=== PATIENT | male | born 1950 | race Asian ===

== ENCOUNTER 2023-08-20 10:38 | Outpatient (AMB) | payer MEDICARE, MEDICAID, SELFPAY ==
--- NOTE | 2023-08-20 10:40 | HO.NEPHOV_ITS ---
Intake Vital Signs 08/20/23 10:44 Height 5 ft 5 in Weight 187 lb BMI 31.1 BP 140/90 H Blood Pressure Location Rt brachial Position Sitting Pulse 92 Intake Visit Reasons: CKD (chronic kidney disease) Equipment Operator/Laborer Required: No Accompanied by: Spouse Allergies labetalol Allergy (Verified 08/19/23 16:36) Unknown tetanus toxoid, adsorbed Allergy (Verified 08/19/23 16:36) Unknown HPI HPI Comments History of Present Illness Details Juan Carlos was seen in follow up for his CKD. He has had H/O bleed around his acquired solitary kidney needing HD. He recovered his renal function and had come off HD. He has been having edema needing diuretic dose adjustment lately. His psych medications had been adjusted recently. He denies chest pain, nausea, vomiting, diarrhea but has SOB, PND & orthopnea. His urine output is good. He has no blood in the urine. He has not had any hospitalizations recently. He tries to hydrate himself and avoids NSAID's. Assessment & Plan Assessment & Plan (1) Chronic Kidney Disease: Code(s): N18.9 - Chronic kidney disease, unspecified Plan Renal function is at baseline Clinically hypervolemic C/W Bumex 2 mg daily C/W Metolazone 5 mg until Friday inclusive After Friday, Metalozone 5 mg twice a week Fluid restriction. 2 Gm Na restriction Will be candidate for Imdur soon All questions answered; F/U 2 weeks Coding Level of Care Code Est Pt Level 4 (56162) Diagnoses Chronic Kidney Disease N18.9 [facility] Medical History (Updated 08/20/23 @ 10:58 by Hellen Walker MA) Depression Anxiety CHF (congestive heart failure) COPD (chronic obstructive pulmonary disease) Hypertension Presence of Watchman left atrial appendage closure device Surgical History (Updated 08/20/23 @ 10:58 by Hellen Walker MA) H/O ankle fusion History of heart artery stent History of back surgery Family History (Updated 08/20/23 @ 11:00 by Hellen Walker MA) Father Leukemia Mother Heart disease Hypertension Social History Alcohol intake: never Patient Tobacco Use Status: Former Tobacco user Results Reviewed Results Reviewed: Creatinine 1.3
--- OUTSIDE RECORDS SUMMARY | 2023-08-20 10:40 | XMS_ITS | Continuity of Care Document ---
Author Name Unknown Organization [facility] Address [address] [place] [address]- Care Team Providers Care Brake Press Operator Name Role Phone Marbella RINCON, Brennan Primary Care Physician [facility]counter [facility] Date(s): 12/13/20 - 01/12/21 [facility] [address] [place] [address]- Allergies, Adverse Reactions, Alerts Substance Reaction Severity Status labetalol Active tetanus toxoid Active HORSE SERUM PROTEINS AB.IGE.RAST CLASS Active Immunizations Given and Recorded Vaccine Date Status Refusal Reason zoster vaccine, inactivated 01/03/21 Recorded zoster vaccine, inactivated 01/03/21 Recorded zoster vaccine, inactivated 10/03/20 Recorded SARS-CoV-2 (COVID-19) mRNA-1273 vaccine 12/09/20 R ecorded SARS-CoV-2 (COVID-19) mRNA-1273 vaccine 11/17/20 R ecorded SARS-CoV-2 (COVID-19) mRNA-1273 vaccine 11/17/20 R ecorded Influenza Virus Vaccine (oldterm) 08/16/20 Recorde d influenza virus vaccine, inactivated 07/09/19 Give n influenza virus vaccine, inactivated 1 08/12/18 Gi tiera influenza virus vaccine, inactivated 07/24/17 Give n pneumococcal 23-valent vaccine 2 08/12/18 Given pneumococcal 23-valent vaccine 07/22/11 Given pneumococcal 13-valent vaccine 05/07/16 Given Zoster Vaccine Live 07/27/15 Given tetanus/diphtheria/pertussis, acel(Tdap) 10/20/13 Given 1Result Comment: [08/12/2018] [facility] [id number] 2Result Comment: [08/12/2018] [facility] [id number] Medications Advair Diskus 500 mcg-50 mcg inhalation powder 1 puffs, Inhalation, 2 times a day, # 180 each, 0 Refills, Maintenance, Powder Start Date: 10/23/12 Status: Ordered amLODIPine 10 mg oral tablet 10 mg, 1, tablet, By Mouth, Daily, # 90 tablet, Refills 3, Tot. Refills 3, Maintenance, 06/02/20 13:26:00 EDT, Route to Pharmacy Electronically, [facility]/pharmacy #[id number], 167.6, cm, 03/27/20 8:14:00 EDT, Height, 90.7, kg, 09/08/19 8:17:00 EST, Dry Weight Start Date: 06/02/20 Stop Date: 05/28/21 Status: Ordered aspirin 81 mg oral delayed release tablet 81 mg, 1, tablet, By Mouth, Daily, # 30 tablet, Refills 0, Maintenance, 12/27/18 10:46:04 EDT Start Date: 12/27/18 Status: Ordered atorvastatin 40 mg oral tablet 1 tablet = 40 mg, By Mouth, Daily, # 30 tablet, 11 Refills, Maintenance, 10/25/20 7:17:00 EST, Tablet, Partial fill upon patient request if the prescription is for a schedule II opioid drug. Start Date: 10/25/20 Status: Ordered carvedilol 25 mg oral tablet 25 mg, 1, tablet, By Mouth, 2 times a day, # 60 tablet, Refills 11, Tot. Refills 11, Maintenance, 06/17/19 6:49:21 EDT, Route to Pharmacy Electronically, [id number], [facility]/pharmacy #[id number] Start Date: 06/17/19 Status: Ordered Centrum Silver Men's 1 tablet, By Mouth, Daily, 0 Refills, Maintenance, 09/19/17 9:44:06 Start Date: 09/19/17 Status: Ordered cetirizine 10 mg oral tablet 1 tablet = 10 mg, By Mouth, Daily, # 30 tablet, 0 Refills, Maintenance, Tablet Start Date: 01/17/13 Status: Ordered CPAP Machine See Instructions, # 1 each, Refills 0, Tot. Refills 0, Maintenance, BiPAP 20/15 cm with a heated humidifier. Recommend ordering a machine with compliance data tracking capabilities and following residual AHI. DX RICKIE G47.33, 04/05/19 13:25:34 EDT, Com... Start Date: 04/05/19 Status: Ordered CPAP Equipment See Instructions, # 1 each, Refills 11, Tot. Refills 11, Maintenance, Cpap supplies- mask, tubing, filters, headgear, water chamber, chin strap dx RICKIE G47.33, 04/05/19 13:25:39 EDT, Compound Start Date: 04/05/19 Status: Ordered Eliquis 5 mg oral tablet 1 tablet, By Mouth, 2 times a day, # 180 tablet, 5 Refills, Maintenance, 12/25/20 9:10:00 EST, [facility] STORE [id number], 167.6, cm, 11/28/20 10:41:00 EST, Height, 90.7, kg, 09/08/19 8:17:00 EST, Dry Weight Start Date: 12/25/20 Status: Ordered fenofibrate 160 mg oral tablet 0.5 tablet, By Mouth, Daily, # 45 tablet, 1 Refills, Maintenance, 11/27/20 14:33:00 EST, [facility]/pharmacy #[id number], 167.6, cm, 10/25/20 13:12:00 EST, Height, 90.7, kg, 09/08/19 8:17:00 EST, Dry Weight Start Date: 11/27/20 Status: Ordered hydrochlorothiazide 12.5 mg oral tablet See Instructions, 2 tabs po qAm and 1 tab qPM, # 90 each, 5 Refills, Maintenance, 08/14/20 16:03:00EDT, [facility]/pharmacy #[id number], dose increase, 167.6, cm, 03/27/20 8:14:00 EDT, Height, 90.7, kg, :17:00 EST, Dry Weight Start Date: 08/14/20 Status: Ordered Incruse Ellipta 62.5 mcg/inh inhalation powder 1 each, Inhalation, Every 24 hours, doses should be taken at least 24 hours apart, # 30 each, 0 Refills, Maintenance, 12/26/18 10:40:28 EST, Powder Start Date: 12/26/18 Status: Ordered lisinopril 20 mg oral tablet 20 mg, 1, tablet, By Mouth, Daily, # 30 tablet, Refills 11, Tot. Refills 11, Maintenance, 06/02/20 13:26:00 EDT, [id number] 167.6, cm, 03/27/20 8:14:00 EDT,Height, 90.7, kg, 09/08/19 8:17:00 EST, Dry Weight Start Date: 06/02/20 Status: Ordered LORazepam 0.5 mg oral tablet 1 tablet = 0.5 mg, By Mouth, Daily, PRN as needed for anxiety, for 30 days, # 30 tablet, 2 Refills,Acute 02/26/21 11:08:00 EDT, 11/28/20 11:08:00 EST, Tablet, [facility]/pharmacy #[id number], 167.6, cm, 11/28/2109:41:00 EST, Height, 90.7, kg, 09/08/19 8:17:00 ES... Start Date: 11/28/20 Stop Date: 02/26/21 Status: Ordered nitroglycerin 0.4 mg sublingual tablet 1 tablet = 0.4 mg, Sublingual, Every 5 minutes, PRN for chest pain, # 100 tablet, 3 Refills, Maintenance, 11/07/17 7:56:13, Tablet Start Date: 11/07/17 Status: Ordered omeprazole 40 mg oral enteric coated capsule See Instructions, TAKE 1 CAPSULE BY MOUTH 2 TIMES A DAY, # 180 capsule, 0 Refills, Soft Stop, 11/07/20 4:07:00 EST, [facility]/pharmacy #[id number], 167.6, cm, 10/25/20 13:12:00 EST, Height, 90.7, kg, 09/08/19 8:17:00 EST, Dry Weight Start Date: 11/07/20 Status: Ordered One Touch Delica Lancets See Instructions, # 1 box, Refills 1, Tot. Refills 1, Maintenance, 1 box = 100 lancets Check blood sugar bid icd 10 E11.9, 11/04/18 11:32:01 EST, Compound Start Date: 11/04/18 Status: Ordered One Touch Verio glucometer One Touch Verio glucometer, See Instructions, # 1 each, Refills 0, Tot. Refills 0, Maintenance, Test glucose levels bid Use with One Touch test strips and lancets ICD 10 E11.9, 11/04/18 11:34:09 EST,Compound Start Date: 11/04/18 Status: Ordered One Touch Verio test strips One Touch Verio test strips, See Instructions, # 60 each, Refills 11, Tot. Refills 11, Maintenance,Use with One Touch Verio glucometer to check glucose bid ICD 10 E 11.9, 11/04/18 11:35:47 EST, Compound Start Date: 11/04/18 Status: Ordered potassium chloride 10 mEq oral tablet, extended release 1 tablet = 10 mEq, By Mouth, Daily, # 30 tablet, 11 Refills, Maintenance, 08/31/20 11:42:00 EST, [facility]/pharmacy #[id number], 167.6, cm, 03/27/20 8:14:00 EDT, Height, 90.7, kg, 09/08/19 8:17:00 EST, Dry Weight Start Date: 08/31/20 Status: Ordered ProAir HFA 90 mcg/inh inhalation aerosol with adapter 2 puffs, Inhalation, Every 4 hours, PRN for wheezing, # 8.5 Gm, 0 Refills, Maintenance, Aerosol Start Date: 10/23/12 Status: Ordered rOPINIRole 1 mg oral tablet 2 tablet = 2 mg, By Mouth, Daily at bedtime, # 180 tablet, 1 Refills, Maintenance, 12/22/20 12:40:00 EST, Tablet, [facility]/pharmacy #[id number], 167.6, cm, 11/28/20 10:41:00 EST, Height, 90.7, kg, 09/08/19 8:17:00 EST, Dry Weight Start Date: 12/22/20 Stop Date: 06/20/21 Status: Ordered sertraline 100 mg oral tablet 1.5 tablet = 150 mg, By Mouth, Daily, # 45 tablet, 11 Refills, Maintenance, 11/28/20 11:02:00 EST, Tablet, [facility]/pharmacy #[id number], dose increase, 167.6, cm, 11/28/20 10:41:00 EST, Height, 90.7, kg, 09/08/19 8:17:00 EST, Dry Weight Start Date: 11/28/20 Stop Date: 11/23/21 Status: Ordered sertraline 100 mg oral tablet 2 tablet = 200 mg, By Mouth, Daily, DOSE INCREASE, # 60 tablet, 11 Refills, Maintenance, 01/08/21 14:15:00 EDT, Tablet, [facility]/pharmacy #1157, dose increase, 167.6, cm, 01/08/21 13:53:00 EDT, Height, 90.7, kg, 09/08/19 8:17:00 EST, Dry Weight Start Date: 01/08/21 Stop Date: 01/03/22 Status: Ordered tamsulosin 0.4 mg oral capsule 0.4 mg, 1, capsule, By Mouth, Daily, 30 minutes after the same meal, # 90 capsule, Refills 3, Tot. Refills 3, Maintenance, 10/25/20 7:20:00 EST, Route to Pharmacy Electronically, [facility]/pharmacy #[id number], 167.6, cm, 03/27/20 8:14:00 EDT, Height, 90.7, kg, 1... Start Date: 10/25/20 Status: Ordered Problem List Condition Effective Dates Status Health Status Inform ant Anxiety(Confirmed) Active Dilated aortic root/ Oct 2017(Confirmed) Active Atrial fibrillation(Confirmed) Active Atypical angina(Confirmed) Active CVA (cerebral vascular accident)(Confirmed) Active Chronic kidney disease stage 3(Confirmed) Active COPD without exacerbation(Confirmed) Active Arteriosclerotic heart disea se (ASHD)(Confirmed) Active Essential hypertension(Confirmed) Active Esophageal reflux(Confirmed) Active History of COPD(Confirmed) Active Hyperlipidemia(Confirmed) Active Nephrolithiasis(Confirmed) Active 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
--- OUTSIDE RECORDS SUMMARY | 2023-08-20 10:40 | XMS_ITS | Continuity of Care Document ---
Author Name Unknown Organization [facility] Address [address] [place] [address]- Care Team Providers Care Roll Plugger Machine Operator Name Role Phone Brennan Tyson MD Primary Care Physician [phone] [facility]counter [facility] Date[facility]s): 11/08/22 - 12/08/22 [facility] [address] [place] [address]- Allergies, Adverse Reactions, Alerts Substance Reaction Severity Status labetalol Active tetanus toxoid Active HORSE SERUM PROTEINS AB.IGE.RAST CLASS Active Immunizations Given and Recorded Vaccine Date Status Refusal Reason influenza virus vaccine, inactivated 08/12/22 Alexx rded influenza virus vaccine, inactivated 06/21/21 Alexx rded influenza virus vaccine, inactivated 06/27/20 Alexx rded influenza virus vaccine, inactivated 07/09/19 Give n influenza virus vaccine, inactivated 1 08/12/18 Gi tiera influenza virus vaccine, inactivated 07/24/17 Give n SARS-CoV-2 (COVID-19) mRNA-1273 vaccine 01/29/22 R ecorded SARS-CoV-2 (COVID-19) mRNA-1273 vaccine 06/21/21 R ecorded SARS-CoV-2 (COVID-19) mRNA-1273 vaccine 12/15/20 R ecorded SARS-CoV-2 (COVID-19) mRNA-1273 vaccine 12/09/20 R ecorded SARS-CoV-2 (COVID-19) mRNA-1273 vaccine 11/17/20 R ecorded SARS-CoV-2 (COVID-19) mRNA-1273 vaccine 11/17/20 R ecorded zoster vaccine, inactivated 01/03/21 Recorded zoster vaccine, inactivated 01/03/21 Recorded zoster vaccine, inactivated 10/03/20 Recorded Influenza Virus Vaccine (oldterm) 08/16/20 Recorde d pneumococcal 23-valent vaccine 2 08/12/18 Given pneumococcal 23-valent vaccine 07/22/11 Given pneumococcal 13-valent vaccine 05/07/16 Given Zoster Vaccine Live 07/27/15 Given tetanus/diphtheria/pertussis, acel(Tdap) 10/20/13 Given 1Result Comment: [08/12/2018] [facility] [id number] 2Result Comment: [08/12/2018] [facility] [id number] Medications Advair Diskus 500 mcg-50 mcg inhalation powder 1 puffs, Inhalation, 2 times a day, 0 Refills, Maintenance, 10/23/12 12:03:02 EST, Powder Start Date: 10/23/12 Status: Ordered aspirin 81 mg oral delayed release tablet 81 mg, 1, tablet, By Mouth, Daily, Refills 0, Maintenance, 12/27/18 10:46:04 EDT Start Date: 12/27/18 Status: Ordered atorvastatin 40 mg oral tablet 1 tablet, By Mouth, Daily, # 90 tablet, 1 Refills, Maintenance, 07/08/22 0:13:00 EDT, [facility] STORE [id number], 167.6, cm, 06/18/22 14:40:00 EDT, Height Start Date: 07/08/22 Status: Ordered buPROPion 150 mg/24 hours (XL) oral tablet, extended release 1 tablet = 150 mg, By Mouth, Every 24 hours, # 14 tablet, 0 Refills, Maintenance, 10/18/22 17:03:00EST, [facility]/pharmacy #[id number], Partial fill upon patient request if the prescription is for a schedule IIopioid drug., 1 tablet By Mouth Every 24 hours,x14... Start Date: 10/18/22 Stop Date: 11/01/22 Status: Ordered buPROPion 300 mg/24 hours (XL) oral tablet, extended release 1 tablet = 300 mg, By Mouth, Daily, Only to be started after the first 2 weeks of 150 mg daily, # 30 tablet, 11 Refills, Maintenance, 10/20/22 11:47:00 EST, ER Tablet, [facility]/pharmacy #[id number], Partial fill upon patient request if the prescription is for a... Start Date: 10/20/22 Status: Ordered carvedilol 25 mg oral tablet 1, tablet, By Mouth, 2 times a day, # 180 tablet, Refills 3, Route to Pharmacy Electronically, [facility], 167.6, cm, 11/21/21 9:53:00 EST, Height Start Date: 02/05/22 Status: Ordered Centrum Silver Men's 1 tablet, By Mouth, Daily, 0 Refills, Maintenance, 09/19/17 9:44:06 Start Date: 09/19/17 Status: Ordered cholecalciferol 2000 intl units oral tablet By Mouth, Daily, 0 Refills, Maintenance, 09/28/22 10:54:00 EST, Tablet, Partial fill upon patient request if the prescription is for a schedule II opioid drug. Start Date: 09/28/22 Status: Ordered CPAP Machine See Instructions, # [...] EDT, Compound Start Date: 04/05/19 Status: Ordered fenofibrate 160 mg oral tablet 0.5 tablet, By Mouth, Daily, # 45 tablet, 4 Refills, [facility] STORE [facility], 167.6, cm, 04/01/22 8:47:00 EDT, Height Start Date: 06/07/22 Status: Ordered fluticasone 50 mcg/inh nasal spray 2 sprays, Nares, Both, Daily, Maintenance, 08/18/22 17:16:00 EDT, [place], Partial fill upon patient request if the prescription is for a schedule II opioid drug. Start Date: 08/18/22 Status: Ordered folic acid 1 mg oral tablet 1 mg, 1, tablet, By Mouth, Daily, Refills 0, Maintenance, 09/28/22 10:54:00 EST, Partial fill upon patient request if the prescription is for a schedule II opioid drug. Start Date: 09/28/22 Status: Ordered heparin 5000 u/ml injectable solution = 5,000 units, Subcutaneous Injection, 3 times a day, # 90 mL, 5 Refills, Maintenance, 10/17/22 11:51:00 EST, [facility], Partial fill upon patient request if the prescription is fora schedule II opioid drug., 165, cm, 09/25/22 13:10... Start Date: 10/17/22 Status: Ordered Incruse Ellipta 62.5 mcg/inh inhalation powder 1 each, Inhalation, Every 24 hours, doses should be taken at least 24 hours apart, 0 Refills, Maintenance, 12/26/18 10:40:28 EST, Powder Start Date: 12/26/18 Status: Ordered Insulin Syringe, BD Ultra-Fine 1 cc 31 G x 8 mm (5/16in) See Instructions, # 100 each, Refills 5, Tot. Refills 5, Maintenance, To use as directed for heparin injections three times daily, 10/17/22 10:26:00 EST, Supply, 165, cm, 09/25/22 13:10:00 EST, Height, 103, kg, 09/19/22 22:30:00 EST, Dry Weight Start Date: 10/17/22 Status: Ordered isosorbide mononitrate 30 mg oral tablet, extended release 1 tablet = 30 mg, By Mouth, Daily in AM, Maintenance, 08/18/22 17:21:00 EDT, ER Tablet, Partial fill upon patient request if the prescription is for a schedule II opioid drug. Start Date: 08/18/22 Status: Ordered melatonin 3 mg oral tablet = 3 mg, By Mouth, Daily at bedtime, PRN Insomnia, 0 Refills, Maintenance, 09/28/22 10:54:00 EST, Tablet, Partial fill upon patient request if the prescription is for a schedule II opioid drug. Start Date: 09/28/22 Status: Ordered minoxidil 2.5 mg oral tablet 1 tablet = 2.5 mg, By Mouth, Daily, 0 Refills, Maintenance, 08/29/22 8:51:00 EST, Partial fill uponpatient request if the prescription is for a schedule II opioid drug. Start Date: 08/29/22 Status: Ordered montelukast 10 mg oral tablet 10 mg, 1, tablet, By Mouth, Daily at bedtime, Refills 0, Maintenance, 01/29/21 10:17:00 EDT, Partial fill upon patient request if the prescription is for a schedule II opioid drug. Start Date: 01/29/21 Status: Ordered omeprazole 40 mg oral enteric coated capsule 1 capsule, By Mouth, 2 times a day, for 90 days, # 180 capsule, 3 Refills, Physician Stop 04/04/23 15:00:00 EDT, 04/09/22 15:00:00 EDT, [facility]/pharmacy #1157, 167.6, cm, 04/01/22 8:47:00 EDT, Height Start Date: 04/09/22 Stop Date: 04/04/23 Status: Ordered One Touch Delica Lancets See Instructions, # 100 each, Refills 3, Tot. Refills 3, Maintenance, 1 box = 100 lancets Check blood sugar QD icd 10 E11.9, 10/18/22 17:08:00 EST, Compound, 165, cm, 10/18/22 16:17:00 EST, Height, 103, kg, 09/19/22 22:30:00 EST, Dry Weight Start Date: 10/18/22 Status: Ordered One Touch Verio glucometer One Touch Verio glucometer, See Instructions, # 1 each, Refills 0, Tot. Refills 0, Maintenance, Test glucose levels QD Use with One Touch test strips and lancets ICD 10 E11.9, 10/18/22 17:08:00 EST, Compound, 165, cm, 10/18/22 16:17:00 EST, Height,... Start Date: 10/18/22 Status: Ordered One Touch Verio test strips One Touch Verio test strips, See Instructions, # 100 each, Refills 3, Tot. Refills 3, Maintenance, Use with One Touch Verio glucometer to check glucose QD ICD 10 E 11.9, 10/18/22 17:08:00 EST, Compound, 165, cm, 10/18/22 16:17:00 EST, Height, 103, kg... Start Date: 10/18/22 Status: Ordered Pen [place], 31 G x 5 mm BD Ultra Fine III See Instructions, # 100 each, Refills 5, Tot. Refills 5, Maintenance, use as directed three times daily for heparin injections, 10/17/22 10:23:00 EST, Supply, 165, cm, 09/25/22 13:10:00 EST, Height, 103, kg, 09/19/22 22:30:00 EST, Dry Weight Start Date: 10/17/22 Stop Date: 04/15/23 Status: Ordered Rollator Walker Rollator Walker, See Instructions, # 1 each, Refills 0, Tot. Refills 0, Maintenance, use daily for all ADL's, 09/06/22 11:47:00 EST, Supply Start Date: 09/06/22 Status: Ordered rOPINIRole 1 mg oral tablet 2 tablet = 2 mg, By Mouth, Daily at bedtime, # 180 tablet, 1 Refills, Maintenance, 10/28/22 8:47:00EST, Tablet, [facility]/pharmacy #1157, 165, cm, 10/18/22 16:17:00 EST, Height, 103, kg, 09/19/22 22:30:00EST, Dry Weight Start Date: 10/28/22 Stop Date: 04/26/23 Status: Ordered tamsulosin 0.4 mg oral capsule See Instructions, TAKE 1 CAPSULE BY MOUTH DAILY 30 MINUTES AFTER THE SAME MEAL, # 90 capsule, Refills 1, Maintenance, 11/08/22 11:58:00 EST, Instructions Replace Required Details, Route to Pharmacy Electronically, [id number], 165, cm, 10/18/22 16... Start Date: 11/08/22 Status: Ordered traZODone 50 mg oral tablet 25 mg, 0.5, tablet, By Mouth, Every 8 hours, PRN, Refills 0, Maintenance, Anxiety, 09/28/22 10:55:00 EST, Partial fill upon patient request if the prescription is for a schedule II opioid drug. Start Date: 09/28/22 Status: Ordered Problem List Condition Confirmation Course Effective Dates Status H ealth Status Informant Anxiety Confirmed Active Dilated aortic root/ Oct 2017 Confirmed Active Aortic insufficiency (mild to modrate on echo 08/10) Confirmed Active Atrial fibrillation Confirmed Active Atypical angina Confirmed Active CVA (cerebral vascular accident) Confirmed Active Chronic kidney disease, stage 3a 1 Confirmed Active COPD without exacerbation Confirmed Active Arteriosclerotic heart disease (ASHD) Confirmed Active Diastolic dysfunction Confirmed Active Essential hypertension Confirmed Active Esophageal reflux Confirmed Active History of COPD Confirmed Active Hyperlipidemia Confirmed Active Nephrolithiasis Confirmed Active Major depression in partial remission Confirmed Active Obesity Confirmed Active RICKIE (obstructive sleep apnea) Confirmed Active CAD S/P percutaneous coronary angioplasty Confirmed Active Type 2 diabetes mellitus with renal manifestations Confirmed Active 1Per chart review meeting GFR criteria Social History Social History Type Response Smoking Status Former smoker; Type: Cigarettes; Other: quit 2006; entered on: 09/19/17 Sex Patient Care team information Care Team Personnel Name: Nayeli Fernandez RN Position: S RN Member Role: Primary Care Nurse Name: Erin Pendleton RN Position: S RN Member Role: Primary Care Nurse Name: Luciano Hernandez MD Position: [facility] Renal MD Member Role: Lifetime Consulting Physician Address: Address: [address] [facility] [place] [address]- [place] Name: Brennan Tyson MD Position: [facility] Primary Care Physician Member Role: PCP Address: Address: [address] [place] [id number]- Name: Roxy Akers RN Position: S RN Member Role: Primary Care Nurse Name: Flores Freeman RN Position: S RN Member Role: Primary Care Nurse Name: Fabiana Hairston RN Position: S RN Member Role: Primary Care Nurse Care Team Related Persons Name: PRABHAKAR JACINTO Address: home [address] [place] [id number] Name: KANG JACINTO Name: JOSE SHAW Address: [place] [address] Name: ANUM DUBOSE Address: home [address] [place] [id number]
--- OUTSIDE RECORDS SUMMARY | 2023-08-20 10:40 | XMS_ITS | Continuity of Care Document ---
Author Name Unknown Organization [facility] Address [address] [place] [address]- Care Team Providers Care Production Support Consultant Name Role Phone Brennan Tyson MD Primary Care Physician Encounter [facility] Date(s): 02/07/21 - 03/09/21 [facility] [address] [place] [address]- Attending Physician: Joy Dove Admitting Physician: Joy Dove Referring Physician: AdmtrJoy Allergies, Adverse Reactions, Alerts Substance Reaction Severity [...] tetanus/diphtheria/pertussis, acel(Tdap) 10/20/13 Given 1Result Comment: [08/12/2018] [facility] [id number] 2Result Comment: [08/12/2018] [facility] [id number] Medications Advair Diskus 500 mcg-50 mcg inhalation powder 1 puffs, Inhalation, 2 times a day, # 180 each, 0 Refills, Maintenance, Powder Start Date: 10/23/12 Status: Ordered amLODIPine 10 mg oral tablet 10 mg, 1, tablet, By Mouth, Daily, # 90 tablet, Refills 3, Tot. Refills 3, Maintenance, 06/02/20 13:26:00 EDT, Route to Pharmacy Electronically, [facility]/pharmacy #1157, 167.6, cm, 03/27/20 8:14:00 EDT, [...] Daily, # 30 tablet, 11 Refills, Maintenance, 02/28/21 15:05:00 EDT, Tablet, [facility]/pharmacy #1157, Partial fill upon patient request if the prescription is for a schedule II opioid drug., 167.6, cm, 02/07/21 9:57:00 EDT, Ajigh... Start Date: 02/28/21 Status: Ordered carvedilol 25 mg oral tablet 25 mg, 1, tablet, By Mouth, 2 times a day, # 60 tablet, Refills 11, Tot. Refills 11, Maintenance, 02/28/21 16:34:00 EDT, Route to Pharmacy Electronically, [facility]/pharmacy #1157, 167.6, cm, 02/07/21 9:57:00 EDT, Height, 90.7, kg, 09/08/19 8:17:00 EST, Dry... Start Date: 02/28/21 Status: Ordered Centrum Silver Men's 1 tablet, [...] tablet, 5 Refills, Maintenance, 12/25/20 9:10:00 EST, [facility] STORE 58447, 167.6, cm, 11/28/20 10:41:00 EST, Height, 90.7, kg, 09/08/19 8:17:00 EST, Dry Weight Start Date: 12/25/20 Status: Ordered fenofibrate 160 mg oral tablet 0.5 tablet, By Mouth, Daily, # 45 tablet, 1 Refills, Maintenance, 11/27/20 14:33:00 EST, [facility], 167.6, cm, 10/25/20 13:12:00 EST, Height, 90.7, kg, 09/08/19 8:17:00 EST, Dry Weight Start Date: 11/27/20 Status: Ordered hydrochlorothiazide 12.5 mg oral tablet See Instructions, 2 tabs po qAm and 1 tab qPM, # 90 each, 2 Refills, Maintenance, 02/12/21 7:40:00 EDT, [facility], dose increase, 167.6, cm, 02/07/21 9:57:00 EDT, Height, 90.7, kg, 09/08/19 8:17:00 EST, Dry Weight Start Date: 02/12/21 Status: Ordered Incruse Ellipta 62.5 mcg/inh inhalation [...] 06/02/20 13:26:00 EDT, Route to Pharmacy Electronically, [facility]/pharmacy #1157, 167.6, cm, 03/27/20 8:14:00 EDT,Height, 90.7, kg, 09/08/19 8:17:00 EST, Dry Weight Start Date: 06/02/20 Status: Ordered montelukast 10 mg oral tablet 10 mg, 1, tablet, By Mouth, Daily, Refills 0, Maintenance, 01/29/21 10:17:00 EDT, Partial fill uponpatient request if the prescription is for a schedule II opioid drug. Start Date: 01/29/21 Status: Ordered nitroglycerin 0.4 mg sublingual tablet 1 tablet = 0.4 mg, Sublingual, Every 5 minutes, PRN for chest pain, # 100 tablet, 3 Refills, Maintenance, 11/07/17 7:56:13, Tablet Start Date: 11/07/17 Status: Ordered omeprazole 40 mg oral enteric coated capsule 1 capsule, By Mouth, 2 times a day, # 180 capsule, 0 Refills, Maintenance, 02/01/21 7:55:00 EDT, [facility] STORE 25674, 167.6, cm, 01/29/21 10:15:00 EDT, Height, 90.7, kg, 09/08/19 8:17:00 EST, Dry Weight Start Date: 02/01/21 Status: Ordered One Touch Delica Lancets See [...] tablet, 11 Refills, Maintenance, 08/31/20 11:42:00 EST, [facility]/pharmacy #1157, 167.6, cm, 03/27/20 8:14:00 EDT, [...] 1 Refills, Maintenance, 12/22/20 12:40:00 EST, Tablet, [facility]/pharmacy #1157, 167.6, cm, 11/28/20 10:41:00 EST, Height, 90.7, kg, 09/08/19 8:17:00 EST, Dry Weight Start Date: 12/22/20 Stop Date: 06/20/21 Status: Ordered sertraline 100 mg oral tablet 2 tablet = 200 mg, By Mouth, Daily, DOSE INCREASE, # 60 tablet, 11 Refills, Maintenance, 01/08/21 14:15:00 EDT, Tablet, [facility]/pharmacy #1157, dose increase, 167.6, cm, 01/08/21 13:53:00 EDT, Height, 90.7, kg, 09/08/19 8:17:00 EST, Dry Weight Start Date: 01/08/21 Stop Date: 01/03/22 Status: Ordered tamsulosin 0.4 mg oral capsule 0.4 mg, 1, capsule, By Mouth, Daily, 30 minutes after the same meal, # 90 capsule, Refills 3, Tot. Refills 3, Maintenance, 10/25/20 7:20:00 EST, Route to Pharmacy Electronically, [facility]/pharmacy #1157, 167.6, cm, 03/27/20 8:14:00 EDT, [...]
--- OUTSIDE RECORDS SUMMARY | 2023-08-20 10:40 | XMS_ITS | Continuity of Care Document ---
Author Name Unknown Organization [facility] Address [address] [place] [address]- Care Team Providers Care Orchid Transplanter Name Role Phone Brennan Tyson MD Primary Care Physician Encounter [facility] Date(s): 01/29/21 - 02/05/21 [facility] [address] [place] [address]- Encounter Diagnosis Major depression in partial remission(Discharge Diagnosis) - 01/29/21 Attending Physician: Brennan Tyson MD Allergies, Adverse Reactions, Alerts Substance Reaction Severity [...] tetanus/diphtheria/pertussis, acel(Tdap) 10/20/13 Given 1Result Comment: [08/12/2018] [facility] [id number] 2Result Comment: [08/12/2018] [facility] [id number] Medications Advair Diskus 500 mcg-50 mcg inhalation powder 1 puffs, Inhalation, 2 times a day, # 180 each, 0 Refills, Maintenance, Powder Start Date: 10/23/12 Status: Ordered amLODIPine 10 mg oral tablet 10 mg, 1, tablet, By Mouth, Daily, # 90 tablet, Refills 3, Tot. Refills 3, Maintenance, 06/02/20 13:26:00 EDT, Route to Pharmacy Electronically, [facility]/pharmacy #1157, 167.6, cm, 03/27/20 8:14:00 EDT, Height, [...] 06/17/19 6:49:21 EDT, Route to Pharmacy Electronically, [id number], [facility]/pharmacy #1157 Start Date: 06/17/19 Status: Ordered Centrum [...] tablet, 5 Refills, Maintenance, 12/25/20 9:10:00 EST, [facility], 167.6, cm, 11/28/20 10:41:00 EST, Height, 90.7, [...] 90 each, 5 Refills, Maintenance, 08/14/20 16:03:00EDT, [facility], dose increase, 167.6, cm, 03/27/20 8:14:00 EDT, Height, 90.7, kg, 198:17:00 EST, Dry Weight Start Date: 08/14/20 Status: [...] Route to Pharmacy Electronically, [facility]/pharmacy #1157, 167.6, cm, 03/27/20 8:14:00 EDT,Height, 90.7, kg, 09/08/19 8:17:00 EST, Dry Weight Start Date: 06/02/20 Status: Ordered LORazepam 0.5 mg oral tablet 1 tablet = 0.5 mg, By Mouth, Daily, PRN as needed for anxiety, for 30 days, # 30 tablet, 2 Refills,Acute 02/26/21 11:08:00 EDT, 11/28/20 11:08:00 EST, [facility] 167.6, cm, 11/28/2109:41:00 EST, Height, 90.7, kg, 09/08/19 8:17:00 ES... Start Date: 11/28/20 Stop Date: 02/26/21 Status: Ordered montelukast 10 mg oral tablet [...] capsule, 0 Refills, Maintenance, 02/01/21 7:55:00 EDT, [facility] STORE 34821, 167.6, cm, 01/29/21 10:15:00 EDT, Height, 90.7, [...] 1 Refills, Maintenance, 12/22/20 12:40:00 EST, Tablet, [facility], 167.6, cm, 11/28/20 10:41:00 EST, Height, 90.7, kg, 09/08/19 8:17:00 EST, Dry Weight Start Date: 12/22/20 Stop Date: 06/20/21 Status: Ordered sertraline 100 mg oral tablet 2 tablet = 200 mg, By Mouth, Daily, DOSE INCREASE, # 60 tablet, 11 Refills, Maintenance, 01/08/21 14:15:00 EDT, Tablet, [facility]/pharmacy #1157, dose increase, 167.6, cm, 01/08/21 13:53:00 EDT, Height, 90.7, kg, 09/08/19 8:17:00 EST, Dry Weight Start Date: 01/08/21 Stop Date: 01/03/22 Status: Ordered tamsulosin 0.4 mg oral capsule 0.4 mg, 1, capsule, By Mouth, Daily, 30 minutes after the same meal, # 90 capsule, Refills 3, Tot. Refills 3, Maintenance, 10/25/20 7:20:00 EST, Route to Pharmacy Electronically, [facility]/pharmacy #1157, 167.6, cm, 03/27/20 8:14:00 EDT, Height, [...] diabetes mellitus wit h renal manifestations(Confirmed) Active Diagnosis Diagnosis Type Effective Dates Health Status Clinical Service Informant Major depression in partial remission Discharge Diagnosis 01/29/21 Vital Signs Most recent to oldest [Reference Range]: 1 Height 167.6 cm (01/29/21 10:15 AM) Oxygen Saturation [94-100 %] 96 % (01/29/21 10:15 AM) Pulse Rate [55-90 bpm] 77 bpm (01/29/21 10:15 AM) Blood Pressure [90-138/55-84 mm Hg] 132/ 76mm Hg (01/29/21 10:15 AM) Blood pressure sites Arm, right (01/29/21 10:15 AM) Social History Social History Type Response Smoking Status Former smoker; Type: Cigarettes; Other: quit 2006; entered on: 09/19/17 Sex
--- OUTSIDE RECORDS SUMMARY | 2023-08-20 10:40 | XMS_ITS | Continuity of Care Document ---
Author Name Unknown Organization [facility] Address [address] [place] [address]- Care Team Providers Care Condenser Tube Tender Name Role Phone Brennan Tyson MD Primary Care Physician [phone] Encounter [facility] Date(s): 07/08/22 - 08/07/22 [facility] [address] [place] [address]- Attending Physician: AdmJoy hernandez Admitting Physician: Admtr, Ar8 Referring Physician: Admtr, Ar8 Allergies, Adverse Reactions, Alerts Substance Reaction Severity Status labetalol Active tetanus toxoid Active HORSE SERUM PROTEINS AB.IGE.RAST CLASS Active Immunizations Given and Recorded Vaccine Date Status Refusal Reason SARS-CoV-2 (COVID-19) mRNA-1273 vaccine 01/29/22 R ecorded SARS-CoV-2 (COVID-19) mRNA-1273 vaccine 06/21/21 R ecorded SARS-CoV-2 (COVID-19) mRNA-1273 vaccine 12/15/20 R ecorded SARS-CoV-2 (COVID-19) mRNA-1273 vaccine 12/09/20 R ecorded SARS-CoV-2 (COVID-19) mRNA-1273 vaccine 11/17/20 R ecorded SARS-CoV-2 (COVID-19) mRNA-1273 vaccine 11/17/20 R ecorded influenza virus vaccine, inactivated 06/21/21 Alexx rded influenza virus vaccine, inactivated 06/27/20 Alexx rded influenza virus vaccine, inactivated 07/09/19 Give n influenza virus vaccine, inactivated 1 08/12/18 Gi tiera influenza virus vaccine, inactivated 07/24/17 Give n zoster vaccine, inactivated 01/03/21 Recorded zoster vaccine, inactivated 01/03/21 Recorded zoster vaccine, inactivated 10/03/20 Recorded Influenza Virus Vaccine (oldterm) 08/16/20 Recorde d pneumococcal 23-valent vaccine 2 08/12/18 Given pneumococcal 23-valent vaccine 07/22/11 Given pneumococcal 13-valent vaccine 05/07/16 Given Zoster Vaccine Live 07/27/15 Given tetanus/diphtheria/pertussis, acel(Tdap) 10/20/13 Given 1Result Comment: [08/12/2018] [facility] [id number] 2Result Comment: [08/12/2018] [facility] [id number] Medications Advair Diskus 500 mcg-50 mcg inhalation powder 1 puffs, Inhalation, 2 times a day, # 180 each, 0 Refills, Maintenance, Powder Start Date: 10/23/12 Status: Ordered amLODIPine 10 mg oral tablet 1 tablet, By Mouth, Daily, # 90 tablet, 1 Refills, Maintenance, 08/02/22 15:32:00 EDT, [facility]39, 167.6, cm, 07/08/22 10:30:00 EDT, Height Start Date: 08/02/22 Status: Ordered aspirin 81 mg oral delayed release tablet 81 mg, 1, tablet, By Mouth, Daily, # 30 tablet, Refills 0, Maintenance, 12/27/18 10:46:04 EDT Start Date: 12/27/18 Status: Ordered atorvastatin 40 mg oral tablet 1 tablet, By Mouth, Daily, # 90 tablet, 1 Refills, Maintenance, 07/08/22 0:13:00 EDT, [facility] 83343, 167.6, cm, 06/18/22 14:40:00 EDT, Height Start Date: 07/08/22 Status: Ordered carvedilol 25 mg oral tablet 1, tablet, By Mouth, 2 times a day, # 180 tablet, Refills 3, Route to Pharmacy Electronically, [facility] 26678, 167.6, cm, 11/21/21 9:53:00 EST, Height Start [...] EDT, Compound Start Date: 04/05/19 Status: Ordered duloxetine 30 mg oral enteric coated capsule 1 capsule = 30 mg, By Mouth, Daily, to be combined with 60mg capsule at time of next refill for total daily dose of 90mg, # 30 capsule, 11 Refills, Maintenance, 07/08/22 10:56:00 EDT, [facility]/pharmacy #1157, Partial fill upon patient request if the prescr... Start Date: 07/08/22 Status: Ordered duloxetine 60 mg oral enteric coated capsule 1 capsule = 60 mg, By Mouth, Daily, dose increase, # 30 capsule, 11 Refills, Maintenance, 06/18/22 15:02:00 EDT, [facility]/pharmacy #1157, Partial fill upon patient request if the prescription is for a schedule II opioid drug., 167.6, cm, 06/18/22 14:40:00... Start Date: 06/18/22 Status: Ordered Eliquis 5 mg oral tablet 1 tablet, By Mouth, 2 times a day, # 180 tablet, 5 Refills, [facility], 167.6, cm, 11/21/21 9:53:00 EST, Height Start Date: 02/05/22 Status: Ordered fenofibrate 160 mg oral tablet 0.5 tablet, By Mouth, Daily, # 45 tablet, 4 Refills, [facility], 167.6, cm, 04/01/22 8:47:00 EDT, Height Start Date: 06/07/22 Status: Ordered furosemide 20 mg oral tablet 20 mg, 1, tablet, By Mouth, Daily, Refills 0, Maintenance, 08/29/21 11:26:00 EST, Partial fill uponpatient request if the prescription is for a schedule II opioid drug. Start Date: 08/29/21 Status: Ordered Incruse Ellipta 62.5 mcg/inh inhalation powder 1 each, Inhalation, Every 24 hours, doses should be taken at least 24 hours apart, # 30 each, 0 Refills, Maintenance, 12/26/18 10:40:28 EST, Powder Start Date: 12/26/18 Status: Ordered lisinopril 20 mg oral tablet 1, tablet, By Mouth, Daily, # 90 tablet, Refills 1, Route to Pharmacy Electronically, [facility] STORE 27882, 167.6, cm, 11/21/21 9:53:00 EST, Height Start Date: 02/05/22 Status: Ordered LORazepam 0.5 mg oral tablet 1 tablet = 0.5 mg, By Mouth, Daily, PRN as needed for anxiety, for 30 days, # 30 tablet, 0 Refills,Acute 08/15/22 13:49:00 EDT, 07/16/22 13:49:00 EDT, Tablet, [facility]/pharmacy #1157, 167.6, cm, 07/08/2210:30:00 EDT, Height Start Date: 07/16/22 Stop Date: 08/15/22 Status: Ordered montelukast 10 mg oral tablet [...] Stop 04/04/23 15:00:00 EDT, 04/09/22 15:00:00 EDT, [facility]/pharmacy #1157, 167.6, cm, 04/01/22 8:47:00 EDT, Height [...] EST, Compound Start Date: 11/04/18 Status: Ordered Potassium Chloride (Moh-Pccz-Awp 10) 10 mEq oral tablet, extended release 1 tablet, By Mouth, Daily, # 90 tablet, 3 Refills, [facility] STORE 26508, 167.6, cm, 06/06/21 9:25:00 EDT, Height, 90.7, kg, 09/08/19 8:17:00 EST, Dry Weight Start Date: 08/20/21 Status: Ordered ProAir HFA 90 mcg/inh inhalation aerosol with adapter 2 puffs, Inhalation, Every 4 hours, PRN for wheezing, # 8.5 Gm, 0 Refills, Maintenance, Aerosol Start Date: 10/23/12 Status: Ordered rOPINIRole 1 mg oral tablet See Instructions, TAKE 2 TABLETS BY MOUTH DAILY AT BEDTIME, # 180 tablet, 1 Refills, Maintenance, 08/29/21 11:45:00 EST, [facility]/pharmacy #1157, 167.6, cm, 06/06/21 9:25:00 EDT, Height, 90.7, kg, 09/08/19 8:17:00 EST, Dry Weight Start Date: 08/29/21 Status: Ordered rOPINIRole 1 mg oral tablet 2 tablet = 2 mg, By Mouth, Daily at bedtime, # 180 tablet, 1 Refills, Maintenance, 12/22/20 12:40:00 EST, Tablet, [facility]/pharmacy #1157, 167.6, cm, 11/28/20 10:41:00 EST, Height, 90.7, kg, 09/08/19 8:17:00 EST, Dry Weight Start Date: 12/22/20 Stop Date: 06/20/21 Status: Ordered sertraline 100 mg oral tablet 1.5 tablet = 150 mg, By Mouth, Daily, dose increase, # 135 tablet, 3 Refills, Maintenance, 228:32:00 EDT, Tablet, [facility]/pharmacy #1157, dose increase, 167.6, cm, 02/22/22 7:57:00 EDT, Height Start Date: 02/22/22 Stop Date: 02/17/23 Status: Ordered tamsulosin 0.4 mg oral capsule See Instructions, TAKE 1 CAPSULE BY MOUTH DAILY 30 MINUTES AFTER THE SAME MEAL, # 90 capsule, Refills 1, Instructions Replace Required Details, Route to Pharmacy Electronically, [facility] STORE 97607, 167.6, cm, 02/22/22 7:57:00 EDT, Height Start Date: 03/10/22 Status: Ordered Problem List Condition Confirmation Course [...] Major depression in partial remission Confirmed Active Obese class I Confirmed Active Obesity Confirmed Active RICKIE (obstructive sleep apnea) Confirmed Active CAD S/P percutaneous coronary angioplasty Confirmed Active 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
--- OUTSIDE RECORDS SUMMARY | 2023-08-20 10:40 | XMS_ITS | Continuity of Care Document ---
Author Name Unknown Organization [facility] Address [address] [place] [id number]- Care Team Providers Care Pen Tender Name Role Phone Brennan Tyson MD Primary Care Physician Encounter [facility] Date(s): 06/02/20 - 07/02/20 [facility] [address] [place] [address]- [facility] Allergies, Adverse Reactions, Alerts Substance Reaction Severity Status labetalol Active tetanus toxoid Active HORSE SERUM PROTEINS AB.IGE.RAST CLASS Active Immunizations Given and Recorded Vaccine Date Status Refusal Reason influenza virus vaccine, inactivated 07/09/19 Give n influenza virus vaccine, inactivated 1 08/12/18 Gi tiera influenza virus vaccine, inactivated 07/24/17 Give n pneumococcal 23-valent vaccine 2 08/12/18 Given pneumococcal 23-valent vaccine 07/22/11 Given pneumococcal 13-valent vaccine 05/07/16 Given Zoster Vaccine Live 07/27/15 Given tetanus/diphtheria/pertussis, acel(Tdap) 10/20/13 Given 1Result Comment: [08/12/2018] [facility] [id number] 2Result Comment: [08/12/2018] [facility] [id number] Medications Advair Diskus 500 mcg-50 mcg inhalation powder 1 puffs, Inhalation, 2 times a day, # 180 each, 0 Refills, Maintenance, Powder Start Date: 10/23/12 Status: Ordered amLODIPine 10 mg oral tablet 10 mg, 1, tablet, By Mouth, Daily, # 90 tablet, Refills 3, Tot. Refills 3, Maintenance, 06/02/20 13:26:00 EDT, Route to Pharmacy Electronically, [facility]/pharmacy #1157, 167.6, cm, 06/08/20 8:14:00 EDT, Height, 90.7, kg, 09/08/19 8:17:00 EST, Dry Weight Start Date: 06/02/20 Stop Date: 05/28/21 Status: Ordered aspirin 81 mg oral delayed release tablet 81 mg, 1, tablet, By Mouth, Daily, # 30 tablet, Refills 0, Maintenance, 12/27/18 10:46:04 EDT Start Date: 12/27/18 Status: Ordered atorvastatin 40 mg oral tablet 0.5 tablet = 20 mg, By Mouth, Daily, 0 Refills, Maintenance, 09/26/14 8:08:43 Start Date: 09/26/14 Status: Ordered carvedilol 25 mg oral tablet 25 mg, 1, tablet, By Mouth, 2 times a day, # 60 tablet, Refills 11, Tot. Refills 11, Maintenance, 06/17/19 6:49:21 EDT, Route to Pharmacy Electronically, [id number], [facility]/pharmacy #1157 Start Date: 06/17/19 Status: Ordered [...] Ordered Eliquis 5 mg oral tablet 1 tablet = 5 mg, By Mouth, 2 times a day, # 180 tablet, 5 Refills, Maintenance, 10/01/19 8:57:00 EST, Tablet, 167.6, cm, 09/08/19 8:17:52 EST, Height, 90.7, kg, 09/08/19 8:17:52 EST, Dry Weight Start Date: 10/01/19 Status: Ordered fenofibrate 160 mg oral tablet 0.5 tablet, By Mouth, Daily, # 45 tablet, 3 Refills, Maintenance, 12/01/19 13:16:00 EST, [facility] STORE 95420, 167.6, cm, 11/24/19 9:18:00 EST, Height, 90.7, kg, 09/08/19 8:17:00 EST, Dry Weight Start Date: 12/01/19 Status: Ordered hydrochlorothiazide 12.5 mg oral tablet See Instructions, 2 tabs po qAm and 1 tab qPM, # 90 each, 11 Refills, Maintenance, 07/09/19 11:46:52 EDT, dose increase Start Date: 07/09/19 Status: Ordered Incruse Ellipta 62.5 mcg/inh inhalation [...] 06/02/20 13:26:00 EDT, Route to Pharmacy Electronically, [facility]/pharmacy #1157, 167.6, cm, 03/27/20 8:14:00 EDT,Height, 90.7, kg, 09/08/19 8:17:00 EST, Dry Weight Start Date: 06/02/20 Status: Ordered nitroglycerin 0.4 mg sublingual tablet 1 tablet = 0.4 mg, Sublingual, Every 5 minutes, PRN for chest pain, # 100 tablet, 3 Refills, Maintenance, 11/07/17 7:56:13, Tablet Start Date: 11/07/17 Status: Ordered omeprazole 40 mg oral enteric coated capsule See Instructions, TAKE 1 CAPSULE BY MOUTH 2 TIMES A DAY, # 180 capsule, 1 Refills, Soft Stop, 08/30/19 6:58:10 EST Start Date: 08/30/19 Status: Ordered One Touch Delica Lancets See [...] EST, Compound Start Date: 11/04/18 Status: Ordered physical therapy physical therapy, See Instructions, # 12 units, Refills 0, Tot. Refills 0, Maintenance, PT eval andtreat left costal pain from blunt trauma and lumbosaccfral strain/sprain, 05/05/19 8:48:17 EDT, Compound Start Date: 05/05/19 Status: Ordered potassium chloride 10 mEq oral tablet, extended release 1 tablet = 10 mEq, By Mouth, Daily, # 30 tablet, 11 Refills, Maintenance, 07/09/19 11:46:25 EDT Start Date: 07/09/19 Status: Ordered ProAir HFA 90 mcg/inh inhalation aerosol with adapter 2 puffs, Inhalation, Every 4 hours, PRN for wheezing, # 8.5 Gm, 0 Refills, Maintenance, Aerosol Start Date: 10/23/12 Status: Ordered rOPINIRole 1 mg oral tablet 2 tablet = 2 mg, By Mouth, Daily at bedtime, # 180 tablet, 1 Refills, Maintenance, 06/25/20 12:28:00 EDT, Tablet, [facility]/pharmacy #1157, 167.6, cm, 03/27/20 8:14:00 EDT, Height, 90.7, kg, 09/08/19 8:17:00 EST, Dry Weight Start Date: 06/25/20 Stop Date: 12/22/20 Status: Ordered sertraline 100 mg oral tablet 1 tablet = 100 mg, By Mouth, Daily, # 30 tablet, 11 Refills, Maintenance, 02/05/19 8:08:58 EDT, Tablet Start Date: 02/05/19 Stop Date: 01/31/20 Status: Ordered tamsulosin 0.4 mg oral capsule 0.4 mg, 1, capsule, By Mouth, Daily, 30 minutes after the same meal, # 30 capsule, Refills 5, Tot. Refills 5, Maintenance, 04/08/19 14:06:58 EDT, Route to Pharmacy Electronically, [id number], [facility] Start Date: 04/08/19 Status: Ordered Problem List Condition Effective Dates Status Health Status Inform ant Anxiety(Confirmed) Active Dilated aortic root/ Oct 2017(Confirmed) Active Atrial fibrillation(Confirmed) Active Atypical angina(Confirmed) Active CVA (cerebral vascular accident)(Confirmed) Active Chronic kidney disease stage 3(Confirmed) Active Arteriosclerotic heart disea se (ASHD)(Confirmed) Active Essential hypertension(Confirmed) Active Esophageal reflux(Confirmed) Active History of COPD(Confirmed) Active Hyperlipidemia(Confirmed) Active Nephrolithiasis(Confirmed) Active Obesity(Confirmed) Active RICKIE (obstructive sleep apnea)(Confirmed) Active CAD S/P percutaneous coronar y angioplasty(Confirmed) Active 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
--- OUTSIDE RECORDS SUMMARY | 2023-08-20 10:40 | XMS_ITS | Continuity of Care Document ---
Author Name Unknown Organization [facility] Address [address] [place] [address]- Care Team Providers Care Fitter Placer Name Role Phone Brennan Tyson MD Primary Care Physician [phone] 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) - 03/27/20 Atrial fibrillation(Discharge Diagnosis) - 03/27/20 Essential hypertension(Discharge Diagnosis) - 03/27/20 Attending Physician: Brennan Tyson MD Allergies, Adverse [...] tetanus/diphtheria/pertussis, acel(Tdap) 10/20/13 Given 1Result Comment: [08/12/2018] [facility] [id number] 2Result Comment: [08/12/2018] [facility] [id number] Medications Advair Diskus 500 mcg-50 mcg inhalation powder 1 puffs, Inhalation, 2 times a day, # 180 each, 0 Refills, Maintenance, Powder Start Date: 10/23/12 Status: Ordered amLODIPine 10 mg oral tablet 10 mg, 1, tablet, By Mouth, Daily, # 90 tablet, Refills 3, Tot. Refills 3, Maintenance, 12/30/18 13:42:36 EDT, Route to Pharmacy Electronically, [id number], [facility]/pharmacy #1157 Start Date: 12/30/18 Stop Date: 12/25/19 Status: Ordered aspirin 81 mg oral delayed [...] 06/17/19 6:49:21 EDT, Route to Pharmacy Electronically, [id number], [facility]/pharmacy #1157 Start Date: 06/17/19 Status: Ordered Centrum [...] tablet, 3 Refills, Maintenance, 12/01/19 13:16:00 EST, [facility], 167.6, cm, 11/24/19 9:18:00 EST, Height, 90.7, [...] tablet, Refills 11, Tot. Refills 11, Maintenance, 10/07/18 8:59:29 EST, Route to Pharmacy Electronically, [id number], [facility]/pharmacy #1157 Start Date: 10/07/18 Status: Ordered LORazepam 0.5 mg oral tablet 1 tablet = 0.5 mg, By Mouth, Daily, PRN as needed for anxiety, for 30 days, # 30 tablet, 3 Refills,Acute 05/10/20 10:19:00 EDT, 01/11/20 10:19:00 EDT, Tablet, [facility]/pharmacy #1157, 167.6, cm, 209:18:00 EST, Height, 90.7, kg, 09/08/19 8:17:00 EST... Start Date: 01/11/20 Stop Date: 05/10/20 Status: Ordered nitroglycerin 0.4 mg sublingual tablet [...] bedtime, # 180 tablet, 1 Refills, Maintenance, 12/28/19 12:28:00 EDT, Tablet, [facility]/pharmacy #1157, 167.6, cm, 11/24/19 9:18:00 EST, Height, 90.7, kg, 09/08/19 8:17:00 EST, Dry Weight Start Date: 12/28/19 Stop Date: 06/25/20 Status: Ordered sertraline 100 mg oral tablet [...] 04/08/19 14:06:58 EDT, Route to Pharmacy Electronically, [id number], [facility] Start Date: 04/08/19 Status: Ordered [...] Effective Dates Health Status Clinical Service Informant Type 2 diabetes mellitus with renal manifestations Discharge Diagnosis 03/27/20 Atrial fibrillation Discharge Diagnosis 03/27/20 Essential hypertension Discharge Diagnosis 03/27/20 Vital Signs Most recent to oldest [Reference Range]: 1 2 Height 167.6 cm (03/27/20 8:14 AM) 167.6 cm (03/27/20 7:57 AM) Weight 95.7 kg (03/27/20 7:57 AM) Oxygen Saturation [94-100 %] 97 % (03/27/20 7:57 AM) Pulse Rate [55-90 bpm] 51 bpm *L* (03/27/20 7:57 AM) Body Mass Index [18.5-24.99] 34.07 *>HHI* (03/27/20 7:57 AM) Blood Pressure [90-138/55-84 mm Hg] 136/ 76mm Hg (03/27/20 8:14 AM) 142/82mm Hg *H* (03/27/20 7:57 AM) Mode of Delivery (Oxygen) Room air (03/27/20 7:57 AM) Blood pressure sites Arm, left (03/27/20 8:14 AM) Arm, right (03/27/20 7:57 AM) Social History Social History Type Response Smoking Status Former smoker; Type: Cigarettes; Other: quit 2006; entered on: 09/19/17 Sex
--- OUTSIDE RECORDS SUMMARY | 2023-08-20 10:40 | XMS_ITS | Continuity of Care Document ---
Author Name Unknown Organization [facility] Address Unknown Care Team Providers Care Bar Captain Name Role Phone Brennan Tyson MD Primary Care Physician [place] [facility] Date(s): 04/11/22 - 05/11/22 [facility] Allergies, Adverse Reactions, Alerts Substance Reaction Severity [...] 13-valent vaccine 05/07/16 Given Zoster Vaccine Live 10/8/15 Given tetanus/diphtheria/pertussis, acel(Tdap) 10/20/13 Given 1Result Comment: [08/12/2018] [facility] [id number] 2Result Comment: [08/12/2018] [facility] [id number] Medications Advair Diskus 500 mcg-50 mcg inhalation powder 1 puffs, Inhalation, 2 times a day, # 180 each, 0 Refills, Maintenance, Powder Start Date: 10/23/12 Status: Ordered amLODIPine 10 mg oral tablet 10 mg, 1, tablet, By Mouth, Daily, # 90 tablet, Refills 3, Tot. Refills 3, Maintenance, 08/26/21 13:26:00 EST, Route to Pharmacy Electronically, [facility]/pharmacy #1157, 167.6, cm, 05/07/21 16:16:00 EDT, Height, 90.7, kg, 09/08/19 8:17:00 EST, Dry Weight Start Date: 08/26/21 Status: Ordered aspirin 81 mg oral delayed release tablet 81 mg, 1, tablet, By Mouth, Daily, # 30 tablet, Refills 0, Maintenance, 12/27/18 10:46:04 EDT Start Date: 12/27/18 Status: Ordered atorvastatin 40 mg oral tablet 1 tablet, By Mouth, Daily, # 90 tablet, 1 Refills, [facility] 345[facility], 167.6, cm, 11/21/21 9:53:00 EST, Height Start Date: 02/05/22 Status: Ordered carvedilol 25 mg oral tablet 1, tablet, By Mouth, 2 times a day, # 180 tablet, Refills 3, Route to Pharmacy Electronically, [facility] 486[facility], 167.6, cm, 11/21/21 9:53:00 EST, Height Start [...] capsule = 30 mg, By Mouth, Daily, this replaces sertraline, # 30 capsule, 11 Refills, Maintenance, 04/01/22 9:18:00 EDT, [facility]/pharmacy #1157, Partial fill upon patient request if the prescription isfor a schedule II opioid drug., 167.6, cm, 04/01/22... Start Date: 04/01/22 Status: Ordered Eliquis 5 mg oral tablet 1 tablet, By Mouth, 2 times a day, # 180 tablet, 5 Refills, [facility]46, 167.6, cm, 11/21/21 9:53:00 EST, Height Start Date: 02/05/22 Status: Ordered fenofibrate 160 mg oral tablet 0.5 tablet, By Mouth, Daily, # 45 tablet, 3 Refills, Maintenance, 05/28/21 7:19:00 EDT, [facility]/pharmacy #1157, 167.6, cm, 05/07/21 16:16:00 EDT, Height, 90.7, kg, 09/08/19 8:17:00 EST, Dry Weight Start Date: 05/28/21 Status: Ordered furosemide 20 mg oral tablet [...] tablet, Refills 1, Route to Pharmacy Electronically, [facility] 0[facility]43, 167.6, cm, 11/21/21 9:53:00 EST, Height Start Date: 02/05/22 Status: Ordered montelukast 10 mg oral tablet [...] Stop 04/04/23 15:00:00 EDT, 04/09/22 15:00:00 EDT, [facility]/pharmacy #1157, 167.6, cm, 04/01/22 8:47:00 EDT, Height [...] Start Date: 11/04/18 Status: Ordered Potassium Chloride (Lny-Xryo-Zau 10) 10 mEq oral tablet, extended release 1 tablet, By Mouth, Daily, # 90 tablet, 3 Refills, [facility] 37805, 167.6, cm, 06/06/21 9:25:00 EDT, Height, 90.7, [...] tablet, 1 Refills, Maintenance, 08/29/21 11:45:00 EST, [facility]/pharmacy #1157, 167.6, cm, 06/06/21 9:25:00 EDT, Height, 90.7, kg, 09/08/19 8:17:00 EST, Dry Weight Start Date: 08/29/21 Status: Ordered rOPINIRole 1 mg oral tablet 2 tablet = 2 mg, By Mouth, Daily at bedtime, # 180 tablet, 1 Refills, Maintenance, 12/22/20 12:40:00 EST, Tablet, [facility]/pharmacy #1157, 167.6, cm, 11/28/20 10:41:00 EST, Height, 90.7, kg, 09/08/19 8:17:00 EST, Dry Weight Start Date: 12/22/20 Stop Date: 06/20/21 Status: Ordered sertraline 100 mg oral tablet 1.5 tablet = 150 mg, By Mouth, Daily, dose increase, # 135 tablet, 3 Refills, Maintenance, 228:32:00 EDT, Tablet, [facility]/pharmacy #1157, dose increase, 167.6, cm, 02/22/22 7:57:00 EDT, Height Start Date: 02/22/22 Stop Date: 02/17/23 Status: Ordered tamsulosin 0.4 mg oral capsule See Instructions, TAKE 1 CAPSULE BY MOUTH DAILY 30 MINUTES AFTER THE SAME MEAL, # 90 capsule, Refills 1, Instructions Replace Required Details, Route to Pharmacy Electronically, [facility], 167.6, cm, 02/22/22 7:57:00 EDT, Height Start Date: 03/10/22 Status: Ordered Problem List Condition Effective Dates [...] Active Major depression in partial remission(Confirmed) Active Obese class I(Confirmed) Active Obesity(Confirmed) Active RICKIE (obstructive sleep apnea)(Confirmed) Active CAD S/P percutaneous coronar y angioplasty(Confirmed) Active 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
--- OUTSIDE RECORDS SUMMARY | 2023-08-20 10:40 | XMS_ITS | Continuity of Care Document ---
Author Name Unknown Organization [facility] Address [address] [place] [address]- Care Team Providers Care Delivery Recruiter Name Role Phone Brennan Tyson MD Primary Care Physician [facility]counter [facility] Date(s): 01/21/23 - 02/20/23 [facility] [address] [place] [address]- Allergies, Adverse Reactions, Alerts Substance Reaction Severity [...] inactivated 10/03/20 Recorded Influenza Virus Vaccine (oldterm) 10/28/20 Recorde d pneumococcal 23-valent vaccine 2 08/12/18 Given pneumococcal 23-valent vaccine 07/22/11 Given pneumococcal 13-valent vaccine 05/07/16 Given Zoster Vaccine Live 07/27/15 Given tetanus/diphtheria/pertussis, acel(Tdap) 10/20/13 Given 1Result Comment: [08/12/2018] [facility] [id number] 2Result Comment: [08/12/2018] [facility] [id number] Medications Advair Diskus 500 mcg-50 mcg inhalation powder 1 puffs, Inhalation, 2 times a day, 0 Refills, Maintenance, 10/23/12 12:03:02 EST, Powder Start Date: 10/23/12 Status: Ordered Albuterol (Eqv-ProAir HFA) 2 puffs, Inhalation, 3 times a day, # 8.5 Gm, 6 Refills, Maintenance, 02/10/23 15:29:00 EDT, Partial fill upon patient request if the prescription is for a schedule II opioid drug. Start Date: 02/10/23 Status: Ordered atorvastatin 40 mg oral tablet 1 tablet, By Mouth, Daily, # 90 tablet, 1 Refills, Maintenance, 07/08/22 0:13:00 EDT, [facility], 167.6, cm, 06/18/22 14:40:00 EDT, Height Start Date: 07/08/22 Status: Ordered bumetanide 2 mg oral tablet 1 tablet = 2 mg, By Mouth, Daily, # 14 tablet, 0 Refills, Maintenance, 02/14/23 9:45:00 EDT, [facility]/pharmacy #1157, Partial fill upon patient request if the prescription is for a schedule II opioid drug., 165, cm, 02/10/23 15:06:00 EDT, Height, 85, kg, 0... Start Date: 02/14/23 Stop Date: 02/28/23 Status: Ordered carvedilol 25 mg oral tablet 1, tablet, By Mouth, 2 times a day, # 180 tablet, Refills 3, Route to Pharmacy Electronically, [facility] 61931, 167.6, cm, 11/21/21 9:53:00 EST, Height Start Date: 02/05/22 Status: Ordered cholecalciferol 2000 intl units oral tablet By Mouth, Daily, 0 Refills, Maintenance, 09/28/22 10:54:00 EST, Tablet, Partial fill upon patient request if the prescription is for a schedule II opioid drug. Start Date: 09/28/22 Status: Ordered duloxetine 60 mg oral enteric coated capsule 1 capsule = 60 mg, By Mouth, Daily, # 30 capsule, 0 Refills, Maintenance, 12/27/22 10:50:00 EST, [facility], Partial fill upon patient request if the prescription is for a schedule II opioid drug. Start Date: 12/27/22 Status: Ordered fenofibrate 160 mg oral tablet 0.5 tablet, By Mouth, Daily, # 45 tablet, 4 Refills, [facility] 69284, 167.6, cm, 04/01/22 8:47:00 EDT, Height Start Date: 06/07/22 Status: Ordered fluticasone 50 mcg/inh nasal spray 2 sprays, Nares, Both, Daily, Maintenance, 08/18/22 17:16:00 EDT, [facility], Partial fill upon patient request if the prescription is for a schedule II opioid drug. Start Date: 08/18/22 Status: Ordered heparin 5000 u/ml injectable solution = 5,000 units, Subcutaneous Injection, 3 times a day, # 90 mL, 5 Refills, Maintenance, 10/17/22 11:51:00 EST, [facility], Partial fill upon patient request [...] Stop 04/04/23 15:00:00 EDT, 04/09/22 15:00:00 EDT, [facility]/pharmacy #1157, 167.6, cm, 04/01/22 8:47:00 EDT, [...] kg... Start Date: 10/18/22 Status: Ordered Pen Cornucopia, 31 G x 5 mm BD Ultra [...] tablet, 1 Refills, Maintenance, 10/28/22 8:47:00EST, Tablet, [facility]/pharmacy #1157, 165, cm, 10/18/22 16:17:00 EST, Height, 103, kg, 09/19/22 22:30:00EST, Dry Weight Start Date: 10/28/22 Stop Date: 04/26/23 Status: Ordered tamsulosin 0.4 mg oral capsule See Instructions, TAKE 1 CAPSULE BY MOUTH DAILY 30 MINUTES AFTER THE SAME MEAL, # 90 capsule, Refills 1, Maintenance, 11/08/22 11:58:00 EST, Instructions Replace Required Details, Route to Pharmacy Electronically, [facility] 87[facility], 165, cm, 10/18/22 16... Start Date: 11/08/22 [...] Team Personnel Name: Nayeli Fernandez RN Position: [facility] RN Member Role: Primary Care Nurse Name: Erin Pendleton RN Position: [facility] RN Member Role: Primary Care Nurse Name: Luciano Hernandez MD Position: [facility] Renal MD Member Role: Lifetime Consulting Physician Address: Address: [address] [place] [address] [address] [facility] [place] [address]- [place] Name: Brennan Tyson MD Position: [facility] Primary Care Physician Member Role: PCP Address: Address: [address] [place] [address]- Name: Roxy Akers RN Position: S RN Member Role: Primary Care Nurse Name: Flores Freeman RN Position: S RN Member Role: Primary Care Nurse Name: Fabiana Hairston RN Position: S RN Member Role: Primary Care Nurse Care Team Related Persons Name: PRABHAKAR JACINTO Address: home [address] [place] [address] Name: KANG JACINTO Name: JOSE SHAW Address: [place] [address] Name: ANUM DUBOSE Address: home [address] [place] [address]
--- OUTSIDE RECORDS SUMMARY | 2023-08-20 10:41 | XMS_ITS | Continuity of Care Document ---
Author Name Unknown Organization [facility] ter Address [address] [place] [address]- Care Team Providers Care Enrichment Specialist Name Role Phone Brennan Tyson MD Primary Care Physician [facility] Date[facility]s): 04/03/20 - 06/14/[address] [address]- [facility] Attending Physician: Brennan Tyson MD Admitting Physician: Brennan Tyson MD Referring Physician: Brennan Tyson MD Allergies, Adverse Reactions, [...] tetanus/diphtheria/pertussis, acel(Tdap) 10/20/13 Given 1Result Comment: [08/12/2018] [facility] [id number] 2Result Comment: [08/12/2018] [facility] 3617-1159-42 Medications Advair Diskus 500 mcg-50 mcg inhalation powder 1 puffs, Inhalation, 2 times a day, # 180 each, 0 Refills, Maintenance, Powder Start Date: 10/23/12 Status: Ordered amLODIPine 10 mg oral tablet 10 mg, 1, tablet, By Mouth, Daily, # 90 tablet, Refills 3, Tot. Refills 3, Maintenance, 06/02/20 13:26:00 EDT, Route to Pharmacy Electronically, [facility]/pharmacy #1157, 167.6, cm, 03/27/20 8:14:00 EDT, Height, [...] 06/17/19 6:49:21 EDT, Route to Pharmacy Electronically, [id number], [facility]/pharmacy #1157 Start Date: 06/17/19 Status: Ordered Centrum [...] Refills, Maintenance, 12/01/19 13:16:00 EST, [facility], 167.6, cm, 11/24/19 9:18:00 EST, Height, 90.7, [...] 06/02/20 13:26:00 EDT, Route to Pharmacy Electronically, [facility]/pharmacy #1157, 167.6, cm, 03/27/20 8:14:00 EDT,Height, 90.7, [...] 1 Refills, Maintenance, 12/28/19 12:28:00 EDT, Tablet, [facility], 167.6, cm, 11/24/19 9:18:00 EST, Height, [...] 04/08/19 14:06:58 EDT, Route to Pharmacy Electronically, [id number], [facility]/pharmacy #1157 Start Date: 04/08/19 Status: Ordered Problem [...]
--- OUTSIDE RECORDS SUMMARY | 2023-08-20 10:41 | XMS_ITS | Continuity of Care Document ---
Author Name Unknown Organization [facility] Address [address] [place] [address]- Care Team Providers Care Licensed Loan Officer Name Role Phone Brennan Tyson MD Primary Care Physician [facility] Date[facility]s): 06/02/20 - 07/02/20 [facility] [address] [place] [address]- [facility] Allergies, Adverse Reactions, Alerts Substance Reaction [...] tetanus/diphtheria/pertussis, acel(Tdap) 10/20/13 Given 1Result Comment: [08/12/2018] [facility] [id number] 2Result Comment: [08/12/2018] [facility] 4651-9459-20 Medications Advair Diskus 500 mcg-50 mcg inhalation powder 1 puffs, Inhalation, 2 times a day, # 180 each, 0 Refills, Maintenance, Powder Start Date: 10/23/12 Status: Ordered amLODIPine 10 mg oral tablet 10 mg, 1, tablet, By Mouth, Daily, # 90 tablet, Refills 3, Tot. Refills 3, Maintenance, 06/02/20 13:26:00 EDT, Route to Pharmacy Electronically, [facility]/pharmacy #1157, 167.6, cm, 06/08/20 8:14:00 EDT, Height, [...] 06/17/19 6:49:21 EDT, Route to Pharmacy Electronically, [id number], [facility]/pharmacy #1157 Start Date: 06/17/19 Status: Ordered Centrum [...] tablet, 3 Refills, Maintenance, 12/01/19 13:16:00 EST, [facility] ST[facility] 26455, 167.6, cm, 11/24/19 9:18:00 EST, Height, 90.7, [...] 06/02/20 13:26:00 EDT, Route to Pharmacy Electronically, [facility]/pharmacy #1157, 167.6, cm, 03/27/20 8:14:00 EDT,Height, 90.7, [...] 1 Refills, Maintenance, 06/25/20 12:28:00 EDT, Tablet, [facility]/pharmacy #1157, 167.6, cm, 03/27/20 8:14:00 EDT, Height, [...] 04/08/19 14:06:58 EDT, Route to Pharmacy Electronically, [id number], [facility] Start Date: 04/08/19 Status: Ordered [...]
--- OUTSIDE RECORDS SUMMARY | 2023-08-20 10:41 | XMS_ITS | Continuity of Care Document ---
Author Name Unknown Organization [facility] Address [address] [place] [address]- Care Team Providers Care Cabinetmaker Maintenance Name Role Phone Brennan Tyson MD Primary Care Physician [facility] Date[facility]s): 11/25/22 - 12/25/22 [facility] [address] [place] [address]- Allergies, Adverse Reactions, Alerts Substance Reaction Severity [...] 10/20/13 Given 1Result Comment: [08/12/2018] [facility] [id number] 2Result Comment: [08/12/2018] [facility] 8718-0739-05 Medications Advair Diskus 500 mcg-50 mcg inhalation [...] tablet, 1 Refills, Maintenance, 07/08/22 0:13:00 EDT, [facility] ST[facility] 55173, 167.6, cm, 06/18/22 14:40:00 EDT, Height Start Date: 07/08/22 Status: Ordered buPROPion 150 mg/24 hours (XL) oral tablet, extended release 1 tablet = 150 mg, By Mouth, Every 24 hours, # 14 tablet, 0 Refills, Maintenance, 10/18/22 17:03:00EST, [facility]/pharmacy #1157, Partial fill upon patient request [...] Refills, Maintenance, 10/20/22 11:47:00 EST, ER Tablet, [facility]/pharmacy #1157, Partial fill upon patient request if the prescription is for a... Start Date: 10/20/22 Status: Ordered carvedilol 25 mg oral tablet 1, tablet, By Mouth, 2 times a day, # 180 tablet, Refills 3, Route to Pharmacy Electronically, [facility], 167.6, cm, 11/21/21 9:53:00 EST, Height Start [...] Mouth, Daily, # 45 tablet, 4 Refills, [facility] 80845, 167.6, cm, 04/01/22 8:47:00 EDT, Height Start Date: 06/07/22 Status: Ordered fluticasone 50 mcg/inh nasal spray 2 sprays, Nares, Both, Daily, Maintenance, 08/18/22 17:16:00 EDT, [facility], Partial fill upon patient request if the [...] mL, 5 Refills, Maintenance, 10/17/22 11:51:00 EST, [facility], Partial fill upon patient request [...] Stop 04/04/23 15:00:00 EDT, 04/09/22 15:00:00 EDT, [facility]/pharmacy #1157, 167.6, cm, 04/01/22 8:47:00 EDT, Height [...] kg... Start Date: 10/18/22 Status: Ordered Pen [place], 31 G x 5 mm BD Ultra [...] tablet, 1 Refills, Maintenance, 10/28/22 8:47:00EST, Tablet, [facility]/pharmacy #1157, 165, cm, 10/18/22 16:17:00 EST, Height, 103, kg, 09/19/22 22:30:00EST, Dry Weight Start Date: 10/28/22 Stop Date: 04/26/23 Status: Ordered tamsulosin 0.4 mg oral capsule See Instructions, TAKE 1 CAPSULE BY MOUTH DAILY 30 MINUTES AFTER THE SAME MEAL, # 90 capsule, Refills 1, Maintenance, 11/08/22 11:58:00 EST, Instructions Replace Required Details, Route to Pharmacy Electronically, [facility], 165, cm, 10/18/22 16... Start Date: 11/08/22 [...] Care Nurse Name: Luciano Hernandez MD Position: [facility] Renal MD Member Role: Lifetime Consulting Physician Address: Address: [address] [facility] [place] [address]- [place] Name: Brennan Tyson MD Position: [facility] Primary Care Physician Member Role: PCP Address: Address: [address] [place] [address]- Name: Roxy Akers RN Position: S RN Member Role: Primary Care Nurse Name: Flores Freeman RN Position: S RN Member Role: Primary Care Nurse Name: Fabiana Hairston RN Position: S RN Member Role: Primary Care Nurse Care Team Related Persons Name: PRABHAKAR JACINTO Address: home [address] [place] [address] Name: KANG JACINTO Name: JOSE SHAW Address: [place] [address] Name: ANUM DUBOSE Address: home [address] [place] [address]
--- OUTSIDE RECORDS SUMMARY | 2023-08-20 10:41 | XMS_ITS | Continuity of Care Document ---
Author Name Unknown Organization [facility] Adult Address [address] [place] [address]- Care Team Providers Care Marine Fuel Dock Attendant Name Role Phone Brennan Tyson MD Primary Care Physician [facility]counter [facility] Date(s): 11/28/22 - 12/28/22 [facility] [address] [place] [address]- Allergies, Adverse Reactions, Alerts Substance Reaction Severity [...] tetanus/diphtheria/pertussis, acel(Tdap) 10/20/13 Given 1Result Comment: [08/12/2018] [facility] [id number] 2Result Comment: [08/12/2018] [facility] [id number] Medications Advair Diskus 500 mcg-50 mcg inhalation powder 1 puffs, Inhalation, 2 times a day, 0 Refills, Maintenance, 10/23/12 12:03:02 EST, Powder Start Date: 10/23/12 Status: Ordered atorvastatin 40 mg oral tablet 1 tablet, By Mouth, Daily, # 90 tablet, 1 Refills, Maintenance, 07/08/22 0:13:00 EDT, [facility], 167.6, cm, 06/18/22 14:40:00 EDT, Height Start Date: 07/08/22 Status: Ordered carvedilol 25 mg oral tablet 1, tablet, By Mouth, 2 times a day, # 180 tablet, Refills 3, Route to Pharmacy Electronically, [facility], 167.6, cm, 11/21/21 9:53:00 EST, Height Start [...] # 45 tablet, 4 Refills, [facility], 167.6, cm, 04/01/22 8:47:00 EDT, Height Start Date: 06/07/22 Status: Ordered fluticasone 50 mcg/inh nasal spray 2 sprays, Nares, Both, Daily, Maintenance, 08/18/22 17:16:00 EDT, [place], Partial fill upon patient request if the [...] mL, 5 Refills, Maintenance, 10/17/22 11:51:00 EST, [facility], Partial fill upon patient [...] Stop 04/04/23 15:00:00 EDT, 04/09/22 15:00:00 EDT, [facility]/pharmacy #1157, 167.6, cm, 04/01/22 8:47:00 EDT, [...] kg... Start Date: 10/18/22 Status: Ordered Pen [place], 31 G x 5 mm BD Ultra [...] tablet, 1 Refills, Maintenance, 10/28/22 8:47:00EST, Tablet, [facility]/pharmacy #1157, 165, cm, 10/18/22 16:17:00 EST, Height, 103, kg, 09/19/22 22:30:00EST, Dry Weight Start Date: 10/28/22 Stop Date: 04/26/23 Status: Ordered tamsulosin 0.4 mg oral capsule See Instructions, TAKE 1 CAPSULE BY MOUTH DAILY 30 MINUTES AFTER THE SAME MEAL, # 90 capsule, Refills 1, Maintenance, 11/08/22 11:58:00 EST, Instructions Replace Required Details, Route to Pharmacy Electronically, [facility] 6[facility], 165, cm, 10/18/22 16... Start Date: 11/08/22 [...] Team Personnel Name: Nayeli Fernandez RN Position: [facility] RN Member Role: Primary Care Nurse Name: Erin Pendleton RN Position: [facility] RN Member Role: Primary Care Nurse Name: Luciano Hernandez MD Position: [facility] Renal MD Member Role: Lifetime Consulting Physician Address: Address: [address] [place] [address] [address] [facility] [place] [address]- Name: Brennan Tyson MD Position: [facility] Primary Care Physician Member Role: PCP Address: Address: [address] [place] [address]- Name: Roxy Akers RN Position: S RN Member Role: Primary Care Nurse Name: Flores Freeman RN Position: S RN Member Role: Primary Care Nurse Name: Fabiana Hairston RN Position: [facility] RN Member Role: Primary Care Nurse Care Team Related Persons Name: ORVILLE, PRABHAKAR Address: home [address] [place] [address] Name: KANG JACINTO Name: JOSE SHAW Address: [place] [address] Name: ANUM DUBOSE Address: home [address] [place] [address]
--- OUTSIDE RECORDS SUMMARY | 2023-08-20 10:41 | XMS_ITS | Continuity of Care Document ---
Author Name Unknown Organization [facility] Adult Address [address] [place] [address]- Care Team Providers Care Software Administrator Name Role Phone Brennan Tyson MD Primary Care Physician [facility]counter [facility] Date[facility]s): 09/10/22 - 10/10/22 [facility] [address] [place] [address]- Allergies, Adverse Reactions, Alerts Substance Reaction Severity [...] Given 1Result Comment: [08/12/2018] [facility] [id number] 2Result Comment: [08/12/2018] [facility] [id number] Medications Advair Diskus 500 mcg-50 mcg inhalation [...] tablet, 1 Refills, Maintenance, 07/08/22 0:13:00 EDT, [facility], 167.6, cm, 06/18/22 14:40:00 EDT, Height Start Date: 07/08/22 Status: Ordered carvedilol 25 mg oral tablet 1, tablet, By Mouth, 2 times a day, # 180 tablet, Refills 3, Route to Pharmacy Electronically, [facility], 167.6, cm, 11/21/21 9:53:00 EST, Height Start [...] Mouth, Daily, # 45 tablet, 4 Refills, [facility], 167.6, cm, 04/01/22 8:47:00 EDT, Height Start Date: 06/07/22 Status: Ordered fluticasone 50 mcg/inh nasal spray 2 sprays, Nares, Both, Daily, Maintenance, 08/18/22 17:16:00 EDT, [place], Partial fill upon patient request if the prescription is for a schedule II opioid drug. Start Date: 08/18/22 Status: Ordered folic acid 1 mg oral tablet 1 mg, 1, tablet, By Mouth, Daily, Refills 0, Maintenance, 09/28/22 10:54:00 EST, Partial fill upon patient request if the prescription is for a schedule II opioid drug. Start Date: 09/28/22 Status: Ordered Heparin Inj 1 mL = 5,000 units, Subcutaneous Injection, 3 times a day, 0 Refills, Maintenance, 09/28/22 10:54:00 EST, In[place], Partial fill upon patient request if the prescription is for a schedule II opioid drug. Start Date: 09/28/22 Status: Ordered Incruse Ellipta 62.5 mcg/inh inhalation powder 1 each, Inhalation, Every 24 hours, doses should be taken at least 24 hours apart, 0 Refills, Maintenance, 12/26/18 10:40:28 EST, Powder Start Date: 12/26/18 Status: Ordered isosorbide mononitrate 30 mg oral tablet, extended release 1 tablet = 30 mg, By Mouth, Daily in AM, Maintenance, 08/18/22 17:21:00 EDT, ER Tablet, Partial fill upon patient request if the prescription is for a schedule II opioid drug. Start Date: 08/18/22 Status: Ordered LORazepam 0.5 mg oral tablet 1 tablet = 0.5 mg, By Mouth, Daily, PRN as needed for anxiety, for 30 days, # 30 tablet, 0 Refills,Acute 11/09/22 16:02:00 EST, 10/10/22 16:02:00 EST, Tablet, [facility]/pharmacy #1157, 165, cm, 09/25/22 13:10:00 EST, Height, 103, kg, 09/19/22 22:30:00 EST,... Start Date: 10/10/22 Stop Date: 11/09/22 Status: Ordered melatonin 3 mg oral tablet [...] Stop 04/04/23 15:00:00 EDT, 04/09/22 15:00:00 EDT, [facility]/pharmacy #1157, 167.6, cm, 04/01/22 8:47:00 EDT, Height [...] EST, Compound Start Date: 11/04/18 Status: Ordered Rollator Walker Rollator Walker, See Instructions, # 1 each, Refills 0, Tot. Refills 0, Maintenance, use daily for all ADL's, 09/06/22 11:47:00 EST, Supply Start Date: 09/06/22 Status: Ordered rOPINIRole 1 mg oral tablet 2 tablet = 2 mg, By Mouth, Daily at bedtime, # 180 tablet, 1 Refills, Maintenance, 12/22/20 12:40:00 EST, Tablet, [facility]/pharmacy #1157, 167.6, cm, 11/28/20 10:41:00 EST, Height, 90.7, kg, 09/08/19 8:17:00 EST, Dry Weight Start Date: 12/22/20 Stop Date: 06/20/21 Status: Ordered tamsulosin 0.4 mg oral capsule See Instructions, TAKE 1 CAPSULE BY MOUTH DAILY 30 MINUTES AFTER THE SAME MEAL, # 90 capsule, Refills 1, Instructions Replace Required Details, Route to Pharmacy Electronically, [facility], 167.6, cm, 02/22/22 7:57:00 EDT, Height Start Date: 03/10/22 Status: Ordered traZODone 50 mg oral tablet [...] in partial remission Confirmed Active Obese class II Confirmed Active Obesity Confirmed Active RICKIE (obstructive [...] RN Member Role: Primary Care Nurse Name: Ruby Hernández RN Position: S RN Member Role: Primary Care Nurse Name: Luciano Hernandez MD Position: [facility] Renal MD Member Role: Lifetime Consulting Physician Address: Address: [address] [place] [address] [address] [facility], [place] [address]- [place] Name: Brennan Tyson MD Position: [facility] Primary Care Physician Member Role: PCP Address: Address: [address] [place] [address]- Name: Roxy Akers RN Position: S RN Member Role: Primary Care Nurse Name: Flores Freeman RN Position: S RN Member Role: Primary Care Nurse Name: Fabiana Hairston RN Position: S RN Member Role: Primary Care Nurse Care Team Related Persons Name: PRABHAKAR JACINTO Address: home [address] [place] [address] Name: RUBY JACINTO Name: JOSE SHAW Address: [place] [address] Name: ANUM DUBOSE Address: home [address] [place] [id number]
--- OUTSIDE RECORDS SUMMARY | 2023-08-20 10:41 | XMS_ITS | Continuity of Care Document ---
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) - 02/07/21 Essential hypertension(Discharge Diagnosis) - 02/07/21 Attending Physician: Brennan Tyson MD Allergies, Adverse [...] tetanus/diphtheria/pertussis, acel(Tdap) 10/20/13 Given 1Result Comment: [08/12/2018] [facility] [id number] 2Result Comment: [08/12/2018] [facility] [id number] Medications Advair Diskus 500 mcg-50 mcg inhalation powder 1 puffs, Inhalation, 2 times a day, # 180 each, 0 Refills, Maintenance, Powder Start Date: 10/23/12 Status: Ordered amLODIPine 10 mg oral tablet 10 mg, 1, tablet, By Mouth, Daily, # 90 tablet, Refills 3, Tot. Refills 3, Maintenance, 06/02/20 13:26:00 EDT, Route to Pharmacy Electronically, [facility]/pharmacy #1157, 167.6, cm, 03/27/20 8:14:00 EDT, [...] 06/17/19 6:49:21 EDT, Route to Pharmacy Electronically, [id number], [facility]/pharmacy #1157 Start Date: 06/17/19 Status: Ordered [...] Refills, Maintenance, 12/25/20 9:10:00 EST, [facility], 167.6, cm, 11/28/20 10:41:00 EST, Height, 90.7, [...] 06/02/20 13:26:00 EDT, Route to Pharmacy Electronically, [facility]/pharmacy #1157, 167.6, cm, 03/27/20 8:14:00 EDT,Height, 90.7, kg, 09/08/19 8:17:00 EST, Dry Weight Start Date: 06/02/20 Status: Ordered LORazepam 0.5 mg oral tablet 1 tablet = 0.5 mg, By Mouth, Daily, PRN as needed for anxiety, for 30 days, # 30 tablet, 2 Refills,Acute 02/26/21 11:08:00 EDT, 11/28/20 11:08:00 EST, Tablet, [facility]/pharmacy #1157, 167.6, cm, 11/28/2109:41:00 EST, Height, 90.7, [...] capsule, 0 Refills, Maintenance, 02/01/21 7:55:00 EDT, [facility], 167.6, cm, 01/29/21 10:15:00 EDT, Height, 90.7, [...] 1 Refills, Maintenance, 12/22/20 12:40:00 EST, Tablet, [facility]/pharmacy #1157, 167.6, cm, 11/28/20 10:41:00 EST, Height, 90.7, kg, 09/08/19 8:17:00 EST, Dry Weight Start Date: 12/22/20 Stop Date: 06/20/21 Status: Ordered sertraline 100 mg oral tablet 2 tablet = 200 mg, By Mouth, Daily, DOSE INCREASE, # 60 tablet, 11 Refills, Maintenance, 01/08/21 14:15:00 EDT, Tablet, [facility]/pharmacy #1157, dose increase, 167.6, cm, 01/08/21 13:53:00 EDT, Height, 90.7, kg, 09/08/19 8:17:00 EST, Dry Weight Start Date: 01/08/21 Stop Date: 01/03/22 Status: Ordered tamsulosin 0.4 mg oral capsule 0.4 mg, 1, capsule, By Mouth, Daily, 30 minutes after the same meal, # 90 capsule, Refills 3, Tot. Refills 3, Maintenance, 10/25/20 7:20:00 EST, Route to Pharmacy Electronically, [facility]/pharmacy #1157, 167.6, cm, 03/27/20 8:14:00 EDT, [...] Major depression in partial remission Discharge Diagnosis 02/07/21 Essential hypertension Discharge Diagnosis 02/07/21 Vital Signs Most recent to oldest [Reference Range]: 1 Height 167.6 cm (02/07/21 9:57 AM) Blood Pressure [90-138/55-84 mm Hg] 149/ 86mm Hg *H* (02/07/21 9:57 AM) Blood pressure sites Arm, right (02/07/21 9:57 AM) Social History Social History Type Response Smoking Status Former smoker; Type: Cigarettes; Other: quit 2006; entered on: 09/19/17 Sex
--- OUTSIDE RECORDS SUMMARY | 2023-08-20 10:41 | XMS_ITS | Continuity of Care Document ---
Author Name Unknown Organization [facility] Adult Address Unknown Care Team Providers Care Airport Screener Name Role Phone Brennan Tyson MD Primary Care Physician Encounter [facility] Date(s): 11/21/21 - 12/21/21 [facility] Attending Physician: Joy Dove Admitting Physician: Joy Dove Referring Physician: Joy Dove Allergies, Adverse Reactions, Alerts Substance Reaction Severity Status labetalol Active tetanus toxoid Active HORSE SERUM PROTEINS AB.IGE.RAST CLASS Active Immunizations Given and Recorded Vaccine Date Status Refusal Reason influenza virus vaccine, inactivated 06/21/21 Alexx rded influenza virus vaccine, inactivated 06/27/20 Alexx rded influenza virus vaccine, inactivated 07/09/19 Give n influenza virus vaccine, inactivated 1 08/12/18 Gi tiera influenza virus vaccine, inactivated 07/24/17 Give n SARS-CoV-2 (COVID-19) mRNA-1273 vaccine 06/21/21 R ecorded [...] tetanus/diphtheria/pertussis, acel(Tdap) 10/20/13 Given 1Result Comment: [08/12/2018] [facility] [id number] 2Result Comment: [08/12/2018] [facility] [id number] Medications Advair Diskus 500 mcg-50 mcg inhalation powder 1 puffs, Inhalation, 2 times a day, # 180 each, 0 Refills, Maintenance, Powder Start Date: 10/23/12 Status: Ordered amLODIPine 10 mg oral tablet 10 mg, 1, tablet, By Mouth, Daily, # 90 tablet, Refills 3, Tot. Refills 3, Maintenance, 08/26/21 13:26:00 EST, Route to Pharmacy Electronically, [facility]/pharmacy #1157, 167.6, cm, 05/07/21 16:16:00 EDT, Height, [...] 11 Refills, Maintenance, 02/28/21 15:05:00 EDT, Tablet, [facility]/pharmacy #1157, Partial fill upon patient request if the prescription is for a schedule II opioid drug., 167.6, cm, 02/07/21 9:57:00 EDT, Heigh... Start Date: 02/28/21 Status: Ordered carvedilol 25 mg oral tablet 25 mg, 1, tablet, By Mouth, 2 times a day, # 60 tablet, Refills 11, Tot. Refills 11, Maintenance, 02/28/21 16:34:00 EDT, Route to Pharmacy Electronically, [facility]/pharmacy #1157, 167.6, cm, 02/07/21 9:57:00 EDT, Height, [...] Refills, Maintenance, 12/25/20 9:10:00 EST, [facility], 167.6, cm, 11/28/20 10:41:00 EST, Height, 90.7, kg, 09/08/19 8:17:00 EST, Dry Weight Start Date: 12/25/20 Status: Ordered fenofibrate 160 mg oral tablet 0.5 tablet, By Mouth, Daily, # 45 tablet, 3 Refills, Maintenance, 05/28/21 7:19:00 EDT, [facility]/pharmacy #1157, 167.6, cm, 05/07/21 16:16:00 EDT, Height, [...] Mouth, Daily, # 90 tablet, Refills 1, Tot. Refills 1, Maintenance, 08/29/21 11:45:00 EST, Route to Pharmacy Electronically, [facility]/pharmacy #1157, 167.6, cm, 06/06/21 9:25:00 EDT, Height, 90.7, kg, 09/08/19 8:17:00 EST, Dry Weight Start Date: 08/29/21 Stop Date: 02/25/22 Status: Ordered montelukast 10 mg oral tablet [...] day, for 90 days, # 180 capsule, 1 Refills, Physician Stop 02/25/22 11:45:00 EDT, 08/29/21 11:45:00 EST, [facility]/pharmacy #1157, 167.6, cm, 06/06/21 9:25:00 EDT, Height, 90.7, kg, 09/08/19 8:17:00 EST, Dry Weight Start Date: 08/29/21 Stop Date: 02/25/22 Status: Ordered One Touch Delica Lancets See [...] Start Date: 11/04/18 Status: Ordered Potassium Chloride (Foj-Zcmx-Alk 10) 10 mEq oral tablet, extended release 1 tablet, By Mouth, Daily, # 90 tablet, 3 Refills, [facility], 167.6, cm, 06/06/21 9:25:00 EDT, Height, 90.7, [...] tablet, 1 Refills, Maintenance, 08/29/21 11:45:00 EST, [facility], 167.6, cm, 06/06/21 9:25:00 EDT, Height, [...] = 100 mg, By Mouth, Daily, # 90 tablet, 3 Refills, Maintenance, 05/29/21 14:34:00 EDT, Tablet, [facility]/pharmacy #1157, dose increase, 167.6, cm, 05/07/21 16:16:00 EDT, Height, 90.7, kg, 198:17:00 EST, Dry Weight Start Date: 05/29/21 Stop Date: 05/24/22 Status: Ordered tamsulosin 0.4 mg oral capsule See Instructions, TAKE 1 CAPSULE BY MOUTH DAILY 30 MINUTES AFTER THE SAME MEAL, # 90 capsule, Refills 1, Instructions Replace Required Details, Route to Pharmacy Electronically, [facility] 8[facility]63, 167.6, cm, 06/06/21 9:25:00 EDT, Height Start Date: 11/06/21 Status: Ordered Problem List Condition Effective Dates [...]
--- OUTSIDE RECORDS SUMMARY | 2023-08-20 10:41 | XMS_ITS | Continuity of Care Document ---
Author Name Unknown Organization [facility] Adult Address [address] [place] [address]- Care Team Providers Care Traffic Sign Erection Supervisor Name Role Phone Brennan Tyson MD Primary Care Physician [facility]): 07/16/23 - 08/15/23 [facility] [address] [place] [address]- Allergies, Adverse Reactions, Alerts Substance Reaction Severity Status labetalol Active tetanus toxoid Active HORSE SERUM PROTEINS AB.IGE.RAST CLASS Active Immunizations Given and Recorded Vaccine Date Status Refusal Reason [id number] bivalent booster vax 07/21/23 Recorded influenza virus vaccine, inactivated 06/28/23 Alexx rded influenza virus vaccine, inactivated 08/12/22 Alexx rded [...] tetanus/diphtheria/pertussis, acel(Tdap) 10/20/13 Given 1Result Comment: [08/12/2018] [facility] [id number] 2Result Comment: [08/12/2018] [facility] [id number] Medications Advair Diskus 500 mcg-50 mcg inhalation [...] opioid drug. Start Date: 02/10/23 Status: Ordered aspirin 81 mg oral delayed release tablet 81 mg, 1, tablet, By Mouth, Daily, # 90 tablet, Refills 0, Tot. Refills 0, Maintenance, 03/27/23 10:47:00 EDT, Route to Pharmacy Electronically, [facility], Partial fill upon patient request if the prescription is for a schedule II opioi... Start Date: 03/27/23 Status: Ordered atorvastatin 40 mg oral tablet 1 tablet, By Mouth, Daily, # 90 tablet, 1 Refills, Maintenance, 07/10/23 18:32:00 EDT, [facility], 167.6, cm, 07/02/23 13:44:00 EDT, Height, 85, kg, 01/15/23 14:55:00 EDT, Dry Weight Start Date: 07/10/23 Status: Ordered bumetanide 1 mg oral tablet 2 mg, 2, tablet, By Mouth, Daily, # 180 tablet, Refills 1, Maintenance, 07/02/23 15:49:00 EDT, Route to Pharmacy Electronically, [facility] 90354, 167.6, cm, 07/02/23 13:44:00 EDT, Height, 85, kg, 01/15/23 14:55:00 EDT, Dry Weight Start Date: 07/02/23 Status: Ordered carvedilol 25 mg oral tablet 1, tablet, By Mouth, 2 times a day, # 180 tablet, Refills 3, Maintenance, 02/26/23 16:11:00 EDT, Route to Pharmacy Electronically, [facility], 165, cm, 02/21/23 9:40:00 EDT, Height, 85, kg, 01/15/23 14:55:00 EDT, Dry Weight Start Date: 02/26/23 Status: Ordered duloxetine 30 mg oral enteric coated capsule See Instructions, 1 capsule daily for 2 weeks and then 1 capsule every other day for 2 weeks and then stop., # 21 capsule, 0 Refills, Maintenance, 07/09/23 15:44:00 EDT, [facility]/pharmacy #[id number], Partial fill upon patient request if the prescription is for... Start Date: 07/09/23 Status: Ordered duloxetine 60 mg oral enteric coated capsule 1 capsule, By Mouth, Daily, # 90 capsule, 3 Refills, Maintenance, 07/02/23 15:49:00 EDT, [facility]64, 167.6, cm, 07/02/23 13:44:00 EDT, Height, 85, kg, 01/15/23 14:55:00 EDT, Dry Weight Start Date: 07/02/23 Status: Ordered fenofibrate 160 mg oral tablet 0.5 tablet, By Mouth, Daily, # 45 tablet, 0 Refills, Maintenance, 06/10/23 0:49:00 EDT, [facility], 167.6, cm, 04/11/23 8:40:00 EDT, Height, 85, kg, 01/15/23 14:55:00 EDT, Dry Weight Start Date: 06/10/23 Status: Ordered fluticasone 50 mcg/inh nasal spray 2 sprays, Nares, Both, Daily, Maintenance, 08/18/22 17:16:00 EDT, [place], Partial fill upon patient request if the prescription is for a schedule II opioid drug. Start Date: 08/18/22 Status: Ordered Incruse Ellipta 62.5 mcg/inh inhalation [...] Dry Weight Start Date: 10/17/22 Status: Ordered LORazepam 0.5 mg oral tablet 1 tablet = 0.5 mg, By Mouth, Daily, PRN as needed for anxiety, # 30 tablet, 1 Refills, Maintenance,02/21/23 10:02:00 EDT, [facility]/pharmacy #1157, Partial fill upon patient request if the prescription isfor a schedule II opioid drug., 165, cm, 02/21/23 9... Start Date: 02/21/23 Status: Ordered melatonin 3 mg oral tablet [...] 2 times a day, # 180 capsule, 3 Refills, Maintenance, 06/19/23 16:44:00 EDT, [facility], 167.6, cm, 04/11/23 8:40:00 EDT, Height, 85, kg, 01/15/23 14:55:00 EDT, Dry Weight Start Date: 06/19/23 Status: Ordered One Touch Delica Lancets See [...] kg... Start Date: 10/18/22 Status: Ordered Pen [place]stone, 31 G x 5 mm BD Ultra Fine III See Instructions, # 100 each, Refills 5, Tot. Refills 5, Maintenance, use as directed three times daily for heparin injections, 10/17/22 10:23:00 EST, Supply, 165, cm, 09/25/22 13:10:00 EST, Height, 103, kg, 09/19/22 22:30:00 EST, Dry Weight Start Date: 10/17/22 Stop Date: 04/15/23 Status: Ordered Plavix 75 mg oral tablet 75 mg, 1, tablet, By Mouth, Daily, # 90 tablet, Refills 0, Tot. Refills 0, Maintenance, 03/27/23 10:46:00 EDT, Route to Pharmacy Electronically, [facility], Partial fill upon patient request if the prescription is for a schedule II opioi... Start Date: 03/27/23 Status: Ordered Potassium Chloride (Tca-Rpjo-Vrm 10) 10 mEq oral tablet, extended release 1 tablet, By Mouth, Daily, # 90 tablet, 3 Refills, Maintenance, 07/02/23 15:49:00 EDT, [facility], 167.6, cm, 07/02/23 13:44:00 EDT, Height, 85, kg, 01/15/23 14:55:00 EDT, Dry Weight Start Date: 07/02/23 Status: Ordered Rollator Walker Rollator Walker, See Instructions, # 1 each, Refills 0, Tot. Refills 0, Maintenance, use daily for all ADL's, 09/06/22 11:47:00 EST, Supply Start Date: 09/06/22 Status: Ordered rOPINIRole 1 mg oral tablet 2 tablet, By Mouth, Daily at bedtime, # 180 tablet, 1 Refills, Maintenance, 07/02/23 15:49:00 EDT, [facility], 167.6, cm, 07/02/23 13:44:00 EDT, Height, 85, kg, 01/15/23 14:55:00 EDT, Dry Weight Start Date: 07/02/23 Status: Ordered tamsulosin 0.4 mg oral capsule See Instructions, TAKE 1 CAPSULE BY MOUTH DAILY 30 MINUTES AFTER THE SAME MEAL, # 90 capsule, Refills 1, Tot. Refills 1, Maintenance, 05/22/23 9:00:00 EDT, Instructions Replace Required Details, Route to Pharmacy Electronically, [facility]/pharmacy #[id number], 16... Start Date: 05/22/23 Status: Ordered traZODone 50 mg oral tablet 25 mg, 0.5, tablet, By Mouth, Every 8 hours, PRN, Refills 0, Maintenance, Anxiety, 09/28/22 10:55:00 EST, Partial fill upon patient request if the prescription is for a schedule II opioid drug. Start Date: 09/28/22 Status: Ordered Zaditor 0.025% ophthalmic solution 1 drops, Eye, Left, Every 8 hours, # 7.5 mL, 1 Refills, Maintenance, 07/02/23 14:05:00 EDT, [facility]/pharmacy #[id number], Partial fill upon patient request if the prescription is for a schedule II opioid drug., 1 drops Eye, Left Every 8 hours, 167.6, cm, ... Start Date: 07/02/23 Status: Ordered Problem List Condition Confirmation Course [...] Team Personnel Name: Nayeli Fernandez RN Position: [facility] RN Member Role: Primary Care Nurse Name: Sonny Silverman RN Position: [facility] RN Member Role: Primary Care Nurse Name: Luciano Hernandez MD Position: [facility] Renal MD Member Role: Lifetime Consulting Physician Address: Address: [address] [place] [address] [address] [facility] [place] [address]- Name: Brennan Tyson MD Position: [facility] Physician - Primary Care Member Role: PCP Address: Address: [address] [place] [address]- Name: Teresa Boyd [place] Position: [facility] DAPHNE Chemical Engineering Technologist Member Role: Director Prospect Name: Roxy Akers RN Position: [facility] MANISHA Nurse Member Role: Primary Care Nurse Care Team Related Persons Name: PRABHAKAR JACINTO Address: [address] [address] Name: KANG JACINTO Name: JOSE SHAW Address: [place] [address] Name: ANUM DUBOSE Address: home [address] [place] [id number]
--- OUTSIDE RECORDS SUMMARY | 2023-08-20 10:41 | XMS_ITS | Continuity of Care Document ---
Author Name Unknown Organization [facility] Adult Address [address] [place] [address]- Care Team Providers Care Political Advisor Name Role Phone Marbella RINCON, Brennan Primary Care Physician [facility] 04[facility]27/21 - 05/27/21 [facility] [address] [place] [address]- Allergies, Adverse Reactions, Alerts Substance Reaction Severity Status labetalol Active tetanus toxoid Active HORSE SERUM PROTEINS AB.IGE.RAST CLASS Active Immunizations Given and Recorded Vaccine Date Status Refusal Reason zoster vaccine, inactivated 01/03/21 Recorded zoster vaccine, inactivated 01/03/21 Recorded zoster vaccine, inactivated 10/03/20 Recorded SARS-CoV-2 (COVID-19) mRNA-1273 vaccine 12/15/20 R ecorded SARS-CoV-2 (COVID-19) mRNA-1273 vaccine 12/09/20 R ecorded SARS-CoV-2 (COVID-19) mRNA-1273 vaccine 11/17/20 R ecorded SARS-CoV-2 (COVID-19) mRNA-1273 vaccine 11/17/20 R ecorded Influenza Virus Vaccine (oldterm) 08/16/20 Recorde d influenza virus vaccine, inactivated 06/27/20 Alexx rded influenza virus vaccine, inactivated 07/09/19 Give n influenza virus vaccine, inactivated 1 08/12/18 Gi tiera influenza virus vaccine, inactivated 07/24/17 Give n pneumococcal 23-valent vaccine 2 08/12/18 Given pneumococcal 23-valent vaccine 07/22/11 Given pneumococcal 13-valent vaccine 05/07/16 Given Zoster Vaccine Live 07/27/15 Given tetanus/diphtheria/pertussis, acel(Tdap) 10/20/13 Given 1Result Comment: [08/12/2018] [facility] [id number] 2Result Comment: [08/12/2018] [facility] [id number] Medications Advair Diskus 500 mcg-50 mcg inhalation powder 1 puffs, Inhalation, 2 times a day, # 180 each, 0 Refills, Maintenance, Powder Start Date: 10/23/12 Status: Ordered amLODIPine 10 mg oral tablet 10 mg, 1, tablet, By Mouth, Daily, # 90 tablet, Refills 0, Tot. Refills 0, Maintenance, 05/28/21 13:26:00 EDT, Route to Pharmacy Electronically, [facility]/pharmacy #[id number], 167.6, cm, 05/07/21 16:16:00 EDT, Height, 90.7, kg, 09/08/19 8:17:00 EST, Dry Weight Start Date: 05/28/21 Stop Date: 08/26/21 Status: Ordered amLODIPine 10 mg oral tablet 10 mg, 1, tablet, By Mouth, Daily, for 90 days, # 90 tablet, Refills 3, Tot. Refills 3, Hard Stop 05/28/21 13:26:00 EDT, 06/02/20 13:26:00 EDT, Route to Pharmacy Electronically, [facility]/pharmacy #[id number], 167.6, cm, 03/27/20 8:14:00 EDT, Height, 90.7, kg, 11... Start Date: 06/02/20 Stop Date: 05/28/21 Status: Ordered aspirin 81 mg oral delayed release tablet 81 mg, 1, tablet, By Mouth, Daily, # 30 tablet, Refills 0, Maintenance, 12/27/18 10:46:04 EDT Start Date: 12/27/18 Status: Ordered atorvastatin 40 mg oral tablet 1 tablet = 40 mg, By Mouth, Daily, # 30 tablet, 11 Refills, Maintenance, 02/28/21 15:05:00 EDT, Tablet, [facility]/pharmacy #[id number], Partial fill upon patient request if the prescription is for a schedule II opioid drug., 167.6, cm, 02/07/21 9:57:00 EDT, [facility]... Start Date: 02/28/21 Status: Ordered carvedilol 25 mg oral tablet 25 mg, 1, tablet, By Mouth, 2 times a day, # 60 tablet, Refills 11, Tot. Refills 11, Maintenance, 02/28/21 16:34:00 EDT, Route to Pharmacy Electronically, [facility]/pharmacy #[id number], 167.6, cm, 02/07/21 9:57:00 EDT, Height, [...] tablet, 5 Refills, Maintenance, 12/25/20 9:10:00 EST, [facility] STORE 99508, 167.6, cm, 11/28/20 10:41:00 EST, Height, 90.7, kg, 09/08/19 8:17:00 EST, Dry Weight Start Date: 12/25/20 Status: Ordered fenofibrate 160 mg oral tablet 0.5 tablet, By Mouth, Daily, # 45 tablet, 1 Refills, Maintenance, 05/25/21 15:51:00 EDT, [facility]/pharmacy #1157, 167.6, cm, 05/07/21 16:16:00 EDT, Height, 90.7, kg, 09/08/19 8:17:00 EST, Dry Weight Start Date: 05/25/21 Status: Ordered hydrochlorothiazide 12.5 mg oral tablet See Instructions, 2 tabs po qAm and 1 tab qPM, # 90 each, 2 Refills, Maintenance, 02/12/21 7:40:00 EDT, [facility]/pharmacy #1157, dose increase, 167.6, cm, 02/07/21 9:57:00 [...] 30 days, # 30 tablet, 2 Refills,Acute 06/26/21 15:17:00 EDT, 03/28/21 15:17:00 EDT, Tablet, [facility]/pharmacy #1157, 167.6, cm, :57:00 EDT, Height, 90.7, kg, 09/08/19 8:17:00 EST... Start Date: 03/28/21 Stop Date: 06/26/21 Status: Ordered montelukast 10 mg oral tablet [...] day, # 180 capsule, 0 Refills, Maintenance, 04/27/21 8:50:00 EDT, [facility]/pharmacy #1157, 167.6, cm, 04/10/21 12:50:00 EDT, Height, 90.7, kg, 09/08/19 8:17:00 EST, Dry Weight Start Date: 04/27/21 Status: Ordered One Touch Delica Lancets See [...] tablet, 11 Refills, Maintenance, 08/31/20 11:42:00 EST, [facility]/pharmacy #1157, 167.6, cm, [...] BEDTIME, # 180 tablet, 1 Refills, Maintenance, [facility]ORE 37909, 167.6, cm, 04/10/21 12:50:00 EDT, Height, 90.7, kg, 09/08/19 8:17:00 EST, Dry Weight Start Date: 05/07/21 Status: Ordered rOPINIRole 1 mg oral tablet 2 tablet = 2 mg, By Mouth, Daily at bedtime, # 180 tablet, 1 Refills, Maintenance, 12/22/20 12:40:00 EST, Tablet, [facility]/pharmacy #1157, 167.6, cm, 11/28/20 10:41:00 EST, Height, 90.7, kg, 09/08/19 8:17:00 EST, Dry Weight Start Date: 12/22/20 Stop Date: 06/20/21 Status: Ordered sertraline 100 mg oral tablet 2 tablet = 200 mg, By Mouth, Daily, DOSE INCREASE, # 60 tablet, 11 Refills, Maintenance, 01/08/21 14:15:00 EDT, Tablet, [facility]/pharmacy #1157, dose increase, 167.6, cm, 01/08/21 13:53:00 EDT, Height, 90.7, kg, 09/08/19 8:17:00 EST, Dry Weight Start Date: 01/08/21 Stop Date: 01/03/22 Status: Ordered tamsulosin 0.4 mg oral capsule 0.4 mg, 1, capsule, By Mouth, Daily, 30 minutes after the same meal, # 90 capsule, Refills 3, Tot. Refills 3, Maintenance, 10/25/20 7:20:00 EST, [facility] to Pharmacy Electronically, [facility] [...]
--- OUTSIDE RECORDS SUMMARY | 2023-08-20 10:41 | XMS_ITS | Continuity of Care Document ---
Author Name Unknown Organization [facility] Adult Address [address] [place] [address]- Care Team Providers Care Polysilicon Preparation Worker Name Role Phone Brennan Tyson MD Primary Care Physician [facility]): 07[facility]23 - 08/01/23 [facility] [address] [place] [address]- Attending Physician: AdmJoy hernandez Admitting Physician: Admtr, Ar8 Referring Physician: Admtr, Ar8 Allergies, Adverse Reactions, Alerts Substance Reaction Severity Status labetalol Active tetanus toxoid Active HORSE SERUM PROTEINS AB.IGE.RAST CLASS Active Immunizations Given and Recorded Vaccine Date Status Refusal Reason [id number] bivalent booster vax 07/21/23 Recorded influenza virus [...] tetanus/diphtheria/pertussis, acel(Tdap) 10/20/13 Given 1Result Comment: [08/12/2018] [facility] 11822-304-05 2Result Comment: [08/12/2018] [facility] [id number] Medications Advair Diskus 500 mcg-50 mcg inhalation [...] 03/27/23 10:47:00 EDT, Route to Pharmacy Electronically, [facility], Partial fill upon patient request if the prescription is for a schedule II opioi... Start Date: 03/27/23 Status: Ordered atorvastatin 40 mg oral tablet 1 tablet, By Mouth, Daily, # 90 tablet, 1 Refills, Maintenance, 07/10/23 18:32:00 EDT, [facility] ST[facility]8977, 167.6, cm, 07/02/23 13:44:00 EDT, Height, 85, kg, 01/15/23 14:55:00 EDT, Dry Weight Start Date: 07/10/23 Status: Ordered bumetanide 1 mg oral tablet 2 mg, 2, tablet, By Mouth, Daily, # 180 tablet, Refills 1, Maintenance, 07/02/23 15:49:00 EDT, Route to Pharmacy Electronically, [facility] 26961, 167.6, cm, 07/02/23 13:44:00 EDT, Height, 85, kg, 01/15/23 14:55:00 EDT, Dry Weight Start Date: 07/02/23 Status: Ordered carvedilol 25 mg oral tablet 1, tablet, By Mouth, 2 times a day, # 180 tablet, Refills 3, Maintenance, 02/26/23 16:11:00 EDT, Route to Pharmacy Electronically, [facility] 12707, 165, cm, 02/21/23 9:40:00 EDT, Height, 85, kg, 01/15/23 14:55:00 EDT, Dry Weight Start Date: 02/26/23 Status: Ordered duloxetine 30 mg oral enteric coated capsule See Instructions, 1 capsule daily for 2 weeks and then 1 capsule every other day for 2 weeks and then stop., # 21 capsule, 0 Refills, Maintenance, 07/09/23 15:44:00 EDT, [facility]/pharmacy #1157, Partial fill upon patient request if the prescription is for... Start Date: 07/09/23 Status: Ordered duloxetine 60 mg oral enteric coated capsule 1 capsule, By Mouth, Daily, # 90 capsule, 3 Refills, Maintenance, 07/02/23 15:49:00 EDT, [facility] 40931, 167.6, cm, 07/02/23 13:44:00 EDT, Height, 85, kg, 01/15/23 14:55:00 EDT, Dry Weight Start Date: 07/02/23 Status: Ordered fenofibrate 160 mg oral tablet 0.5 tablet, By Mouth, Daily, # 45 tablet, 0 Refills, Maintenance, 06/10/23 0:49:00 EDT, [facility], 167.6, cm, 04/11/23 8:40:00 EDT, Height, 85, kg, 01/15/23 14:55:00 EDT, Dry Weight Start Date: 06/10/23 Status: Ordered fluticasone 50 mcg/inh nasal spray 2 sprays, Nares, Both, Daily, Maintenance, 08/18/22 17:16:00 EDT, [place], Partial fill upon patient request if the [...] 30 tablet, 1 Refills, Maintenance,02/21/23 10:02:00 EDT, [facility]/pharmacy #1157, Partial fill upon patient [...] Refills, Maintenance, 06/19/23 16:44:00 EDT, [facility], 167.6, cm, 04/11/23 8:40:00 EDT, Height, 85, [...] kg... Start Date: 10/18/22 Status: Ordered Pen Challis, 31 G x 5 mm BD Ultra [...] 03/27/23 10:46:00 EDT, Route to Pharmacy Electronically, [facility], Partial fill upon patient request if the prescription is for a schedule II opioi... Start Date: 03/27/23 Status: Ordered Potassium Chloride (Hme-Vopr-Woc 10) 10 mEq oral tablet, extended release 1 tablet, By Mouth, Daily, # 90 tablet, 3 Refills, Maintenance, 07/02/23 15:49:00 EDT, [facility], 167.6, cm, 07/02/23 13:44:00 EDT, Height, 85, [...] Refills, Maintenance, 07/02/23 15:49:00 EDT, [facility], 167.6, cm, 07/02/23 13:44:00 EDT, Height, 85, kg, 01/15/23 14:55:00 EDT, Dry Weight Start Date: 07/02/23 Status: Ordered sertraline 50 mg oral tablet See Instructions, Take 0.5 tablet daily at bedtime for 2 weeks and then increase to a full tablet daily at bedtime for 2 weeks., # 21 tablet, 0 Refills, Maintenance, 07/09/23 15:44:00 EDT, [facility], Partial fill upon patient request if the p... Start Date: 07/09/23 Status: Ordered tamsulosin 0.4 mg oral capsule See Instructions, TAKE 1 CAPSULE BY MOUTH DAILY 30 MINUTES AFTER THE SAME MEAL, # 90 capsule, Refills 1, Tot. Refills 1, Maintenance, 05/22/23 9:00:00 EDT, Instructions Replace Required Details, Route to Pharmacy Electronically, [facility]/pharmacy #1157, 16... Start Date: 05/22/23 Status: Ordered [...] mL, 1 Refills, Maintenance, 07/02/23 14:05:00 EDT, [facility]/pharmacy #1157, Partial fill upon patient [...] Other: quit 2006; entered on: 09/19/17 Sex Cardiology * Event Display: Holter Monitor Non BH Authored Date: * Event Display: Cardiovascular Result Scanned Authored Date: * Event Display: Cardiology Office Note, Non-BH Authored Date: * Event Display: Cardiovascular Result Scanned Authored Date: Cardiology Consult note * Event Display: Consult Note Cardiology Authored Date: * Event Display: Consult Note Cardiology Authored Date: Radiology * Event Display: [place] Nuclear Medicine Authored Date: * Event Display: [place] Nuclear Medicine, Non-BH Authored Date: Patient Care team information Care Team Personnel Name: Nayeli Fernandez RN Position: S RN Member Role: Primary Care Nurse Name: Sonny Silverman RN Position: [facility] RN Member Role: Primary Care Nurse Name: Luciano Hernandez MD Position: [facility] Renal MD Member Role: Lifetime Consulting Physician Address: Address: [address] [facility] [place] [address]- [place] Name: Brennan Tyson MD Position: [facility] Physician - Primary Care Member Role: PCP Address: Address: [address] [place] [id number]- [place] Name: Teresa Boyd [place] Position: [facility] DAPHNE Benefits Manager Member Role: Network Infrastructure Architect Name: Roxy Akers RN Position: [facility] AMB Nurse Member Role: Primary Care Nurse Name: Flores Freeman RN Position: [facility] RN Member Role: Primary Care Nurse Care Team Related Persons Name: PRABHAKAR JACINTO Address: home [address] [place] [address] Name: KANG JACINTO Name: JOSE SHAW Address: [place] [address] Name: ANUM DUBOSE Address: home [address] [place] [address]
--- OUTSIDE RECORDS SUMMARY | 2023-08-20 10:41 | XMS_ITS | Continuity of Care Document ---
Author Name Unknown Organization [facility] Adult Address [address] [place] [address]- Care Team Providers Care Associate Professor Of Physics Name Role Phone Brennan Tyson MD Primary Care Physician [phone] [facility]counter [facility] Date[facility]): 02/26/23 - 03/28/23 [facility] [address] [place] [address]- Allergies, Adverse Reactions, Alerts Substance Reaction Severity [...] acel(Tdap) 10/20/13 Given 1Result Comment: [08/12/2018] [facility] [id number] 2Result Comment: [08/12/2018] [facility] [id number] Medications Advair Diskus 500 mcg-50 mcg inhalation [...] 03/27/23 10:47:00 EDT, Route to Pharmacy Electronically, [facility], Partial fill upon patient request if the prescription is for a schedule II opioi... Start Date: 03/27/23 Status: Ordered atorvastatin 40 mg oral tablet 1 tablet, By Mouth, Daily, # 90 tablet, 1 Refills, Maintenance, 02/22/23 10:19:00 EDT, [facility] STORE 97372, 165, cm, 02/21/23 9:40:00 EDT, Height, 85, kg, 01/15/23 14:55:00 EDT, Dry Weight Start Date: 02/22/23 Status: Ordered bumetanide 1 mg oral tablet 1 mg, 1, tablet, By Mouth, Daily, dose reduction, # 30 tablet, Refills 5, Tot. Refills 5, Maintenance, 03/13/23 11:25:00 EDT, Route to Pharmacy Electronically, [facility]/pharmacy #1157, Partial fill upon patient request if the prescription is for a schedule... Start Date: 03/13/23 Status: Ordered carvedilol 25 mg oral tablet 1, tablet, By Mouth, 2 times a day, # 180 tablet, Refills 3, Maintenance, 02/26/23 16:11:00 EDT, Route to Pharmacy Electronically, [facility], 165, cm, 02/21/23 9:40:00 EDT, Height, 85, kg, 01/15/23 14:55:00 EDT, Dry Weight Start Date: 02/26/23 Status: Ordered duloxetine 60 mg oral enteric [...] # 45 tablet, 4 Refills, [facility], 167.6, cm, 04/01/22 8:47:00 EDT, Height Start Date: 06/07/22 Status: Ordered fluticasone 50 mcg/inh nasal spray 2 sprays, Nares, Both, Daily, Maintenance, 08/18/22 17:16:00 EDT, [place], Partial fill upon patient request if the [...] 30 tablet, 1 Refills, Maintenance,02/21/23 10:02:00 EDT, [facility]/pharmacy #1157, Partial fill upon patient [...] Stop 04/04/23 15:00:00 EDT, 04/09/22 15:00:00 EDT, [facility]/pharmacy #1157, 167.6, cm, 04/01/22 8:47:00 [...] kg... Start Date: 10/18/22 Status: Ordered Pen [place], 31 G x 5 mm BD Ultra [...] 03/27/23 10:46:00 EDT, Route to Pharmacy Electronically, [facility], Partial fill upon patient request if the prescription is for a schedule II opioi... Start Date: 03/27/23 Status: Ordered Rollator Walker Rollator Walker, See Instructions, # 1 each, Refills 0, Tot. Refills 0, Maintenance, use daily for all ADL's, 09/06/22 11:47:00 EST, Supply Start Date: 09/06/22 Status: Ordered rOPINIRole 1 mg oral tablet 2 tablet, By Mouth, Daily at bedtime, # 180 tablet, 1 Refills, Maintenance, 02/27/23 10:11:00 EDT, [facility] STORE 58789, 165, cm, 02/21/23 9:40:00 EDT, Height, 85, kg, 01/15/23 14:55:00 EDT, Dry Weight Start Date: 02/27/23 Status: Ordered tamsulosin 0.4 mg oral capsule See Instructions, TAKE 1 CAPSULE BY MOUTH DAILY 30 MINUTES AFTER THE SAME MEAL, # 90 capsule, Refills 1, Maintenance, 11/08/22 11:58:00 EST, Instructions Replace Required Details, Route to Pharmacy Electronically, [facility] STORE 76352, 165, cm, 10/18/22 16... Start Date: 11/08/22 [...] Care Nurse Name: Sonny Silverman RN Position: S RN Member Role: Primary Care Nurse Name: Luciano Hernandez MD Position: [facility] Renal Member Role: Lifetime Consulting Physician Address: Address: [address] [place] [address] [address] [facility] [place], [place] [address]- Name: Brennan Tyson MD Position: [facility] Physician - Primary Care Member Role: PCP Address: Address: [address] [place] [address]- Name: Roxy Akers RN Position: [facility] AMB Nurse Member Role: Primary Care Nurse Name: Flores Freeman RN Position: [facility] RN Member Role: Primary Care Nurse Care Team Related Persons Name: PRABHAKAR JACINTO Address: home [address] [place] [address] Name: KANG JACINTO Name: JOSE SHAW Address: [place] [address] Name: ANUM DUBOSE Address: home [address] [place] [address]
--- OUTSIDE RECORDS SUMMARY | 2023-08-20 10:41 | XMS_ITS | Continuity of Care Document ---
Author Name Unknown Organization [facility] Adult Address Unknown Care Team Providers Care Biofuels Operations Manager Name Role Phone Brennan Tyson MD Primary Care Physician [phone] [facility] [facility] [place]s): 11/21/21 - 11/28/21 [facility] Attending Physician: Brennan Tyson MD Allergies, Adverse [...] tetanus/diphtheria/pertussis, acel(Tdap) 10/20/13 Given 1Result Comment: [08/12/2018] [facility] [id number] 2Result Comment: [08/12/2018] [facility] [id number] Medications Advair Diskus 500 mcg-50 mcg inhalation powder 1 puffs, Inhalation, 2 times a day, # 180 each, 0 Refills, Maintenance, Powder Start Date: 10/23/12 Status: Ordered amLODIPine 10 mg oral tablet 10 mg, 1, tablet, By Mouth, Daily, # 90 tablet, Refills 3, Tot. Refills 3, Maintenance, 08/26/21 13:26:00 EST, Route to Pharmacy Electronically, [facility]/pharmacy #1157, 167.6, cm, 05/07/21 16:16:00 EDT, Height, [...] 11 Refills, Maintenance, 02/28/21 15:05:00 EDT, Tablet, [facility]/pharmacy #1157, Partial fill upon patient request if the prescription is for a schedule II opioid drug., 167.6, cm, 02/07/21 9:57:00 EDT, [place]... Start Date: 02/28/21 Status: Ordered carvedilol 25 mg oral tablet 25 mg, 1, tablet, By Mouth, 2 times a day, # 60 tablet, Refills 11, Tot. Refills 11, Maintenance, 02/28/21 16:34:00 EDT, Route to Pharmacy Electronically, [facility]/pharmacy #1157, 167.6, cm, 02/07/21 9:57:00 EDT, [...] Refills, Maintenance, 12/25/20 9:10:00 EST, [facility], 167.6, cm, 11/28/20 10:41:00 EST, Height, 90.7, kg, 09/08/19 8:17:00 EST, Dry Weight Start Date: 12/25/20 Status: Ordered fenofibrate 160 mg oral tablet 0.5 tablet, By Mouth, Daily, # 45 tablet, 3 Refills, Maintenance, 05/28/21 7:19:00 EDT, [facility]/pharmacy #1157, 167.6, cm, 05/07/21 16:16:00 EDT, Height, [...] 08/29/21 11:45:00 EST, Route to Pharmacy Electronically, [facility]/pharmacy #1157, 167.6, cm, 06/06/21 9:25:00 EDT, Height, [...] Stop 02/25/22 11:45:00 EDT, 08/29/21 11:45:00 EST, [facility]/pharmacy #1157, 167.6, cm, 06/06/21 9:25:00 EDT, Height, [...] Start Date: 11/04/18 Status: Ordered Potassium Chloride (Kan-Hili-Lhu 10) 10 mEq oral tablet, extended release 1 tablet, By Mouth, Daily, # 90 tablet, 3 Refills, [facility], 167.6, cm, 06/06/21 9:25:00 EDT, Height, 90.7, [...] tablet, 1 Refills, Maintenance, 08/29/21 11:45:00 EST, [facility]/pharmacy #1157, 167.6, cm, 06/06/21 9:25:00 EDT, Height, 90.7, kg, 09/08/19 8:17:00 EST, Dry Weight Start Date: 08/29/21 Status: Ordered rOPINIRole 1 mg oral tablet 2 tablet = 2 mg, By Mouth, Daily at bedtime, # 180 tablet, 1 Refills, Maintenance, 12/22/20 12:40:00 EST, Tablet, [facility]/pharmacy #1157, 167.6, cm, 11/28/20 10:41:00 EST, Height, 90.7, kg, 09/08/19 8:17:00 EST, Dry Weight Start Date: 12/22/20 Stop Date: 06/20/21 Status: Ordered sertraline 100 mg oral tablet 1 tablet = 100 mg, By Mouth, Daily, # 90 tablet, 3 Refills, Maintenance, 05/29/21 14:34:00 EDT, Tablet, [facility]/pharmacy #1157, dose increase, 167.6, cm, 05/07/21 16:16:00 EDT, Height, 90.7, kg, 198:17:00 EST, Dry Weight Start Date: 05/29/21 Stop Date: 05/24/22 Status: Ordered tamsulosin 0.4 mg oral capsule See Instructions, TAKE 1 CAPSULE BY MOUTH DAILY 30 MINUTES AFTER THE SAME MEAL, # 90 capsule, Refills 1, Instructions Replace Required Details, Route to Pharmacy Electronically, [facility] STORE 43006, 167.6, cm, 06/06/21 9:25:00 EDT, Height Start [...] diabetes mellitus wit h renal manifestations(Confirmed) Active Vital Signs Most recent to oldest [Reference Range]: 1 Height 167.6 cm (11/21/21 9:53 AM) Weight 95.1 kg (11/21/21 9:53 AM) Oxygen Saturation [94-100 %] 95 % (11/21/21 9:53 AM) Pulse Rate [55-90 bpm] 56 bpm (11/21/21 9:53 AM) Body Mass Index [18.5-24.99] 33.86 *>HHI* (11/21/21 9:53 AM) Blood Pressure [90-138/55-84 mm Hg] 132/ 82mm Hg (11/21/21 9:53 AM) Blood pressure sites Arm, left (11/21/21 9:53 AM) Social History Social History Type Response Smoking Status Former smoker; Type: Cigarettes; Other: quit 2006; entered on: 09/19/17 Sex
--- OUTSIDE RECORDS SUMMARY | 2023-08-20 10:41 | XMS_ITS | Continuity of Care Document ---
Author Name Unknown Organization [facility] Adult Address [address] [place] [address]- Care Team Providers Care Solution Make Up Operator Name Role Phone Brennan Tyson MD Primary Care Physician [facility]): 08/30/20 - 09/29/20 [facility] [address] [place] [address]- Allergies, Adverse Reactions, Alerts Substance Reaction Severity [...] tetanus/diphtheria/pertussis, acel(Tdap) 10/20/13 Given 1Result Comment: [08/12/2018] [facility] [id number] 2Result Comment: [08/12/2018] [facility] 3471-2834-15 Medications Advair Diskus 500 mcg-50 mcg inhalation powder 1 puffs, Inhalation, 2 times a day, # 180 each, 0 Refills, Maintenance, Powder Start Date: 10/23/12 Status: Ordered amLODIPine 10 mg oral tablet 10 mg, 1, tablet, By Mouth, Daily, # 90 tablet, Refills 3, Tot. Refills 3, Maintenance, 06/02/20 13:26:00 EDT, Route to Pharmacy Electronically, [facility]/pharmacy #1157, 167.6, cm, 03/27/20 8:14:00 EDT, Height, 90.7, kg, 11/20/19 8:17:00 EST, Dry Weight Start Date: 06/02/20 [...] 06/17/19 6:49:21 EDT, Route to Pharmacy Electronically, [id number], [facility]/pharmacy #1157 Start Date: 06/17/19 Status: Ordered [...] Refills, Maintenance, 12/01/19 13:16:00 EST, [facility], 167.6, cm, 11/24/19 9:18:00 EST, Height, 90.7, kg, 09/08/19 8:17:00 EST, Dry Weight Start Date: 12/01/19 Status: Ordered hydrochlorothiazide 12.5 mg oral tablet See Instructions, 2 tabs po qAm and 1 tab qPM, # 90 each, 5 Refills, Maintenance, 08/14/20 16:03:00EDT, [facility]/pharmacy #1157, dose increase, 167.6, cm, 03/27/20 8:14:00 [...] 06/02/20 13:26:00 EDT, Route to Pharmacy Electronically, [facility]/pharmacy #1157, 167.6, cm, 03/27/20 8:14:00 EDT,Height, 90.7, kg, 09/08/19 8:17:00 EST, Dry Weight Start Date: 06/02/20 Status: Ordered LORazepam 0.5 mg oral tablet 1 tablet = 0.5 mg, By Mouth, Daily, PRN as needed for anxiety, for 30 days, # 30 tablet, 2 Refills,Acute 11/13/20 9:56:00 EST, 08/15/20 9:56:00 EDT, Tablet, [facility]/pharmacy #1157, 167.6, cm, 03/27/20 8:14:00 EDT, Height, 90.7, kg, 09/08/19 8:17:00 EST,... Start Date: 08/15/20 Stop Date: 11/13/20 Status: Ordered nitroglycerin 0.4 mg sublingual tablet 1 tablet = 0.4 mg, Sublingual, Every 5 minutes, PRN for chest pain, # 100 tablet, 3 Refills, Maintenance, 11/07/17 7:56:13, Tablet Start Date: 11/07/17 Status: Ordered omeprazole 40 mg oral enteric coated capsule See Instructions, TAKE 1 CAPSULE BY MOUTH 2 TIMES A DAY, # 180 capsule, 0 Refills, Soft Stop, 08/14/20 16:03:00 EDT, [facility]/pharmacy #1157, 167.6, cm, 03/27/20 8:14:00 EDT, Height, 90.7, kg, 09/08/19 8:17:00 EST, Dry Weight Start Date: 08/14/20 Status: Ordered One Touch Delica Lancets See [...] tablet, 11 Refills, Maintenance, 08/31/20 11:42:00 EST, [facility]/pharmacy #1157, 167.6, cm, 03/27/20 8:14:00 EDT, [...] 1 Refills, Maintenance, 06/25/20 12:28:00 EDT, Tablet, [facility]/pharmacy #1157, 167.6, cm, 03/27/20 8:14:00 EDT, [...] 04/08/19 14:06:58 EDT, Route to Pharmacy Electronically, [id number], [facility] Start Date: 04/08/19 Status: Ordered [...]
--- OUTSIDE RECORDS SUMMARY | 2023-08-20 10:41 | XMS_ITS | Continuity of Care Document ---
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) - 11/15/22 Attending Physician: Brennan Tyson MD Allergies, Adverse Reactions, Alerts Substance Reaction Severity Status labetalol Active tetanus toxoid Active HORSE SERUM PROTEINS AB.IGE.RAST CLASS Active Immunizations Given and Recorded Vaccine Date Status Refusal Reason influenza virus vaccine, inactivated 08/12/22 Alexx rded influenza virus vaccine, inactivated 06/21/21 Alexx rded influenza virus vaccine, inactivated 06/27/20 Alxex rded influenza virus vaccine, inactivated 07/09/19 Give [...] Given 1Result Comment: [08/12/2018] [facility] [id number] 2Result Comment: [08/12/2018] [facility] [id number] Medications Advair Diskus 500 mcg-50 mcg inhalation [...] tablet, 1 Refills, Maintenance, 07/08/22 0:13:00 EDT, [facility] STORE 86443, 167.6, cm, 06/18/22 14:40:00 EDT, Height Start Date: 07/08/22 Status: Ordered buPROPion 150 mg/24 hours (XL) oral tablet, extended release 1 tablet = 150 mg, By Mouth, Every 24 hours, # 14 tablet, 0 Refills, Maintenance, 10/18/22 17:03:00EST, [facility]/pharmacy #1157, Partial fill upon [...] Refills, Maintenance, 10/20/22 11:47:00 EST, ER Tablet, [facility]/pharmacy #1157, Partial fill upon patient request if the prescription is for a... Start Date: 10/20/22 Status: Ordered carvedilol 25 mg oral tablet 1, tablet, By Mouth, 2 times a day, # 180 tablet, Refills 3, Route to Pharmacy Electronically, [facility], 167.6, cm, 11/21/21 9:53:00 EST, Height Start [...] # 45 tablet, 4 Refills, [facility], 167.6, cm, 04/01/22 8:47:00 EDT, Height Start Date: 06/07/22 Status: Ordered fluticasone 50 mcg/inh nasal spray 2 sprays, Nares, Both, Daily, Maintenance, 08/18/22 17:16:00 EDT, [place], Partial fill upon patient request if the [...] mL, 5 Refills, Maintenance, 10/17/22 11:51:00 EST, [facility], Partial fill upon patient [...] Stop 04/04/23 15:00:00 EDT, 04/09/22 15:00:00 EDT, [facility]/pharmacy #1157, 167.6, cm, 04/01/22 8:47:00 EDT, [...] kg... Start Date: 10/18/22 Status: Ordered Pen [place], 31 G x 5 mm BD Ultra [...] tablet, 1 Refills, Maintenance, 10/28/22 8:47:00EST, Tablet, [facility]/pharmacy #1157, 165, cm, 10/18/22 16:17:00 EST, Height, 103, kg, 09/19/22 22:30:00EST, Dry Weight Start Date: 10/28/22 Stop Date: 04/26/23 Status: Ordered tamsulosin 0.4 mg oral capsule See Instructions, TAKE 1 CAPSULE BY MOUTH DAILY 30 MINUTES AFTER THE SAME MEAL, # 90 capsule, Refills 1, Maintenance, 11/08/22 11:58:00 EST, Instructions Replace Required Details, Route to Pharmacy Electronically, [facility] STORE 59829, 165, cm, 10/18/22 16... Start Date: 11/08/22 [...] Active 1Per chart review meeting GFR criteria Diagnosis Diagnosis Type Effective Dates Health Status Clinical Service Informant Major depression in partial remission Discharge Diagnosis 11/15/22 Vital Signs Most recent to oldest [Reference Range]: 1 Height 165 cm (11/15/22 3:50 PM) Weight 87.99 kg (11/15/22 3:50 PM) Pulse Rate [55-90 bpm] 90 bpm (11/15/22 3:50 PM) Body Mass Index [18.5-24.99 kg/m2] 32.32 kg/m2 *>HHI* (11/15/22 3:50 PM) Blood Pressure [90-138/55-84 mm Hg] 166/ 90mm Hg *H* (11/15/22 3:50 PM) Temperature [96.8-100.4 DegF] 97.6 DegF (11/15/22 3:50 PM) Blood pressure sites Arm, left (11/15/22 3:50 PM) Social History Social History Type Response Smoking Status Former smoker; Type: Cigarettes; Other: quit 2006; entered on: 09/19/17 Sex Patient Care team information Care Team Personnel Name: Nayeli Fernandez RN Position: [facility] RN Member Role: Primary Care Nurse Name: Erin Pendleton RN Position: [facility] RN Member Role: Primary Care Nurse Name: Luciano Hernandez MD Position: [facility] Renal MD Member Role: Lifetime Consulting Physician Address: Address: [address] [place] [address] [address] [facility] [place], [place] [address]- Name: Brennan Tyson MD Position: [facility] Primary Care Physician Member Role: PCP Address: Address: [address] [place], [place] [address] Name: Roxy Akers RN Position: S RN Member Role: Primary Care Nurse Name: Flores Freeman RN Position: S RN Member Role: Primary Care Nurse Name: Fabiana Hairston RN Position: S RN Member Role: Primary Care Nurse Care Team Related Persons Name: ORVILEL PRABHAKAR Address: home [address] [place] [address] Name: KANG JACINTO Name: JOSE SHAW Address: [place] [address] Name: ANUM DUBOSE Address: home [address] [place] [address]
--- OUTSIDE RECORDS SUMMARY | 2023-08-20 10:42 | XMS_ITS | Continuity of Care Document ---
Author Name Unknown Organization [facility] Adult Address [address] [place] [address]- Care Team Providers Care Counseling Case Manager Name Role Phone Brennan Tyson MD Primary Care Physician [phone] [facility] 02[facility]10[facility]23 - 03/12/23 [facility] [address] [place] [address]- Allergies, Adverse Reactions, Alerts Substance Reaction Severity [...] 10/20/13 Given 1Result Comment: [08/12/2018] [facility] [id number] 2Result Comment: [08/12/2018] [facility] [id number] Medications Advair Diskus 500 mcg-50 mcg inhalation [...] tablet, 1 Refills, Maintenance, 02/22/23 10:19:00 EDT, [facility], 165, cm, 02/21/23 9:40:00 EDT, Height, 85, kg, 01/15/23 14:55:00 EDT, Dry Weight Start Date: 02/22/23 Status: Ordered bumetanide 2 mg oral tablet 1 tablet = 2 mg, By Mouth, Daily, # 14 tablet, 0 Refills, Maintenance, 02/28/23 9:45:00 EDT, [facility]/pharmacy #1157, Partial fill upon patient request if the prescription is for a schedule II opioid drug., 165, cm, 02/21/23 9:40:00 EDT, Height, 85, kg, 03... Start Date: 02/28/23 Stop Date: 03/14/23 Status: Ordered carvedilol 25 mg oral tablet 1, tablet, By Mouth, 2 times a day, # 180 tablet, Refills 3, Maintenance, 02/26/23 16:11:00 EDT, Route to Pharmacy Electronically, [facility], 165, cm, 02/21/23 9:40:00 EDT, Height, 85, kg, 01/15/23 14:55:00 EDT, Dry Weight Start Date: 02/26/23 Status: Ordered cholecalciferol 2000 intl units oral [...] Mouth, Daily, # 45 tablet, 4 Refills, [facility] 59418, 167.6, cm, 04/01/22 8:47:00 EDT, Height Start Date: 06/07/22 Status: Ordered fluticasone 50 mcg/inh nasal spray 2 sprays, Nares, Both, Daily, Maintenance, 08/18/22 17:16:00 EDT, [place], Partial fill upon patient request if the prescription is for a schedule II opioid drug. Start Date: 08/18/22 Status: Ordered heparin 5000 u/ml injectable solution = 5,000 units, Subcutaneous Injection, 3 times a day, # 90 mL, 5 Refills, Maintenance, 10/17/22 11:51:00 EST, [facility], Partial fill upon patient [...] 30 tablet, 1 Refills, Maintenance,02/21/23 10:02:00 EDT, [facility]/pharmacy #1157, Partial fill upon patient request if [...] Stop 04/04/23 15:00:00 EDT, 04/09/22 15:00:00 EDT, [facility]/pharmacy #1157, 167.6, cm, 04/01/22 8:47:00 EDT, Height [...] kg... Start Date: 10/18/22 Status: Ordered Pen [place], 31 G x 5 mm BD Ultra [...] tablet, 1 Refills, Maintenance, 02/27/23 10:11:00 EDT, [facility], 165, cm, 02/21/23 9:40:00 EDT, Height, 85, kg, 01/15/23 14:55:00 EDT, Dry Weight Start Date: 02/27/23 Status: Ordered tamsulosin 0.4 mg oral capsule See Instructions, TAKE 1 CAPSULE BY MOUTH DAILY 30 MINUTES AFTER THE SAME MEAL, # 90 capsule, Refills 1, Maintenance, 11/08/22 11:58:00 EST, Instructions Replace Required Details, Route to Pharmacy Electronically, [facility] 62413, 165, cm, 10/18/22 16... Start Date: 11/08/22 [...] Care Nurse Name: Luciano Hernandez MD Position: [facility] Renal MD Member Role: Lifetime Consulting Physician Address: Address: [address] [facility] [place] [address]- [place] Name: Brennan Tyson MD Position: [facility] Physician - Primary Care Member Role: PCP Address: Address: [address] [place] [address]- [place] Name: Roxy Akers RN Position: [facility] RN Member Role: Primary Care Nurse Name: Flores Freeman RN Position: [facility] RN Member Role: Primary Care Nurse Care Team Related Persons Name: PRABHAKAR JACINTO Address: [address] [place] [address] Name: KANG JACINTO Name: JOSE SHAW Address: [place] [address] Name: ANUM DUBOSE Address: home [address] [place] [address]
--- OUTSIDE RECORDS SUMMARY | 2023-08-20 10:42 | XMS_ITS | Continuity of Care Document ---
Author Name Unknown Organization [facility] Adult Address [address] [place] [address]- Care Team Providers Care Deburring And Tooling Machine Operator Name Role Phone Brennan Tyson MD Primary Care Physician [facility] Date[facility]s): 03/06/23 - 04/05/23 [facility] [address] [place] [address]- Allergies, Adverse Reactions, Alerts Substance Reaction Severity [...] tetanus/diphtheria/pertussis, acel(Tdap) 10/20/13 Given 1Result Comment: [08/12/2018] [facility] [id number] 2Result Comment: [08/12/2018] [facility] [id number] Medications Advair Diskus 500 mcg-50 mcg inhalation [...] 03/27/23 10:47:00 EDT, Route to Pharmacy Electronically, [facility], Partial fill upon patient request if the prescription is for a schedule II opioi... Start Date: 03/27/23 Status: Ordered atorvastatin 40 mg oral tablet 1 tablet, By Mouth, Daily, # 90 tablet, 1 Refills, Maintenance, 02/22/23 10:19:00 EDT, [facility] ST[facility] 39286, 165, cm, 02/21/23 9:40:00 EDT, Height, 85, kg, 01/15/23 14:55:00 EDT, Dry Weight Start Date: 02/22/23 Status: Ordered bumetanide 1 mg oral tablet 1 mg, 1, tablet, By Mouth, Daily, dose reduction, # 30 tablet, Refills 5, Tot. Refills 5, Maintenance, 03/13/23 11:25:00 EDT, Route to Pharmacy Electronically, [facility]/pharmacy #1157, Partial fill upon patient request if the prescription is for a schedule... Start Date: 03/13/23 Status: Ordered carvedilol 25 mg oral tablet 1, tablet, By Mouth, 2 times a day, # 180 tablet, Refills 3, Maintenance, 02/26/23 16:11:00 EDT, Route to Pharmacy Electronically, [facility], 165, cm, 02/21/23 9:40:00 EDT, Height, 85, [...] # 45 tablet, 4 Refills, [facility], 167.6, cm, 04/01/22 8:47:00 EDT, Height Start Date: 06/07/22 Status: Ordered fluticasone 50 mcg/inh nasal spray 2 sprays, Nares, Both, Daily, Maintenance, 08/18/22 17:16:00 EDT, [place], Partial fill upon patient request if the [...] 30 tablet, 1 Refills, Maintenance,02/21/23 10:02:00 EDT, [facility]/pharmacy #1157, Partial fill upon patient request [...] opioid drug. Start Date: 01/29/21 Status: Ordered One Touch Delica Lancets See [...] kg... Start Date: 10/18/22 Status: Ordered Pen [place], 31 G x 5 mm BD Ultra [...] 03/27/23 10:46:00 EDT, Route to Pharmacy Electronically, [facility], Partial fill upon patient request [...] tablet, 1 Refills, Maintenance, 02/27/23 10:11:00 EDT, [facility] 30599, 165, cm, 02/21/23 9:40:00 EDT, Height, 85, kg, 01/15/23 14:55:00 EDT, Dry Weight Start Date: 02/27/23 Status: Ordered tamsulosin 0.4 mg oral capsule See Instructions, TAKE 1 CAPSULE BY MOUTH DAILY 30 MINUTES AFTER THE SAME MEAL, # 90 capsule, Refills 1, Maintenance, 11/08/22 11:58:00 EST, Instructions Replace Required Details, Route to Pharmacy Electronically, [facility] 59983, 165, cm, 10/18/22 16... Start Date: 11/08/22 [...] Team Personnel Name: Nayeli Fernandez RN Position: [facility] RN Member Role: Primary Care Nurse Name: Erin Pendleton RN Position: [facility] RN Member Role: Primary Care Nurse Name: Sonny Silverman RN Position: [facility] RN Member Role: Primary Care Nurse Name: Luciano Hernandez MD Position: [facility] Renal MD Member Role: Lifetime Consulting Physician Address: Address: [address] [place] [address] [address] [facility] [place] [address]- Name: Brennan Tyson MD Position: [facility] Physician - Primary Care Member Role: PCP Address: Address: [address] [place] [address]- [place] Name: Roxy Akers RN Position: [facility] AMB Nurse Member Role: Primary Care Nurse Name: Flores Freeman RN Position: [facility] RN Member Role: Primary Care Nurse Care Team Related Persons Name: PRABHAKAR JACINTO Address: [address] [address] Name: KANG JACINTO Name: JOSE SHAW Address: [place] [address] Name: ANUM DUBOSE Address: home [address] [place] [address]
--- OUTSIDE RECORDS SUMMARY | 2023-08-20 10:42 | XMS_ITS | Continuity of Care Document ---
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) - 12/13/20 Attending Physician: Brennan Tyson MD Allergies, Adverse Reactions, Alerts Substance Reaction Severity Status labetalol Active tetanus toxoid Active HORSE SERUM PROTEINS AB.IGE.RAST CLASS Active Immunizations Given and Recorded Vaccine Date Status Refusal Reason SARS-CoV-2 (COVID-19) mRNA-1273 vaccine 11/17/20 R ecorded zoster vaccine, inactivated 10/03/20 Recorded Influenza Virus [...] 10/20/13 Given 1Result Comment: [08/12/2018] [facility] [id number] 2Result Comment: [08/12/2018] [facility] [id number] Medications Advair Diskus 500 mcg-50 mcg inhalation powder 1 puffs, Inhalation, 2 times a day, # 180 each, 0 Refills, Maintenance, Powder Start Date: 10/23/12 Status: Ordered amLODIPine 10 mg oral tablet 10 mg, 1, tablet, By Mouth, Daily, # 90 tablet, Refills 3, Tot. Refills 3, Maintenance, 06/02/20 13:26:00 EDT, Route to Pharmacy Electronically, [facility]/pharmacy #1157, 167.6, cm, 03/27/20 8:14:00 EDT, [...] 06/17/19 6:49:21 EDT, Route to Pharmacy Electronically, [id number], [facility]/pharmacy #1157 Start Date: 06/17/19 Status: Ordered [...] tablet, 1 Refills, Maintenance, 11/27/20 14:33:00 EST, [facility]/pharmacy #1157, 167.6, cm, 10/25/20 13:12:00 EST, Height, 90.7, kg, 09/08/19 8:17:00 EST, Dry Weight Start Date: 11/27/20 Status: Ordered hydrochlorothiazide 12.5 mg oral tablet See Instructions, 2 tabs po qAm and 1 tab qPM, # 90 each, 5 Refills, Maintenance, 08/14/20 16:03:00EDT, [facility]/pharmacy #1157, dose increase, 167.6, cm, 03/27/20 [...] 06/02/20 13:26:00 EDT, [facility] to [facility], [facility], 167.6, cm, 03/27/20 8:14:00 EDT,Height, 90.7, kg, 09/08/19 8:17:00 EST, Dry Weight Start Date: 06/02/20 Status: Ordered LORazepam 0.5 mg oral tablet 1 tablet = 0.5 mg, By Mouth, Daily, PRN as needed for anxiety, for 30 days, # 30 tablet, 2 Refills,Acute 02/26/21 11:08:00 EDT, 11/28/20 11:08:00 EST, Tablet, [facility]/pharmacy #1157, 167.6, cm, 11/28/2109:41:00 EST, Height, [...] 0 Refills, Soft Stop, 11/07/20 4:07:00 EST, [facility]/pharmacy #1157, 167.6, cm, 10/25/20 13:12:00 EST, [...] tablet, 11 Refills, Maintenance, 08/31/20 11:42:00 EST, [facility]/pharmacy #1157, 167.6, cm, 03/27/20 8:14:00 EDT, [...] 1 Refills, Maintenance, 06/25/20 12:28:00 EDT, Tablet, [facility]/pharmacy #1157, 167.6, cm, 03/27/20 8:14:00 EDT, Height, 90.7, kg, 09/08/19 8:17:00 EST, Dry Weight Start Date: 06/25/20 Stop Date: 12/22/20 Status: Ordered sertraline 100 mg oral tablet 1.5 tablet = 150 mg, By Mouth, Daily, # 45 tablet, 11 Refills, Maintenance, 11/28/20 11:02:00 EST, Tablet, [facility]/pharmacy #1157, dose increase, 167.6, cm, 11/28/20 10:41:00 EST, Height, 90.7, kg, 09/08/19 8:17:00 EST, Dry Weight Start Date: 11/28/20 Stop Date: 11/23/21 Status: Ordered tamsulosin 0.4 mg oral capsule 0.4 mg, 1, capsule, By Mouth, Daily, 30 minutes after the same meal, # 90 capsule, Refills 3, Tot. Refills 3, Maintenance, 10/25/20 7:20:00 EST, [facility], [facility], 167.6, cm, 03/27/20 8:14:00 EDT, [...] Major depression in partial remission Discharge Diagnosis 12/13/20 Social History Social History Type Response Smoking Status Former smoker; Type: Cigarettes; Other: quit 2006; entered on: 09/19/17 Sex
--- OUTSIDE RECORDS SUMMARY | 2023-08-20 10:42 | XMS_ITS | Continuity of Care Document ---
Author Name Unknown Organization [facility] Adult Address [address] [place] [address]- Care Team Providers Care Clerical Assigner Name Role Phone Brennan Tyson MD Primary Care Physician [phone] [facility]counter [facility] Date[facility]s): 09/06/22 - 11/06/22 [facility] [address] [place] [address]- Attending Physician: Brennan Tyson MD Allergies, Adverse [...] 1Result Comment: [08/12/2018] [facility] [id number] 2Result Comment: [08/12/2018] [facility] [id number] Medications Advair Diskus 500 mcg-50 mcg inhalation [...] tablet, 1 Refills, Maintenance, 07/08/22 0:13:00 EDT, [facility] STORE 24833, 167.6, cm, 06/18/22 14:40:00 EDT, Height Start Date: 07/08/22 Status: Ordered buPROPion 150 mg/24 hours (XL) oral tablet, extended release 1 tablet = 150 mg, By Mouth, Every 24 hours, # 14 tablet, 0 Refills, Maintenance, 10/18/22 17:03:00EST, [facility], Partial fill upon patient request [...] Refills, Maintenance, 10/20/22 11:47:00 EST, ER Tablet, [facility], Partial fill upon patient request if the prescription is for a... Start Date: 10/20/22 Status: Ordered carvedilol 25 mg oral tablet 1, tablet, By Mouth, 2 times a day, # 180 tablet, Refills 3, Route to Pharmacy Electronically, [facility], 167.6, cm, 11/21/21 9:53:00 EST, Height Start [...] Mouth, Daily, # 45 tablet, 4 Refills, [facility] 56795, 167.6, cm, 04/01/22 8:47:00 EDT, Height Start Date: 06/07/22 Status: Ordered fluticasone 50 mcg/inh nasal spray 2 sprays, Nares, Both, Daily, Maintenance, 08/18/22 17:16:00 EDT, [place], Partial fill upon patient request if the [...] mL, 5 Refills, Maintenance, 10/17/22 11:51:00 EST, [facility], Partial fill upon patient request [...] 16:02:00 EST, 10/10/22 16:02:00 EST, Tablet, [facility]/pharmacy #1157, 165, cm, 09/25/22 13:10:00 EST, Height, [...] 04/04/23 15:00:00 EDT, 04/09/22 15:00:00 EDT, [facility]/pharmacy #1157, 167.6, cm, 04/01/22 8:47:00 EDT, [...] kg... Start Date: 10/18/22 Status: Ordered Pen [place], 31 G x 5 mm BD Ultra [...] tablet, 1 Refills, Maintenance, 10/28/22 8:47:00EST, Tablet, [facility]/pharmacy #1157, 165, cm, 10/18/22 16:17:00 EST, Height, 103, kg, 09/19/22 22:30:00EST, Dry Weight Start Date: 10/28/22 Stop Date: 04/26/23 Status: Ordered tamsulosin 0.4 mg oral capsule See Instructions, TAKE 1 CAPSULE BY MOUTH DAILY 30 MINUTES AFTER THE SAME MEAL, # 90 capsule, Refills 1, Instructions Replace Required Details, Route to Pharmacy Electronically, [facility] ST[facility] 31351, 167.6, cm, 02/22/22 7:57:00 EDT, Height Start [...] Team Personnel Name: Nayeli Fernandez RN Position: [facility] RN Member Role: Primary Care Nurse Name: Erin Pendleton RN Position: [facility] RN Member Role: Primary Care Nurse Name: Ruby Hernández RN Position: S RN Member Role: Primary Care Nurse Name: Luciano Hernandez MD Position: [facility] Renal MD Member Role: Lifetime Consulting Physician Address: Address: [address] [place] [address] [address] [facility] [place] [address]- Name: Brennan Tyson MD Position: [facility] Primary Care Physician Member Role: PCP Address: Address: [address] [place] [address]- Name: Roxy Akers RN Position: S RN Member Role: Primary Care Nurse Name: Flores Freeman RN Position: S RN Member Role: Primary Care Nurse Name: Fabiana Hairston RN Position: [facility] RN Member Role: Primary Care Nurse Care Team Related Persons Name: PRABHAKAR JACINTO Address: home [address] [place] [address] Name: RUBY JACINTO Name: JOSE SHAW Address: [place] [address] Name: ANUM DUBOSE Address: home [address] [place] [address]
--- OUTSIDE RECORDS SUMMARY | 2023-08-20 10:42 | XMS_ITS | Continuity of Care Document ---
Author Name Unknown Organization [facility] Adult Address [address] [place] [address]- Care Team Providers Care Bevel Mill Operator Name Role Phone Brennan Tyson MD Primary Care Physician [facility] Date[facility]s): 11/13/22 - 12/13/22 [facility] [address] [place] [address]- Allergies, Adverse Reactions, Alerts Substance Reaction Severity [...] tetanus/diphtheria/pertussis, acel(Tdap) 10/20/13 Given 1Result Comment: [08/12/2018] [facility] [id number] 2Result Comment: [08/12/2018] [facility] [id number] Medications Advair Diskus 500 mcg-50 mcg inhalation [...] 1 Refills, Maintenance, 07/08/22 0:13:00 EDT, [facility] STORE 86386, 167.6, cm, 06/18/22 14:40:00 EDT, Height Start Date: 07/08/22 Status: Ordered buPROPion 150 mg/24 hours (XL) oral tablet, extended release 1 tablet = 150 mg, By Mouth, Every 24 hours, # 14 tablet, 0 Refills, Maintenance, 10/18/22 17:03:00EST, [facility]/pharmacy #1157, Partial fill upon patient request [...] Refills, Maintenance, 10/20/22 11:47:00 EST, ER Tablet, [facility]/pharmacy #1157, Partial fill upon patient request if the prescription is for a... Start Date: 10/20/22 Status: Ordered carvedilol 25 mg oral tablet 1, tablet, By Mouth, 2 times a day, # 180 tablet, Refills 3, Route to Pharmacy Electronically, [facility], 167.6, cm, 11/21/21 9:53:00 EST, Height Start [...] Mouth, Daily, # 45 tablet, 4 Refills, [facility] STORE 13832, 167.6, cm, 04/01/22 8:47:00 EDT, Height Start Date: 06/07/22 Status: Ordered fluticasone 50 mcg/inh nasal spray 2 sprays, Nares, Both, Daily, Maintenance, 08/18/22 17:16:00 EDT, [place], Partial fill upon patient request if the [...] mL, 5 Refills, Maintenance, 10/17/22 11:51:00 EST, [facility], Partial fill upon patient [...] 04/04/23 15:00:00 EDT, 04/09/22 15:00:00 EDT, [facility]/pharmacy #1157, 167.6, cm, 04/01/22 8:47:00 EDT, [...] kg... Start Date: 10/18/22 Status: Ordered Pen [place], 31 G x 5 mm BD Ultra [...] 1 Refills, Maintenance, 10/28/22 8:47:00EST, Tablet, [facility]/pharmacy #1157, 165, cm, 10/18/22 16:17:00 EST, Height, 103, kg, 09/19/22 22:30:00EST, Dry Weight Start Date: 10/28/22 Stop Date: 04/26/23 Status: Ordered tamsulosin 0.4 mg oral capsule See Instructions, TAKE 1 CAPSULE BY MOUTH DAILY 30 MINUTES AFTER THE SAME MEAL, # 90 capsule, Refills 1, Maintenance, 11/08/22 11:58:00 EST, Instructions Replace Required Details, Route to Pharmacy Electronically, [facility], 165, cm, 10/18/22 16... Start Date: 11/08/22 [...] Care Nurse Name: Luciano Hernandez MD Position: [facility] Renal MD Member Role: Lifetime Consulting Physician Address: Address: [address] [facility] [address] [facility] [place] [address]- [place] Name: Brennan Tyson MD Position: [facility] Primary Care Physician Member Role: PCP Address: Address: [address] [place] [address]- Name: Roxy Akers RN Position: S RN Member Role: Primary Care Nurse Name: Flores Freeman RN Position: S RN Member Role: Primary Care Nurse Name: Fabiana Hairston RN Position: S RN Member Role: Primary Care Nurse Care Team Related Persons Name: PRABHAKAR JACINTO Address: home [address] [place] [address] Name: KANG JACINTO Name: JOSE SHAW Address: [place] [address] Name: ANUM DUBOSE Address: home [address] [place] [address]
--- OUTSIDE RECORDS SUMMARY | 2023-08-20 10:42 | XMS_ITS | Continuity of Care Document ---
Author Name Unknown Organization [facility] Adult Address Unknown Care Team Providers Care Orthopaedic Nurse Name Role Phone Brennan Tyosn MD Primary Care Physician Encounter [facility] Date(s): 04/09/22 - 05/09/22 [facility] Allergies, Adverse Reactions, Alerts Substance Reaction [...] tetanus/diphtheria/pertussis, acel(Tdap) 10/20/13 Given 1Result Comment: [08/12/2018] [facility] [id number] 2Result Comment: [08/12/2018] [facility] [id number] Medications Advair Diskus 500 mcg-50 mcg inhalation powder 1 puffs, Inhalation, 2 times a day, # 180 each, 0 Refills, Maintenance, Powder Start Date: 10/23/12 Status: Ordered amLODIPine 10 mg oral tablet 10 mg, 1, tablet, By Mouth, Daily, # 90 tablet, Refills 3, Tot. Refills 3, Maintenance, 08/26/21 13:26:00 EST, Route to Pharmacy Electronically, [facility]/pharmacy #1157, 167.6, cm, 05/07/21 16:16:00 [...] Mouth, Daily, # 90 tablet, 1 Refills, [facility] STORE 58221, 167.6, cm, 11/21/21 9:53:00 EST, Height Start Date: 02/05/22 Status: Ordered carvedilol 25 mg oral tablet 1, tablet, By Mouth, 2 times a day, # 180 tablet, Refills 3, Route to Pharmacy Electronically, [facility] STORE 92076, 167.6, cm, 11/21/21 9:53:00 EST, Height Start [...] capsule, 11 Refills, Maintenance, 04/01/22 9:18:00 EDT, [facility]/pharmacy #1157, Partial fill upon patient request if the prescription isfor a schedule II opioid drug., 167.6, cm, 04/01/22... Start Date: 04/01/22 Status: Ordered Eliquis 5 mg oral tablet 1 tablet, By Mouth, 2 times a day, # 180 tablet, 5 Refills, [facility] ST[facility] 67519, 167.6, cm, 11/21/21 9:53:00 EST, Height Start Date: 02/05/22 Status: Ordered fenofibrate 160 mg oral tablet 0.5 tablet, By Mouth, Daily, # 45 tablet, 3 Refills, Maintenance, 05/28/21 7:19:00 EDT, [facility]/pharmacy #1157, 167.6, cm, 05/07/21 16:16:00 [...] tablet, Refills 1, Route to Pharmacy Electronically, [facility] STORE 83396, 167.6, cm, 11/21/21 9:53:00 EST, Height Start [...] Stop 04/04/23 15:00:00 EDT, 04/09/22 15:00:00 EDT, [facility]/pharmacy #1157, 167.6, cm, 04/01/22 8:47:00 EDT, [...] Start Date: 11/04/18 Status: Ordered Potassium Chloride (Ong-Xmzl-Jti 10) 10 mEq oral tablet, extended release 1 tablet, By Mouth, Daily, # 90 tablet, 3 Refills, [facility] STORE 72708, 167.6, cm, 06/06/21 9:25:00 EDT, Height, 90.7, [...] tablet, 1 Refills, Maintenance, 08/29/21 11:45:00 EST, [facility]/pharmacy #1157, 167.6, cm, 06/06/21 9:25:00 EDT, Height, 90.7, kg, 09/08/19 8:17:00 EST, Dry Weight Start Date: 08/29/21 Status: Ordered rOPINIRole 1 mg oral tablet 2 tablet = 2 mg, By Mouth, Daily at bedtime, # 180 tablet, 1 Refills, Maintenance, 12/22/20 12:40:00 EST, Tablet, [facility]/pharmacy #1157, 167.6, cm, 11/28/20 10:41:00 EST, Height, 90.7, kg, 09/08/19 8:17:00 EST, Dry Weight Start Date: 12/22/20 Stop Date: 06/20/21 Status: Ordered sertraline 100 mg oral tablet 1.5 tablet = 150 mg, By Mouth, Daily, dose increase, # 135 tablet, 3 Refills, Maintenance, 228:32:00 EDT, Tablet, [facility]/pharmacy #1157, dose increase, 167.6, cm, 02/22/22 7:57:00 EDT, Height Start Date: 02/22/22 Stop Date: 02/17/23 Status: Ordered tamsulosin 0.4 mg oral capsule See Instructions, TAKE 1 CAPSULE BY MOUTH DAILY 30 MINUTES AFTER THE SAME MEAL, # 90 capsule, Refills 1, Instructions Replace Required Details, Route to Pharmacy Electronically, [facility] STORE 02390, 167.6, cm, 02/22/22 7:57:00 EDT, Height Start [...]
--- OUTSIDE RECORDS SUMMARY | 2023-08-20 10:42 | XMS_ITS | Continuity of Care Document ---
Author Name Unknown Organization [facility] Address [address] [place] [address]- Care Team Providers Care Sap Business Analyst Name Role Phone Brennan Tyson MD Primary Care Physician [phone] [facility] Date[facility]s): 11/29/21 - 12/29/21 [facility] [address] [place] [address] Attending Physician: Joy Dove Admitting Physician: Admtr, [id number] Referring Physician: Admtr, [id number] Allergies, Adverse Reactions, [...] tetanus/diphtheria/pertussis, acel(Tdap) 10/20/13 Given 1Result Comment: [08/12/2018] [facility] [id number] 2Result Comment: [08/12/2018] [facility] [id number] Medications Advair Diskus 500 mcg-50 mcg inhalation powder 1 puffs, Inhalation, 2 times a day, # 180 each, 0 Refills, Maintenance, Powder Start Date: 10/23/12 Status: Ordered amLODIPine 10 mg oral tablet 10 mg, 1, tablet, By Mouth, Daily, # 90 tablet, Refills 3, Tot. Refills 3, Maintenance, 08/26/21 13:26:00 EST, Route to Pharmacy Electronically, [facility]/pharmacy #1157, 167.6, cm, 05/07/21 16:16:00 EDT, [...] 11 Refills, Maintenance, 02/28/21 15:05:00 EDT, Tablet, [facility]/pharmacy #1157, Partial fill upon patient request if the prescription is for a schedule II opioid drug., 167.6, cm, 02/07/21 9:57:00 EDT, Heigh... Start Date: 02/28/21 Status: Ordered carvedilol 25 mg oral tablet 25 mg, 1, tablet, By Mouth, 2 times a day, # 60 tablet, Refills 11, Tot. Refills 11, Maintenance, 02/28/21 16:34:00 EDT, Route to Pharmacy Electronically, [facility]/pharmacy #1157, 167.6, cm, 02/07/21 9:57:00 EDT, [...] Refills, Maintenance, 12/25/20 9:10:00 EST, [facility], 167.6, cm, 11/28/20 10:41:00 EST, Height, 90.7, kg, 09/08/19 8:17:00 EST, Dry Weight Start Date: 12/25/20 Status: Ordered fenofibrate 160 mg oral tablet 0.5 tablet, By Mouth, Daily, # 45 tablet, 3 Refills, Maintenance, 05/28/21 7:19:00 EDT, [facility]/pharmacy #1157, 167.6, cm, 05/07/21 16:16:00 EDT, [...] 08/29/21 11:45:00 EST, Route to Pharmacy Electronically, [facility]/pharmacy #1157, 167.6, cm, 06/06/21 9:25:00 EDT, Height, [...] Stop 02/25/22 11:45:00 EDT, 08/29/21 11:45:00 EST, [facility]/pharmacy #1157, 167.6, cm, 06/06/21 9:25:00 EDT, Height, [...] Start Date: 11/04/18 Status: Ordered Potassium Chloride (Ujn-Nggl-Kbk 10) 10 mEq oral tablet, extended release 1 tablet, By Mouth, Daily, # 90 tablet, 3 Refills, [facility], 167.6, cm, 06/06/21 9:25:00 EDT, Height, 90.7, [...] 3 Refills, Maintenance, 05/29/21 14:34:00 EDT, Tablet, [facility]/pharmacy #1157, dose increase, 167.6, cm, 05/07/21 16:16:00 EDT, Height, 90.7, kg, 198:17:00 EST, Dry Weight Start Date: 05/29/21 Stop Date: 05/24/22 Status: Ordered tamsulosin 0.4 mg oral capsule See Instructions, TAKE 1 CAPSULE BY MOUTH DAILY 30 MINUTES AFTER THE SAME MEAL, # 90 capsule, Refills 1, Instructions Replace Required Details, Route to Pharmacy Electronically, [facility] STORE 57679, 167.6, cm, 06/06/21 9:25:00 EDT, Height Start [...]
--- OUTSIDE RECORDS SUMMARY | 2023-08-20 10:42 | XMS_ITS | Continuity of Care Document ---
Author Name Unknown Organization [facility] Address [address] [place] [address]- Care Team Providers Care Chlorine Plant Operator Name Role Phone Brennan Tyson MD Primary Care Physician [facility]counter [facility] Date[facility]s): 02/21/23 - 02/28/23 [facility] [address] [place] [address]- Attending Physician: Brennan Tyson MD Allergies, Adverse [...] Given 1Result Comment: [08/12/2018] [facility] [facility] [id number] 2Result Comment: [08/12/2018] [facility] [id number] Medications Advair Diskus 500 mcg-50 mcg inhalation [...] tablet, 1 Refills, Maintenance, 02/22/23 10:19:00 EDT, [facility], 165, cm, 02/21/23 9:40:00 EDT, Height, 85, kg, 01/15/23 14:55:00 EDT, Dry Weight Start Date: 02/22/23 Status: Ordered bumetanide 2 mg oral tablet 1 tablet = 2 mg, By Mouth, Daily, # 14 tablet, 0 Refills, Maintenance, 02/28/23 9:45:00 EDT, [facility]/pharmacy #1157, Partial fill upon patient request if the prescription is for a schedule II opioid drug., 165, cm, 02/21/23 9:40:00 EDT, Height, 85, kg, 03... Start Date: 02/28/23 Stop Date: 03/14/23 Status: Ordered carvedilol 25 mg oral tablet 1, tablet, By Mouth, 2 times a day, # 180 tablet, Refills 3, Maintenance, 02/26/23 16:11:00 EDT, Route to Pharmacy Electronically, [facility], 165, cm, 02/21/23 9:40:00 EDT, Height, 85, [...] Mouth, Daily, # 45 tablet, 4 Refills, [facility], 167.6, cm, 04/01/22 8:47:00 EDT, Height Start Date: 06/07/22 Status: Ordered fluticasone 50 mcg/inh nasal spray 2 sprays, Nares, Both, Daily, Maintenance, 08/18/22 17:16:00 EDT, [place], Partial fill upon patient request if the prescription is for a schedule II opioid drug. Start Date: 08/18/22 Status: Ordered heparin 5000 u/ml injectable solution = 5,000 units, Subcutaneous Injection, 3 times a day, # 90 mL, 5 Refills, Maintenance, 10/17/22 11:51:00 EST, [facility], Partial fill upon patient [...] 30 tablet, 1 Refills, Maintenance,02/21/23 10:02:00 EDT, [facility]/pharmacy #1157, Partial fill upon patient request [...] Stop 04/04/23 15:00:00 EDT, 04/09/22 15:00:00 EDT, [facility], 167.6, cm, 04/01/22 8:47:00 EDT, Height [...] kg... Start Date: 10/18/22 Status: Ordered [place], 31 G x 5 mm BD Ultra [...] Refills, Maintenance, 02/27/23 10:11:00 EDT, [facility], 165, cm, 02/21/23 9:40:00 EDT, Height, 85, kg, 01/15/23 14:55:00 EDT, Dry Weight Start Date: 02/27/23 Status: Ordered tamsulosin 0.4 mg oral capsule See Instructions, TAKE 1 CAPSULE BY MOUTH DAILY 30 MINUTES AFTER THE SAME MEAL, # 90 capsule, Refills 1, Maintenance, 11/08/22 11:58:00 EST, Instructions Replace Required Details, Route to Pharmacy Electronically, [facility], 165, cm, 10/18/22 16... Start Date: 11/08/22 [...] Active 1Per chart review meeting GFR criteria Vital Signs Most recent to oldest [Reference Range]: 1 Height 165 cm (02/21/23 9:40 AM) Weight 88.4 kg (02/21/23 9:40 AM) Oxygen Saturation [94-100 %] 94 % (02/21/23 9:40 AM) Pulse Rate [55-90 bpm] 99 bpm *H* (02/21/23 9:40 AM) Body Mass Index [18.5-24.99 kg/m2] 32.47 kg/m2 *>HHI* (02/21/23 9:40 AM) Blood Pressure [90-138/55-84 mm Hg] 132/ 78mm Hg (02/21/23 9:40 AM) Blood pressure sites Arm, left (02/21/23 9:40 AM) Social History Social History Type Response Smoking Status Former smoker; Type: Cigarettes; Other: quit 2006; entered on: 09/19/17 Sex Patient Care team information Care Team Personnel Name: Nayeli Fernandez RN Position: S RN Member Role: Primary Care Nurse Name: Erin Pendleton RN Position: S RN Member Role: Primary Care Nurse Name: Luciano Hernandez MD Position: [facility] Renal MD Member Role: Lifetime Consulting Physician Address: Address: [address] [place] [address] [address] [facility] [place] [address]- Name: Brennan Tyson MD Position: [facility] Primary Care Physician Member Role: PCP Address: Address: [address] [place] [address]- Name: Roxy Akers RN Position: S RN Member Role: Primary Care Nurse Name: Flores Freeman RN Position: [facility] RN Member Role: Primary Care Nurse Care Team Related Persons Name: PRABHAKAR JACINTO Address: home [address] [place] [address] Name: KANG JACINTO Name: JOSE SHAW Address: [place] [address] Name: ANUM DUBOSE Address: home [address] [place] [id number]
--- OUTSIDE RECORDS SUMMARY | 2023-08-20 10:42 | XMS_ITS | Continuity of Care Document ---
Author Name Unknown Organization [facility] Address Unknown Care Team Providers Care Lineworker Name Role Phone Brennan Tyson MD Primary Care Physician [place] [facility] [place] 04/11/22 - 05/11/[address] [facility] Allergies, Adverse Reactions, Alerts Substance Reaction [...] [facility] [id number] 2Result Comment: [08/12/2018] [facility] [id number] Medications Advair Diskus 500 mcg-50 mcg inhalation powder 1 puffs, Inhalation, 2 times a day, # 180 each, 0 Refills, Maintenance, Powder Start Date: 10/23/12 Status: Ordered amLODIPine 10 mg oral tablet 10 mg, 1, tablet, By Mouth, Daily, # 90 tablet, Refills 3, Tot. Refills 3, Maintenance, 08/26/21 13:26:00 EST, Route to Pharmacy Electronically, [facility]/pharmacy #1157, 167.6, cm, 05/07/21 16:16:00 [...] Mouth, Daily, # 90 tablet, 1 Refills, [facility] STORE 68707, 167.6, cm, 11/21/21 9:53:00 EST, Height Start Date: 02/05/22 Status: Ordered carvedilol 25 mg oral tablet 1, tablet, By Mouth, 2 times a day, # 180 tablet, Refills 3, Route to Pharmacy Electronically, [facility] STORE 58676, 167.6, cm, 11/21/21 9:53:00 EST, Height Start [...] capsule, 11 Refills, Maintenance, 04/01/22 9:18:00 EDT, [facility]/pharmacy #1157, Partial fill upon patient request if the prescription isfor a schedule II opioid drug., 167.6, cm, 04/01/22... Start Date: 04/01/22 Status: Ordered Eliquis 5 mg oral tablet 1 tablet, By Mouth, 2 times a day, # 180 tablet, 5 Refills, [facility] STORE 80112, 167.6, cm, 11/21/21 9:53:00 EST, Height Start Date: 02/05/22 Status: Ordered fenofibrate 160 mg oral tablet 0.5 tablet, By Mouth, Daily, # 45 tablet, 3 Refills, Maintenance, 05/28/21 7:19:00 EDT, [facility]/pharmacy #1157, 167.6, cm, 05/07/21 16:16:00 [...] tablet, Refills 1, Route to Pharmacy Electronically, [facility] STORE 29114, 167.6, cm, 11/21/21 9:53:00 EST, Height Start [...] Stop 04/04/23 15:00:00 EDT, 04/09/22 15:00:00 EDT, [facility]/pharmacy #1157, 167.6, cm, 04/01/22 8:47:00 [...] Start Date: 11/04/18 Status: Ordered Potassium Chloride (Jcd-Frsi-Dte 10) 10 mEq oral tablet, extended release 1 tablet, By Mouth, Daily, # 90 tablet, 3 Refills, [facility] STORE 86261, 167.6, cm, 06/06/21 9:25:00 EDT, Height, 90.7, [...] tablet, 1 Refills, Maintenance, 08/29/21 11:45:00 EST, [facility]/pharmacy #1157, 167.6, cm, 06/06/21 9:25:00 EDT, Height, 90.7, kg, 09/08/19 8:17:00 EST, Dry Weight Start Date: 08/29/21 Status: Ordered rOPINIRole 1 mg oral tablet 2 tablet = 2 mg, By Mouth, Daily at bedtime, # 180 tablet, 1 Refills, Maintenance, 12/22/20 12:40:00 EST, Tablet, [facility]/pharmacy #1157, 167.6, cm, 11/28/20 10:41:00 EST, Height, 90.7, kg, 09/08/19 8:17:00 EST, Dry Weight Start Date: 12/22/20 Stop Date: 06/20/21 Status: Ordered sertraline 100 mg oral tablet 1.5 tablet = 150 mg, By Mouth, Daily, dose increase, # 135 tablet, 3 Refills, Maintenance, 228:32:00 EDT, Tablet, [facility]/pharmacy #1157, dose increase, 167.6, cm, 02/22/22 7:57:00 EDT, Height Start Date: 02/22/22 Stop Date: 02/17/23 Status: Ordered tamsulosin 0.4 mg oral capsule See Instructions, TAKE 1 CAPSULE BY MOUTH DAILY 30 MINUTES AFTER THE SAME MEAL, # 90 capsule, Refills 1, Instructions Replace Required Details, Route to Pharmacy Electronically, [facility] 64705, 167.6, cm, 02/22/22 7:57:00 EDT, Height Start [...]
--- OUTSIDE RECORDS SUMMARY | 2023-08-20 10:42 | XMS_ITS | Continuity of Care Document ---
Author Name Unknown Organization [facility] Address [address] [place] [address]- Care Team Providers Care Merchandise Planning Manager Name Role Phone Brennan Tyson MD Primary Care Physician [facility] Date[facility]s): 04/24/23 - 05/24/23 [facility] [address] [place] [address]- Allergies, Adverse Reactions, Alerts Substance Reaction Severity [...] 1Result Comment: [08/12/2018] [facility] [id number] 2Result Comment: [08/12/2018] [facility] [id number] Medications Advair Diskus 500 mcg-50 mcg inhalation [...] 03/27/23 10:47:00 EDT, Route to Pharmacy Electronically, [facility] [place] [facility], Partial fill upon patient request if the prescription is for a schedule II opioi... Start Date: 03/27/23 Status: Ordered atorvastatin 40 mg oral tablet 1 tablet, By Mouth, Daily, # 90 tablet, 1 Refills, Maintenance, 02/22/23 10:19:00 EDT, [facility] STORE 10304, 165, cm, 02/21/23 9:40:00 EDT, Height, 85, kg, 01/15/23 14:55:00 EDT, Dry Weight Start Date: 02/22/23 Status: Ordered bumetanide 1 mg oral tablet 1 mg, 1, tablet, By Mouth, Daily, dose reduction, # 30 tablet, Refills 5, Tot. Refills 5, Maintenance, 03/13/23 11:25:00 EDT, Route to Pharmacy Electronically, [facility]/pharmacy #1157, Partial fill upon patient request if the prescription is for a schedule... Start Date: 03/13/23 Status: Ordered carvedilol 25 mg oral tablet 1, tablet, By Mouth, 2 times a day, # 180 tablet, Refills 3, Maintenance, 02/26/23 16:11:00 EDT, Route to Pharmacy Electronically, [facility], 165, cm, 02/21/23 9:40:00 EDT, Height, 85, [...] # 45 tablet, 4 Refills, [facility], 167.6, cm, 04/01/22 8:47:00 EDT, Height Start Date: 06/07/22 Status: Ordered fluticasone 50 mcg/inh nasal spray 2 sprays, Nares, Both, Daily, Maintenance, 08/18/22 17:16:00 EDT, [place], Partial fill upon patient request if [...] 30 tablet, 1 Refills, Maintenance,02/21/23 10:02:00 EDT, [facility]/pharmacy #1157, Partial fill upon [...] kg... Start Date: 10/18/22 Status: Ordered Pen [place], 31 G x 5 mm BD Ultra [...] 03/27/23 10:46:00 EDT, Route to Pharmacy Electronically, [facility], Partial fill upon patient [...] tablet, 1 Refills, Maintenance, 02/27/23 10:11:00 EDT, [facility] STORE 93199, 165, cm, 02/21/23 9:40:00 EDT, Height, 85, kg, 01/15/23 14:55:00 EDT, Dry Weight Start Date: 02/27/23 Status: Ordered tamsulosin 0.4 mg oral capsule See Instructions, TAKE 1 CAPSULE BY MOUTH DAILY 30 MINUTES AFTER THE SAME MEAL, # 90 capsule, Refills 1, Tot. Refills 1, Maintenance, 05/22/23 9:00:00 EDT, Instructions Replace Required Details, Route to Pharmacy Electronically, [facility]/pharmacy #1157, 16... Start Date: [...] Care team information Care Team Personnel Name: Sonny Silverman RN Position: [facility] RN Member Role: Primary Care Nurse Name: Luciano Hernandez MD Position: [facility] Renal MD Member Role: Lifetime Consulting Physician Address: Address: [address] [place] [address] [address] [facility] [place] [address]- Name: Brennan Tyson MD Position: [facility] Physician - Primary Care Member Role: PCP Address: Address: [address] [place] [address]- [place] Name: Teresa Boyd [place] Position: [facility] DAPHNE Stove Installer Member Role: Broadcast Systems Engineer Name: Roxy Akers RN Position: [facility] [place] Nurse Member Role: Primary Care Nurse Name: Flores Freeman RN Position: [facility] RN Member Role: Primary Care Nurse Care Team Related Persons Name: PRABHAKAR JACINTO Address: [address] [address] Name: KANG JACINTO Name: JOSE SHAW Address: [place] [address] Name: ANUM DUBOSE Address: home [address] [place] [id number]
--- OUTSIDE RECORDS SUMMARY | 2023-08-20 10:42 | XMS_ITS | Continuity of Care Document ---
Author Name Unknown Organization [facility] Address [address] [place] [address]- Care Team Providers Care First Aid Instructor Name Role Phone Marbella RINCON, Brennan Primary Care Physician [facility]): 02[facility]28[facility]21 - 03/30/21 [facility] [address] [place] [address]- Allergies, Adverse Reactions, Alerts Substance Reaction Severity [...] tetanus/diphtheria/pertussis, acel(Tdap) 10/20/13 Given 1Result Comment: [08/12/2018] [facility] [id number] 2Result Comment: [08/12/2018] [facility] [id number] Medications Advair Diskus 500 mcg-50 mcg inhalation powder 1 puffs, Inhalation, 2 times a day, # 180 each, 0 Refills, Maintenance, Powder Start Date: 10/23/12 Status: Ordered amLODIPine 10 mg oral tablet 10 mg, 1, tablet, By Mouth, Daily, # 90 tablet, Refills 3, Tot. Refills 3, Maintenance, 06/02/20 13:26:00 EDT, Route to Pharmacy Electronically, [facility]/pharmacy #1157, 167.6, cm, 03/27/20 8:14:00 EDT, Height, [...] 11 Refills, Maintenance, 02/28/21 15:05:00 EDT, Tablet, [facility]/pharmacy #1157, Partial fill upon patient request if the prescription is for a schedule II opioid drug., 167.6, cm, 02/07/21 9:57:00 EDT, Heigh... Start Date: 02/28/21 Status: Ordered carvedilol 25 mg oral tablet 25 mg, 1, tablet, By Mouth, 2 times a day, # 60 tablet, Refills 11, Tot. Refills 11, Maintenance, 02/28/21 16:34:00 EDT, Route to Pharmacy Electronically, [facility]/pharmacy #1157, 167.6, cm, 02/07/21 9:57:00 EDT, Height, [...] tablet, 5 Refills, Maintenance, 12/25/20 9:10:00 EST, [facility] STORE 91004, 167.6, cm, 11/28/20 10:41:00 EST, Height, 90.7, [...] 06/02/20 13:26:00 EDT, Route to Pharmacy Electronically, [facility]/pharmacy #1157, 167.6, cm, 03/27/20 8:14:00 EDT,Height, 90.7, kg, 09/08/19 8:17:00 EST, Dry Weight Start Date: 06/02/20 Status: Ordered LORazepam 0.5 mg oral tablet 1 tablet = 0.5 mg, By Mouth, Daily, PRN as needed for anxiety, for 30 days, # 30 tablet, 2 Refills,Acute 06/26/21 15:17:00 EDT, 03/28/21 15:17:00 EDT, Tablet, [facility]/pharmacy #1157, 167.6, cm, :57:00 EDT, Height, 90.7, [...] capsule, 0 Refills, Maintenance, 02/01/21 7:55:00 EDT, [facility] STORE 94210, 167.6, cm, 01/29/21 10:15:00 EDT, Height, 90.7, [...] tablet, 11 Refills, Maintenance, 08/31/20 11:42:00 EST, [facility]/pharmacy #1157, 167.6, cm, 03/27/20 8:14:00 EDT, Height, [...] Maintenance, 12/22/20 12:40:00 EST, Tablet, [facility]/pharmacy #1157, 167.6, cm, 11/28/20 10:41:00 EST, Height, 90.7, kg, 09/08/19 8:17:00 EST, Dry Weight Start Date: 12/22/20 Stop Date: 06/20/21 Status: Ordered sertraline 100 mg oral tablet 2 tablet = 200 mg, By Mouth, Daily, DOSE INCREASE, # 60 tablet, 11 Refills, Maintenance, 01/08/21 14:15:00 EDT, Tablet, [facility]/pharmacy #1157, dose increase, 167.6, cm, 01/08/21 13:53:00 EDT, Height, 90.7, kg, 09/08/19 8:17:00 EST, Dry Weight Start Date: 01/08/21 Stop Date: 01/03/22 Status: Ordered tamsulosin 0.4 mg oral capsule 0.4 mg, 1, capsule, By Mouth, Daily, 30 minutes after the same meal, # 90 capsule, Refills 3, Tot. Refills 3, Maintenance, 10/25/20 7:20:00 EST, Route to Pharmacy Electronically, [facility]/pharmacy #1157, 167.6, cm, 03/27/20 8:14:00 EDT, Height, [...]
--- OUTSIDE RECORDS SUMMARY | 2023-08-20 10:43 | XMS_ITS | Continuity of Care Document ---
Author Name Unknown Organization [facility] Address [address] [place] [address]- Care Team Providers Care Satellite Specialist Name Role Phone Brennan Tyson MD Primary Care Physician [facility]): 02/11/23 - 03/13/23 [facility] [address] [place] [address]- Allergies, Adverse Reactions, Alerts Substance Reaction Severity [...] acel(Tdap) 10/20/13 Given 1Result Comment: [08/12/2018] [facility] [id number] 2Result Comment: [08/12/2018] [facility] [id number] Medications Advair Diskus 500 mcg-50 mcg inhalation [...] tablet, 1 Refills, Maintenance, 02/22/23 10:19:00 EDT, [facility] STORE 63136, 165, cm, 02/21/23 9:40:00 EDT, Height, 85, kg, 01/15/23 14:55:00 EDT, Dry Weight Start Date: 02/22/23 Status: Ordered bumetanide 1 mg oral tablet 1 mg, 1, tablet, By Mouth, Daily, dose reduction, # 30 tablet, Refills 5, Tot. Refills 5, Maintenance, 03/13/23 11:25:00 EDT, Route to Pharmacy Electronically, [facility]/pharmacy #1157, Partial fill upon patient request if the prescription is for a schedule... Start Date: 03/13/23 Status: Ordered carvedilol 25 mg oral tablet 1, tablet, By Mouth, 2 times a day, # 180 tablet, Refills 3, Maintenance, 02/26/23 16:11:00 EDT, Route to Pharmacy Electronically, [facility] STORE 04718, 165, cm, 02/21/23 9:40:00 EDT, Height, 85, [...] Mouth, Daily, # 45 tablet, 4 Refills, [facility] STORE 01803, 167.6, cm, 04/01/22 8:47:00 EDT, Height Start Date: 06/07/22 Status: Ordered fluticasone 50 mcg/inh nasal spray 2 sprays, Nares, Both, Daily, Maintenance, 08/18/22 17:16:00 EDT, [place], Partial fill upon patient request if the prescription is for a schedule II opioid drug. Start Date: 08/18/22 Status: Ordered heparin 5000 u/ml injectable solution = 5,000 units, Subcutaneous Injection, 3 times a day, # 90 mL, 5 Refills, Maintenance, 10/17/22 11:51:00 EST, [facility], Partial fill upon patient [...] 30 tablet, 1 Refills, Maintenance,02/21/23 10:02:00 EDT, [facility]/pharmacy #1157, Partial fill upon patient request [...] kg... Start Date: 10/18/22 Status: Ordered Pen [place], 31 G x 5 mm BD Ultra [...] Refills, Maintenance, 02/27/23 10:11:00 EDT, [facility], 165, cm, 02/21/23 9:40:00 EDT, Height, 85, kg, 01/15/23 14:55:00 EDT, Dry Weight Start Date: 02/27/23 Status: Ordered tamsulosin 0.4 mg oral capsule See Instructions, TAKE 1 CAPSULE BY MOUTH DAILY 30 MINUTES AFTER THE SAME MEAL, # 90 capsule, Refills 1, Maintenance, 11/08/22 11:58:00 EST, Instructions Replace Required Details, Route to Pharmacy Electronically, [facility], 165, cm, 10/18/22 16... Start Date: 11/08/22 [...] Care Nurse Name: Luciano Hernandez MD Position: [facility] MD Member Role: Lifetime Consulting Physician Address: Address: [address] [facility] [place] [address]- [place] Name: Brennan Tyson MD Position: [facility] Physician - Primary Care Member Role: PCP Address: Address: [address] [place] [address]- [place] Name: Roxy Akers RN Position: S RN Member Role: Primary Care Nurse Name: Flores Freeman RN Position: S RN Member Role: Primary Care Nurse Care Team Related Persons Name: PRABHAKAR JACINTO Address: home [address] [place] [address] Name: KANG JACINTO Name: JOSE SHAW Address: [place] [address] Name: ANUM DUBOSE Address: home [address] [place] [address]
--- OUTSIDE RECORDS SUMMARY | 2023-08-20 10:43 | XMS_ITS | Continuity of Care Document ---
Author Name Unknown Organization [facility] Address [address] [place] [address]- Care Team Providers Care Reactor Service Operator Name Role Phone Marbella RINCON, Brennan Primary Care Physician [phone] [facility] 04[facility]21 - 05/02/21 [facility] [address] [place] [address]- Allergies, Adverse Reactions, Alerts Substance Reaction Severity [...] Given 1Result Comment: [08/12/2018] [facility] [id number] 2Result Comment: [08/12/2018] [facility] [id number] Medications Advair Diskus 500 mcg-50 mcg inhalation powder 1 puffs, Inhalation, 2 times a day, # 180 each, 0 Refills, Maintenance, Powder Start Date: 10/23/12 Status: Ordered amLODIPine 10 mg oral tablet 10 mg, 1, tablet, By Mouth, Daily, # 90 tablet, Refills 3, Tot. Refills 3, Maintenance, 06/02/20 13:26:00 EDT, Route to Pharmacy Electronically, [facility]/pharmacy #1157, 167.6, cm, 03/27/20 8:14:00 EDT, [...] 11 Refills, Maintenance, 02/28/21 15:05:00 EDT, Tablet, [facility]/pharmacy #1157, Partial fill upon patient request if the prescription is for a schedule II opioid drug., 167.6, cm, 02/07/21 9:57:00 EDT, Heigh... Start Date: 02/28/21 Status: Ordered carvedilol 25 mg oral tablet 25 mg, 1, tablet, By Mouth, 2 times a day, # 60 tablet, Refills 11, Tot. Refills 11, Maintenance, 02/28/21 16:34:00 EDT, Route to Pharmacy Electronically, [facility]/pharmacy #1157, 167.6, cm, 02/07/21 9:57:00 EDT, [...] tablet, 5 Refills, Maintenance, 12/25/20 9:10:00 EST, [facility] STORE 39975, 167.6, cm, 11/28/20 10:41:00 EST, Height, 90.7, [...] 06/02/20 13:26:00 EDT, Route to Pharmacy Electronically, [facility]/pharmacy #1157, 167.6, cm, 03/27/20 8:14:00 EDT,Height, 90.7, kg, 09/08/19 8:17:00 EST, Dry Weight Start Date: 06/02/20 Status: Ordered LORazepam 0.5 mg oral tablet 1 tablet = 0.5 mg, By Mouth, Daily, PRN as needed for anxiety, for 30 days, # 30 tablet, 2 Refills,Acute 06/26/21 15:17:00 EDT, 03/28/21 15:17:00 EDT, Tablet, [facility]/pharmacy #1157, 167.6, cm, :57:00 EDT, Height, 90.7, [...] capsule, 0 Refills, Maintenance, 04/27/21 8:50:00 EDT, [facility], 167.6, cm, 04/10/21 12:50:00 EDT, Height, [...] tablet, 11 Refills, Maintenance, 08/31/20 11:42:00 EST, [facility]/pharmacy #1157, 167.6, cm, 03/27/20 8:14:00 EDT, [...] 1 Refills, Maintenance, 12/22/20 12:40:00 EST, Tablet, [facility]/pharmacy #1157, 167.6, cm, 11/28/20 10:41:00 EST, Height, 90.7, kg, 09/08/19 8:17:00 EST, Dry Weight Start Date: 12/22/20 Stop Date: 06/20/21 Status: Ordered sertraline 100 mg oral tablet 2 tablet = 200 mg, By Mouth, Daily, DOSE INCREASE, # 60 tablet, 11 Refills, Maintenance, 01/08/21 14:15:00 EDT, Tablet, [facility]/pharmacy #1157, dose increase, 167.6, cm, 01/08/21 13:53:00 EDT, Height, 90.7, kg, 09/08/19 8:17:00 EST, Dry Weight Start Date: 01/08/21 Stop Date: 01/03/22 Status: Ordered tamsulosin 0.4 mg oral capsule 0.4 mg, 1, capsule, By Mouth, Daily, 30 minutes after the same meal, # 90 capsule, Refills 3, Tot. Refills 3, Maintenance, 10/25/20 7:20:00 EST, Route to Pharmacy Electronically, [facility]/pharmacy #1157, 167.6, cm, 03/27/20 8:14:00 EDT, [...]
--- OUTSIDE RECORDS SUMMARY | 2023-08-20 10:43 | XMS_ITS | Continuity of Care Document ---
Author Name Unknown Organization [facility] Address [address] [place] [address]- Care Team Providers Care Double End Chucking Machine Operator Name Role Phone Brennan Tyson MD Primary Care Physician [phone] Encounter [facility] Date(s): 05/22/23 - 06/21/23 [facility] [address] [place] [address]- Allergies, Adverse Reactions, Alerts Substance Reaction Severity [...] acel(Tdap) 10/20/13 Given 1Result Comment: [08/12/2018] [facility] [id number] 2Result Comment: [08/12/2018] [facility] [id number] Medications Advair Diskus 500 mcg-50 mcg inhalation [...] 03/27/23 10:47:00 EDT, Route to Pharmacy Electronically, [facility], Partial fill upon patient request if the prescription is for a schedule II opioi... Start Date: 03/27/23 Status: Ordered atorvastatin 40 mg oral tablet 1 tablet, By Mouth, Daily, # 90 tablet, 1 Refills, Maintenance, 02/22/23 10:19:00 EDT, [facility] STORE 12360, 165, cm, 02/21/23 9:40:00 EDT, Height, 85, kg, 01/15/23 14:55:00 EDT, Dry Weight Start Date: 02/22/23 Status: Ordered bumetanide 1 mg oral tablet 1 mg, 1, tablet, By Mouth, Daily, dose reduction, # 30 tablet, Refills 5, Tot. Refills 5, Maintenance, 03/13/23 11:25:00 EDT, Route to Pharmacy Electronically, [facility]/pharmacy #1157, Partial fill upon patient request if the prescription is for a schedule... Start Date: 03/13/23 Status: Ordered carvedilol 25 mg oral tablet 1, tablet, By Mouth, 2 times a day, # 180 tablet, Refills 3, Maintenance, 02/26/23 16:11:00 EDT, Route to Pharmacy Electronically, [facility], 165, cm, 02/21/23 9:40:00 EDT, Height, 85, [...] Refills, Maintenance, 06/10/23 0:49:00 EDT, [facility], 167.6, cm, 04/11/23 8:40:00 EDT, Height, 85, kg, 01/15/23 14:55:00 EDT, Dry Weight Start Date: 06/10/23 Status: Ordered fluticasone 50 mcg/inh nasal spray 2 sprays, Nares, Both, Daily, Maintenance, 08/18/22 17:16:00 EDT, [place], Partial fill upon patient request if the [...] 30 tablet, 1 Refills, Maintenance,02/21/23 10:02:00 EDT, [facility]/pharmacy #1157, Partial fill upon patient [...] capsule, 3 Refills, Maintenance, 06/19/23 16:44:00 EDT, [facility] STORE 76447, 167.6, cm, 04/11/23 8:40:00 EDT, Height, 85, [...] kg... Start Date: 10/18/22 Status: Ordered Pen Bradford, 31 G x 5 mm BD Ultra [...] 03/27/23 10:46:00 EDT, Route to Pharmacy Electronically, [facility], Partial fill upon patient [...] tablet, 1 Refills, Maintenance, 02/27/23 10:11:00 EDT, [facility] STORE 05139, 165, cm, 02/21/23 9:40:00 EDT, Height, 85, kg, 01/15/23 14:55:00 EDT, Dry Weight Start Date: 02/27/23 Status: Ordered sertraline 100 mg oral tablet 1.5 tablet, By Mouth, Daily, # 135 tablet, 3 Refills, Maintenance, 06/19/23 16:44:00 EDT, [id number], 167.6, cm, 04/11/23 8:40:00 EDT, Height, 85, kg, 01/15/23 14:55:00 EDT, Dry Weight Start Date: 06/19/23 Status: Ordered tamsulosin 0.4 mg oral capsule See Instructions, TAKE 1 CAPSULE BY MOUTH DAILY 30 MINUTES AFTER THE SAME MEAL, # 90 capsule, Refills 1, Tot. Refills 1, Maintenance, 05/22/23 9:00:00 EDT, Instructions Replace Required Details, Route to Pharmacy Electronically, [facility]/pharmacy #2988, 16... Start Date: 05/22/23 Status: Ordered traZODone [...] Team Personnel Name: Sonny Silverman RN Position: [facility] RN Member Role: Primary Care Nurse Name: Luciano Hernandez MD Position: [facility] Renal MD Member Role: Lifetime Consulting Physician Address: Address: [address] [facility] [place] [address]- [place] Name: Bernnan Tyson MD Position: [facility] Physician - Primary Care Member Role: PCP Address: Address: [address] [place] [address]- [place] Name: Teresa Boyd [place] Position: [facility] MA Creative/Art Director Member Role: Hyperion Analyst Name: Roxy Akers RN Position: [facility] Nurse Member Role: Primary Care Nurse Name: Flores Freeman RN Position: [facility] RN Member Role: Primary Care Nurse Care Team Related Persons Name: PRABHAKAR JACINTO Address: home [address] [place] [address] Name: KANG JACINTO Name: JOSE SHAW Address: [place] [address] Name: ANUM DUBOSE Address: home [address] [place] [address]
--- OUTSIDE RECORDS SUMMARY | 2023-08-20 10:43 | XMS_ITS | Continuity of Care Document ---
Author Name Unknown Organization [facility] Address Unknown Care Team Providers Care Business Team Leader Name Role Phone Brennan Tyson MD Primary Care Physician [phone] Encounter [facility] Date(s): 04/01/22 - 05/31/22 [facility] Attending Physician: Brennan Tyson MD Allergies, [...] 23-valent vaccine 07/22/11 Given pneumococcal 13-valent vaccine 7/19/16 Given Zoster Vaccine Live 07/27/15 Given tetanus/diphtheria/pertussis, acel(Tdap) 10/20/13 Given 1Result Comment: [08/12/2018] [facility] [id number] 2Result Comment: [08/12/2018] [facility] [id number] Medications Advair Diskus 500 mcg-50 mcg inhalation powder 1 puffs, Inhalation, 2 times a day, # 180 each, 0 Refills, Maintenance, Powder Start Date: 10/23/12 Status: Ordered amLODIPine 10 mg oral tablet 10 mg, 1, tablet, By Mouth, Daily, # 90 tablet, Refills 3, Tot. Refills 3, Maintenance, 08/26/21 13:26:00 EST, Route to Pharmacy Electronically, [facility]/pharmacy #1157, 167.6, cm, 05/07/21 16:16:00 EDT, Height, 90.7, kg, 09/08/19 8:17:00 EST, Dry Weight Start Date: 08/26/21 Status: Ordered aspirin 81 mg oral delayed release tablet 81 mg, 1, tablet, By Mouth, Daily, # 30 tablet, Refills 0, Maintenance, 12/27/18 10:46:04 EDT Start Date: 12/27/18 Status: Ordered atorvastatin 40 mg oral tablet 1 tablet, By Mouth, Daily, # 90 tablet, 1 Refills, [facility] STORE 04366, 167.6, cm, 11/21/21 9:53:00 EST, Height Start Date: 02/05/22 Status: Ordered carvedilol 25 mg oral tablet 1, tablet, By Mouth, 2 times a day, # 180 tablet, Refills 3, Route to Pharmacy Electronically, [facility] STORE 07716, 167.6, cm, 11/21/21 9:53:00 EST, Height Start [...] capsule, 11 Refills, Maintenance, 04/01/22 9:18:00 EDT, [facility]/pharmacy #1157, Partial fill upon patient request if the prescription isfor a schedule II opioid drug., 167.6, cm, 04/01/22... Start Date: 04/01/22 Status: Ordered Eliquis 5 mg oral tablet 1 tablet, By Mouth, 2 times a day, # 180 tablet, 5 Refills, [facility] STORE 29923, 167.6, cm, 11/21/21 9:53:00 EST, Height Start Date: 02/05/22 Status: Ordered fenofibrate 160 mg oral tablet 0.5 tablet, By Mouth, Daily, # 45 tablet, 3 Refills, Maintenance, 05/28/21 7:19:00 EDT, [facility]/pharmacy #1157, 167.6, cm, 05/07/21 16:16:00 EDT, Height, [...] tablet, Refills 1, Route to Pharmacy Electronically, [facility] STORE 24732, 167.6, cm, 11/21/21 9:53:00 EST, Height Start Date: 02/05/22 Status: Ordered LORazepam 0.5 mg oral tablet 1 tablet = 0.5 mg, By Mouth, Daily, PRN as needed for anxiety, for 30 days, # 30 tablet, 3 Refills,Acute 09/19/22 12:53:00 EST, 05/22/22 12:53:00 EDT, Tablet, [facility]/pharmacy #1157, 167.6, cm, 228:47:00 EDT, Height Start Date: 05/22/22 Stop Date: 09/19/22 Status: Ordered montelukast 10 mg oral tablet [...] 15:00:00 EDT, 04/09/22 15:00:00 EDT, [facility]/pharmacy #1157, 167.6, cm, 04/01/22 8:47:00 [...] Start Date: 11/04/18 Status: Ordered Potassium Chloride (Mtc-Kofs-Wci 10) 10 mEq oral tablet, extended release 1 tablet, By Mouth, Daily, # 90 tablet, 3 Refills, [facility], 167.6, cm, 06/06/21 9:25:00 EDT, Height, 90.7, [...] tablet, 3 Refills, Maintenance, 228:32:00 EDT, Tablet, [facility]/pharmacy #1157, dose increase, 167.6, cm, 02/22/22 7:57:00 EDT, Height Start Date: 02/22/22 Stop Date: 02/17/23 Status: Ordered tamsulosin 0.4 mg oral capsule See Instructions, TAKE 1 CAPSULE BY MOUTH DAILY 30 MINUTES AFTER THE SAME MEAL, # 90 capsule, Refills 1, Instructions Replace Required Details, Route to Pharmacy Electronically, [facility] 87788, 167.6, cm, 02/22/22 7:57:00 EDT, Height Start [...]
--- OUTSIDE RECORDS SUMMARY | 2023-08-20 10:43 | XMS_ITS | Continuity of Care Document ---
Author Name Unknown Organization [facility] Address [address] [place] [address]- Care Team Providers Care Lath Hand Name Role Phone Brennan Tyson MD Primary Care Physician [place] [facility] [place]s): 11/09/19 - 03/19/20 [facility] [address] [place] [address]- [facility] Attending Physician: Brennan Tyson MD Allergies, Adverse [...] tetanus/diphtheria/pertussis, acel(Tdap) 10/20/13 Given 1Result Comment: [08/12/2018] [facility] [id number] 2Result Comment: [08/12/2018] [facility] [id number] Medications Advair Diskus 500 mcg-50 mcg inhalation powder 1 puffs, Inhalation, 2 times a day, # 180 each, 0 Refills, Maintenance, Powder Start Date: 10/23/12 Status: Ordered amLODIPine 10 mg oral tablet 10 mg, 1, tablet, By Mouth, Daily, # 90 tablet, Refills 3, Tot. Refills 3, Maintenance, 12/30/18 13:42:36 EDT, Route to Pharmacy Electronically, [id number], [facility]/pharmacy #1157 Start Date: 12/30/18 Stop Date: 12/25/19 [...] 06/17/19 6:49:21 EDT, Route to Pharmacy Electronically, [id number], [facility]/pharmacy #1157 Start Date: 06/17/19 Status: Ordered [...] tablet, 3 Refills, Maintenance, 12/01/19 13:16:00 EST, [facility] STORE 68369, 167.6, cm, 11/24/19 9:18:00 EST, Height, 90.7, [...] 10/07/18 8:59:29 EST, Route to Pharmacy Electronically, [id number], [facility]/pharmacy #1157 Start Date: 10/07/18 Status: Ordered LORazepam 0.5 mg oral tablet 1 tablet = 0.5 mg, By Mouth, Daily, PRN as needed for anxiety, for 30 days, # 30 tablet, 3 Refills,Acute 05/10/20 10:19:00 EDT, 01/11/20 10:19:00 EDT, Tablet, [facility]/pharmacy #1157, 167.6, cm, :18:00 EST, Height, 90.7, kg, 09/08/19 8:17:00 EST... [...] 1 Refills, Maintenance, 12/28/19 12:28:00 EDT, Tablet, [facility]/pharmacy #1157, 167.6, cm, 11/24/19 9:18:00 EST, Height, [...] 04/08/19 14:06:58 EDT, Route to Pharmacy Electronically, [id number], [facility]/pharmacy #1157 Start Date: 04/08/19 Status: Ordered Problem [...]
--- OUTSIDE RECORDS SUMMARY | 2023-08-20 10:43 | XMS_ITS | Continuity of Care Document ---
Author Name Unknown Organization [facility] Address [address] [place] [address]- Care Team Providers Care Senior Front End Engineer Name Role Phone Brennan Tyson MD Primary Care Physician [facility]counter [facility] Date(s): 10/26/22 - 11/25/22 [facility] [address] [place] [address]- Allergies, Adverse Reactions, Alerts Substance Reaction Severity [...] tetanus/diphtheria/pertussis, acel(Tdap) 10/20/13 Given 1Result Comment: [08/12/2018] [facility] [id number] 2Result Comment: [08/12/2018] [facility] [id number] Medications Advair Diskus 500 mcg-50 mcg inhalation [...] tablet, 1 Refills, Maintenance, 07/08/22 0:13:00 EDT, [facility] STORE 53711, 167.6, cm, 06/18/22 14:40:00 EDT, Height Start Date: 07/08/22 Status: Ordered buPROPion 150 mg/24 hours (XL) oral tablet, extended release 1 tablet = 150 mg, By Mouth, Every 24 hours, # 14 tablet, 0 Refills, Maintenance, 10/18/22 17:03:00EST, [facility]/pharmacy #1157, Partial fill upon [...] Refills, Maintenance, 10/20/22 11:47:00 EST, ER Tablet, [facility]/pharmacy #1157, Partial fill upon patient request if the prescription is for a... Start Date: 10/20/22 Status: Ordered carvedilol 25 mg oral tablet 1, tablet, By Mouth, 2 times a day, # 180 tablet, Refills 3, Route to Pharmacy Electronically, [facility], 167.6, cm, 11/21/21 9:53:00 EST, Height Start [...] # 45 tablet, 4 Refills, [facility], 167.6, cm, 04/01/22 8:47:00 EDT, Height Start Date: 06/07/22 Status: Ordered fluticasone 50 mcg/inh nasal spray 2 sprays, Nares, Both, Daily, Maintenance, 08/18/22 17:16:00 EDT, [place], Partial fill upon patient request if the [...] mL, 5 Refills, Maintenance, 10/17/22 11:51:00 EST, [facility], Partial fill upon patient [...] Stop 04/04/23 15:00:00 EDT, 04/09/22 15:00:00 EDT, [facility]/pharmacy #1157, 167.6, cm, 04/01/22 [...] kg... Start Date: 10/18/22 Status: Ordered Pen Antoine, 31 G x 5 mm BD Ultra [...] tablet, 1 Refills, Maintenance, 10/28/22 8:47:00EST, Tablet, [facility]/pharmacy #1157, 165, cm, 10/18/22 16:17:00 EST, Height, 103, kg, 09/19/22 22:30:00EST, Dry Weight Start Date: 10/28/22 Stop Date: 04/26/23 Status: Ordered tamsulosin 0.4 mg oral capsule See Instructions, TAKE 1 CAPSULE BY MOUTH DAILY 30 MINUTES AFTER THE SAME MEAL, # 90 capsule, Refills 1, Maintenance, 11/08/22 11:58:00 EST, Instructions Replace Required Details, Route to Pharmacy Electronically, [facility] STORE 21155, 165, cm, 10/18/22 16... Start Date: 11/08/22 [...] Care Nurse Name: Luciano Hernandez MD Position: [facility] Renal MD Member Role: Lifetime Consulting Physician Address: Address: [address] [facility] [place] [address]- [place] Name: Brennan Tyson MD Position: [facility] Primary Care Physician Member Role: PCP Address: Address: [address] [place] [address]- Name: Roxy Akers RN Position: S RN Member Role: Primary Care Nurse Name: Flores Freeman RN Position: S RN Member Role: Primary Care Nurse Name: Fabiana Hairston RN Position: S RN Member Role: Primary Care Nurse Care Team Related Persons Name: PRABHAKAR JACINTO Address: [address] [place] [address] Name: KANG JACINTO Name: JOSE SHAW Address: [place] [address] Name: ANUM DUBOSE Address: home [address] [place] [address]
--- OUTSIDE RECORDS SUMMARY | 2023-08-20 10:43 | XMS_ITS | Continuity of Care Document ---
Author Name Unknown Organization [facility] Address Unknown Care Team Providers Care Instructional Aide Name Role Phone Brennan Tyson MD Primary Care Physician [facility] Date[facility]s): 05/09/21 - 06/08/21 [facility] Allergies, Adverse Reactions, Alerts Substance Reaction [...] tetanus/diphtheria/pertussis, acel(Tdap) 10/20/13 Given 1Result Comment: [08/12/2018] [facility] [id number] 2Result Comment: [08/12/2018] [facility] [id number] Medications Advair Diskus 500 mcg-50 mcg inhalation powder 1 puffs, Inhalation, 2 times a day, # 180 each, 0 Refills, Maintenance, Powder Start Date: 10/23/12 Status: Ordered amLODIPine 10 mg oral tablet 10 mg, 1, tablet, By Mouth, Daily, for 90 days, # 90 tablet, Refills 0, Tot. Refills 0, Hard Stop 08/26/21 13:26:00 EST, 05/28/21 13:26:00 EDT, Route to Pharmacy Electronically, [facility]/pharmacy #1157, 167.6, cm, 05/07/21 16:16:00 EDT, Height, 90.7, kg, 1... Start Date: 05/28/21 Stop Date: 08/26/21 Status: Ordered amLODIPine 10 mg oral tablet 10 mg, 1, tablet, By Mouth, Daily, # 90 tablet, Refills 3, Tot. Refills 3, Maintenance, 08/26/21 13:26:00 EST, Route to Pharmacy Electronically, [facility]/pharmacy #1157, 167.6, cm, 05/07/21 16:16:00 EDT, [...] 11 Refills, Maintenance, 02/28/21 15:05:00 EDT, Tablet, [facility]/pharmacy #1157, Partial fill upon patient request if the prescription is for a schedule II opioid drug., 167.6, cm, 02/07/21 9:57:00 EDT, [facility]... Start Date: 02/28/21 Status: Ordered carvedilol 25 mg oral tablet 25 mg, 1, tablet, By Mouth, 2 times a day, # 60 tablet, Refills 11, Tot. Refills 11, Maintenance, 02/28/21 16:34:00 EDT, Route to Pharmacy Electronically, [facility]/pharmacy #1157, 167.6, cm, 02/07/21 9:57:00 EDT, [...] tablet, 5 Refills, Maintenance, 12/25/20 9:10:00 EST, [facility] STORE 82047, 167.6, cm, 11/28/20 10:41:00 EST, Height, 90.7, kg, 09/08/19 8:17:00 EST, Dry Weight Start Date: 12/25/20 Status: Ordered fenofibrate 160 mg oral tablet 0.5 tablet, By Mouth, Daily, # 45 tablet, 3 Refills, Maintenance, 05/28/21 7:19:00 EDT, [facility]/pharmacy #1157, 167.6, cm, 05/07/21 16:16:00 EDT, Height, 90.7, kg, 09/08/19 8:17:00 EST, Dry Weight Start Date: 05/28/21 Status: Ordered hydrochlorothiazide 12.5 mg oral tablet See Instructions, 2 tabs po qAm and 1 tab qPM, # 90 each, 2 Refills, Maintenance, 02/12/21 7:40:00 EDT, [facility]/pharmacy #1157, dose increase, 167.6, cm, 02/07/21 9:57:00 [...] 06/02/20 13:26:00 EDT, Route to Pharmacy Electronically, [facility]/pharmacy #1157, 167.6, cm, 03/27/20 8:14:00 EDT,Height, 90.7, kg, 09/08/19 8:17:00 EST, Dry Weight Start Date: 06/02/20 Status: Ordered LORazepam 0.5 mg oral tablet 1 tablet = 0.5 mg, By Mouth, Daily, PRN as needed for anxiety, for 30 days, # 30 tablet, 2 Refills,Acute 06/26/21 15:17:00 EDT, 03/28/21 15:17:00 EDT, Tablet, [facility]/pharmacy #1157, 167.6, cm, :57:00 EDT, Height, [...] capsule, 0 Refills, Maintenance, 04/27/21 8:50:00 EDT, [facility]/pharmacy #1157, 167.6, cm, 04/10/21 12:50:00 EDT, Height, [...] tablet, 11 Refills, Maintenance, 08/31/20 11:42:00 EST, [facility]/pharmacy #1157, 167.6, cm, 03/27/20 8:14:00 EDT, [...] BEDTIME, # 180 tablet, 1 Refills, Maintenance, [facility] STORE 52033, 167.6, cm, 04/10/21 12:50:00 EDT, Height, 90.7, kg, 09/08/19 8:17:00 EST, Dry Weight Start Date: 05/07/21 Status: Ordered rOPINIRole 1 mg oral tablet 2 tablet = 2 mg, By Mouth, Daily at bedtime, # 180 tablet, 1 Refills, Maintenance, 12/22/20 12:40:00 EST, Tablet, [facility]/pharmacy #1157, 167.6, cm, 11/28/20 10:41:00 EST, Height, 90.7, kg, 09/08/19 8:17:00 EST, Dry Weight Start Date: 12/22/20 Stop Date: 06/20/21 Status: Ordered sertraline 100 mg oral tablet 1 tablet = 100 mg, By Mouth, Daily, # 90 tablet, 3 Refills, Maintenance, 05/29/21 14:34:00 EDT, Tablet, [facility]/pharmacy #1157, dose increase, 167.6, cm, 05/07/21 16:16:00 EDT, Height, 90.7, kg, 198:17:00 EST, Dry Weight Start Date: 05/29/21 Stop Date: 05/24/22 Status: Ordered tamsulosin 0.4 mg oral capsule 0.4 mg, 1, capsule, By Mouth, Daily, 30 minutes after the same meal, # 90 capsule, Refills 3, Tot. Refills 3, Maintenance, 10/25/20 7:20:00 EST, Route to Pharmacy Electronically, [facility]/pharmacy #1157, 167.6, cm, 03/27/20 8:14:00 EDT, [...]
--- OUTSIDE RECORDS SUMMARY | 2023-08-20 10:43 | XMS_ITS | Continuity of Care Document ---
Author Name Unknown Organization [facility] Address [address] [place] [address]- Care Team Providers Care Tin Pot Operator Name Role Phone Brennan Tyson MD Primary Care Physician [facility] Date[facility]): 03[facility]27[facility]20 - 04/26/20 [facility] [address] [place] [address]- [facility] Attending Physician: Joy Dove Admitting Physician: Joy [...] acel(Tdap) 10/20/13 Given 1Result Comment: [08/12/2018] [facility] [id number] 2Result Comment: [08/12/2018] [facility] [id number] Medications Advair Diskus 500 mcg-50 mcg inhalation powder 1 puffs, Inhalation, 2 times a day, # 180 each, 0 Refills, Maintenance, Powder Start Date: 10/23/12 Status: Ordered amLODIPine 10 mg oral tablet 10 mg, 1, tablet, By Mouth, Daily, # 90 tablet, Refills 3, Tot. Refills 3, Maintenance, 12/30/18 13:42:36 EDT, Route to Pharmacy Electronically, [id number], [facility]/pharmacy #1157 Start Date: 12/30/18 Stop Date: 12/25/19 [...] 06/17/19 6:49:21 EDT, Route to Pharmacy Electronically, [id number], [facility]/pharmacy #1157 Start Date: 06/17/19 Status: Ordered [...] Refills, Maintenance, 12/01/19 13:16:00 EST, [facility], 167.6, cm, 11/24/19 9:18:00 EST, Height, 90.7, [...] 10/07/18 8:59:29 EST, Route to Pharmacy Electronically, [id number], [facility]/pharmacy #1157 Start Date: 10/07/18 Status: Ordered LORazepam 0.5 mg oral tablet 1 tablet = 0.5 mg, By Mouth, Daily, PRN as needed for anxiety, for 30 days, # 30 tablet, 3 Refills,Acute 05/10/20 10:19:00 EDT, 01/11/20 10:19:00 EDT, Tablet, [facility]/pharmacy #1157, 167.6, cm, 02/05/209:18:00 EST, Height, 90.7, kg, 09/08/19 8:17:00 EST... [...] 04/08/19 14:06:58 EDT, Route to Pharmacy Electronically, [id number], [facility] Start Date: 04/08/19 Status: Ordered [...] diabetes mellitus wit h renal manifestations(Confirmed) Active Procedures Procedure Date Related Diagnosis Body Site Status Adenoidectomy Completed Adrenalectomy Completed Laparoscopy, surgical, gastr ic restrictive procedure; longitudinal gastrectomy (ie, sleeve gastrectomy) Completed Tonsillectomy Completed Social History Social History Type Response Smoking Status Former smoker; Type: Cigarettes; Other: quit 2006; entered on: 09/19/17 Sex
--- OUTSIDE RECORDS SUMMARY | 2023-08-20 10:43 | XMS_ITS | Continuity of Care Document ---
Author Name Unknown Organization [facility] Adult Address [address] [place] [address]- Care Team Providers Care Poultry Picker Name Role Phone Brennan Tyson MD Primary Care Physician Encounter [facility] Date(s): 10/08/19 - 10/15/19 [facility] [address] [place] [address]- [facility] Encounter Diagnosis Encounter for Medicare annual wellness exam(Discharge Diagnosis) - 10/08/19 Vertigo(Discharge Diagnosis) - 10/08/19 Obesity with body mass index (BMI) of 30.0 to 39.9(Discharge Diagnosis) - 10/08/19 COPD without exacerbation(Discharge Diagnosis) - 10/08/19 CAD S/P percutaneous coronary angioplasty(Discharge Diagnosis) - 10/08/19 Dilated aortic root/ Oct 2017(Discharge Diagnosis) - 10/08/19 Chronic kidney disease stage 3(Discharge Diagnosis) - 10/08/19 CVA (cerebral vascular accident)(Discharge Diagnosis) - 10/08/19 Atrial fibrillation(Discharge Diagnosis) - 10/08/19 Attending Physician: Brennan Tyson MD Allergies, Adverse [...] acel(Tdap) 10/20/13 Given 1Result Comment: [08/12/2018] [facility] [id number] 2Result Comment: [08/12/2018] [facility] [id number] Medications Advair Diskus 500 mcg-50 mcg inhalation powder 1 puffs, Inhalation, 2 times a day, # 180 each, 0 Refills, Maintenance, Powder Start Date: 10/23/12 Status: Ordered amLODIPine 10 mg oral tablet 10 mg, 1, tablet, By Mouth, Daily, # 90 tablet, Refills 3, Tot. Refills 3, Maintenance, 12/30/18 13:42:36 EDT, Route to Pharmacy Electronically, [id number], [facility]/pharmacy #[id number] Start Date: 12/30/18 Stop Date: [...] 06/17/19 6:49:21 EDT, Route to Pharmacy Electronically, [id number], [facility]/pharmacy #[id number] Start Date: 06/17/19 Status: Ordered [...] Ordered fenofibrate 160 mg oral tablet 0.5 tablet = 80 mg, By Mouth, Daily, # 15 tablet, 11 Refills, Maintenance, 12/08/18 10:29:35 EST, Tablet Start Date: 12/08/18 Status: Ordered hydrochlorothiazide 12.5 mg oral tablet [...] 10/07/18 8:59:29 EST, Route to Pharmacy Electronically, [id number], [facility]/pharmacy #[id number] Start Date: 10/07/18 Status: Ordered LORazepam 0.5 mg oral tablet 1 tablet = 0.5 mg, By Mouth, Daily, PRN as needed for anxiety, for 30 days, # 30 tablet, 2 Refills,Acute 01/06/20 7:47:00 EDT, 10/08/19 7:47:00 EST, Tablet, [facility]/pharmacy #[id number], 167.6, cm, 10/08/19 7:00:00 EST, Height, 90.7, kg, 09/08/19 8:17:00 EST,... Start Date: 10/08/19 Stop Date: 01/06/20 Status: Ordered nitroglycerin 0.4 mg sublingual tablet [...] Mouth, Daily at bedtime, # 180 tablet, 3 Refills, Maintenance, 12/30/18 13:42:28 EDT, Tablet Start Date: 12/30/18 Stop Date: 12/25/19 Status: Ordered sertraline 100 mg oral tablet [...] 04/08/19 14:06:58 EDT, Route to Pharmacy Electronically, [id number], [facility]/pharmacy #[id number] Start Date: 04/08/19 Status: Ordered Problem [...] Effective Dates Health Status Clinical Service Informant Encounter for Medicare annual wellness exam Discharge Diagnosis 10/08/19 Atrial fibrillation Discharge Diagnosis 10/08/19 CAD S/P percutaneous coronary angioplasty Discharge Diagnosis 10/08/19 CVA (cerebral vascular accident) Discharge Diagnosis 10/08/19 Chronic kidney disease stage 3 Discharge Diagnosis 10/08/19 Dilated aortic root/ Oct 2017 Discharge Diagnosis 10/08/19 COPD without exacerbation Discharge Diagnosis 10/08/19 Obesity with body mass index (BMI) of 30.0 to 39.9 Discharge Diagnosis 10/08/19 Vertigo Discharge Diagnosis 10/08/19 Vital Signs Most recent to oldest [Reference Range]: 1 Height 167.6 cm (10/08/19 7:00 AM) Weight 94.5 kg (10/08/19 7:00 AM) Pulse Rate [55-90 bpm] 56 bpm (10/08/19 7:00 AM) Body Mass Index [18.5-24.99] 33.64 *>HHI* (10/08/19 7:00 AM) Blood Pressure [90-138/55-84 mm Hg] 140/ 78mm Hg *H* (10/08/19 7:00 AM) Blood pressure sites Arm, left (10/08/19 7:00 AM) Social History Social History Type Response Smoking Status Former smoker; Type: Cigarettes; Other: quit 2006; entered on: 09/19/17 Sex
--- OUTSIDE RECORDS SUMMARY | 2023-08-20 10:43 | XMS_ITS | Continuity of Care Document ---
Author Name Unknown Organization [facility] Adult Address [address] [place] [address]- Care Team Providers Care Gardener Name Role Phone Brennan Tyson MD Primary Care Physician Encounter [facility] Date(s): 04/11/23 - 04/18/23 [facility] [address] [place] [address]- Encounter Diagnosis Encounter for Medicare annual wellness exam(Discharge Diagnosis) - 04/12/23 Dilated aortic root/ Oct 2017(Discharge Diagnosis) - 04/12/23 Major depression in partial remission(Discharge Diagnosis) - 04/12/23 Attending Physician: Brennan Tyson MD Allergies, Adverse [...] acel(Tdap) 10/20/13 Given 1Result Comment: [08/12/2018] [facility] [id number] 2Result Comment: [08/12/2018] [facility] [id number] Medications Advair Diskus 500 mcg-50 mcg inhalation [...] 03/27/23 10:47:00 EDT, Route to Pharmacy Electronically, [facility], Partial fill upon patient request if the prescription is for a schedule II opioi... Start Date: 03/27/23 Status: Ordered atorvastatin 40 mg oral tablet 1 tablet, By Mouth, Daily, # 90 tablet, 1 Refills, Maintenance, 02/22/23 10:19:00 EDT, [facility] STORE [address]66, 165, cm, 02/21/23 9:40:00 EDT, Height, 85, kg, 01/15/23 14:55:00 EDT, Dry Weight Start Date: 02/22/23 Status: Ordered bumetanide 1 mg oral tablet 1 mg, 1, tablet, By Mouth, Daily, dose reduction, # 30 tablet, Refills 5, Tot. Refills 5, Maintenance, 03/13/23 11:25:00 EDT, Route to Pharmacy Electronically, [facility]/pharmacy #[id number], Partial fill upon patient request if the prescription is for a schedule... Start Date: 03/13/23 Status: Ordered carvedilol 25 mg oral tablet 1, tablet, By Mouth, 2 times a day, # 180 tablet, Refills 3, Maintenance, 02/26/23 16:11:00 EDT, Route to Pharmacy Electronically, [facility], 165, cm, 02/21/23 9:40:00 EDT, Height, 85, [...] Mouth, Daily, # 45 tablet, 4 Refills, [facility] STORE [address]673, 167.6, cm, 04/01/22 8:47:00 EDT, Height Start Date: 06/07/22 Status: Ordered fluticasone 50 mcg/inh nasal spray 2 sprays, Nares, Both, Daily, Maintenance, 08/18/22 17:16:00 EDT, [place], Partial fill upon patient request if the [...] 30 tablet, 1 Refills, Maintenance,02/21/23 10:02:00 EDT, [facility]/pharmacy #1157, Partial fill upon patient request [...] kg... Start Date: 10/18/22 Status: Ordered Pen [place], 31 G x 5 mm BD Ultra [...] 03/27/23 10:46:00 EDT, Route to Pharmacy Electronically, [facility], Partial fill upon patient request if [...] tablet, 1 Refills, Maintenance, 02/27/23 10:11:00 EDT, [facility] STORE [address]01, 165, cm, 02/21/23 9:40:00 EDT, Height, 85, kg, 01/15/23 14:55:00 EDT, Dry Weight Start Date: 02/27/23 Status: Ordered tamsulosin 0.4 mg oral capsule See Instructions, TAKE 1 CAPSULE BY MOUTH DAILY 30 MINUTES AFTER THE SAME MEAL, # 90 capsule, Refills 1, Maintenance, 11/08/22 11:58:00 EST, Instructions Replace Required Details, Route to Pharmacy Electronically, [facility] STORE [facility]696, 165, cm, 10/18/22 16... Start Date: 11/08/22 [...] for Medicare annual wellness exam Discharge Diagnosis 04/12/23 Dilated aortic root/ Oct 2017 Discharge Diagnosis 04/12/23 Major depression in partial remission Discharge Diagnosis 04/12/23 Vital Signs Most recent to oldest [Reference Range]: 1 Height 167.6 cm (04/11/23 8:40 AM) Weight 85.7 kg (04/11/23 8:40 AM) Oxygen Saturation [94-100 %] 95 % (04/11/23 8:40 AM) Pulse Rate [55-90 bpm] 91 bpm *H* (04/11/23 8:40 AM) Body Mass Index [18.5-24.99 kg/m2] 30.51 kg/m2 *>HHI* (04/11/23 8:40 AM) Blood Pressure [90-138/55-84 mm Hg] 115/ 76mm Hg (04/11/23 8:40 AM) Blood pressure sites Arm, left (04/11/23 8:40 AM) Social History Social History Type Response Smoking Status Former smoker; Type: Cigarettes; Other: quit 2006; entered on: 09/19/17 Sex Note * Robert Iglesias [place]: PERFORM, SIGN, VERIFY Event Display: Patient Education/Instruction Authored Date: [id number] [facility] *[facility] Larry Mei Clinical Summary Name ROLDAN JACINTO Age 73 Years 1950 PCP Brennan Tyson MD PCP Visit Date 04/11/2023 08:11:00 Additional Instructions: Scheduled Appointments?? Future Appointments ?No Future Appointments Scheduled Follow-Up Instructions ?? Diagnosis Chronic kidney disease, stage 3a; Type 2 diabetes mellitus with other diabetic kidney complication;Chronic obstructive pulmonary disease, unspecified; Unspecified atrial fibrillation; Hyperlipidemia, unspecified; Other ill-defined heart diseases; Essential (primary) hypertension Medications: Please continue your medications until treatment is completed or stopped by your provider. Discuss any questions related to medications with your provider. Medications to Continue with No Changes These medications were not printed or sent to your pharmacy Albuterol (Albuterol (Eqv-ProAir HFA)) 2 puff(s) Inhalation 3 times a day. Next Dose: Aspirin (aspirin 81 mg oral delayed release tablet) 1 tab(s) Oral Daily. Refills: 0. Next Dose: Atorvastatin (atorvastatin 40 mg oral tablet) 1 tab(s) Oral Daily. Refills: 1. Next Dose: Bumetanide (bumetanide 1 mg oral tablet) 1 tab(s) Oral Daily. dose reduction. Refills: 5. Next Dose: Carvedilol (carvedilol 25 mg oral tablet) 1 tab(s) Oral twice a day. Refills: 3. Next Dose: Clopidogrel (Plavix 75 mg oral tablet) 1 tab(s) Oral Daily. Refills: 0. Next Dose: Duloxetine (duloxetine 60 mg oral enteric coated capsule) 1 capsule Oral Daily. Next Dose: Durable Medical Equipment (Insulin Syringe, BD Ultra-Fine 1 cc 31 G x 8 mm (5/16in)) To use as directed for heparin injections three times daily. Refills: 5. Next Dose: Durable Medical Equipment (One Touch Delica Lancets) 1 box = 100 lancets Check blood sugar QD icd 10 E11.9. Refills: 3. Next Dose: Durable Medical Equipment (One Touch Verio glucometer) Test glucose levels QD Use with One Touch test strips and lancets ICD 10 E11.9. Refills: 0. Next Dose: Durable Medical Equipment (One Touch Verio test strips) Use with One Touch Verio glucometer to check glucose QD ICD 10 E 11.9. Refills: 3. Next Dose: Durable Medical Equipment (Pen [place], 31 G x 5 mm BD Ultra Fine III) use as directed three times daily for heparin injections. Refills: 5. Next Dose: Durable Medical Equipment (Rollator Walker) use daily for all ADL's. Refills: 0. Next Dose: Fenofibrate (fenofibrate 160 mg oral tablet) 0.5 tab(s) Oral Daily. Refills: 4. Next Dose: Fluticasone Nasal (fluticasone 50 mcg/inh nasal spray) 2 spray(s) Nares, Both Daily. Next Dose: Fluticasone-Salmeterol (Advair Diskus 500 mcg-50 mcg inhalation powder) 1 puff(s) Inhalation twice a day. Next Dose: Lorazepam (LORazepam 0.5 mg oral tablet) 1 tab(s) Oral Daily as needed as needed for anxiety. Refills: 1. Next Dose: Melatonin (melatonin 3 mg oral tablet) 3 Milligram Oral Daily at Bedtime as needed Insomnia. Next Dose: Minoxidil (minoxidil 2.5 mg oral tablet) 1 tab(s) Oral Daily. Next Dose: Montelukast (montelukast 10 mg oral tablet) 1 tab(s) Oral Daily at Bedtime. Next Dose: Ropinirole (rOPINIRole 1 mg oral tablet) 2 tab(s) Oral Daily at Bedtime. Refills: 1. Next Dose: Tamsulosin (tamsulosin 0.4 mg oral capsule) TAKE 1 CAPSULE BY MOUTH DAILY 30 MINUTES AFTER THE SAMEMEAL. Refills: 1. Next Dose: Trazodone (traZODone 50 mg oral tablet) 0.5 tab(s) Oral every 8 hours as needed Anxiety. Next Dose: umeclidinium (Incruse Ellipta 62.5 mcg/inh inhalation powder) 1 Each Inhalation every 24 hours. doses should be taken at least 24 hours apart. Next Dose: Allergy Info:?? HORSE SERUM PROTEINS AB.IGE.RAST CLASS; tetanus toxoid; labetalol Medications Given This Visit Future Orders ?Basic Metabolic Panel? Order Date:04/11/23?- Complete on or after?04/11/23 ?Hemoglobin A1C (Monitoring)? Order Date:04/11/23?- Complete on or after?04/11/23 ?Lipid Panel? Order Date:04/11/23?- Complete on or after?04/11/23 ?AST? Order Date:04/11/23?- Complete on or after?04/11/23 ?ALT? Order Date:04/11/23?- Complete on or after?04/11/23 Vital Signs Height 167.6 cm Weight 85.7 kg BMI 30.51 kg/m2 Blood Pressure 115 mm Hg/76 mm Hg Temperature Pulse Rate 91 bpm Respiratory Rate 02 Sat Mode of Delivery 95 %/ You can now view a summary of your hospital visit from the comfort of your home through a free online portal called [employer]. [employer] is a website that allows you to securely view your medical information including discharge summary, medications and follow-up visits. ??You can alsosend a secure electronic message to your doctor???s office to request appointments, renew medications or just ask a question. You can enroll at [email or web address] or register during your next office visit. Disclaimer:?? The information provided is of a general nature and is intended to be used in conjunction with the recommendations and advice of your health care practitioner. ??Every effort has been made to ensure that the information provided is accurate and complete at the time it is provided to you however, as your needs change, or, as new ??information becomes available, different or additional instructions may be required. If you have questions, please consult with your primary care provider or pharmacist, as appropriate. ??This information is not intended to serve as substitution for assessment and evaluation by a qualified health care provider. If you do not have a primary care provider, you may find a [facility] provider by calling [facility] Link at [phone]. For information about the plan of care including goals and instructions for your diagnosis, please see the patient education orders section of this document. Patient Education Materials?? The content of this educational material or handout may have been modified, supplemented, or adapted from its original content and format to support your individualized medical care. Patient Care team information Care Team Personnel Name: Sonny Silverman RN Position: [facility] RN Member Role: Primary Care Nurse Name: Luciano Hernandez MD Position: [facility] Renal MD Member Role: Lifetime Consulting Physician Address: Address: [address] [place] [address] [address] [facility] [place] [address]- Name: Brennan Tyson MD Position: [facility] Physician - Primary Care Member Role: PCP Address: Address: [address] [place] [address]- Name: Roxy Akers RN Position: [facility] AMB Nurse Member Role: Primary Care Nurse Name: Flores Freeman RN Position: [facility] RN Member Role: Primary Care Nurse Care Team Related Persons Name: PRABHAKAR JACINTO Address: [address] [place] [address] Name: KANG JACINTO Name: JOSE SHAW Address: [place] [address] Name: ANUM DUBOSE Address: home [address] [place] [address]
--- OUTSIDE RECORDS SUMMARY | 2023-08-20 10:43 | XMS_ITS | Continuity of Care Document ---
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 [id number] 2Result Comment: [08/12/2018] [facility] [id number] Medications Advair Diskus 500 mcg-50 mcg inhalation powder 1 puffs, Inhalation, 2 times a day, # 180 each, 0 Refills, Maintenance, Powder Start Date: 10/23/12 Status: Ordered amLODIPine 10 mg oral tablet 10 mg, 1, tablet, By Mouth, Daily, # 90 tablet, Refills 3, Tot. Refills 3, Maintenance, 08/26/21 13:26:00 EST, Route to Pharmacy Electronically, [facility]/pharmacy #1157, 167.6, cm, 05/07/21 16:16:00 [...] tablet, 1 Refills, Maintenance, 07/08/22 0:13:00 EDT, [facility] STORE 73300, 167.6, cm, 06/18/22 14:40:00 EDT, Height Start Date: 07/08/22 Status: Ordered carvedilol 25 mg oral tablet 1, tablet, By Mouth, 2 times a day, # 180 tablet, Refills 3, Route to Pharmacy Electronically, [facility] STORE 39334, 167.6, cm, 11/21/21 9:53:00 EST, Height Start [...] capsule, 11 Refills, Maintenance, 07/08/22 10:56:00 EDT, [facility], Partial fill upon patient request if the prescr... Start Date: 07/08/22 Status: Ordered duloxetine 60 mg oral enteric coated capsule 1 capsule = 60 mg, By Mouth, Daily, dose increase, # 30 capsule, 11 Refills, Maintenance, 06/18/22 15:02:00 EDT, [facility], Partial fill upon patient request if the prescription is for a schedule II opioid drug., 167.6, cm, 06/18/22 14:40:00... Start Date: 06/18/22 Status: Ordered Eliquis 5 mg oral tablet 1 tablet, By Mouth, 2 times a day, # 180 tablet, 5 Refills, [facility], 167.6, cm, 11/21/21 9:53:00 EST, Height Start Date: 02/05/22 Status: Ordered fenofibrate 160 mg oral tablet 0.5 tablet, By Mouth, Daily, # 45 tablet, 4 Refills, [facility] 107[facility], 167.6, cm, 04/01/22 8:47:00 EDT, Height Start [...] tablet, Refills 1, Route to Pharmacy Electronically, [facility]ORE 55916, 167.6, cm, 11/21/21 9:53:00 EST, Height Start Date: 02/05/22 Status: Ordered LORazepam 0.5 mg oral tablet 1 tablet = 0.5 mg, By Mouth, Daily, PRN as needed for anxiety, for 30 days, # 30 tablet, 3 Refills,Acute 09/19/22 12:53:00 EST, 05/22/22 12:53:00 EDT, Tablet, [facility]/pharmacy #1157, 167.6, cm, 228:47:00 EDT, Height Start [...] Stop 04/04/23 15:00:00 EDT, 04/09/22 15:00:00 EDT, [facility]/pharmacy #1157, 167.6, cm, 04/01/22 8:47:00 [...] Start Date: 11/04/18 Status: Ordered Potassium Chloride (Mzd-Zibb-Slg 10) 10 mEq oral tablet, extended release 1 tablet, By Mouth, Daily, # 90 tablet, 3 Refills, [facility] 26583, 167.6, cm, 06/06/21 9:25:00 EDT, Height, 90.7, [...] tablet, 1 Refills, Maintenance, 08/29/21 11:45:00 EST, [facility]/pharmacy #1157, 167.6, cm, 06/06/21 9:25:00 EDT, Height, 90.7, kg, 09/08/19 8:17:00 EST, Dry Weight Start Date: 08/29/21 Status: Ordered rOPINIRole 1 mg oral tablet 2 tablet = 2 mg, By Mouth, Daily at bedtime, # 180 tablet, 1 Refills, Maintenance, 12/22/20 12:40:00 EST, Tablet, [facility]/pharmacy #1157, 167.6, cm, 11/28/20 10:41:00 EST, Height, 90.7, kg, 09/08/19 8:17:00 EST, Dry Weight Start Date: 12/22/20 Stop Date: 06/20/21 Status: Ordered sertraline 100 mg oral tablet 1.5 tablet = 150 mg, By Mouth, Daily, dose increase, # 135 tablet, 3 Refills, Maintenance, 228:32:00 EDT, Tablet, [facility]/pharmacy #1157, dose increase, 167.6, cm, 02/22/22 7:57:00 EDT, Height Start Date: 02/22/22 Stop Date: 02/17/23 Status: Ordered tamsulosin 0.4 mg oral capsule See Instructions, TAKE 1 CAPSULE BY MOUTH DAILY 30 MINUTES AFTER THE SAME MEAL, # 90 capsule, Refills 1, Instructions Replace Required Details, Route to Pharmacy Electronically, [facility], 167.6, cm, 02/22/22 7:57:00 EDT, Height Start [...] Major depression in partial remission Discharge Diagnosis 9/19/22 Vital Signs Most recent to oldest [Reference Range]: 1 Height 167.6 cm (07/08/22 10:30 AM) Social History Social History Type Response Smoking Status Former smoker; Type: Cigarettes; Other: quit 2006; entered on: 09/19/17 Sex Care Team Personnel Name: Brennan Tyson MD Address: [address] [place] [address]
--- OUTSIDE RECORDS SUMMARY | 2023-08-20 10:43 | XMS_ITS | Continuity of Care Document ---
Author Name Unknown Organization [facility] Address [address] [place] [address]- Care Team Providers Care Tar Processing Technician Name Role Phone Brennan Tyson MD Primary Care Physician Encounter [facility] Date(s): 07/02/23 - 08/01/23 [facility] [address] [place] [address]- Allergies, Adverse Reactions, Alerts Substance Reaction Severity Status labetalol Active tetanus toxoid Active HORSE SERUM PROTEINS AB.IGE.RAST CLASS Active Immunizations Given and Recorded Vaccine Date Status Refusal Reason [id number] bivalent booster vax 07/21/23 Recorded influenza virus [...] Comment: [08/12/2018] [facility] [id number] 2Result Comment: [08/12/2018] [facility] [id number] Medications Advair Diskus 500 mcg-50 mcg inhalation [...] 10:47:00 EDT, Route to Pharmacy Electronically, [facility], Partial fill upon patient request if the prescription is for a schedule II opioi... Start Date: 03/27/23 Status: Ordered atorvastatin 40 mg oral tablet 1 tablet, By Mouth, Daily, # 90 tablet, 1 Refills, Maintenance, 07/10/23 18:32:00 EDT, [facility] 720[facility], 167.6, cm, 07/02/23 13:44:00 EDT, Height, 85, kg, 01/15/23 14:55:00 EDT, Dry Weight Start Date: 07/10/23 Status: Ordered bumetanide 1 mg oral tablet 2 mg, 2, tablet, By Mouth, Daily, # 180 tablet, Refills 1, Maintenance, 07/02/23 15:49:00 EDT, Route to Pharmacy Electronically, [facility] 03989, 167.6, cm, 07/02/23 13:44:00 EDT, Height, 85, kg, 01/15/23 14:55:00 EDT, Dry Weight Start Date: 07/02/23 Status: Ordered carvedilol 25 mg oral tablet 1, tablet, By Mouth, 2 times a day, # 180 tablet, Refills 3, Maintenance, 02/26/23 16:11:00 EDT, Route to Pharmacy Electronically, [facility] 30369, 165, cm, 02/21/23 9:40:00 EDT, Height, 85, kg, 01/15/23 14:55:00 EDT, Dry Weight Start Date: 02/26/23 Status: Ordered duloxetine 30 mg oral enteric coated capsule See Instructions, 1 capsule daily for 2 weeks and then 1 capsule every other day for 2 weeks and then stop., # 21 capsule, 0 Refills, Maintenance, 07/09/23 15:44:00 EDT, [facility]/pharmacy #1157, Partial fill upon patient request if the prescription is for... Start Date: 07/09/23 Status: Ordered duloxetine 60 mg oral enteric coated capsule 1 capsule, By Mouth, Daily, # 90 capsule, 3 Refills, Maintenance, 07/02/23 15:49:00 EDT, [facility] 62054, 167.6, cm, 07/02/23 13:44:00 EDT, Height, 85, kg, 01/15/23 14:55:00 EDT, Dry Weight Start Date: 07/02/23 Status: Ordered fenofibrate 160 mg oral tablet 0.5 tablet, By Mouth, Daily, # 45 tablet, 0 Refills, Maintenance, 06/10/23 0:49:00 EDT, [facility] 46939, 167.6, cm, 04/11/23 8:40:00 EDT, Height, 85, kg, 01/15/23 14:55:00 EDT, Dry Weight Start Date: 06/10/23 Status: Ordered fluticasone 50 mcg/inh nasal spray 2 sprays, Nares, Both, Daily, Maintenance, 08/18/22 17:16:00 EDT, [place], Partial fill upon patient request if the [...] 30 tablet, 1 Refills, Maintenance,02/21/23 10:02:00 EDT, [facility]/pharmacy #1157, Partial fill upon patient request [...] Refills, Maintenance, 06/19/23 16:44:00 EDT, [facility], 167.6, cm, 04/11/23 8:40:00 EDT, Height, 85, [...] kg... Start Date: 10/18/22 Status: Ordered Pen Hoyt, 31 G x 5 mm BD Ultra [...] 03/27/23 10:46:00 EDT, Route to Pharmacy Electronically, [facility], Partial fill upon patient request if the prescription is for a schedule II opioi... Start Date: 03/27/23 Status: Ordered Potassium Chloride (Nui-Lbdd-Dpp 10) 10 mEq oral tablet, extended release 1 tablet, By Mouth, Daily, # 90 tablet, 3 Refills, Maintenance, 07/02/23 15:49:00 EDT, [facility], 167.6, cm, 07/02/23 13:44:00 EDT, Height, 85, [...] Refills, Maintenance, 07/02/23 15:49:00 EDT, [facility], 167.6, cm, 07/02/23 13:44:00 EDT, Height, 85, [...] Replace Required Details, Route to [facility]ically, [facility], 16... Start Date: 05/22/23 Status: Ordered [...] mL, 1 Refills, Maintenance, 07/02/23 14:05:00 EDT, [facility], Partial fill upon patient [...] Team Personnel Name: Nayeli Fernandez RN Position: [facility] RN Member Role: Primary Care Nurse Name: Sonny Silverman RN Position: [facility] RN Member Role: Primary Care Nurse Name: Luciano Hernandez MD Position: [facility] Renal MD Member Role: Lifetime Consulting Physician Address: Address: [address] [place] [address] [address] [facility], [place] [address]- Name: Brennan Tyson MD Position: [facility] Physician - Primary Care Member Role: PCP Address: Address: [address] [place] [address]- Name: Teresa Boyd [place] Position: [facility] DAPHNE Prepress Supervisor Member Role: Front Office Clerk Name: Roxy Akers RN Position: [facility] MANISHA Nurse Member Role: Primary Care Nurse Name: Flores Freeman RN Position: [facility] RN Member Role: Primary Care Nurse Care Team Related Persons Name: PRABHAKAR JACINTO Address: home [address] [place] [id number] Name: KANG JACINTO Name: JOSE SHAW Address: [place] [address] Name: ANUM DUBOSE Address: home [address] [place] [address]
--- OUTSIDE RECORDS SUMMARY | 2023-08-20 10:43 | XMS_ITS | Continuity of Care Document ---
Author Name Unknown Organization [facility] Address Unknown Care Team Providers Care Change Agent Name Role Phone Brennan Tyson MD Primary Care Physician Encounter [facility] Date(s): 02/22/22 - 03/01/22 [facility] Encounter Diagnosis Cognitive impairment(Discharge Diagnosis) - 02/22/22 Attending Physician: Brennan Tyson MD Allergies, Adverse [...] tetanus/diphtheria/pertussis, acel(Tdap) 10/20/13 Given 1Result Comment: [08/12/2018] [facility] [id number] 2Result Comment: [08/12/2018] [facility] [id number] Medications Advair Diskus 500 mcg-50 mcg inhalation powder 1 puffs, Inhalation, 2 times a day, # 180 each, 0 Refills, Maintenance, Powder Start Date: 10/23/12 Status: Ordered amLODIPine 10 mg oral tablet 10 mg, 1, tablet, By Mouth, Daily, # 90 tablet, Refills 3, Tot. Refills 3, Maintenance, 08/26/21 13:26:00 EST, Route to Pharmacy Electronically, [facility]/pharmacy #1157, 167.6, cm, 05/07/21 16:16:00 EDT, Height, 90.7, kg, 09/08/19 8:17:00 EST, Dry Weight Start Date: 08/26/21 Status: Ordered aspirin 81 mg oral delayed release tablet 81 mg, 1, tablet, By Mouth, Daily, # 30 tablet, Refills 0, Maintenance, 12/27/18 10:46:04 EDT Start Date: 12/27/18 Status: Ordered atorvastatin 40 mg oral tablet 1 tablet, By Mouth, Daily, # 90 tablet, 1 Refills, [facility], 167.6, cm, 11/21/21 9:53:00 EST, Height Start Date: 02/05/22 Status: Ordered carvedilol 25 mg oral tablet 1, tablet, By Mouth, 2 times a day, # 180 tablet, Refills 3, Route to Pharmacy Electronically, [facility], 167.6, cm, 11/21/21 9:53:00 EST, Height Start [...] a day, # 180 tablet, 5 Refills, [facility] 81803, 167.6, cm, 11/21/21 9:53:00 EST, Height Start Date: 02/05/22 Status: Ordered fenofibrate 160 mg oral tablet 0.5 tablet, By Mouth, Daily, # 45 tablet, 3 Refills, Maintenance, 05/28/21 7:19:00 EDT, [facility]/pharmacy #1157, 167.6, cm, 05/07/21 16:16:00 EDT, [...] tablet, Refills 1, Route to Pharmacy Electronically, [facility] 41602, 167.6, cm, 11/21/21 9:53:00 EST, Height Start [...] 7:56:13, Tablet Start Date: 11/07/17 Status: Ordered One Touch Delica Lancets See [...] Start Date: 11/04/18 Status: Ordered Potassium Chloride (Wzj-Xcxd-Gwr 10) 10 mEq oral tablet, extended release 1 tablet, By Mouth, Daily, # 90 tablet, 3 Refills, [facility] 86463, 167.6, cm, 06/06/21 9:25:00 EDT, Height, 90.7, [...] tablet, 1 Refills, Maintenance, 08/29/21 11:45:00 EST, [facility]/pharmacy #1157, 167.6, cm, 06/06/21 9:25:00 EDT, Height, 90.7, kg, 09/08/19 8:17:00 EST, Dry Weight Start Date: 08/29/21 Status: Ordered rOPINIRole 1 mg oral tablet 2 tablet = 2 mg, By Mouth, Daily at bedtime, # 180 tablet, 1 Refills, Maintenance, 12/22/20 12:40:00 EST, Tablet, [facility]/pharmacy #1157, 167.6, cm, 11/28/20 10:41:00 EST, Height, 90.7, kg, 09/08/19 8:17:00 EST, Dry Weight Start Date: 12/22/20 Stop Date: 06/20/21 Status: Ordered sertraline 100 mg oral tablet 1.5 tablet = 150 mg, By Mouth, Daily, dose increase, # 135 tablet, 3 Refills, Maintenance, 228:32:00 EDT, Tablet, [facility]/pharmacy #1157, dose increase, 167.6, cm, 02/22/22 7:57:00 EDT, Height Start Date: 02/22/22 Stop Date: 02/17/23 Status: Ordered tamsulosin 0.4 mg oral capsule See Instructions, TAKE 1 CAPSULE BY MOUTH DAILY 30 MINUTES AFTER THE SAME MEAL, # 90 capsule, Refills 1, Instructions Replace Required Details, Route to Pharmacy Electronically, [facility] 94466, 167.6, cm, 06/06/21 9:25:00 EDT, Height Start [...] Effective Dates Health Status Clinical Service Informant Cognitive impairment Discharge Diagnosis 02/22/22 Vital Signs Most recent to oldest [Reference Range]: 1 Height 167.6 cm (02/22/22 7:57 AM) Weight 97.9 kg (02/22/22 7:57 AM) Oxygen Saturation [94-100 %] 96 % (02/22/22 7:57 AM) Pulse Rate [55-90 bpm] 58 bpm (02/22/22 7:57 AM) Body Mass Index [18.5-24.99] 34.85 *>HHI* (02/22/22 7:57 AM) Blood Pressure [90-138/55-84 mm Hg] 130/ 68mm Hg (02/22/22 7:57 AM) Blood pressure sites Arm, left (02/22/22 7:57 AM) Social History Social History Type Response Smoking Status Former smoker; Type: Cigarettes; Other: quit 2006; entered on: 09/19/17 Sex
[2023-08-20 10:44] VITALS: BP 140/90; PULSE 92; BMI 31.1
--- OUTSIDE RECORDS SUMMARY | 2023-08-20 10:44 | XMS_ITS | Continuity of Care Document ---
Author Name Unknown Organization [facility] ter Address [address] [place] [address]- Care Team Providers Care Side Piece Coverer Name Role Phone Brennan Tyson MD Primary Care Physician Encounter [facility] Date(s): 11/29/22 - 11/29/[address] [address] Discharge Disposition: A-D/C Home Attending Physician: Byron Pham MD Admitting Physician: Byron Pham MD Referring Physician: Byron Pham MD Allergies, Adverse Reactions, Alerts Substance Reaction [...] tetanus/diphtheria/pertussis, acel(Tdap) 10/20/13 Given 1Result Comment: [08/12/2018] [facility] [id number] 2Result Comment: [08/12/2018] [facility] [id number] Medications Advair Diskus 500 mcg-50 mcg inhalation [...] tablet, 1 Refills, Maintenance, 07/08/22 0:13:00 EDT, [facility] 61481, 167.6, cm, 06/18/22 14:40:00 EDT, Height Start Date: 07/08/22 Status: Ordered buPROPion 150 mg/24 hours (XL) oral tablet, extended release 1 tablet = 150 mg, By Mouth, Every 24 hours, # 14 tablet, 0 Refills, Maintenance, 10/18/22 17:03:00EST, [facility]/pharmacy #1157, Partial fill upon patient [...] Refills, Maintenance, 10/20/22 11:47:00 EST, ER Tablet, [facility]/pharmacy #1157, Partial fill upon patient request if the prescription is for a... Start Date: 10/20/22 Status: Ordered carvedilol 25 mg oral tablet 1, tablet, By Mouth, 2 times a day, # 180 tablet, Refills 3, Route to Pharmacy Electronically, [facility], 167.6, cm, 11/21/21 9:53:00 EST, Height Start [...] # 45 tablet, 4 Refills, [facility], 167.6, cm, 04/01/22 8:47:00 EDT, Height Start Date: 06/07/22 Status: Ordered fluticasone 50 mcg/inh nasal spray 2 sprays, Nares, Both, Daily, Maintenance, 08/18/22 17:16:00 EDT, [place], Partial fill upon patient request if the [...] mL, 5 Refills, Maintenance, 10/17/22 11:51:00 EST, [facility], Partial fill upon patient [...] Stop 04/04/23 15:00:00 EDT, 04/09/22 15:00:00 EDT, [facility]/pharmacy #1157, 167.6, cm, 04/01/22 8:47:00 [...] kg... Start Date: 10/18/22 Status: Ordered Pen Vida, 31 G x 5 mm BD Ultra [...] tablet, 1 Refills, Maintenance, 10/28/22 8:47:00EST, Tablet, [facility]/pharmacy #1157, 165, cm, 10/18/22 16:17:00 EST, Height, 103, kg, 09/19/22 22:30:00EST, Dry Weight Start Date: 10/28/22 Stop Date: 04/26/23 Status: Ordered tamsulosin 0.4 mg oral capsule See Instructions, TAKE 1 CAPSULE BY MOUTH DAILY 30 MINUTES AFTER THE SAME MEAL, # 90 capsule, Refills 1, Maintenance, 11/08/22 11:58:00 EST, Instructions Replace Required Details, Route to Pharmacy Electronically, [facility] 29928, 165, cm, 10/18/22 16... Start Date: 11/08/22 [...] Active 1Per chart review meeting GFR criteria Results Radiology Reports * Exam Date Time Procedure Performing Provider Status 11/29/22 9:16 AM IR End of Case Report Aut h (Verified) IR End of Case Report * Exam Date Time Procedure Performing Provider Status 11/29/22 9:24 AM IR Venous Access Device Removal Auth (Verified) Notes: (IR Venous Access Device Removal) Reason For Exam: Other: IR Venous Access Device Removal Patient: ROLDAN JACINTO Study Date: 11/29/2022 Performing: Ganesh Hammer PA-C Referring: : 1950 Age: 72 Gender: MALE Pre-procedure diagnosis and Indication: Patient presents for removal of Permcath following completion of treatment. Exam: Prior to the procedure, the patient was seen and the nature of the procedure explained along with its attendant risks and benefits to the patient . Informed consent was obtained from, the patient . The patient arrived in for a tunneled hemodialysis catheter removal PROCEDURE: The patient was positioned supine and secured with . The access site was prepped with chloraprep and draped in the usual sterile fashion. 1% Lidocaine was administered as a local anesthetic. Permcath was removed without difficulty with traction. patient tolerated the procedure well with no complications of the procedure estimated blood loss was minimal Specimens/samples: no specimens or samples were sent for this procedure Impression: Satisfactory removal of right Permcath, patient tolerated the procedure well with no complications of the procedure Fluoroscopy time and dose Total Fluoro Time: 0 mins Total dose 0 mGy Total DAP 0 - ?Gy/m2 No contrast was used for this procedure Local Anesthetic Lidocaine 1% w/ 4.2% sodium bicarbonate 5 ml's SQ Signed By Ganesh Hammer PA-C On 11/29/2022 13:14:27 Ganesh Hammer PA-C, Njogu MD Dictated By: Ganesh Ruggiero Dictated Date/Time: 11/29/22 9:16 am Reviewed By: Ganesh Ruggiero Signed By: Ganesh Ruggiero Signed Date/Time: 11/29/22 9:24 am Transcribed By: JASKARAN Transcribed Date/Time: 11/29/22 9:24 am Vital Signs Most recent to oldest [Reference Range]: 1 2 3 Height 165 cm (11/29/22 7:55 AM) 165 cm (11/29/22 7:52 AM) 165 cm (11/29/22 7:45 AM) Weight 87 kg (11/29/22 7:45 AM) Oxygen Saturation [94-100 %] 95 % (11/29/22 7:29 AM) Pulse Rate [55-90 bpm] 70 bpm (11/29/22 7:29 AM) Blood Pressure [90-138/55-84 mm Hg] 167/76mm Hg *H* (11/29/22 7:55 AM) 196/91mm Hg *H* (11/29/22 7:52 AM) 198/92mm Hg *H* (11/29/22 7:29 AM) Respiratory Rate [16-30 br/min] 18 br/min (11/29/22 7:29 AM) Temperature [96.8-100.4 DegF] 98.1 DegF (11/29/22 7:29 AM) Mode of Delivery (Oxygen) Room air (11/29/22 7:29 AM) Blood pressure sites Arm, left (11/29/22 7:29 AM) Temperature Route Oral (11/29/22 7:29 AM) Dry Weight 87 kg (11/29/22 7:45 AM) Social History Social History Type Response Smoking Status Former smoker; Type: Cigarettes; Other: quit 2006; entered on: 09/19/17 Sex Hospital Progress note * Tara Molina RN: SIGN, VERIFY, PERFORM Event Display: Progress Note Hospital Authored Date: Patient: ROLDAN JACINTO Age: 72 years Sex: Male : 1950 Associated Diagnoses: None Author: Tara Molina RN Findings Narrative/Incidental patient arrived to unit for perm cath removal, A&xo3, BP elevated at 190s/90s. IR dept notified, patient did not take his BP meds this morning and he is on heparin SQ as well. BP came down to 160s/70s after recheck and IR made aware of all. IV started to the L hand, labs and IVF as ordered. offunit to procedure and returned after procedure with dressing in place post perm cath removal, small amount of bleeding to dressing noted. A&Ox3, VSS, patient had a brief period of bedrest and no change to the drainage. tolerated food and drink well. IV was removed. d/c instructions reviewed with patient and verbalizes understanding. dressed and left the unit via w/c with all belongings and with present. patient has all belongings and is in stable condition. . Discharge Information Case Management Discharge Plan : Case Management Discharge Plan Data 11/29/2022 10:16 EST Discharge Level of Care at Discharge Home/Chcf/[facility]oster Care Pulmonary Rehab Discharge : Pulmonary Rehab Discharge Status 11/29/2022 7:45 EST Liter flow 2 LPM Note * Tara Molina RN: PERFORM Event Display: Discharge/Transfer Note Hospital Authored Date: [id number] Nursing Discharge Note Entered On: 11/29/2022 10:50 EST Performed On: 11/29/2022 10:16 EST by Tara Molina RN Nursing Discharge Note 2 Discharge Time : 11/29/2022 10:16 EST Discharge Level of Care at Discharge : Home/[facility]/Foster Care Patient Left Unit Via : Wheelchair Patient Accompanied Off Unit with : Significant other DC Instructions Provided & Signed by Pt : Yes Patient Understands D/C Instructions : Yes Patient Instructions Discharge Signed : Yes Did Pt have Specialty Bed or Wound Vac : No Tara Molina RN - 11/29/2022 10:49 EST * Event Display: IR End of Case Report * Ganesh Ruggiero: PERFORM, TRANSCRIBE, VERIFY, VERIFY Event Display: Result: Authored Date: [id number] Patient: ROLDAN JACINTO Study Date: 11/29/2022 Performing: Ganesh Hammer PA-C Referring: : 1950 Age: 72 Gender: MALE Pre-procedure diagnosis and Indication: Patient presents for removal of Permcath following completion of treatment. Exam: Prior to the procedure, the patient was seen and the nature of the procedure explained along with its attendant risks and benefits to the patient . Informed consent was obtained from, the patient . The patient arrived in for a tunneled hemodialysis catheter removal PROCEDURE: The patient was positioned supine and secured with . The access site was prepped with chloraprep and draped in the usual sterile fashion. 1% Lidocaine was administered as a local anesthetic. Permcath was removed without difficulty with traction. patient tolerated the procedure well with no complications of the procedure estimated blood loss was minimal Specimens/samples: no specimens or samples were sent for this procedure Impression: Satisfactory removal of right Permcath, patient tolerated the procedure well with no complications of the procedure Fluoroscopy time and dose Total Fluoro Time: 0 mins Total dose 0 mGy Total DAP 0 - ?Gy/m2 No contrast was used for this procedure Local Anesthetic Lidocaine 1% w/ 4.2% sodium bicarbonate 5 ml's SQ Signed By Ganesh Hammer PA-C On 11/29/2022 13:14:27 Ganesh Hammer PA-C, Njogu MD Dictated By: Ganesh Ruggiero Dictated Date/Time: 11/29/22 9:16 am Reviewed By: Ganesh Ruggiero Signed By: Ganesh Ruggiero Signed Date/Time: 11/29/22 9:24 am Transcribed By: JASKARAN Transcribed Date/Time: 11/29/22 9:24 am Patient Care team information Care Team Personnel Name: Nayeli Fernandez RN Position: [facility] RN Member Role: Primary Care Nurse Name: Erin Pendleton RN Position: [facility] RN Member Role: Primary Care Nurse Name: Luciano Hernandez MD Position: [facility] Renal MD Member Role: Lifetime Consulting Physician Address: Address: [address] [facility], [place] [address]- Name: Brennan Tyson MD Position: [facility] Primary Care Physician Member Role: PCP Address: Address: [address] [place] [address]- [place] Name: Roxy Akers RN Position: S RN Member Role: Primary Care Nurse Name: Flores Freeman RN Position: S RN Member Role: Primary Care Nurse Name: Fabiana Hairston RN Position: S RN Member Role: Primary Care Nurse Care Team Related Persons Name: ROSEY JACINTOEN Address: home [address] [place] [address] Name: KANG JACINTO Name: JOSE SHAW Address: [place] [address] Name: ANUM DUBOSE Address: home [address] [place] [address]
--- OUTSIDE RECORDS SUMMARY | 2023-08-20 10:44 | XMS_ITS | Continuity of Care Document ---
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 Refills 3, Maintenance, 06/02/20 13:26:00 EDT, Route to Pharmacy Electronically, [facility]/pharmacy #1157, 167.6, cm, 03/27/20 [...] 06/17/19 6:49:21 EDT, Route to Pharmacy Electronically, [id number], [facility]/pharmacy #1157 Start Date: 06/17/19 [...] tablet, 1 Refills, Maintenance, 11/27/20 14:33:00 EST, [facility]/pharmacy #1157, 167.6, cm, 10/25/20 13:12:00 EST, Height, 90.7, kg, 09/08/19 8:17:00 EST, Dry Weight Start Date: 11/27/20 Status: Ordered hydrochlorothiazide 12.5 mg oral tablet See Instructions, 2 tabs po qAm and 1 tab qPM, # 90 each, 5 Refills, Maintenance, 08/14/20 16:03:00EDT, [facility]/pharmacy #1157, dose increase, 167.6, [...] 06/02/20 13:26:00 EDT, Route to Pharmacy Electronically, [facility]/pharmacy #1157, 167.6, cm, 03/27/20 8:14:00 EDT,Height, 90.7, kg, 09/08/19 8:17:00 EST, Dry Weight Start Date: 06/02/20 Status: Ordered LORazepam 0.5 mg oral tablet 1 tablet = 0.5 mg, By Mouth, Daily, PRN as needed for anxiety, for 30 days, # 30 tablet, 2 Refills,Acute 02/26/21 11:08:00 EDT, 11/28/20 11:08:00 EST, Tablet, [facility]/pharmacy #1157, 167.6, cm, 11/28/2109:41:00 [...] 0 Refills, Soft Stop, 11/07/20 4:07:00 EST, [facility]/pharmacy #1157, 167.6, cm, 10/25/20 [...] 1 Refills, Maintenance, 06/25/20 12:28:00 EDT, Tablet, [facility]/pharmacy #1157, 167.6, cm, 03/27/20 8:14:00 EDT, Height, 90.7, kg, 09/08/19 8:17:00 EST, Dry Weight Start Date: 06/25/20 Stop Date: 12/22/20 Status: Ordered sertraline 100 mg oral tablet 1.5 tablet = 150 mg, By Mouth, Daily, # 45 tablet, 11 Refills, Maintenance, 11/28/20 11:02:00 EST, Tablet, [facility]/pharmacy #1157, dose increase, 167.6, [...] Major depression in partial remission Discharge Diagnosis 11/28/20 Vital Signs Most recent to oldest [Reference Range]: 1 Height 167.6 cm (11/28/20 10:41 AM) Pulse Rate [55-90 bpm] 56 bpm (11/28/20 10:41 AM) Blood Pressure [90-138/55-84 mm Hg] 161/ 89mm Hg *H* (11/28/20 10:41 AM) Social History Social History Type Response Smoking Status Former smoker; Type: Cigarettes; Other: quit 2006; entered on: 09/19/17 Sex
--- OUTSIDE RECORDS SUMMARY | 2023-08-20 10:44 | XMS_ITS | Continuity of Care Document ---
Author Name Unknown Organization [facility] Adult Address [address] [place] [address]- Care Team Providers Care Hvac Engineering Technician Name Role Phone Brennan Tyson MD Primary Care Physician [phone] Encounter [facility] Date(s): 03/13/23 - 04/12/23 [facility] [address] [place] [address]- Allergies, Adverse Reactions, Alerts Substance Reaction Severity [...] acel(Tdap) 10/20/13 Given 1Result Comment: [08/12/2018] [facility] [id number] 2Result Comment: [08/12/2018] [facility] [id number] Medications Advair Diskus 500 mcg-50 mcg inhalation [...] 03/27/23 10:47:00 EDT, Route to Pharmacy Electronically, [facility], Partial fill upon patient request if the prescription is for a schedule II opioi... Start Date: 03/27/23 Status: Ordered atorvastatin 40 mg oral tablet 1 tablet, By Mouth, Daily, # 90 tablet, 1 Refills, Maintenance, 02/22/23 10:19:00 EDT, [id number], 165, cm, 02/21/23 9:40:00 EDT, Height, 85, kg, 01/15/23 14:55:00 EDT, Dry Weight Start Date: 02/22/23 Status: Ordered bumetanide 1 mg oral tablet 1 mg, 1, tablet, By Mouth, Daily, dose reduction, # 30 tablet, Refills 5, Tot. Refills 5, Maintenance, 03/13/23 11:25:00 EDT, Route to Pharmacy Electronically, [facility]/pharmacy #[id number], Partial fill upon patient request if the prescription is for a schedule... Start Date: 03/13/23 Status: Ordered carvedilol 25 mg oral tablet 1, tablet, By Mouth, 2 times a day, # 180 tablet, Refills 3, Maintenance, 02/26/23 16:11:00 EDT, Route to Pharmacy Electronically, [id number], 165, cm, 02/21/23 9:40:00 EDT, Height, 85, [...] # 45 tablet, 4 Refills, [id number], 167.6, cm, 04/01/22 8:47:00 EDT, Height Start Date: 06/07/22 Status: Ordered fluticasone 50 mcg/inh nasal spray 2 sprays, Nares, Both, Daily, Maintenance, 08/18/22 17:16:00 EDT, [place], Partial fill upon patient request if the [...] 30 tablet, 1 Refills, Maintenance,02/21/23 10:02:00 EDT, [facility]/pharmacy #[id number], Partial fill upon patient [...] kg... Start Date: 10/18/22 Status: Ordered Pen [place], 31 G x 5 mm BD Ultra [...] 03/27/23 10:46:00 EDT, Route to Pharmacy Electronically, [facility], Partial fill upon patient [...] tablet, 1 Refills, Maintenance, 02/27/23 10:11:00 EDT, [facility], 165, cm, 02/21/23 9:40:00 EDT, Height, 85, kg, 01/15/23 14:55:00 EDT, Dry Weight Start Date: 02/27/23 Status: Ordered tamsulosin 0.4 mg oral capsule See Instructions, TAKE 1 CAPSULE BY MOUTH DAILY 30 MINUTES AFTER THE SAME MEAL, # 90 capsule, Refills 1, Maintenance, 11/08/22 11:58:00 EST, Instructions Replace Required Details, Route to Pharmacy Electronically, [id number], 165, cm, 10/18/22 16... Start Date: 11/08/22 [...] Name: Nayeli Fernandez RN Position: [facility] RN Member Role: Primary Care Nurse Name: Sonny Silverman RN Position: [facility] RN Member Role: Primary Care Nurse Name: Luciano Hernandez MD Position: [facility] Renal MD Member Role: Lifetime Consulting Physician Address: Address: [address] [place] [address] [address] [facility] [place] [address]- Name: Brennan Tyson MD Position: [facility] Physician - Primary Care Member Role: PCP Address: Address: [address] [place] [id number]- Name: Roxy Akers RN Position: [facility] AMB Nurse Member Role: Primary Care Nurse Name: Flores Freeman RN Position: [facility] RN Member Role: Primary Care Nurse Care Team Related Persons Name: PRABHAKAR JACINTO Address: [address] [address] Name: KANG JACINTO Name: JOSE SHAW Address: [place] [address] Name: ANUM DUBOSE Address: home [address] [place] [id number]
--- OUTSIDE RECORDS SUMMARY | 2023-08-20 10:44 | XMS_ITS | Continuity of Care Document ---
Author Name Unknown Organization [facility] ter Address [address] [place] [id number]- Care Team Providers Care Marketing Systems Manager Name Role Phone Brennan Tyson MD Primary Care Physician Encounter [facility] Date(s): 03/26/23 - 03/27/[address] [address] [place] Discharge Disposition: A-D/C Home Attending Physician: Vero Masters MD Admitting Physician: Vero Masters MD Referring Physician: Brennan Tyson MD Allergies, [...] Given 1Result Comment: [08/12/2018] [facility] [id number] 2Result Comment: [08/12/2018] [facility] [id number] Medications Advair Diskus 500 mcg-50 mcg inhalation [...] 03/27/23 10:47:00 EDT, Route to Pharmacy Electronically, [facility], Partial fill upon patient request if the prescription is for a schedule II opioi... Start Date: 03/27/23 Status: Ordered atorvastatin 40 mg oral tablet 1 tablet, By Mouth, Daily, # 90 tablet, 1 Refills, Maintenance, 02/22/23 10:19:00 EDT, [facility] STORE [facility]30, 165, cm, 02/21/23 9:40:00 EDT, Height, 85, kg, 01/15/23 14:55:00 EDT, Dry Weight Start Date: 02/22/23 Status: Ordered bumetanide 1 mg oral tablet 1 mg, 1, tablet, By Mouth, Daily, dose reduction, # 30 tablet, Refills 5, Tot. Refills 5, Maintenance, 03/13/23 11:25:00 EDT, Route to Pharmacy Electronically, [facility]/pharmacy #[id number], Partial fill upon patient request if the prescription is for a schedule... Start Date: 03/13/23 Status: Ordered carvedilol 25 mg oral tablet 1, tablet, By Mouth, 2 times a day, # 180 tablet, Refills 3, Maintenance, 02/26/23 16:11:00 EDT, Route to Pharmacy Electronically, [facility], 165, cm, 02/21/23 9:40:00 EDT, Height, 85, kg, 01/15/23 14:55:00 EDT, Dry Weight Start Date: 02/26/23 Status: Ordered carvedilol 25 mg oral tablet 25 mg, Tablet, By Mouth, 03/27/23 9:00:00 EDT Start Date: 03/27/23 Stop Date: 03/27/23 Status: Completed duloxetine 60 mg oral enteric coated capsule 1 capsule = 60 mg, By Mouth, Daily, # 30 capsule, 0 Refills, Maintenance, 12/27/22 10:50:00 EST, [facility], Partial fill upon patient request if the prescription is for a schedule II opioid drug. Start Date: 12/27/22 Status: Ordered fenofibrate 160 mg oral tablet 0.5 tablet, By Mouth, Daily, # 45 tablet, 4 Refills, [facility], 167.6, cm, 04/01/22 8:47:00 EDT, Height Start Date: 06/07/22 Status: Ordered fluticasone 50 mcg/inh nasal spray 2 sprays, Nares, Both, Daily, Maintenance, 08/18/22 17:16:00 EDT, [place], Partial fill upon patient request if the [...] 30 tablet, 1 Refills, Maintenance,02/21/23 10:02:00 EDT, [facility]/pharmacy #[id number], Partial fill upon patient [...] opioid drug. Start Date: 08/29/22 Status: Ordered Minoxidil Tablet 2.5 mg, Tablet, By Mouth, 03/27/23 9:00:00 EDT Start Date: 03/27/23 Stop Date: 03/27/23 Status: Completed montelukast 10 mg oral tablet 10 mg, [...] kg... Start Date: 10/18/22 Status: Ordered Pen [place], 31 G x 5 mm BD Ultra [...] 03/27/23 10:46:00 EDT, Route to Pharmacy Electronically, [facility], Partial fill upon patient [...] tablet, 1 Refills, Maintenance, 02/27/23 10:11:00 EDT, [facility] 614[facility], 165, cm, 02/21/23 9:40:00 EDT, Height, 85, kg, 01/15/23 14:55:00 EDT, Dry Weight Start Date: 02/27/23 Status: Ordered tamsulosin 0.4 mg oral capsule See Instructions, TAKE 1 CAPSULE BY MOUTH DAILY 30 MINUTES AFTER THE SAME MEAL, # 90 capsule, Refills 1, Maintenance, 11/08/22 11:58:00 EST, Instructions Replace Required Details, Route to Pharmacy Electronically, [facility]ORE 71827, 165, cm, 10/18/22 16... Start Date: 11/08/22 [...] Exam Date Time Procedure Performing Provider Status 03/27/23 8:56 AM Chest 2 Views Frontal and Lat Mert Santiago; Daily (Verified) Notes: (Chest 2 Views Frontal and Lat) Reason For Exam: Postop;Postop RESULT: Chest 2 Views Frontal and Lat Chest 2 Views Frontal and Lat Reason: Post appendage closure device COMPARISON: 09/23/2022 FINDINGS: LINES AND TUBES: None. LUNGS AND PLEURA: Diminished lung volumes with mild bibasilar atelectasis. Trace left effusion. No pneumothorax. HEART, MEDIASTINUM AND LEI: Heart is normal in size. Normal mediastinal and hilar contour. Suboptimal examination limits evaluation of the atrial appendage device, however metallic density appears overlying the left cardiac border. BONES AND SOFT TISSUES: No acute abnormality. IMPRESSION: Left atrial appendage device partially imaged in the expected location of the left atrial appendagealthough not well evaluated due to technique. Trace left effusion. I have personally reviewed the images and I agree with this report. WSN: [id number] Ordering Physician: Vero Masters Dictated By: Brennan Loyola DO Dictated Date/Time: 03/27/23 10:51 a Reviewed By: Ernst Alas MD Signed By: Ernst Alas MD Signed Date/Time: 03/27/23 10:56 am Transcribed By: RAMÓN Transcribed Date/Time: 03/27/23 10:37 am Vital Signs Most recent to oldest [Reference Range]: 1 2 3 Height 167.6 cm (03/27/23 2:29 AM) 167.6 cm (03/26/23 8:43 PM) 167.6 cm (03/26/23 1:01 PM) Weight 81.0 kg (03/27/23 5:37 AM) 83.1 kg (03/26/23 1:01 PM) Oxygen Saturation [94-100 %] 97 % (03/27/23 7:00 AM) 98 % (03/27/23 2:29 AM) 95 % (03/26/23 8:43 PM) Pulse Rate [55-90 bpm] 67 bpm (03/27/23 8:24 AM) 67 bpm (03/27/23 7:00 AM) 66 bpm (03/27/23 2:29 AM) Body Mass Index [18.5-24.99 kg/m2] 29.58 kg/m2 *H* (03/26/23 1:01 PM) Blood Pressure [90-138/55-84 mm Hg] 122/77mm Hg (03/27/23 8:24 AM) 122/77mm Hg (03/27/23 8:24 AM) 122/77mm Hg (03/27/23 7:00 AM) Respiratory Rate [16-30 br/min] 18 br/min (03/27/23 7:00 AM) 18 br/min (03/27/23 2:29 AM) 18 br/min (03/26/23 8:43 PM) Temperature [96.8-100.4 DegF] 97.5 DegF (03/27/23 7:00 AM) 97.6 DegF (03/27/23 2:29 AM) 97.5 DegF (03/26/23 8:43 PM) Liters per Minute 2 L/min (03/26/23 8:43 PM) 2 L/min (03/26/23 6:20 PM) 4 L/min (03/26/23 5:30 PM) Mode of Delivery (Oxygen) Room air (03/27/23 7:00 AM) Room air (03/27/23 2:29 AM) Nasal cannula (03/26/23 8:43 PM) Blood pressure sites Arm, left (03/27/23 7:00 AM) Arm, left (03/27/23 2:29 AM) Arm, left (03/26/23 8:43 PM) Temperature Route Temporal (03/27/23 7:00 AM) Temporal (03/27/23 2:29 AM) Temporal (03/26/23 8:43 PM) Weight Obtained Via Bed scale (03/27/23 5:37 AM) Standing scale (03/26/23 1:01 PM) Social History Social History Type Response Smoking Status Former smoker; Type: Cigarettes; Other: quit 2006; entered on: 09/19/17 Sex Note * Event Display: Hemodynamic Procedure Report Authored Date: [id number] * Promise BRADFORD, Johanna: PERFORM Event Display: Discharge/Transfer Note Hospital Authored Date: [id number] Nursing Discharge Note Entered On: 03/27/2023 12:40 EDT Performed On: 03/27/2023 12:39 EDT by Johanna Virgen RN Nursing Discharge Note 2 Discharge Time : 03/27/2023 12:39 EDT Discharge Level of Care at Discharge : Home/Custodial/Foster Care Patient Left Unit Via : Wheelchair Patient Accompanied Off Unit with : Significant other DC Instructions Provided & Signed by Pt : Yes Patient Understands D/C Instructions : Yes Verbalized Understanding of D/C Plan By : Patient, Significant other Patient Instructions Discharge Signed : Yes Discharge Comments : Pt and educated on new meds, able to teach back. IV removed prior to d/c.Tele removed and brought to tele room. Did Pt have Specialty Bed or Wound Vac : No Johanna Virgen RN - 03/27/2023 12:39 EDT * Vero Masters MD: PERFORM, SIGN, VERIFY Event Display: Discharge/Transfer Note Hospital Authored Date: [id number] Patient: ROLDAN JACINTO Age: 73 years Sex: Male : 1950 Associated Diagnoses: None Author: Vero Masters MD No acute issues, Physical Examination Vital Signs Reviewed Results: Vitals : VITALS(Date Range: 03/26/2023 0:00 EDT - 03/27/2023 10:49 EDT). General Appearance NAD. HEENT Moist mucous membranes. Respiratory Lungs: CTA. Cardiac Cardiac: no M/G/R. Rhythms: RRR. Abdomen/GI Abdomen: soft, non-tender. Extremities Extremities: no clubbing, no cyanosis. Neurologic Alert & oriented x 3 . Results Review Reviewed Impression and Plan Discharge Diagnosis: Paroxysmal Atrial Fibrillation Right Kidney/Right Peritoneal hematoma SUMMARY: The patient does have a history of paroxysmal atrial fibrillation with CHADS-VASc score of5 points. He is clinically compromised by anemia with right peritoneal and right kidney hematoma. Successful hemostasis of the right femoral vein with closre device. Successful occlusion of left atrial appendage with a 31 mm Watchman FLX device. RECOMMENDATIONS: Bed rest for 4 hours. Start ASA and Plavix. Repeat transesophageal echocardiogram in 45 days. If no evidence of thrombus or darlene- device leak greater than 5 mm. We will start clopidogrel 75 mg daily and continue aspirin once daily until six months post-procedure with subsequent discontinuation of the clopidogrel. Continue to follow up with labs as needed as well. Discharge Medications: Coreg 25 mg PO BID Plavix 75 mg PO AD Duloxetine Lorazepam Melatonin Minoxidil Montelukast Ropinorole Tamsulosin Trazodone Bumex Fenofibrate Advair Diskus Omeprazole Umeclidinium Albuterol ASA 81 mg PO QD Atorvastatin 40 mg PO QD Follow-up with [facility] * Promise BRADFORD, Johanna: PERFORM, MODIFY Event Display: Patient Education/Instruction Authored Date: [id number] Inpatient Adult Discharge Instructions [address] [address] Name: ROLDAN JACINTO : 1950 Visit: 03/26/2023 12:39:00 Current Date: 03/27/2023 11:32 Account: [id number] Inpatient Adult Discharge Instructions We would like to thank you for allowing us to assist you with your healthcare needs. The following includes patient education materials and information regarding your injury/illness. Our entire staffstrives to provide an excellent experience for our patients and their families. PLEASE ENSURE YOU FOLLOW-UP PER THE INSTRUCTIONS BELOW! ?? YOUR OPINION IS IMPORTANT TO US! Please complete the survey you may receive by mail or email. Your feedback will be used to make improvements to the healthcare experiences of our patients and their families. Surveys are administered by [employer] ?? If further treatment with your primary care physician or another doctor is recommended, it is important for you to keep the appointment. Call your primary care physician or return to the Emergency Department immediately if your condition worsens, fails to improve, or new symptoms develop. If you need to find a doctor, you can call [facility] [employer] for a referral at [phone] or toll free at [phone] or log in to [email or web address].. ?? You can view and manage your care through the patient portal or by using a health care myla of your choosing. [employer] is a website that allows you to securely view your medical information including your hospital discharge summary, office visit summaries, medications and follow-up visits. You can also request appointments, renew medications, and request access to your medical information using a health care myla of your choosing, or just ask a question. You can enroll at [email or web address] or register during your next office visit. You have been discharged from [facility], Patient Care Unit: M7. If you have any questions regarding these instructions after you leave, please call us and we will be happy to assist you. [facility] Your Care Team Attending Physician Guerrero RINCON, Vero Cheney Consulting Providers Kvng Hickman MD Discharging Providers Vero Masters MD Reason for Admission AFIB LEFT ATRIAL MYLA CLOSURE HV2 TARI ARR 1 PM Your Diagnosis Implantation of Left Atrial Occlusion Device Tests Performed Below is a partial list of the tests performed during your hospitalization. You may have had other tests and procedures not included in this list. Please discuss all test results with your provider. BUN CBC Creatinine GLUCOSE POC INR Lytes Type and Screen XR Chest 2 Views Frontal and Lat Primary Care Provider Brennan Tyson MD Advance Directive Health Care Proxy on File Yes - Health Care Proxy Discharge Vitals Temperature: 97.5 DegF Height: 167.6 cm Pulse Rate: 67 bpm Weight: 81 kg Respiratory Rate: 18 br/min Body Mass Index:??29.58 kg/m2??High Systolic Blood Pressure: 122 mm Hg Body surface area: 1.97 Systolic Blood Pressure: 122 mm Hg ?? Diastolic Blood Pressure: 77 mm Hg ?? Diastolic Blood Pressure: 77 mm Hg ?? Oxygen Saturation: 97 % ?? Studies Pending All tests and labs ordered during this hospital stay have been completed unless listed below. Please discuss all pending results with your provider listed above in these instructions. ?? COVID-19 (2019 Novel Coronavirus) PCR What to do next Instructions From Your Doctor Discharge Orders Scheduled Follow-Up Appointments Friday 9:00 AM EDT ?? With: Brennan Tyson MD Where: [facility] [address] [place] [address]- Status: Pending You Need to Schedule the Following Appointments Follow Up with??Vero Masters MD When:??Only if needed Why: Follow up as directed post procedure Where: [address] [facility], [address], [address] [facility] [place] [address]- Follow Up with??Brennan Tyson MD When:??Only if needed Where: [address] [place] [address]- Discharge Medications ROLDAN JACINTO :1950 Visit Date:03/26/2023 Medications: Please continue your medications until treatment is completed or stopped by your provider. Medications not listed below should be discontinued. Discuss any questions related to medications with your provider. What How Much When Why Instructions Next Dose New Aspirin (aspirin 81 mg oral delayed release tablet) 1 tab(s) Oral Daily Pickup at [place] [address] tomorrow (03/28) at 9AM New Clopidogrel (Plavix 75 mg oral tablet) 1 tab(s) Oral Daily Pickup at [place] [address] tomorrow (03/28) at 9AM Unchanged Atorvastatin (atorvastatin 40 mg oral tablet) 1 tab(s) Oral Daily tonight (03/28) at 8PM Unchanged Bumetanide (bumetanide 1 mg oral tablet) 1 tab(s) Oral Daily dose reduction ?? tomorrow (03/28) at 9AM Unchanged Carvedilol (carvedilol 25 mg oral tablet) 1 tab(s) Oral Twice a day tonight (03/28) at 8PM Unchanged Duloxetine (duloxetine 60 mg oral enteric coated capsule) 1 capsule Oral Daily tomorrow (03/28) at 9AM Unchanged Fenofibrate (fenofibrate 160 mg oral tablet) 0.5 tab(s) Oral Daily tomorrow (03/28) at 9AM Unchanged Fluticasone Nasal (fluticasone 50 mcg/ inh nasal spray) 2 spray(s) Nares, Both Daily tomorrow (03/28) at 9AM Unchanged Fluticasone-Salmeterol (Advair Diskus 500 mcg-50 mcg inhalation powder) 1 puff(s) Inhalation Twice a day tonight (03/28) at 8PM Unchanged Lorazepam (LORazepam 0.5 mg oral tablet) 1 tab(s) Oral Daily as needed for as needed for anxiety as needed Unchanged Melatonin (melatonin 3 mg oral tablet) 3 Milligram Oral Daily at Bedtime as needed for Insomnia tonight (03/28) at 8PM Unchanged Minoxidil (minoxidil 2.5 mg oral tablet) 1 tab(s) Oral Daily tomorrow (03/28) at 9AM Unchanged Montelukast (montelukast 10 mg oral tablet) 1 tab(s) Oral Daily at Bedtime tonight (03/28) at 8PM Unchanged Omeprazole (omeprazole 40 mg oral enteric coated capsule) 1 capsule Oral Twice a day Duration: 90 Days tonight (03/28) at 8PM Unchanged Ropinirole (rOPINIRole 1 mg oral tablet) 2 tab(s) Oral Daily at Bedtime tonight (03/28) at 8PM Unchanged Tamsulosin (tamsulosin 0.4 mg oral capsule) See instructions TAKE 1 CAPSULE BY MOUTH DAILY 30 MINUTES AFTER THE SAME MEAL ?? tonight (03/28) at 8PM Unchanged Trazodone (traZODone 50 mg oral tablet) 0.5 tab(s) Oral Every 8 hours as needed for Anxiety as needed Unchanged umeclidinium (Incruse Ellipta 62.5 mcg/ inh inhalation powder) 1 Each Inhalation Every 24 hours doses should be taken at least 24 hours apart ?? tomorrow (03/28) at 9AM Pharmacy Information [facility] 3: [address] [place], [place] [id number] [phone] ?? What How Much When Why Comments Stop Taking Heparin (heparin 5000 u/ ml injectable solution) 5,000 unit(s) Subcutaneous Injection 3 times a day Atrial fibrillation Test Results Below is a partial list of the most recent Laboratory test results done prior to this discharge. You may have had other tests and procedures not included in this list. Please discuss all test resultswith your provider. BUN (03/26/2023) ???BUN - 23 mg/dL CBC (03/26/2023) ???WBC - 8.5 k/mm3???RBC - 5.27 m/mm3???Hgb - 14.7 Gm/dL???Hct - 47.0 %???MCV - 89.2 femtoliters???MCH - 27.9 pg???MCHC - 31.3 g/dL???Platelet Count - 323 k/mm3???RDW-SD - 56.3 femtoliters???MPV - 10.8 femtoliters???Nucleated RBC (Automated) - 0.0 #/100 WBC'S???Abs. NRBC - 0.0 k/mm3 Creatinine (03/26/2023) ???Creatinine-Blood - 1.4 mg/dL???Estimated GFR Creatinine - 53 ML/MIN/1.73 M2 GLUCOSE POC (03/26/2023) ???Glucose, POC - 95 mg/dL INR (03/26/2023) ???INR - 1.2???Protime (PT) - 12.3 seconds Lytes (03/26/2023) ???Sodium - 143 mmol/L???Potassium - 4.4 mmol/L???Chloride - 106 mmol/L???Bicarbonate Level - 25 mmol/L???Anion Gap - 12 Type and Screen (03/26/2023) ???Blood Type - O Positive???Antibody Screen - Negative Allergies (NKA means No Known Allergies) HORSE SERUM PROTEINS AB.IGE.RAST CLASS labetalol tetanus toxoid Problems Active Problems??(21) Anxiety?? Aortic insufficiency (mild to modrate on echo 08/10)?? Arteriosclerotic heart disease (ASHD)?? Atrial fibrillation?? Atypical angina?? [facility] Plate Gauger Teresa Boyd [phone]?? CAD S/P percutaneous coronary angioplasty?? Chronic kidney disease, stage 3a?? COPD without exacerbation?? CVA (cerebral vascular accident)?? Diastolic dysfunction?? Dilated aortic root/ Oct 2017?? Esophageal reflux?? Essential hypertension?? History of COPD?? Hyperlipidemia?? Major depression in partial remission?? Nephrolithiasis?? Obesity?? RICKIE (obstructive sleep apnea)?? Type 2 diabetes mellitus with renal manifestations?? Education Materials Below is the list of Educational Leaflet Providered with your Discharge Instructions. Tamsulosin Oral Capsule?? Aspirin Oral Tablet 81 mg?? Minoxidil Oral Tablet?? Clopidogrel Oral Tablet?? Carvedilol Oral Tablet?? Clopidogrel Oral Tablet?? Aspirin Oral Tablet?? Discharge Instructions for Atrial Fibrillation?? Surgery Left Atrial Appendage Closure Discharge Instructions?? Valuables and Belongings I fully understand and agree that [facility] accepts no responsibility for all my personal property including clothing, toilet articles, radios, jewelry, dentures, hearing aids, rings, money, or any other property that is in my possession or is brought to me after admission. I understand certain valuables may be placed in a hospital safe for a short period of time. I understand that the hospital is not liable for loss or damage due to accident, fire, or other natural occurrence while said property is in the safe. I accept full responsibility for any personal property that I keep with me, and will not hold the hospital responsible in case of loss or disappearance. I acknowledge that i have been encouraged to send valuables and belongings home. ?? Review of Valuable and Belonging List: With patient Review of Valuable and Belonging List: With patient Date for Pt to Sign Valuables/Belongings: 03/26/23 13:57:00 Date for Pt to Sign Valuables/Belongings: 03/26/23 13:01:00 ?? Valuables & Belongings ?? Clothes Electronic devices Jewelry Monetary Items Personal devices Miscellaneous Medications (Valuables) Valuables at Bedside Jacket, Pants, Shirt, Shoes, Undergarments ? Dentures, full, Glasses ? Valuables Sent Home ? Valuables Sent to Security ? Other Discharge Information ? Pulmonary Rehab Status?? Pulmonary Rehab Discharge Status?? Respiratory Rate: 18 br/min ? Common Emergency Awareness Tips IS IT A STROKE? Act FAST and Check for these signs: FACE Does the face look uneven? ARM Does one arm drift down? SPEECH Does their speech sound strange? TIME Call at any sign of stroke ?? Heart Attack Signs Chest discomfort: Most heart attacks involve discomfort in the center of the chest and lasts more than a few minutes, or goes away and comes back. It can feel like uncomfortable pressure, squeezing, fullness or pain. Discomfort in upper body: Symptoms can include pain or discomfort in one or both arms, back, neck, jaw or stomach. Shortness of breath: With or without discomfort. Other signs: Breaking out in a cold sweat, nausea, or lightheaded. Remember, MINUTES DO MATTER. If you experience any of these heart attack warning signs, call 9-1-1 to get immediate medical attention! ?? Smoking can increase your chances of developing chronic health problems and can cause harmful effects to other family members in your house. If you smoke, you are strongly encouraged to quit. Please call [facility] [employer] at [phone] or [phone]) or log in to [email or web address] for referrals to smoking cessation programs. ?? 590 Suicide & Crisis Lifeline is available 12/05 if you or someone you know needs to find a reason to keep living. By calling 945 you'll be connected to a skilled, trained counselor at a crisis center in your area. INPATIENT DISCHARGE INSTRUCTIONS SIGNATURE PAGE ROLDAN JACINTO Location:[facility] Registration Date and Time:03/26/2023 12:39 EDT Primary Care Physician: Brennan Tyson MD, Attending Physician: Guerrero RINCON, Vero Cheney, I ROLDAN JACINTO, have received the above patient education materials/instructions and have verbalized understanding. If ambulance or transport services are being used I further acknowledge being given a choice of service. ?? If you need to contact me, please call me at this number: . Patient/Content Strategist Name: Patient/Content Strategist Signature: Relationship to Patient: Witness Name/Signature: Date: * Johanna Virgen RN: PERFORM Event Display: Patient Education Leaflets Authored Date: [id number] Tamsulosin Oral Capsule ?? [id number] Tamsulosin Oral Capsule Brands: Flomax Uses This medicine is used for the following purposes: ??? kidney stones ??? prostate enlargement ?? Instructions Swallow the medicine without crushing or chewing it. Take the medicine 30 minutes after the same meal each day. This medicine will work best if you take it at about the same time every day. Keep the medicine at room temperature. Avoid heat and direct light. It is important that you keep taking each dose of this medicine on time even if you are feeling well. If you forget to take a dose on time, take it as soon as you remember. If it is almost time for thenext dose, do not take the missed dose. Return to your normal schedule. Do not take 2 doses at one time. Drug interactions can change how medicines work or increase risk for side effects. Tell your healthcare providers about all medicines taken. Include prescription and vrvj-[id number]-[id number] medicines, vitamins, and herbal medicines. Speak with your doctor or pharmacist before starting or stopping any medicine. ?? Cautions Tell your doctor and pharmacist if you ever had an allergic reaction to a medicine. Do not use the medication any more than instructed. This medicine may cause dizziness or fainting, especially after exercising or in hot weather. Be very careful when standing or sitting up quickly. Your ability to stay alert or to react quickly may be impaired by this medicine. Do not drive or operate machinery until you know how this medicine will affect you. Please check with your doctor before drinking alcohol while on this medicine. Tell the doctor or pharmacist if you are , planning to be , or . It is unknown if this medicine passes into breast milk. Ask your doctor before . During , this medicine should be used only when clearly needed. Talk to your doctor about the risks and benefits. If you have a painful erection or an erection for more than 4 hours, seek medical care right away. Do not share this medicine with anyone who has not been prescribed this medicine. ?? Side Effects The following is a list of some common side effects from this medicine. Please speak with your doctor about what you should do if you experience these or other side effects. ??? dizziness or drowsiness Call your doctor or get medical help right away if you notice any of these more serious side effects: ??? low blood pressure ??? impotence ??? problems with sexual functions or desire A few people may have an allergic reaction to this medicine. Symptoms can include difficulty breathing, skin rash, itching, swelling, or severe dizziness. If you notice any of these symptoms, seek medical help quickly. ?? Extra Please speak with your doctor, nurse, or pharmacist if you have any questions about this medicine. ?? [email or web address] IMPORTANT NOTE: This document tells you briefly how to take your medicine, but it does not tell youall there is to know about it. Your doctor or pharmacist may give you other documents about your medicine. Please talk to them if you have any questions. Always follow their advice. There is a more complete description of this medicine available in [place]. Scan this code on your smartphone or tablet or use the web address below. You can also ask your pharmacist for a printout. If you have any questions, please ask your pharmacist. The display and use of this drug information is subject to Terms of Use. Copyright(c) 2022 [employer]. ?? [employer]. All rights reserved. This information is not intended as a substitute for professional medical care. Always follow your healthcare professional's instructions. ?? * Promise BRADFORD, Johanna: PERFORM Event Display: Patient Education Leaflets Authored Date: [id number] Minoxidil Oral Tablet ?? 70379-122 Minoxidil Oral Tablet Uses For high blood pressure. ?? Instructions This medicine may be taken with or without food. Ask your doctor if any of your medicines need to be taken at the same time. This medicine will work best if you take it at about the same time every day. Keep the medicine at room temperature. Avoid heat and direct light. It is important that you keep taking each dose of this medicine on time even if you are feeling well. If you forget to take a dose on time, take it as soon as you remember. If it is almost time for thenext dose, do not take the missed dose. Return to your normal schedule. Do not take 2 doses at one time. Tell your doctor and pharmacist about all your medicines. Include prescription and ujhf-pbo-jtctlrulmkimzazw, vitamins, and herbal medicines. Do not suddenly stop taking this medicine. Check with your doctor before stopping. It is very important that you follow your doctor's instructions for all blood tests. ?? Cautions Tell your doctor and pharmacist if you ever had an allergic reaction to a medicine. Some patients taking this medicine have experienced serious side effects. Please speak with your doctor to understand the risks and benefits associated with this medicine. Do not use the medication any more than instructed. Your ability to stay alert or to react quickly may be impaired by this medicine. Do not drive or operate machinery until you know how this medicine will affect you. This medicine passes into breast milk. Ask your doctor before . During , this medicine should be used only when clearly needed. Talk to your doctor about the risks and benefits. Do not start or stop any other medicines without first speaking to your doctor or pharmacist. Do not share this medicine with anyone who has not been prescribed this medicine. ?? Side Effects The following is a list of some common side effects from this medicine. Please speak with your doctor about what you should do if you experience these or other side effects. ??? breast pain or swelling ??? dizziness ??? hair growth ??? lightheadedness ??? nausea and vomiting Call your doctor or get medical help right away if you notice any of these more serious side effects: ??? chest pain ??? swelling of the legs, feet, and hands ??? fainting ??? fast or irregular heart beats ??? shortness of breath ??? red, peeling or blistering skin ??? sudden or unexplained weight gain A few people may have an allergic reaction to this medicine. Symptoms can include difficulty breathing, skin rash, itching, swelling, or severe dizziness. If you notice any of these symptoms, seek medical help quickly. ?? Extra Please speak with your doctor, nurse, or pharmacist if you have any questions about this medicine. ?? [email or web address] IMPORTANT NOTE: This document tells you briefly how to take your medicine, but it does not tell youall there is to know about it. Your doctor or pharmacist may give you other documents about your medicine. Please talk to them if you have any questions. Always follow their advice. There is a more complete description of this medicine available in [place]. Scan this code on your smartphone or tablet or use the web address below. You can also ask your pharmacist for a printout. If you have any questions, please ask your pharmacist. The display and use of this drug information is subject to Terms of Use. Copyright(c) 2022 [employer]. ?? [employer]. All rights reserved. This information is not intended as a substitute for professional medical care. Always follow your healthcare professional's instructions. ?? * Promise BRADFORD, Johanna: PERFORM Event Display: Patient Education Leaflets Authored Date: [id number] Carvedilol Oral Tablet ?? [address] Carvedilol Oral Tablet Brands: Coreg Uses This medicine is used for the following purposes: ??? heart attack ??? heart failure ??? high bloodpressure ??? irregular heart beat ??? prevent bleeding ?? Instructions Take the medicine with food. This medicine will work best if you take it at about the same time every day. Keep the medicine at room temperature. Avoid heat and direct light. It is important that you keep taking each dose of this medicine on time even if you are feeling well. If you forget to take a dose on time, take it as soon as you remember. If it is almost time for thenext dose, do not take the missed dose. Return to your normal schedule. Do not take 2 doses at one time. Drug interactions can change how medicines work or increase risk for side effects. Tell your healthcare providers about all medicines taken. Include prescription and oqgw-xkn-zxaroyw medicines, vitamins, and herbal medicines. Speak with your doctor or pharmacist before starting or stopping any medicine. This medicine may cause low blood sugar. Eat regular meals and exercise as instructed by your doctor. Tell your doctor if you have symptoms of low blood sugar such as nausea, sweating, cold skin, fast heartbeat, hunger, and irritability. If you have diabetes, this medicine may hide some signs of low blood sugar, such as fast heartbeat.Check your blood sugar regularly and for other signs of low blood sugar. ?? Cautions Tell your doctor and pharmacist if you ever had an allergic reaction to a medicine. Do not use the medication any more than instructed. Your ability to stay alert or to react quickly may be impaired by this medicine. Do not drive or operate machinery until you know how this medicine will affect you. Contact your doctor if you notice a change in the amount or darkening of your urine. Tell the doctor or pharmacist if you are , planning to be , or . Do not share this medicine with anyone who has not been prescribed this medicine. ?? Side Effects The following is a list of some common side effects from this medicine. Please speak with your doctor about what you should do if you experience these or other side effects. ??? diarrhea ??? dizziness or drowsiness ??? impotence Call your doctor or get medical help right away if you notice any of these more serious side effects: ??? swelling of the legs, feet, and hands ??? lack of energy and tiredness ??? slow heartbeat ??? low blood pressure ??? shortness of breath ??? sudden or unexplained weight gain A few people may have an allergic reaction to this medicine. Symptoms can include difficulty breathing, skin rash, itching, swelling, or severe dizziness. If you notice any of these symptoms, seek medical help quickly. ?? Extra Please speak with your doctor, nurse, or pharmacist if you have any questions about this medicine. ?? [email or web address] IMPORTANT NOTE: This document tells you briefly how to take your medicine, but it does not tell youall there is to know about it. Your doctor or pharmacist may give you other documents about your medicine. Please talk to them if you have any questions. Always follow their advice. There is a more complete description of this medicine available in [place]. Scan this code on your smartphone or tablet or use the web address below. You can also ask your pharmacist for a printout. If you have any questions, please ask your pharmacist. The display and use of this drug information is subject to Terms of Use. Copyright(c) 2022 [employer]. ?? 4468-5462 [employer]. All rights reserved. This information is not intended as a substitute for professional medical care. Always follow your healthcare professional's instructions. ?? EKG study * Event Display: ECG 12-Lead Authored Date: Please click on pdf link to open report * Event Display: ECG 12-Lead Authored Date: Ventricular Rate: 77 BPM Atrial Rate: 82 BPM QRS Duration: 96 ms Q-T Interval: 416 ms QTC Calculation(Bazett): 470 ms R Barnard: -25 degrees T Barnard: 33 degrees Atrial fibrillation Low voltage QRS Inferior infarct (cited on or before 26-MAR-2023) Abnormal ECG When compared with ECG of 26-MAR-2023 12:50, No significant change was found Confirmed by NANNETTE MAN MD ([id number]) on 03/27/2023 8:03:56 AM Mobile: NANNETTE MAN MD * Event Display: ECG 12-Lead Authored Date: Please click on pdf link to open report * Event Display: ECG 12-Lead Authored Date: Ventricular Rate: 91 BPM Atrial Rate: 227 BPM QRS Duration: 94 ms Q-T Interval: 386 ms QTC Calculation(Bazett): 474 ms R Barnard: -18 degrees T Barnard: 4 degrees Atrial fibrillation Low voltage QRS Inferior infarct , age undetermined Abnormal ECG When compared with ECG of 20-SEP-2022 21:06, Atrial fibrillation has replaced Sinus rhythm Confirmed by SHARRI MILLS MD ([id number]) on 03/26/2023 2:33:37 PM Mobile: [facility] * Sonny Silverman RN: PERFORM, SIGN, VERIFY Event Display: [facility] Authored Date: Patient: ROLDAN JACINTO Age: 73 years Sex: Male : 1950 Associated Diagnoses: None Author: Sonny Silverman RN Findings Narrative/Incidental alert and oriented x3. denies pain. denies SOB. s/p watchmen procedure to right groin. site is C/D/I. VSS. tele: Afib with HR 60s. pt voided without issues. OOB with one assist. no event this shift. pt resting comfortably. will continue to monitor. . Laboratory * [facility] , RANJIT S: TRANSCRIBE Ernst Alas MD: VERIFY Brennan Loyola DO: SIGN Event Display: Result: Authored Date: [id number] Chest 2 Views Frontal and Lat Reason: Post appendage closure device COMPARISON: 09/23/2022 FINDINGS: LINES AND TUBES: None. LUNGS AND PLEURA: Diminished lung volumes with mild bibasilar atelectasis. Trace left effusion. No pneumothorax. HEART, MEDIASTINUM AND LEI: Heart is normal in size. Normal mediastinal and hilar contour. Suboptimal examination limits evaluation of the atrial appendage device, however metallic density appears overlying the left cardiac border. BONES AND SOFT TISSUES: No acute abnormality. IMPRESSION: Left atrial appendage device partially imaged in the expected location of the left atrial appendagealthough not well evaluated due to technique. Trace left effusion. I have personally reviewed the images and I agree with this report. WSN: [id number] Ordering Physician: Vero Masters Dictated By: Brennan Loyola DO Dictated Date/Time: 03/27/23 10:51 a Reviewed By: Ernst Alas MD Signed By: Ernst Alas MD Signed Date/Time: 03/27/23 10:56 am Transcribed By: RAMÓN Transcribed Date/Time: 03/27/23 10:37 am Patient Care team information Care Team Personnel Name: Nayeli Fernandez RN Position: [facility] RN Member Role: Primary Care Nurse Name: Erin Pendleton RN Position: [facility] RN Member Role: Primary Care Nurse Name: Sonny Silverman RN Position: [facility] RN Member Role: Primary Care Nurse Name: Luciano Hernandez MD Position: [facility] Renal MD Member Role: [employer]etime Consulting Physician Address: Address: [address] [facility] [place] [address]- [place] Name: Brennan Tyson MD Position: [facility] Physician - Primary Care Member Role: PCP Address: Address: [address] [place] [address]- Name: Roxy Akers RN Position: [facility]B Nurse Member Role: Primary Care Nurse Name: Lydia BRADFORD, Flores Position: [facility] RN Member Role: Primary Care Nurse Care Team Related Persons Name: PRABHAKAR JACINTO Address: home [address] [place] [address] Name: KANG JACINTO Name: JOSE SHAW Address: [place] [address] Name: ANUM DUBOSE Address: home [address] [place] [address]
--- OUTSIDE RECORDS SUMMARY | 2023-08-20 10:44 | XMS_ITS | Continuity of Care Document ---
Author Name Unknown Organization [facility] Adult Address [address] [place] [address]- Care Team Providers Care Wick Tender Name Role Phone Brennan Tyson MD Primary Care Physician [facility] Date(s): 03/11/23 - 04/10/23 [facility] [address] [place] [address]- Allergies, Adverse Reactions, Alerts Substance Reaction Severity [...] 1Result Comment: [08/12/2018] [facility] [id number] 2Result Comment: [08/12/2018] [facility] [id number] Medications Advair Diskus 500 mcg-50 mcg inhalation [...] 03/27/23 10:47:00 EDT, Route to Pharmacy Electronically, [facility], Partial fill upon patient request if the prescription is for a schedule II opioi... Start Date: 03/27/23 Status: Ordered atorvastatin 40 mg oral tablet 1 tablet, By Mouth, Daily, # 90 tablet, 1 Refills, Maintenance, 02/22/23 10:19:00 EDT, [facility], 165, cm, 02/21/23 9:40:00 EDT, Height, 85, kg, 01/15/23 14:55:00 EDT, Dry Weight Start Date: 02/22/23 Status: Ordered bumetanide 1 mg oral tablet 1 mg, 1, tablet, By Mouth, Daily, dose reduction, # 30 tablet, Refills 5, Tot. Refills 5, Maintenance, 03/13/23 11:25:00 EDT, Route to Pharmacy Electronically, [facility]pharmacy #[id number], Partial fill upon patient request if the prescription is for a schedule... Start Date: 03/13/23 Status: Ordered carvedilol 25 mg oral tablet 1, tablet, By Mouth, 2 times a day, # 180 tablet, Refills 3, Maintenance, 02/26/23 16:11:00 EDT, Route to Pharmacy Electronically, [facility], 165, cm, 02/21/23 9:40:00 EDT, Height, 85, [...] # 45 tablet, 4 Refills, [facility], 167.6, cm, 04/01/22 8:47:00 EDT, Height Start Date: 06/07/22 Status: Ordered fluticasone 50 mcg/inh nasal spray 2 sprays, Nares, Both, Daily, Maintenance, 08/18/22 17:16:00 EDT, [place], Partial fill upon patient request if the [...] 30 tablet, 1 Refills, Maintenance,02/21/23 10:02:00 EDT, [facility]/pharmacy #1157, Partial fill upon patient [...] kg... Start Date: 10/18/22 Status: Ordered Pen [place], 31 G x 5 mm BD Ultra [...] 03/27/23 10:46:00 EDT, Route to Pharmacy Electronically, [facility], Partial fill upon patient [...] tablet, 1 Refills, Maintenance, 02/27/23 10:11:00 EDT, [facility], 165, cm, 02/21/23 9:40:00 EDT, Height, 85, kg, 01/15/23 14:55:00 EDT, Dry Weight Start Date: 02/27/23 Status: Ordered tamsulosin 0.4 mg oral capsule See Instructions, TAKE 1 CAPSULE BY MOUTH DAILY 30 MINUTES AFTER THE SAME MEAL, # 90 capsule, Refills 1, Maintenance, 11/08/22 11:58:00 EST, Instructions Replace Required Details, Route to Pharmacy Electronically, [facility] 29056, 165, cm, 10/18/22 16... Start Date: 11/08/22 [...] Team Personnel Name: Nayeli Fernandez RN Position: [facility] RN Member Role: Primary Care Nurse Name: Sonny Silverman RN Position: [facility] RN Member Role: Primary Care Nurse Name: Luciano Hernandez MD Position: [facility] Renal MD Member Role: [employer]etime Consulting Physician Address: Address: [address] [place] [address] [address] [facility] [place] [address]- Name: Brennan Tyson MD Position: [facility] Physician - Primary Care Member Role: PCP Address: Address: [address] [place] [address]- Name: Roxy Akers RN Position: [facility] AMB Nurse Member Role: Primary Care Nurse Name: Flores Freeman RN Position: [facility] RN Member Role: Primary Care Nurse Care Team Related Persons Name: PRABHAKAR JACINTO Address: home [address] [place] [address] Name: KANG JACINTO Name: JOSE SHAW Address: [place] [address] Name: ANUM DUBOSE Address: home [address] [place] [address]
--- OUTSIDE RECORDS SUMMARY | 2023-08-20 10:44 | XMS_ITS | Continuity of Care Document ---
Author Name Unknown Organization [facility] Adult Address [address] [place] [address]- Care Team Providers Care Chainer Name Role Phone Brennan Tyson MD Primary Care Physician [facility]counter [facility] Date(s): 10/23/22 - 11/22/22 [facility] [place] [address]- Allergies, Adverse Reactions, Alerts Substance Reaction Severity [...] tetanus/diphtheria/pertussis, acel(Tdap) 10/20/13 Given 1Result Comment: [08/12/2018] [facility] [id number] 2Result Comment: [08/12/2018] [facility] [id number] Medications Advair Diskus 500 mcg-50 mcg inhalation [...] tablet, 1 Refills, Maintenance, 07/08/22 0:13:00 EDT, [facility], 167.6, cm, 06/18/22 14:40:00 EDT, Height Start Date: 07/08/22 Status: Ordered buPROPion 150 mg/24 hours (XL) oral tablet, extended release 1 tablet = 150 mg, By Mouth, Every 24 hours, # 14 tablet, 0 Refills, Maintenance, 10/18/22 17:03:00EST, [facility]57, Partial fill upon patient [...] Refills, Maintenance, 10/20/22 11:47:00 EST, ER Tablet, [facility], Partial fill upon patient request if the prescription is for a... Start Date: 10/20/22 Status: Ordered carvedilol 25 mg oral tablet 1, tablet, By Mouth, 2 times a day, # 180 tablet, Refills 3, Route to Pharmacy Electronically, [facility], 167.6, cm, 11/21/21 9:53:00 EST, Height Start [...] # 45 tablet, 4 Refills, [facility], 167.6, cm, 04/01/22 8:47:00 EDT, Height Start Date: 06/07/22 Status: Ordered fluticasone 50 mcg/inh nasal spray 2 sprays, Nares, Both, Daily, Maintenance, 08/18/22 17:16:00 EDT, [facility], Partial fill upon patient request if the [...] mL, 5 Refills, Maintenance, 10/17/22 11:51:00 EST, [facility], Partial fill upon [...] Stop 04/04/23 15:00:00 EDT, 04/09/22 15:00:00 EDT, [facility]1157, 167.6, cm, 04/01/22 8:47:00 EDT, [...] kg... Start Date: 10/18/22 Status: Ordered Pen [place], 31 G x 5 mm BD Ultra [...] tablet, 1 Refills, Maintenance, 10/28/22 8:47:00EST, Tablet, [facility], 165, cm, 10/18/22 16:17:00 EST, Height, 103, kg, 09/19/22 22:30:00EST, Dry Weight Start Date: 10/28/22 Stop Date: 04/26/23 Status: Ordered tamsulosin 0.4 mg oral capsule See Instructions, TAKE 1 CAPSULE BY MOUTH DAILY 30 MINUTES AFTER THE SAME MEAL, # 90 capsule, Refills 1, Maintenance, 11/08/22 11:58:00 EST, Instructions Replace Required Details, Route to Pharmacy Electronically, [facility], 165, cm, 10/18/22 16... Start Date: 11/08/22 [...] Care Nurse Name: Luciano Hernandez MD Position: [facility] Renal MD Member Role: [employer] Consulting Physician Address: Address: [address] [facility] [place] [address]- [place] Name: Brennan Tyson MD Position: [facility] Primary Care Physician Member Role: PCP Address: Address: [address] [place] [address]- Name: Roxy Akers RN Position: S RN Member Role: Primary Care Nurse Name: Flores Freeman RN Position: S RN Member Role: Primary Care Nurse Name: Fabiana Hairston RN Position: S RN Member Role: Primary Care Nurse Care Team Related Persons Name: PRABHAKAR JACINTO Address: home [address] [place] [address] Name: KANG JACINTO Name: JOSE SHAW Address: [place] [address] Name: ANUM DUBOSE Address: home [address] [place] [address]
--- OUTSIDE RECORDS SUMMARY | 2023-08-20 10:44 | XMS_ITS | Continuity of Care Document ---
Author Name Unknown Organization [facility] Adult Address [address] [place] [address]- Care Team Providers Care Lease Attendant Name Role Phone Brennan Tyson MD Primary Care Physician [phone] [facility] 10[facility] - 11/25/22 [facility] [address] [place] [address]- Allergies, Adverse Reactions, Alerts Substance Reaction Severity [...] tetanus/diphtheria/pertussis, acel(Tdap) 10/20/13 Given 1Result Comment: [08/12/2018] [facility] [id number] 2Result Comment: [08/12/2018] [facility] [id number] Medications Advair Diskus 500 mcg-50 mcg inhalation [...] Refills, Maintenance, 07/08/22 0:13:00 EDT, [facility] STORE 23622, 167.6, cm, 06/18/22 14:40:00 EDT, Height Start Date: 07/08/22 Status: Ordered buPROPion 150 mg/24 hours (XL) oral tablet, extended release 1 tablet = 150 mg, By Mouth, Every 24 hours, # 14 tablet, 0 Refills, Maintenance, 10/18/22 17:03:00EST, [facility]/pharmacy #1157, Partial fill [...] 10/20/22 11:47:00 EST, ER Tablet, [facility]/pharmacy #1157, Partial fill upon patient request if the prescription is for a... Start Date: 10/20/22 Status: Ordered carvedilol 25 mg oral tablet 1, tablet, By Mouth, 2 times a day, # 180 tablet, Refills 3, Route to Pharmacy Electronically, [facility], 167.6, cm, 11/21/21 9:53:00 EST, Height Start [...] # 45 tablet, 4 Refills, [facility], 167.6, cm, 04/01/22 8:47:00 EDT, Height Start Date: 06/07/22 Status: Ordered fluticasone 50 mcg/inh nasal spray 2 sprays, Nares, Both, Daily, Maintenance, 08/18/22 17:16:00 EDT, [place], Partial fill upon patient request if the [...] mL, 5 Refills, Maintenance, 10/17/22 11:51:00 EST, [facility], Partial fill upon patient [...] Start Date: 10/18/22 Status: Ordered [place], 31 G x 5 mm BD Ultra [...] Refills, Maintenance, 10/28/22 8:47:00EST, Tablet, [facility]/pharmacy #1157, 165, cm, 10/18/22 16:17:00 EST, Height, 103, kg, 09/19/22 22:30:00EST, Dry Weight Start Date: 10/28/22 Stop Date: 04/26/23 Status: Ordered tamsulosin 0.4 mg oral capsule See Instructions, TAKE 1 CAPSULE BY MOUTH DAILY 30 MINUTES AFTER THE SAME MEAL, # 90 capsule, Refills 1, Maintenance, 11/08/22 11:58:00 EST, Instructions Replace Required Details, Route to Pharmacy Electronically, [facility] STORE 27372, 165, cm, 10/18/22 16... Start Date: 11/08/22 [...] Care Nurse Name: Luciano Hernandez MD Position: [facility] Renal MD Member Role: Lifetime Consulting Physician Address: Address: [address] [facility] [place] [address]- [place] Name: Brennan Tyson MD Position: [facility] Primary Care Physician Member Role: PCP Address: Address: [address] [place] [address]- Name: Roxy Akers RN Position: S RN Member Role: Primary Care Nurse Name: Flores Freeman RN Position: S RN Member Role: Primary Care Nurse Name: Fabiana Hairston RN Position: S RN Member Role: Primary Care Nurse Care Team Related Persons Name: PRABHAKAR JACINTO Address: home [address] [place] [address] Name: KANG JACINTO Name: JOSE SHAW Address: [place] [address] Name: ANUM DUBOSE Address: home [address] [place] [address]
--- OUTSIDE RECORDS SUMMARY | 2023-08-20 10:44 | XMS_ITS | Continuity of Care Document ---
Author Name Unknown Organization [facility] ter Address [address] [place] [address]- Care Team Providers Care Clinical Trials Specialist Name Role Phone Brennan Tyson MD Primary Care Physician [phone] [facility]): 08/[facility]/22 - 09/19/[address] [address] Attending Physician: Not on Staff, Attending MD Admitting Physician: Not on Staff, Admitting MD Referring Physician: Not on Staff, Referring MD Allergies, Adverse Reactions, Alerts Substance Reaction [...] Given 1Result Comment: [08/12/2018] [facility] [id number] 2Result Comment: [08/12/2018] [facility] [id number] Medications Advair Diskus 500 mcg-50 mcg inhalation [...] tablet, 1 Refills, Maintenance, 07/08/22 0:13:00 EDT, [facility] STORE 10475, 167.6, cm, 06/18/22 14:40:00 EDT, Height Start Date: 07/08/22 Status: Ordered carvedilol 25 mg oral tablet 1, tablet, By Mouth, 2 times a day, # 180 tablet, Refills 3, Route to Pharmacy Electronically, [facility] STORE 77575, 167.6, cm, 11/21/21 9:53:00 EST, Height Start Date: 02/05/22 Status: Ordered Centrum Silver Men's 1 tablet, By Mouth, Daily, 0 Refills, Maintenance, 09/19/17 9:44:06 Start Date: 09/19/17 Status: Ordered CPAP Machine See Instructions, # [...] # 180 tablet, 5 Refills, [facility], 167.6, cm, 11/21/21 9:53:00 EST, Height Start Date: 02/05/22 Status: Ordered fenofibrate 160 mg oral tablet 0.5 tablet, By Mouth, Daily, # 45 tablet, 4 Refills, [facility] STORE 55293, 167.6, cm, 04/01/22 8:47:00 EDT, Height Start Date: 06/07/22 Status: Ordered fluticasone 50 mcg/inh nasal spray 2 sprays, Nares, Both, Daily, Maintenance, 08/18/22 17:16:00 EDT, [place], Partial fill upon patient request if the prescription is for a schedule II opioid drug. Start Date: 08/18/22 Status: Ordered furosemide 20 mg oral tablet [...] opioid drug. Start Date: 08/18/22 Status: Ordered lisinopril 20 mg oral tablet 40 mg, 2, tablet, By Mouth, Daily, Maintenance, 08/18/22 17:17:00 EDT, Partial fill upon patient request if the prescription is for a schedule II opioid drug. Start Date: 08/18/22 Status: Ordered LORazepam 0.5 mg oral tablet 1 tablet = 0.5 mg, By Mouth, Daily, PRN as needed for anxiety, Maintenance, 08/18/22 17:17:00 EDT, Table[place], Partial fill upon patient request if the prescription is for a schedule II opioid drug. Start Date: 08/18/22 Status: Ordered minoxidil 2.5 mg oral tablet [...] 15:00:00 EDT, 04/09/22 15:00:00 EDT, [facility]/pharmacy #1157, 167.6, cm, 04/01/22 8:47:00 EDT, Height [...] Start Date: 11/04/18 Status: Ordered Potassium Chloride (Xxe-Awei-Eba 10) 10 mEq oral tablet, extended release 1 tablet, By Mouth, Daily, # 90 tablet, 3 Refills, [facility] STORE 57779, 167.6, cm, 06/06/21 9:25:00 EDT, Height, 90.7, kg, 09/08/19 8:17:00 EST, Dry Weight Start Date: 08/20/21 Status: Ordered Rollator Walker Rollator Walker, See [...] Replace Required Details, Route to Pharmacy Electronically, [facility] STORE 83123, 167.6, cm, 02/22/22 7:57:00 EDT, Height Start [...] Other: quit 2006; entered on: 09/19/17 Sex Consult note * Kasia RINCON, Teja E: MODIFY, MODIFY, PERFORM, MODIFY Event Display: Consult Authored Date: Patient: ??ROLDAN JACINTO ? Age:??72 Years?Sex:??Male?:??1950?? Chief Complaint/Reason for Consult RP hematoma History of Present Illness Roldan is a 72-year-old??gentleman with history of??A. fib on Eliquis, CAD status post PCI,??mild??aortic insufficiency,??COPD on 2 L of home oxygen,??CKD stage III AAA,??MDD, type 2 diabetes??who ispresenting??to the ED??with sudden onset right flank and groin pain.?? Per the patient the pain woke him up from sleep around 6 in the morning??and he represented as sharp??groin pain that was constant.?? He had previous kidney stones??and he described this very similar to that pain.?? He called EMS who brought him??into [facility]??ED.?? In the emergency room he was afebrile and hemodynamically stable. ??His lowest blood pressure was in the??systolic 90s??which is responsive to a 1 L bolus.?? His labs were significant for a leukocytosis to 17 with a left shift, and a hemoglobin and hematocrit have dropped from 10 and 32.5-8.7 and 29.3 in the span of a couple of hours.?? For this, he receiveda unit of packed red blood cells.?? His INR was 1.3 his PT was 13 his APTT was within normal limits.?? His creatinine was 1.9 up from what seems to be his best baseline at 1.2.?? He was COVID-negative.?? CT of the abdomen pelvis with and without showed a large right subcapsular renal and right retroperitoneal hematoma with evidence of active extravasation.?? They measured the hematoma at 13.1 x 13.7 x 17.2 cm with mass- effect.?? IR brought the patient to the suite for angiography where they??found no evidence of active bleeding.?? Surgery was consulted for possible surgical intervention.?? Atthis time the patient denies any chest pain, shortness of breath, nausea, vomiting, diarrhea, constipation, dysuria. ?? Physical Exam General: no acute distress, non toxic, resting comfortably HEENT: PERRLA, MMM Neck: midline trachea, no deformities Lungs: nonlabored breathing. Not on supplemental O2 Heart: RRR Abdomen: Soft, mildly tender??to the??right lower quadrant??or right groin,??not distended. ??Protuberant abdomen.?? No flank tenderness.?? No??skin changes noted??on the bilateral flanks. Extremities: no deformities, no edema, palpable pulses Assessment/Plan Roldan is a??72-year-old gentleman with a complex medical history??presenting with a spontaneous??right retroperitoneal hematoma??that is not expanding.?? He is??currently hemodynamically stable downin the ED.?? IR intervention found no active bleeding??despite??CT with IV contrast finding active extra have??prior.?? The patient's exam is benign at this time. ??His vitals??are??stable.?? He did have a??drop in his??hemoglobin??this morning of about 1.5 g??for which she received a unit of??packed red blood cells.?? We recommend??trending??his H&H??every 6 hours??until they stabilize?? However no acute interval surgical intervention is required at this time. We will continue to follow. ? Recs: No acute surgical intervention Admit to medicine Q6hr H&H Hold anticoagulation Serial exams Remainder of care per primary team ? Please page ACS/EGS [id number] for any concerns Discussed with Dr. Cruz Problem List/Past Medical History Ongoing Anxiety Aortic insufficiency (mild to modrate on echo 08/10) Arteriosclerotic heart disease (ASHD) Atrial fibrillation Atypical angina CAD S/P percutaneous coronary angioplasty Chronic kidney disease, stage 3a COPD without exacerbation CVA (cerebral vascular accident) Diastolic dysfunction Dilated aortic root/ Oct 2017 Esophageal reflux Essential hypertension History of COPD Hyperlipidemia Major depression in partial remission Nephrolithiasis Obese class I Obesity RICKIE (obstructive sleep apnea) Type 2 diabetes mellitus with renal manifestations Historical No qualifying data Procedure/Surgical History Adenoidectomy Laparoscopy, surgical, gastric restrictive procedure; longitudinal gastrectomy (ie, sleeve gastrectomy) Tonsillectomy Adrenalectomy Home Medications apixaban: 1 tablet, By Mouth, 2 times a day Aspirin: 81 mg = 1 tablet, By Mouth, Daily Atorvastatin: 1 tablet, By Mouth, Daily Carvedilol: 1 tablet, By Mouth, 2 times a day Duloxetine: 60 mg = 1 capsule, By Mouth, Daily, dose increase Duloxetine: 30 mg = 1 capsule, By Mouth, Daily, to be combined with 60mg capsule at time of next refill for total daily dose of 90mg Durable Medical Equipment: See Instructions, 1 box = 100 lancetsCheck blood sugar bidicd 10 E11.9 Durable Medical Equipment (One Touch Verio glucometer): See Instructions, Test glucose levels bidUse with One Touch test strips and lancetsICD 10 E11.9 Durable Medical Equipment (One Touch Verio test strips): See Instructions, Use with One Touch Verioglucometer to check glucose bidICD 10 E 11.9 Durable Medical Equipment: See Instructions, BiPAP 20/15 cm with a heated humidifier. Recommend ordering a machine with compliance data tracking capabilities and following residual AHI.DX RICKIE G47.33 Durable Medical Equipment: See Instructions, Cpap supplies- mask, tubing, filters, headgear, water chamber, chin strapdx RICKIE G47.33 Durable Medical Equipment (Rollator Walker): See Instructions, use daily for all ADL's Fenofibrate: 0.5 tablet, By Mouth, Daily Fluticasone Nasal: 2 sprays, Nares, Both, Daily Fluticasone-Salmeterol: 1 puffs, Inhalation, 2 times a day Furosemide: 20 mg = 1 tablet, By Mouth, Daily Isosorbide Mononitrate: 30 mg = 1 tablet, By Mouth, Daily in AM Lisinopril: 40 mg = 2 tablet, By Mouth, Daily Lorazepam: 0.5 mg = 1 tablet, By Mouth, Daily, PRN (as needed for anxiety) Minoxidil: 2.5 mg = 1 tablet, By Mouth, Daily Montelukast: 10 mg = 1 tablet, By Mouth, Daily at bedtime Multivitamin With Minerals: 1 tablet, By Mouth, Daily Nitroglycerin: 0.4 mg = 1 tablet, Sublingual, Every 5 minutes, PRN (for chest pain) Omeprazole: 1 capsule, By Mouth, 2 times a day Potassium Chloride: 1 tablet, By Mouth, Daily Ropinirole: 2 mg = 2 tablet, By Mouth, Daily at bedtime Tamsulosin: See Instructions, TAKE 1 CAPSULE BY MOUTH DAILY 30 MINUTES AFTER THE SAME MEAL umeclidinium: 1 each, Inhalation, Every 24 hours, doses should be taken at least 24 hours apart Allergies HORSE SERUM PROTEINS AB.IGE.RAST CLASS labetalol tetanus toxoid Social History Alcohol Use: Never., 12/23/2018 Employment/School Status: Retired., 10/08/2019 Exercise Regular exercise: No., 03/27/2020 Home/Environment Living situation: Home/Independent. Lives with: Spouse., 10/08/2019 Nutrition/Health Diet: Regular., 03/27/2020 Sexual Gender identity: Identifies as male. Self described orientation: Straight or heterosexual., 10/08/2019 Substance Abuse Use: Never., 10/08/2019 Tobacco Former smoker, Other: quit 2006. Type: Cigarettes., 09/19/2017 Family History Mother (): CAD - Coronary artery disease; Hypertension Father (): CLL (chronic lymphocytic leukemia) Brother: Hypertension Sister (): Hypertension Lab Results Labs Last 24 Hours No qualifying data available. Patient Care team information Care Team Personnel Name: Ruby Hernández RN Position: [facility] RN Member Role: Primary Care Nurse Name: Brennan Tyson MD Position: [facility] Primary Care Physician Member Role: PCP Address: Address: [address] [place] [address] Name: Roxy Akers RN Position: [facility] RN Member Role: Primary Care Nurse Care Team Related Persons Name: PRABHAKAR JACINTO Address: home [address] [place] [address] Name: RUBY JACINTO Name: JOSE SHAW Address: [place] [address] Name: ANUM DUBOSE Address: home [address] [place] [address]
--- OUTSIDE RECORDS SUMMARY | 2023-08-20 10:44 | XMS_ITS | Continuity of Care Document ---
Author Name Unknown Organization [facility] ter Address [address] [place] [address]- Care Team Providers Care Credit Cashier Name Role Phone Brennan Tyson MD Primary Care Physician [facility] Date[facility]s): 12/06/19 - 12/06/[address] [address]- [facility] Attending Physician: Nael Mcknight Allergies, Adverse Reactions, Alerts Substance Reaction Severity [...] acel(Tdap) 10/20/13 Given 1Result Comment: [08/12/2018] [facility] [id number] 2Result Comment: [08/12/2018] [facility] [id number] Medications Advair Diskus 500 mcg-50 mcg inhalation powder 1 puffs, Inhalation, 2 times a day, # 180 each, 0 Refills, Maintenance, Powder Start Date: 10/23/12 Status: Ordered amLODIPine 10 mg oral tablet 10 mg, 1, tablet, By Mouth, Daily, # 90 tablet, Refills 3, Tot. Refills 3, Maintenance, 12/30/18 13:42:36 EDT, Route to Pharmacy Electronically, [id number], [facility]/pharmacy #1157 Start Date: 12/30/18 Stop Date: [...] 06/17/19 6:49:21 EDT, Route to Pharmacy Electronically, [id number], [facility]/pharmacy #1157 Start Date: 06/17/19 Status: [...] tablet, 3 Refills, Maintenance, 12/01/19 13:16:00 EST, [facility] STORE 74004, 167.6, cm, 11/24/19 9:18:00 EST, Height, 90.7, [...] 10/07/18 8:59:29 EST, Route to Pharmacy Electronically, [id number], [facility]/pharmacy #1157 Start Date: 10/07/18 Status: Ordered LORazepam 0.5 mg oral tablet 1 tablet = 0.5 mg, By Mouth, Daily, PRN as needed for anxiety, for 30 days, # 30 tablet, 2 Refills,Acute 01/06/20 7:47:00 EDT, 10/08/19 7:47:00 EST, Tablet, [facility]/pharmacy #1157, 167.6, cm, 10/08/19 7:00:00 EST, Height, [...] 04/08/19 14:06:58 EDT, Route to Pharmacy Electronically, [id number], [facility]57 Start Date: 04/08/19 Status: Ordered [...]
--- OUTSIDE RECORDS SUMMARY | 2023-08-20 10:44 | XMS_ITS | Continuity of Care Document ---
Author Name Unknown Organization [facility] Adult Address Unknown Care Team Providers Care Inside Sales Recruiter Name Role Phone Brennan Tyson MD Primary Care Physician Encounter [facility] Date(s): 04/01/22 - 04/08/22 [facility] Encounter Diagnosis Encounter for Medicare annual wellness exam(Discharge Diagnosis) - 04/04/22 COPD without exacerbation(Discharge Diagnosis) - 04/04/22 Chronic kidney disease stage 3(Discharge Diagnosis) - 04/04/22 Dilated aortic root/ Oct 2017(Discharge Diagnosis) - 04/04/22 Attending Physician: Brennan Tyson MD Allergies, Adverse [...] acel(Tdap) 10/20/13 Given 1Result Comment: [08/12/2018] [facility] [id number] 2Result Comment: [08/12/2018] [facility] [id number] Medications Advair Diskus 500 mcg-50 mcg inhalation powder 1 puffs, Inhalation, 2 times a day, # 180 each, 0 Refills, Maintenance, Powder Start Date: 10/23/12 Status: Ordered amLODIPine 10 mg oral tablet 10 mg, 1, tablet, By Mouth, Daily, # 90 tablet, Refills 3, Tot. Refills 3, Maintenance, 08/26/21 13:26:00 EST, Route to Pharmacy Electronically, [facility]/pharmacy #1157, 167.6, cm, 05/07/21 16:16:00 EDT, Height, 90.7, kg, 09/08/19 8:17:00 EST, Dry Weight Start Date: 08/26/21 Status: Ordered aspirin 81 mg oral delayed release tablet 81 mg, 1, tablet, By Mouth, Daily, # 30 tablet, Refills 0, Maintenance, 12/27/18 10:46:04 EDT Start Date: 12/27/18 Status: Ordered atorvastatin 40 mg oral tablet 1 tablet, By Mouth, Daily, # 90 tablet, 1 Refills, [facility] STORE 68832, 167.6, cm, 11/21/21 9:53:00 EST, Height Start Date: 02/05/22 Status: Ordered carvedilol 25 mg oral tablet 1, tablet, By Mouth, 2 times a day, # 180 tablet, Refills 3, Route to Pharmacy Electronically, [facility] STORE 85786, 167.6, cm, 11/21/21 9:53:00 EST, Height Start [...] capsule, 11 Refills, Maintenance, 04/01/22 9:18:00 EDT, [facility]/pharmacy #1157, Partial fill upon patient request if the prescription isfor a schedule II opioid drug., 167.6, cm, 04/01/22... Start Date: 04/01/22 Status: Ordered Eliquis 5 mg oral tablet 1 tablet, By Mouth, 2 times a day, # 180 tablet, 5 Refills, [facility] STORE 76947, 167.6, cm, 11/21/21 9:53:00 EST, Height Start Date: 02/05/22 Status: Ordered fenofibrate 160 mg oral tablet 0.5 tablet, By Mouth, Daily, # 45 tablet, 3 Refills, Maintenance, 05/28/21 7:19:00 EDT, [facility]/pharmacy #1157, 167.6, cm, 05/07/21 16:16:00 EDT, [...] tablet, Refills 1, Route to Pharmacy Electronically, [facility] STORE 32164, 167.6, cm, 11/21/21 9:53:00 EST, Height Start [...] Start Date: 11/04/18 Status: Ordered Potassium Chloride (Rpb-Stye-Vcr 10) 10 mEq oral tablet, extended release 1 tablet, By Mouth, Daily, # 90 tablet, 3 Refills, [facility] STORE 25709, 167.6, cm, 06/06/21 9:25:00 EDT, Height, 90.7, [...] tablet, 1 Refills, Maintenance, 08/29/21 11:45:00 EST, [facility]/pharmacy #1157, 167.6, cm, 06/06/21 9:25:00 EDT, Height, 90.7, kg, 09/08/19 8:17:00 EST, Dry Weight Start Date: 08/29/21 Status: Ordered rOPINIRole 1 mg oral tablet 2 tablet = 2 mg, By Mouth, Daily at bedtime, # 180 tablet, 1 Refills, Maintenance, 12/22/20 12:40:00 EST, Tablet, [facility]/pharmacy #1157, 167.6, cm, 11/28/20 10:41:00 EST, Height, 90.7, kg, 09/08/19 8:17:00 EST, Dry Weight Start Date: 12/22/20 Stop Date: 06/20/21 Status: Ordered sertraline 100 mg oral tablet 1.5 tablet = 150 mg, By Mouth, Daily, dose increase, # 135 tablet, 3 Refills, Maintenance, 228:32:00 EDT, Tablet, [facility], dose increase, 167.6, cm, 02/22/22 7:57:00 EDT, Height Start Date: 02/22/22 Stop Date: 02/17/23 Status: Ordered tamsulosin 0.4 mg oral capsule See Instructions, TAKE 1 CAPSULE BY MOUTH DAILY 30 MINUTES AFTER THE SAME MEAL, # 90 capsule, Refills 1, Instructions Replace Required Details, Route to Pharmacy Electronically, [facility] STORE 41692, 167.6, cm, 02/22/22 7:57:00 EDT, Height Start [...] for Medicare annual wellness exam Discharge Diagnosis 04/04/22 COPD without exacerbation Discharge Diagnosis 04/04/22 Chronic kidney disease stage 3 Discharge Diagnosis 04/04/22 Dilated aortic root/ Oct 2017 Discharge Diagnosis 04/04/22 Vital Signs Most recent to oldest [Reference Range]: 1 Height 167.6 cm (04/01/22 8:47 AM) Weight 96.8 kg (04/01/22 8:47 AM) Oxygen Saturation [94-100 %] 95 % (04/01/22 8:47 AM) Pulse Rate [55-90 bpm] 59 bpm (04/01/22 8:47 AM) Body Mass Index [18.5-24.99] 34.46 *>HHI* (04/01/22 8:47 AM) Blood Pressure [90-138/55-84 mm Hg] 134/ 82mm Hg (04/01/22 8:47 AM) Blood pressure sites Arm, left (04/01/22 8:47 AM) Social History Social History Type Response Smoking Status Former smoker; Type: Cigarettes; Other: quit 2006; entered on: 09/19/17 Sex
--- OUTSIDE RECORDS SUMMARY | 2023-08-20 10:44 | XMS_ITS | Continuity of Care Document ---
Author Name Unknown Organization [facility] Adult Address [address] [place] [address]- Care Team Providers Care Stunt Driver Name Role Phone Marbella RINCON, Brennan Primary Care Physician [facility]): 06/25/20 - 07/25/20 [facility] [address] [place] [address]- [facility] Allergies, Adverse Reactions, Alerts Substance Reaction Severity [...] Given 1Result Comment: [08/12/2018] [facility] [id number] 2Result Comment: [08/12/2018] [facility] [id number] Medications Advair Diskus 500 mcg-50 mcg inhalation powder 1 puffs, Inhalation, 2 times a day, # 180 each, 0 Refills, Maintenance, Powder Start Date: 10/23/12 Status: Ordered amLODIPine 10 mg oral tablet 10 mg, 1, tablet, By Mouth, Daily, # 90 tablet, Refills 3, Tot. Refills 3, Maintenance, 06/02/20 13:26:00 EDT, Route to Pharmacy Electronically, [facility]/pharmacy #1157, 167.6, cm, 03/27/20 8:14:00 EDT, [...] 06/17/19 6:49:21 EDT, Route to Pharmacy Electronically, [id number], [facility]/pharmacy #1157 Start Date: 06/17/19 Status: Ordered [...] tablet, 3 Refills, Maintenance, 12/01/19 13:16:00 EST, [facility] STORE 28202, 167.6, cm, 11/24/19 9:18:00 EST, Height, 90.7, [...] 06/02/20 13:26:00 EDT, Route to Pharmacy Electronically, [facility]/pharmacy #1157, 167.6, cm, 03/27/20 8:14:00 EDT,Height, [...] 1 Refills, Maintenance, 06/25/20 12:28:00 EDT, Tablet, [facility], 167.6, cm, 03/27/20 8:14:00 EDT, Height, 90.7, kg, 11/20/19 8:17:00 EST, Dry Weight Start Date: 06/25/20 [...] 04/08/19 14:06:58 EDT, Route to Pharmacy Electronically, [id number], [facility] Start Date: 04/08/19 Status: Ordered [...]
--- OUTSIDE RECORDS SUMMARY | 2023-08-20 10:44 | XMS_ITS | Continuity of Care Document ---
Author Name Unknown Organization [facility] Adult Address [address] [place] [address]- Care Team Providers Care Horticultural Worker Name Role Phone Brennan Tyson MD Primary Care Physician [place] [facility] [place] 11[place]01/20 [facility] [address] [place] [address]- Encounter Diagnosis Encounter for Medicare annual wellness exam(Discharge Diagnosis) - 10/25/20 Obstructive sleep apnea(Discharge Diagnosis) - 10/25/20 Atrial fibrillation(Discharge Diagnosis) - 10/25/20 CVA (cerebral vascular accident)(Discharge Diagnosis) - 10/25/20 Chronic kidney disease stage 3(Discharge Diagnosis) - 10/25/20 Dilated aortic root/ Oct 2017(Discharge Diagnosis) - 10/25/20 Type 2 diabetes mellitus with renal manifestations(Discharge Diagnosis) - 10/25/20 Attending Physician: Brennan Tyson MD Allergies, Adverse Reactions, Alerts Substance Reaction Severity Status labetalol Active tetanus toxoid Active HORSE SERUM PROTEINS AB.IGE.RAST CLASS Active Immunizations Given and Recorded Vaccine Date Status Refusal Reason Influenza Virus Vaccine (oldterm) 08/16/20 Recorde d influenza virus vaccine, inactivated 07/09/19 Give n influenza virus vaccine, inactivated 1 08/12/18 Gi tiera influenza virus vaccine, inactivated 07/24/17 Give n pneumococcal 23-valent vaccine 2 08/12/18 Given pneumococcal 23-valent vaccine 07/22/11 Given pneumococcal 13-valent vaccine 05/07/16 Given Zoster Vaccine Live 07/27/15 Given tetanus/diphtheria/pertussis, acel(Tdap) 10/20/13 Given 1Result Comment: [08/12/2018] [facility] [id number] 2Result Comment: [08/12/2018] [facility] [id number] Medications Advair Diskus 500 mcg-50 mcg inhalation powder 1 puffs, Inhalation, 2 times a day, # 180 each, 0 Refills, Maintenance, Powder Start Date: 10/23/12 Status: Ordered amLODIPine 10 mg oral tablet 10 mg, 1, tablet, By Mouth, Daily, # 90 tablet, Refills 3, Tot. Refills 3, Maintenance, 06/02/20 13:26:00 EDT, Route to Pharmacy Electronically, [facility]/pharmacy #1157, 167.6, cm, 03/27/20 8:14:00 [...] 06/17/19 6:49:21 EDT, Route to Pharmacy Electronically, [id number], [facility]/pharmacy #1157 Start Date: 06/17/19 Status: [...] Refills, Maintenance, 12/01/19 13:16:00 EST, [facility], 167.6, cm, 11/24/19 9:18:00 EST, Height, 90.7, kg, 09/08/19 8:17:00 EST, Dry Weight Start Date: 12/01/19 Status: Ordered hydrochlorothiazide 12.5 mg oral tablet See Instructions, 2 tabs po qAm and 1 tab qPM, # 90 each, 5 Refills, Maintenance, 08/14/20 16:03:00EDT, [facility]/pharmacy #1157, dose increase, 167.6, cm, 03/27/20 [...] 06/02/20 13:26:00 EDT, Route to Pharmacy Electronically, [facility]/pharmacy #1157, 167.6, cm, 03/27/20 8:14:00 EDT,Height, 90.7, kg, 09/08/19 8:17:00 EST, Dry Weight Start Date: 06/02/20 Status: Ordered LORazepam 0.5 mg oral tablet 1 tablet = 0.5 mg, By Mouth, Daily, PRN as needed for anxiety, for 30 days, # 30 tablet, 2 Refills,Acute 11/13/20 9:56:00 EST, 08/15/20 9:56:00 EDT, Tablet, [facility]/pharmacy #1157, 167.6, cm, 03/27/20 8:14:00 [...] 0 Refills, Soft Stop, 08/14/20 16:03:00 EDT, [facility]/pharmacy #1157, 167.6, cm, 03/27/20 8:14:00 [...] 10/25/20 7:20:00 EST, Route to Pharmacy Electronically, [facility]/pharmacy #1157, 167.6, cm, 03/27/20 8:14:00 [...] for Medicare annual wellness exam Discharge Diagnosis 10/25/20 Obstructive sleep apnea Discharge Diagnosis 10/25/20 Atrial fibrillation Discharge Diagnosis 10/25/20 CVA (cerebral vascular accident) Discharge Diagnosis 10/25/20 Chronic kidney disease stage 3 Discharge Diagnosis 10/25/20 Dilated aortic root/ Oct 2017 Discharge Diagnosis 10/25/20 Type 2 diabetes mellitus with renal manifestations Discharge Diagnosis 10/25/20 Vital Signs Most recent to oldest [Reference Range]: 1 Height 167.6 cm (10/25/20 1:12 PM) Weight 95.7 kg (10/25/20 1:12 PM) Blood Pressure [90-138/55-84 mm Hg] 117/ 64mm Hg (10/25/20 8:15 AM) Blood pressure sites Arm, right (10/25/20 8:15 AM) Social History Social History Type Response Smoking Status Former smoker; Type: Cigarettes; Other: quit 2006; entered on: 09/19/17 Sex
--- OUTSIDE RECORDS SUMMARY | 2023-08-20 10:45 | XMS_ITS | Continuity of Care Document ---
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 Refills 3, Maintenance, 06/02/20 13:26:00 EDT, Route to Pharmacy Electronically, [facility]/pharmacy #1157, 167.6, cm, 03/27/20 8:14:00 [...] 06/17/19 6:49:21 EDT, Route to Pharmacy Electronically, [id number], [facility]/pharmacy #1157 Start Date: 06/17/19 Status: [...] Refills, Maintenance, 12/25/20 9:10:00 EST, [facility], 167.6, cm, 11/28/20 10:41:00 EST, Height, 90.7, [...] 06/02/20 13:26:00 EDT, [facility] 167.[facility], cm, 03/27/20 8:14:00 EDT,Height, 90.7, kg, 09/08/19 8:17:00 EST, Dry Weight Start Date: 06/02/20 Status: Ordered LORazepam 0.5 mg oral tablet 1 tablet = 0.5 mg, By Mouth, Daily, PRN as needed for anxiety, for 30 days, # 30 tablet, 2 Refills,Acute 02/26/21 11:08:00 EDT, 11/28/20 11:08:00 EST, [facility] 167.6, cm, 11/28/2109:41:00 EST, Height, 90.7, [...] 0 Refills, Soft Stop, 11/07/20 4:07:00 EST, [facility]/pharmacy #1157, 167.6, cm, 10/25/20 13:12:00 EST, Height, [...] 11 Refills, Maintenance, 11/28/20 11:02:00 EST, [facility], dose increase, 167.6, cm, 11/28/20 10:41:00 EST, Height, 90.7, kg, 09/08/19 8:17:00 EST, Dry Weight Start Date: 11/28/20 Stop Date: 11/23/21 Status: Ordered sertraline 100 mg oral tablet 2 tablet = 200 mg, By Mouth, Daily, DOSE INCREASE, # 60 tablet, 11 Refills, Maintenance, 01/08/21 14:15:00 EDT, Tablet, [facility]/pharmacy #1157, dose increase, 167.6, cm, 01/08/21 13:53:00 EDT, Height, 90.7, kg, 09/08/19 8:17:00 EST, Dry Weight Start Date: 01/08/21 Stop Date: 01/03/22 Status: Ordered tamsulosin 0.4 mg oral capsule 0.4 mg, 1, capsule, By Mouth, Daily, 30 minutes after the same meal, # 90 capsule, Refills 3, Tot. Refills 3, Maintenance, 10/25/20 7:20:00 EST, Route to Pharmacy Electronically, [facility]/pharmacy #1157, 167.6, cm, 03/27/20 8:14:00 [...] Major depression in partial remission Discharge Diagnosis 01/08/21 Type 2 diabetes mellitus with renal manifestations Discharge Diagnosis 01/08/21 Vital Signs Most recent to oldest [Reference Range]: 1 Height 167.6 cm (01/08/21 1:53 PM) Weight 98.6 kg (01/08/21 1:53 PM) Oxygen Saturation [94-100 %] 98 % (01/08/21 1:53 PM) Pulse Rate [55-90 bpm] 88 bpm (01/08/21 1:53 PM) Body Mass Index [18.5-24.99] 35.1 *>HHI* (01/08/21 1:53 PM) Blood Pressure [90-138/55-84 mm Hg] 122/ 78mm Hg (01/08/21 1:53 PM) Blood pressure sites Arm, left (01/08/21 1:53 PM) Social History Social History Type Response Smoking Status Former smoker; Type: Cigarettes; Other: quit 2006; entered on: 09/19/17 Sex
--- OUTSIDE RECORDS SUMMARY | 2023-08-20 10:45 | XMS_ITS | Continuity of Care Document ---
Author Name Unknown Organization [facility] Address [address] [place] [address]- Care Team Providers Care Test Specialist Name Role Phone Brennan Tyson MD Primary Care Physician [place] [facility] [place] 04/10/21 - 04/17/21 [facility] [address] [place] [address]- Encounter Diagnosis Abrasion of skin of left elbow(Discharge Diagnosis) - 04/10/21 Fall(Discharge Diagnosis) - 04/10/21 Unsteady gait(Discharge Diagnosis) - 04/10/21 Attending Physician: Inocencio Diez Referring Physician: Brennan Tyson MD Allergies, Adverse [...] tetanus/diphtheria/pertussis, acel(Tdap) 10/20/13 Given 1Result Comment: [08/12/2018] [facility] [place] [id number] 2Result Comment: [08/12/2018] [facility] [place] [id number] Medications Advair Diskus 500 mcg-50 mcg inhalation powder 1 puffs, Inhalation, 2 times a day, # 180 each, 0 Refills, Maintenance, Powder Start Date: 10/23/12 Status: Ordered amLODIPine 10 mg oral tablet 10 mg, 1, tablet, By Mouth, Daily, # 90 tablet, Refills 3, Tot. Refills 3, Maintenance, 06/02/20 13:26:00 EDT, [facility], cm, 03/27/20 8:14:00 EDT, Height, [...] 11 Refills, Maintenance, 02/28/21 15:05:00 EDT, Tablet, [facility]/pharmacy #1157, Partial fill upon patient request if the prescription is for a schedule II opioid drug., 167.6, cm, 02/07/21 9:57:00 EDT, [facility]igh... Start Date: 02/28/21 Status: Ordered carvedilol 25 mg oral tablet 25 mg, 1, tablet, By Mouth, 2 times a day, # 60 tablet, Refills 11, Tot. Refills 11, Maintenance, 02/28/21 16:34:00 EDT, Route to Pharmacy Electronically, [facility]/pharmacy #1157, 167.6, cm, 02/07/21 9:57:00 EDT, Height, [...] Refills, Maintenance, 12/25/20 9:10:00 EST, [facility], 167.6, cm, 11/28/20 10:41:00 EST, Height, 90.7, [...] each, 2 Refills, Maintenance, 02/12/21 7:40:00 EDT, [facility]/pharmacy #1157, dose increase, 167.6, cm, 02/07/21 9:57:00 [...] 13:26:00 EDT, Route to Pharmacy Electronically, [facility]/pharmacy #1157, 167.6, cm, 03/27/20 8:14:00 EDT,Height, 90.7, kg, 09/08/19 8:17:00 EST, Dry Weight Start Date: 06/02/20 Status: Ordered LORazepam 0.5 mg oral tablet 1 tablet = 0.5 mg, By Mouth, Daily, PRN as needed for anxiety, for 30 days, # 30 tablet, 2 Refills,Acute 06/26/21 15:17:00 EDT, 03/28/21 15:17:00 EDT, Tablet, [facility]/pharmacy #1157, 167.6, cm, :57:00 EDT, Height, 90.7, [...] capsule, 0 Refills, Maintenance, 02/01/21 7:55:00 EDT, [facility], 167.6, cm, 01/29/21 10:15:00 EDT, Height, 90.7, [...] tablet, 11 Refills, Maintenance, 08/31/20 11:42:00 EST, [facility]/pharmacy #1157, 167.6, cm, 03/27/20 8:14:00 EDT, Height, [...] Refills, Maintenance, 12/22/20 12:40:00 EST, Tablet, [facility]/pharmacy #1157, 167.6, cm, 11/28/20 10:41:00 EST, Height, 90.7, kg, 09/08/19 8:17:00 EST, Dry Weight Start Date: 12/22/20 Stop Date: 06/20/21 Status: Ordered sertraline 100 mg oral tablet 2 tablet = 200 mg, By Mouth, Daily, DOSE INCREASE, # 60 tablet, 11 Refills, Maintenance, 01/08/21 14:15:00 EDT, Tablet, [facility]/pharmacy #1157, dose increase, 167.6, cm, 01/08/21 13:53:00 EDT, Height, 90.7, kg, 09/08/19 8:17:00 EST, Dry Weight Start Date: 01/08/21 Stop Date: 01/03/22 Status: Ordered tamsulosin 0.4 mg oral capsule 0.4 mg, 1, capsule, By Mouth, Daily, 30 minutes after the same meal, # 90 capsule, Refills 3, Tot. Refills 3, Maintenance, 10/25/20 7:20:00 EST, Route to Pharmacy Electronically, [facility]/pharmacy #1157, 167.6, cm, 03/27/20 8:14:00 EDT, Height, [...] Diagnosis Diagnosis Type Effective Dates Health Status Cl inical Service Informant Abrasion of skin of left elbow Discharge Diagnosis 04/10/21 Fall Discharge Diagnosis 04/10/21 Unsteady gait Discharge Diagnosis 04/10/21 Vital Signs Most recent to oldest [Reference Range]: 1 Height 167.6 cm (04/10/21 12:50 PM) Weight 92.9 kg (04/10/21 12:50 PM) Oxygen Saturation [94-100 %] 97 % (04/10/21 12:50 PM) Pulse Rate [55-90 bpm] 86 bpm (04/10/21 12:50 PM) Body Mass Index [18.5-24.99] 33.07 *>HHI* (04/10/21 12:50 PM) Blood Pressure [90-138/55-84 mm Hg] 124/ 88mm Hg (04/10/21 12:50 PM) Mode of Delivery (Oxygen) Room air (04/10/21 12:50 PM) Blood pressure sites Arm, right (04/10/21 12:50 PM) Social History Social History Type Response Smoking Status Former smoker; Type: Cigarettes; Other: quit 2006; entered on: 09/19/17 Sex
--- OUTSIDE RECORDS SUMMARY | 2023-08-20 10:45 | XMS_ITS | Continuity of Care Document ---
Author Name Unknown Organization [facility] Address [address] [place] [address]- Care Team Providers Care Managing Consultant Name Role Phone Brennan Tyson MD Primary Care Physician Encounter [facility] Date(s): 10/23/22 - 11/22/22 [facility] [address] [place] [address]- Allergies, Adverse Reactions, Alerts Substance Reaction Severity [...] tetanus/diphtheria/pertussis, acel(Tdap) 10/20/13 Given 1Result Comment: [08/12/2018] [facility] [id number] 2Result Comment: [08/12/2018] [facility] [id number] Medications Advair Diskus 500 mcg-50 mcg inhalation [...] tablet, 1 Refills, Maintenance, 07/08/22 0:13:00 EDT, [facility], 167.6, cm, 06/18/22 14:40:00 EDT, Height Start Date: 07/08/22 Status: Ordered buPROPion 150 mg/24 hours (XL) oral tablet, extended release 1 tablet = 150 mg, By Mouth, Every 24 hours, # 14 tablet, 0 Refills, Maintenance, 10/18/22 17:03:00EST, [facility]/pharmacy #1157, Partial fill upon patient [...] Refills, Maintenance, 10/20/22 11:47:00 EST, ER Tablet, [facility]/pharmacy #1157, Partial fill upon patient request if the prescription is for a... Start Date: 10/20/22 Status: Ordered carvedilol 25 mg oral tablet 1, tablet, By Mouth, 2 times a day, # 180 tablet, Refills 3, Route to Pharmacy Electronically, [facility], 167.6, cm, 11/21/21 9:53:00 EST, Height Start [...] Mouth, Daily, # 45 tablet, 4 Refills, [facility], 167.6, cm, 04/01/22 8:47:00 EDT, Height Start Date: 06/07/22 Status: Ordered fluticasone 50 mcg/inh nasal spray 2 sprays, Nares, Both, Daily, Maintenance, 08/18/22 17:16:00 EDT, [place], Partial fill upon patient request if the [...] mL, 5 Refills, Maintenance, 10/17/22 11:51:00 EST, [facility], Partial fill upon patient [...] Stop 04/04/23 15:00:00 EDT, 04/09/22 15:00:00 EDT, [facility]/pharmacy #1157, 167.6, cm, 04/01/22 8:47:00 EDT, [...] kg... Start Date: 10/18/22 Status: Ordered [facility] [place], 31 G x 5 mm BD Ultra [...] tablet, 1 Refills, Maintenance, 10/28/22 8:47:00EST, Tablet, [facility]/pharmacy #1157, 165, cm, 10/18/22 16:17:00 EST, Height, 103, kg, 09/19/22 22:30:00EST, Dry Weight Start Date: 10/28/22 Stop Date: 04/26/23 Status: Ordered tamsulosin 0.4 mg oral capsule See Instructions, TAKE 1 CAPSULE BY MOUTH DAILY 30 MINUTES AFTER THE SAME MEAL, # 90 capsule, Refills 1, Maintenance, 11/08/22 11:58:00 EST, Instructions Replace Required Details, Route to [facility]acy Electronically, [facility], 165, cm, 10/18/22 16... Start Date: 11/08/22 [...] Care Nurse Name: Luciano Hernandez MD Position: [facility] Renal MD Member Role: Lifetime Consulting Physician Address: Address: [address] [facility] [place] [address]- [place] Name: Brennan Tyson MD Position: [facility] Primary Care Physician Member Role: PCP Address: Address: [address] [place] [id number]- Name: Roxy Akers RN Position: S RN Member Role: Primary Care Nurse Name: Flores Freeman RN Position: S RN Member Role: Primary Care Nurse Name: Fabiana Hairston RN Position: S RN Member Role: Primary Care Nurse Care Team Related Persons Name: PRABHAKAR JACINTO Address: home [address] [place] [id number] Name: KANG JACINTO Name: JOSE SHAW Address: [place] [address] Name: ANUM DUBOSE Address: home [address] [place] [id number]
--- OUTSIDE RECORDS SUMMARY | 2023-08-20 10:45 | XMS_ITS | Continuity of Care Document ---
Author Name Unknown Organization [facility] Address [address] [place] [address]- Care Team Providers Care Automatic Spinning Lathe Setter Name Role Phone Brennan Tyson MD Primary Care Physician Encounter [facility] Date(s): 01/07/23 - 02/06/23 [facility] [address] [place] [id number] Attending Physician: AdmJoy hernandez Admitting Physician: Admtr, [id number] Referring Physician: Admtr, [...] vaccine 11/17/20 R ecorded zoster vaccine, inactivated 3/17/21 Recorded zoster vaccine, inactivated 01/03/21 Recorded zoster vaccine, inactivated 10/03/20 Recorded Influenza Virus Vaccine (oldterm) 08/16/20 Recorde d pneumococcal 23-valent vaccine 2 08/12/18 Given pneumococcal 23-valent vaccine 07/22/11 Given pneumococcal 13-valent vaccine 05/07/16 Given Zoster Vaccine Live 07/27/15 Given tetanus/diphtheria/pertussis, acel(Tdap) 10/20/13 Given 1Result Comment: [08/12/2018] [facility] [id number] 2Result Comment: [08/12/2018] [facility] [id number] Medications Advair Diskus 500 mcg-50 mcg inhalation powder 1 puffs, Inhalation, 2 times a day, 0 Refills, Maintenance, 10/23/12 12:03:02 EST, Powder Start Date: 10/23/12 Status: Ordered atorvastatin 40 mg oral tablet 1 tablet, By Mouth, Daily, # 90 tablet, 1 Refills, Maintenance, 07/08/22 0:13:00 EDT, [facility], 167.6, cm, 06/18/22 14:40:00 EDT, Height Start Date: 07/08/22 Status: Ordered carvedilol 25 mg oral tablet 1, tablet, By Mouth, 2 times a day, # 180 tablet, Refills 3, Route to Pharmacy Electronically, [facility], 167.6, cm, 11/21/21 9:53:00 EST, Height Start [...] Mouth, Daily, # 45 tablet, 4 Refills, [facility] ST[facility] 25540, 167.6, cm, 04/01/22 8:47:00 EDT, Height Start Date: 06/07/22 Status: Ordered fluticasone 50 mcg/inh nasal spray 2 sprays, Nares, Both, Daily, Maintenance, 08/18/22 17:16:00 EDT, [place], Partial fill upon patient request if the [...] mL, 5 Refills, Maintenance, 10/17/22 11:51:00 EST, [facility], Partial fill upon patient [...] Stop 04/04/23 15:00:00 EDT, 04/09/22 15:00:00 EDT, [facility]/pharmacy #1157, 167.6, cm, 04/01/22 8:47:00 EDT, [...] kg... Start Date: 10/18/22 Status: Ordered Pen [place], 31 G x 5 mm BD Ultra [...] tablet, 1 Refills, Maintenance, 10/28/22 8:47:00EST, Tablet, [facility]/pharmacy #1157, 165, cm, 10/18/22 16:17:00 EST, Height, 103, kg, 09/19/22 22:30:00EST, Dry Weight Start Date: 10/28/22 Stop Date: 04/26/23 Status: Ordered tamsulosin 0.4 mg oral capsule See Instructions, TAKE 1 CAPSULE BY MOUTH DAILY 30 MINUTES AFTER THE SAME MEAL, # 90 capsule, Refills 1, Maintenance, 11/08/22 11:58:00 EST, Instructions Replace Required Details, Route to Pharmacy Electronically, [facility] STORE 96232, 165, cm, 10/18/22 16... Start Date: 11/08/22 [...] on: 09/19/17 Sex Note * Event Display: Cardiovascular Result Scanned Authored Date: Patient Care team information Care Team Personnel Name: Nayeli Fernandez RN Position: [facility] RN Member Role: Primary Care Nurse Name: Erin Pendleton RN Position: [facility] RN Member Role: Primary Care Nurse Name: Luciano Hernandez MD Position: [facility] Renal MD Member Role: Lifetime Consulting Physician Address: Address: [address] [place] [address] [address] [facility] [place] [address]- Name: Brennan Tyson MD Position: [facility] Primary Care Physician Member Role: PCP Address: Address: [address] [place] [address]- Name: Roxy Akers RN Position: S RN Member Role: Primary Care Nurse Name: Flores Freeman RN Position: S RN Member Role: Primary Care Nurse Name: Fabiana Hairston RN Position: S RN Member Role: Primary Care Nurse Care Team Related Persons Name: PRABHAKAR JACINTO Address: [address] [address] Name: KANG JACINTO Name: JOSE SHAW Address: [place] [address] Name: ANUM DUBOSE Address: home [address] [place] [id number]
--- OUTSIDE RECORDS SUMMARY | 2023-08-20 10:45 | XMS_ITS | Continuity of Care Document ---
Author Name Unknown Organization [facility] Adult Address [address] [place] [address]- Care Team Providers Care Dependency Case Manager Name Role Phone Brennan Tyson MD Primary Care Physician [phone] Encounter [facility] Date(s): 02/21/23 - 03/23/23 [facility] Adult [address] [place] [address]- Attending Physician: AdmJoy hernandez Admitting Physician: Admtr, [...] Comment: [08/12/2018] [facility] [id number] 2Result Comment: [08/12/2018] [facility] [id number] Medications Advair Diskus 500 mcg-50 mcg inhalation [...] tablet, 1 Refills, Maintenance, 02/22/23 10:19:00 EDT, [facility] STORE 69972, 165, cm, 02/21/23 9:40:00 EDT, Height, 85, kg, 01/15/23 14:55:00 EDT, Dry Weight Start Date: 02/22/23 Status: Ordered bumetanide 1 mg oral tablet 1 mg, 1, tablet, By Mouth, Daily, dose reduction, # 30 tablet, Refills 5, Tot. Refills 5, Maintenance, 03/13/23 11:25:00 EDT, Route to Pharmacy Electronically, [facility]/pharmacy #5252, Partial fill upon patient request if the prescription is for a schedule... Start Date: 03/13/23 Status: Ordered carvedilol 25 mg oral tablet 1, tablet, By Mouth, 2 times a day, # 180 tablet, Refills 3, Maintenance, 02/26/23 16:11:00 EDT, Route to Pharmacy Electronically, [facility] STORE 80553, 165, cm, 02/21/23 9:40:00 EDT, Height, 85, [...] Mouth, Daily, # 45 tablet, 4 Refills, [facility] STORE 89750, 167.6, cm, 04/01/22 8:47:00 EDT, Height Start Date: 06/07/22 Status: Ordered fluticasone 50 mcg/inh nasal spray 2 sprays, Nares, Both, Daily, Maintenance, 08/18/22 17:16:00 EDT, [place], Partial fill upon patient request if the prescription is for a schedule II opioid drug. Start Date: 08/18/22 Status: Ordered heparin 5000 u/ml injectable solution = 5,000 units, Subcutaneous Injection, 3 times a day, # 90 mL, 5 Refills, Maintenance, 10/17/22 11:51:00 EST, [facility], Partial fill upon patient [...] tablet, 1 Refills, Maintenance,02/21/23 10:02:00 EDT, [facility]/pharmacy #1157, Partial fill upon patient [...] kg... Start Date: 10/18/22 Status: Ordered Pen [place], 31 G x 5 mm BD Ultra [...] Refills, Maintenance, 02/27/23 10:11:00 EDT, [facility], 165, cm, 02/21/23 9:40:00 EDT, Height, 85, kg, 01/15/23 14:55:00 EDT, Dry Weight Start Date: 02/27/23 Status: Ordered tamsulosin 0.4 mg oral capsule See Instructions, TAKE 1 CAPSULE BY MOUTH DAILY 30 MINUTES AFTER THE SAME MEAL, # 90 capsule, Refills 1, Maintenance, 11/08/22 11:58:00 EST, Instructions Replace Required Details, Route to Pharmacy Electronically, [facility], 165, cm, 10/18/22 16... Start Date: 11/08/22 [...] Result Scanned Authored Date: * Event Display: Cardiovascular Result Scanned Authored Date: Cardiology Consult note * Event Display: Consult Note Cardiology Authored Date: * Event Display: Consult Note Cardiology Authored Date: Note * Event Display: Cardiology Office Note, Non-BH Authored Date: Radiology * Event Display: [place] Nuclear Medicine, Non-BH Authored Date: * Event Display: [place] Nuclear Medicine Authored Date: Patient Care team information Care Team Personnel Name: Nayeli Fernandez RN Position: [facility] RN Member Role: Primary Care Nurse Name: Erin Pendleton RN Position: [facility] RN Member Role: Primary Care Nurse Name: Luciano Hernandez MD Position: [facility] Renal MD Member Role: Lifetime Consulting Physician Address: Address: [address] [place] [address] [address] [facility] [place] [address]- Name: Brennan Tyson MD Position: [facility] Physician - Primary Care Member Role: PCP Address: Address: [address] [place] [address]- [place] Name: Roxy Akers RN Position: [facility] AMB Nurse Member Role: Primary Care Nurse Name: Flores Freeman RN Position: [facility] RN Member Role: Primary Care Nurse Care Team Related Persons Name: PRABHAKAR JACINTO Address: home [address] [place] [address] Name: KANG JACINTO Name: JOSE SHAW Address: [place] [address] Name: ANUM DUBOSE Address: home [address] [place] [id number]
--- OUTSIDE RECORDS SUMMARY | 2023-08-20 10:45 | XMS_ITS | Continuity of Care Document ---
Author Name Unknown Organization [facility] Adult Address Unknown Care Team Providers Care Internal Controls Manager Name Role Phone Brennan Tyson MD Primary Care Physician Encounter [facility] Date(s): 06/06/21 - 06/13/21 [facility] Encounter Diagnosis Muscle weakness(Discharge Diagnosis) - 06/06/21 Atrial fibrillation(Discharge Diagnosis) - 06/06/21 Attending Physician: Brennan Tyson MD Allergies, Adverse [...] 1Result Comment: [08/12/2018] [facility] [id number] 2Result Comment: [08/12/2018] [facility] [id number] Medications Advair Diskus 500 mcg-50 mcg inhalation powder 1 puffs, Inhalation, 2 times a day, # 180 each, 0 Refills, Maintenance, Powder Start Date: 10/23/12 Status: Ordered amLODIPine 10 mg oral tablet 10 mg, 1, tablet, By Mouth, Daily, for 90 days, # 90 tablet, Refills 0, Tot. Refills 0, Hard Stop 08/26/21 13:26:00 EST, 05/28/21 13:26:00 EDT, [facility], [facility] [...] 11 Refills, Maintenance, 02/28/21 15:05:00 EDT, Tablet, [facility]/pharmacy #1157, Partial fill upon patient request if the prescription is for a schedule II opioid drug., 167.6, cm, 02/07/21 9:57:00 EDT, [facility]... Start Date: 02/28/21 Status: Ordered carvedilol 25 mg oral tablet 25 mg, 1, tablet, By Mouth, 2 times a day, # 60 tablet, Refills 11, Tot. Refills 11, Maintenance, 02/28/21 16:34:00 EDT, Route to Pharmacy Electronically, [facility]/pharmacy #1157, 167.6, cm, 02/07/21 9:57:00 EDT, [...] tablet, 5 Refills, Maintenance, 12/25/20 9:10:00 EST, [facility] STORE 48427, 167.6, cm, 11/28/20 10:41:00 EST, Height, 90.7, [...] each, 2 Refills, Maintenance, 02/12/21 7:40:00 EDT, [facility]/pharmacy #1157, dose increase, 167.6, cm, 02/07/21 [...] 06/02/20 13:26:00 EDT, Route to Pharmacy Electronically, [facility]/pharmacy #1157, 167.6, cm, 03/27/20 8:14:00 EDT,Height, 90.7, kg, 09/08/19 8:17:00 EST, Dry Weight Start Date: 06/02/20 Status: Ordered LORazepam 0.5 mg oral tablet 1 tablet = 0.5 mg, By Mouth, Daily, PRN as needed for anxiety, for 30 days, # 30 tablet, 2 Refills,Acute 06/26/21 15:17:00 EDT, 03/28/21 15:17:00 EDT, Tablet, [facility]/pharmacy #1157, 167.6, cm, :57:00 EDT, Height, [...] capsule, 0 Refills, Maintenance, 04/27/21 8:50:00 EDT, [facility]/pharmacy #1157, 167.6, cm, 04/10/21 12:50:00 EDT, [...] tablet, 11 Refills, Maintenance, 08/31/20 11:42:00 EST, [facility]/pharmacy #1157, 167.6, cm, 03/27/20 [...] BEDTIME, # 180 tablet, 1 Refills, Maintenance, [facility], 167.6, cm, 04/10/21 12:50:00 EDT, Height, 90.7, [...] 3 Refills, Maintenance, 05/29/21 14:34:00 EDT, Tablet, [facility]/pharmacy #1157, dose increase, 167.6, cm, 05/07/21 16:16:00 EDT, Height, 90.7, kg, 198:17:00 EST, Dry Weight Start Date: 05/29/21 Stop Date: 05/24/22 Status: Ordered tamsulosin 0.4 mg oral capsule 0.4 mg, 1, capsule, By Mouth, Daily, 30 minutes after the same meal, # 90 capsule, Refills 3, Tot. Refills 3, Maintenance, 10/25/20 7:20:00 EST, Route to Pharmacy Electronically, [facility]/pharmacy #1157, 167.6, cm, 03/27/20 [...] Effective Dates Health Status Clinical Service Informant Muscle weakness Discharge Diagnosis 06/06/21 Atrial fibrillation Discharge Diagnosis 06/06/21 Vital Signs Most recent to oldest [Reference Range]: 1 Height 167.6 cm (06/06/21 9:25 AM) Weight 94.3 kg (06/06/21 9:25 AM) Oxygen Saturation [94-100 %] 98 % (06/06/21 9:25 AM) Pulse Rate [55-90 bpm] 70 bpm (06/06/21 9:25 AM) Body Mass Index [18.5-24.99] 33.57 *>HHI* (06/06/21 9:25 AM) Blood Pressure [90-138/55-84 mm Hg] 130/ 82mm Hg (06/06/21 9:25 AM) Blood pressure sites Arm, left (06/06/21 9:25 AM) Social History Social History Type Response Smoking Status Former smoker; Type: Cigarettes; Other: quit 2006; entered on: 09/19/17 Sex
--- OUTSIDE RECORDS SUMMARY | 2023-08-20 10:45 | XMS_ITS | Continuity of Care Document ---
Author Name Unknown Organization [facility] Adult Address Unknown Care Team Providers Care Lumber Loader Name Role Phone Brennan Tyson MD Primary Care Physician Encounter [facility] Date(s): 02/22/22 - 04/24/22 [facility] Attending Physician: Brennan Tyson MD Allergies, [...] tetanus/diphtheria/pertussis, acel(Tdap) 10/20/13 Given 1Result Comment: [08/12/2018] [facility] [id number] 2Result Comment: [08/12/2018] [facility] [id number] Medications Advair Diskus 500 mcg-50 mcg inhalation [...] Mouth, Daily, # 90 tablet, 1 Refills, [facility] STORE 69927, 167.6, cm, 11/21/21 9:53:00 EST, Height Start Date: 02/05/22 Status: Ordered carvedilol 25 mg oral tablet 1, tablet, By Mouth, 2 times a day, # 180 tablet, Refills 3, Route to Pharmacy Electronically, [facility] STORE 45662, 167.6, cm, 11/21/21 9:53:00 EST, Height Start [...] capsule, 11 Refills, Maintenance, 04/01/22 9:18:00 EDT, [facility]/pharmacy #1157, Partial fill upon patient request if the prescription isfor a schedule II opioid drug., 167.6, cm, 04/01/22... Start Date: 04/01/22 Status: Ordered Eliquis 5 mg oral tablet 1 tablet, By Mouth, 2 times a day, # 180 tablet, 5 Refills, [facility] ST[facility] 34228, 167.6, cm, 11/21/21 9:53:00 EST, Height Start Date: 02/05/22 Status: Ordered fenofibrate 160 mg oral tablet 0.5 tablet, By Mouth, Daily, # 45 tablet, 3 Refills, Maintenance, 05/28/21 7:19:00 EDT, [facility]/pharmacy #1157, 167.6, cm, 05/07/21 [...] to Pharmacy Electronically, [facility] STORE 83565, 167.6, cm, 11/21/21 9:53:00 EST, Height Start [...] Start Date: 11/04/18 Status: Ordered Potassium Chloride (Aqd-Vtmb-Nkw 10) 10 mEq oral tablet, extended release 1 tablet, By Mouth, Daily, # 90 tablet, 3 Refills, [facility], 167.6, cm, 06/06/21 9:25:00 EDT, Height, 90.7, [...] Replace Required Details, Route to Pharmacy Electronically, [facility] 80211, 167.6, cm, 02/22/22 7:57:00 EDT, Height Start [...]
--- OUTSIDE RECORDS SUMMARY | 2023-08-20 10:45 | XMS_ITS | Continuity of Care Document ---
Author Name Unknown Organization [facility] Adult Address [address] [place] [address]- Care Team Providers Care Automotive Technician Instructor Name Role Phone Brennan yTson MD Primary Care Physician [phone] Encounter [facility] Date(s): 07/02/23 - 08/01/23 [facility] Adult [address] [place] [address]- Allergies, Adverse Reactions, Alerts Substance Reaction Severity Status labetalol Active tetanus toxoid Active HORSE SERUM PROTEINS AB.IGE.RAST CLASS Active Immunizations Given and Recorded Vaccine Date Status Refusal Reason [id number] bivalent booster vax 07/21/23 Recorded influenza virus [...] 1Result Comment: [08/12/2018] [facility] [id number] 2Result Comment: [08/12/2018] [facility] [id number] Medications Advair Diskus 500 mcg-50 mcg inhalation [...] 03/27/23 10:47:00 EDT, Route to Pharmacy Electronically, [facility], Partial fill upon patient request if the prescription is for a schedule II opioi... Start Date: 03/27/23 Status: Ordered atorvastatin 40 mg oral tablet 1 tablet, By Mouth, Daily, # 90 tablet, 1 Refills, Maintenance, 07/10/23 18:32:00 EDT, [facility] STORE 27763, 167.6, cm, 07/02/23 13:44:00 EDT, Height, 85, kg, 01/15/23 14:55:00 EDT, Dry Weight Start Date: 07/10/23 Status: Ordered bumetanide 1 mg oral tablet 2 mg, 2, tablet, By Mouth, Daily, # 180 tablet, Refills 1, Maintenance, 07/02/23 15:49:00 EDT, Route to Pharmacy Electronically, [facility] STORE 19725, 167.6, cm, 07/02/23 13:44:00 EDT, Height, 85, kg, 01/15/23 14:55:00 EDT, Dry Weight Start Date: 07/02/23 Status: Ordered carvedilol 25 mg oral tablet 1, tablet, By Mouth, 2 times a day, # 180 tablet, Refills 3, Maintenance, 02/26/23 16:11:00 EDT, Route to Pharmacy Electronically, [facility] STORE 54967, 165, cm, 02/21/23 9:40:00 EDT, Height, 85, kg, 01/15/23 14:55:00 EDT, Dry Weight Start Date: 02/26/23 Status: Ordered duloxetine 30 mg oral enteric coated capsule See Instructions, 1 capsule daily for 2 weeks and then 1 capsule every other day for 2 weeks and then stop., # 21 capsule, 0 Refills, Maintenance, 07/09/23 15:44:00 EDT, [facility]/pharmacy #1157, Partial fill upon patient request if the prescription is for... Start Date: 07/09/23 Status: Ordered duloxetine 60 mg oral enteric coated capsule 1 capsule, By Mouth, Daily, # 90 capsule, 3 Refills, Maintenance, 07/02/23 15:49:00 EDT, [facility] STORE 82201, 167.6, cm, 07/02/23 13:44:00 EDT, Height, 85, kg, 01/15/23 14:55:00 EDT, Dry Weight Start Date: 07/02/23 Status: Ordered fenofibrate 160 mg oral tablet 0.5 tablet, By Mouth, Daily, # 45 tablet, 0 Refills, Maintenance, 06/10/23 0:49:00 EDT, [facility], 167.6, cm, 04/11/23 8:40:00 EDT, Height, 85, kg, 01/15/23 14:55:00 EDT, Dry Weight Start Date: 06/10/23 Status: Ordered fluticasone 50 mcg/inh nasal spray 2 sprays, Nares, Both, Daily, Maintenance, 08/18/22 17:16:00 EDT, [facility], Partial fill upon patient request if the [...] 30 tablet, 1 Refills, Maintenance,02/21/23 10:02:00 EDT, [facility]/pharmacy #1157, Partial fill upon patient request [...] Refills, Maintenance, 06/19/23 16:44:00 EDT, [facility], 167.6, cm, 04/11/23 8:40:00 EDT, Height, 85, [...] kg... Start Date: 10/18/22 Status: Ordered Pen [place], 31 G x 5 mm BD Ultra [...] Start Date: 03/27/23 Status: Ordered Potassium Chloride (Sgn-Owig-Hhp 10) 10 mEq oral tablet, extended release 1 tablet, By Mouth, Daily, # 90 tablet, 3 Refills, Maintenance, 07/02/23 15:49:00 EDT, [facility], 167.6, cm, 07/02/23 13:44:00 EDT, Height, 85, [...] Refills, Maintenance, 07/02/23 15:49:00 EDT, [facility], 167.6, cm, 07/02/23 13:44:00 EDT, Height, 85, [...] Team Personnel Name: Nayeli Fernandez RN Position: [facility] RN Member Role: Primary Care Nurse Name: Sonny Silverman RN Position: [facility] RN Member Role: Primary Care Nurse Name: Luciano Hernandez MD Position: [facility] Renal MD Member Role: Lifetime Consulting Physician Address: Address: [address] [place] [address] [address] [facility] [place] [place] [address]- Name: Brennan Tyson MD Position: [facility] Physician - Primary Care Member Role: PCP Address: Address: [address] [place] [address]- [place] Name: Teresa Boyd [place] Position: [facility] DAPHNE Furniture Crater Member Role: Panel Raiser Operator Name: Roxy Akers RN Position: [facility] [place]IS[place] Nurse Member Role: Primary Care Nurse Name: Flores Freeman RN Position: [facility] RN Member Role: Primary Care Nurse Care Team Related Persons Name: PRABHAKAR JACINTO Address: [address] [place] [address] Name: KANG JACINTO Name: JOSE SHAW Address: [place] [address] Name: ANUM DUBOSE Address: home [address] [place] [address]
--- OUTSIDE RECORDS SUMMARY | 2023-08-20 10:45 | XMS_ITS | Continuity of Care Document ---
Author Name Unknown Organization [facility] Adult Address [address] [place] [address]- Care Team Providers Care Country Manager Name Role Phone Brennan Tyson MD Primary Care Physician [facility] Date(s): 08/30/20 - 09/29/20 [facility] [address] [place] [address]- Allergies, Adverse Reactions, Alerts Substance Reaction Severity [...] acel(Tdap) 10/20/13 Given 1Result Comment: [08/12/2018] [facility] [id number] 2Result Comment: [08/12/2018] [facility] [id number] Medications Advair Diskus 500 mcg-50 mcg inhalation powder 1 puffs, Inhalation, 2 times a day, # 180 each, 0 Refills, Maintenance, Powder Start Date: 10/23/12 Status: Ordered amLODIPine 10 mg oral tablet 10 mg, 1, tablet, By Mouth, Daily, # 90 tablet, Refills 3, Tot. Refills 3, Maintenance, 06/02/20 13:26:00 EDT, Route to Pharmacy Electronically, [facility]/pharmacy #1157, 167.6, cm, 03/27/20 8:14:00 [...] 06/17/19 6:49:21 EDT, Route to Pharmacy Electronically, [id number], [facility]/pharmacy #1157 Start Date: 06/17/19 Status: [...] Refills, Maintenance, 12/01/19 13:16:00 EST, [facility], 167.6, cm, 11/24/19 9:18:00 EST, Height, 90.7, kg, 09/08/19 8:17:00 EST, Dry Weight Start Date: 12/01/19 Status: Ordered hydrochlorothiazide 12.5 mg oral tablet See Instructions, 2 tabs po qAm and 1 tab qPM, # 90 each, 5 Refills, Maintenance, 08/14/20 16:03:00EDT, [facility]/pharmacy #1157, dose increase, 167.6, cm, [...] 06/02/20 13:26:00 EDT, Route to Pharmacy Electronically, [facility]/pharmacy #1157, 167.6, cm, 03/27/20 8:14:00 EDT,Height, 90.7, kg, 09/08/19 8:17:00 EST, Dry Weight Start Date: 06/02/20 Status: Ordered LORazepam 0.5 mg oral tablet 1 tablet = 0.5 mg, By Mouth, Daily, PRN as needed for anxiety, for 30 days, # 30 tablet, 2 Refills,Acute 11/13/20 9:56:00 EST, 08/15/20 9:56:00 EDT, Tablet, [facility]/pharmacy #1157, 167.6, cm, 03/27/20 8:14:00 [...] 0 Refills, Soft Stop, 08/14/20 16:03:00 EDT, [facility]/pharmacy #1157, 167.6, cm, 03/27/20 8:14:00 [...] tablet, 11 Refills, Maintenance, 08/31/20 11:42:00 EST, [facility]/pharmacy #1157, 167.6, cm, 03/27/20 8:14:00 [...] 1 Refills, Maintenance, 06/25/20 12:28:00 EDT, Tablet, [facility]/pharmacy #1157, 167.6, cm, 03/27/20 8:14:00 [...] 04/08/19 14:06:58 EDT, Route to Pharmacy Electronically, [id number], [facility] Start Date: 04/08/19 Status: Ordered [...]
--- OUTSIDE RECORDS SUMMARY | 2023-08-20 10:45 | XMS_ITS | Continuity of Care Document ---
Author Name Unknown Organization [facility] Adult Address [address] [place] [address]- Care Team Providers Care Weather Stripper Name Role Phone Brennan Tyson MD Primary Care Physician [facility] Date(s): 03/28/21 - 04/27/21 [facility] [address] [place] [address]- Allergies, Adverse Reactions, Alerts Substance Reaction Severity [...] tetanus/diphtheria/pertussis, acel(Tdap) 10/20/13 Given 1Result Comment: [08/12/2018] [facility] [id number] 2Result Comment: [08/12/2018] [facility] [id number] Medications Advair Diskus 500 mcg-50 mcg inhalation powder 1 puffs, Inhalation, 2 times a day, # 180 each, 0 Refills, Maintenance, Powder Start Date: 10/23/12 Status: Ordered amLODIPine 10 mg oral tablet 10 mg, 1, tablet, By Mouth, Daily, # 90 tablet, Refills 3, Tot. Refills 3, Maintenance, 06/02/20 13:26:00 EDT, [facility] 167.6, cm, 03/27/20 8:14:00 EDT, Height, [...] 11 Refills, Maintenance, 02/28/21 15:05:00 EDT, Tablet, [facility] Partial fill upon patient request if the prescription is for a schedule II opioid drug., 167.6, cm, 02/07/21 9:57:00 EDT, [facility]... Start Date: 02/28/21 Status: Ordered carvedilol 25 mg oral tablet 25 mg, 1, tablet, By Mouth, 2 times a day, # 60 tablet, Refills 11, Tot. Refills 11, Maintenance, 02/28/21 16:34:00 EDT, [facility] 167.6, cm, 02/07/21 9:57:00 EDT, Height, [...] tablet, 5 Refills, Maintenance, 12/25/20 9:10:00 EST, [facility] STORE 30462, 167.6, cm, 11/28/20 10:41:00 EST, Height, 90.7, [...] 06/02/20 13:26:00 EDT, Route to Pharmacy Electronically, [facility]/pharmacy #1157, 167.6, cm, 03/27/20 8:14:00 EDT,Height, 90.7, kg, 09/08/19 8:17:00 EST, Dry Weight Start Date: 06/02/20 Status: Ordered LORazepam 0.5 mg oral tablet 1 tablet = 0.5 mg, By Mouth, Daily, PRN as needed for anxiety, for 30 days, # 30 tablet, 2 Refills,Acute 06/26/21 15:17:00 EDT, 03/28/21 15:17:00 EDT, Tablet, [facility]/pharmacy #1157, 167.6, cm, :57:00 EDT, Height, [...] capsule, 0 Refills, Maintenance, 04/27/21 8:50:00 EDT, [facility]/pharmacy #1157, 167.6, cm, 04/10/21 12:50:00 EDT, [...] 11 Refills, Maintenance, 01/08/21 14:15:00 EDT, Tablet, [facility]/pharmacy #1157, dose increase, 167.6, cm, 01/08/21 13:53:00 EDT, Height, 90.7, kg, 09/08/19 8:17:00 EST, Dry Weight Start Date: 01/08/21 Stop Date: 01/03/22 Status: Ordered tamsulosin 0.4 mg oral capsule 0.4 mg, 1, capsule, By Mouth, Daily, 30 minutes after the same meal, # 90 capsule, Refills 3, Tot. Refills 3, Maintenance, 10/25/20 7:20:00 EST, Route to Pharmacy Electronically, [facility]/pharmacy #1157, 167.6, cm, 03/27/20 [...]
--- OUTSIDE RECORDS SUMMARY | 2023-08-20 10:46 | XMS_ITS | Continuity of Care Document ---
Author Name Unknown Organization [facility] Adult Address [address] [place] [address]- Care Team Providers Care Promotions Associate Name Role Phone Brennan Tyson MD Primary Care Physician [facility] Date[facility]): 10/10/22 - 11/09/22 [facility] [address] [place] [address]- Allergies, Adverse Reactions, Alerts Substance Reaction Severity [...] 10/20/13 Given 1Result Comment: [08/12/2018] [facility] [id number] 2Result Comment: [08/12/2018] [facility] [id number] Medications Advair Diskus 500 mcg-50 mcg inhalation [...] tablet, 1 Refills, Maintenance, 07/08/22 0:13:00 EDT, [facility] STORE 94618, 167.6, cm, 06/18/22 14:40:00 EDT, Height Start Date: 07/08/22 Status: Ordered buPROPion 150 mg/24 hours (XL) oral tablet, extended release 1 tablet = 150 mg, By Mouth, Every 24 hours, # 14 tablet, 0 Refills, Maintenance, 10/18/22 17:03:00EST, [facility]/pharmacy #1157, Partial fill [...] Refills, Maintenance, 10/20/22 11:47:00 EST, ER Tablet, [facility]/pharmacy #1157, Partial fill upon patient request if the prescription is for a... Start Date: 10/20/22 Status: Ordered carvedilol 25 mg oral tablet 1, tablet, By Mouth, 2 times a day, # 180 tablet, Refills 3, Route to Pharmacy Electronically, [facility], 167.6, cm, 11/21/21 9:53:00 EST, Height Start [...] Mouth, Daily, # 45 tablet, 4 Refills, [facility] STORE 36971, 167.6, cm, 04/01/22 8:47:00 EDT, Height Start Date: 06/07/22 Status: Ordered fluticasone 50 mcg/inh nasal spray 2 sprays, Nares, Both, Daily, Maintenance, 08/18/22 17:16:00 EDT, [place], Partial fill upon patient request if the [...] mL, 5 Refills, Maintenance, 10/17/22 11:51:00 EST, [facility], Partial fill upon patient [...] Stop 04/04/23 15:00:00 EDT, 04/09/22 15:00:00 EDT, [facility]/pharmacy #1157, 167.6, cm, 04/01/22 8:47:00 EDT, [...] kg... Start Date: 10/18/22 Status: Ordered Pen [place], 31 G x 5 mm BD Ultra [...] tablet, 1 Refills, Maintenance, 10/28/22 8:47:00EST, Tablet, [facility]/pharmacy #1157, 165, cm, 10/18/22 16:17:00 EST, Height, 103, kg, 09/19/22 22:30:00EST, Dry Weight Start Date: 10/28/22 Stop Date: 04/26/23 Status: Ordered tamsulosin 0.4 mg oral capsule See Instructions, TAKE 1 CAPSULE BY MOUTH DAILY 30 MINUTES AFTER THE SAME MEAL, # 90 capsule, Refills 1, Maintenance, 11/08/22 11:58:00 EST, Instructions Replace Required Details, Route to Pharmacy Electronically, [facility], 165, cm, 10/18/22 16... Start Date: 11/08/22 [...] Name: Luciano Hernandez MD Position: [facility] Renal MD Member Role: Lifetime Consulting Physician Address: Address: [address] [place] [address] [address] [facility] [place] [address]- Name: Brennan Tyson MD Position: [facility] Primary Care Physician Member Role: PCP Address: Address: [address] [place] [address]- Name: Roxy Akers RN Position: S RN Member Role: Primary Care Nurse Name: Flroes Freeman RN Position: [facility] RN Member Role: Primary Care Nurse Name: Fabiana Hairston RN Position: [facility] RN Member Role: Primary Care Nurse Care Team Related Persons Name: PRABHAKAR JACINTO Address: home [address] [place] [address] Name: RUBY JACINTO Name: JOSE SHAW Address: [place] [address] Name: ANUM DUBOSE Address: home [address] [place] [address]
--- OUTSIDE RECORDS SUMMARY | 2023-08-20 10:46 | XMS_ITS | Continuity of Care Document ---
Author Name Unknown Organization [facility] Adult Address [address] [place] [address]- Care Team Providers Care Back Maker Name Role Phone Brennan Tyson MD Primary Care Physician [phone] Encounter [facility] Date(s): 11/24/19 - 12/01/19 [facility] [address] [place] [address]- [facility] Encounter Diagnosis Dizziness(Discharge Diagnosis) - 11/24/19 Essential hypertension(Discharge Diagnosis) - 11/24/19 Attending Physician: Brennan Tyson MD Allergies, Adverse [...] [08/12/2018] [facility] [id number] 2Result Comment: [08/12/2018] [facility] [id number] Medications Advair Diskus 500 mcg-50 mcg inhalation powder 1 puffs, Inhalation, 2 times a day, # 180 each, 0 Refills, Maintenance, Powder Start Date: 10/23/12 Status: Ordered amLODIPine 10 mg oral tablet 10 mg, 1, tablet, By Mouth, Daily, # 90 tablet, Refills 3, Tot. Refills 3, Maintenance, 12/30/18 13:42:36 EDT, Route to Pharmacy Electronically, [id number], [facility]/pharmacy #1157 Start Date: 12/30/18 Stop Date: [...] 06/17/19 6:49:21 EDT, Route to Pharmacy Electronically, [id number], [facility]/pharmacy #1157 Start Date: 06/17/19 Status: Ordered [...] Refills, Maintenance, 12/01/19 13:16:00 EST, [facility], 167.6, cm, 11/24/19 9:18:00 EST, Height, 90.7, [...] 10/07/18 8:59:29 EST, Route to Pharmacy Electronically, [id number], [facility] Start Date: 10/07/18 Status: Ordered LORazepam 0.5 mg oral tablet 1 tablet = 0.5 mg, By Mouth, Daily, PRN as needed for anxiety, for 30 days, # 30 tablet, 2 Refills,Acute 01/06/20 7:47:00 EDT, 10/08/19 7:47:00 EST, Tablet, [facility], 167.6, cm, 10/08/19 7:00:00 EST, Height, [...] 04/08/19 14:06:58 EDT, Route to Pharmacy Electronically, [id number], [facility] Start Date: 04/08/19 Status: Ordered [...] Effective Dates Health Status Clinical Service Informant Dizziness Discharge Diagnosis 11/24/19 Essential hypertension Discharge Diagnosis 11/24/19 Vital Signs Most recent to oldest [Reference Range]: 1 2 Height 167.6 cm (11/24/19 9:18 AM) 167.6 cm (11/24/19 8:45 AM) Weight 93.4 kg (11/24/19 8:45 AM) Oxygen Saturation [94-100 %] 96 % (11/24/19 8:45 AM) Pulse Rate [55-90 bpm] 51 bpm *L* (11/24/19 8:45 AM) Body Mass Index [18.5-24.99] 33.25 *>HHI* (11/24/19 8:45 AM) Blood Pressure [90-138/55-84 mm Hg] 142/ 85mm Hg *H* (11/24/19 9:18 AM) 152/90mm Hg *H* (11/24/19 8:45 AM) Blood pressure sites Arm, right (11/24/19 9:18 AM) Arm, left (11/24/19 8:45 AM) Social History Social History Type Response Smoking Status Former smoker; Type: Cigarettes; Other: quit 2006; entered on: 09/19/17 Sex
--- OUTSIDE RECORDS SUMMARY | 2023-08-20 10:46 | XMS_ITS | Continuity of Care Document ---
Author Name Unknown Organization [facility] Adult Address [address] [place] [address]- Care Team Providers Care Credit Collections Rep Name Role Phone Brennan Tyson MD Primary Care Physician [facility] Date[facility]s): 03/18/23 - 04/17/23 [facility] [address] [place] [address]- Allergies, Adverse Reactions, Alerts Substance Reaction Severity [...] [08/12/2018] [facility] [id number] 2Result Comment: [08/12/2018] [facility] [id number] Medications Advair Diskus 500 mcg-50 mcg inhalation [...] 03/27/23 10:47:00 EDT, Route to Pharmacy Electronically, [facility], Partial fill upon patient request if the prescription is for a schedule II opioi... Start Date: 03/27/23 Status: Ordered atorvastatin 40 mg oral tablet 1 tablet, By Mouth, Daily, # 90 tablet, 1 Refills, Maintenance, 02/22/23 10:19:00 EDT, [facility] STORE 23236, 165, cm, 02/21/23 9:40:00 EDT, Height, 85, kg, 01/15/23 14:55:00 EDT, Dry Weight Start Date: 02/22/23 Status: Ordered bumetanide 1 mg oral tablet 1 mg, 1, tablet, By Mouth, Daily, dose reduction, # 30 tablet, Refills 5, Tot. Refills 5, Maintenance, 03/13/23 11:25:00 EDT, Route to Pharmacy Electronically, [facility]/pharmacy #1157, Partial fill upon patient request if the prescription is for a schedule... Start Date: 03/13/23 Status: Ordered carvedilol 25 mg oral tablet 1, tablet, By Mouth, 2 times a day, # 180 tablet, Refills 3, Maintenance, 02/26/23 16:11:00 EDT, Route to [facility]acy Electronically, [facility], 165, cm, 02/21/23 9:40:00 EDT, Height, 85, [...] # 45 tablet, 4 Refills, [facility], 167.6, cm, 04/01/22 8:47:00 EDT, Height Start Date: 06/07/22 Status: Ordered fluticasone 50 mcg/inh nasal spray 2 sprays, Nares, Both, Daily, Maintenance, 08/18/22 17:16:00 EDT, [place], Partial fill upon patient request if the [...] 30 tablet, 1 Refills, Maintenance,02/21/23 10:02:00 EDT, [facility]/pharmacy #1157, Partial fill [...] kg... Start Date: 10/18/22 Status: Ordered Pen [place], 31 G x 5 mm BD Ultra [...] 03/27/23 10:46:00 EDT, Route to Pharmacy Electronically, [facility], Partial fill upon patient [...] tablet, 1 Refills, Maintenance, 02/27/23 10:11:00 EDT, [facility] 98039, 165, cm, 02/21/23 9:40:00 EDT, Height, 85, kg, 01/15/23 14:55:00 EDT, Dry Weight Start Date: 02/27/23 Status: Ordered tamsulosin 0.4 mg oral capsule See Instructions, TAKE 1 CAPSULE BY MOUTH DAILY 30 MINUTES AFTER THE SAME MEAL, # 90 capsule, Refills 1, Maintenance, 11/08/22 11:58:00 EST, Instructions Replace Required Details, Route to Pharmacy Electronically, [facility] STORE 45437, 165, cm, 10/18/22 16... Start Date: 11/08/22 [...] Team Personnel Name: Sonny Silverman RN Position: [facility] RN Member Role: Primary Care Nurse Name: Luciano Hernandez MD Position: [facility] Renal MD Member Role: Lifetime Consulting Physician Address: Address: [address] [place] [address] [address] [facility] [place] [place] [address]- Name: Brennan Tyson MD Position: [facility] Physician - Primary Care Member Role: PCP Address: Address: [address] [place] [address]- [place] Name: Roxy Akers RN Position: [facility] AMB Nurse Member Role: Primary Care Nurse Name: Flores Freeman RN Position: [facility] RN Member Role: Primary Care Nurse Care Team Related Persons Name: PRABHAKAR JACINTO Address: [address] [address] Name: KANG JACINTO Name: JOSE SHAW Address: [place] [address] Name: ANUM DUBOSE Address: home [address] [place], [place] [id number]
--- OUTSIDE RECORDS SUMMARY | 2023-08-20 10:46 | XMS_ITS | Continuity of Care Document ---
Author Name Unknown Organization [facility] Adult Address [address] [place] [address]- Care Team Providers Care Nature Photographer Name Role Phone Marbella RINCON, Brennan Primary Care Physician [phone] [facility] Date[facility]s): 04/02/21 - 05/02/21 [facility] [address] [place] [address]- Allergies, Adverse Reactions, Alerts Substance Reaction Severity [...] tetanus/diphtheria/pertussis, acel(Tdap) 10/20/13 Given 1Result Comment: [08/12/2018] [facility] [id number] 2Result Comment: [08/12/2018] [facility] [id number] Medications Advair Diskus 500 mcg-50 mcg inhalation powder 1 puffs, Inhalation, 2 times a day, # 180 each, 0 Refills, Maintenance, Powder Start Date: 10/23/12 Status: Ordered amLODIPine 10 mg oral tablet 10 mg, 1, tablet, By Mouth, Daily, # 90 tablet, Refills 3, Tot. Refills 3, Maintenance, 06/02/20 13:26:00 EDT, Route to Pharmacy Electronically, [facility]/pharmacy #1157, 167.6, cm, 03/27/20 8:14:00 [...] 11 Refills, Maintenance, 02/28/21 15:05:00 EDT, Tablet, [facility]/pharmacy #1157, Partial fill upon patient request if the prescription is for a schedule II opioid drug., 167.6, cm, 02/07/21 9:57:00 EDT, He[facility]... Start Date: 02/28/21 Status: Ordered carvedilol 25 mg oral tablet 25 mg, 1, tablet, By Mouth, 2 times a day, # 60 tablet, Refills 11, Tot. Refills 11, Maintenance, 02/28/21 16:34:00 EDT, Route to Pharmacy Electronically, [facility]/pharmacy #1157, 167.6, cm, 02/07/21 9:57:00 [...] tablet, 5 Refills, Maintenance, 12/25/20 9:10:00 EST, [facility] STORE 30894, 167.6, cm, 11/28/20 10:41:00 EST, Height, 90.7, [...] 06/02/20 13:26:00 EDT, Route to Pharmacy Electronically, [facility]/pharmacy #1157, 167.6, cm, 03/27/20 8:14:00 EDT,Height, 90.7, kg, 09/08/19 8:17:00 EST, Dry Weight Start Date: 06/02/20 Status: Ordered LORazepam 0.5 mg oral tablet 1 tablet = 0.5 mg, By Mouth, Daily, PRN as needed for anxiety, for 30 days, # 30 tablet, 2 Refills,Acute 06/26/21 15:17:00 EDT, 03/28/21 15:17:00 EDT, Tablet, [facility]/pharmacy #1157, 167.6, cm, :57:00 EDT, [...] 1 Refills, Maintenance, 12/22/20 12:40:00 EST, Tablet, [facility]/pharmacy #1157, 167.6, cm, 11/28/20 10:41:00 EST, Height, 90.7, kg, 09/08/19 8:17:00 EST, Dry Weight Start Date: 12/22/20 Stop Date: 06/20/21 Status: Ordered sertraline 100 mg oral tablet 2 tablet = 200 mg, By Mouth, Daily, DOSE INCREASE, # 60 tablet, 11 Refills, Maintenance, 01/08/21 14:15:00 EDT, Tablet, [facility]/pharmacy #1157, dose increase, 167.6, cm, 01/08/21 13:53:00 EDT, Height, 90.7, kg, 09/08/19 8:17:00 EST, Dry Weight Start Date: 01/08/21 Stop Date: 01/03/22 Status: Ordered tamsulosin 0.4 mg oral capsule 0.4 mg, 1, capsule, By Mouth, Daily, 30 minutes after the same meal, # 90 capsule, Refills 3, Tot. Refills 3, Maintenance, 10/25/20 7:20:00 EST, Route to Pharmacy Electronically, [facility]/pharmacy #1157, 167.6, cm, 03/27/20 8:14:00 [...]
--- OUTSIDE RECORDS SUMMARY | 2023-08-20 10:46 | XMS_ITS | Continuity of Care Document ---
Author Name Unknown Organization [facility] Adult Address [address] [place] [address]- Care Team Providers Care Rope Maker Name Role Phone Brennan Tyson MD Primary Care Physician [phone] Encounter [facility] Date(s): 06/18/22 - 06/25/22 [facility] [address] [place] [address]- Encounter Diagnosis Anxiety(Discharge Diagnosis) - 06/18/22 Trapezius strain(Discharge Diagnosis) - 06/18/22 Attending Physician: Brennan Tyson MD Allergies, Adverse [...] Comment: [08/12/2018] [facility] [id number] 2Result Comment: [08/12/2018] [facility] [id number] Medications Advair Diskus 500 mcg-50 mcg inhalation [...] Mouth, Daily, # 90 tablet, 1 Refills, [facility] STORE 62950, 167.6, cm, 11/21/21 9:53:00 EST, Height Start Date: 02/05/22 Status: Ordered carvedilol 25 mg oral tablet 1, tablet, By Mouth, 2 times a day, # 180 tablet, Refills 3, Route to Pharmacy Electronically, [facility] STORE 24938, 167.6, cm, 11/21/21 9:53:00 EST, Height Start [...] Compound Start Date: 04/05/19 Status: Ordered duloxetine 60 mg oral enteric coated capsule 1 capsule = 60 mg, By Mouth, Daily, dose increase, # 30 capsule, 11 Refills, Maintenance, 06/18/22 15:02:00 EDT, [facility]/pharmacy #1157, Partial fill upon patient request if the prescription is for a schedule II opioid drug., 167.6, cm, 06/18/22 14:40:00... Start Date: 06/18/22 Status: Ordered Eliquis 5 mg oral tablet 1 tablet, By Mouth, 2 times a day, # 180 tablet, 5 Refills, [facility] STORE 41721, 167.6, cm, 11/21/21 9:53:00 EST, Height Start Date: 02/05/22 Status: Ordered fenofibrate 160 mg oral tablet 0.5 tablet, By Mouth, Daily, # 45 tablet, 4 Refills, [facility] STORE 75611, 167.6, cm, 04/01/22 8:47:00 EDT, Height Start [...] tablet, Refills 1, Route to Pharmacy Electronically, [facility] STORE 87021, 167.6, cm, 11/21/21 9:53:00 EST, Height Start Date: 02/05/22 Status: Ordered LORazepam 0.5 mg oral tablet 1 tablet = 0.5 mg, By Mouth, Daily, PRN as needed for anxiety, for 30 days, # 30 tablet, 3 Refills,Acute 09/19/22 12:53:00 EST, 05/22/22 12:53:00 EDT, Tablet, [facility]/pharmacy #1157, 167.6, cm, 228:47:00 EDT, Height Start [...] Start Date: 11/04/18 Status: Ordered Potassium Chloride (Yao-Mako-Edf 10) 10 mEq oral tablet, extended release 1 tablet, By Mouth, Daily, # 90 tablet, 3 Refills, [facility], 167.6, cm, 06/06/21 9:25:00 EDT, Height, 90.7, [...] tablet, 3 Refills, Maintenance, 228:32:00 EDT, Tablet, [facility]/pharmacy #1157, dose increase, 167.6, cm, 02/22/22 7:57:00 EDT, Height Start Date: 02/22/22 Stop Date: 02/17/23 Status: Ordered tamsulosin 0.4 mg oral capsule See Instructions, TAKE 1 CAPSULE BY MOUTH DAILY 30 MINUTES AFTER THE SAME MEAL, # 90 capsule, Refills 1, Instructions Replace Required Details, Route to Pharmacy Electronically, [facility], 167.6, cm, 02/22/22 7:57:00 EDT, Height Start [...] Dates Health Status Cl inical Service Informant Anxiety Discharge Diagnosis 06/18/22 Trapezius strain Discharge Diagnosis 06/18/22 Vital Signs Most recent to oldest [Reference Range]: 1 Height 167.6 cm (06/18/22 2:40 PM) Weight 97.0 kg (06/18/22 2:40 PM) Oxygen Saturation [94-100 %] 94 % (06/18/22 2:40 PM) Pulse Rate [55-90 bpm] 57 bpm (06/18/22 2:40 PM) Body Mass Index [18.5-24.99] 34.53 *>HHI* (06/18/22 2:40 PM) Blood Pressure [90-138/55-84 mm Hg] 115/ 74mm Hg (06/18/22 2:40 PM) Mode of Delivery (Oxygen) Room air (06/18/22 2:40 PM) Blood pressure sites Arm, left (06/18/22 2:40 PM) Social History Social History Type Response Smoking Status Former smoker; Type: Cigarettes; Other: quit 2006; entered on: 09/19/17 Sex Care Team Personnel Name: Brennan Tyson MD Address: [address] [place] [address]
--- OUTSIDE RECORDS SUMMARY | 2023-08-20 10:46 | XMS_ITS | Continuity of Care Document ---
Author Name Unknown Organization [facility] Adult Address [address] [place] [address]- Care Team Providers Care Roller Varnisher Name Role Phone Brennan Tyson MD Primary Care Physician [facility] Date[facility]s): 03/06[facility]23 - 04/05/23 [facility] [address] [place] [address]- Allergies, Adverse Reactions, Alerts Substance Reaction Severity [...] [facility] [id number] 2Result Comment: [08/12/2018] formerly named [facility] [id number] Medications Advair Diskus 500 mcg-50 mcg inhalation [...] Route to Pharmacy Electronically, [facility], Partial fill upon patient request if the prescription is for a schedule II opioi... Start Date: 03/27/23 Status: Ordered atorvastatin 40 mg oral tablet 1 tablet, By Mouth, Daily, # 90 tablet, 1 Refills, Maintenance, 02/22/23 10:19:00 EDT, [facility] STORE 55843, 165, cm, 02/21/23 9:40:00 EDT, Height, 85, kg, 01/15/23 14:55:00 EDT, Dry Weight Start Date: 02/22/23 Status: Ordered bumetanide 1 mg oral tablet 1 mg, 1, tablet, By Mouth, Daily, dose reduction, # 30 tablet, Refills 5, Tot. Refills 5, Maintenance, 03/13/23 11:25:00 EDT, Route to Pharmacy Electronically, [facility]/pharmacy #1157, Partial fill upon patient request if the prescription is for a schedule... Start Date: 03/13/23 Status: Ordered carvedilol 25 mg oral tablet 1, tablet, By Mouth, 2 times a day, # 180 tablet, Refills 3, Maintenance, 02/26/23 16:11:00 EDT, Route to Pharmacy Electronically, [facility], 165, cm, 02/21/23 9:40:00 EDT, Height, 85, [...] # 45 tablet, 4 Refills, [facility], 167.6, cm, 04/01/22 8:47:00 EDT, Height Start Date: 06/07/22 Status: Ordered fluticasone 50 mcg/inh nasal spray 2 sprays, Nares, Both, Daily, Maintenance, 08/18/22 17:16:00 EDT, [place], Partial fill upon patient request if the [...] 30 tablet, 1 Refills, Maintenance,02/21/23 10:02:00 EDT, [facility]/pharmacy #1157, Partial fill upon patient request if [...] kg... Start Date: 10/18/22 Status: Ordered Pen [place], 31 G x 5 mm BD Ultra [...] tablet, 1 Refills, Maintenance, 02/27/23 10:11:00 EDT, [facility] STORE 94648, 165, cm, 02/21/23 9:40:00 EDT, Height, 85, kg, 01/15/23 14:55:00 EDT, Dry Weight Start Date: 02/27/23 Status: Ordered tamsulosin 0.4 mg oral capsule See Instructions, TAKE 1 CAPSULE BY MOUTH DAILY 30 MINUTES AFTER THE SAME MEAL, # 90 capsule, Refills 1, Maintenance, 11/08/22 11:58:00 EST, Instructions Replace Required Details, Route to Pharmacy Electronically, [facility] STORE 95878, 165, cm, 10/18/22 16... Start Date: 11/08/22 [...] Team Personnel Name: Nayeli Fernandez RN Position: [facility] RN Member Role: Primary Care Nurse Name: Erin Pendleton RN Position: [facility] RN Member Role: Primary Care Nurse Name: Sonny Silverman RN Position: [facility] RN Member Role: Primary Care Nurse Name: Luciano Hernandez MD Position: [facility] Renal MD Member Role: Lifetime Consulting Physician Address: Address: [address] [place] [address] [address] [facility] [place] [address]- Name: Brennan Tyson MD Position: [facility] Physician - Primary Care Member Role: PCP Address: Address: [address] [place] [address]- [place] Name: Roxy Akers RN Position: [facility] AMB Nurse Member Role: Primary Care Nurse Name: Flores Freeman RN Position: [facility] RN Member Role: Primary Care Nurse Care Team Related Persons Name: PRABHAKAR JACINTO Address: [address] [address] Name: KANG JACINTO Name: JOSE SHAW Address: [place] [address] Name: ANUM DUBOSE Address: home [address] [place] [address]
--- OUTSIDE RECORDS SUMMARY | 2023-08-20 10:46 | XMS_ITS | Continuity of Care Document ---
Author Name Unknown Organization [facility] ter Address [address] [place] [id number] Care Team Providers Care Cartography Supervisor Name Role Phone Brennan Tyson MD Primary Care Physician Encounter [facility] Date(s): 09/19/22 - 09/28/[address] [id number] Encounter Diagnosis Perinephric hematoma(Final) - 09/19/22 Nontraumatic retroperitoneal hematoma(Final) - 09/19/22 Anemia(Final) - 09/19/22 COPD without exacerbation(Final) - 09/19/22 Afib(Final) - 09/19/22 Anticoagulated(Final) - 09/19/22 Discharge Disposition: A-Transfer SNF Attending Physician: Mary Parisi MD Admitting Physician: Ana Bella MD Referring Physician: Not on Staff, Referring [...] [08/12/2018] [facility] [id number] 2Result Comment: [08/12/2018] [facility] [id number] Medications Advair Diskus 500 mcg-50 mcg inhalation [...] Refills, Maintenance, 07/08/22 0:13:00 EDT, [id number], 167.6, cm, 06/18/22 14:40:00 EDT, Height Start Date: 07/08/22 Status: Ordered carvedilol 25 mg oral tablet 1, tablet, By Mouth, 2 times a day, # 180 tablet, Refills 3, Route to Pharmacy Electronically, [id number], 167.6, cm, 11/21/21 9:53:00 EST, Height Start [...] opioid drug. Start Date: 09/28/22 Status: Ordered Coreg 6.25 mg oral tablet 6.25 mg, Tablet, By Mouth, Hold for: SBP<120 and OR HR <65, 09/28/22 9:00:00 EST Start Date: 09/28/22 Stop Date: 09/28/22 Status: Completed CPAP Machine See Instructions, # 1 each, [...] Mouth, Daily, # 45 tablet, 4 Refills, [facility], 167.6, cm, 04/01/22 8:47:00 EDT, Height Start Date: 06/07/22 Status: Ordered fluticasone 50 mcg/inh nasal spray 2 sprays, Nares, Both, Daily, Maintenance, 08/18/22 17:16:00 EDT, [place], Partial fill upon patient request if the [...] 04/04/23 15:00:00 EDT, 04/09/22 15:00:00 EDT, [facility]/pharmacy #[id number], 167.6, cm, 04/01/22 8:47:00 EDT, [...] Refills, Maintenance, 12/22/20 12:40:00 EST, Tablet, [facility]/pharmacy #[id number], 167.6, cm, 11/28/20 10:41:00 EST, Height, 90.7, kg, 09/08/19 8:17:00 EST, Dry Weight Start Date: 12/22/20 Stop Date: 06/20/21 Status: Ordered tamsulosin 0.4 mg oral capsule See Instructions, TAKE 1 CAPSULE BY MOUTH DAILY 30 MINUTES AFTER THE SAME MEAL, # 90 capsule, Refills 1, Instructions Replace Required Details, Route to Pharmacy Electronically, [id number], 167.6, cm, 02/22/22 7:57:00 EDT, Height Start [...] 1Per chart review meeting GFR criteria Results Orders for Microbiology Reports Name Date Blood Culture 09/21/22 Blood Culture #2 09/21/22 Microbiology Reports TEST:Blood Culture STATUS:Auth (Verified) BODY SITE: SOURCE:Blood COLLECTED DATE/TIME:09/21/22 9:26 PM Blood Culture SPECIMEN DESCRIPTION : BLOOD LEFT HAND SPECIAL REQUESTS : NONE CULTURE : NO GROWTH 5 DAYS. REPORT STATUS : FINAL 09/26/2022 TEST:Blood Culture, Second Order STATUS:Auth (Verified) BODY SITE: SOURCE:Blood COLLECTED DATE/TIME:09/21/22 9:26 PM Blood Culture, Second Order SPECIMEN DESCRIPTION : BLOOD right arm SPECIAL REQUESTS : NONE CULTURE : NO GROWTH 5 DAYS. REPORT STATUS : FINAL 09/26/2022 Radiology Reports (Most Recent Ten) * Exam Date Time Procedure Performing Provider Status 09/25/22 3:39 PM IR End of Case Report Aut h (Verified) IR End of Case Report * Exam Date Time Procedure Performing Provider Status 09/25/22 4:33 PM IR Permacath Insertion Au th (Verified) Notes: (IR Permacath Insertion) Reason For Exam: Hemodialysis - renal failure;Other: IR Permacath Insertion Patient: ROLDAN JACINTO Study Date: 09/25/2022 Performing: Geovanny Santana MD Referring: : 1950 Age: 72 Gender: MALE Pre-procedure diagnosis and Indication: CKD NEEDS DIALYSIS AT [facility] COPD CKD DM HTN CAD Exam: Prior to the procedure, the patient was seen and the nature of the procedure explained along with its attendant risks and benefits to the patient . Informed consent was obtained from, the patient . The patient underwent a pre-anesthesia assessment. On completion of this it was determined the patient is suitable for moderate sedation. The patient arrived in IR room 1 for a tunneled hemodialysis catheter insertion PROCEDURE: The patient was positioned supine and secured with arm boards. The access site was evaluated with ultrasound and images archived. The site was prepped with chloraprep and draped in the usual sterile fashion. . Local anesthetic was given and The vessel was identified using, ultrasound access was gained into the right internal jugular vein using a regular micropuncture set and catheter was tunneled, and inserted. The catheter was tested with good flow and return. No leaks were noted. The Catheter was flushed with heparin 1000u/ml 2 ml's The catheter was Secured with 0 prolene suture and and access was closed using . The sterile field was maintained throughout the procedure and patient tolerated the procedure well with no complications of the procedure A 23 cm cuff to tip dialysis cath was inserted. The cath was fixed to the skin with 0- Prolene suture. The neck incision was closed with a 4-0 Vicryl suture. No attending physician assisted with this procedure. estimated blood loss was minimal Specimens/samples: no specimens or samples were sent for this procedure Patient transferred to[facility] procedure instructions sent in envelope with the patient Impression: Satisfactory ultrasound and fluoroscopically guided placement of a tunneled hemodialysis chateter patient tolerated the procedure well with no complications of the procedure Should catheter malfunction develop please contact this service directly rather than having a diagnostic study performed elsewhere. This is not necessary. Right-sided PermCath insertion without complication. Catheter tip is in the mid right atrium. Good flow was obtained. Fluoroscopy time and dose Total Fluoro Time: 2.8 mins Total dose 49 mGy Total DAP 290.7 - ?Gy/m2 No contrast was used for this procedure Signed By Geovanny Santana MD On 09/25/2022 16:33:38 Geovanny Santana MD Dictated By: Geovanny Santana MD Dictated Date/Time: 09/25/22 3:39 pm Reviewed By: Geovanny Santana MD Signed By: Geovanny Santana MD Signed Date/Time: 09/25/22 4:33 pm Transcribed By: MCKAY Transcribed Date/Time: 09/25/22 4:33 pm * Exam Date Time Procedure Performing Provider Status 09/23/22 12:30 PM Chest Portable Yuliya Myers; Au th (Verified) Notes: (Chest Portable) Reason For Exam: wheezing b/l, no H/o smoking per patient;Other: RESULT: Chest Portable Chest Portable CLINICAL INDICATION: Wheezing. COMPARISON: Chest x-ray, 09/21/2022 per FINDINGS: The cardiac silhouette is within normal limits. Mediastinal and hilar contours are normal. There are low lung volumes with mild bibasilar atelectasis, right greater than left. There is no significant pleural fluid. No pneumothorax or CHF noted No acute osseous abnormality is noted. IMPRESSION: Low lung volumes with mild bibasilar atelectasis, right greater than left. WSN: [id number] Ordering Physician: Masoud Carlin Dictated By: Florence Green MD Dictated Date/Time: 09/23/22 12:56 p Reviewed By: Florence Green MD Signed By: Florence Green MD Signed Date/Time: 09/23/22 12:56 pm Transcribed By: RAMÓN Transcribed Date/Time: 09/23/22 12:55 pm * Exam Date Time Procedure Performing Provider Status 09/21/22 9:17 PM Chest Portable Apollo Tracy; Auth (Ve rified) Notes: (Chest Portable) Reason For Exam: Fever RESULT: Chest Portable Chest Portable Reason: Fever; Clinical Question(s): Pneumonia COMPARISON: 09/20/2022. FINDINGS: LINES AND TUBES: None. LUNGS AND PLEURA: Low lung volumes with mild basilar atelectasis. Lungs are otherwise clear with no consolidation. No pleural effusion. No pneumothorax. HEART, MEDIASTINUM AND LEI: Heart is normal in size. Aorta is mildly calcified. BONES AND SOFT TISSUES: No acute abnormality. IMPRESSION: No acute abnormality. WSN: [id number] Ordering Physician: Rocío Moran Dictated By: Osmani Villlaobos MD Dictated Date/Time: 09/21/22 9:32 pm Reviewed By: Osmani Villalobos MD Signed By: Osmani Villalobos MD Signed Date/Time: 09/21/22 9:32 pm Transcribed By: RAMÓN Transcribed Date/Time: 09/21/22 9:28 pm * Exam Date Time Procedure Performing Provider Status 09/20/22 11:[address] Angio Abdomen and Pelvis Nicholas Diallo; Modified Notes: (CT Angio Abdomen and Pelvis) Reason For Exam: right sided retroperitoneal hematoma;Other: RESULT: CT Angio Abdomen and Pelvis CT Angio Abdomen and Pelvis INDICATION: Reason: Right sided retroperitoneal hematoma; Clinical Question(s): Hemorrhage COMPARISON: CT abdomen/pelvis 09/19/2022 TECHNIQUE: Unenhanced axial images were obtained from diaphragm through the pelvis before, during (arterial) and after (portal venous) the intravenous administration of iodinated contrast. 100 cc of Omnipaque 300 was administered intravenously. Sagittal and coronal maximum intensity projection (MIP) images were reconstructed and rendered in both arterial and venous phases. Weight-based protocol using automatic tube modulation was used to optimize exposure parameters. RADIATION DOSE PARAMETERS: CTDIvol Body: 17.10 mGy, DLP Body: 2897 mGy*cm. VASCULAR FINDINGS: No evidence of active GI bleeding. Abdominal aorta: Severe atherosclerotic vascular calcification of the abdominal aorta and its branching arteries. Redemonstration of a borderline infrarenal abdominal aortic aneurysm measuring up to 2.8 cm. Celiac axis: Patent. Superior mesenteric artery: Patent. Right renal artery: Patent. Left renal artery: Patent. Inferior mesenteric artery: Patent. Right common iliac artery: Patent. Right internal iliac artery: Patent. Right external iliac artery: Patent. Right common femoral artery: Patent. Visualized right superficial and deep femoral arteries: Patent. Left common iliac artery: Patent. Left internal iliac artery: Patent. Left external iliac artery: Patent. Left common femoral artery: Patent. Visualized left superficial and deep femoral arteries: Patent. IVC and hepatic veins: Marked flattening of the proximal to mid IVC likely from marked hypovolemia.IVC veins appear patent. Portal vein: Patent. Splenic vein: Patent. Inferior mesenteric vein: Patent. Iliac and femoral veins: Patent. NONVASCULAR FINDINGS: Visualized Chest: Unchanged 4 mm right middle lobe pulmonary nodule seen on 09/19/2022. Symmetrically increased moderate right pleural effusion and small left pleural effusion with bibasilar atelectasis. The heart is normal in size. No pericardial effusion. Diaphragm: Normal. Liver: Normal. Gallbladder: Filled with contrast limiting visualization of known gallstones. No evidence of acute cholecystitis. Bile ducts: No biliary ductal dilation. Spleen: A 1.8 cm cystic lesion, unchanged. Pancreas: Mild fatty atrophy. Adrenal glands: Normal. Kidneys and ureters: Similar size of a large right subscapular hematoma measuring up to 4.7 cm (series 401 image 55). No evidence of active contrast extravasation. Unchanged bilateral atrophic appearance of the kidneys with bilateral nonobstructing renal calculi measuring up to 7 mm. Unchanged scattered cystic foci in the bilateral kidneys. Bladder: Urinary bladder is mildly distended with evidence of probable bladder wall trabeculation and/or small bladder wall diverticulum on delayed imaging. Reproductive organs: Unremarkable. Stomach, small bowel, and large bowel: Normal. Peritoneum and retroperitoneum: Slightly decreased size of a large right retroperitoneal hematoma measuring approximately 12.0 x 10.2 x 16.7 cm, previously 13.1 x 13.7 x 17.2 cm. No evidence of active contrast extravasation. New small volume of mixed density fluid is seen surrounding the liver, spleen, and extending along the dependent left paracolic gutter to layer along the left lower abdominal/pelvic lugo. Lymph nodes: No enlarged lymph nodes. Abdominal and pelvic wall: Mild diffuse anasarca is seen scattered throughout the abdominal wall and ventral pelvic wall subcutaneous soft tissues. Bones: No acute abnormality. IMPRESSION: No evidence of active contrast extravasation. New small volume of mixed density fluid likely representing layering blood products are seen in theperihepatic, perisplenic, and left paracolic gutter regions. Unchanged large right subscapular hematoma measuring up to 4.7 cm. Slightly decreased large right retroperitoneal hematoma measuring 12.0 x 10.2 x 16.7 cm. Significantly flattened proximal to mid IVC likely due to hypovolemia. New mild diffuse anasarca of the abdominal and ventral pelvic lugo and increasing small to moderate, right greater than left pleural effusions. Findings are likely due to fluid resuscitation and third spacing. Dr. Reyna Prasad discussed the above findings with covering provider Dr. Ne Figueroa via [employer] 09/21/2022 at 12:09 AM. I have personally reviewed the images and I agree with this report. WSN: [id number] Ordering Physician: Eliot Schuster Dictated By: Reyna Prasad DO Dictated Date/Time: 09/21/22 0:29 am Reviewed By: Rodrigo Feliz MD Signed By: Rodrigo Feliz MD Signed Date/Time: 09/21/22 0:34 am Transcribed By: RAMÓN Transcribed Date/Time: 09/21/22 0:27 am * Exam Date Time Procedure Performing Provider Status 09/20/22 9:13 PM Chest Portable Rossana , Apollo; Auth (Ve rified) Notes: (Chest Portable) Reason For Exam: Shortness of Breath RESULT: Chest Portable Chest Portable Reason: Shortness of Breath; Clinical Question(s): CHF COMPARISON: 08/18/2022 FINDINGS: LINES AND TUBES: None. LUNGS AND PLEURA: Low lung volumes with mild basilar atelectasis. Lungs are otherwise clear with no consolidation. No pleural effusion. No pneumothorax. HEART, MEDIASTINUM AND LEI: Heart is normal in size. Normal mediastinal and hilar contour. BONES AND SOFT TISSUES: No acute abnormality. IMPRESSION: No acute abnormality. WSN: [id number] Ordering Physician: Eliot Schuster Dictated By: Rodrigo Feliz MD Dictated Date/Time: 09/20/22 10:07 p Reviewed By: Rodrigo Feliz MD Signed By: Rodrigo Feliz MD Signed Date/Time: 09/20/22 10:07 pm Transcribed By: RAMÓN Transcribed Date/Time: 09/20/22 10:06 pm * Exam Date Time Procedure Performing Provider Status 09/20/22 1:[address] Angio Neck Hyperacute Stroke Carmen Gamble; Auth (Verified) Notes: (CT Angio Neck Hyperacute Stroke) Reason For Exam: Stroke;Other: RESULT: CT Angio Neck Hyperacute Stroke CT Angio Head Hyperacute Stroke, CT Angio Neck Hyperacute Stroke Reason: Other:; Stroke; Clinical Question(s): Other:; Hematoma Aneurysm / Other: TECHNIQUE: CT angiogram of the head and neck was performed after bolus administration of intravenous contrast. 100 mL of Omnipaque 300 was administered intravenously. Coronal and sagittal MIP reformatted images were obtained. Additional 3-D images were created on a separate workstation under concurrent supervision by the attending radiologist. All stenoses are measured using NASCET criteria. Weight-based protocol using automatic tube modulation was used to optimize exposure parameters. RADIATION DOSE PARAMETERS: CTDIvol Body: 16.43 mGy, DLP Body: 674 mGy*cm. CTDIvol Head: 47.10 mGy, DLP Head: 772 mGy*cm. COMPARISON: Noncontrast CT head performed concurrently. FINDINGS: CTA OF THE NECK: Arch: There is a three vessel aortic arch. There is mild atherosclerotic plaque of the aortic arch,but origins of the supra aortic vessels are patent. Right carotid system: The common carotid and cervical internal carotid arteries are patent. There is calcified atherosclerotic plaque at the carotid bifurcation, but no ICA stenosis (0%) by NASCET criteria. The mid ICA is tortuous. Left carotid system: The common carotid and cervical internal carotid arteries are patent. There iscalcified atherosclerotic plaque at the carotid bifurcation, but no ICA stenosis (0%) by NASCET criteria. The mid ICA is tortuous. There is a mildly right-dominant vertebral artery system. Right vertebral: Patent. Left vertebral: Patent. Other: Soft tissues and bones: No evidence of lymphadenopathy or mass. The thyroid is unremarkable. There is a small right pleural effusion. Visualized lung apices are otherwise clear. Multilevel degenerative changes of the spine are noted, without acute osseous abnormality. CTA OF THE HEAD: Anterior circulation: Calcified plaque is seen along the intracranial ICAs resulting in mild narrowing of the left supraclinoid segment. The anterior cerebral arteries are patent with hypoplastic right A1 segment and patent anterior communicating artery noted. Bilateral M1 and proximal M2 branches are patent and normal in caliber. Posterior circulation: The vertebral arteries are patent and normal in caliber. The basilar artery is patent though there is mild multifocal narrowing. The superior cerebellar arteries are patent. The posterior cerebral arteries are patent with origin of the right BACKUP SAWYER. Veins: Major dural venous sinuses are patent. Other: Soft tissues and bones: No midline shift or effacement of the basal cisterns. No space-occupying hemorrhage. There is a chronic area of encephalomalacia in the left occipital lobe. No territorial loss of godoy-white matter differentiation to suggest acute confluent lobar infarction. Orbits are unremarkable. No significant opacification in the paranasal sinuses or mastoid air cells. IMPRESSION: 1. No proximal occlusion or high grade stenosis in the major arteries of the head and neck. 2. Small right pleural effusion. A similar preliminary report was provided by [facility]. WSN: [id number] Ordering Physician: Yury Weeks Dictated By: Florence Green MD Dictated Date/Time: 09/20/22 7:54 am Reviewed By: Florence Green MD Signed By: Florence Green MD Signed Date/Time: 09/20/22 7:54 am Transcribed By: RAMÓN Transcribed Date/Time: 09/20/22 7:44 am * Exam Date Time Procedure Performing Provider Status 09/20/22 1:[address] Angio Head Hyperacute Stroke Carmen Gamble; Auth (Verified) Notes: (CT Angio Head Hyperacute Stroke) Reason For Exam: Stroke;Other: RESULT: CT Angio Head Hyperacute Stroke CT Angio Head Hyperacute Stroke, CT Angio Neck Hyperacute Stroke Reason: Other:; Stroke; Clinical Question(s): Other:; Hematoma Aneurysm / Other: TECHNIQUE: CT angiogram of the head and neck was performed after bolus administration of intravenous contrast. 100 mL of Omnipaque 300 was administered intravenously. Coronal and sagittal MIP reformatted images were obtained. Additional 3-D images were created on a separate workstation under concurrent supervision by the attending radiologist. All stenoses are measured using NASCET criteria. Weight-based protocol using automatic tube modulation was used to optimize exposure parameters. RADIATION DOSE PARAMETERS: CTDIvol Body: 16.43 mGy, DLP Body: 674 mGy*cm. CTDIvol Head: 47.10 mGy, DLP Head: 772 mGy*cm. COMPARISON: Noncontrast CT head performed concurrently. FINDINGS: CTA OF THE NECK: Arch: There is a three vessel aortic arch. There is mild atherosclerotic plaque of the aortic arch,but origins of the supra aortic vessels are patent. Right carotid system: The common carotid and cervical internal carotid arteries are patent. There is calcified atherosclerotic plaque at the carotid bifurcation, but no ICA stenosis (0%) by NASCET criteria. The mid ICA is tortuous. Left carotid system: The common carotid and cervical internal carotid arteries are patent. There iscalcified atherosclerotic plaque at the carotid bifurcation, but no ICA stenosis (0%) by NASCET criteria. The mid ICA is tortuous. There is a mildly right-dominant vertebral artery system. Right vertebral: Patent. Left vertebral: Patent. Other: Soft tissues and bones: No evidence of lymphadenopathy or mass. The thyroid is unremarkable. There is a small right pleural effusion. Visualized lung apices are otherwise clear. Multilevel degenerative changes of the spine are noted, without acute osseous abnormality. CTA OF THE HEAD: Anterior circulation: Calcified plaque is seen along the intracranial ICAs resulting in mild narrowing of the left supraclinoid segment. The anterior cerebral arteries are patent with hypoplastic right A1 segment and patent anterior communicating artery noted. Bilateral M1 and proximal M2 branches are patent and normal in caliber. Posterior circulation: The vertebral arteries are patent and normal in caliber. The basilar artery is patent though there is mild multifocal narrowing. The superior cerebellar arteries are patent. The posterior cerebral arteries are patent with origin of the right BACKUP SAWYER. Veins: Major dural venous sinuses are patent. Other: Soft tissues and bones: No midline shift or effacement of the basal cisterns. No space-occupying hemorrhage. There is a chronic area of encephalomalacia in the left occipital lobe. No territorial loss of godoy-white matter differentiation to suggest acute confluent lobar infarction. Orbits are unremarkable. No significant opacification in the paranasal sinuses or mastoid air cells. IMPRESSION: 1. No proximal occlusion or high grade stenosis in the major arteries of the head and neck. 2. Small right pleural effusion. A similar preliminary report was provided by [facility]. WSN: [id number] Ordering Physician: Yury Weeks Dictated By: Florence Green MD Dictated Date/Time: 09/20/22 7:54 am Reviewed By: Florence Green MD Signed By: Florence Green MD Signed Date/Time: 09/20/22 7:54 am Transcribed By: RAMÓN Transcribed Date/Time: 09/20/22 7:44 am * Exam Date Time Procedure Performing Provider Status 09/20/22 1:[address] Head-Hyper Acute Stroke Shravan Alas Z; Auth (Verified) Notes: (CT Head-Hyper Acute Stroke) Reason For Exam: Stroke;Other: RESULT: CT Head-Hyper Acute Stroke CT Head-Hyper Acute Stroke REASON: Neurological deficit. Clinical Question(s): Hematoma or infarct.. TECHNIQUE: Noncontrast head CT using axial technique and reconstructed in axial and coronal planes.Weight-based protocol using automatic tube modulation was used to optimize exposure parameters. CTDIvol Body: 16.43 mGy, DLP Body: 674 mGy*cm. CTDIvol Head: 47.10 mGy, DLP Head: 772 mGy*cm. COMPARISON: Multiple prior comparison studies, most recent MRI brain 02/19/2022 FINDINGS: BRAIN and EXTRA-AXIAL SPACES: No parenchymal hemorrhage, midline shift or mass effect. Stable well demarcated region of encephalomalacia in the left occipital lobe. Stable old lacunar infarct in the left basal ganglia. No acute infarct. Negative insular ribbon sign. Intravascular contrast from earlier angiography. Moderate prominence of the ventricles and sulci consistent with parenchymal volume loss. Mild low-density white matter changes. No subarachnoid hemorrhage, subdural or epidural collections. CALVARIUM, SKULL BASE AND SOFT TISSUES: No fractures or suspicious bony lesions. The paranasal sinuses and mastoid air cells are clear. Visualized orbits and globes are intact. The extracranial soft tissues are unremarkable. IMPRESSION: No evidence of acute intracranial abnormality. I have personally reviewed the images and I agree with this report. WSN: [id number] Ordering Physician: Yury Weeks Dictated By: Reyna Prasad DO Dictated Date/Time: 09/20/22 7:25 am Reviewed By: Tato Luo MD Signed By: Tato Luo MD Signed Date/Time: 09/20/22 7:30 am Transcribed By: RAMÓN Transcribed Date/Time: 09/20/22 1:45 am * Exam Date Time Procedure Performing Provider Status 09/19/22 10:[address] Abd/Pelvis W/ IV Contrast Only Debra Lawson; Auth (Verified) Notes: (CT Abd/Pelvis W/ IV Contrast Only) Reason For Exam: LLQ abdominal pain;Other: RESULT: CT Abd/Pelvis W/ IV Contrast Only CT Abd/Pelvis W/ IV Contrast Only Hx of Present Illness: R flank pain with nausea this am; Reason: Other:; LLQ abdominal pain; Clinical Question(s): Other:; Special Instructions: add delayed phase; Order Comment: TECHNIQUE: Spiral CT through the abdomen and pelvis with IV contrast formatted in 3 planes. 100 cc of Omnipaque 300 was administered intravenously. Additional images during the pyelographic phase were also obtained. This study was performed without oral contrast. Weight-based protocol using automatic tube modulation was used to optimize exposure parameters. CTDIvol Body: 21.85 mGy, DLP Body: 2442 mGy*cm. COMPARISON: Noncontrast CT performed earlier today at 9:21 AM. FINDINGS: Upscale Security Officer View Findings, Lines and Tubes: None. Visualized Chest: 4 mm nodule in the middle lobe (axial 7). Small layering right pleural effusion. Mild bibasilar atelectasis. The heart is normal in size. No pericardial effusion. Diaphragm: Normal. Liver: Normal. Gallbladder: Numerous tiny layering gallstones. No inflammatory changes. Bile ducts: No biliary ductal dilation. Spleen: Nonenlarged. 1.8 cm cystic focus superiorly (axial 18). Pancreas: Fatty atrophy. No focal lesion. No pancreatic ductal dilation. Adrenal glands: The right adrenal gland is not well visualized. The left adrenal gland is normal. Kidneys and ureters: * Atrophic left kidney with multiple small cystic foci preserved enhancement. Nonobstructing calculi measuring up to 7 mm. No hydronephrosis. * The left kidney is also markedly atrophic. There is a large subcapsular hematoma throughout the lateral aspect of the right kidney measuring up to 4.8 cm. There is heterogeneous hyperdensity withinthe hematoma, suggestive of blood clot. There is a focus of active extravasation posteriorly (axial52). There is significant mass effect on the renal parenchyma. Blood products are also present in the right perinephric space. Scattered cystic foci are present within the compressed right kidney. A 2 mm nonobstructing calculus is noted in the lower pole. No hydronephrosis. No evidence of excreted contrast on the pyelographic phase, although this might be due to early timing. Bladder: Underdistended, but unremarkable. Reproductive organs: Unremarkable. Stomach, small bowel, and large bowel: The distal esophagus is fluid filled. Small type I hiatal hernia. Status post sleeve gastrectomy. The small and large bowel are normal in caliber without evidence of obstruction. Appendix: Normal. Peritoneum and retroperitoneum: Large right retroperitoneal hematoma measuring approximately 13.1 x 13.7 x 17.2 cm, with evidence of contrast extravasation (axial 84) and mass effect. Blood products are tracking through the retroperitoneal fat. No ascites or pneumoperitoneum. Lymph nodes: No enlarged lymph nodes. Blood vessels: Severe atherosclerotic vascular calcification. The infrarenal aorta measures up to 2.8 cm. No evidence of venous thrombosis. The IVC is collapsed. Abdominal and pelvic wall: Unremarkable. Bones: No acute abnormality. IMPRESSION: 1. Large right subcapsular renal and right retroperitoneal hematoma, with evidence of active extravasation. 2. Infrarenal aorta measuring up to 2.8 cm. Results were discussed via telephone by Dr. Salazar with Shelly Martinez MD on 09/19/2022 10:30 AM with understanding voiced back. I have personally reviewed the images and I agree with this report. WSN: [id number] Ordering Physician: Shelly Martinez Dictated By: Juma Salazar MD Dictated Date/Time: 09/19/22 11:14 a Reviewed By: Radha Diane MD Signed By: Radha Diane MD Signed Date/Time: 09/19/22 11:19 am Transcribed By: RAMÓN Transcribed Date/Time: 09/19/22 10:50 am Vital Signs Most recent to oldest [Reference Range]: 1 2 3 Height 165 cm (09/25/22 1:10 PM) 165 cm (09/21/22 3:42 PM) 165 cm (09/19/22 10:30 PM) Weight 95.8 kg (09/25/22 1:10 PM) 103 kg (09/19/22 10:30 PM) Oxygen Saturation [94-100 %] 95 % (09/28/22 12:00 PM) 96 % (09/28/22 4:00 AM) 96 % (09/28/22 12:00 AM) Pulse Rate [55-90 bpm] 66 bpm (09/28/22 12:00 PM) 68 bpm (09/28/22 11:25 AM) 63 bpm (09/28/22 4:00 AM) Body Mass Index [18.5-24.99 kg/m2] 35.19 kg/m2 *>HHI* (09/25/22 1:10 PM) 37.83 kg/m2 *>HHI* (09/19/22 10:30 PM) Blood Pressure [90-138/55-84 mm Hg] 113/67mm Hg (09/28/22 12:00 PM) 128/66mm Hg (09/28/22 11:25 AM) 149/69mm Hg *H* (09/28/22 4:00 AM) Respiratory Rate [16-30 br/min] 20 br/min (12/10/22 12:00 PM) 20 br/min (09/28/22 4:00 AM) 20 br/min (09/28/22 12:00 AM) Temperature [96.8-100.4 DegF] 97.5 DegF (09/28/22 12:00 PM) 98.4 DegF (09/28/22 4:00 AM) 98.2 DegF (09/28/22 12:00 AM) Liters per Minute 2 L/min (09/28/22 12:00 PM) 2 L/min (09/28/22 4:00 AM) 2 L/min (09/28/22 12:00 AM) Mode of Delivery (Oxygen) Nasal cannula (09/28/22 12:00 PM) Nasal cannula (09/28/22 4:00 AM) Nasal cannula (09/28/22 12:00 AM) Blood pressure sites Arm, left (09/28/22 12:00 PM) Arm, left (09/28/22 4:00 AM) Arm, left (09/28/22 12:00 AM) Temperature Route Oral (09/28/22 12:00 PM) Oral (09/28/22 4:00 AM) Oral (09/28/22 12:00 AM) Dry Weight 103 kg (09/19/22 10:30 PM) Weight Obtained Via Bed scale (09/25/22 1:10 PM) Social History Social History Type Response Smoking Status Former smoker; Type: Cigarettes; Other: quit 2006; entered on: 09/19/17 Sex History and physical note * Celeste RINCON, Estela: PERFORM Event Display: History and Physical Hospital Authored Date: [id number] Patient: ??ROLDAN JACINTO ? Age:??72 Years?Sex:??Male?:??1950?? Chief Complaint/Reason for Consultation R flank pain into groin, from home since 0600, hx kidney stones pain causing sob 2L at night History of Present Illness Date of exam: 09/19/2022 ?? 72-year-old male with past medical history significant for CAD status post PCI and stent, heart failure with preserved ejection fraction, moderate AAS, A. fib on Eliquis, uncontrolled hypertension, RICKIE on CPAP and 2 L oxygen nightly, COPD, hyperlipidemia, CVA with residual deficits, GERD, depression and anxiety, CKD 3A, last admitted from 08/19 through 08/20/2022 for COPD exacerbation.?? Presentedto ED earlier today with acute onset right flank pain radiating to his groin that woke him up from his sleep at 6 AM.?? Describes pain as sharp, constant, similar to pain with previous history of kidney stones, aggravated with any movement, no relieving factors, associated with nausea.?? No fevers or chills.?? No dysuria.?? No hematuria.?? No chest pain or shortness of breath. ?? Upon arrival to ED, afebrile, hemodynamically stable, saturating well on 2 L.?? Labs showing leukocytosis with WBC count 17, H&H 10/32.5, reduced from 13.7/44 this month, INR 1.3, BUN and creatinine 26/1.9, increased from 22/1.2 earlier this month.?? LFTs normal.?? COVID-19 negative.?? EKG showing sinus rhythm, no ST-T wave changes.?? CT abdomen and pelvis done initially without contrast and f ollowed by with contrast, showing Large right subcapsular renal and right retroperitoneal hematoma,with evidence of active extravasation. Infrarenal aorta measuring up to 2.8 cm.?? Received Kcentra to reverse anticoagulation.?? IR consulted, 2 right renal arteries noted, no evidence of bleeding noted, small infrarenal abdominal aortic aneurysm noted.?? No embolization done.?? Surgery consulted, no acute surgical intervention recommended, recommended admission to medicine with every 6 hours H&H and serial abdominal exams.?? He has received 1 unit of PRBC in the ED and 1 L IV fluid bolus.?? Admitted to intercare for further management ?? During my exam, continues to complain of flank pain, 8-10/10 in intensity.?? Rest of ROS negative. Review of Systems Constitutional: No fevers, chills HEENT: No headache, rhinorrhea, difficulty swallowing, blurry vision Cardiovascular: No chest pain Respiratory: No shortness of breath, no cough, no wheezing GI: No nausea, no vomiting, no abdominal pain, no change in bowel habits Neuro: No weakness, numbness, tingling in extremities Psych: No acute behavioral changes Muscular skeletal: No joint or muscle pain Endocrine: No recent weight loss or gain, no change in appetite : Right flank pain Objective Vital Signs?? Temperature: 97.7 DegF (09/19/22:21:00) Temperature Route: Oral (09/19/22:30:00) Pulse Rate: 85 bpm (09/19/22:30:00) Respiratory Rate: 18 br/min (09/19/22:30:00) Systolic Blood Pressure: 93 mm Hg (09/19/22::) Diastolic Blood Pressure:??49 mm Hg??Low (09/19/22::) Blood pressure sites: Arm, left (09/19/22:30:00) Mean Arterial Pressure: 64 mm Hg (09/19/22:30:00) Pulse Pressure: 44 mm Hg (09/19/22:30:00) Oxygen Saturation: 98 % (09/19/22::00) Liters per Minute: 2 L/min (09/19/22::00) Mode of Delivery (Oxygen): Nasal cannula (09/19/22::00) Early Warning Score: 6 (09/19/22 22:39:29) ? Physical Exam General: NAD HEENT: Atraumatic, normocephalic, EOMI, PERRLA, moist mucous membranes Neck: Supple Cardiac: S1, S2 heard, RRR Pulmonary: Clear to auscultation bilaterally, good bilateral air entry Abdomen: Soft, nontender, nondistended, bowel sounds heard, right CVAT Extremities: No cyanosis, clubbing or edema Skin: No rash Neuro: No focal deficits, awake and alert Psych: Mood and affect appropriate for encounter Assessment/Plan Assessment:??72-year-old male with past medical history significant for CAD status post PCI and stent, heart failure with preserved ejection fraction, moderate AAS, A. fib on Eliquis, uncontrolled hypertension, RICKIE on CPAP and 2 L oxygen nightly, COPD, hyperlipidemia, CVA with residual deficits, GERD, depression and anxiety, CKD 3A, last admitted from 08/19 through 08/20/2022 for COPD exacerbation,??now admitted with??subcapsular renal hematoma ?? Renal hematoma (S37.019A):?? Retroperitoneal hematoma (K66.1):??Reviewed CT scan of the abdomen, showing??Large right subcapsular renal and right retroperitoneal hematoma, with evidence of active extravasation.??Infrarenal aortameasuring up to 2.8 cm. Hematoma could be related to uncontrolled hypertension. Patient has been having??blood pressures ashigh as??systolic over 200. Recently??started minoxidil??which did bring his blood pressure down [id number] to 190s. Received Kcentra to reverse anticoagulation.?? IR consulted, 2 right renal arteries noted, no evidence of bleeding noted, small infrarenal abdominal aortic aneurysm noted. No embolization done.?? Surgery consulted, no acute surgical intervention recommended, recommended admission to medicine with every 6 hours H&H and serial abdominal exams.?? He has received 1 unit of PRBC in the ED and 1 L IV fluid bolus.?? Continuing intercare level of care Hold Eliquis Recheck PT/INR in a.m. Pain control with IV morphine, as needed Zofran for nausea Please page surgery??if??pain??worsens or H&H??continues to downtrend ?? Acute blood loss anemia (D62):??H&H 10.7/33,??decreased from 13.7/44.??Management as above ?? Atrial fibrillation (I48.91):??Holding Eliquis. Rate controlled ?? Chronic kidney disease, stage 3a (N18.31):??Stable kidney function, continue to monitor periodically ?? Essential hypertension (I10):??Uncontrolled hypertension. Blood pressure recently has remained in the??180s to 200s. Recently started on minoxidil. Continue minoxidil, lisinopril??and carvedilol. Amlodipine was discontinued recently ?? Hyperlipidemia (E78.5):??Continue statin ?? 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 RICKIE (obstructive sleep apnea) (G47.33):??On CPAP with 2 L oxygen nightly ?? CAD S/P percutaneous coronary angioplasty (I25.10):??Continue statin,??Coreg,??lisinopril ?? COPD without exacerbation (J44.9):??As needed??bronchodilators ?? VTE Prophylaxis:??SCDs ?? Code Status:??Full code ? Histories Allergies Allergies ?(Active and Proposed Allergies Only) labetalol? (Severity: Unknown severity, Onset: Unknown) tetanus toxoid? (Severity: Unknown severity, Onset: Unknown) HORSE SERUM PROTEINS AB.IGE.RAST CLASS? (Severity: Unknown severity, Onset: Unknown) ? Past Medical History/Problem List Active Problems??(21) Anxiety Aortic insufficiency (mild to modrate on echo 08/10) Arteriosclerotic heart disease (ASHD) Atrial fibrillation Atypical angina CAD S/P percutaneous coronary angioplasty Chronic kidney disease, stage 3a COPD without exacerbation CVA (cerebral vascular accident) Diastolic dysfunction Dilated aortic root/ Oct 2017 Esophageal reflux Essential hypertension History of COPD Hyperlipidemia Major depression in partial remission Nephrolithiasis Obese class II Obesity RICKIE (obstructive sleep apnea) Type 2 diabetes mellitus with renal manifestations ? Past Surgical History Adenoidectomy Laparoscopy, surgical, gastric restrictive procedure; longitudinal gastrectomy (ie, sleeve gastrectomy) Tonsillectomy Adrenalectomy ? Social History Alcohol Details:??Use: Never. Employment/School Details:??Status: Retired. Exercise Details:??Regular exercise: No. Home/Environment Details:??Living situation: Home/Independent. ??Lives with: Spouse. Nutrition/Health Details:??Diet: Regular. Sexual Details:??Gender identity: Identifies as male. ??Self described orientation: Straight or heterosexual. Substance Abuse Details:??Use: Never. Tobacco Details:??Former smoker, Other: quit 2006. ??Type: Cigarettes. ? Family History Mother (): CAD - Coronary artery disease; Hypertension Father (): CLL (chronic lymphocytic leukemia) Brother: Hypertension Sister (): Hypertension ? Medications Home Medications apixaban (Eliquis 5 mg oral tablet)?1?tab(s)?By Mouth?2 times a day Aspirin (aspirin 81 mg oral delayed release tablet)?81?Milligram?1?tablet?By Mouth?Daily Atorvastatin (atorvastatin 40 mg oral tablet)?1?tab(s)?By Mouth?Daily Carvedilol (carvedilol 25 mg oral tablet)?1?tablet?By Mouth?2 times a day Duloxetine (duloxetine 60 mg oral enteric coated capsule)?1?capsule?60?Milligram?By Mouth?Daily?dose increase Duloxetine (duloxetine 30 mg oral enteric coated capsule)?1?capsule?30?Milligram?By Mouth?Daily?to be combined with 60mg capsule at time of next refill for total daily dose of 90mg Durable Medical Equipment (One Touch Delica Lancets)?See Instructions?1 box = 100 lancetsCheck blood sugar bidicd 10 E11.9 Durable Medical Equipment (One Touch Verio glucometer)?See Instructions?Test glucose levels bidUse with One Touch test strips and lancetsICD 10 E11.9 Durable Medical Equipment (One Touch Verio test strips)?See Instructions?Use with One Touch Verio glucometer to check glucose bidICD 10 E 11.9 Durable Medical Equipment (CPAP ??Machine)?See Instructions?BiPAP 20/15 cm with a heated humidifier. Recommend ordering a machine with compliance data tracking capabilities and following residual AHI.DX RICKIE G47.33 Durable Medical Equipment (CPAP Equipment)?See Instructions?Cpap supplies- mask, tubing, filters, headgear, water chamber, chin strapdx RICKIE G47.33 Durable Medical Equipment (Rollator Walker)?See Instructions?use daily for all ADL's Fenofibrate (fenofibrate 160 mg oral tablet)?0.5?tab(s)?By Mouth?Daily Fluticasone Nasal (fluticasone 50 mcg/inh nasal spray)?2?spray(s)?Nares, Both?Daily Fluticasone-Salmeterol (Advair Diskus 500 mcg-50 mcg inhalation powder)?1?puff(s)?Inhalation?2 times a day Furosemide (furosemide 20 mg oral tablet)?20?Milligram?1?tablet?By Mouth?Daily Isosorbide Mononitrate (isosorbide mononitrate 30 mg oral tablet, extended release)?1?tab(s)?30?Milligram?By Mouth?Daily in AM Lisinopril (lisinopril 20 mg oral tablet)?40?Milligram?2?tablet?By Mouth?Daily Lorazepam (LORazepam 0.5 mg oral tablet)?1?tab(s)?0.5?Milligram?By Mouth?Daily?as needed?as needed for anxiety Minoxidil (minoxidil 2.5 mg oral tablet)?1?tab(s)?2.5?Milligram?By Mouth?Daily Montelukast (montelukast 10 mg oral tablet)?10?Milligram?1?tablet?By Mouth?Daily at bedtime Multivitamin With Minerals (Centrum Silver Men's)?1?tab(s)?By Mouth?Daily Nitroglycerin (nitroglycerin 0.4 mg sublingual tablet)?1?tab(s)?0.4?Milligram?Sublingual?Every 5 minutes?as needed?for chest pain Omeprazole (omeprazole 40 mg oral enteric coated capsule)?1?capsule?By Mouth?2 times a day?for 90?Days Potassium Chloride (Potassium Chloride (Ren-Acqc-Mvk 10) 10 mEq oral tablet, extended release)?1?tab(s)?By Mouth?Daily Ropinirole (rOPINIRole 1 mg oral tablet)?2?tab(s)?2?Milligram?By Mouth?Daily at bedtime?for 90?Days Tamsulosin (tamsulosin 0.4 mg oral capsule)?See Instructions?TAKE 1 CAPSULE BY MOUTH DAILY 30MINUTES AFTER THE SAME MEAL umeclidinium (Incruse Ellipta 62.5 mcg/inh inhalation powder)?1?Each?Inhalation?Every 24 hours?doses should be taken at least 24 hours apart ? Results Recent Labs BLOOD BANK Blood Type O Positive ()?? 09/19/2022 10:27 Antibody Screen Negative ()?? 09/19/2022 10:27 RBC Unit ID [id number] ()?? 09/19/2022 11:12 RBC Available IS ()?? 09/19/2022 11:12 ?? BLOOD COUNT & DIFF WBC 17.0 k/mm3 (High)?? 09/19/2022 08:32 RBC 4.00 m/mm3 (Low)?? 09/19/2022 08:32 Hgb 9.8 Gm/dL (Low)?? 09/19/2022 16:55 Hct 31.9 % (Low)?? 09/19/2022 16:55 MCV 81.3 femtoliters ()?? 09/19/2022 08:32 MCH 25.0 pg (Low)?? 09/19/2022 08:32 MCHC 30.8 g/dL (Low)?? 09/19/2022 08:32 Platelet Count 428 k/mm3 ()?? 09/19/2022 08:32 RDW-SD 50.0 femtoliters (High)?? 09/19/2022 08:32 MPV 11.3 femtoliters ()?? 09/19/2022 08:32 Nucleated RBC (Automated) 0.1 #/100 WBC'S ()?? 09/19/2022 08:32 Abs. NRBC 0.0 k/mm3 ()?? 09/19/2022 08:32 Abs. Neut 13.8 k/mm3 (High)?? 09/19/2022 08:32 Abs. Lymph 1.4 k/mm3 ()?? 09/19/2022 08:32 Abs. Jenkins 1.0 k/mm3 ()?? 09/19/2022 08:32 Abs. Eo 0.4 k/mm3 ()?? 09/19/2022 08:32 Abs. Baso 0.2 k/mm3 (High)?? 09/19/2022 08:32 Neut % 81.2 % (High)?? 09/19/2022 08:32 Lymph % 8.2 % (Low)?? 09/19/2022 08:32 Jenkins % 5.6 % ()?? 09/19/2022 08:32 Eos % 2.6 % ()?? 09/19/2022 08:32 Baso % 1.0 % ()?? 09/19/2022 08:32 Imm Gran 1.4 % ()?? 09/19/2022 08:32 Abs. Imm Gran 0.2 k/mm3 ()?? 09/19/2022 08:32 ?? CHEM GENERAL Sodium 143 mmol/L ()?? 09/19/2022 08:32 Potassium 4.4 mmol/L ()?? 09/19/2022 08:32 Chloride 109 mmol/L (High)?? 09/19/2022 08:32 Bicarbonate Level 25 mmol/L ()?? 09/19/2022 08:32 Anion Gap 9 ()?? 09/19/2022 08:32 Glucose Level 180 mg/dL (High)?? 09/19/2022 08:32 BUN 26 mg/dL (High)?? 09/19/2022 08:32 Creatinine-Blood 1.9 mg/dL (High)?? 09/19/2022 08:32 Estimated GFR Creatinine 38 ML/MIN/1.73 M2 ()?? 09/19/2022 08:32 Calcium 8.7 mg/dL ()?? 09/19/2022 08:32 Protein, Total 5.2 Gm/dL (Low)?? 09/19/2022 08:32 Albumin 3.3 Gm/dL (Low)?? 09/19/2022 08:32 AG Ratio 1.7 ()?? 09/19/2022 08:32 Alkaline Phosphatase 48 units/L ()?? 09/19/2022 08:32 AST (SGOT) 15 units/L ()?? 09/19/2022 08:32 ALT (SGPT) 8 units/L ()?? 09/19/2022 08:32 Bilirubin, Total 0.6 mg/dL ()?? 09/19/2022 08:32 ?? COAG INR 1.1 ()?? 09/19/2022 16:55 Protime (PT) 11.9 seconds (High)?? 09/19/2022 16:55 APTT 27.6 seconds ()?? 09/19/2022 08:32 ?? HEME OTHER Hold Blue Top SPECIMEN DISCARDED AFTER 4 HOURS. ()?? 09/19/2022 08:32 ?? VIROLOGY COVID-19 by RT-PCR NEGATIVE ()?? 09/19/2022 11:11 ? Imaging(s) ?CT Abdomen and Pelvis W/O Contrast ?? 09/19/2022 09:32??by Radha Diane MD ?[facility] IR Angiogram Visceral ?? 09/19/2022 11:34??by Geovanny Santana MD ?CT Abd/Pelvis W/ IV Contrast Only ?? 09/19/2022 10:33??by Radha Diane MD ? EKG study * Event Display: ECG 12-Lead Authored Date: Please click on pdf link to open report * Event Display: ECG 12-Lead Authored Date: Ventricular Rate: 103 BPM Atrial Rate: 163 BPM QRS Duration: 86 ms Q-T Interval: 346 ms QTC Calculation(Bazett): 453 ms P [place]: 2 degrees R [place]: -20 degrees T [place]: 104 degrees Normal sinus rhythm Poor data quality, interpretation may be adversely affected Abnormal ECG When compared with ECG of 19-SEP-2022 08:31, MANUAL COMPARISON REQUIRED, DATA IS UNCONFIRMED Confirmed by SHARRI MILLS MD ([id number]) on 09/21/2022 1:02:44 PM [place]: SHARRI MILLS MD * Event Display: ECG 12-Lead Authored Date: Please click on pdf link to open report * Event Display: ECG 12-Lead Authored Date: Ventricular Rate: 72 BPM Atrial Rate: 72 BPM P-R Interval: 176 ms QRS Duration: 86 ms Q-T Interval: 430 ms QTC Calculation(Bazett): 470 ms P [place]: 24 degrees R [place]: -42 degrees T [place]: 28 degrees Normal sinus rhythm Left axis deviation Abnormal ECG When compared with ECG of 18-AUG-2022 14:00, No significant change was found Confirmed by DAVID BIRD ([id number]) on 09/25/2022 2:32:00 PM [place]: DAVID BIRD Note * Mary Parisi MD: MODIFY, PERFORM Event Display: Discharge/Transfer Note Hospital Authored Date: Patient: ??ROLDAN JACINTO ? Age:??72 Years?Sex:??Male?:??1950?? 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 _ Discharge Medications Aspirin (aspirin 81 mg oral delayed release tablet)?81?Milligram?1?tablet?By Mouth?Daily Atorvastatin (atorvastatin 40 mg oral tablet)?1?tab(s)?By Mouth?Daily Carvedilol (carvedilol 25 mg oral tablet)?1?tablet?By Mouth?2 times a day Cholecalciferol (cholecalciferol 2000 intl units oral tablet)?By Mouth?Daily Durable Medical Equipment (One Touch Delica Lancets)?See Instructions?1 box = 100 lancetsCheck blood sugar bidicd 10 E11.9 Durable Medical Equipment (One Touch Verio glucometer)?See Instructions?Test glucose levels bidUse with One Touch test strips and lancetsICD 10 E11.9 Durable Medical Equipment (One Touch Verio test strips)?See Instructions?Use with One Touch Verio glucometer to check glucose bidICD 10 E 11.9 Durable Medical Equipment (CPAP ??Machine)?See Instructions?BiPAP 20/15 cm with a heated humidifier. Recommend ordering a machine with compliance data tracking capabilities and following residual AHI.DX RICKIE G47.33 Durable Medical Equipment (CPAP Equipment)?See Instructions?Cpap supplies- mask, tubing, filters, headgear, water chamber, chin strapdx RICKIE G47.33 Durable Medical Equipment (Rollator Walker)?See Instructions?use daily for all ADL's Fenofibrate (fenofibrate 160 mg oral tablet)?0.5?tab(s)?By Mouth?Daily Fluticasone Nasal (fluticasone 50 mcg/inh nasal spray)?2?spray(s)?Nares, Both?Daily Fluticasone-Salmeterol (Advair Diskus 500 mcg-50 mcg inhalation powder)?1?puff(s)?Inhalation?2 times a day Folic Acid (folic acid 1 mg oral tablet)?1?Milligram?1?tablet?By Mouth?Daily Heparin (Heparin Inj)?1?Milliliter?5,000?unit(s)?Subcutaneous Injection?3 times aday Isosorbide Mononitrate (isosorbide mononitrate 30 mg oral tablet, extended release)?1?tab(s)?30?Milligram?By Mouth?Daily in AM Melatonin (melatonin 3 mg oral tablet)?3?Milligram?By Mouth?Daily at bedtime?as needed?Insomnia Minoxidil (minoxidil 2.5 mg oral tablet)?1?tab(s)?2.5?Milligram?By Mouth?Daily Montelukast (montelukast 10 mg oral tablet)?10?Milligram?1?tablet?By Mouth?Daily at bedtime Multivitamin With Minerals (Centrum Silver Men's)?1?tab(s)?By Mouth?Daily Omeprazole (omeprazole 40 mg oral enteric coated capsule)?1?capsule?By Mouth?2 times a day?for 90?Days Ropinirole (rOPINIRole 1 mg oral tablet)?2?tab(s)?2?Milligram?By Mouth?Daily at bedtime?for 90?Days Tamsulosin (tamsulosin 0.4 mg oral capsule)?See Instructions?TAKE 1 CAPSULE BY MOUTH DAILY 30MINUTES AFTER THE SAME MEAL Trazodone (traZODone 50 mg oral tablet)?25?Milligram?0.5?tablet?By Mouth?Every 8 hours?as needed?Anxiety umeclidinium (Incruse Ellipta 62.5 mcg/inh inhalation powder)?1?Each?Inhalation?Every 24 hours?doses should be taken at least 24 hours apart ? Medications Started Folic acid, heparin subcu, cholecalciferol??trazodone, melatonin Medications Discontinued Eliquis, potassium chloride, lorazepam, lisinopril, Lasix, Cymbalta Doses Changed None Allergies Allergies ?(Active and Proposed Allergies Only) labetalol? (Severity: Unknown severity, Onset: Unknown) tetanus toxoid? (Severity: Unknown severity, Onset: Unknown) HORSE SERUM PROTEINS AB.IGE.RAST CLASS? (Severity: Unknown severity, Onset: Unknown) ? PCP Follow-Up/Heads-Up Patient needs CBC BMP in 5 to 7 days.?? Needs to follow-up with cardiology as outpatient for watchman device. Future Appointments Friday 9:00 AM EST ?? With: Brennan Tyson MD Where: [facility] [address] [place] [address]- Hospital Course ??72-year-old male with past medical history significant for CAD status post PCI and stent, heart failure with preserved ejection fraction, moderate AAS, A. fib on Eliquis, uncontrolled hypertension,RICKIE on CPAP and 2 L oxygen nightly, COPD, hyperlipidemia, CVA with residual deficits, GERD, depression and anxiety, CKD 3A, last admitted from 08/19 through 08/20/2022 for COPD exacerbation,??now admit carlos with??subcapsular renal hematoma In setting of being on Eliquis for A. fib at home. ??Repeat scans have shown??no active extravasation and patient's??hematoma seems to have stabilized.?Patientreceived??3 units of PRBCs and Kcentra.? patient also has developed acute kidney injury on CKD??a nd?? In setting of hemorrhage??and hypotension??and nephrology has been consulted And patient has been started on dialysis.?? Patient was transferred to [facility] care??because of concern for encephalopathy??and further monitoring however??patient's somnolence has resolved??and?hemoglobin has remained stable??therefore patient is being transferred out??often to care 09/24/2022.?Patient has been stable on medical floor,??now permacath placed. ??Patient is currently on Friday dialysis.?? Patient is on and off confused??which could be because of hospital-acquired delirium??versus metabolic encephalopathy.?? Patient is??medically stable to be discharged to rehab today. ?? # Renal hematoma (S37.019A):?? # Retroperitoneal hematoma (K66.1): # Acute blood loss anemia -CT angio??of the abdomen 09/19/2022??showed large right subcapsular renal??and right retroperitoneal hematoma with evidence of active extravasation??however??repeat CT angio abdomen??did not show anyevidence of active?contrast extravasation on 09/20/2022 -Patient is on anticoagulation at Eliquis at home, Eliquis now discontinued -Patient received Kcentra, 2 units of PRBCs 09/20/2022??and 1 unit PRBCs 09/23/2022 -Surgery consulted, no surgical??intervention at this point -Hemoglobin stable -hematology has been consulted?there was concern about TTS??because of??versus DIC??continued bleeding from right femoral catheter??however bleeding has stopped Hematology thinks patient is very high risk for therapeutic anticoagulation Patient's Eliquis now discontinued ?? # Leucocytosis : -Patient with leukocytosis since presentation??around 17 K??which has remained stable His UA has been negative for UTI however appears??severely concentrated, specific gravity 1.050?? chest x-ray??atelectasis -Patient??received vancomycin 09/22/2022 and was continued on Zosyn??however no clear??source and therefore Zosyn has been discontinued 09/24/2022?? -leukocytosis could also be reactive ? #Somnolence: Currently resolved?? CT head, CTA head and neck,Did not show any significant findings Ammonia normal Seen by neurology, no need for MRI brain ? Agitation Patient was??confused and agitated??2 days back and required restraints Currently off of restraints??for more than 24 hours Patient is started on trazodone 25 mg p.o. every 8 hours as needed agitation Could be metabolic encephalopathy versus hospital-acquired delirium We will avoid anticholinergics, benzodiazepines Will discontinue home medication Cymbalta as patient is now on dialysis Follow with geriatrics as outpatient ? #Acute kidney injury on CKD 3a -Likely in setting of hemorrhage and hypotension??and also receiving contrast Nephrology on board -CT scan??of the abdomen does not show any hydronephrosis,??shows unchanged bilateral atrophic appearance of the kidneys with bilateral nonobstructing renal calculi measuring up to 7 mm -Patient currently on dialysis Status post permacath placement on 09/25/2022 Patient is currently on dialysis Friday Last dialysis 09/28/2022 ? #Hypertension:??Blood pressure stable,??continue Coreg,??Imdur ?? #History of A. fib:??Currently rate controlled,?? Coreg, continue to hold Eliquis. per hematology??recs patient is high risk??for bleeding. Patient's has bled score??is 5, and 9 percent risk of bleeding Discussed with??cardiology??DR.Buffum Mckeon,??will arrange outpatient follow-up for watchman device Discussed with patient's , she agreed to stop Eliquis??due to high risk ?? 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 #VTE Prophylaxis:??Started on subcu heparin #Code Status:??Full code -Labs: Ordered #Disposition:??PT evaluation -rehab placement ? #Family update:??Discussed with patient's today She agreed for discharge to rehab Objective Assessment and Plan ? Measurements?? Height: 165 cm (09/25/22) Weight: 95.8 kg (09/25/22) Dry Weight: 103 kg (09/19/22) Body Mass Index:??35.19 kg/m2??Critical (09/25/22) ? Vital Signs?? Temperature: 98.4 DegF (09/28/22 04:00:00) Temperature Route: Oral (09/28/22 04:00:00) Pulse Rate: 63 bpm (09/28/22 04:00:00) Respiratory Rate: 20 br/min (09/28/22 04:00:00) Systolic Blood Pressure:??149 mm Hg??High (09/28/22 04:00:00) Diastolic Blood Pressure: 69 mm Hg (09/28/22 04:00:00) Blood pressure sites: Arm, left (09/28/22 04:00:00) Pulse Pressure: 80 mm Hg (09/28/22 04:00:00) Oxygen Saturation: 96 % (09/28/22 04:00:00) Liters per Minute: 2 L/min (09/28/22 04:00:00) Mode of Delivery (Oxygen): Nasal cannula (09/28/22 04:00:00) FiO2: 28 % (09/28/22 00:25:00) Early Warning Score: 3 (09/28/22 09:20:16) SOFA Calculated: 7 (09/28/22 10:16:45) ? Intake/Output? 09/19 14:51 09/28 07:00 09/27 07:00 09/26 07:00 09/25 07:00 ?? 09/28 11:14 09/28 11:14 09/28 06:59 09/27 06:59 09/26 06:59 Intake ? 6914 ?0 ?490 ?250 ?550 Output ?44203 ?0 ?200 ? 1550 ?200 Net Total ?-3851 ?0 ?290 ?-1300 ?350 ? Urine Count ? 10 ?0 ?0 ?0 ?0 ? . Physical Exam General: Is appears comfortable in no distress HEENT: ??mucous mucous membranes appear wet, PERRLA Cardiovascular: S1-S2 heard no murmurs appreciated Respiratory: CTA B without any wheezing or crackles?? GI: Abdomen nontender to palpation, no distention, no obvious hepatosplenomegaly Neuro: Alert awake x1, follows commands Psych: Appears calm Consultants Nephrology,??hematology, surgery Pending Results Add On Lab Order ordered on 09/19/2022 Add On Lab Order ordered on 09/22/2022 Add On Lab Order ordered on 09/23/2022 Add On Lab Order ordered on 09/23/2022 Add On Lab Order ordered on 09/24/2022 Add On Lab Order ordered on 09/27/2022 Basic Metabolic Panel ordered on 09/24/2022 CBC ordered on 09/24/2022 CBC w/ Differential ordered on 09/26/2022 Hold Gel Top Tube ordered on 09/21/2022 Hold Lavender Tube (BB) ordered on 09/19/2022 Magnesium Level ordered on 09/24/2022 Phosphorus Level ordered on 09/24/2022 Follow-Up Appointments Added Follow Up ?Time Frame ?Comments Marbella RINCON, Brennan?In 7 days to check CBC, BMP Follow-up cardiology in 2 weeks Patient Instructions Follow with PCP in 5 to 7 days to check CBC, BMP Follow-up with cardiology as outpatient in 2 weeks for watchman device Continue hemodialysis as per nephrology Follow with neurology as outpatient??for delirium Home Health Face to Face ^HomeHealthFTF Results Discharge Labs BACTERIOLOGY MRSA PCR Result Negative, MRSA target DNA not detected. ()?? 09/22/2022 03:25 S Aureus ??PCR Result Negative, SA target DNA not detected. ()?? 09/22/2022 03:25 ?? BLOOD BANK Blood Type O Positive ()?? 09/23/2022 15:17 Antibody Screen Negative ()?? 09/23/2022 15:17 RBC Unit ID [id number] ()?? 09/23/2022 17:28 RBC Available PT ()?? 09/23/2022 17:28 ?? BLOOD COUNT & DIFF WBC 16.5 k/mm3 (High)?? 09/28/2022 06:22 RBC 3.27 m/mm3 (Low)?? 09/28/2022 06:22 Hgb 8.5 Gm/dL (Low)?? 09/28/2022 06:22 Hct 27.4 % (Low)?? 09/28/2022 06:22 MCV 83.8 femtoliters ()?? 09/28/2022 06:22 MCH 26.0 pg (Low)?? 09/28/2022 06:22 MCHC 31.0 g/dL (Low)?? 09/28/2022 06:22 Platelet Count 525 k/mm3 (High)?? 09/28/2022 06:22 RDW-SD 54.4 femtoliters (High)?? 09/28/2022 06:22 MPV 10.5 femtoliters ()?? 09/28/2022 06:22 Nucleated RBC (Automated) 0.1 #/100 WBC'S ()?? 09/28/2022 06:22 Abs. NRBC 0.0 k/mm3 ()?? 09/28/2022 06:22 Abs. Neut 12.9 k/mm3 (High)?? 09/27/2022 01:23 Abs. Lymph 1.0 k/mm3 ()?? 09/27/2022 01:23 Abs. Jenkins 1.3 k/mm3 ()?? 09/27/2022 01:23 Abs. Eo 0.5 k/mm3 (High)?? 09/27/2022 01:23 Abs. Baso 0.2 k/mm3 (High)?? 09/27/2022 01:23 Neut % 74.0 % ()?? 09/27/2022 01:23 Lymph % 6.0 % (Low)?? 09/27/2022 01:23 Jenkins % 8.0 % ()?? 09/27/2022 01:23 Eos % 3.0 % ()?? 09/27/2022 01:23 Baso % 1.0 % ()?? 09/27/2022 01:23 Myelocytes % 3.0 % ()?? 09/27/2022 01:23 Metamyelocyte % 2.0 % ()?? 09/27/2022 01:23 Band % 3.0 % ()?? 09/27/2022 01:23 Peripheral Blood Smear Review Interp. Reviewed by pathologist. ()?? 09/22/2022 16:11 RBC Morphology FEW ()?? 09/27/2022 01:23 Platelet Estimate INCREASED ()?? 09/27/2022 01:23 Hemoglobin (POC) POC Cartridge 7.5 Gm/dL (Low)?? 09/21/2022 12:57 Hematocrit (POC) POC Cartridge 22 % (Low)?? 09/21/2022 12:57 Retic Count 3.5 % (High)?? 09/23/2022 04:00 Retic Count Corrected 1.9 % ()?? 09/23/2022 04:00 Retic Production Index 1.0 % ()?? 09/23/2022 04:00 Imm Gran 1.3 % ()?? 09/21/2022 21:09 Abs. Imm Gran 0.2 k/mm3 ()?? 09/21/2022 21:09 ? BLOOD GAS pH (POC) POC Cartridge 7.30 (Low)?? 09/21/2022 12:57 pCO2 (POC) POC Cartridge 48.6 mm Hg (High)?? 09/21/2022 12:57 pO2 (POC) POC Cartridge 69 mm Hg (Low)?? 09/21/2022 12:57 Estimated Bicarbonate (POC) POC Cart 23.9 mmol/L ()?? 09/21/2022 12:57 % O2 Sat Arterial (POC) POC Cartridge 91 % (Low)?? 09/21/2022 12:57 FIO2 (POC) POC Cartridge 40 % ()?? 09/21/2022 12:57 Base Excess (POC) POC Cartridge NEGATIVE 3 ()?? 09/21/2022 12:57 Specimen Type - Blood Gas ARTERIAL ()?? 09/21/2022 12:57 ?? CHEM GENERAL Sodium 139 mmol/L ()?? 09/28/2022 06:22 Potassium 3.8 mmol/L ()?? 09/28/2022 06:22 Chloride 99 mmol/L ()?? 09/28/2022 06:22 Bicarbonate Level 27 mmol/L ()?? 09/28/2022 06:22 Anion Gap 13 ()?? 09/28/2022 06:22 Sodium (POC) POC Cartridge 143 mmol/L ()?? 09/21/2022 12:57 Potassium (POC) POC Cartridge 4.9 mmol/L ()?? 09/21/2022 12:57 Glucose Level 108 mg/dL (High)?? 09/24/2022 00:44 Glucose (POC) POC Cartridge 102 (High)?? 09/21/2022 12:57 Glucose, POC 138 mg/dL (High)?? 09/27/2022 16:56 BUN 42 mg/dL (High)?? 09/24/2022 00:44 Creatinine-Blood 3.8 mg/dL (High)?? 09/24/2022 00:44 Estimated GFR Creatinine 16 ML/MIN/1.73 M2 ()?? 09/24/2022 00:44 Calcium 8.7 mg/dL ()?? 09/24/2022 00:44 Ionized Calcium (POC) POC Cartridge 1.19 mmol/L ()?? 09/21/2022 12:57 Phosphorus 3.7 mg/dL ()?? 09/24/2022 00:44 Magnesium 2.1 mg/dL ()?? 09/24/2022 00:44 Protein, Total 5.2 Gm/dL (Low)?? 09/19/2022 08:32 Albumin 3.3 Gm/dL (Low)?? 09/19/2022 08:32 AG Ratio 1.7 ()?? 09/19/2022 08:32 LDH 396 units/L (High)?? 09/22/2022 16:11 Alkaline Phosphatase 48 units/L ()?? 09/19/2022 08:32 Lipase 85 units/L (High)?? 09/21/2022 21:09 AST (SGOT) 15 units/L ()?? 09/19/2022 08:32 ALT (SGPT) 8 units/L ()?? 09/19/2022 08:32 Bilirubin, Total 0.6 mg/dL ()?? 09/19/2022 08:32 Vitamin B12 Level 2543 pg/mL (High)?? 09/24/2022 00:44 Folic Acid Level 9.5 ng/mL ()?? 09/24/2022 00:44 Lactate 1.1 mmol/L ()?? 09/21/2022 21:00 Iron Level 24 mcg/dL (Low)?? 09/24/2022 00:44 Ferritin Level 178 ng/mL ()?? 09/24/2022 00:44 ? COAG INR 1.2 (High)?? 09/22/2022 16:11 Protime (PT) 12.1 seconds (High)?? 09/22/2022 16:11 APTT 27.6 seconds ()?? 09/19/2022 08:32 Fibrinogen 550 mg/dL (High)?? 09/22/2022 16:11 [id number] Activity 50.8 (Low)?? 09/22/2022 16:11 ADAMTS 13 Ab Comment Comment ()?? 09/22/2022 16:11 ?? ENDOCRINE/TUMOR MARKER PTH, Intact 72 pg/mL (High)?? 09/24/2022 00:44 ? HEME OTHER Hold Lavender Top SPECIMEN DISCARDED AFTER 24 HOURS. ()?? 09/26/2022 06:21 Hold Blue Top SPECIMEN DISCARDED AFTER 4 HOURS. ()?? 09/19/2022 08:32 ?? IMMUNOLOGY GENERAL Haptoglobin 166 mg/dL ()?? 09/22/2022 16:11 ? MISC. CHEMISTRY 25 OH-Vitamin D Level 23.0 ng/mL ()?? 09/24/2022 00:44 Ammonia, Venous 23 ??mole/L ()?? 09/21/2022 13:30 Procalcitonin 0.55 ng/mL ()?? 09/21/2022 21:09 Hold Gel Top SPECIMEN DISCARDED AFTER 1 WEEK ()?? 09/27/2022 01:23 ?? SEROLOGY INF DISEASE Hepatitis B Surface Antigen NEGATIVE (N)?? 09/21/2022 17:20 Hepatitis C Ab NEGATIVE (N)?? 09/21/2022 17:20 Anti-HBS Quant 0.00 mIU/mL ()?? 09/21/2022 17:20 ? UA/URINALYSIS Appear/Color, Urine YELLOW ()?? 09/21/2022 22:06 Clarity TURBID (Abnormal)?? 09/21/2022 22:06 Specific [place], Urine >1.050 (High)?? 09/21/2022 22:06 pH, Urine 5.5 ()?? 09/21/2022 22:06 Albumin, Urine 2+ (Abnormal)?? 09/21/2022 22:06 Glucose, Urine NEGATIVE ()?? 09/21/2022 22:06 Ketones, Urine NEGATIVE ()?? 09/21/2022 22:06 Bilirubin, Urine NEGATIVE ()?? 09/21/2022 22:06 Hemoglobin, Urine 2+ (Abnormal)?? 09/21/2022 22:06 Nitrite, Urine NEGATIVE ()?? 09/21/2022 22:06 Leukocyte, Urine NEGATIVE ()?? 09/21/2022 22:06 Urobilinogen NORMAL mg/dL ()?? 09/21/2022 22:06 WBC's, Urine 2 /HPF ()?? 09/21/2022 22:06 RBC's, Urine 9 /HPF (High)?? 09/21/2022 22:06 Squamous Epith 1 /HPF ()?? 09/21/2022 22:06 Mucus SLIGHT /LPF ()?? 09/21/2022 22:06 Culture Indication CULTURE NOT INDICATED ()?? 09/21/2022 22:06 ? VIROLOGY Influenza A PCR NEGATIVE ()?? 09/21/2022 21:47 Influenza B PCR NEGATIVE ()?? 09/21/2022 21:47 RSV PCR NEGATIVE ()?? 09/21/2022 21:47 COVID-19 by RT-PCR NEGATIVE ()?? 09/19/2022 11:11 COVID-19 PCR Specimen Source NASAL ()?? 09/26/2022 05:00 COVID-19 PCR Result NEGATIVE ()?? 09/26/2022 05:00 ? Microbiology ?? COVID-19 (Novel Coronavirus), Rapid PCR?? Completed?? Source: Nasal Body Site: Nose Collected Dt/Tm: 09/19/2022 10:16 Last Updated Dt/Tm: 09/19/2022 14:04 Blood Culture?? Completed?? Source: Blood Body Site: ?? Collected Dt/Tm: 09/21/2022 20:45 Last Updated Dt/Tm: 09/21/2022 20:46 ?SPECIMEN DESCRIPTION : BLOOD LEFT HANDSPECIAL REQUESTS : NONECULTURE : NO GROWTH 5 DAYS.REPORT STATUS : FINAL 09/26/2022 Blood Culture #2?? Completed?? Source: Blood Body Site: ?? Collected Dt/Tm: 09/21/2022 20:45 Last Updated Dt/Tm: 09/21/2022 20:46 ?SPECIMEN DESCRIPTION : BLOOD right armSPECIAL REQUESTS : NONECULTURE : NO GROWTH 5 DAYS.REPORT STATUS : FINAL 09/26/2022 COVID-19, RSV, and Flu A/B, Rapid PCR?? Completed?? Source: Nasal Body Site: Nose Collected Dt/Tm: 09/21/2022 21:42 Last Updated Dt/Tm: 09/21/2022 23:04 MRSA PCR Nasal Swab?? Completed?? Source: Swab Body Site: Nares Both Collected Dt/Tm: 09/22/2022 03:25 Last Updated Dt/Tm: 09/22/2022 08:35 COVID-19 (2018 Novel Coronavirus) PCR?? Completed?? Source: Nasal Body Site: Nose Collected Dt/Tm: 09/23/2022 04:35 Last Updated Dt/Tm: 09/23/2022 15:27 COVID-19 (2019 Novel Coronavirus) PCR?? Completed?? Source: Nasal Body Site: Nose Collected Dt/Tm: 09/26/2022 06:24 Last Updated Dt/Tm: 09/26/2022 16:59 ? 45_ minutes spent on discharge * Larisa Beckwith RN: PERFORM, SIGN, VERIFY Event Display: Case Management Discharge Plan Authored Date: Patient: ROLDAN JACINTO Age: 72 years Sex: Male : 1950 Associated Diagnoses: None Author: Larisa Beckwith RN Discharge Plan Case Management Discharge Plan : Case Management Discharge Plan Data 09/28/2022 11:03 EST Discharge Level of Care at Discharge [facility] facility Discharge Nursing Homes/Rehab Facilities [facility] Discharge Transportation Arranged [facility] [address] [place] [address] Mode of Transportation Arranged Ambulance Name of Agency #1 [facility] Agency Online Education Manager # Service Categories #1 Physical Therapy, [facility]pc Service Comments #1 You are being discharged to [facility] in [place] for short term rehab. They are notified of your arrival today. * Yoon Mcnulty RN: PERFORM Event Display: Patient Education/Instruction Authored Date: Inpatient Adult Discharge Instructions [address] [address] Name: ROLDAN JACINTO : 1950 Visit: 09/19/2022 14:51:00 Current Date: 09/28/2022 15:43 Account: [id number] Inpatient Adult Discharge Instructions We would like [...] and their families. Surveys are administered by [employer] ?? If further treatment with your primary care physician or another doctor is recommended, it is important for you to keep the appointment. Call your primary care physician or return to the Emergency Department immediately if your condition worsens, fails to improve, or new symptoms develop. If you need to find a doctor, you can call [facility] for a referral at [phone] or toll free at [phone] or log in to [email or web address].. ?? You can view and manage your care through the patient portal or by using a health care jacobo of your choosing. [employer] is a website that allows you to securely view your medical information including your hospital discharge summary, office visit summaries, medications and follow-up visits. You can also request appointments, renew medications, and request access to your medical information using a health care jacobo of your choosing, or just ask a question. You can enroll at [email or web address] or register during your next office visit. You have been discharged from [facility], Patient Care Unit: D6B. If you have any questions regarding these instructions after you leave, please call us and we will be happy to assist you. [facility] Your Care Team Attending Physician Ailin RINCON, Mary Consulting Providers Max RINCON, Geovanny Peres MD, Ajay Regalado; Ankit RINCON, Byron Olivarez; Ousmane RINCON, Juan Josemtkelsey; Norbert RINCON, Jin ; Fay RINCON, Anton Discharging Providers Ailin RINCON, Mary Reason for Admission R flank pain into groin, from home since 0600, hx kidney stones pain causing sob 2L at night Your Diagnosis Perinephric hematoma Nontraumatic retroperitoneal hematoma Anemia COPD without exacerbation Afib Anticoagulated Atrial fibrillation Chronic kidney disease, stage 3a Essential hypertension Hyperlipidemia Type 2 diabetes mellitus with renal manifestations Major depression in partial remission RICKIE (obstructive sleep apnea) CAD S/P percutaneous coronary angioplasty Renal hematoma Retroperitoneal hematoma Acute blood loss anemia Tests Performed Below is a partial list of the tests performed during your hospitalization. You may have had other tests and procedures not included in this list. Please discuss all test results with your provider. 25OH VITAMIN D ABG POC CARTRIDGE [id number] Activity Reflex Panel [id number] Reflex Comment Ammonia Venous APTT BASE EXCESS POC CARTRIDGE Basic Metabolic Panel BUN CALCIUM IONIZED POC CART CBC CBC w/ Differential Comprehensive Metabolic Panel COVID-19 (2019 Novel Coronavirus) PCR COVID-19 (Novel Coronavirus), Rapid PCR COVID-19, RSV, and Flu A/B, Rapid PCR Creatinine Electrolytes FERRITIN Fibrinogen FOLIC ACID GLUCOSE POC GLUCOSE POC CARTRIDGE H + H Haptoglobin HEMATOCRIT POC CARTRIDGE HEMOGLOBIN AND HEMATOCRIT HEMOGLOBIN POC CARTRIDGE Hepatitis Panel Dial Hold Blue Top Tube HOLD GEL TUBE HOLD LAVENDER TUBE INR IRON Lactic Acid Level LDH Lipase Lytes Magnesium Level Mg Level MRSA PCR Nasal Swab O2 PERCENT (POINT OF CARE) Peripheral Blood Smear Review Phosphorus Level POTASSIUM POC CARTRIDGE Procalcitonin Level PT (INR) PTH, INTACT RETICULOCYTE COUNT SODIUM POC CARTRIDGE Type and Screen Urinalysis Complete/Reflex Culture VITAMIN B12 CT Abd/Pelvis W/ IV Contrast Only CT Abdomen and Pelvis W/O Contrast CT Angio Abdomen and Pelvis CT Angio Head Hyperacute Stroke CT Angio Neck Hyperacute Stroke CT Head-Hyper Acute Stroke CXR Portable IR Venous Access Portable Chest XR Chest Portable Primary Care Provider Marbella RINCON, Brennan Advance Directive Health Care Proxy on File Yes - Health Care Proxy No qualifying data available. Discharge Vitals Temperature: 97.5 DegF Height: 165 cm Pulse Rate: 66 bpm Weight: 95.8 kg Respiratory Rate: 20 br/min Body Mass Index:??35.19 kg/m2??Critical Systolic Blood Pressure: 113 mm Hg Body surface area: 2.1 Diastolic Blood Pressure: 67 mm Hg ?? Oxygen Saturation: 95 % ?? Studies Pending All tests and labs ordered during this hospital stay have been completed unless listed below. Please discuss all pending results with your provider listed above in these instructions. ?? Add On Lab Order Basic Metabolic Panel CBC CBC w/ Differential Hgb + Hct (H + H) Hold Gel Top Tube (HOLD GEL TUBE) Hold Lavender Tube (BB) Magnesium Level Phosphorus Level What to do next Instructions From Your Doctor Follow with PCP in 5 to 7 days to check CBC, BMP Follow-up with cardiology as outpatient in 2 weeks for watchman device Continue hemodialysis as per nephrology Follow with neurology as outpatient??for delirium Discharge Orders Diet:??Renal diet Scheduled Follow-Up Appointments Friday 9:00 AM EST ?? With: Brennan Tyson MD Where: [address] [address]- You Need to Schedule the Following Appointments Follow Up with??Brennan Tyson MD When?? Why: In 7 days to check CBC, BMP Where: ?? Follow Up with??Follow-up cardiology in 2 weeks When?? Where: Discharge Medications ROLDAN JACINTO :1950 Visit Date:09/19/2022 Medications: Please continue your medications until treatment is completed or stopped by your provider. Medications not listed below should be discontinued. Discuss any questions related to medications with your provider. What How Much When Why Instructions Next Dose New Cholecalciferol (cholecalciferol 2000 intl units oral tablet) Oral Daily New Folic Acid (folic acid 1 mg oral tablet) 1 tab(s) Oral Daily New Heparin (Heparin Inj) 5,000 unit(s) Subcutaneous Injection 3 times a day New Melatonin (melatonin 3 mg oral tablet) 3 Milligram Oral Daily at Bedtime as needed for Insomnia New Trazodone (traZODone 50 mg oral tablet) 0.5 tab(s) Oral Every 8 hours as needed for Anxiety Unchanged Aspirin (aspirin 81 mg oral delayed release tablet) 1 tab(s) Oral Daily Unchanged Atorvastatin (atorvastatin 40 mg oral tablet) 1 tab(s) Oral Daily Unchanged Carvedilol (carvedilol 25 mg oral tablet) 1 tab(s) Oral Twice a day Unchanged Durable Medical Equipment (CPAP Machine) See instructions BiPAP 20/ 15 cm with a heated humidifier. Recommend ordering a machine with compliance data tracking capabilities and following residual AHI. DX RICKIE G47.33 ?? Unchanged Durable Medical Equipment (CPAP Equipment) See instructions Cpap supplies- mask, tubing, filters, headgear, water chamber, chin strap dx RICKIE G47.33 ?? Unchanged Durable Medical Equipment (One Touch Delica Lancets) See instructions 1 box = 100 lancets ?? Check blood sugar bid icd 10 E11.9 ?? Unchanged Durable Medical Equipment (One Touch Verio glucometer) See instructions Test glucose levels bid Use with One Touch test strips and lancets ICD 10 E11.9 ?? Unchanged Durable Medical Equipment (One Touch Verio test strips) See instructions Use with One Touch Verio glucometer to check glucose bid ICD 10 E 11.9 ?? Unchanged Durable Medical Equipment (Rollator Walker) See instructions Lumbar spinal stenosis OA (osteoarthritis) use daily for all ADL's ?? Unchanged Fenofibrate (fenofibrate 160 mg oral tablet) 0.5 tab(s) Oral Daily Unchanged Fluticasone Nasal (fluticasone 50 mcg/ inh nasal spray) 2 spray(s) Nares, Both Daily Unchanged Fluticasone-Salmeterol (Advair Diskus 500 mcg-50 mcg inhalation powder) 1 puff(s) Inhalation Twice a day Unchanged Isosorbide Mononitrate (isosorbide mononitrate 30 mg oral tablet, extended release) 1 tab(s) Oral Daily in the morning Unchanged Minoxidil (minoxidil 2.5 mg oral tablet) 1 tab(s) Oral Daily Unchanged Montelukast (montelukast 10 mg oral tablet) 1 tab(s) Oral Daily at Bedtime Unchanged Multivitamin With Minerals (Centrum Silver Men's) 1 tab(s) Oral Daily Unchanged Omeprazole (omeprazole 40 mg oral enteric coated capsule) 1 capsule Oral Twice a day Duration: 90 Days Unchanged Ropinirole (rOPINIRole 1 mg oral tablet) 2 tab(s) Oral Daily at Bedtime Duration: 90 Days Unchanged Tamsulosin (tamsulosin 0.4 mg oral capsule) See instructions TAKE 1 CAPSULE BY MOUTH DAILY 30 MINUTES AFTER THE SAME MEAL ?? Unchanged umeclidinium (Incruse Ellipta 62.5 mcg/ inh inhalation powder) 1 Each Inhalation Every 24 hours doses should be taken at least 24 hours apart ? What How Much When Comments Stop Taking apixaban (Eliquis 5 mg oral tablet) 1 tab(s) Oral Twice a day Stop Taking Duloxetine (duloxetine 30 mg oral enteric coated capsule) 1 capsule Oral Daily to be combined with 60mg capsule at time of next refill for total daily dose of 90mg ?? Stop Taking Duloxetine (duloxetine 60 mg oral enteric coated capsule) 1 capsule Oral Daily dose increase ?? Stop Taking Furosemide (furosemide 20 mg oral tablet) 1 tab(s) Oral Daily Stop Taking Lisinopril (lisinopril 20 mg oral tablet) 2 tab(s) Oral Daily Stop Taking Lorazepam (LORazepam 0.5 mg oral tablet) 1 tab(s) Oral Daily as needed for as needed for anxiety Stop Taking Nitroglycerin (nitroglycerin 0.4 mg sublingual tablet) 1 tab(s) Sublingual Every 5 minutes as needed for for chest pain Stop Taking Potassium Chloride (Potassium Chloride (Yjh-Mhqi-Lpg 10) 10 mEq oral tablet, extended release) 1 tab(s) Oral Daily Test Results Below is a partial list of the most recent Laboratory test results done prior to this discharge. You may have had other tests and procedures not included in this list. Please discuss all test resultswith your provider. Antibody Screen - Negative (09/19/2022) Blood Type - O Positive (09/19/2022) RBC Available - PT (09/23/2022) RBC Unit ID - [id number] (09/23/2022) 25OH VITAMIN D (09/24/2022) ???25 OH-Vitamin D Level - 23.0 ng/mL ABG POC CARTRIDGE (09/21/2022) ???pH (POC) POC Cartridge - 7.30???pCO2 (POC) POC Cartridge - 48.6 mm Hg???pO2 (POC) POC Cartridge - 69 mm Hg???Estimated Bicarbonate (POC) POC Cart - 23.9 mmol/L???% O2 Sat Arterial (POC) POC Cartridge - 91 %???Specimen Type - Blood Gas - ARTERIAL [id number] Activity Reflex Panel (09/22/2022) ???[id number] Activity - 50.8 [id number] Reflex Comment (09/22/2022) ???ADAMTS 13 Ab Comment - Comment Ammonia Venous (09/21/2022) ???Ammonia, Venous - 23 ??mole/L APTT (09/19/2022) ???APTT - 27.6 seconds BASE EXCESS POC CARTRIDGE (09/21/2022) ???Base Excess (POC) POC Cartridge - NEGATIVE 3 Basic Metabolic Panel (09/24/2022) ???Sodium - 138 mmol/L???Potassium - 4.1 mmol/L???Chloride - 100 mmol/L???Bicarbonate Level - 25 mmol/L???Anion Gap - 13???Glucose Level - 108 mg/dL???BUN - 42 mg/dL???Creatinine-Blood - 3.8 mg/dL???Estimated GFR Creatinine - 16 ML/MIN/1.73 M2???Calcium - 8.7 mg/dL BUN (09/20/2022) ???BUN - 35 mg/dL CALCIUM IONIZED POC CART (09/21/2022) ???Ionized Calcium (POC) POC Cartridge - 1.19 mmol/L CBC (09/28/2022) ???WBC - 16.5 k/mm3???RBC - 3.27 m/mm3???Hgb - 8.5 Gm/dL???Hct - 27.4 %???MCV - 83.8 femtoliters???MCH - 26.0 pg???MCHC - 31.0 g/dL???Platelet Count - 525 k/mm3???RDW-SD - 54.4 femtoliters???MPV - 10.5 femtoliters???Nucleated RBC (Automated) - 0.1 #/100 WBC'S???Abs. NRBC - 0.0 k/mm3 CBC w/ Differential (09/27/2022) ???WBC - 16.7 k/mm3???RBC - 3.45 m/mm3???Hgb - 8.9 Gm/dL???Hct - 28.3 %???MCV - 82.0 femtoliters???MCH - 25.8 pg???MCHC - 31.4 g/dL???Platelet Count - 464 k/mm3???RDW-SD - 50.7 femtoliters???MPV - 10.6 femtoliters???Nucleated RBC (Automated) - 0.2 #/100 WBC'S???Abs. NRBC - 0.0 k/mm3???Abs. Neut - 12.9 k/mm3???Abs. Lymph - 1.0 k/mm3???Abs. Jenkins - 1.3 k/mm3???Abs. Eo - 0.5 k/mm3???Abs. Baso - 0.2 k/mm3???Neut % - 74.0 %???Lymph % - 6.0 %???Jenkins % - 8.0 %???Eos % - 3.0 %???Baso % - 1.0 %???Myelocytes % - 3.0 %???Metamyelocyte % - 2.0 %???Band % - 3.0 %???RBC Morphology - FEW???Platelet Estimate - INCREASED Comprehensive Metabolic Panel (09/19/2022) ???Sodium - 143 mmol/L???Potassium - 4.4 mmol/L???Chloride - 109 mmol/L???Bicarbonate Level - 25 mmol/L???Anion Gap - 9???Glucose Level - 180 mg/dL???BUN - 26 mg/dL???Creatinine-Blood - 1.9 mg/dL???Estimated GFR Creatinine - 38 ML/MIN/1.73 M2???Calcium - 8.7 mg/dL???Protein, Total - 5.2 Gm/dL???Albumin - 3.3 Gm/dL???AG Ratio - 1.7???Alkaline Phosphatase - 48 units/L???AST (SGOT) - 15 units/L???ALT (SGPT) - 8 units/L???Bilirubin, Total - 0.6 mg/dL COVID-19 (2019 Novel Coronavirus) PCR (09/26/2022) ???COVID-19 PCR Specimen Source - NASAL???COVID-19 PCR Result - NEGATIVE COVID-19 (Novel Coronavirus), Rapid PCR (09/19/2022) ???COVID-19 by RT-PCR - NEGATIVE COVID-19, RSV, and Flu A/B, Rapid PCR (09/21/2022) ???Influenza A PCR - NEGATIVE???Influenza B PCR - NEGATIVE???RSV PCR - NEGATIVE???COVID-19 PCR Specimen Source - NASAL???COVID-19 PCR Result - NEGATIVE Creatinine (09/20/2022) ???Creatinine-Blood - 3.2 mg/dL???Estimated GFR Creatinine - 20 ML/MIN/1.73 M2 Electrolytes (09/20/2022) ???Sodium - 143 mmol/L???Potassium - 4.9 mmol/L???Chloride - 109 mmol/L???Bicarbonate Level - 21 mmol/L???Anion Gap - 13 FERRITIN (09/24/2022) ???Ferritin Level - 178 ng/mL Fibrinogen (09/22/2022) ???Fibrinogen - 550 mg/dL FOLIC ACID (09/24/2022) ???Folic Acid Level - 9.5 ng/mL GLUCOSE POC (09/27/2022) ???Glucose, POC - 138 mg/dL GLUCOSE POC CARTRIDGE (09/21/2022) ???Glucose (POC) POC Cartridge - 102 H + H (09/27/2022) ???Hgb - 9.6 Gm/dL???Hct - 29.5 % Haptoglobin (09/22/2022) ???Haptoglobin - 166 mg/dL HEMATOCRIT POC CARTRIDGE (09/21/2022) ???Hematocrit (POC) POC Cartridge - 22 % HEMOGLOBIN AND HEMATOCRIT (09/20/2022) ???Hgb - 7.5 Gm/dL???Hct - 24.4 % HEMOGLOBIN POC CARTRIDGE (09/21/2022) ???Hemoglobin (POC) POC Cartridge - 7.5 Gm/dL Hepatitis Panel Dial (09/21/2022) ???Hepatitis B Surface Antigen - NEGATIVE???Hepatitis C Ab - NEGATIVE???Anti-HBS Quant - 0.00 mIU/mL Hold Blue Top Tube (09/19/2022) ???Hold Blue Top - SPECIMEN DISCARDED AFTER 4 HOURS. HOLD GEL TUBE (09/27/2022) ???Hold Gel Top - SPECIMEN DISCARDED AFTER 1 WEEK HOLD LAVENDER TUBE (09/26/2022) ???Hold Lavender Top - SPECIMEN DISCARDED AFTER 24 HOURS. INR (09/19/2022) ???INR - 1.1???Protime (PT) - 11.9 seconds IRON (09/24/2022) ???Iron Level - 24 mcg/dL Lactic Acid Level (09/21/2022) ???Lactate - 1.1 mmol/L LDH (09/22/2022) ???LDH - 396 units/L Lipase (09/21/2022) ???Lipase - 85 units/L Lytes (09/28/2022) ???Sodium - 139 mmol/L???Potassium - 3.8 mmol/L???Chloride - 99 mmol/L???Bicarbonate Level - 27 mmol/L???Anion Gap - 13 Magnesium Level (09/24/2022) ???Magnesium - 2.1 mg/dL Mg Level (09/21/2022) ???Magnesium - 1.9 mg/dL MRSA PCR Nasal Swab (09/22/2022) ???MRSA PCR Result - Negative, MRSA target DNA not detected.???S Aureus PCR Result - Negative, SA target DNA not detected. O2 PERCENT (POINT OF CARE) (09/21/2022) ???FIO2 (POC) POC Cartridge - 40 % Peripheral Blood Smear Review (09/22/2022) ???Peripheral Blood Smear Review Interp. - Reviewed by pathologist. Phosphorus Level (09/24/2022) ???Phosphorus - 3.7 mg/dL POTASSIUM POC CARTRIDGE (09/21/2022) ???Potassium (POC) POC Cartridge - 4.9 mmol/L Procalcitonin Level (09/21/2022) ???Procalcitonin - 0.55 ng/mL PT (INR) (09/22/2022) ???INR - 1.2???Protime (PT) - 12.1 seconds PTH, INTACT (09/24/2022) ???PTH, Intact - 72 pg/mL RETICULOCYTE COUNT (09/23/2022) ???Retic Count - 3.5 %???Retic Count Corrected - 1.9 %???Retic Production Index - 1.0 % SODIUM POC CARTRIDGE (09/21/2022) ???Sodium (POC) POC Cartridge - 143 mmol/L Type and Screen (09/23/2022) ???Blood Type - O Positive???Antibody Screen - Negative Urinalysis Complete/Reflex Culture (09/21/2022) ? ?Appear/Color, Urine - YELLOW? ?Clarity - TURBID? ?Specific [place], Urine - >1.050? ?pH, Urine - 5.5???Albumin, Urine - 2+???Glucose, Urine - NEGATIVE???Ketones, Urine - NEGATIVE???Bilirubin, Urine - NEGATIVE???Hemoglobin, Urine - 2+???Nitrite, Urine - NEGATIVE???Leukocyte, Urine - NEGATIVE???Urobilinogen - NORMAL???WBC's, Urine - 2 /HPF???RBC's, Urine - 9 /HPF???Squamous Epith - 1 /HPF???Mucus - SLIGHT???Culture Indication - CULTURE NOT INDICATED VITAMIN B12 (09/24/2022) ???Vitamin B12 Level - 2543 pg/mL Allergies (NKA means No Known Allergies) HORSE SERUM PROTEINS AB.IGE.RAST CLASS labetalol tetanus toxoid Problems Active Problems??(22) Anxiety?? Aortic insufficiency (mild to modrate on echo 08/10)?? Arteriosclerotic heart disease (ASHD)?? Atrial fibrillation?? Atypical angina?? [facility] Reverse [employer]istics Analyst Teresa Boyd [phone]?? CAD S/P percutaneous coronary angioplasty?? Chronic kidney disease, stage 3a?? COPD without exacerbation?? CVA (cerebral vascular accident)?? Diastolic dysfunction?? Dilated aortic root/ Oct 2017?? Esophageal reflux?? Essential hypertension?? History of COPD?? Hyperlipidemia?? Major depression in partial remission?? Nephrolithiasis?? Obese class II?? Obesity?? RICKIE (obstructive sleep apnea)?? Type 2 diabetes mellitus with renal manifestations?? Education Materials Below is the list of Educational Leaflet Providered with your Discharge Instructions. Valuables and Belongings I fully understand and agree that [facility] accepts no responsibility for all my personal [...] patient Date for Pt to Sign Valuables/Belongings: 09/24/22 20:33:00 ?? Other Discharge Information ? Case Management Discharge Plan?? Discharge Plan?? Discharge Agency Information?? Discharge Level of Care at Discharge: USP facility Name of Agency #1: [facility] Discharge Transportation Arranged: [facility] [address] [facility] ??[phone] Agency Online Education Manager #1: Mode of Transportation Arranged: Ambulance Service Categories #1: Physical Therapy, [facility] Discharge Nursing Homes/Rehab Facilities: [facility] Service Comments #1: You are being discharged to [facility] in [place] for short term rehab. They are notified of your arrival today. ?? Pulmonary Rehab Status?? Pulmonary Rehab Discharge Status?? CPAP/BiPAP Mask Type: Full CPAP/BiPAP Mask Size: Medium Respiratory Rate: 20 br/min ? Common Emergency Awareness Tips IS [...] of these heart attack warning signs, call to get immediate medical attention! ?? Smoking can increase your chances of developing chronic health problems and can cause harmful effects to other family members in your house. If you smoke, you are strongly encouraged to quit. Please call [facility] [employer] [facility] at [phone] or [phone] Your Mortgage ([phone]) or log in to [email or web address] for referrals to smoking cessation programs. ?? The National Suicide Prevention Hotline is available 12/05 if you or someone you know needs to find a reason to keep living. By calling 7-317-781-[place] (7378) you'll be connected to a skilled, trained counselor at a crisis center in your area. INPATIENT DISCHARGE INSTRUCTIONS SIGNATURE PAGE ROLDAN JACINTO Location:[facility] Registration Date and Time:09/19/2022 14:51 EST Primary Care Physician: Marbella RINCON Brennan, I ROLDAN JACINTO, have received the above patient education materials/instructions and have verbalized understanding. If ambulance or transport services are being used I further acknowledge being given a choice of service. ?? If you need to contact me, please call me at this number: . 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/Arch Cushion Press Operator Name: Patient/Arch Cushion Press Operator Signature: Relationship to Patient: Witness Name/Signature: Date: * Event Display: IR End of Case Report * Geovanny Santana MD: PERFORM, TRANSCRIBE, VERIFY, VERIFY Event Display: Result: Authored Date: [id number] Patient: ROLDAN JACINTO Study Date: 09/25/2022 Performing: Geovanny Santana MD Referring: : 1950 Age: 72 Gender: MALE Pre-procedure diagnosis and Indication: CKD NEEDS DIALYSIS AT [facility] COPD CKD DM HTN CAD Exam: Prior to the procedure, the patient was seen and the nature of the procedure explained along with its attendant risks and benefits to the patient . Informed consent was obtained from, the patient . The patient underwent a pre-anesthesia assessment. On completion of this it was determined the patient is suitable for moderate sedation. The patient arrived in IR room 1 for a tunneled hemodialysis catheter insertion PROCEDURE: The patient was positioned supine and secured with arm boards. The access site was evaluated with ultrasound and images archived. The site was prepped with chloraprep and draped in the usual sterile fashion. . Local anesthetic was given and The vessel was identified using, ultrasound access was gained into the right internal jugular vein using a regular micropuncture set and catheter was tunneled, and inserted. The catheter was tested with good flow and return. No leaks were noted. The Catheter was flushed with heparin 1000u/ml 2 ml's The catheter was Secured with 0 prolene suture and and access was closed using . The sterile field was maintained throughout the procedure and patient tolerated the procedure well with no complications of the procedure A 23 cm cuff to tip dialysis cath was inserted. The cath was fixed to the skin with 0- Prolene suture. The neck incision was closed with a 4-0 Vicryl suture. No attending physician assisted with this procedure. estimated blood loss was minimal Specimens/samples: no specimens or samples were sent for this procedure Patient transferred to[address] [facility] procedure instructions sent in envelope with the patient Impression: Satisfactory ultrasound and fluoroscopically guided placement of a tunneled hemodialysis chateter patient tolerated the procedure well with no complications of the procedure Should catheter malfunction develop please contact this service directly rather than having a diagnostic study performed elsewhere. This is not necessary. Right-sided PermCath insertion without complication. Catheter tip is in the mid right atrium. Good flow was obtained. Fluoroscopy time and dose Total Fluoro Time: 2.8 mins Total dose 49 mGy Total DAP 290.7 - ?Gy/m2 No contrast was used for this procedure Signed By Geovanny Santana MD On 09/25/2022 16:33:38 Geovanny Santana MD Dictated By: Geovanny Santana MD Dictated Date/Time: 09/25/22 3:39 pm Reviewed By: Geovanny Santana MD Signed By: Geovanny Santana MD Signed Date/Time: 09/25/22 4:33 pm Transcribed By: [facility] Transcribed Date/Time: 09/25/22 4:33 pm * Event Display: Cardiac Rhythm Strips Authored Date: * Event Display: Cardiac Rhythm Strips Authored Date: * [facility] , CIS S: TRANSCRIBE Tato Luo MD S: VERIFY Reyna Prasad DO: SIGN Event Display: Result: Authored Date: CT Head-Hyper Acute Stroke REASON: Neurological deficit. Clinical Question(s): Hematoma or infarct.. TECHNIQUE: Noncontrast head CT using axial technique and reconstructed in axial and coronal planes.Weight-based protocol using automatic tube modulation was used to optimize exposure parameters. CTDIvol Body: 16.43 mGy, DLP Body: 674 mGy*cm. CTDIvol Head: 47.10 mGy, DLP Head: 772 mGy*cm. COMPARISON: Multiple prior comparison studies, most recent MRI brain 02/19/2022 FINDINGS: BRAIN and EXTRA-AXIAL SPACES: No parenchymal hemorrhage, midline shift or mass effect. Stable well demarcated region of encephalomalacia in the left occipital lobe. Stable old lacunar infarct in the left basal ganglia. No acute infarct. Negative insular ribbon sign. Intravascular contrast from earlier angiography. Moderate prominence of the ventricles and sulci consistent with parenchymal volume loss. Mild low-density white matter changes. No subarachnoid hemorrhage, subdural or epidural collections. CALVARIUM, SKULL BASE AND SOFT TISSUES: No fractures or suspicious bony lesions. The paranasal sinuses and mastoid air cells are clear. Visualized orbits and globes are intact. The extracranial soft tissues are unremarkable. IMPRESSION: No evidence of acute intracranial abnormality. I have personally reviewed the images and I agree with this report. WSN: [id number] Ordering Physician: Yury Weeks Dictated By: Reyna Prasad DO Dictated Date/Time: 09/20/22 7:25 am Reviewed By: Tato Luo MD Signed By: Tato Luo MD Signed Date/Time: 09/20/22 7:30 am Transcribed By: RAMÓN Transcribed Date/Time: 09/20/22 1:45 am * [facility] , RANJIT S: TRANSCRIBE Florence Green MD: VERIFY Event Display: Result: Authored Date: [id number] CT Angio Head Hyperacute Stroke, CT Angio Neck Hyperacute Stroke Reason: Other:; Stroke; Clinical Question(s): Other:; Hematoma Aneurysm / Other: TECHNIQUE: CT angiogram of the head and neck was performed after bolus administration of intravenous contrast. 100 mL of Omnipaque 300 was administered intravenously. Coronal and sagittal MIP reformatted images were obtained. Additional 3-D images were created on a separate workstation under concurrent supervision by the attending radiologist. All stenoses are measured using NASCET criteria. Weight-based protocol using automatic tube modulation was used to optimize exposure parameters. RADIATION DOSE PARAMETERS: CTDIvol Body: 16.43 mGy, DLP Body: 674 mGy*cm. CTDIvol Head: 47.10 mGy, DLP Head: 772 mGy*cm. COMPARISON: Noncontrast CT head performed concurrently. FINDINGS: CTA OF THE NECK: Arch: There is a three vessel aortic arch. There is mild atherosclerotic plaque of the aortic arch,but origins of the supra aortic vessels are patent. Right carotid system: The common carotid and cervical internal carotid arteries are patent. There is calcified atherosclerotic plaque at the carotid bifurcation, but no ICA stenosis (0%) by NASCET criteria. The mid ICA is tortuous. Left carotid system: The common carotid and cervical internal carotid arteries are patent. There iscalcified atherosclerotic plaque at the carotid bifurcation, but no ICA stenosis (0%) by NASCET criteria. The mid ICA is tortuous. There is a mildly right-dominant vertebral artery system. Right vertebral: Patent. Left vertebral: Patent. Other: Soft tissues and bones: No evidence of lymphadenopathy or mass. The thyroid is unremarkable. There is a small right pleural effusion. Visualized lung apices are otherwise clear. Multilevel degenerative changes of the spine are noted, without acute osseous abnormality. CTA OF THE HEAD: Anterior circulation: Calcified plaque is seen along the intracranial ICAs resulting in mild narrowing of the left supraclinoid segment. The anterior cerebral arteries are patent with hypoplastic right A1 segment and patent anterior communicating artery noted. Bilateral M1 and proximal M2 branches are patent and normal in caliber. Posterior circulation: The vertebral arteries are patent and normal in caliber. The basilar artery is patent though there is mild multifocal narrowing. The superior cerebellar arteries are patent. The posterior cerebral arteries are patent with origin of the right BACKUP SAWYER. Veins: Major dural venous sinuses are patent. Other: Soft tissues and bones: No midline shift or effacement of the basal cisterns. No space-occupying hemorrhage. There is a chronic area of encephalomalacia in the left occipital lobe. No territorial loss of godoy-white matter differentiation to suggest acute confluent lobar infarction. Orbits are unremarkable. No significant opacification in the paranasal sinuses or mastoid air cells. IMPRESSION: 1. No proximal occlusion or high grade stenosis in the major arteries of the head and neck. 2. Small right pleural effusion. A similar preliminary report was provided by [facility]. WSN: [id number] Ordering Physician: Yury Weeks Dictated By: Florence Green MD Dictated Date/Time: 09/20/22 7:54 am Reviewed By: Florence Green MD Signed By: Florence Green MD Signed Date/Time: 09/20/22 7:54 am Transcribed By: RAMÓN Transcribed Date/Time: 09/20/22 7:44 am * [facility] , CIS S: TRANSCRIBE Florence Green MD: VERIFY Event Display: Result: Authored Date: [id number] CT Angio Head Hyperacute Stroke, CT Angio Neck Hyperacute Stroke Reason: Other:; Stroke; Clinical Question(s): Other:; Hematoma Aneurysm / Other: TECHNIQUE: CT angiogram of the head and neck was performed after bolus administration of intravenous contrast. 100 mL of Omnipaque 300 was administered intravenously. Coronal and sagittal MIP reformatted images were obtained. Additional 3-D images were created on a separate workstation under concurrent supervision by the attending radiologist. All stenoses are measured using NASCET criteria. Weight-based protocol using automatic tube modulation was used to optimize exposure parameters. RADIATION DOSE PARAMETERS: CTDIvol Body: 16.43 mGy, DLP Body: 674 mGy*cm. CTDIvol Head: 47.10 mGy, DLP Head: 772 mGy*cm. COMPARISON: Noncontrast CT head performed concurrently. FINDINGS: CTA OF THE NECK: Arch: There is a three vessel aortic arch. There is mild atherosclerotic plaque of the aortic arch,but origins of the supra aortic vessels are patent. Right carotid system: The common carotid and cervical internal carotid arteries are patent. There is calcified atherosclerotic plaque at the carotid bifurcation, but no ICA stenosis (0%) by NASCET criteria. The mid ICA is tortuous. Left carotid system: The common carotid and cervical internal carotid arteries are patent. There iscalcified atherosclerotic plaque at the carotid bifurcation, but no ICA stenosis (0%) by NASCET criteria. The mid ICA is tortuous. There is a mildly right-dominant vertebral artery system. Right vertebral: Patent. Left vertebral: Patent. Other: Soft tissues and bones: No evidence of lymphadenopathy or mass. The thyroid is unremarkable. There is a small right pleural effusion. Visualized lung apices are otherwise clear. Multilevel degenerative changes of the spine are noted, without acute osseous abnormality. CTA OF THE HEAD: Anterior circulation: Calcified plaque is seen along the intracranial ICAs resulting in mild narrowing of the left supraclinoid segment. The anterior cerebral arteries are patent with hypoplastic right A1 segment and patent anterior communicating artery noted. Bilateral M1 and proximal M2 branches are patent and normal in caliber. Posterior circulation: The vertebral arteries are patent and normal in caliber. The basilar artery is patent though there is mild multifocal narrowing. The superior cerebellar arteries are patent. The posterior cerebral arteries are patent with origin of the right BACKUP SAWYER. Veins: Major dural venous sinuses are patent. Other: Soft tissues and bones: No midline shift or effacement of the basal cisterns. No space-occupying hemorrhage. There is a chronic area of encephalomalacia in the left occipital lobe. No territorial loss of godoy-white matter differentiation to suggest acute confluent lobar infarction. Orbits are unremarkable. No significant opacification in the paranasal sinuses or mastoid air cells. IMPRESSION: 1. No proximal occlusion or high grade stenosis in the major arteries of the head and neck. 2. Small right pleural effusion. A similar preliminary report was provided by [facility]. WSN: [id number] Ordering Physician: Yury Weeks Dictated By: Florence Green MD Dictated Date/Time: 09/20/22 7:54 am Reviewed By: Florence Green MD Signed By: Florence Green MD Signed Date/Time: 09/20/22 7:54 am Transcribed By: RAMÓN Transcribed Date/Time: 09/20/22 7:44 am * Event Display: HV IR Angiogram Visceral Authored Date: Peripheral Diagnostic Report Demographics Patient Name ORVILLE MONTILLA Gender Male Corporate Race Facility Room Number Height Date of 1950 Weight Age 72 year(s) Accession Number [id number] BMI Referring Physician Juan Dotson MD Date of Study 09/19/2022 Performing Physician Geovanny Santana MD Fellow Interventional Physician Geovanny Santana MD Procedure Procedure Type Peripheral Cath Diagnostic Procedure:Arteriography, Visceral Vessel Arteriography, Interventional Radiology Indications Additional Indications: retroperitoneal hematoma Clinical History Additional Clinical History:Large retroperitoneal hematoma on the right side with large hematoma surrounding the right kidney. COPD on oxygen renal insufficiency creatinine 1.9 diabetes hypertension coronary artery disease with stent Procedure Data Procedure Date Date: 09/19/2022tart: 11:34 The procedure was explained in detail to the patient. Risks, complications and alternative treatments were reviewed. Written consent was obtained. Procedure Medications - Zofran I.V. 4 mg. - Morphine I.V. 2 mg. - Lidocaine 1% w/ Sodium Bicarb S.C. Right groin 10 ml. Sedation: No intra-service moderate sedation was used for this case. Contrast Material - Omnipaque 110 ml Diagnostic Catheters - A5F USL 2 80CMwas used for: Wire support. - [id number] UF TEMPO 4 ANGIOGRAPHIC CTHETERwas used for: Wire support. - [id number] Cobra 2 GLIDECATHwas used for: Wire support. Fluoroscopy Time: Diagnostic: 6:42 minutes. Total: 6:42 minutes. Fluoroscopy Dose: Diagnostic: 1594 mGy. Total: 1594 mGy. Dose Area Product:Diagnostic: 290111 mGy/cm2. Total: 656130 mGy/cm2. Dose Area Product:Diagnostic: 17674.4 ??Gy/m2. Total: 83121.4 ??Gy/m2. Procedure Narrative PROCEDURE: Prior to procedure the patient was seen and the nature of the procedure with its attendant risks and benefits were explained to the patient who understood the issues and informed consent was obtained. The patient underwent a preanesthesia assessment. On completion of this it was determined the patient is suitable for conscious sedation. Please see separate sedation flowsheet. The patient was brought to the Angio suite and the right groin prepped and draped in the usual sterile manner. Following the injection of buffered 1% lidocaine for local anesthesia and ultrasound guided first stick single wall puncture was made of the right common femoral artery. A 5 Honduran sheath was inserted. A 5 [place]uran Sos 2 catheter was inserted, passed to the main right renal artery. Sector arteriogram was performed. She no evidence of bleeding the Incision only for scapular and abdominal aortogram performed and this showed a small accessory right renal artery arising very close the origin of the main renal artery. I demonstrated his first set of contrast arteriogram without success. No target embolization seen in the right kidney is a distorted by the known large perinephric hematoma.. Groin shot was performed to assess for Mynx closure. The origin of the superficial femoral artery is high. Precluding use of minks. The sheath was removed. Hemostasis was obtained with in excess of 20 minutes of manual compression.. The patient returned to his room in reasonable condition. Initially she tolerated the procedure well. There were no complications. There were no complications of the procedure which was well tolerated. Estimated blood loss was minimal. No physician assisted with this procedure. Specimens/samples=none. No complications. Post-op diagnosis - same as pre-op: Assessment for source of perinephric hematoma. No bleeding seen. No target embolization. Small infrarenal aortic aneurysm currently of no immediate significance. FINDINGS: Selective right major renal arteriogram. No bleeding seen. Abdominal aortogram. 2 right renal arteries. No evidence of bleeding. Small infrarenal abdominal aortic aneurysm as documented separately by CT scan. Please refer to that report for documentation of aneurysm size. Thank you for this referral. 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 Hemodynamics Condition: Rest Heart Rate: 69 bpm Shunts Oxygen Values O2 Capacity 136 Conclusions Interventional Summary 2 right renal arteries. No evidence of bleeding. Small infrarenal abdominal aortic aneurysm as documented separately by CT scan. Interventional Recommendations Orders in CIS. Signatures * Event Display: HV IR Angiogram Visceral Authored Date: Hospital Progress note * Carmen Underwood RN: PERFORM, SIGN, VERIFY Event Display: Progress Note Hospital Authored Date: [id number] Patient: ROLDAN JACINTO Age: 72 years Sex: Male : 1950 Associated Diagnoses: None Author: Carmen Underwood RN Findings Problem Related to Alteration in Genitourinary : Alteration in Genitourinary Function/new 09/28/2022 9:00 EST Alteration in Status Related to Renal failure, RF requiring hemodialysis Goals & Outcomes, Genitourinary Pt will maintain adequate function appropriate for pt, Pt will resume/maintain mental status Interventions, Assess/monitor/maintain Genitourinary status, Encourage PO fluid intake as allowed by diet, Assess/monitor dialysis access site, Reduce bleeding risk minimizing blood draws, razor use, Apply pressure to all injection sites Goals/Interventions, Genitourinary Yes Genitourinary, Problem Start 09/20/2022 10:00 Reviewed Plan with, Genitourinary Patient Patient Progression, Genitourinary Patient progressing according to plan Genitourinary, Problem Ongoing Yes . Nursing Data Genitourinary Data. : Genitourinary Data. 09/28/2022 9:00 EST Genitourinary Symptoms Oliguria Urinary catheter type External/Condom Catheter Date of Insertion 09/21/2022 WNL except . Evaluation Pt alert to self only. Returned from dialysis in good spirits. Denies any pain, discomfort, dizziness, blurry vision. AM medications given without issue. Trace edema BLE. SR on tele. Cont on 3L oxygen via N/C oxygen sats maintaining in mid- high 90s. LS dim. Oliguric, remains with [place] cath in place. Pending d/c to [facility] at this time. Pt aware. Currently resting in bed, safety precautions in place.. * Fabiana Hairston RN: PERFORM, SIGN, VERIFY Event Display: Progress Note Hospital Authored Date: Patient: ROLDAN JACINTO Age: 72 years Sex: Male : 1950 Associated Diagnoses: None Author: Fabiana Hairston RN Findings Narrative/Incidental Patient received 3.5 hours of hemodialysis treatment per MD order. During treatment 2L net was removed with -11.2% change in patient crit-line. Patient was alert and stable throughout treatment, watching television and commenting on the president mortgage [employer]. Post HD vitals include blood pressure of 141/70, pulse of 70, respirations of 26 and temperature of 98.1. . * Byron Pham MD: PERFORM, SIGN, VERIFY Event Display: Progress Note Hospital Authored Date: Patient: ROLDAN JACINTO Age: 72 years Sex: Male : 1950 Associated Diagnoses: None Author: Byron Pham MD Overnight Events & Current Issues Seen on HD this AM. Tolerating HD well. Anxious to go to rehab Review of Systems Review of Systems Respiratory negative. Cardiovascular negative. Gastrointestinal negative. Physical Examination Vitals Vitals : VITAL SIGNS SECTION 09/28/2022 4:00 EST Temperature 98.4 DegF Temperature Route Oral Pulse Rate 63 bpm Respiratory Rate 20 br/min Systolic Blood Pressure 149 mm Hg H Diastolic Blood Pressure 69 mm Hg Blood pressure sites Arm, left Pulse Pressure 80 mm Hg Oxygen Saturation 96 % Liters per Minute 2 L/min Mode of Delivery (Oxygen) Nasal cannula . General Appearance Fatigued. HEENT Moist mucous membranes. Respiratory Decreased breath sounds: at bases. Cardiac JVD absent. Abdomen/GI Soft. Extremities No edema. Neurologic Alert. Results Review General resultsToday's results : Results 09/28/2022 6:22 EST Hgb 8.5 Gm/dL L . Impression and Plan Comprehensive Plan 72-year-old man with multiple medical problems including coronary disease, hypertension, diabetes mellitus , multiple renal stones, and history of left perinephric hematoma in 2019 comes in with right-sided perinephric hematoma. Currently has Anuric renal failure. Differential diagnoses include ischemic ATN from hypoperfusion/significant hypotension. Seen on HD. Tolerating HD; CW HD TTS IR obtained permacath on 09/25/2022 -Femoral Mahurkar removed Has HD spot at [facility] - first shift - Can reach unit on and talk to Radha Shall follow up in HD unit when D/Rad CT Abdomen and Pelvis WO contrast * [facility] , CIS S: TRANSCRIBE Martin RINCON, Juma A: SIGN Benedicto RINCON, Radha: VERIFY Event Display: Result: Authored Date: CT Abdomen and Pelvis W/O Contrast Hx of Present Illness: R flank pain, patient is on Eliquis; Clinical Question(s): Calculus TECHNIQUE: Spiral CT through the abdomen and pelvis without IV contrast formatted in 3 planes. Thisstudy was performed without oral contrast. Weight- based protocol using automatic tube modulation was used to optimize exposure parameters. CTDIvol Body: 11.10 mGy, DLP Body: 582 mGy*cm. 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 Visualized Chest: Small layering right pleural effusion. Mild bibasilar atelectasis. Diaphragm: Normal. Liver: Normal. Gallbladder: Multiple tiny layering gallstones. No inflammatory changes. Bile ducts: No biliary ductal dilation. Spleen: Normal in size. Low-density focus superiorly measuring 2.0 cm with a density of 16 HU), likely cyst. Pancreas: Fatty atrophy. No focal lesion. No pancreatic ductal dilation. Adrenal glands: The right adrenal gland is not well visualized. The left adrenal gland appears unremarkable. Kidneys and ureters: The left kidney is atrophic. There are several nonobstructing calyceal calculi measuring up to 8 mm. No hydronephrosis. There is curvilinear subcapsular heterogeneous density throughout the right kidney, suggestive of asubcapsular hematoma. A punctate nonobstructing calculus is noted in the lower pole. No hydronephrosis. There is extensive perinephric hematoma on the right, extending into the retroperitoneal space of the right lower quadrant. Bladder: Underdistended but unremarkable. Reproductive organs: Unremarkable. Stomach, small bowel, and large bowel: Status post sleeve gastrectomy. Small type I hiatal hernia. The small and large bowel are normal in caliber without evidence of obstruction. Appendix: Not seen, but no evidence of appendicitis. Peritoneum and retroperitoneum: Extensive right subcapsular hematoma as described above. Large right retroperitoneal hematoma in the right lower quadrant measuring approximately 13.8 x 15.7 x 17.5 cm, as described above. No ascites or pneumoperitoneum. Lymph nodes: No enlarged lymph nodes. Blood vessels: Heavy aortic calcification with the infrarenal aorta measuring up to 28 mm in caliber and 28 mm in length. Abdominal and pelvic wall: Unremarkable. Bones: No acute abnormality. Multiple level degenerative changes of the spine. IMPRESSION: 1. Extensive right subcapsular renal and right retroperitoneal hematoma as described above. Contrast enhanced CT of the abdomen and pelvis is recommended for further assessment. No obstructing calculus or hydronephrosis. 2. Infrarenal abdominal aorta measuring up to 2.8 cm. Impression #1 was discussed via telephone by Dr. Salazar with Shelly Martinez MD on 09/19/2022 10:00 AM with understanding voiced back. I have personally reviewed the images and I agree with this report. WSN: [id number] Ordering Physician: Shelly Martinez Dictated By: Juma Salazar MD Dictated Date/Time: 09/19/22 11:04 a Reviewed By: Radha Diane MD Signed By: Radha Diane MD Signed Date/Time: 09/19/22 11:09 am Transcribed By: RAMÓN Transcribed Date/Time: 09/19/22 11:[address] Abdomen and Pelvis W contrast IV * [facility] , CIS S: TRANSCRIBE Juma Salazar MD A: SIGN Radha Diane MD: VERIFY Event Display: Result: Authored Date: CT Abd/Pelvis W/ IV Contrast Only Hx of Present Illness: R flank pain with nausea this am; Reason: Other:; LLQ abdominal pain; Clinical Question(s): Other:; Special Instructions: add delayed phase; Order Comment: TECHNIQUE: Spiral CT through the abdomen and pelvis with IV contrast formatted in 3 planes. 100 cc of Omnipaque 300 was administered intravenously. Additional images during the pyelographic phase were also obtained. This study was performed without oral contrast. Weight-based protocol using automatic tube modulation was used to optimize exposure parameters. CTDIvol Body: 21.85 mGy, DLP Body: 2442 mGy*cm. COMPARISON: Noncontrast CT performed earlier today at 9:21 AM. FINDINGS: Upscale Security Officer View Findings, Lines and Tubes: None. Visualized Chest: 4 mm nodule in the middle lobe (axial 7). Small layering right pleural effusion. Mild bibasilar atelectasis. The heart is normal in size. No pericardial effusion. Diaphragm: Normal. Liver: Normal. Gallbladder: Numerous tiny layering gallstones. No inflammatory changes. Bile ducts: No biliary ductal dilation. Spleen: Nonenlarged. 1.8 cm cystic focus superiorly (axial 18). Pancreas: Fatty atrophy. No focal lesion. No pancreatic ductal dilation. Adrenal glands: The right adrenal gland is not well visualized. The left adrenal gland is normal. Kidneys and ureters: * Atrophic left kidney with multiple small cystic foci preserved enhancement. Nonobstructing calculi measuring up to 7 mm. No hydronephrosis. * The left kidney is also markedly atrophic. There is a large subcapsular hematoma throughout the lateral aspect of the right kidney measuring up to 4.8 cm. There is heterogeneous hyperdensity withinthe hematoma, suggestive of blood clot. There is a focus of active extravasation posteriorly (axial52). There is significant mass effect on the renal parenchyma. Blood products are also present in the right perinephric space. Scattered cystic foci are present within the compressed right kidney. A 2 mm nonobstructing calculus is noted in the lower pole. No hydronephrosis. No evidence of excreted contrast on the pyelographic phase, although this might be due to early timing. Bladder: Underdistended, but unremarkable. Reproductive organs: Unremarkable. Stomach, small bowel, and large bowel: The distal esophagus is fluid filled. Small type I hiatal hernia. Status post sleeve gastrectomy. The small and large bowel are normal in caliber without evidence of obstruction. Appendix: Normal. Peritoneum and retroperitoneum: Large right retroperitoneal hematoma measuring approximately 13.1 x 13.7 x 17.2 cm, with evidence of contrast extravasation (axial 84) and mass effect. Blood products are tracking through the retroperitoneal fat. No ascites or pneumoperitoneum. Lymph nodes: No enlarged lymph nodes. Blood vessels: Severe atherosclerotic vascular calcification. The infrarenal aorta measures up to 2.8 cm. No evidence of venous thrombosis. The IVC is collapsed. Abdominal and pelvic wall: Unremarkable. Bones: No acute abnormality. IMPRESSION: 1. Large right subcapsular renal and right retroperitoneal hematoma, with evidence of active extravasation. 2. Infrarenal aorta measuring up to 2.8 cm. Results were discussed via telephone by Dr. Salazar with Shelly Martinez MD on 09/19/2022 10:30 AM with understanding voiced back. I have personally reviewed the images and I agree with this report. WSN: [id number] Ordering Physician: Shelly Martinez Dictated By: Juma Salazar MD Dictated Date/Time: 09/19/22 11:14 a Reviewed By: Radha Diane MD Signed By: Radha Diane MD Signed Date/Time: 09/19/22 11:19 am Transcribed By: RAMÓN Transcribed Date/Time: 09/19/22 10:50 am Portable XR Chest Views * [facility] , CIS S: TRANSCRIBE Florence Green MD: VERIFY Event Display: Result: Authored Date: [id number] Chest Portable CLINICAL INDICATION: Wheezing. COMPARISON: Chest x-ray, 09/21/2022 per FINDINGS: The cardiac silhouette is within normal limits. Mediastinal and hilar contours are normal. There are low lung volumes with mild bibasilar atelectasis, right greater than left. There is no significant pleural fluid. No pneumothorax or CHF noted No acute osseous abnormality is noted. IMPRESSION: Low lung volumes with mild bibasilar atelectasis, right greater than left. WSN: [id number] Ordering Physician: Masoud Carlin Dictated By: Florence Green MD Dictated Date/Time: 09/23/22 12:56 p Reviewed By: Florence Green MD Signed By: Florence Green MD Signed Date/Time: 09/23/22 12:56 pm Transcribed By: CSB Transcribed Date/Time: 09/23/22 12:55 pm * Davon , CIS S: Osmani Martin MD: VERIFY Event Display: Result: Authored Date: [id number] Chest Portable Reason: Fever; Clinical Question(s): Pneumonia COMPARISON: 09/20/2022. FINDINGS: LINES AND TUBES: None. LUNGS AND PLEURA: Low lung volumes with mild basilar atelectasis. Lungs are otherwise clear with no consolidation. No pleural effusion. No pneumothorax. HEART, MEDIASTINUM AND LEI: Heart is normal in size. Aorta is mildly calcified. BONES AND SOFT TISSUES: No acute abnormality. IMPRESSION: No acute abnormality. WSN: [id number] Ordering Physician: Rocío Moran Dictated By: Osmani Villalobos MD Dictated Date/Time: 09/21/22 9:32 pm Reviewed By: Osmani Villalobos MD Signed By: Osmani Villalobos MD Signed Date/Time: 09/21/22 9:32 pm Transcribed By: RAMÓN Transcribed Date/Time: 09/21/22 9:28 pm * [facility] , CIS S: TRANSCRIRodrigo Gavin MD: VERIFY Event Display: Result: Authored Date: [id number] Chest Portable Reason: Shortness of Breath; Clinical Question(s): CHF COMPARISON: 08/18/2022 FINDINGS: LINES AND TUBES: None. LUNGS AND PLEURA: Low lung volumes with mild basilar atelectasis. Lungs are otherwise clear with no consolidation. No pleural effusion. No pneumothorax. HEART, MEDIASTINUM AND LEI: Heart is normal in size. Normal mediastinal and hilar contour. BONES AND SOFT TISSUES: No acute abnormality. IMPRESSION: No acute abnormality. WSN: [id number] Ordering Physician: Eliot Schuster Dictated By: Rodrigo Feliz MD Dictated Date/Time: 09/20/22 10:07 p Reviewed By: Rodrigo Feliz MD Signed By: Rodrigo Feliz MD Signed Date/Time: 09/20/22 10:07 pm Transcribed By: CSLazaro Transcribed Date/Time: 09/20/22 10:06 pm CTA Abdominal vessels and Pelvis vessels W contrast IV * [facility] , CIS S: TRANSCRIBE Rodrigo Feliz MD: VERIFY Osmar CARBALLO Reyna: SIGN Event Display: Result: Authored Date: [id number] CT Angio Abdomen and Pelvis INDICATION: Reason: Right sided retroperitoneal hematoma; Clinical Question(s): Hemorrhage COMPARISON: CT abdomen/pelvis 09/19/2022 TECHNIQUE: Unenhanced axial images were obtained from diaphragm through the pelvis before, during (arterial) and after (portal venous) the intravenous administration of iodinated contrast. 100 cc of Omnipaque 300 was administered intravenously. Sagittal and coronal maximum intensity projection (MIP) images were reconstructed and rendered in both arterial and venous phases. Weight-based protocol using automatic tube modulation was used to optimize exposure parameters. RADIATION DOSE PARAMETERS: CTDIvol Body: 17.10 mGy, DLP Body: 2897 mGy*cm. VASCULAR FINDINGS: No evidence of active GI bleeding. Abdominal aorta: Severe atherosclerotic vascular calcification of the abdominal aorta and its branching arteries. Redemonstration of a borderline infrarenal abdominal aortic aneurysm measuring up to 2.8 cm. Celiac axis: Patent. Superior mesenteric artery: Patent. Right renal artery: Patent. Left renal artery: Patent. Inferior mesenteric artery: Patent. Right common iliac artery: Patent. Right internal iliac artery: Patent. Right external iliac artery: Patent. Right common femoral artery: Patent. Visualized right superficial and deep femoral arteries: Patent. Left common iliac artery: Patent. Left internal iliac artery: Patent. Left external iliac artery: Patent. Left common femoral artery: Patent. Visualized left superficial and deep femoral arteries: Patent. IVC and hepatic veins: Marked flattening of the proximal to mid IVC likely from marked hypovolemia.IVC veins appear patent. Portal vein: Patent. Splenic vein: Patent. Inferior mesenteric vein: Patent. Iliac and femoral veins: Patent. NONVASCULAR FINDINGS: Visualized Chest: Unchanged 4 mm right middle lobe pulmonary nodule seen on 09/19/2022. Symmetrically increased moderate right pleural effusion and small left pleural effusion with bibasilar atelectasis. The heart is normal in size. No pericardial effusion. Diaphragm: Normal. Liver: Normal. Gallbladder: Filled with contrast limiting visualization of known gallstones. No evidence of acute cholecystitis. Bile ducts: No biliary ductal dilation. Spleen: A 1.8 cm cystic lesion, unchanged. Pancreas: Mild fatty atrophy. Adrenal glands: Normal. Kidneys and ureters: Similar size of a large right subscapular hematoma measuring up to 4.7 cm (series 401 image 55). No evidence of active contrast extravasation. Unchanged bilateral atrophic appearance of the kidneys with bilateral nonobstructing renal calculi measuring up to 7 mm. Unchanged scattered cystic foci in the bilateral kidneys. Bladder: Urinary bladder is mildly distended with evidence of probable bladder wall trabeculation and/or small bladder wall diverticulum on delayed imaging. Reproductive organs: Unremarkable. Stomach, small bowel, and large bowel: Normal. Peritoneum and retroperitoneum: Slightly decreased size of a large right retroperitoneal hematoma measuring approximately 12.0 x 10.2 x 16.7 cm, previously 13.1 x 13.7 x 17.2 cm. No evidence of active contrast extravasation. New small volume of mixed density fluid is seen surrounding the liver, spleen, and extending along the dependent left paracolic gutter to layer along the left lower abdominal/pelvic lugo. Lymph nodes: No enlarged lymph nodes. Abdominal and pelvic wall: Mild diffuse anasarca is seen scattered throughout the abdominal wall and ventral pelvic wall subcutaneous soft tissues. Bones: No acute abnormality. IMPRESSION: No evidence of active contrast extravasation. New small volume of mixed density fluid likely representing layering blood products are seen in theperihepatic, perisplenic, and left paracolic gutter regions. Unchanged large right subscapular hematoma measuring up to 4.7 cm. Slightly decreased large right retroperitoneal hematoma measuring 12.0 x 10.2 x 16.7 cm. Significantly flattened proximal to mid IVC likely due to hypovolemia. New mild diffuse anasarca of the abdominal and ventral pelvic lugo and increasing small to moderate, right greater than left pleural effusions. Findings are likely due to fluid resuscitation and third spacing. Dr. eRyna Prasad discussed the above findings with covering provider Dr. Ne Figueroa via [facility] 09/21/2022 at 12:09 AM. I have personally reviewed the images and I agree with this report. WSN: [id number] Ordering Physician: Eliot Schuster Dictated By: Reyna Prasad DO Dictated Date/Time: 09/21/22 0:29 am Reviewed By: Rodrigo Feliz MD Signed By: Rodrigo Feliz MD Signed Date/Time: 09/21/22 0:34 am Transcribed By: RAMÓN Transcribed Date/Time: 09/21/22 0:27 am Patient Care team information Care Team Personnel Name: Nayeli Fernandez RN Position: [facility] RN Member Role: Primary Care Nurse Name: Ammon Montesinos RN Position: [facility] RN Member Role: Primary Care Nurse Name: Erin Pendleton RN Position: [facility] RN Member Role: Primary Care Nurse Name: Ruby Hernández RN Position: [facility] RN Member Role: Primary Care Nurse Name: Luciano Hernandez MD Position: [facility] Renal MD Member Role: [employer] Consulting Physician Address: Address: [address] [facility], [place] [address]- Name: Brennan Tyson MD Position: [facility] Primary Care Physician Member Role: PCP Address: Address: [address] [place] [address]- Name: Roxy Akers RN Position: [facility] RN Member Role: Primary Care Nurse Name: Flores Freeman RN Position: [facility] RN Member Role: Primary Care Nurse Name: Fabiana Hairston RN Position: [facility] RN Member Role: Primary Care Nurse Name: Marshal CRABTREE Attending Position: [facility] ED Medicine MD Name: Mariela Freire RN Position: [facility] ED RN W/OE and Tasks Member Role: Patient Care Provider Name: Shelly Martinez MD Position: [facility] Resident Member Role: Chart Review Address: Address: [address] [place] [address] [place] [address]- [place] Name: Sanju Lundberg Position: [facility] ED OA Charge Member Role: ED Associate Name: Roro Infante Position: S ED TA [facility] Member Role: Patient Care Provider Care Team Related Persons Name: PRABHAKAR JACINTO Address: [address] [place] [address] Name: RUBY JACINTO Name: JOSE SHAW Address: [place] [address] Name: ANUM DUBOSE Address: home [address] [place] [address]
--- OUTSIDE RECORDS SUMMARY | 2023-08-20 10:46 | XMS_ITS | Continuity of Care Document ---
Author Name Unknown Organization [facility] Adult Address [address] [place] [address]- Care Team Providers Care Marketing Intelligence Manager Name Role Phone Marbella RINCON, Brennan Primary Care Physician [facility]/27/20 - 12/27/20 [facility] [address] [place] [address]- Allergies, Adverse Reactions, Alerts Substance Reaction Severity [...] acel(Tdap) 10/20/13 Given 1Result Comment: [08/12/2018] [facility] [id number] 2Result Comment: [08/12/2018] [facility] [id number] Medications Advair Diskus 500 mcg-50 mcg inhalation powder 1 puffs, Inhalation, 2 times a day, # 180 each, 0 Refills, Maintenance, Powder Start Date: 10/23/12 Status: Ordered amLODIPine 10 mg oral tablet 10 mg, 1, tablet, By Mouth, Daily, # 90 tablet, Refills 3, Tot. Refills 3, Maintenance, 06/02/20 13:26:00 EDT, Route to Pharmacy Electronically, [facility]/pharmacy #1157, 167.6, cm, 03/27/20 8:14:00 EDT, [...] 06/17/19 6:49:21 EDT, Route to Pharmacy Electronically, [id number], [facility]/pharmacy #1157 Start Date: 06/17/19 Status: Ordered [...] tablet, 5 Refills, Maintenance, 12/25/20 9:10:00 EST, [facility] STORE 68121, 167.6, cm, 11/28/20 10:41:00 EST, Height, 90.7, kg, 09/08/19 8:17:00 EST, Dry Weight Start Date: 12/25/20 Status: Ordered fenofibrate 160 mg oral tablet 0.5 tablet, By Mouth, Daily, # 45 tablet, 1 Refills, Maintenance, 11/27/20 14:33:00 EST, [facility]/pharmacy #1157, 167.6, cm, 10/25/20 13:12:00 EST, Height, 90.7, kg, 09/08/19 8:17:00 EST, Dry Weight Start Date: 11/27/20 Status: Ordered hydrochlorothiazide 12.5 mg oral tablet See Instructions, 2 tabs po qAm and 1 tab qPM, # 90 each, 5 Refills, Maintenance, 08/14/20 16:03:00EDT, [facility]/pharmacy #1157, dose increase, 167.6, cm, 03/27/20 [...] 06/02/20 13:26:00 EDT, Route to Pharmacy Electronically, [facility]/pharmacy #1157, 167.6, cm, 03/27/20 8:14:00 EDT,Height, 90.7, kg, 09/08/19 8:17:00 EST, Dry Weight Start Date: 06/02/20 Status: Ordered LORazepam 0.5 mg oral tablet 1 tablet = 0.5 mg, By Mouth, Daily, PRN as needed for anxiety, for 30 days, # 30 tablet, 2 Refills,Acute 02/26/21 11:08:00 EDT, 11/28/20 11:08:00 EST, Tablet, [facility]/pharmacy #1157, 167.6, cm, 11/28/2109:41:00 EST, Height, [...] 0 Refills, Soft Stop, 11/07/20 4:07:00 EST, [facility]/pharmacy #1157, 167.6, cm, 10/25/20 13:12:00 EST, [...] tablet, 11 Refills, Maintenance, 08/31/20 11:42:00 EST, [facility]/pharmacy #1157, 167.6, cm, 03/27/20 8:14:00 EDT, [...] 1 Refills, Maintenance, 12/22/20 12:40:00 EST, Tablet, [facility]/pharmacy #1157, 167.6, cm, 11/28/20 10:41:00 EST, Height, 90.7, kg, 09/08/19 8:17:00 EST, Dry Weight Start Date: 12/22/20 Stop Date: 06/20/21 Status: Ordered sertraline 100 mg oral tablet 1.5 tablet = 150 mg, By Mouth, Daily, # 45 tablet, 11 Refills, Maintenance, 11/28/20 11:02:00 EST, Tablet, [facility]/pharmacy #1157, dose increase, 167.6, cm, 11/28/20 10:41:00 EST, Height, 90.7, kg, 09/08/19 8:17:00 EST, Dry Weight Start Date: 11/28/20 Stop Date: 11/23/21 Status: Ordered tamsulosin 0.4 mg oral capsule 0.4 mg, 1, capsule, By Mouth, Daily, 30 minutes after the same meal, # 90 capsule, Refills 3, Tot. Refills 3, Maintenance, 10/25/20 7:20:00 EST, Route to Pharmacy Electronically, [facility]/pharmacy #1157, 167.6, cm, 03/27/20 8:14:00 EDT, [...]
--- OUTSIDE RECORDS SUMMARY | 2023-08-20 10:46 | XMS_ITS | Continuity of Care Document ---
Author Name Unknown Organization [facility] ter Address [address] [place] [address]- Care Team Providers Care Sponge Fisherman Name Role Phone Brennan Tyson MD Primary Care Physician [phone] [facility] 08[facility]22 - 08/20/[address] [address] Encounter Diagnosis Dyspnea(Final) - 08/18/22 Discharge Disposition: A-D/C Home Attending Physician: Marta Neumann MD Admitting Physician: Marcie Gillette MD Referring Physician: Not on Staff, Referring [...] acel(Tdap) 10/20/13 Given 1Result Comment: [08/12/2018] [facility] [id number] 2Result Comment: [08/12/2018] [facility] [id number] Medications Advair Diskus 500 mcg-50 mcg inhalation powder 1 puffs, Inhalation, 2 times a day, 0 Refills, Maintenance, 10/23/12 12:03:02 EST, Powder Start Date: 10/23/12 Status: Ordered amLODIPine 10 mg oral tablet 1 tablet, By Mouth, Daily, # 90 tablet, 1 Refills, Maintenance, 08/02/22 15:32:00 EDT, [facility]90, 167.6, cm, 07/08/22 10:30:00 EDT, Height Start Date: 08/02/22 Status: Ordered aspirin 81 mg oral delayed release tablet 81 mg, 1, tablet, By Mouth, Daily, Refills 0, Maintenance, 12/27/18 10:46:04 EDT Start Date: 12/27/18 Status: Ordered atorvastatin 40 mg oral tablet 1 tablet, By Mouth, Daily, # 90 tablet, 1 Refills, Maintenance, 07/08/22 0:13:00 EDT, [facility] 32121, 167.6, cm, 06/18/22 14:40:00 EDT, Height Start Date: 07/08/22 Status: Ordered carvedilol 25 mg oral tablet 1, tablet, By Mouth, 2 times a day, # 180 tablet, Refills 3, Route to Pharmacy Electronically, [facility] 89757, 167.6, cm, 11/21/21 9:53:00 EST, Height Start [...] EDT, Compound Start Date: 04/05/19 Status: Ordered doxycycline hyclate 100 mg oral capsule = 100 mg, By Mouth, Every 12 hours, for 4 days, # 8 each, 0 Refills, Acute 08/24/22 15:28:00 EDT, 08/20/22 15:28:00 EDT, Capsule, [facility], Partial fill upon patient request if the prescription is for a schedule II opioid drug., 168, c... Start Date: 08/20/22 Stop Date: 08/24/22 Status: Ordered duloxetine 30 mg oral enteric coated capsule 1 capsule = 30 mg, By Mouth, Daily, to be combined with 60mg capsule at time of next refill for total daily dose of 90mg, # 30 capsule, 11 Refills, Maintenance, 07/08/22 10:56:00 EDT, [facility]/pharmacy #1157, Partial fill upon [...] a day, # 180 tablet, 5 Refills, [facility] STORE 40941, 167.6, cm, 11/21/21 9:53:00 EST, Height Start Date: 02/05/22 Status: Ordered fenofibrate 160 mg oral tablet 0.5 tablet, By Mouth, Daily, # 45 tablet, 4 Refills, [facility] 18389, 167.6, cm, 04/01/22 8:47:00 EDT, Height Start Date: 06/07/22 Status: Ordered fluticasone 50 mcg/inh nasal spray 2 sprays, Nares, Both, Daily, Maintenance, 08/18/22 17:16:00 EDT, [place], Partial fill upon patient request if the [...] opioid drug. Start Date: 08/18/22 Status: Ordered montelukast 10 mg oral tablet [...] Start Date: 11/04/18 Status: Ordered Potassium Chloride (Pug-Qcqb-Vcc 10) 10 mEq oral tablet, extended release 1 tablet, By Mouth, Daily, # 90 tablet, 3 Refills, [facility] 75825, 167.6, cm, 06/06/21 9:25:00 EDT, Height, 90.7, kg, 09/08/19 8:17:00 EST, Dry Weight Start Date: 08/20/21 Status: Ordered rOPINIRole 1 mg oral tablet [...] Details, Route to Pharmacy Electronically, [facility], 167.6, cm, 02/22/22 7:57:00 EDT, Height Start [...] Exam Date Time Procedure Performing Provider Status 08/18/22 2:54 PM Chest 2 Views Frontal and Lat Bein , Obdulia; Auth (Verified) Notes: (Chest 2 Views Frontal and Lat) Reason For Exam: Chest Pain;Other: RESULT: Chest 2 Views Frontal and Lat AP and lateral chest x-ray dated August 18, 2022. Comparison films are from April 20, 2019. HISTORY: Chest pain. FINDINGS: The cardiac silhouette is within normal limits for size. Hilar and mediastinal structuresare unremarkable. Minimal elevation of left diaphragm is stable. No airspace consolidation or pleural effusion is appreciated. Degenerative changes are noted in the spine and shoulders. IMPRESSION: No evidence of acute pulmonary disease. No significant interval change. Examination 27986. Thank you for allowing me to participate in the care of this patient. WSN: [id number] Ordering Physician: Daniela Burnett Dictated By: Mario Pandey MD Dictated Date/Time: 08/18/22 3:04 pm Reviewed By: Mario Pandey MD Signed By: Mario Pandey MD Signed Date/Time: 08/18/22 3:04 pm Transcribed By: RAMÓN Transcribed Date/Time: 08/18/22 3:04 pm Vital Signs Most recent to oldest [Reference Range]: 1 2 3 Height 168 cm (08/20/22 2:24 PM) 168 cm (08/20/22 7:49 AM) 168 cm (08/19/22 4:34 AM) Weight 82.9 kg (08/20/22 1:00 AM) 95.7 kg (08/18/22 10:55 PM) 95 kg (08/18/22 6:08 PM) Oxygen Saturation [94-100 %] 95 % (08/20/22 2:24 PM) 98 % (08/20/22 7:49 AM) 95 % (08/20/22 1:00 AM) Pulse Rate [55-90 bpm] 79 bpm (08/20/22 2:24 PM) 59 bpm (08/20/22 7:49 AM) 60 bpm (08/20/22 1:00 AM) Body Mass Index [18.5-24.99 kg/m2] 33.91 kg/m2 *>HHI* (08/18/22 10:55 PM) 33.66 kg/m2 *>HHI* (08/18/22 6:08 PM) 33.66 kg/m2 *>HHI* (08/18/22 5:12 PM) Blood Pressure [90-138/55-84 mm Hg] 130/64mm Hg (08/20/22 2:24 PM) 174/79mm Hg *H* (08/20/22 7:49 AM) 164/68mm Hg *H* (08/20/22 1:00 AM) Respiratory Rate [16-30 br/min] 18 br/min (08/20/22 1:00 AM) 18 br/min (08/19/22 7:00 PM) 18 br/min (08/19/22 2:00 PM) Temperature [96.8-100.4 DegF] 98.5 DegF (08/20/22 2:24 PM) 97.6 DegF (08/20/22 7:49 AM) 97.7 DegF (08/20/22 1:00 AM) Liters per Minute 2 L/min (08/20/22 2:24 PM) 2 L/min (08/20/22 7:49 AM) 2 L/min (08/20/22 1:00 AM) Mode of Delivery (Oxygen) Nasal cannula (08/20/22 2:24 PM) Nasal cannula (08/20/22 7:49 AM) Nasal cannula (08/20/22 1:00 AM) Blood pressure sites Arm, left (08/20/22 2:24 PM) Arm, right (08/20/22 7:49 AM) Arm, left (08/20/22 1:00 AM) Temperature Route Oral (08/20/22 2:24 PM) Oral (08/20/22 7:49 AM) Oral (08/20/22 1:00 AM) Dry Weight 95.7 kg (08/18/22 10:55 PM) 95 kg (08/18/22 6:08 PM) 95 kg (08/18/22 5:12 PM) Weight Obtained Via Bed scale (08/20/22 1:00 AM) Bed scale (08/18/22 10:55 PM) Patient/family stated (08/18/22 1:24 PM) Dry Weight Obtained Via Bed scale (08/18/22 10:55 PM) Patient/family stated (08/18/22 1:24 PM) Social History Social History Type Response Smoking Status Former smoker; Type: Cigarettes; Other: quit 2006; entered on: 09/19/17 Sex Note * BHSPowerscribe , CIS S: TRANSCRIBE Mario Pandey MD: VERIFY Event Display: Result: Authored Date: [id number] AP and lateral chest x-ray dated August 18, 2022. Comparison films are from April 20, 2019. HISTORY: Chest pain. FINDINGS: The cardiac silhouette is within normal limits for size. Hilar and mediastinal structuresare unremarkable. Minimal elevation of left diaphragm is stable. No airspace consolidation or pleural effusion is appreciated. Degenerative changes are noted in the spine and shoulders. IMPRESSION: No evidence of acute pulmonary disease. No significant interval change. Examination 60336. Thank you for allowing me to participate in the care of this patient. WSN: [id number] Ordering Physician: Daniela Burnett Dictated By: Mario Pandey MD Dictated Date/Time: 08/18/22 3:04 pm Reviewed By: Mario Pandey MD Signed By: Mario Pandey MD Signed Date/Time: 08/18/22 3:04 pm Transcribed By: RAMÓN Transcribed Date/Time: 08/18/22 3:04 pm Patient Care team information Personnel Name: Brennan Tyson MD Address: Address: [address], [place] [address]
--- OUTSIDE RECORDS SUMMARY | 2023-08-20 10:47 | XMS_ITS | Continuity of Care Document ---
Author Name Unknown Organization [facility] Adult Address Unknown Care Team Providers Care Director Of Mobile Marketing Name Role Phone Brennan Tyson MD Primary Care Physician [place] [facility] [place] - 03/21/22 [facility] Allergies, Adverse Reactions, Alerts Substance [...] acel(Tdap) 10/20/13 Given 1Result Comment: [08/12/2018] [facility] [id number] 2Result Comment: [08/12/2018] [facility] [id number] Medications Advair Diskus 500 mcg-50 mcg inhalation powder 1 puffs, Inhalation, 2 times a day, # 180 each, 0 Refills, Maintenance, Powder Start Date: 10/23/12 Status: Ordered amLODIPine 10 mg oral tablet 10 mg, 1, tablet, By Mouth, Daily, # 90 tablet, Refills 3, Tot. Refills 3, Maintenance, 08/26/21 13:26:00 EST, Route to Pharmacy Electronically, [facility]/pharmacy #1157, 167.6, cm, 05/07/21 16:16:00 EDT, Height, 90.7, kg, 09/08/19 8:17:00 EST, Dry Weight Start Date: 08/26/21 Status: Ordered aspirin 81 mg oral delayed release tablet 81 mg, 1, tablet, By Mouth, Daily, # 30 tablet, Refills 0, Maintenance, 12/27/18 10:46:04 EDT Start Date: 12/27/18 Status: Ordered atorvastatin 40 mg oral tablet 1 tablet, By Mouth, Daily, # 90 tablet, 1 Refills, [facility] STORE 78117, 167.6, cm, 11/21/21 9:53:00 EST, Height Start Date: 02/05/22 Status: Ordered carvedilol 25 mg oral tablet 1, tablet, By Mouth, 2 times a day, # 180 tablet, Refills 3, Route to Pharmacy Electronically, [facility] STORE 72556, 167.6, cm, 11/21/21 9:53:00 EST, Height Start [...] a day, # 180 tablet, 5 Refills, [facility] 74959, 167.6, cm, 11/21/21 9:53:00 EST, Height Start Date: 02/05/22 Status: Ordered fenofibrate 160 mg oral tablet 0.5 tablet, By Mouth, Daily, # 45 tablet, 3 Refills, Maintenance, 05/28/21 7:19:00 EDT, [facility]/pharmacy #1157, 167.6, cm, 05/07/21 16:16:00 EDT, [...] tablet, Refills 1, Route to Pharmacy Electronically, [facility] 41325, 167.6, cm, 11/21/21 9:53:00 EST, Height Start [...] Start Date: 11/04/18 Status: Ordered Potassium Chloride (Vcw-Fbsi-Mpm 10) 10 mEq oral tablet, extended release 1 tablet, By Mouth, Daily, # 90 tablet, 3 Refills, [facility] 18734, 167.6, cm, 06/06/21 9:25:00 EDT, Height, 90.7, [...] tablet, 1 Refills, Maintenance, 08/29/21 11:45:00 EST, [facility]/pharmacy #1157, 167.6, cm, 06/06/21 9:25:00 EDT, [...] tablet, 3 Refills, Maintenance, 228:32:00 EDT, Tablet, [facility]/pharmacy #1157, dose increase, 167.6, cm, 02/22/22 7:57:00 EDT, Height Start Date: 02/22/22 Stop Date: 02/17/23 Status: Ordered tamsulosin 0.4 mg oral capsule See Instructions, TAKE 1 CAPSULE BY MOUTH DAILY 30 MINUTES AFTER THE SAME MEAL, # 90 capsule, Refills 1, Instructions Replace Required Details, Route to Pharmacy Electronically, [facility] STORE 96085, 167.6, cm, 02/22/22 7:57:00 EDT, Height Start [...]
--- OUTSIDE RECORDS SUMMARY | 2023-08-20 10:47 | XMS_ITS | Continuity of Care Document ---
Author Name Unknown Organization [facility] Adult Address [address] [place] [address]- Care Team Providers Care Assurance Engineer Name Role Phone Brennan Tyson MD Primary Care Physician [facility] Date[facility]s): 07/09/23 - 08/08/[address] [facility] [address] [place] [address]- Allergies, Adverse Reactions, Alerts Substance Reaction Severity Status labetalol Active tetanus toxoid Active HORSE SERUM PROTEINS AB.IGE.RAST CLASS Active Immunizations Given and Recorded Vaccine Date Status Refusal Reason [id number] bivalent booster vax 07/21/23 Recorded influenza virus [...] Comment: [08/12/2018] [facility] [id number] 2Result Comment: [08/12/2018] [facility] [id number] Medications Advair Diskus 500 mcg-50 mcg inhalation [...] 10:47:00 EDT, Route to Pharmacy Electronically, [facility], Partial fill upon patient request if the prescription is for a schedule II opioi... Start Date: 03/27/23 Status: Ordered atorvastatin 40 mg oral tablet 1 tablet, By Mouth, Daily, # 90 tablet, 1 Refills, Maintenance, 07/10/23 18:32:00 EDT, [facility] 16682, 167.6, cm, 07/02/23 13:44:00 EDT, Height, 85, kg, 01/15/23 14:55:00 EDT, Dry Weight Start Date: 07/10/23 Status: Ordered bumetanide 1 mg oral tablet 2 mg, 2, tablet, By Mouth, Daily, # 180 tablet, Refills 1, Maintenance, 07/02/23 15:49:00 EDT, Route to Pharmacy Electronically, [facility] 03826, 167.6, cm, 07/02/23 13:44:00 EDT, Height, 85, kg, 01/15/23 14:55:00 EDT, Dry Weight Start Date: 07/02/23 Status: Ordered carvedilol 25 mg oral tablet 1, tablet, By Mouth, 2 times a day, # 180 tablet, Refills 3, Maintenance, 02/26/23 16:11:00 EDT, Route to Pharmacy Electronically, [facility] 33820, 165, cm, 02/21/23 9:40:00 EDT, Height, 85, kg, 01/15/23 14:55:00 EDT, Dry Weight Start Date: 02/26/23 Status: Ordered duloxetine 30 mg oral enteric coated capsule See Instructions, 1 capsule daily for 2 weeks and then 1 capsule every other day for 2 weeks and then stop., # 21 capsule, 0 Refills, Maintenance, 07/09/23 15:44:00 EDT, [facility]/pharmacy #1157, Partial fill upon patient request if the prescription is for... Start Date: 07/09/23 Status: Ordered duloxetine 60 mg oral enteric coated capsule 1 capsule, By Mouth, Daily, # 90 capsule, 3 Refills, Maintenance, 07/02/23 15:49:00 EDT, [facility] 05103, 167.6, cm, 07/02/23 13:44:00 EDT, Height, 85, kg, 01/15/23 14:55:00 EDT, Dry Weight Start Date: 07/02/23 Status: Ordered fenofibrate 160 mg oral tablet 0.5 tablet, By Mouth, Daily, # 45 tablet, 0 Refills, Maintenance, 06/10/23 0:49:00 EDT, [facility] 99982, 167.6, cm, 04/11/23 8:40:00 EDT, Height, 85, kg, 01/15/23 14:55:00 EDT, Dry Weight Start Date: 06/10/23 Status: Ordered fluticasone 50 mcg/inh nasal spray 2 sprays, Nares, Both, Daily, Maintenance, 08/18/22 17:16:00 EDT, [place], Partial fill upon patient request if the [...] 30 tablet, 1 Refills, Maintenance,02/21/23 10:02:00 EDT, [facility]/pharmacy #1157, Partial fill upon patient request if [...] Refills, Maintenance, 06/19/23 16:44:00 EDT, [facility], 167.6, cm, 04/11/23 8:40:00 EDT, Height, 85, [...] kg... Start Date: 10/18/22 Status: Ordered Pen [place], 31 G x 5 mm BD Ultra [...] 03/27/23 10:46:00 EDT, Route to Pharmacy Electronically, [facility], Partial fill upon patient request if the prescription is for a schedule II opioi... Start Date: 03/27/23 Status: Ordered Potassium Chloride (Dec-Hkjr-Gir 10) 10 mEq oral tablet, extended release 1 tablet, By Mouth, Daily, # 90 tablet, 3 Refills, Maintenance, 07/02/23 15:49:00 EDT, [facility], 167.6, cm, 07/02/23 13:44:00 EDT, Height, 85, [...] Refills, Maintenance, 07/02/23 15:49:00 EDT, [facility], 167.6, cm, 07/02/23 13:44:00 EDT, Height, 85, kg, 01/15/23 14:55:00 EDT, Dry Weight Start Date: 07/02/23 Status: Ordered tamsulosin 0.4 mg oral capsule See Instructions, TAKE 1 CAPSULE BY MOUTH DAILY 30 MINUTES AFTER THE SAME MEAL, # 90 capsule, Refills 1, Tot. Refills 1, Maintenance, 05/22/23 9:00:00 EDT, Instructions Replace Required Details, Route to Pharmacy Electronically, [facility]/pharmacy #1157, 16... Start Date: 05/22/23 Status: Ordered [...] mL, 1 Refills, Maintenance, 07/02/23 14:05:00 EDT, [facility]/pharmacy #1567, Partial fill upon patient request if the [...] Team Personnel Name: Nayeli Fernandez RN Position: [facility] RN Member Role: Primary Care Nurse Name: Sonny Silverman RN Position: [facility] RN Member Role: Primary Care Nurse Name: Luciano Hernandez MD Position: [facility] Renal MD Member Role: Lifetime Consulting Physician Address: Address: [address] [place] [address] [address] [facility], [place] [address]- Name: Brennan Tyson MD Position: [facility] Physician - Primary Care Member Role: PCP Address: Address: [address] [place] [address]- Name: Teresa Boyd [place] Position: [facility] DAPHNE Driver'S License Reviewing Officer Member Role: Glass Embosser Name: Roxy Akers RN Position: [facility] MANISHA Nurse Member Role: Primary Care Nurse Name: Flores Freeman RN Position: [facility] RN Member Role: Primary Care Nurse Care Team Related Persons Name: PRABHAKAR JACINTO Address: home [address] [place] [address] Name: KANG JACINTO Name: JOSE SHAW Address: [place] [address] Name: ANUM DUBOSE Address: home [address] [place] [address]
--- OUTSIDE RECORDS SUMMARY | 2023-08-20 10:47 | XMS_ITS | Continuity of Care Document ---
Author Name Unknown Organization [facility] Adult Address [address] [place] [address]- Care Team Providers Care Interpersonal Communications Professor Name Role Phone Brennan Tyson MD Primary Care Physician Encounter [facility] Date(s): 12/24/19 - 12/31/19 [facility] [address] [place] [address]- [facility] Attending Physician: Not on Staff, Attending MD Referring Physician: Brennan Tyson MD Allergies, [...] 1Result Comment: [08/12/2018] [facility] [id number] 2Result Comment: [08/12/2018] [facility] [id number] Medications Advair Diskus 500 mcg-50 mcg inhalation powder 1 puffs, Inhalation, 2 times a day, # 180 each, 0 Refills, Maintenance, Powder Start Date: 10/23/12 Status: Ordered amLODIPine 10 mg oral tablet 10 mg, 1, tablet, By Mouth, Daily, # 90 tablet, Refills 3, Tot. Refills 3, Maintenance, 12/30/18 13:42:36 EDT, Route to Pharmacy Electronically, [id number], [facility]/pharmacy #1157 Start Date: 12/30/18 Stop [...] 06/17/19 6:49:21 EDT, Route to Pharmacy Electronically, [id number], [facility]/pharmacy #1157 Start Date: 06/17/19 Status: [...] Refills, Maintenance, 12/01/19 13:16:00 EST, [facility], 167.6, cm, 11/24/19 9:18:00 EST, Height, 90.7, [...] 10/07/18 8:59:29 EST, Route to Pharmacy Electronically, [id number], [facility]/pharmacy #1157 Start Date: 10/07/18 Status: Ordered LORazepam 0.5 mg oral tablet 1 tablet = 0.5 mg, By Mouth, Daily, PRN as needed for anxiety, for 30 days, # 30 tablet, 2 Refills,Acute 01/06/20 7:47:00 EDT, 10/08/19 7:47:00 EST, Tablet, [facility]/pharmacy #1157, 167.6, cm, 10/08/19 7:00:00 EST, Height, 90.7, kg, 11/20/19 8:17:00 EST,... Start Date: 10/08/19 Stop Date: [...] 1 Refills, Maintenance, 12/28/19 12:28:00 EDT, Tablet, [facility]/pharmacy #1157, 167.6, cm, 11/24/19 9:18:00 EST, [...] 04/08/19 14:06:58 EDT, Route to Pharmacy Electronically, [id number], [facility]/pharmacy #1157 Start Date: 04/08/19 Status: Ordered [...] Most recent to oldest [Reference Range]: 1 Pulse Rate [55-90 bpm] 57 bpm (12/24/19 9:07 AM) Blood Pressure [90-138/55-84 mm Hg] 134/ 78mm Hg (12/24/19 9:07 AM) Blood pressure sites Arm, left (12/24/19 9:07 AM) Social History Social History Type Response Smoking Status Former smoker; Type: Cigarettes; Other: quit 2006; entered on: 09/19/17 Sex
--- OUTSIDE RECORDS SUMMARY | 2023-08-20 10:47 | XMS_ITS | Continuity of Care Document ---
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ORE 23721, 167.6, cm, 06/18/22 14:40:00 EDT, Height Start Date: 07/08/22 Status: Ordered buPROPion 150 mg/24 hours (XL) oral tablet, extended release 1 tablet = 150 mg, By Mouth, Every 24 hours, # 14 tablet, 0 Refills, Maintenance, 10/18/22 17:03:00EST, [facility]/pharmacy #1157, Partial fill upon patient request if [...] 3, Route to Pharmacy Electronically, [facility], 167.6, cm, 11/21/21 9:53:00 EST, Height Start [...] # 45 tablet, 4 Refills, [facility], 167.6, cm, 04/01/22 8:47:00 EDT, Height Start Date: 06/07/22 Status: Ordered fluticasone 50 mcg/inh nasal spray 2 sprays, Nares, Both, Daily, Maintenance, 08/18/22 17:16:00 EDT, [place], Partial fill upon patient request if the [...] mL, 5 Refills, Maintenance, 10/17/22 11:51:00 EST, [facility], Partial fill upon patient request [...] 11/09/22 16:02:00 EST, 10/10/22 16:02:00 EST, Tablet, [facility]/pharmacy #1157, 165, cm, 09/25/22 13:10:00 EST, Height, [...] 04/04/23 15:00:00 EDT, 04/09/22 15:00:00 EDT, [facility]/pharmacy #1157, 167.6, cm, 04/01/22 8:47:00 EDT, Height [...] kg... Start Date: 10/18/22 Status: Ordered Pen Aristes, 31 G x 5 mm BD Ultra [...] 1 Refills, Maintenance, 12/22/20 12:40:00 EST, Tablet, [facility]/pharmacy #1157, 167.6, cm, 11/28/20 10:41:00 EST, Height, 90.7, kg, 09/08/19 8:17:00 EST, Dry Weight Start Date: 12/22/20 Stop Date: 06/20/21 Status: Ordered tamsulosin 0.4 mg oral capsule See Instructions, TAKE 1 CAPSULE BY MOUTH DAILY 30 MINUTES AFTER THE SAME MEAL, # 90 capsule, Refills 1, Instructions Replace Required Details, Route to Pharmacy Electronically, [facility] STORE 55616, 167.6, cm, 02/22/22 7:57:00 EDT, Height Start [...] Effective Dates Health Status Clinical Service Informant Atrial fibrillation Discharge Diagnosis 10/20/22 End-stage renal disease on hemodialysis Discharge Diagnosis 10/20/22 Major depression in partial remission Discharge Diagnosis 10/20/22 Vital Signs Most recent to oldest [Reference Range]: 1 Height 165 cm (10/18/22 4:17 PM) Oxygen Saturation [94-100 %] 92 % *L* (10/18/22 4:17 PM) Pulse Rate [55-90 bpm] 77 bpm (10/18/22 4:17 PM) Blood Pressure [90-138/55-84 mm Hg] 89/5 2mm Hg *L* (10/18/22 4:17 PM) Blood pressure sites Arm, left (10/18/22 4:17 PM) Social History Social History Type Response Smoking Status Former smoker; Type: Cigarettes; Other: quit 2006; entered on: 09/19/17 Sex Note * Sera Pineda [place]: PERFORM, SIGN, VERIFY Event Display: Patient Education/Instruction Authored Date: [id number] [facility] *ELVIS Mei Clinical Summary Name ROLDAN JACINTO Age 72 Years 1950 PCP Brennan Tyson MD PCP Visit Date 10/18/2022 16:00:00 Additional Instructions: Scheduled Appointments?? Future Appointments ?No Future Appointments Scheduled Follow-Up Instructions ?? Diagnosis Type 2 diabetes mellitus without complications Medications: Please continue your medications until treatment is completed or stopped by your provider. Discuss any questions related to medications with your provider. New Medications [facility] [address], [place] [id number], [phone] BuPROpion (buPROPion 150 mg/24 hours (XL) oral tablet, extended release) 1 tab(s) Oral every 24 hours for 14 Days. Refills: 0. Next Dose: Medications to Continue Taking That Have Changed [facility], [address], [place] [id number], [phone] - Durable Medical Equipment (One Touch Delica Lancets) 1 box = 100 lancets Check blood sugar QD icd 10 E11.9. Refills: 3. Next Dose: - Durable Medical Equipment (One Touch Verio glucometer) Test glucose levels QD Use with One Touch test strips and lancets ICD 10 E11.9. Refills: 0. Next Dose: - Durable Medical Equipment (One Touch Verio test strips) Use with One Touch Verio glucometer to check glucose QD ICD 10 E 11.9. Refills: 3. Next Dose: These medications were not printed or sent to your pharmacy - Durable Medical Equipment (CPAP Machine) BiPAP 20/15 cm with a heated humidifier. Recommend ordering a machine with compliance data tracking capabilities and following residual AHI. DX RICKIE G47.33. Refills: 0. Next Dose: - Durable Medical Equipment (CPAP Equipment) Cpap supplies- mask, tubing, filters, headgear, water chamber, chin strap dx RICKIE G47.33. Refills: 11. Next Dose: - Durable Medical Equipment (Insulin Syringe, BD Ultra-Fine 1 cc 31 G x 8 mm (5/16in)) To use as directed for heparin injections three times daily. Refills: 5. Next Dose: - Durable Medical Equipment (Pen Aristes, 31 G x 5 mm BD Ultra Fine III) use as directed three times daily for heparin injections. Refills: 5. Next Dose: - Durable Medical Equipment (Rollator Walker) use daily for all ADL's. Refills: 0. Next Dose: Medications to Continue with No Changes These medications were not printed or sent to your pharmacy Aspirin (aspirin 81 mg oral delayed release tablet) 1 tab(s) Oral Daily. Next Dose: Atorvastatin (atorvastatin 40 mg oral tablet) 1 tab(s) Oral Daily. Refills: 1. Next Dose: Carvedilol (carvedilol 25 mg oral tablet) 1 tab(s) Oral twice a day. Refills: 3. Next Dose: Cholecalciferol (cholecalciferol 2000 intl units oral tablet) Oral Daily. Next Dose: Fenofibrate (fenofibrate 160 mg oral tablet) 0.5 tab(s) Oral Daily. Refills: 4. Next Dose: Fluticasone Nasal (fluticasone 50 mcg/inh nasal spray) 2 spray(s) Nares, Both Daily. Next Dose: Fluticasone-Salmeterol (Advair Diskus 500 mcg-50 mcg inhalation powder) 1 puff(s) Inhalation twice a day. Next Dose: Folic Acid (folic acid 1 mg oral tablet) 1 tab(s) Oral Daily. Next Dose: Heparin (heparin 5000 u/ml injectable solution) 5,000 unit(s) Subcutaneous Injection 3 times a day.Refills: 5. Next Dose: Isosorbide Mononitrate (isosorbide mononitrate 30 mg oral tablet, extended release) 1 tab(s) Oral Daily in the morning. Next Dose: Lorazepam (LORazepam 0.5 mg oral tablet) 1 tab(s) Oral Daily as needed as needed for anxiety for 30Days. Refills: 0. Next Dose: Melatonin (melatonin 3 mg oral tablet) 3 Milligram Oral Daily at Bedtime as needed Insomnia. Next Dose: Minoxidil (minoxidil 2.5 mg oral tablet) 1 tab(s) Oral Daily. Next Dose: Montelukast (montelukast 10 mg oral tablet) 1 tab(s) Oral Daily at Bedtime. Next Dose: Multivitamin With Minerals (Centrum Silver Men's) 1 tab(s) Oral Daily. Next Dose: Omeprazole (omeprazole 40 mg oral enteric coated capsule) 1 capsule Oral twice a day for 90 Days. Refills: 3. Next Dose: Ropinirole (rOPINIRole 1 mg oral tablet) 2 tab(s) Oral Daily at Bedtime for 90 Days. Refills: 1. Next Dose: Tamsulosin (tamsulosin 0.4 [...] labetalol Medications Given This Visit Future Orders ?No future orders Vital Signs Height 165 cm Weight BMI Blood Pressure 89 mm Hg/52 mm Hg Temperature Pulse Rate 77 bpm Respiratory Rate 02 Sat Mode of Delivery 92 %/ You can now view a summary of your hospital visit from the comfort of your home through a free online portal called [employer]. [employer] is a website that allows you to securely view your medical information including discharge summary, medications and follow-up visits. ??You can alsosend a secure electronic message to your doctor???s office to request appointments, renew medications or just ask a question. You can enroll at [email or web address] or register during your next office [...] primary care provider, you may find a [facility] provider by calling [facility] [employer] [facility] at [phone]. For information about the plan of care [...] Personnel Name: Nayeli Fernandez RN Position: [facility] RN Member Role: Primary Care Nurse Name: Erin Pendleton RN Position: S RN Member Role: Primary Care Nurse Name: Ruby Hernández RN Position: S RN Member Role: Primary Care Nurse Name: Luciano Hernandez MD Position: [facility] Renal MD Member Role: Lifetime Consulting Physician Address: Address: [address] [place] [address] [address] [facility] [place] [address]- Name: Brennan Tyson MD Position: [facility] Primary Care Physician Member Role: PCP Address: Address: [address] [place] [address]- Name: Roxy Akers RN Position: S RN Member Role: Primary Care Nurse Name: Flores Freeman RN Position: S RN Member Role: Primary Care Nurse Name: Fabiana Hairston RN Position: S RN Member Role: Primary Care Nurse Care Team Related Persons Name: PRABHAKAR JACINTO Address: home [address] [place] [address] Name: RUBY JACINTO Name: JOSE SHAW Address: [place] [address] Name: ANUM DUBOSE Address: home [address] [place] [address]
--- OUTSIDE RECORDS SUMMARY | 2023-08-20 10:47 | XMS_ITS | Continuity of Care Document ---
Author Name Unknown Organization [facility] Address Unknown Care Team Providers Care Time Buyer Name Role Phone Brennan Tyson MD Primary Care Physician [phone] Encounter [facility] Date(s): 06/06/21 - 07/06/21 [facility] Attending Physician: Joy Dove Admitting Physician: Admtr, Joy Referring Physician: Admtr, Ar8 Allergies, Adverse Reactions, Alerts Substance Reaction Severity Status labetalol Active tetanus toxoid Active HORSE SERUM PROTEINS AB.IGE.RAST CLASS Active Immunizations Given and Recorded Vaccine Date Status Refusal Reason SARS-CoV-2 (COVID-19) mRNA-1273 vaccine 06/21/21 R ecorded [...] 1Result Comment: [08/12/2018] [facility] [id number] 2Result Comment: [08/12/2018] [facility] [id number] Medications Advair Diskus 500 mcg-50 mcg inhalation powder 1 puffs, Inhalation, 2 times a day, # 180 each, 0 Refills, Maintenance, Powder Start Date: 10/23/12 Status: Ordered amLODIPine 10 mg oral tablet 10 mg, 1, tablet, By Mouth, Daily, for 90 days, # 90 tablet, Refills 0, Tot. Refills 0, Hard Stop 08/26/21 13:26:00 EST, 05/28/21 13:26:00 EDT, Route to Pharmacy Electronically, [facility]/pharmacy #1157, 167.6, cm, 05/07/21 16:16:00 EDT, Height, 90.7, kg, 1... Start Date: 05/28/21 Stop Date: 08/26/21 Status: Ordered amLODIPine 10 mg oral tablet 10 mg, 1, tablet, By Mouth, Daily, # 90 tablet, Refills 3, Tot. Refills 3, Maintenance, 08/26/21 13:26:00 EST, Route to Pharmacy Electronically, [facility]/pharmacy #1157, 167.6, cm, 05/07/21 16:16:00 EDT, Height, [...] Refills, Maintenance, 02/28/21 15:05:00 EDT, Tablet, [facility]/pharmacy #1157, Partial fill upon patient request if the prescription is for a schedule II opioid drug., 167.6, cm, 02/07/21 9:57:00 EDT, Heigh... Start Date: 02/28/21 Status: Ordered carvedilol 25 mg oral tablet 25 mg, 1, tablet, By Mouth, 2 times a day, # 60 tablet, Refills 11, Tot. Refills 11, Maintenance, 02/28/21 16:34:00 EDT, Route to Pharmacy Electronically, [facility]/pharmacy #1157, 167.6, cm, 02/07/21 9:57:00 EDT, Height, [...] Refills, Maintenance, 12/25/20 9:10:00 EST, [facility], 167.6, cm, 11/28/20 10:41:00 EST, Height, 90.7, kg, 09/08/19 8:17:00 EST, Dry Weight Start Date: 12/25/20 Status: Ordered fenofibrate 160 mg oral tablet 0.5 tablet, By Mouth, Daily, # 45 tablet, 3 Refills, Maintenance, 05/28/21 7:19:00 EDT, [facility]/pharmacy #1157, 167.6, cm, 05/07/21 16:16:00 EDT, Height, 90.7, kg, 09/08/19 8:17:00 EST, Dry Weight Start Date: 05/28/21 Status: Ordered hydrochlorothiazide 12.5 mg oral tablet See Instructions, 2 tabs po qAm and 1 tab qPM, # 90 each, 2 Refills, Maintenance, 02/12/21 7:40:00 EDT, [facility]/pharmacy #1157, dose increase, 167.6, cm, 02/07/21 9:57:00 [...] 13:26:00 EDT, Route to Pharmacy Electronically, [facility]/pharmacy #1157, 167.6, cm, 03/27/20 8:14:00 EDT,Height, 90.7, [...] capsule, 0 Refills, Maintenance, 04/27/21 8:50:00 EDT, [facility]/pharmacy #1157, 167.6, cm, 04/10/21 12:50:00 EDT, Height, [...] 11 Refills, Maintenance, 08/31/20 11:42:00 EST, [facility]/pharmacy #1157, 167.6, cm, 03/27/20 8:14:00 EDT, Height, [...] BEDTIME, # 180 tablet, 1 Refills, Maintenance, [facility] STORE 53415, 167.6, cm, 04/10/21 12:50:00 EDT, Height, 90.7, kg, 09/08/19 8:17:00 EST, Dry Weight Start Date: 05/07/21 Status: Ordered rOPINIRole 1 mg oral tablet 2 tablet = 2 mg, By Mouth, Daily at bedtime, # 180 tablet, 1 Refills, Maintenance, 12/22/20 12:40:00 EST, Tablet, [facility]/pharmacy #1157, 167.6, cm, 11/28/20 10:41:00 EST, Height, 90.7, kg, 09/08/19 8:17:00 EST, Dry Weight Start Date: 12/22/20 Stop Date: 06/20/21 Status: Ordered sertraline 100 mg oral tablet 1 tablet = 100 mg, By Mouth, Daily, # 90 tablet, 3 Refills, Maintenance, 05/29/21 14:34:00 EDT, Tablet, [facility]/pharmacy #1157, dose increase, 167.6, cm, 05/07/21 16:16:00 EDT, Height, 90.7, kg, 198:17:00 EST, Dry Weight Start Date: 05/29/21 Stop Date: 05/24/22 Status: Ordered tamsulosin 0.4 mg oral capsule 0.4 mg, 1, capsule, By Mouth, Daily, 30 minutes after the same meal, # 90 capsule, Refills 3, Tot. Refills 3, Maintenance, 10/25/20 7:20:00 EST, Route to Pharmacy Electronically, [facility]/pharmacy #1157, 167.6, cm, 03/27/20 8:14:00 EDT, Height, [...]
--- OUTSIDE RECORDS SUMMARY | 2023-08-20 10:47 | XMS_ITS | Continuity of Care Document ---
Author Name Unknown Organization [facility] Address Unknown Care Team Providers Care Claim Clinician Name Role Phone Brennan Tyson MD Primary Care Physician [phone] [facility]counter [facility] Date[facility]s): 05/09/21 - 06/08/21 [facility] Allergies, Adverse Reactions, Alerts Substance [...] acel(Tdap) 10/20/13 Given 1Result Comment: [08/12/2018] [facility] [id number] 2Result Comment: [08/12/2018] [facility] [id number] Medications Advair Diskus 500 mcg-50 mcg inhalation powder 1 puffs, Inhalation, 2 times a day, # 180 each, 0 Refills, Maintenance, Powder Start Date: 10/23/12 Status: Ordered amLODIPine 10 mg oral tablet 10 mg, 1, tablet, By Mouth, Daily, for 90 days, # 90 tablet, Refills 0, Tot. Refills 0, Hard Stop 08/26/21 13:26:00 EST, 05/28/21 13:26:00 EDT, Route to Pharmacy Electronically, [facility]/pharmacy #1157, 167.6, cm, 05/07/21 16:16:00 EDT, Height, 90.7, kg, 1... Start Date: 05/28/21 Stop Date: 08/26/21 Status: Ordered amLODIPine 10 mg oral tablet 10 mg, 1, tablet, By Mouth, Daily, # 90 tablet, Refills 3, Tot. Refills 3, Maintenance, 08/26/21 13:26:00 EST, Route to Pharmacy Electronically, [facility]/pharmacy #1157, 167.6, cm, 05/07/21 16:16:00 EDT, Height, [...] 11 Refills, Maintenance, 02/28/21 15:05:00 EDT, Tablet, [facility]/pharmacy #1157, Partial fill upon patient request if the prescription is for a schedule II opioid drug., 167.6, cm, 02/07/21 9:57:00 EDT, Heigh... Start Date: 02/28/21 Status: Ordered carvedilol 25 mg oral tablet 25 mg, 1, tablet, By Mouth, 2 times a day, # 60 tablet, Refills 11, Tot. Refills 11, Maintenance, 02/28/21 16:34:00 EDT, Route to Pharmacy Electronically, [facility]/pharmacy #1157, 167.6, cm, 02/07/21 9:57:00 EDT, Height, [...] tablet, 5 Refills, Maintenance, 12/25/20 9:10:00 EST, [facility] STORE 35655, 167.6, cm, 11/28/20 10:41:00 EST, Height, 90.7, kg, 09/08/19 8:17:00 EST, Dry Weight Start Date: 12/25/20 Status: Ordered fenofibrate 160 mg oral tablet 0.5 tablet, By Mouth, Daily, # 45 tablet, 3 Refills, Maintenance, 05/28/21 7:19:00 EDT, [facility]/pharmacy #1157, 167.6, cm, 05/07/21 16:16:00 EDT, Height, 90.7, kg, 09/08/19 8:17:00 EST, Dry Weight Start Date: 05/28/21 Status: Ordered hydrochlorothiazide 12.5 mg oral tablet See Instructions, 2 tabs po qAm and 1 tab qPM, # 90 each, 2 Refills, Maintenance, 02/12/21 7:40:00 EDT, [facility]/pharmacy #1157, dose increase, 167.6, cm, 02/07/21 9:57:00 [...] 06/02/20 13:26:00 EDT, Route to Pharmacy Electronically, [facility]/pharmacy #1157, 167.6, cm, 03/27/20 8:14:00 EDT,Height, 90.7, kg, 09/08/19 8:17:00 EST, Dry Weight Start Date: 06/02/20 Status: Ordered LORazepam 0.5 mg oral tablet 1 tablet = 0.5 mg, By Mouth, Daily, PRN as needed for anxiety, for 30 days, # 30 tablet, 2 Refills,Acute 06/26/21 15:17:00 EDT, 03/28/21 15:17:00 EDT, Tablet, [facility]/pharmacy #1157, 167.6, cm, :57:00 EDT, Height, 90.7, [...] capsule, 0 Refills, Maintenance, 04/27/21 8:50:00 EDT, [facility]/pharmacy #1157, 167.6, cm, 04/10/21 12:50:00 EDT, Height, [...] tablet, 11 Refills, Maintenance, 08/31/20 11:42:00 EST, [facility]/pharmacy #1157, 167.6, cm, 03/27/20 8:14:00 EDT, Height, [...] BEDTIME, # 180 tablet, 1 Refills, Maintenance, [facility] STORE 55173, 167.6, cm, 04/10/21 12:50:00 EDT, Height, 90.7, kg, 09/08/19 8:17:00 EST, Dry Weight Start Date: 05/07/21 Status: Ordered rOPINIRole 1 mg oral tablet 2 tablet = 2 mg, By Mouth, Daily at bedtime, # 180 tablet, 1 Refills, Maintenance, 12/22/20 12:40:00 EST, Tablet, [facility]/pharmacy #1157, 167.6, cm, 11/28/20 10:41:00 EST, Height, 90.7, kg, 09/08/19 8:17:00 EST, Dry Weight Start Date: 12/22/20 Stop Date: 06/20/21 Status: Ordered sertraline 100 mg oral tablet 1 tablet = 100 mg, By Mouth, Daily, # 90 tablet, 3 Refills, Maintenance, 05/29/21 14:34:00 EDT, Tablet, [facility]/pharmacy #1157, dose increase, 167.6, cm, 05/07/21 16:16:00 EDT, Height, 90.7, kg, 198:17:00 EST, Dry Weight Start Date: 05/29/21 Stop Date: 05/24/22 Status: Ordered tamsulosin 0.4 mg oral capsule 0.4 mg, 1, capsule, By Mouth, Daily, 30 minutes after the same meal, # 90 capsule, Refills 3, Tot. Refills 3, Maintenance, 10/25/20 7:20:00 EST, Route to Pharmacy Electronically, [facility]/pharmacy #1157, 167.6, cm, 03/27/20 8:14:00 EDT, Height, [...]
--- OUTSIDE RECORDS SUMMARY | 2023-08-20 10:47 | XMS_ITS | Continuity of Care Document ---
Author Name Unknown Organization [facility] Address [address] [place] [address]- Care Team Providers Care City Route Driver Name Role Phone Brennan Tyson MD Primary Care Physician [facility] Date[facility]s): 07/04/22 - 11/01/22 [facility] [address] [place] [address]- Attending Physician: Brennan Tyson MD Allergies, Adverse [...] tetanus/diphtheria/pertussis, acel(Tdap) 10/20/13 Given 1Result Comment: [08/12/2018] [facility] [id number] 2Result Comment: [08/12/2018] [facility] [id number] Medications Advair Diskus 500 mcg-50 mcg inhalation [...] tablet, 1 Refills, Maintenance, 07/08/22 0:13:00 EDT, [facility] STORE 02372, 167.6, cm, 06/18/22 14:40:00 EDT, Height Start [...] 3, Route to Pharmacy Electronically, [facility], 167.6, cm, 11/21/21 9:53:00 EST, Height Start [...] Mouth, Daily, # 45 tablet, 4 Refills, [facility] 13970, 167.6, cm, 04/01/22 8:47:00 EDT, Height Start Date: 06/07/22 Status: Ordered fluticasone 50 mcg/inh nasal spray 2 sprays, Nares, Both, Daily, Maintenance, 08/18/22 17:16:00 EDT, [place], Partial fill upon patient request if the [...] mL, 5 Refills, Maintenance, 10/17/22 11:51:00 EST, [facility], Partial fill upon [...] 11/09/22 16:02:00 EST, 10/10/22 16:02:00 EST, Tablet, [facility]/pharmacy #1157, 165, cm, 09/25/22 13:10:00 EST, Height, [...] 04/04/23 15:00:00 EDT, 04/09/22 15:00:00 EDT, [facility]/pharmacy #1157, 167.6, cm, 04/01/22 8:47:00 EDT, [...] kg... Start Date: 10/18/22 Status: Ordered Pen Goodwell, 31 G x 5 mm BD Ultra [...] tablet, 1 Refills, Maintenance, 10/28/22 8:47:00EST, Tablet, [facility]/pharmacy #1157, 165, cm, 10/18/22 16:17:00 EST, Height, 103, kg, 09/19/22 22:30:00EST, Dry Weight Start Date: 10/28/22 Stop Date: 04/26/23 Status: Ordered tamsulosin 0.4 mg oral capsule See Instructions, TAKE 1 CAPSULE BY MOUTH DAILY 30 MINUTES AFTER THE SAME MEAL, # 90 capsule, Refills 1, Instructions Replace Required Details, Route to Pharmacy Electronically, [facility] STORE 64815, 167.6, cm, 02/22/22 7:57:00 EDT, Height Start [...] Member Role: Lifetime Consulting Physician Address: Address: [address] [place] [address] [address] [facility] [place] [address]- Name: Brennan Tyson MD Position: [facility] Primary Care Physician Member Role: PCP Address: Address: [address] [place] [address]- Name: Roxy Akers RN Position: S RN Member Role: Primary Care Nurse Name: Flores Freeman RN Position: S RN Member Role: Primary Care Nurse Name: Fabiana Hairston RN Position: [facility] RN Member Role: Primary Care Nurse Care Team Related Persons Name: PRABHAKAR JACINTO Address: home [address] [place] [address] Name: RUBY JACINTO Name: JOSE SHAW Address: [place] [address] Name: ANUM DUBOSE Address: home [address] [place] [address]
--- OUTSIDE RECORDS SUMMARY | 2023-08-20 10:47 | XMS_ITS | Continuity of Care Document ---
Author Name Unknown Organization [facility] Address [address] [place] [address]- Care Team Providers Care Dentist/Owner Name Role Phone Brennan Tyson MD Primary Care Physician [facility] 03/27/23 - 04/26/23 [facility] [address] [place] [address]- Allergies, Adverse Reactions, Alerts Substance Reaction Severity [...] acel(Tdap) 10/20/13 Given 1Result Comment: [08/12/2018] [facility] 55345-693-51 2Result Comment: [08/12/2018] [facility] [id number] Medications Advair Diskus 500 mcg-50 mcg inhalation [...] 03/27/23 10:47:00 EDT, Route to Pharmacy Electronically, [facility], Partial fill upon patient request if the prescription is for a schedule II opioi... Start Date: 03/27/23 Status: Ordered atorvastatin 40 mg oral tablet 1 tablet, By Mouth, Daily, # 90 tablet, 1 Refills, Maintenance, 02/22/23 10:19:00 EDT, [facility] STORE 29028, 165, cm, 02/21/23 9:40:00 EDT, Height, 85, kg, 01/15/23 14:55:00 EDT, Dry Weight Start Date: 02/22/23 Status: Ordered bumetanide 1 mg oral tablet 1 mg, 1, tablet, By Mouth, Daily, dose reduction, # 30 tablet, Refills 5, Tot. Refills 5, Maintenance, 03/13/23 11:25:00 EDT, Route to Pharmacy Electronically, [facility]/pharmacy #1157, Partial fill upon patient request if the prescription is for a schedule... Start Date: 03/13/23 Status: Ordered carvedilol 25 mg oral tablet 1, tablet, By Mouth, 2 times a day, # 180 tablet, Refills 3, Maintenance, 02/26/23 16:11:00 EDT, Route to Pharmacy Electronically, [facility], 165, cm, 02/21/23 9:40:00 EDT, Height, 85, [...] # 45 tablet, 4 Refills, [facility], 167.6, cm, 04/01/22 8:47:00 EDT, Height Start Date: 06/07/22 Status: Ordered fluticasone 50 mcg/inh nasal spray 2 sprays, Nares, Both, Daily, Maintenance, 08/18/22 17:16:00 EDT, [place], Partial fill upon patient request if the [...] tablet, 1 Refills, Maintenance,02/21/23 10:02:00 EDT, [facility]/pharmacy #1157, Partial fill upon patient request if [...] kg... Start Date: 10/18/22 Status: Ordered Pen Florence, 31 G x 5 mm BD Ultra [...] 03/27/23 10:46:00 EDT, Route to Pharmacy Electronically, [facility], Partial fill upon patient request [...] tablet, 1 Refills, Maintenance, 02/27/23 10:11:00 EDT, [facility] 01608, 165, cm, 02/21/23 9:40:00 EDT, Height, 85, kg, 01/15/23 14:55:00 EDT, Dry Weight Start Date: 02/27/23 Status: Ordered tamsulosin 0.4 mg oral capsule See Instructions, TAKE 1 CAPSULE BY MOUTH DAILY 30 MINUTES AFTER THE SAME MEAL, # 90 capsule, Refills 1, Maintenance, 11/08/22 11:58:00 EST, Instructions Replace Required Details, Route to Pharmacy Electronically, [facility] 59096, 165, cm, 10/18/22 16... Start Date: 11/08/22 [...] Team Personnel Name: Sonny Silverman RN Position: [facility] RN Member Role: Primary Care Nurse Name: Luciano Hernandez MD Position: [facility] Renal MD Member Role: Lifetime Consulting Physician Address: Address: [address] [place] [address] [address] [facility] [place] [address]- Name: Brennan Tyson MD Position: [facility] Physician - Primary Care Member Role: PCP Address: Address: [address] [place] [address]- [place] Name: Roxy Akers RN Position: [facility] AMB Nurse Member Role: Primary Care Nurse Name: Flores [facility] RN Position: [facility] RN Member Role: Primary Care Nurse Care Team Related Persons Name: PRABHAKAR JACINTO Address: [address] [address] Name: KANG JACINTO Name: JOSE SHAW Address: [place] [address] Name: ANUM DUBOSE Address: home [address] [place], [place] [id number]
--- OUTSIDE RECORDS SUMMARY | 2023-08-20 10:47 | XMS_ITS | Continuity of Care Document ---
Author Name Unknown Organization [facility] Address [address] [place] [address]- Care Team Providers Care Lab Engineer Name Role Phone Marbella RINCON, Brennan Primary Care Physician [facility]): [facility] - 06/30/21 [facility] [address] [place] [address] Attending Physician: Joy Dove Admitting Physician: Joy [...] Given 1Result Comment: [08/12/2018] [facility] [id number] 2Result Comment: [08/12/2018] [facility] [id number] Medications Advair Diskus 500 mcg-50 mcg inhalation powder 1 puffs, Inhalation, 2 times a day, # 180 each, 0 Refills, Maintenance, Powder Start Date: 10/23/12 Status: Ordered amLODIPine 10 mg oral tablet 10 mg, 1, tablet, By Mouth, Daily, for 90 days, # 90 tablet, Refills 0, Tot. Refills 0, Hard Stop 08/26/21 13:26:00 EST, 05/28/21 13:26:00 EDT, Route to Pharmacy Electronically, [facility]/pharmacy #1157, 167.6, cm, 05/07/21 16:16:00 EDT, Height, 90.7, kg, 1... Start Date: 05/28/21 Stop Date: 08/26/21 Status: Ordered amLODIPine 10 mg oral tablet 10 mg, 1, tablet, By Mouth, Daily, # 90 tablet, Refills 3, Tot. Refills 3, Maintenance, 08/26/21 13:26:00 EST, Route to Pharmacy Electronically, [facility]/pharmacy #1157, 167.6, cm, 05/07/21 16:16:00 EDT, Height, [...] Maintenance, 02/28/21 15:05:00 EDT, Tablet, [facility]/pharmacy #1157, Partial fill [...] EDT, Route to Pharmacy Electronically, [facility]/pharmacy #1157, 167.6, cm, 02/07/21 9:57:00 EDT, Height, [...] Refills, Maintenance, 12/25/20 9:10:00 EST, [facility], 167.6, cm, 11/28/20 10:41:00 EST, Height, 90.7, kg, 09/08/19 8:17:00 EST, Dry Weight Start Date: 12/25/20 Status: Ordered fenofibrate 160 mg oral tablet 0.5 tablet, By Mouth, Daily, # 45 tablet, 3 Refills, Maintenance, 05/28/21 7:19:00 EDT, [facility]/pharmacy #1157, 167.6, cm, 05/07/21 16:16:00 EDT, Height, 90.7, kg, 09/08/19 8:17:00 EST, Dry Weight Start Date: 05/28/21 Status: Ordered hydrochlorothiazide 12.5 mg oral tablet See Instructions, 2 tabs po qAm and 1 tab qPM, # 90 each, 2 Refills, Maintenance, 02/12/21 7:40:00 EDT, [facility]/pharmacy #1157, dose increase, 167.6, cm, 02/07/21 9:57:00 [...] EDT, Route to Pharmacy Electronically, [facility]/pharmacy #1157, 167.6, cm, 03/27/20 8:14:00 EDT,Height, 90.7, [...] capsule, 0 Refills, Maintenance, 04/27/21 8:50:00 EDT, [facility]/pharmacy #1157, 167.6, cm, 04/10/21 12:50:00 EDT, Height, [...] tablet, 11 Refills, Maintenance, 08/31/20 11:42:00 EST, [facility]/pharmacy #1157, 167.6, cm, 03/27/20 8:14:00 EDT, Height, [...] BEDTIME, # 180 tablet, 1 Refills, Maintenance, [facility] STORE 44561, 167.6, cm, 04/10/21 12:50:00 EDT, Height, 90.7, [...] Maintenance, 05/29/21 14:34:00 EDT, Tablet, [facility]/pharmacy #1157, dose increase, 167.6, cm, 05/07/21 16:16:00 EDT, Height, 90.7, kg, 198:17:00 EST, Dry Weight Start Date: 05/29/21 Stop Date: 05/24/22 Status: Ordered tamsulosin 0.4 mg oral capsule 0.4 mg, 1, capsule, By Mouth, Daily, 30 minutes after the same meal, # 90 capsule, Refills 3, Tot. Refills 3, Maintenance, 10/25/20 7:20:00 EST, Route to Pharmacy Electronically, [facility]/pharmacy #1157, 167.6, cm, 03/27/20 8:14:00 EDT, Height, [...]
--- OUTSIDE RECORDS SUMMARY | 2023-08-20 10:47 | XMS_ITS | Continuity of Care Document ---
Author Name Unknown Organization [facility] Address [address] [place] [address]- Care Team Providers Care Occupational Physician Name Role Phone Brennan Tyson MD Primary Care Physician [facility] 07/01/23 - 07/31/23 [facility] [address] [place] [address]- Allergies, Adverse Reactions, Alerts Substance Reaction Severity Status labetalol Active tetanus toxoid Active HORSE SERUM PROTEINS AB.IGE.RAST CLASS Active Immunizations Given and Recorded Vaccine Date Status Refusal Reason [id number] bivalent booster vax 07/21/23 Recorded influenza virus [...] tetanus/diphtheria/pertussis, acel(Tdap) 10/20/13 Given 1Result Comment: [08/12/2018] [facility] [id number] 2Result Comment: [08/12/2018] [facility] 6921-0052-85 Medications Advair Diskus 500 mcg-50 mcg inhalation [...] 10:47:00 EDT, Route to Pharmacy Electronically, [facility], Partial fill upon patient request if the prescription is for a schedule II opioi... Start Date: 03/27/23 Status: Ordered atorvastatin 40 mg oral tablet 1 tablet, By Mouth, Daily, # 90 tablet, 1 Refills, Maintenance, 07/10/23 18:32:00 EDT, [facility] 14755, 167.6, cm, 07/02/23 13:44:00 EDT, Height, 85, kg, 01/15/23 14:55:00 EDT, Dry Weight Start Date: 07/10/23 Status: Ordered bumetanide 1 mg oral tablet 2 mg, 2, tablet, By Mouth, Daily, # 180 tablet, Refills 1, Maintenance, 07/02/23 15:49:00 EDT, Route to Pharmacy Electronically, [facility] 86381, 167.6, cm, 07/02/23 13:44:00 EDT, Height, 85, kg, 01/15/23 14:55:00 EDT, Dry Weight Start Date: 07/02/23 Status: Ordered carvedilol 25 mg oral tablet 1, tablet, By Mouth, 2 times a day, # 180 tablet, Refills 3, Maintenance, 02/26/23 16:11:00 EDT, Route to Pharmacy Electronically, [facility] 71619, 165, cm, 02/21/23 9:40:00 EDT, Height, 85, kg, 01/15/23 14:55:00 EDT, Dry Weight Start Date: 02/26/23 Status: Ordered duloxetine 30 mg oral enteric coated capsule See Instructions, 1 capsule daily for 2 weeks and then 1 capsule every other day for 2 weeks and then stop., # 21 capsule, 0 Refills, Maintenance, 07/09/23 15:44:00 EDT, [facility]/pharmacy #1157, Partial fill upon patient request if the prescription is for... Start Date: 07/09/23 Status: Ordered duloxetine 60 mg oral enteric coated capsule 1 capsule, By Mouth, Daily, # 90 capsule, 3 Refills, Maintenance, 07/02/23 15:49:00 EDT, [facility] 91866, 167.6, cm, 07/02/23 13:44:00 EDT, Height, 85, kg, 01/15/23 14:55:00 EDT, Dry Weight Start Date: 07/02/23 Status: Ordered fenofibrate 160 mg oral tablet 0.5 tablet, By Mouth, Daily, # 45 tablet, 0 Refills, Maintenance, 06/10/23 0:49:00 EDT, [facility] 02978, 167.6, cm, 04/11/23 8:40:00 EDT, Height, 85, kg, 01/15/23 14:55:00 EDT, Dry Weight Start Date: 06/10/23 Status: Ordered fluticasone 50 mcg/inh nasal spray 2 sprays, Nares, Both, Daily, Maintenance, 08/18/22 17:16:00 EDT, [place], Partial fill upon patient request if the [...] 1 Refills, Maintenance,02/21/23 10:02:00 EDT, [facility]/pharmacy #1157, Partial fill upon patient request [...] Refills, Maintenance, 06/19/23 16:44:00 EDT, [facility], 167.6, cm, 04/11/23 8:40:00 EDT, Height, 85, [...] kg... Start Date: 10/18/22 Status: Ordered Pen Ciales, 31 G x 5 mm BD Ultra [...] 03/27/23 10:46:00 EDT, Route to Pharmacy Electronically, [facility], Partial fill upon patient request if the prescription is for a schedule II opioi... Start Date: 03/27/23 Status: Ordered Potassium Chloride (Ido-Gcmv-Ahe 10) 10 mEq oral tablet, extended release 1 tablet, By Mouth, Daily, # 90 tablet, 3 Refills, Maintenance, 07/02/23 15:49:00 EDT, [facility], 167.6, cm, 07/02/23 13:44:00 EDT, Height, 85, [...] Refills, Maintenance, 07/02/23 15:49:00 EDT, [facility], 167.6, cm, 07/02/23 13:44:00 EDT, Height, 85, [...] Team Personnel Name: Nayeli Fernandez RN Position: [facility] RN Member Role: Primary Care Nurse Name: Sonny Silverman RN Position: [facility] RN Member Role: Primary Care Nurse Name: Luciano Hernandez MD Position: [facility] Renal MD Member Role: Lifetime Consulting Physician Address: Address: [address] [place] [address] [address] [facility] [place] [place] [address]- Name: Brennan Tyson MD Position: [facility] Physician - Primary Care Member Role: PCP Address: Address: [address] [place] [address]- Name: Teresa Boyd [place] Position: [facility] DAPHNE Actuarial Intern Member Role: Cad Administrator Name: Roxy Akers RN Position: [facility] MANISHA Nurse Member Role: Primary Care Nurse Name: Flores [facility] RN Position: [facility] RN Member Role: Primary Care Nurse Care Team Related Persons Name: PRABHAKAR JACINTO Address: home [address] [place] [address] Name: KANG JACINTO Name: JOSE SHAW Address: [place] [address] Name: ANUM DUBOSE Address: home [address] [place] [address]
--- OUTSIDE RECORDS SUMMARY | 2023-08-20 10:48 | XMS_ITS | Continuity of Care Document ---
Author Name Unknown Organization [facility] Address [address] [place] [address]- Care Team Providers Care Astrochemist Name Role Phone Brennan Tyson MD Primary Care Physician [facility] 11/20/22 - 12/20/22 [facility] [address] [place] [address]- Allergies, Adverse Reactions, Alerts Substance Reaction Severity [...] [facility] [id number] 2Result Comment: [08/12/2018] formerly named [facility] [id number] Medications Advair Diskus 500 mcg-50 mcg inhalation [...] tablet, 1 Refills, Maintenance, 07/08/22 0:13:00 EDT, [facility] ST[facility] 88668, 167.6, cm, 06/18/22 14:40:00 EDT, Height Start Date: 07/08/22 Status: Ordered buPROPion 150 mg/24 hours (XL) oral tablet, extended release 1 tablet = 150 mg, By Mouth, Every 24 hours, # 14 tablet, 0 Refills, Maintenance, 10/18/22 17:03:00EST, [facility]/pharmacy #1157, Partial fill [...] Refills, Maintenance, 10/20/22 11:47:00 EST, ER Tablet, [facility]/pharmacy #1157, Partial fill upon patient request if the prescription is for a... Start Date: 10/20/22 Status: Ordered carvedilol 25 mg oral tablet 1, tablet, By Mouth, 2 times a day, # 180 tablet, Refills 3, Route to Pharmacy Electronically, [facility], 167.6, cm, 11/21/21 9:53:00 EST, Height Start [...] # 45 tablet, 4 Refills, [facility], 167.6, cm, 04/01/22 8:47:00 EDT, Height Start Date: 06/07/22 Status: Ordered fluticasone 50 mcg/inh nasal spray 2 sprays, Nares, Both, Daily, Maintenance, 08/18/22 17:16:00 EDT, [place], Partial fill upon patient request if the [...] mL, 5 Refills, Maintenance, 10/17/22 11:51:00 EST, [facility], Partial fill upon patient [...] 15:00:00 EDT, 04/09/22 15:00:00 EDT, [facility]/pharmacy #1157, 167.6, cm, 04/01/22 8:47:00 EDT, [...] kg... Start Date: 10/18/22 Status: Ordered Pen Cofield, 31 G x 5 mm BD Ultra [...] tablet, 1 Refills, Maintenance, 10/28/22 8:47:00EST, Tablet, [facility]/pharmacy #1157, 165, cm, 10/18/22 16:17:00 EST, Height, 103, kg, 09/19/22 22:30:00EST, Dry Weight Start Date: 10/28/22 Stop Date: 04/26/23 Status: Ordered tamsulosin 0.4 mg oral capsule See Instructions, TAKE 1 CAPSULE BY MOUTH DAILY 30 MINUTES AFTER THE SAME MEAL, # 90 capsule, Refills 1, Maintenance, 11/08/22 11:58:00 EST, Instructions Replace Required Details, Route to Pharmacy Electronically, [facility] 96724, 165, cm, 10/18/22 16... Start Date: 11/08/22 [...] Care Nurse Name: Luciano Hernandez MD Position: [facility] Renal MD Member Role: Lifetime Consulting Physician Address: Address: [address] [facility] [address] [facility] [place] [address]- [place] Name: Brennan Tyson MD Position: [facility] Primary Care Physician Member Role: PCP Address: Address: [address] [place] [address]- Name: Roxy Akers RN Position: S RN Member Role: Primary Care Nurse Name: Flores [facility] RN Position: S RN Member Role: Primary Care Nurse Name: Fabiana Hairston RN Position: S RN Member Role: Primary Care Nurse Care Team Related Persons Name: PRABHAKAR JACINTO Address: home [address] [place] [address] Name: KANG JACINTO Name: JOSE SHAW Address: [place] [address] Name: ANUM DUBOSE Address: home [address] [place] [address]
--- OUTSIDE RECORDS SUMMARY | 2023-08-20 10:48 | XMS_ITS | Continuity of Care Document ---
Author Name Unknown Organization [facility] Address [address] [place] [address]- Care Team Providers Care Director Ambulatory Name Role Phone Brennan Tyson MD Primary Care Physician [phone] [facility] 10[facility]22 - 11/10/22 [facility] [address] [place] [address]- Allergies, Adverse Reactions, Alerts Substance Reaction Severity [...] [08/12/2018] [facility] [id number] 2Result Comment: [08/12/2018] [facility] 3151-0371-45 Medications Advair Diskus 500 mcg-50 mcg inhalation [...] tablet, 1 Refills, Maintenance, 07/08/22 0:13:00 EDT, [facility] ST[facility] 96201, 167.6, cm, 06/18/22 14:40:00 EDT, Height Start Date: 07/08/22 Status: Ordered buPROPion 150 mg/24 hours (XL) oral tablet, extended release 1 tablet = 150 mg, By Mouth, Every 24 hours, # 14 tablet, 0 Refills, Maintenance, 10/18/22 17:03:00EST, [facility]/pharmacy #1157, Partial fill upon patient request [...] Refills, Maintenance, 10/20/22 11:47:00 EST, ER Tablet, [facility]/pharmacy #1157, Partial fill upon patient request if the prescription is for a... Start Date: 10/20/22 Status: Ordered carvedilol 25 mg oral tablet 1, tablet, By Mouth, 2 times a day, # 180 tablet, Refills 3, Route to Pharmacy Electronically, [facility], 167.6, cm, 11/21/21 9:53:00 EST, Height Start [...] Mouth, Daily, # 45 tablet, 4 Refills, [facility] 40655, 167.6, cm, 04/01/22 8:47:00 EDT, Height Start Date: 06/07/22 Status: Ordered fluticasone 50 mcg/inh nasal spray 2 sprays, Nares, Both, Daily, Maintenance, 08/18/22 17:16:00 EDT, [place], Partial fill upon patient request if the [...] mL, 5 Refills, Maintenance, 10/17/22 11:51:00 EST, [facility], Partial fill upon patient [...] Stop 04/04/23 15:00:00 EDT, 04/09/22 15:00:00 EDT, [facility]/pharmacy #1157, 167.6, cm, 04/01/22 8:47:00 EDT, [...] kg... Start Date: 10/18/22 Status: Ordered Pen Regina, 31 G x 5 mm BD Ultra [...] tablet, 1 Refills, Maintenance, 10/28/22 8:47:00EST, Tablet, [facility]/pharmacy #1157, 165, cm, 10/18/22 16:17:00 EST, Height, 103, kg, 09/19/22 22:30:00EST, Dry Weight Start Date: 10/28/22 Stop Date: 04/26/23 Status: Ordered tamsulosin 0.4 mg oral capsule See Instructions, TAKE 1 CAPSULE BY MOUTH DAILY 30 MINUTES AFTER THE SAME MEAL, # 90 capsule, Refills 1, Maintenance, 11/08/22 11:58:00 EST, Instructions Replace Required Details, Route to Pharmacy Electronically, [facility], 165, cm, 10/18/22 16... Start Date: 11/08/22 [...] Care Nurse Name: Luciano Hernandez MD Position: [facility] Renal MD Member Role: Lifetime Consulting Physician Address: Address: [address] [place] [address] [address] [facility] [place] [address]- Name: Brennan Tyson MD Position: [facility] Primary Care Physician Member Role: PCP Address: Address: [address] [place] [address]- Name: Roxy Akers RN Position: S RN Member Role: Primary Care Nurse Name: Flores Freeman RN Position: [facility] RN Member Role: Primary Care Nurse Name: Fabiana Hairston RN Position: [facility] RN Member Role: Primary Care Nurse Care Team Related Persons Name: PRABHAKAR JACINTO Address: home [address] [place] [address] Name: RUBY JACINTO Name: JOSE SHAW Address: [place] [address] Name: ANUM DUBOSE Address: home [address] [place] [address]
--- OUTSIDE RECORDS SUMMARY | 2023-08-20 10:48 | XMS_ITS | Continuity of Care Document ---
Author Name Unknown Organization [facility] ter Address [address] [place] [address]- Care Team Providers Care Newspaper Manager Name Role Phone Brennan Tyson MD Primary Care Physician [phone] [facility] - 10/08/[address] [address] Attending Physician: Brennan Tyson MD Allergies, Adverse [...] 10/20/13 Given 1Result Comment: [08/12/2018] [facility] [id number] 2Result Comment: [08/12/2018] [facility] [id number] Medications Advair Diskus 500 mcg-50 mcg inhalation powder 1 puffs, Inhalation, 2 times a day, # 180 each, 0 Refills, Maintenance, Powder Start Date: 10/23/12 Status: Ordered amLODIPine 10 mg oral tablet 10 mg, 1, tablet, By Mouth, Daily, # 90 tablet, Refills 3, Tot. Refills 3, Maintenance, 12/30/18 13:42:36 EDT, Route to Pharmacy Electronically, [id number], [facility]/pharmacy #1157 Start Date: 12/30/18 Stop Date: [...] 06/17/19 6:49:21 EDT, Route to Pharmacy Electronically, [id number], [facility]/pharmacy #1157 Start Date: 06/17/19 Status: Ordered [...] 10/07/18 8:59:29 EST, Route to Pharmacy Electronically, [id number], [facility]/pharmacy #1157 Start Date: 10/07/18 Status: Ordered LORazepam 0.5 mg oral tablet 1 tablet = 0.5 mg, By Mouth, Daily, PRN as needed for anxiety, for 30 days, # 30 tablet, 2 Refills,Acute 01/06/20 7:47:00 EDT, 10/08/19 7:47:00 EST, Tablet, [facility]/pharmacy #1157, 167.6, cm, 10/08/19 7:00:00 EST, [...] 04/08/19 14:06:58 EDT, Route to Pharmacy Electronically, [id number], [facility] Start Date: 04/08/19 Status: Ordered [...]
--- OUTSIDE RECORDS SUMMARY | 2023-08-20 10:48 | XMS_ITS | Continuity of Care Document ---
Author Name Unknown Organization [facility] Address [address] [place] [address]- Care Team Providers Care Customer Support Consultant Name Role Phone Brennan Tyson MD Primary Care Physician [phone] Encounter [facility] Date(s): 07/02/23 - 07/09/23 [facility] [address] [place] [address]- Encounter Diagnosis Heart failure with reduced ejection fraction(Discharge Diagnosis) - 07/03/23 Attending Physician: Brennan Tyson MD Allergies, Adverse Reactions, Alerts Substance Reaction Severity Status labetalol Active tetanus toxoid Active HORSE SERUM PROTEINS AB.IGE.RAST CLASS Active Immunizations Given and Recorded Vaccine Date Status Refusal Reason influenza virus vaccine, inactivated 06/28/23 Alexx rded [...] Comment: [08/12/2018] [facility] [id number] 2Result Comment: [08/12/2018] [facility] [id number] Medications Advair Diskus 500 mcg-50 mcg inhalation [...] 10:47:00 EDT, Route to Pharmacy Electronically, [facility], Partial fill upon patient request if the prescription is for a schedule II opioi... Start Date: 03/27/23 Status: Ordered atorvastatin 40 mg oral tablet 1 tablet, By Mouth, Daily, # 90 tablet, 1 Refills, Maintenance, 02/22/23 10:19:00 EDT, [facility] STORE 28366, 165, cm, 02/21/23 9:40:00 EDT, Height, 85, kg, 01/15/23 14:55:00 EDT, Dry Weight Start Date: 02/22/23 Status: Ordered bumetanide 1 mg oral tablet 1, tablet, By Mouth, Daily, # 90 tablet, Refills 1, Maintenance, 07/02/23 15:49:00 EDT, Route to Pharmacy Electronically, [facility] STORE 48194, 167.6, cm, 07/02/23 13:44:00 EDT, Height, 85, kg, 01/15/23 14:55:00 EDT, Dry Weight Start Date: 07/02/23 Status: Ordered carvedilol 25 mg oral tablet 1, tablet, By Mouth, 2 times a day, # 180 tablet, Refills 3, Maintenance, 02/26/23 16:11:00 EDT, Route to Pharmacy Electronically, [facility] STORE 53504, 165, cm, 02/21/23 9:40:00 EDT, Height, 85, kg, 01/15/23 14:55:00 EDT, Dry Weight Start Date: 02/26/23 Status: Ordered duloxetine 30 mg oral enteric coated capsule See Instructions, 1 capsule daily for 2 weeks and then 1 capsule every other day for 2 weeks and then stop., # 21 capsule, 0 Refills, Maintenance, 07/09/23 15:44:00 EDT, [facility]/pharmacy #1157, Partial fill upon patient request if the prescription is for... Start Date: 07/09/23 Status: Ordered duloxetine 60 mg oral enteric coated capsule 1 capsule, By Mouth, Daily, # 90 capsule, 3 Refills, Maintenance, 07/02/23 15:49:00 EDT, [facility] STORE 35949, 167.6, cm, 07/02/23 13:44:00 EDT, Height, 85, kg, 01/15/23 14:55:00 EDT, Dry Weight Start Date: 07/02/23 Status: Ordered fenofibrate 160 mg oral tablet 0.5 tablet, By Mouth, Daily, # 45 tablet, 0 Refills, Maintenance, 06/10/23 0:49:00 EDT, [facility], 167.6, cm, 04/11/23 8:40:00 EDT, Height, 85, kg, 01/15/23 14:55:00 EDT, Dry Weight Start Date: 06/10/23 Status: Ordered fluticasone 50 mcg/inh nasal spray 2 sprays, Nares, Both, Daily, Maintenance, 08/18/22 17:16:00 EDT, [place], Partial fill upon patient request if the [...] 30 tablet, 1 Refills, Maintenance,02/21/23 10:02:00 EDT, [facility]/pharmacy #1157, Partial fill upon patient request if [...] Refills, Maintenance, 06/19/23 16:44:00 EDT, [facility], 167.6, cm, 04/11/23 8:40:00 EDT, Height, 85, [...] kg... Start Date: 10/18/22 Status: Ordered Pen [place], 31 G x 5 mm BD Ultra [...] 10:46:00 EDT, Route to Pharmacy Electronically, [facility], Partial fill upon patient request if the prescription is for a schedule II opioi... Start Date: 03/27/23 Status: Ordered Potassium Chloride (Xqe-Ustp-Vhv 10) 10 mEq oral tablet, extended release 1 tablet, By Mouth, Daily, # 90 tablet, 3 Refills, Maintenance, 07/02/23 15:49:00 EDT, [facility], 167.6, cm, 07/02/23 13:44:00 EDT, Height, 85, [...] Refills, Maintenance, 07/02/23 15:49:00 EDT, [facility], 167.6, cm, 07/02/23 13:44:00 EDT, Height, 85, [...] #1157, 16... Start Date: 05/22/23 Status: Ordered traMADol 50 mg oral tablet 1 tablet = 50 mg, By Mouth, Every 6 hours, for 7 days, # 28 tablet, 3 Refills, Acute 07/31/23 9:12:00 EDT, 07/03/23 9:12:00 EDT, [facility]/pharmacy #1157, Partial fill upon patient request if the prescription is for a schedule II opioid drug., 167.6, cm, 09... Start Date: 07/03/23 Stop Date: 07/31/23 Status: Ordered traZODone 50 mg oral tablet [...] mL, 1 Refills, Maintenance, 07/02/23 14:05:00 EDT, [facility]/pharmacy #1157, Partial fill upon patient request if the prescription is for a schedule II opioid drug., 1 drops Eye, Left Every 8 hours, 167.6, cm, 07/02/... Start Date: 07/02/23 Status: Ordered Problem List [...] Dates Health Status Cl inical Service Informant Heart failure with reduced ejection fraction Discharge Diagnosis 07/03/23 Vital Signs Most recent to oldest [Reference Range]: 1 Height 167.6 cm (07/02/23 1:44 PM) Weight 90.7 kg (07/02/23 1:44 PM) Oxygen Saturation [94-100 %] 94 % (07/02/23 1:44 PM) Pulse Rate [55-90 bpm] 77 bpm (07/02/23 1:44 PM) Body Mass Index [18.5-24.99 kg/m2] 32.29 kg/m2 *>HHI* (07/02/23 1:44 PM) Blood Pressure [90-138/55-84 mm Hg] 139/ 88mm Hg *H* (07/02/23 1:44 PM) Blood pressure sites Arm, left (07/02/23 1:44 PM) Social History Social History Type Response Smoking Status Former smoker; Type: Cigarettes; Other: quit 2006; entered on: 09/19/17 Sex Patient Care team information Care Team Personnel Name: Sonny Silverman RN Position: [facility] RN Member Role: Primary Care Nurse Name: Luciano Hernandez MD Position: [facility] Renal MD Member Role: Lifetime Consulting Physician Address: Address: [address] [place] [address] [address] [facility] [place] [address]- Name: Brennan Tyson MD Position: [facility] Physician - Primary Care Member Role: PCP Address: Address: [address] [place] [address]- Name: Teresa Boyd [place] Position: [facility] DAPHNE Count Room Clerk Member Role: Mapping Specialist Name: Roxy Akers RN Position: [facility] [place]HA Nurse Member Role: Primary Care Nurse Name: Flores Freeman RN Position: [facility] RN Member Role: Primary Care Nurse Care Team Related Persons Name: PRABHAKAR JACINTO Address: [address] [place] [address] Name: KANG JACINTO Name: JOSE SHAW Address: [place] [address] Name: ANUM DUBOSE Address: home [address] [place] [address]
--- OUTSIDE RECORDS SUMMARY | 2023-08-20 10:48 | XMS_ITS | Continuity of Care Document ---
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 [id number] 2Result Comment: [08/12/2018] [facility] 8850-6982-02 Medications Advair Diskus 500 mcg-50 mcg inhalation [...] tablet, 1 Refills, Maintenance, 07/08/22 0:13:00 EDT, [facility] STORE 57278, 167.6, cm, 06/18/22 14:40:00 EDT, Height Start Date: 07/08/22 Status: Ordered carvedilol 25 mg oral tablet 1, tablet, By Mouth, 2 times a day, # 180 tablet, Refills 3, Route to Pharmacy Electronically, [facility] STORE 70777, 167.6, cm, 11/21/21 9:53:00 EST, Height Start [...] a day, # 180 tablet, 5 Refills, [facility] STORE 34298, 167.6, cm, 11/21/21 9:53:00 EST, Height Start Date: 02/05/22 Status: Ordered fenofibrate 160 mg oral tablet 0.5 tablet, By Mouth, Daily, # 45 tablet, 4 Refills, [facility] STORE 53577, 167.6, cm, 04/01/22 8:47:00 EDT, Height Start Date: 06/07/22 Status: Ordered fluticasone 50 mcg/inh nasal spray 2 sprays, Nares, Both, Daily, Maintenance, 08/18/22 17:16:00 EDT, [facility], Partial fill upon patient request if the [...] Stop 04/04/23 15:00:00 EDT, 04/09/22 15:00:00 EDT, [facility]/pharmacy #1157, 167.6, cm, 04/01/22 [...] Start Date: 11/04/18 Status: Ordered Potassium Chloride (Dns-Qehj-Tpt 10) 10 mEq oral tablet, extended release 1 tablet, By Mouth, Daily, # 90 tablet, 3 Refills, [facility] STORE 18432, 167.6, cm, 06/06/21 9:25:00 EDT, Height, 90.7, [...] bedtime, # 180 tablet, 1 Refills, Maintenance, 03/05/21 12:40:00 EST, Tablet, [facility]/pharmacy #1157, 167.6, cm, 11/28/20 10:41:00 EST, Height, 90.7, kg, 09/08/19 8:17:00 EST, Dry Weight Start Date: 12/22/20 Stop Date: 06/20/21 Status: Ordered tamsulosin 0.4 mg oral capsule See Instructions, TAKE 1 CAPSULE BY MOUTH DAILY 30 MINUTES AFTER THE SAME MEAL, # 90 capsule, Refills 1, Instructions Replace Required Details, Route to Pharmacy Electronically, [facility] STORE 87473, 167.6, cm, 02/22/22 7:57:00 EDT, Height Start [...] Effective Dates Health Status Clinical Service Informant Hypertension Discharge Diagnosis 09/08/22 COPD exacerbation Discharge Diagnosis 09/08/22 Major depression in partial remission Discharge Diagnosis 09/08/22 Vital Signs Most recent to oldest [Reference Range]: 1 2 Height 168 cm (09/06/22 12:46 PM) 168 cm (09/06/22 11:16 AM) Weight 96.4 kg (09/06/22 11:16 AM) Pulse Rate [55-90 bpm] 62 bpm (09/06/22 11:16 AM) Body Mass Index [18.5-24.99 kg/m2] 34.16 kg/m2 *>HHI* (09/06/22 11:16 AM) Blood Pressure [90-138/55-84 mm Hg] 158/ 99mm Hg *H* (09/06/22 12:46 PM) 200/91mm Hg *H* (09/06/22 11:16 AM) Blood pressure sites Arm, left (09/06/22 12:46 PM) Arm, left (09/06/22 11:16 AM) Social History Social History Type Response Smoking Status Former smoker; Type: Cigarettes; Other: quit 2006; entered on: 09/19/17 Sex Note * Orly Virgen: PERFORM, SIGN, VERIFY Event Display: Patient Education/Instruction Authored Date: [id number] [facility] Clinical Summary Name ROLDAN JACINTO Age 72 Years 1950 PCP Brennan Tyson MD PCP Visit Date 09/06/2022 10:52:00 Additional Instructions: Scheduled Appointments?? Future Appointments ?*BMP??[place]Adlt ?[address],[facility] ?Phone:??--?Fax:??-- ?Appt. Date:??10/02/2022?9:00 AM ?Scheduled Provider:??Brennan Tyson MD Follow-Up Instructions ?? Diagnosis Unspecified osteoarthritis, unspecified site; Spinal stenosis, lumbar region without neurogenic claudication Medications: Please continue your medications until treatment is completed or stopped by your provider. Discuss any questions related to medications with your provider. New Medications - Durable Medical Equipment (Rollator Walker) use daily for all ADL's. Refills: 0. Next Dose: Medications to Continue with No Changes These medications were not printed or sent to your pharmacy apixaban (Eliquis 5 mg oral tablet) 1 tab(s) Oral twice a day. Refills: 5. Next Dose: Aspirin (aspirin 81 mg oral delayed release tablet) 1 tab(s) Oral Daily. Next Dose: Atorvastatin (atorvastatin 40 mg oral tablet) 1 tab(s) Oral Daily. Refills: 1. Next Dose: Carvedilol (carvedilol 25 mg oral tablet) 1 tab(s) Oral twice a day. Refills: 3. Next Dose: Duloxetine (duloxetine 30 mg oral enteric coated capsule) 1 capsule Oral Daily. to be combined [id number] capsule at time of next refill for total daily dose of 90mg. Refills: 11. Next Dose: Duloxetine (duloxetine 60 mg oral enteric coated capsule) 1 capsule Oral Daily. dose increase. Refills: 11. Next Dose: Durable Medical Equipment (CPAP Machine) BiPAP 20/15 cm with a heated humidifier. Recommend ordering a machine with compliance data tracking capabilities and following residual AHI. DX RICKIE G47.33. Refills: 0. Next Dose: Durable Medical Equipment (CPAP Equipment) Cpap supplies- mask, tubing, filters, headgear, water chamber, chin strap dx RICKIE G47.33. Refills: 11. Next Dose: Durable Medical Equipment (One Touch Delica Lancets) 1 box = 100 lancets Check blood sugar bid icd 10 E11.9. Refills: 1. Next Dose: Durable Medical Equipment (One Touch Verio glucometer) Test glucose levels bid Use with One Touch test strips and lancets ICD 10 E11.9. Refills: 0. Next Dose: Durable Medical Equipment (One Touch Verio test strips) Use with One Touch Verio glucometer to check glucose bid ICD 10 E 11.9. Refills: 11. Next Dose: Fenofibrate (fenofibrate 160 mg oral tablet) 0.5 tab(s) Oral Daily. Refills: 4. Next Dose: Fluticasone Nasal (fluticasone 50 mcg/inh nasal spray) 2 spray(s) Nares, Both Daily. Next Dose: Fluticasone-Salmeterol (Advair Diskus 500 mcg-50 mcg inhalation powder) 1 puff(s) Inhalation twice a day. Next Dose: Furosemide (furosemide 20 mg oral tablet) 1 tab(s) Oral Daily. Next Dose: Isosorbide Mononitrate (isosorbide mononitrate 30 mg oral tablet, extended release) 1 tab(s) Oral Daily in the morning. Next Dose: Lisinopril (lisinopril 20 mg oral tablet) 2 tab(s) Oral Daily. Next Dose: Lorazepam (LORazepam 0.5 mg oral tablet) 1 tab(s) Oral Daily as needed as needed for anxiety. Next Dose: Minoxidil (minoxidil 2.5 mg oral tablet) 1 tab(s) Oral Daily. Next Dose: Montelukast (montelukast 10 mg oral tablet) 1 tab(s) Oral Daily at Bedtime. Next Dose: Multivitamin With Minerals (Centrum Silver Men's) 1 tab(s) Oral Daily. Next Dose: Nitroglycerin (nitroglycerin 0.4 mg sublingual tablet) 1 tab(s) Sublingual every 5 minutes as needed for chest pain. Refills: 3. Next Dose: Omeprazole (omeprazole 40 mg oral enteric coated capsule) 1 capsule Oral twice a day for 90 Days. Refills: 3. Next Dose: Potassium Chloride (Potassium Chloride (Txo-Aqta-Ecz 10) 10 mEq oral tablet, extended release) 1 tab(s) Oral Daily. Refills: 3. Next Dose: Ropinirole (rOPINIRole 1 mg oral tablet) 2 tab(s) Oral Daily at Bedtime for 90 Days. Refills: 1. Next Dose: Tamsulosin (tamsulosin 0.4 mg oral capsule) TAKE 1 CAPSULE BY MOUTH DAILY 30 MINUTES AFTER THE SAMEMEAL. Refills: 1. Next Dose: umeclidinium (Incruse Ellipta 62.5 mcg/inh inhalation powder) 1 Each Inhalation every 24 hours. doses should be taken at least 24 hours apart. Next Dose: Allergy Info:?? HORSE SERUM PROTEINS AB.IGE.RAST CLASS; tetanus toxoid; labetalol Medications Given This Visit Future Orders ?No future orders Vital Signs Height 168 cm Weight 96.4 kg BMI 34.16 kg/m2 Blood Pressure 200 mm Hg/91 mm Hg Temperature Pulse Rate 62 bpm Respiratory Rate 02 Sat Mode of Delivery / You can now view a summary of your hospital visit from the comfort of your home through a free online portal called [employer]. [employer] is a website that allows you to securely view your medical information including discharge summary, medications and follow-up visits. ??You can alsosend a secure electronic message to your doctor???s office to request appointments, renew medications or just ask a question. You can enroll at [email or web address] or register during your next office [...] primary care provider, you may find a [facility] provider by calling [facility] at [phone]. For information about the plan of care [...] Team Personnel Name: Ruby Hernández RN Position: S RN Member Role: Primary Care Nurse Name: Brennan Tyson MD Position: S Primary Care Physician Member Role: PCP Address: Address: [address] [place], [place] [address] Name: Roxy Akers RN Position: S RN Member Role: Primary Care Nurse Care Team Related Persons Name: PRABHAKAR JACINTO Address: [address] [address] Name: RUBY JACINTO Name: JOSE SHAW Address: [place] [address] Name: ANUM DUBOSE Address: home [address] [place], [place] [id number]
--- OUTSIDE RECORDS SUMMARY | 2023-08-20 10:48 | XMS_ITS | Continuity of Care Document ---
Author Name Unknown Organization [facility] Address [address] [place] [address]- Care Team Providers Care Locomotive Firer Name Role Phone Brennan Tyson MD Primary Care Physician Encounter [facility] Date(s): 12/24/22 - 01/23/23 [facility] [address] [place] [address]- Allergies, Adverse Reactions, Alerts Substance Reaction Severity [...] 10/20/13 Given 1Result Comment: [08/12/2018] [facility] [id number] 2Result Comment: [08/12/2018] [facility] [id number] Medications Advair Diskus 500 mcg-50 mcg inhalation powder 1 puffs, Inhalation, 2 times a day, 0 Refills, Maintenance, 10/23/12 12:03:02 EST, Powder Start Date: 10/23/12 Status: Ordered atorvastatin 40 mg oral tablet 1 tablet, By Mouth, Daily, # 90 tablet, 1 Refills, Maintenance, 07/08/22 0:13:00 EDT, [facility], 167.6, cm, 06/18/22 14:40:00 EDT, Height Start Date: 07/08/22 Status: Ordered carvedilol 25 mg oral tablet 1, tablet, By Mouth, 2 times a day, # 180 tablet, Refills 3, Route to Pharmacy Electronically, [facility], 167.6, cm, 11/21/21 9:53:00 EST, Height Start [...] # 45 tablet, 4 Refills, [facility], 167.6, cm, 04/01/22 8:47:00 EDT, Height Start Date: 06/07/22 Status: Ordered fluticasone 50 mcg/inh nasal spray 2 sprays, Nares, Both, Daily, Maintenance, 08/18/22 17:16:00 EDT, [place], Partial fill upon patient request if the [...] mL, 5 Refills, Maintenance, 10/17/22 11:51:00 EST, [facility], Partial fill upon [...] kg... Start Date: 10/18/22 Status: Ordered Pen [place], 31 G x 5 mm BD Ultra [...] 1 Refills, Maintenance, 10/28/22 8:47:00EST, Tablet, [facility]/pharmacy #1157, 165, cm, 10/18/22 16:17:00 EST, Height, 103, kg, 09/19/22 22:30:00EST, Dry Weight Start Date: 10/28/22 Stop Date: 04/26/23 Status: Ordered tamsulosin 0.4 mg oral capsule See Instructions, TAKE 1 CAPSULE BY MOUTH DAILY 30 MINUTES AFTER THE SAME MEAL, # 90 capsule, Refills 1, Maintenance, 11/08/22 11:58:00 EST, Instructions Replace Required Details, Route to Pharmacy Electronically, [facility] STORE 51874, 165, cm, 10/18/22 16... Start Date: 11/08/22 [...] Team Personnel Name: Nayeli Fernandez RN Position: [facility] RN Member Role: Primary Care Nurse Name: Erin Pendleton RN Position: [facility] RN Member Role: Primary Care Nurse Name: Luciano Hernandez MD Position: [facility] Renal MD Member Role: Lifetime Consulting Physician Address: Address: [address] [place] [address] [address] [facility] [place] [address]- Name: Brennan Tyson MD Position: [facility] Primary Care Physician Member Role: PCP Address: Address: [address] [place] [address]- Name: Roxy Akers RN Position: S RN Member Role: Primary Care Nurse Name: Flores Freeman RN Position: S RN Member Role: Primary Care Nurse Name: Fabiana Hairston RN Position: [facility] RN Member Role: Primary Care Nurse Care Team Related Persons Name: PRABHAKAR JACINTO Address: [address] [place] [address] Name: KANG JACINTO Name: JOSE SHAW Address: [place] [address] Name: ANUM DUBOSE Address: home [address] [place] [address]
--- OUTSIDE RECORDS SUMMARY | 2023-08-20 10:48 | XMS_ITS | Continuity of Care Document ---
Author Name Unknown Organization [facility] Adult Address [address] [place] [address]- Care Team Providers Care Electrotherapist Name Role Phone Brennan Tyson MD Primary Care Physician [facility] 06[facility]/23 - 07/24/23 [facility] [address] [place] [address]- Allergies, Adverse Reactions, Alerts Substance Reaction Severity Status labetalol Active tetanus toxoid Active HORSE SERUM PROTEINS AB.IGE.RAST CLASS Active Immunizations Given and Recorded Vaccine Date Status Refusal Reason [id number] bivalent booster vax 07/21/23 Recorded influenza virus [...] Comment: [08/12/2018] [facility] 75216-536-25 2Result Comment: [08/12/2018] [facility] 3745-4644-96 Medications Advair Diskus 500 mcg-50 mcg inhalation [...] 03/27/23 10:47:00 EDT, Route to Pharmacy Electronically, [facility], Partial fill upon patient request if the prescription is for a schedule II opioi... Start Date: 03/27/23 Status: Ordered atorvastatin 40 mg oral tablet 1 tablet, By Mouth, Daily, # 90 tablet, 1 Refills, Maintenance, 07/10/23 18:32:00 EDT, [facility] 40693, 167.6, cm, 07/02/23 13:44:00 EDT, Height, 85, kg, 01/15/23 14:55:00 EDT, Dry Weight Start Date: 07/10/23 Status: Ordered bumetanide 1 mg oral tablet 1, tablet, By Mouth, Daily, # 90 tablet, Refills 1, Maintenance, 07/02/23 15:49:00 EDT, Route to Pharmacy Electronically, [facility]ORE 18298, 167.6, cm, 07/02/23 13:44:00 EDT, Height, 85, kg, 01/15/23 14:55:00 EDT, Dry Weight Start Date: 07/02/23 Status: Ordered carvedilol 25 mg oral tablet 1, tablet, By Mouth, 2 times a day, # 180 tablet, Refills 3, Maintenance, 02/26/23 16:11:00 EDT, Route to Pharmacy Electronically, [facility] STORE 42519, 165, cm, 02/21/23 9:40:00 EDT, Height, 85, kg, 01/15/23 14:55:00 EDT, Dry Weight Start Date: 02/26/23 Status: Ordered duloxetine 30 mg oral enteric coated capsule See Instructions, 1 capsule daily for 2 weeks and then 1 capsule every other day for 2 weeks and then stop., # 21 capsule, 0 Refills, Maintenance, 07/09/23 15:44:00 EDT, [facility]/pharmacy #1157, Partial fill upon patient request if the prescription is for... Start Date: 07/09/23 Status: Ordered duloxetine 60 mg oral enteric coated capsule 1 capsule, By Mouth, Daily, # 90 capsule, 3 Refills, Maintenance, 07/02/23 15:49:00 EDT, [facility]ORE 20122, 167.6, cm, 07/02/23 13:44:00 EDT, Height, 85, kg, 01/15/23 14:55:00 EDT, Dry Weight Start Date: 07/02/23 Status: Ordered fenofibrate 160 mg oral tablet 0.5 tablet, By Mouth, Daily, # 45 tablet, 0 Refills, Maintenance, 06/10/23 0:49:00 EDT, [facility], 167.6, cm, 04/11/23 8:40:00 EDT, Height, 85, kg, 01/15/23 14:55:00 EDT, Dry Weight Start Date: 06/10/23 Status: Ordered fluticasone 50 mcg/inh nasal spray 2 sprays, Nares, Both, Daily, Maintenance, 08/18/22 17:16:00 EDT, [place], Partial fill upon patient request if the [...] tablet, 1 Refills, Maintenance,02/21/23 10:02:00 EDT, [facility]/pharmacy #1157, Partial fill upon patient [...] Refills, Maintenance, 06/19/23 16:44:00 EDT, [facility], 167.6, cm, 04/11/23 8:40:00 EDT, Height, 85, [...] kg... Start Date: 10/18/22 Status: Ordered Pen [place], 31 G x 5 mm BD Ultra [...] 03/27/23 10:46:00 EDT, Route to Pharmacy Electronically, [facility], Partial fill upon patient request if the prescription is for a schedule II opioi... Start Date: 03/27/23 Status: Ordered Potassium Chloride (Our-Azxx-Knp 10) 10 mEq oral tablet, extended release 1 tablet, By Mouth, Daily, # 90 tablet, 3 Refills, Maintenance, 07/02/23 15:49:00 EDT, [facility], 167.6, cm, 07/02/23 13:44:00 EDT, Height, 85, [...] Refills, Maintenance, 07/02/23 15:49:00 EDT, [facility], 167.6, cm, 07/02/23 13:44:00 EDT, Height, 85, [...] Acute 07/31/23 9:12:00 EDT, 07/03/23 9:12:00 EDT, [facility]/pharmacy #1157, Partial fill upon patient [...] 1 Refills, Maintenance, 07/02/23 14:05:00 EDT, [facility]/pharmacy #1157, Partial fill upon patient [...] Personnel Name: Nayeli Fernandez RN Position: [facility] RN Member Role: Primary Care Nurse Name: Sonny Silverman RN Position: [facility] RN Member Role: Primary Care Nurse Name: Luciano Hernandez MD Position: [facility] Renal MD Member Role: Lifetime Consulting Physician Address: Address: [address] [facility], [place] [address]- [place] Name: Brennan Tyson MD Position: [facility] Physician - Primary Care Member Role: PCP Address: Address: [address] [place] [address]- [place] Name: Teresa Boyd [place] Position: [facility] Marketing Operations Coordinator Member Role: Parking Enforcement Officer Name: Roxy Akers RN Position: [facility] AMB Nurse Member Role: Primary Care Nurse Name: Flores Freeman RN Position: [facility] RN Member Role: Primary Care Nurse Care Team Related Persons Name: PRABHAKAR JACINTO Address: home [address] [place] [address] Name: KANG JACINTO Name: JOSE SHAW Address: [place] [address] Name: ANUM DUBOSE Address: home [address] [place] [address]
--- OUTSIDE RECORDS SUMMARY | 2023-08-20 10:48 | XMS_ITS | Continuity of Care Document ---
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) - 12/27/22 Attending Physician: Brennan Tyson MD Allergies, Adverse [...] [08/12/2018] [facility] [id number] 2Result Comment: [08/12/2018] [facility] 4312-8835-29 Medications Advair Diskus 500 mcg-50 mcg inhalation powder 1 puffs, Inhalation, 2 times a day, 0 Refills, Maintenance, 10/23/12 12:03:02 EST, Powder Start Date: 10/23/12 Status: Ordered atorvastatin 40 mg oral tablet 1 tablet, By Mouth, Daily, # 90 tablet, 1 Refills, Maintenance, 07/08/22 0:13:00 EDT, [facility] 95324, 167.6, cm, 06/18/22 14:40:00 EDT, Height Start Date: 07/08/22 Status: Ordered carvedilol 25 mg oral tablet 1, tablet, By Mouth, 2 times a day, # 180 tablet, Refills 3, Route to Pharmacy Electronically, [facility], 167.6, cm, 11/21/21 9:53:00 EST, Height Start [...] Mouth, Daily, # 45 tablet, 4 Refills, [facility] STORE 02225, 167.6, cm, 04/01/22 8:47:00 EDT, Height Start Date: 06/07/22 Status: Ordered fluticasone 50 mcg/inh nasal spray 2 sprays, Nares, Both, Daily, Maintenance, 08/18/22 17:16:00 EDT, [place], Partial fill upon patient request if the [...] mL, 5 Refills, Maintenance, 10/17/22 11:51:00 EST, [facility], Partial fill upon patient [...] Stop 04/04/23 15:00:00 EDT, 04/09/22 15:00:00 EDT, [facility]/pharmacy #1157, 167.6, cm, 04/01/22 8:47:00 [...] kg... Start Date: 10/18/22 Status: Ordered Pen [place], 31 G x 5 mm BD Ultra [...] tablet, 1 Refills, Maintenance, 10/28/22 8:47:00EST, Tablet, [facility]/pharmacy #1157, 165, cm, 10/18/22 16:17:00 EST, Height, 103, kg, 09/19/22 22:30:00EST, Dry Weight Start Date: 10/28/22 Stop Date: 04/26/23 Status: Ordered tamsulosin 0.4 mg oral capsule See Instructions, TAKE 1 CAPSULE BY MOUTH DAILY 30 MINUTES AFTER THE SAME MEAL, # 90 capsule, Refills 1, Maintenance, 11/08/22 11:58:00 EST, Instructions Replace Required Details, Route to Pharmacy Electronically, [facility] STORE 63604, 165, cm, 10/18/22 16... Start Date: 11/08/22 [...] Major depression in partial remission Discharge Diagnosis 12/27/22 Vital Signs Most recent to oldest [Reference Range]: 1 Height 165 cm (12/27/22 10:25 AM) Weight 84.0 kg (12/27/22 10:25 AM) Oxygen Saturation [94-100 %] 93 % *L* (12/27/22 10:25 AM) Pulse Rate [55-90 bpm] 65 bpm (12/27/22 10:25 AM) Body Mass Index [18.5-24.99 kg/m2] 30.85 kg/m2 *>HHI* (12/27/22 10:25 AM) Blood Pressure [90-138/55-84 mm Hg] 135/ 78mm Hg (12/27/22 10:25 AM) Blood pressure sites Arm, left (12/27/22 10:25 AM) Social History Social History Type Response Smoking Status Former smoker; Type: Cigarettes; Other: quit 2006; entered on: 09/19/17 Sex Note * Sera Pineda [place]: PERFORM, SIGN, VERIFY Event Display: Patient Education/Instruction Authored Date: [id number] [facility] *ELVIS Mei Clinical Summary Name ROLDAN JACINTO Age 72 Years 1950 PCP Marbella RINCON, Brennan PCP Visit Date 12/27/2022 10:19:00 Additional Instructions: Scheduled Appointments?? Future Appointments ?No Future Appointments Scheduled Follow-Up Instructions ?? Diagnosis Medications: Please continue your medications until treatment is completed or stopped by your provider. Discuss any questions related to medications with your provider. Medications to Continue Taking That Have Changed These medications were not printed or sent to your pharmacy - Durable Medical Equipment (Insulin Syringe, BD Ultra-Fine 1 cc 31 G x 8 mm (5/16in)) To use as directed for heparin injections three times daily. Refills: 5. Next Dose: - Durable Medical Equipment (One Touch Delica [...] 10 E 11.9. Refills: 3. Next Dose: - Durable Medical Equipment (Pen M[place], 31 G x 5 mm BD Ultra Fine III) use as directed three times daily for heparin injections. Refills: 5. Next Dose: - Durable Medical Equipment (Rollator Walker) use daily for all ADL's. Refills: 0. Next Dose: Medications to Continue with No Changes These medications were not printed or sent to your pharmacy Atorvastatin (atorvastatin 40 mg oral tablet) 1 tab(s) Oral Daily. Refills: 1. Next Dose: Carvedilol (carvedilol 25 mg oral tablet) 1 tab(s) Oral twice a day. Refills: 3. Next Dose: Cholecalciferol (cholecalciferol 2000 intl units oral tablet) Oral Daily. Next Dose: Duloxetine (duloxetine 60 mg oral enteric coated capsule) 1 capsule Oral Daily. Next Dose: Fenofibrate (fenofibrate 160 [...] Oral Daily in the morning. Next Dose: Melatonin (melatonin 3 mg oral [...] at least 24 hours apart. Next Dose: No Longer Take the Following Medications Aspirin (aspirin 81 mg oral delayed release tablet) 1 tab(s) Oral Daily. BuPROpion (buPROPion 150 mg/24 hours (XL) oral tablet, extended release) 1 tab(s) Oral every 24 hours for 14 Days. Refills: 0. BuPROpion (buPROPion 300 mg/24 hours (XL) oral tablet, extended release) 1 tab(s) Oral Daily. Only to be started after the first 2 weeks of 150 mg daily. Refills: 11. Allergy Info:?? HORSE SERUM PROTEINS AB.IGE.RAST CLASS; tetanus toxoid; labetalol Medications Given This Visit Future Orders ?No future orders Vital Signs Height 165 cm Weight 84.0 kg BMI 30.85 kg/m2 Blood Pressure 135 mm Hg/78 mm Hg Temperature Pulse Rate 65 bpm Respiratory Rate 02 Sat Mode of Delivery 93 %/ You can now view a summary of your hospital visit from the comfort of your home through a free online portal called [employer]. [employer] is a website that allows you to securely view your medical information including discharge summary, medications and follow-up visits. ??You can alsosend a secure electronic message to your doctor???s office to request appointments, renew medications or just ask a question. You can enroll at [email or web address] or register during your next office [...] primary care provider, you may find a [facility] provider by calling [facility] at [phone]. For information about the plan of care [...] Team Personnel Name: Nayeli Fernandez RN Position: [facility] RN Member Role: Primary Care Nurse Name: Erin Pendleton RN Position: S RN Member Role: Primary Care Nurse Name: Luciano Hernandez MD Position: [facility] Renal MD Member Role: Lifetime Consulting Physician Address: Address: [address] [facility], [place] [address]- [place] Name: Brennan Tyson MD Position: [facility] Primary Care Physician Member Role: PCP Address: Address: [address] [place] [address]- [place] Name: Roxy Akers RN Position: [facility] RN Member Role: Primary Care Nurse Name: Flores Freeman RN Position: [facility] RN Member Role: Primary Care Nurse Name: Fabiana Hairston RN Position: [facility] RN Member Role: Primary Care Nurse Care Team Related Persons Name: PRABHAKAR JACINTO Address: [address] [place] [address] Name: KANG JACINTO Name: JOSE SHAW Address: [place] [address] Name: ANUM DUBOSE Address: home [address] [place] [address]
--- OUTSIDE RECORDS SUMMARY | 2023-08-20 10:48 | XMS_ITS | Continuity of Care Document ---
Author Name Unknown Organization [facility] Adult Address [address] [place] [address]- Care Team Providers Care Receivable Executive Name Role Phone Brennan Tyson MD Primary Care Physician [phone] [facility] 07/[facility]23 - 08/08/23 [facility] [address] [place] [address]- Allergies, Adverse Reactions, Alerts Substance Reaction Severity Status labetalol Active tetanus toxoid Active HORSE SERUM PROTEINS AB.IGE.RAST CLASS Active Immunizations Given and Recorded Vaccine Date Status Refusal Reason [id number] bivalent booster vax 07/21/23 Recorded influenza virus [...] Comment: [08/12/2018] [facility] [id number] 2Result Comment: [08/12/2018] [facility] [id number] Medications Advair Diskus 500 mcg-50 mcg inhalation [...] 03/27/23 10:47:00 EDT, Route to Pharmacy Electronically, [facility], Partial fill upon patient request if the prescription is for a schedule II opioi... Start Date: 03/27/23 Status: Ordered atorvastatin 40 mg oral tablet 1 tablet, By Mouth, Daily, # 90 tablet, 1 Refills, Maintenance, 07/10/23 18:32:00 EDT, [facility] 011[facility], 167.6, cm, 07/02/23 13:44:00 EDT, Height, 85, kg, 01/15/23 14:55:00 EDT, Dry Weight Start Date: 07/10/23 Status: Ordered bumetanide 1 mg oral tablet 2 mg, 2, tablet, By Mouth, Daily, # 180 tablet, Refills 1, Maintenance, 07/02/23 15:49:00 EDT, Route to Pharmacy Electronically, [facility] 87295, 167.6, cm, 07/02/23 13:44:00 EDT, Height, 85, kg, 01/15/23 14:55:00 EDT, Dry Weight Start Date: 07/02/23 Status: Ordered carvedilol 25 mg oral tablet 1, tablet, By Mouth, 2 times a day, # 180 tablet, Refills 3, Maintenance, 02/26/23 16:11:00 EDT, Route to Pharmacy Electronically, [facility], 165, cm, 02/21/23 9:40:00 EDT, Height, 85, kg, 01/15/23 14:55:00 EDT, Dry Weight Start Date: 02/26/23 Status: Ordered duloxetine 30 mg oral enteric coated capsule See Instructions, 1 capsule daily for 2 weeks and then 1 capsule every other day for 2 weeks and then stop., # 21 capsule, 0 Refills, Maintenance, 07/09/23 15:44:00 EDT, [facility]/pharmacy #1157, Partial fill upon patient request if the prescription is for... Start Date: 07/09/23 Status: Ordered duloxetine 60 mg oral enteric coated capsule 1 capsule, By Mouth, Daily, # 90 capsule, 3 Refills, Maintenance, 07/02/23 15:49:00 EDT, [facility] 16169, 167.6, cm, 07/02/23 13:44:00 EDT, Height, 85, kg, 01/15/23 14:55:00 EDT, Dry Weight Start Date: 07/02/23 Status: Ordered fenofibrate 160 mg oral tablet 0.5 tablet, By Mouth, Daily, # 45 tablet, 0 Refills, Maintenance, 06/10/23 0:49:00 EDT, [facility], 167.6, cm, 04/11/23 8:40:00 EDT, Height, 85, kg, 01/15/23 14:55:00 EDT, Dry Weight Start Date: 06/10/23 Status: Ordered fluticasone 50 mcg/inh nasal spray 2 sprays, Nares, Both, Daily, Maintenance, 08/18/22 17:16:00 EDT, [place], Partial fill upon patient request if the [...] tablet, 1 Refills, Maintenance,02/21/23 10:02:00 EDT, [facility]/pharmacy #1157, Partial [...] Refills, Maintenance, 06/19/23 16:44:00 EDT, [facility], 167.6, cm, 04/11/23 8:40:00 EDT, Height, 85, [...] kg... Start Date: 10/18/22 Status: Ordered Pen [place], 31 G x 5 mm BD Ultra [...] 03/27/23 10:46:00 EDT, Route to Pharmacy Electronically, [facility], Partial fill upon patient request if the prescription is for a schedule II opioi... Start Date: 03/27/23 Status: Ordered Potassium Chloride (Yox-Fejb-Sqw 10) 10 mEq oral tablet, extended release 1 tablet, By Mouth, Daily, # 90 tablet, 3 Refills, Maintenance, 07/02/23 15:49:00 EDT, [facility], 167.6, cm, 07/02/23 13:44:00 EDT, Height, 85, [...] Refills, Maintenance, 07/02/23 15:49:00 EDT, [facility], 167.6, cm, 07/02/23 13:44:00 EDT, Height, 85, kg, 01/15/23 14:55:00 EDT, Dry Weight Start Date: 07/02/23 Status: Ordered tamsulosin 0.4 mg oral capsule See Instructions, TAKE 1 CAPSULE BY MOUTH DAILY 30 MINUTES AFTER THE SAME MEAL, # 90 capsule, Refills 1, Tot. Refills 1, Maintenance, 05/22/23 9:00:00 EDT, Instructions Replace Required Details, Route to Pharmacy Electronically, [facility]/pharmacy #1157, 16... Start Date: 05/22/23 [...] 1 Refills, Maintenance, 07/02/23 14:05:00 EDT, [facility]/pharmacy #6927, Partial fill upon patient request if the [...] Team Personnel Name: Nayeli Fernandez RN Position: [facility] RN Member Role: Primary Care Nurse Name: Sonny Silverman RN Position: [facility] RN Member Role: Primary Care Nurse Name: Luciano Hernandez MD Position: [facility] Renal MD Member Role: Lifetime Consulting Physician Address: Address: [address] [place] [address] [address] [facility] [place], [place] [address]- Name: Brennan Tyson MD Position: [facility] Physician - Primary Care Member Role: PCP Address: Address: [address] [place] [address]- Name: Teresa Boyd [place] Position: [facility] Valve Assembler Member Role: Youth Director Name: Roxy Akers RN Position: [facility] Nurse Member Role: Primary Care Nurse Name: Flores Freeman RN Position: [facility] RN Member Role: Primary Care Nurse Care Team Related Persons Name: PRABHAKAR JACINTO Address: [address] [place] [address] Name: KANG JACINTO Name: JOSE SHAW Address: [place] [address] Name: ANUM DUBOSE Address: home [address] [place] [address]
--- OUTSIDE RECORDS SUMMARY | 2023-08-20 10:49 | XMS_ITS | Continuity of Care Document ---
Author Name Unknown Organization [facility] Adult Address [address] [place] [address]- Care Team Providers Care Gis Coordinator Name Role Phone Brennan Tyson MD Primary Care Physician [facility]): 07/02/23 - 08/01/23 [facility] [address] [place] [address]- Allergies, Adverse Reactions, Alerts Substance Reaction Severity Status labetalol Active tetanus toxoid Active HORSE SERUM PROTEINS AB.IGE.RAST CLASS Active Immunizations Given and Recorded Vaccine Date Status Refusal Reason [id number] bivalent booster vax 07/21/23 Recorded influenza virus [...] tetanus/diphtheria/pertussis, acel(Tdap) 10/20/13 Given 1Result Comment: [08/12/2018] [facility] [id number] 2Result Comment: [08/12/2018] [facility] 8699-4234-11 Medications Advair Diskus 500 mcg-50 mcg inhalation [...] 03/27/23 10:47:00 EDT, Route to Pharmacy Electronically, [facility], Partial fill upon patient request if the prescription is for a schedule II opioi... Start Date: 03/27/23 Status: Ordered atorvastatin 40 mg oral tablet 1 tablet, By Mouth, Daily, # 90 tablet, 1 Refills, Maintenance, 07/10/23 18:32:00 EDT, [facility] STORE 65515, 167.6, cm, 07/02/23 13:44:00 EDT, Height, 85, kg, 01/15/23 14:55:00 EDT, Dry Weight Start Date: 07/10/23 Status: Ordered bumetanide 1 mg oral tablet 2 mg, 2, tablet, By Mouth, Daily, # 180 tablet, Refills 1, Maintenance, 07/02/23 15:49:00 EDT, Route to Pharmacy Electronically, [facility] STORE 25193, 167.6, cm, 07/02/23 13:44:00 EDT, Height, 85, kg, 01/15/23 14:55:00 EDT, Dry Weight Start Date: 07/02/23 Status: Ordered carvedilol 25 mg oral tablet 1, tablet, By Mouth, 2 times a day, # 180 tablet, Refills 3, Maintenance, 02/26/23 16:11:00 EDT, Route to Pharmacy Electronically, [facility] STORE 66438, 165, cm, 02/21/23 9:40:00 EDT, Height, 85, kg, 01/15/23 14:55:00 EDT, Dry Weight Start Date: 02/26/23 Status: Ordered duloxetine 30 mg oral enteric coated capsule See Instructions, 1 capsule daily for 2 weeks and then 1 capsule every other day for 2 weeks and then stop., # 21 capsule, 0 Refills, Maintenance, 07/09/23 15:44:00 EDT, [facility]/pharmacy #1157, Partial fill upon patient request if the prescription is for... Start Date: 07/09/23 Status: Ordered duloxetine 60 mg oral enteric coated capsule 1 capsule, By Mouth, Daily, # 90 capsule, 3 Refills, Maintenance, 07/02/23 15:49:00 EDT, [facility] STORE 25785, 167.6, cm, 07/02/23 13:44:00 EDT, Height, 85, kg, 01/15/23 14:55:00 EDT, Dry Weight Start Date: 07/02/23 Status: Ordered fenofibrate 160 mg oral tablet 0.5 tablet, By Mouth, Daily, # 45 tablet, 0 Refills, Maintenance, 06/10/23 0:49:00 EDT, [facility] STORE 53472, 167.6, cm, 04/11/23 8:40:00 EDT, Height, 85, kg, 01/15/23 14:55:00 EDT, Dry Weight Start Date: 06/10/23 Status: Ordered fluticasone 50 mcg/inh nasal spray 2 sprays, Nares, Both, Daily, Maintenance, 08/18/22 17:16:00 EDT, [place], Partial fill upon patient request if the [...] Refills, Maintenance, 06/19/23 16:44:00 EDT, [facility], 167.6, cm, 04/11/23 8:40:00 EDT, Height, 85, [...] kg... Start Date: 10/18/22 Status: Ordered Pen [place], 31 G x 5 mm BD Ultra [...] 03/27/23 10:46:00 EDT, Route to Pharmacy Electronically, [facility], Partial fill upon patient request if the prescription is for a schedule II opioi... Start Date: 03/27/23 Status: Ordered Potassium Chloride (Wpu-Ywqc-Kpw 10) 10 mEq oral tablet, extended release 1 tablet, By Mouth, Daily, # 90 tablet, 3 Refills, Maintenance, 07/02/23 15:49:00 EDT, [facility], 167.6, cm, 07/02/23 13:44:00 EDT, Height, 85, [...] Refills, Maintenance, 07/02/23 15:49:00 EDT, [facility], 167.6, cm, 07/02/23 13:44:00 EDT, Height, 85, [...] Team Personnel Name: Nayeli Fernandez RN Position: [facility] RN Member Role: Primary Care Nurse Name: Sonny Silverman RN Position: [facility] RN Member Role: Primary Care Nurse Name: Luciano Hernandez MD Position: [facility] Renal MD Member Role: Lifetime Consulting Physician Address: Address: [address] [place] [address] [address] [facility] [place], [place] [address]- Name: Brennan Tyson MD Position: [facility] Physician - Primary Care Member Role: PCP Address: Address: [address] [place] [address]- Name: Teresa Boyd [place] Position: [facility] Anesthesiology Faculty Member Role: Metal Fitter Name: Roxy Akers RN Position: [facility] Nurse Member Role: Primary Care Nurse Name: Flores Freeman RN Position: [facility] RN Member Role: Primary Care Nurse Care Team Related Persons Name: PRABHAKAR JACINTO Address: home [address] [place] [address] Name: KANG JACINTO Name: JOSE SHAW Address: [place] [address] Name: ANUM DUBOSE Address: home [address] [place] [address]
--- OUTSIDE RECORDS SUMMARY | 2023-08-20 10:49 | XMS_ITS ---
Author Name Unknown Organization [facility] Address [address] [place] [address] Care Team Providers Care Anthropology And Archeology Instructor Name Role Phone Not Available MD, Physician Info Primary Care Ph ysician Unavailable Encounter Date(s): 04/03/21 - 04/03/[address] [address]- [phone] Encounter Diagnosis Skin tear(Discharge Diagnosis) - 04/03/21 Discharge Disposition: Home or Self Care Attending Physician: Vinod Mancia MD Admitting Physician: Vinod Mancia MD Vital Signs Most recent to oldest [Reference Range]: 1 Temperature Oral [96.1-99.6 DegF] 98.0 D egF (04/03/21 6:09 AM) SpO2 [94-100 %] 98 % (04/03/21 6:09 AM) Respiratory Rate [12-24 br/min] 18 br/mi n (04/03/21 6:09 AM) Peripheral Pulse Rate [50-110 bpm] 72 bp m (04/03/21 6:09 AM) Blood Pressure [80-140/50-90 mmHg] 135/8 6mmHg (04/03/21 6:09 AM) Weight 95.2 Kg (04/03/21 5:59 AM) Height 167 cm (04/03/21 5:59 AM) Body Mass Index 34.14 Kg/m2 (04/03/21 5:59 AM) Problem List Condition Effective Dates Status Health Status Inform ant CAD(Confirmed) Active Allergies, Adverse Reactions, Alerts Substance Reaction Severity Status tetanus toxoid Unknown Active Social History Social History Type Response
--- OUTSIDE RECORDS SUMMARY | 2023-08-20 10:49 | XMS_ITS | Continuity of Care Document ---
Author Name Unknown Organization [facility] Address [address] [place] [address]- Care Team Providers Care Tire Repairer Name Role Phone Brennan Tyson MD Primary Care Physician [phone] [facility] - 07/13/23 [facility] [place] [address]- Allergies, Adverse Reactions, Alerts Substance Reaction Severity [...] Given 1Result Comment: [08/12/2018] [facility] [id number] 2Result Comment: [08/12/2018] [facility] [id number] Medications Advair Diskus 500 mcg-50 mcg inhalation [...] 03/27/23 10:47:00 EDT, Route to Pharmacy Electronically, [facility], Partial fill upon patient request if the prescription is for a schedule II opioi... Start Date: 03/27/23 Status: Ordered atorvastatin 40 mg oral tablet 1 tablet, By Mouth, Daily, # 90 tablet, 1 Refills, Maintenance, 07/10/23 18:32:00 EDT, [facility] 25054, 167.6, cm, 07/02/23 13:44:00 EDT, Height, 85, kg, 01/15/23 14:55:00 EDT, Dry Weight Start Date: 07/10/23 Status: Ordered bumetanide 1 mg oral tablet 1, tablet, By Mouth, Daily, # 90 tablet, Refills 1, Maintenance, 07/02/23 15:49:00 EDT, Route to Pharmacy Electronically, [facility] 41402, 167.6, cm, 07/02/23 13:44:00 EDT, Height, 85, kg, 01/15/23 14:55:00 EDT, Dry Weight Start Date: 07/02/23 Status: Ordered carvedilol 25 mg oral tablet 1, tablet, By Mouth, 2 times a day, # 180 tablet, Refills 3, Maintenance, 02/26/23 16:11:00 EDT, Route to Pharmacy Electronically, [facility] ST[facility] 03246, 165, cm, 02/21/23 9:40:00 EDT, Height, 85, kg, 01/15/23 14:55:00 EDT, Dry Weight Start Date: 02/26/23 Status: Ordered duloxetine 30 mg oral enteric coated capsule See Instructions, 1 capsule daily for 2 weeks and then 1 capsule every other day for 2 weeks and then stop., # 21 capsule, 0 Refills, Maintenance, 07/09/23 15:44:00 EDT, [facility]/pharmacy #1157, Partial fill upon patient request if the prescription is for... Start Date: 07/09/23 Status: Ordered duloxetine 60 mg oral enteric coated capsule 1 capsule, By Mouth, Daily, # 90 capsule, 3 Refills, Maintenance, 07/02/23 15:49:00 EDT, [facility] ST[facility] 69854, 167.6, cm, 07/02/23 13:44:00 EDT, Height, 85, kg, 01/15/23 14:55:00 EDT, Dry Weight Start Date: 07/02/23 Status: Ordered fenofibrate 160 mg oral tablet 0.5 tablet, By Mouth, Daily, # 45 tablet, 0 Refills, Maintenance, 06/10/23 0:49:00 EDT, [facility] STORE 75801, 167.6, cm, 04/11/23 8:40:00 EDT, Height, 85, kg, 01/15/23 14:55:00 EDT, Dry Weight Start Date: 06/10/23 Status: Ordered fluticasone 50 mcg/inh nasal spray 2 sprays, Nares, Both, Daily, Maintenance, 08/18/22 17:16:00 EDT, [place], Partial fill upon patient request if the [...] 30 tablet, 1 Refills, Maintenance,02/21/23 10:02:00 EDT, [facility]/pharmacy #1157, Partial fill upon patient [...] Refills, Maintenance, 06/19/23 16:44:00 EDT, [facility], 167.6, cm, 04/11/23 8:40:00 EDT, Height, 85, [...] kg... Start Date: 10/18/22 Status: Ordered Pen [place], 31 G x 5 mm BD Ultra [...] 03/27/23 10:46:00 EDT, Route to Pharmacy Electronically, [facility], Partial fill upon patient request if the prescription is for a schedule II opioi... Start Date: 03/27/23 Status: Ordered Potassium Chloride (Cvp-Whkb-Ndo 10) 10 mEq oral tablet, extended release 1 tablet, By Mouth, Daily, # 90 tablet, 3 Refills, Maintenance, 07/02/23 15:49:00 EDT, [facility], 167.6, cm, 07/02/23 13:44:00 EDT, Height, 85, [...] tablet, 1 Refills, Maintenance, 07/02/23 15:49:00 EDT, [facility] STORE 24530, 167.6, cm, 07/02/23 13:44:00 EDT, Height, 85, [...] Acute 07/31/23 9:12:00 EDT, 07/03/23 9:12:00 EDT, [facility]/pharmacy #1157, Partial fill upon patient [...] mL, 1 Refills, Maintenance, 07/02/23 14:05:00 EDT, [facility]/pharmacy #1157, Partial fill upon patient [...] Team Personnel Name: Sonny Silverman RN Position: [facility] RN Member Role: Primary Care Nurse Name: Luciano Hernandez MD Position: [facility] Renal MD Member Role: Lifetime Consulting Physician Address: Address: [address] [facility] [place] [address]- [place] Name: Brennan Tyson MD Position: [facility] Physician - Primary Care Member Role: PCP Address: Address: [address] [place] [address]- [place] Name: Teresa Boyd [place] Position: [facility] Manager Ems Member Role: Fire Eater Name: Oswald RN, Roxy Hines Position: [facility] AMB Nurse Member Role: Primary Care Nurse Name: Flroes Freeman RN Position: [facility] RN Member Role: Primary Care Nurse Care Team Related Persons Name: PRABHAKAR JACINTO Address: home [address] [place] [address] Name: KANG JACINTO Name: JOSE SHAW Address: [place] [address] Name: ANUM DUBOSE Address: home [address] [place] [address]
--- OUTSIDE RECORDS SUMMARY | 2023-08-20 10:49 | XMS_ITS | Continuity of Care Document ---
Author Name Unknown Organization [facility] Address [address] [place] [address]- Care Team Providers Care Knee Bolter Name Role Phone Brennan Tyson MD Primary Care Physician [facility]): 07/03/23 - 08/02/23 [facility] [address] [place] [address]- Allergies, Adverse Reactions, Alerts Substance Reaction Severity Status labetalol Active tetanus toxoid Active HORSE SERUM PROTEINS AB.IGE.RAST CLASS Active Immunizations Given and Recorded Vaccine Date Status Refusal Reason [id number] bivalent booster vax 07/21/23 Recorded influenza virus [...] tetanus/diphtheria/pertussis, acel(Tdap) 10/20/13 Given 1Result Comment: [08/12/2018] [facility] [id number] 2Result Comment: [08/12/2018] [facility] [id number] Medications Advair Diskus 500 mcg-50 mcg inhalation [...] 03/27/23 10:47:00 EDT, Route to Pharmacy Electronically, [facility], Partial fill upon patient request if the prescription is for a schedule II opioi... Start Date: 03/27/23 Status: Ordered atorvastatin 40 mg oral tablet 1 tablet, By Mouth, Daily, # 90 tablet, 1 Refills, Maintenance, 07/10/23 18:32:00 EDT, [facility] 46545, 167.6, cm, 07/02/23 13:44:00 EDT, Height, 85, kg, 01/15/23 14:55:00 EDT, Dry Weight Start Date: 07/10/23 Status: Ordered bumetanide 1 mg oral tablet 2 mg, 2, tablet, By Mouth, Daily, # 180 tablet, Refills 1, Maintenance, 07/02/23 15:49:00 EDT, Route to Pharmacy Electronically, [facility] 26460, 167.6, cm, 07/02/23 13:44:00 EDT, Height, 85, kg, 01/15/23 14:55:00 EDT, Dry Weight Start Date: 07/02/23 Status: Ordered carvedilol 25 mg oral tablet 1, tablet, By Mouth, 2 times a day, # 180 tablet, Refills 3, Maintenance, 02/26/23 16:11:00 EDT, Route to Pharmacy Electronically, [facility] 05919, 165, cm, 02/21/23 9:40:00 EDT, Height, 85, kg, 01/15/23 14:55:00 EDT, Dry Weight Start Date: 02/26/23 Status: Ordered duloxetine 30 mg oral enteric coated capsule See Instructions, 1 capsule daily for 2 weeks and then 1 capsule every other day for 2 weeks and then stop., # 21 capsule, 0 Refills, Maintenance, 07/09/23 15:44:00 EDT, [facility]/pharmacy #1157, Partial fill upon patient request if the prescription is for... Start Date: 07/09/23 Status: Ordered duloxetine 60 mg oral enteric coated capsule 1 capsule, By Mouth, Daily, # 90 capsule, 3 Refills, Maintenance, 07/02/23 15:49:00 EDT, [facility] 58991, 167.6, cm, 07/02/23 13:44:00 EDT, Height, 85, kg, 01/15/23 14:55:00 EDT, Dry Weight Start Date: 07/02/23 Status: Ordered fenofibrate 160 mg oral tablet 0.5 tablet, By Mouth, Daily, # 45 tablet, 0 Refills, Maintenance, 06/10/23 0:49:00 EDT, [facility] 61365, 167.6, cm, 04/11/23 8:40:00 EDT, Height, 85, kg, 01/15/23 14:55:00 EDT, Dry Weight Start Date: 06/10/23 Status: Ordered fluticasone 50 mcg/inh nasal spray 2 sprays, Nares, Both, Daily, Maintenance, 08/18/22 17:16:00 EDT, [place], Partial fill upon patient request if the [...] 30 tablet, 1 Refills, Maintenance,02/21/23 10:02:00 EDT, [facility]/pharmacy #1157, Partial fill upon patient request [...] Refills, Maintenance, 06/19/23 16:44:00 EDT, [facility], 167.6, cm, 04/11/23 8:40:00 EDT, Height, 85, [...] kg... Start Date: 10/18/22 Status: Ordered Pen [place], 31 G x 5 mm BD Ultra [...] 03/27/23 10:46:00 EDT, Route to Pharmacy Electronically, [facility], Partial fill upon patient request if the prescription is for a schedule II opioi... Start Date: 03/27/23 Status: Ordered Potassium Chloride (Ibx-Djkv-Sbg 10) 10 mEq oral tablet, extended release 1 tablet, By Mouth, Daily, # 90 tablet, 3 Refills, Maintenance, 07/02/23 15:49:00 EDT, [facility], 167.6, cm, 07/02/23 13:44:00 EDT, Height, 85, [...] Refills, Maintenance, 07/02/23 15:49:00 EDT, [facility], 167.6, cm, 07/02/23 13:44:00 EDT, Height, 85, [...] Team Personnel Name: Nayeli Fernandez RN Position: [facility] RN Member Role: Primary Care Nurse Name: Sonny Silverman RN Position: [facility] RN Member Role: Primary Care Nurse Name: Luciano Hernandez MD Position: [facility] Renal MD Member Role: Lifetime Consulting Physician Address: Address: [address] [place] [address] [address] [facility] [place] [address]- Name: Brennan Tyson MD Position: [facility] Physician - Primary Care Member Role: PCP Address: Address: [address] [place] [address]- Name: Teresa Boyd [place] Position: [facility] DAPHNE Telemetry Tech Member Role: Case Operator Name: Roxy Akers RN Position: [facility] [place]ISHA Nurse Member Role: Primary Care Nurse Name: Flores Freeman RN Position: [facility] RN Member Role: Primary Care Nurse Care Team Related Persons Name: PRABHAKAR JACINTO Address: home [address] [place] [address] Name: KANG JACINTO Name: JOSE SHWA Address: [place] [address] Name: ANUM DUBOSE Address: home [address] [place] [address]
--- OUTSIDE RECORDS SUMMARY | 2023-08-20 10:49 | XMS_ITS | Continuity of Care Document ---
Author Name Unknown Organization [facility] Address [address] [place] [address]- Care Team Providers Care Barrel Loader Name Role Phone Brennan Tyson MD Primary Care Physician [phone] [facility]): 05[facility]07[facility]21 - 05/14/21 [facility] [address] [place] [address]- Attending Physician: Brennan Tyson MD Referring Physician: Inocencio Diez Allergies, Adverse Reactions, Alerts Substance Reaction Severity [...] Comment: [08/12/2018] [facility] [id number] 2Result Comment: [08/12/2018] [facility] [id number] Medications Advair Diskus 500 mcg-50 mcg inhalation powder 1 puffs, Inhalation, 2 times a day, # 180 each, 0 Refills, Maintenance, Powder Start Date: 10/23/12 Status: Ordered amLODIPine 10 mg oral tablet 10 mg, 1, tablet, By Mouth, Daily, # 90 tablet, Refills 3, Tot. Refills 3, Maintenance, 06/02/20 13:26:00 EDT, Route to Pharmacy Electronically, [facility]/pharmacy #1157, 167.6, cm, 03/27/20 8:14:00 EDT, [...] 11 Refills, Maintenance, 02/28/21 15:05:00 EDT, Tablet, [facility]/pharmacy #1157, Partial fill upon patient request if the prescription is for a schedule II opioid drug., 167.6, cm, 02/07/21 9:57:00 EDT, [facility]... Start Date: 02/28/21 Status: Ordered carvedilol 25 mg oral tablet 25 mg, 1, tablet, By Mouth, 2 times a day, # 60 tablet, Refills 11, Tot. Refills 11, Maintenance, 02/28/21 16:34:00 EDT, Route to Pharmacy Electronically, [facility]/pharmacy #1157, 167.6, cm, 02/07/21 9:57:00 EDT, [...] Refills, Maintenance, 12/25/20 9:10:00 EST, [facility], 167.6, cm, 11/28/20 10:41:00 EST, Height, 90.7, [...] 06/02/20 13:26:00 EDT, Route to Pharmacy Electronically, [facility]/pharmacy #1157, 167.6, cm, 03/27/20 8:14:00 EDT,Height, 90.7, kg, 09/08/19 8:17:00 EST, Dry Weight Start Date: 06/02/20 Status: Ordered LORazepam 0.5 mg oral tablet 1 tablet = 0.5 mg, By Mouth, Daily, PRN as needed for anxiety, for 30 days, # 30 tablet, 2 Refills,Acute 06/26/21 15:17:00 EDT, 03/28/21 15:17:00 EDT, Tablet, [facility]/pharmacy #1157, 167.6, cm, :57:00 EDT, Height, [...] capsule, 0 Refills, Maintenance, 04/27/21 8:50:00 EDT, [facility]/pharmacy #1157, 167.6, cm, 04/10/21 12:50:00 EDT, [...] tablet, 11 Refills, Maintenance, 08/31/20 11:42:00 EST, [facility]/pharmacy #1157, 167.6, cm, 03/27/20 8:14:00 EDT, [...] BEDTIME, # 180 tablet, 1 Refills, Maintenance, [facility] STORE 07313, 167.6, cm, 04/10/21 12:50:00 EDT, Height, 90.7, kg, 09/08/19 8:17:00 EST, Dry Weight Start Date: 05/07/21 Status: Ordered rOPINIRole 1 mg oral tablet 2 tablet = 2 mg, By Mouth, Daily at bedtime, # 180 tablet, 1 Refills, Maintenance, 12/22/20 12:40:00 EST, Tablet, [facility]/pharmacy #1157, 167.6, cm, 11/28/20 10:41:00 EST, Height, 90.7, kg, 09/08/19 8:17:00 EST, Dry Weight Start Date: 12/22/20 Stop Date: 06/20/21 Status: Ordered sertraline 100 mg oral tablet 2 tablet = 200 mg, By Mouth, Daily, DOSE INCREASE, # 60 tablet, 11 Refills, Maintenance, 01/08/21 14:15:00 EDT, Tablet, [facility], dose increase, 167.6, cm, 01/08/21 13:53:00 EDT, Height, 90.7, kg, 09/08/19 8:17:00 EST, Dry Weight Start Date: 01/08/21 Stop Date: 01/03/22 Status: Ordered tamsulosin 0.4 mg oral capsule 0.4 mg, 1, capsule, By Mouth, Daily, 30 minutes after the same meal, # 90 capsule, Refills 3, Tot. Refills 3, Maintenance, 10/25/20 7:20:00 EST, Route to Pharmacy Electronically, [facility]/pharmacy #1157, 167.6, cm, 03/27/20 8:14:00 EDT, [...] oldest [Reference Range]: 1 Height 167.6 cm (05/07/21 4:16 PM) Weight 95.0 kg (05/07/21 4:16 PM) Oxygen Saturation [94-100 %] 97 % (05/07/21 4:16 PM) Pulse Rate [55-90 bpm] 81 bpm (05/07/21 4:16 PM) Body Mass Index [18.5-24.99] 33.82 *>HHI* (05/07/21 4:16 PM) Blood Pressure [90-138/55-84 mm Hg] 144/ 86mm Hg *H* (05/07/21 4:16 PM) Blood pressure sites Arm, left (05/07/21 4:16 PM) Social History Social History Type Response Smoking Status Former smoker; Type: Cigarettes; Other: quit 2006; entered on: 09/19/17 Sex
--- OUTSIDE RECORDS SUMMARY | 2023-08-20 10:49 | XMS_ITS | Continuity of Care Document ---
Author Name Unknown Organization [facility] Address [address] [place] [address]- Care Team Providers Care Drill Foreman Name Role Phone Brennan Tyson MD Primary Care Physician [facility] 11/22/22 - 12/22/22 [facility] [address] [place] [address]- Allergies, Adverse Reactions, Alerts Substance Reaction Severity [...] 1Result Comment: [08/12/2018] [facility] [id number] 2Result Comment: [08/12/2018] [facility] [id number] Medications Advair Diskus 500 mcg-50 mcg inhalation [...] tablet, 1 Refills, Maintenance, 07/08/22 0:13:00 EDT, [facility] STORE 09540, 167.6, cm, 06/18/22 14:40:00 EDT, Height Start Date: 07/08/22 Status: Ordered buPROPion 150 mg/24 hours (XL) oral tablet, extended release 1 tablet = 150 mg, By Mouth, Every 24 hours, # 14 tablet, 0 Refills, Maintenance, 10/18/22 17:03:00EST, [facility]/pharmacy #1157, Partial fill upon patient [...] Refills, Maintenance, 10/20/22 11:47:00 EST, ER Tablet, [facility]/pharmacy #1157, Partial fill upon patient request if the prescription is for a... Start Date: 10/20/22 Status: Ordered carvedilol 25 mg oral tablet 1, tablet, By Mouth, 2 times a day, # 180 tablet, Refills 3, Route to Pharmacy Electronically, [facility], 167.6, cm, 11/21/21 9:53:00 EST, Height Start [...] Mouth, Daily, # 45 tablet, 4 Refills, [facility] 69596, 167.6, cm, 04/01/22 8:47:00 EDT, Height Start Date: 06/07/22 Status: Ordered fluticasone 50 mcg/inh nasal spray 2 sprays, Nares, Both, Daily, Maintenance, 08/18/22 17:16:00 EDT, [place], Partial fill upon patient request if the [...] Stop 04/04/23 15:00:00 EDT, 04/09/22 15:00:00 EDT, [facility]/pharmacy #1157, 167.6, cm, 04/01/22 8:47:00 [...] kg... Start Date: 10/18/22 Status: Ordered Pen [place], 31 G x 5 mm BD Ultra [...] tablet, 1 Refills, Maintenance, 10/28/22 8:47:00EST, Tablet, [facility]/pharmacy #1157, 165, cm, 10/18/22 16:17:00 EST, Height, 103, kg, 09/19/22 22:30:00EST, Dry Weight Start Date: 10/28/22 Stop Date: 04/26/23 Status: Ordered tamsulosin 0.4 mg oral capsule See Instructions, TAKE 1 CAPSULE BY MOUTH DAILY 30 MINUTES AFTER THE SAME MEAL, # 90 capsule, Refills 1, Maintenance, 11/08/22 11:58:00 EST, Instructions Replace Required Details, Route to Pharmacy Electronically, [facility], 165, cm, 10/18/22 16... Start Date: 11/08/22 [...] Care Nurse Name: Luciano Hernandez MD Position: [facility] Renal MD Member Role: Lifetime Consulting Physician Address: Address: [address] [facility] [address] [facility] [place] [address]- [place] Name: Brennan Tyson MD Position: [facility] Primary Care Physician Member Role: PCP Address: Address: [address] [place] [address]- Name: Roxy Akers RN Position: S RN Member Role: Primary Care Nurse Name: Flores Freeman RN Position: S RN Member Role: Primary Care Nurse Name: Fabiana Hairston RN Position: S RN Member Role: Primary Care Nurse Care Team Related Persons Name: PRABHAKAR JACINTO Address: home [address] [place] [address] Name: KANG JACINTO Name: JOSE SHAW Address: [place] [address] Name: ANUM DUBOSE Address: home [address] [place] [address]
--- OUTSIDE RECORDS SUMMARY | 2023-08-20 10:49 | XMS_ITS | Continuity of Care Document ---
Author Name Unknown Organization [facility] Adult Address [address] [place] [address]- Care Team Providers Care Casting Operator Name Role Phone Brennan Tyson MD Primary Care Physician [facility]): 03[facility]27/20 - 04/26/20 [facility] [address] [place] [address]- [facility] Attending Physician: Joy Dove Admitting [...] Given 1Result Comment: [08/12/2018] [facility] [id number] 2Result Comment: [08/12/2018] [facility] [id number] Medications Advair Diskus 500 mcg-50 mcg inhalation powder 1 puffs, Inhalation, 2 times a day, # 180 each, 0 Refills, Maintenance, Powder Start Date: 10/23/12 Status: Ordered amLODIPine 10 mg oral tablet 10 mg, 1, tablet, By Mouth, Daily, # 90 tablet, Refills 3, Tot. Refills 3, Maintenance, 12/30/18 13:42:36 EDT, Route to Pharmacy Electronically, [id number], [facility]/pharmacy #1157 Start Date: 12/30/18 Stop Date: 12/25/19 [...] 06/17/19 6:49:21 EDT, Route to Pharmacy Electronically, [id number], [facility]/pharmacy #1157 Start Date: 06/17/19 Status: Ordered Centrum [...] Refills, Maintenance, 12/01/19 13:16:00 EST, [facility], 167.6, cm, 11/24/19 9:18:00 EST, Height, 90.7, [...] 10/07/18 8:59:29 EST, Route to Pharmacy Electronically, [id number], [facility]/pharmacy #1157 Start Date: 10/07/18 Status: Ordered LORazepam 0.5 mg oral tablet 1 tablet = 0.5 mg, By Mouth, Daily, PRN as needed for anxiety, for 30 days, # 30 tablet, 3 Refills,Acute 05/10/20 10:19:00 EDT, 01/11/20 10:19:00 EDT, Tablet, [facility], 167.6, cm, 209:18:00 EST, Height, 90.7, [...] Refills, Maintenance, 12/28/19 12:28:00 EDT, Tablet, [facility]/pharmacy #1157, 167.6, cm, 11/24/19 9:18:00 EST, Height, [...] 04/08/19 14:06:58 EDT, Route to Pharmacy Electronically, [id number], [facility] Start Date: 04/08/19 Status: Ordered [...]
--- OUTSIDE RECORDS SUMMARY | 2023-08-20 10:49 | XMS_ITS | Continuity of Care Document ---
Author Name Unknown Organization [facility] Address [address] [place] [address]- Care Team Providers Care Tank Crewmember Name Role Phone Brennan Tyson MD Primary Care Physician [facility]): 03[facility]30[facility]20 - 04/29/20 [facility] [address] [place] [address]- [facility] Attending Physician: Joy Dove Admitting Physician: Joy [...] acel(Tdap) 10/20/13 Given 1Result Comment: [08/12/2018] [facility] [id number] 2Result Comment: [08/12/2018] [facility] [id number] Medications Advair Diskus 500 mcg-50 mcg inhalation powder 1 puffs, Inhalation, 2 times a day, # 180 each, 0 Refills, Maintenance, Powder Start Date: 10/23/12 Status: Ordered amLODIPine 10 mg oral tablet 10 mg, 1, tablet, By Mouth, Daily, # 90 tablet, Refills 3, Tot. Refills 3, Maintenance, 03/13/19 13:42:36 EDT, Route to Pharmacy Electronically, [id number], [facility]/pharmacy #1157 Start Date: 12/30/18 Stop [...] 06/17/19 6:49:21 EDT, Route to Pharmacy Electronically, [id number], [facility]/pharmacy #1157 Start Date: 06/17/19 Status: [...] Refills, Maintenance, 12/01/19 13:16:00 EST, [facility], 167.6, cm, 11/24/19 9:18:00 EST, Height, 90.7, [...] 10/07/18 8:59:29 EST, Route to Pharmacy Electronically, [id number], [facility]/pharmacy #1157 Start Date: 10/07/18 Status: Ordered LORazepam 0.5 mg oral tablet 1 tablet = 0.5 mg, By Mouth, Daily, PRN as needed for anxiety, for 30 days, # 30 tablet, 3 Refills,Acute 05/10/20 10:19:00 EDT, 01/11/20 10:19:00 EDT, Tablet, [facility], 167.6, cm, 02/05/209:18:00 EST, Height, 90.7, [...] 1 Refills, Maintenance, 12/28/19 12:28:00 EDT, Tablet, [facility]/pharmacy #1157, 167.6, cm, 11/24/19 9:18:00 [...] 04/08/19 14:06:58 EDT, Route to Pharmacy Electronically, [id number], [facility]/pharmacy #1157 Start Date: 04/08/19 Status: [...]
== END 2023-08-20 11:37 | disposition home or self-care (01) ==
LOC: HO.HKA 10:38
PROVIDERS: PCP Internal Medicine; Visit Provider Internal Medicine Nephrology
DX: I12.9 Hypertensive chronic kidney disease with stage 1 through stage 4 chronic kidney disease, or unspecified chronic kidney disease (principal); N18.9 Chronic kidney disease, unspecified; Z90.5 Acquired absence of kidney; E87.79 Other fluid overload
CPT/HCPCS: 99213

== ENCOUNTER → 2023-08-20 10:38 | Outpatient (BNVA) | payer MEDICARE, MEDICAID, SELFPAY | PROVIDERS: PCP Internal Medicine; Visit Provider Internal Medicine Nephrology | DX: N18.9 Chronic kidney disease, unspecified (principal) | CPT/HCPCS: 99212 ==

== ENCOUNTER 2023-09-04 10:00 | Outpatient (AMB) | payer MEDICARE, MEDICAID, SELFPAY ==
--- NOTE | 2023-09-04 10:13 | HO.NEPHOV ---
HPI HPI Comments History of Present Illness Details Juan Carlos was seen in follow up for his CKD. He has had H/O bleed around his acquired solitary kidney needing HD. He recovered his renal function and had come off HD. He had been having edema needing diuretic dose adjustment lately but with remarkable improvement. His psych medications had been adjusted recently. He denies chest pain, nausea, vomiting, diarrhea . HIs SOB, PND & orthopnea has resolved. His urine output is good. He has no blood in the urine. He has not had any hospitalizations recently. He tries to hydrate himself and avoids NSAID's. [facility] Medical History (Updated 09/05/23 @ 05:29 by Byron Pham MD) Depression Anxiety CHF (congestive heart failure) COPD (chronic obstructive pulmonary disease) Hypertension Presence of Watchman left atrial appendage closure device Surgical History H/O ankle fusion History of heart artery stent History of back surgery Family History Father Leukemia Mother Heart disease Hypertension Social History Alcohol intake: never Patient Tobacco Use Status: Former Tobacco user Vital Signs 09/04/23 10:14 Height 5 ft 5 in Weight 162 lb 4 oz BMI 27.0 BP 134/90 H Blood Pressure Location Rt brachial Position Sitting Pulse 103 H Pulse Source Pulse Oximeter Pulse Oximetry (%) 98 Oxygen Delivery Method Room Air Physical Exam Vital Signs: Last Vital Signs Pulse 103 H 09/04/23 10:14 BP 134/90 H 09/04/23 10:14 Pulse Ox 98 09/04/23 10:14 Oxygen Delivery Method Room Air 09/04/23 10:14 BMI result Body Mass Index 27.0 Const General: comfortable and no acute distress Orientation/consciousness: patient oriented x3 HEENT Head: Yes normocephalic Mouth: Normal oral and palatal mucosa present Eyes EOM: EOMs intact bilaterally Neck Neck: Yes supple Resp Auscultation: clear to auscultation bilaterally Cardio Jugular venous distension: no JVD Rate: regular rate GI Palpation (GI): Soft to palpation Auscultation: normal bowel sounds General: Yes no CVA tenderness Back/Spine/Pelvis Back: no CVA tenderness Skin General skin exam: no rashes or lesions noted Neuro General: patient oriented x3 and moves all extremities Extrem General: Yes no pedal edema Assessment & Plan Assessment & Plan (1) CKD (chronic kidney disease) stage 3, GFR 30-59 ml/min: Code(s): N18.30 - Chronic kidney disease, stage 3 unspecified Qualifiers: Chronic kidney disease stage 3 subtype: stage 3a (GFR 45-59) Qualified Code(s): N18.31 - Chronic kidney disease, stage 3a Plan Renal function had been at baseline Clinically euvolemic C/W Bumex 2 mg daily C/W Metalozone 5 mg once a week Can have an extra 5 mg Metalozone if needed Fluid restriction. 2 Gm Na restriction, Daily weights Will be candidate for Imdur soon All questions answered; F/U 1 month; Time spent 21 minutes Orders: Orders Calcium 09/04/23 N18.30 - Chronic kidney disease, stage 3 unspecified Complete Blood Count Auto Diff 09/04/23 N18.30 - Chronic kidney disease, stage 3 unspecified Electrolytes 09/04/23 N18.30 - Chronic kidney disease, stage 3 unspecified Blood Urea Nitrogen 09/04/23 N18.30 - Chronic kidney disease, stage 3 unspecified Creatinine 09/04/23 N18.30 - Chronic kidney disease, stage 3 unspecified Coding Level of Care Code Est Pt Level 3 (39307) Diagnoses Stage 3a chronic kidney disease N18.31 Chronic kidney disease stage 3 subtype: stage 3a (GFR 45-59)
[2023-09-04 10:14] VITALS: BP 134/90; PULSE 103; O2SAT 98; BMI 27.0
== END 2023-09-04 11:06 | disposition home or self-care (01) ==
PROVIDERS: PCP Internal Medicine; Visit Provider Internal Medicine Nephrology
DX: N18.31 Chronic kidney disease, stage 3a (principal)
CPT/HCPCS: 99213

== ENCOUNTER → 2023-09-04 10:00 | Outpatient (BNVA) | payer MEDICARE, MEDICAID, SELFPAY | PROVIDERS: PCP Internal Medicine; Visit Provider Internal Medicine Nephrology | DX: N18.31 Chronic kidney disease, stage 3a (principal) | CPT/HCPCS: 99212 ==

== ENCOUNTER 2023-10-02 10:04 | Outpatient (AMB) | payer MEDICARE, MEDICAID, SELFPAY ==
[2023-10-02 10:28] VITALS: BP 160/100; PULSE 78; O2SAT 98; BMI 29.2
--- NOTE | 2023-10-02 10:28 | HO.NEPHOV_ITS ---
HPI HPI Comments History of Present Illness Details Juan Carlos was seen in follow up for his CKD. He has H/O bleed around his acquired solitary kidney needing HD. He recovered his renal function and had come off HD. He had been having edema needing diuretic dose adjustment lately but with remarkable improvement. His psych medications had been adjusted recently. He denies chest pain, nausea, vomiting, diarrhea . His SOB, PND & orthopnea has resolved. His urine output is good. He has no blood in the urine. He has not had any hospitalizations recently. He tries to hydrate himself and avoids NSAID's [facility] Medical History (Updated 10/02/23 @ 20:56 by Byron Pham MD) Depression Anxiety CHF (congestive heart failure) COPD (chronic obstructive pulmonary disease) Hypertension Presence of Watchman left atrial appendage closure device Surgical History H/O ankle fusion History of heart artery stent History of back surgery Family History Father Leukemia Mother Heart disease Hypertension Social History Alcohol intake: never Patient Tobacco Use Status: Former Tobacco user Vital Signs 10/02/23 10:28 Height 5 ft 5 in Weight 175 lb 8 oz BMI 29.2 BP 160/100 H Blood Pressure Location Rt brachial Position Sitting Pulse 78 Pulse Source Pulse Oximeter Pulse Oximetry (%) 98 Oxygen Delivery Method Room Air Physical Exam Vital Signs: Last Vital Signs Pulse 78 10/02/23 10:28 BP 160/100 H 10/02/23 10:28 Pulse Ox 98 10/02/23 10:28 Oxygen Delivery Method Room Air 10/02/23 10:28 BMI result Body Mass Index 29.2 Const General: comfortable and no acute distress Orientation/consciousness: patient oriented x3 HEENT Head: Yes normocephalic Mouth: Normal oral and palatal mucosa present Eyes EOM: EOMs intact bilaterally Neck Neck: Yes supple Resp Auscultation: clear to auscultation bilaterally Cardio Jugular venous distension: no JVD Rate: regular rate GI Palpation (GI): Soft to palpation Auscultation: normal bowel sounds General: Yes no CVA tenderness Back/Spine/Pelvis Back: no CVA tenderness Skin General skin exam: no rashes or lesions noted Neuro General: patient oriented x3 and moves all extremities Extrem General: Yes edema Assessment & Plan Assessment & Plan (1) CKD (chronic kidney disease) stage 3, GFR 30-59 ml/min: Code(s): N18.30 - Chronic kidney disease, stage 3 unspecified Qualifiers: Chronic kidney disease stage 3 subtype: stage 3a (GFR 45-59) Qualified Code(s): N18.31 - Chronic kidney disease, stage 3a (2) Hypertension: Code(s): I10 - Essential (primary) hypertension Qualifiers: Hypertension type: primary hypertension Qualified Code(s): I10 - Essential (primary) hypertension (3) Edema: Code(s): R60.9 - Edema, unspecified Plan Renal function close to baseline Mildly hypervolemic C/W Bumex 2 mg daily C/W Metalozone 5 mg once a week Asked to take extra 5 mg Metalozone today & if needed Fluid restriction. 2 Gm Na restriction, Daily weights Started 30 mg Imdur once daily All questions answered; F/U labs ordered F/U given ; All his & 's questions answered Orders: Orders Blood Urea Nitrogen Today I10 - Essential (primary) hypertension, N18.30 - Chronic kidney disease, stage 3 unspecified Electrolytes Today I10 - Essential (primary) hypertension, N18.30 - Chronic kidney disease, stage 3 unspecified Creatinine Today I10 - Essential (primary) hypertension, N18.30 - Chronic kidney disease, stage 3 unspecified Medications: New isosorbide mononitrate ER 30 mg PO DAILY 30 tabs 3RF Coding Level of Care Code Est Pt Level 4 (93156) Diagnoses Stage 3a chronic kidney disease N18.31 Chronic kidney disease stage 3 subtype: stage 3a (GFR 45-59) Primary hypertension I10 Hypertension type: primary hypertension Edema R60.9 Results Reviewed Nephrology Results: No Data to Display
== END 2023-10-02 10:59 | disposition home or self-care (01) ==
PROVIDERS: PCP Internal Medicine; Visit Provider Internal Medicine Nephrology
DX: N18.31 Chronic kidney disease, stage 3a (principal); I10 Essential (primary) hypertension; R60.9 Edema, unspecified
CPT/HCPCS: 99214

== ENCOUNTER → 2023-10-02 10:04 | Outpatient (BNVA) | payer MEDICARE, MEDICAID, SELFPAY | PROVIDERS: PCP Internal Medicine; Visit Provider Internal Medicine Nephrology | DX: I12.9 Hypertensive chronic kidney disease with stage 1 through stage 4 chronic kidney disease, or unspecified chronic kidney disease (principal); N18.31 Chronic kidney disease, stage 3a; R60.9 Edema, unspecified | CPT/HCPCS: 99212 ==

== ENCOUNTER 2023-12-18 10:12 | Outpatient (AMB) | payer MEDICARE, MEDICAID, SELFPAY ==
[2023-12-18 11:25] VITALS: BP 150/90; PULSE 78; BMI 29.2
--- NOTE | 2023-12-18 11:25 | HO.NEPHOV ---
HPI HPI Comments History of Present Illness Details Juan Carlos was seen in follow up for his CKD. He has H/O bleed around his acquired solitary kidney needing HD. He recovered his renal function and had come off HD. He had been having edema needing diuretic dose adjustment lately. His psych medications had been adjusted . He denies chest pain, nausea, vomiting, diarrhea . His SOB, PND & orthopnea has resolved. His urine output is good. He has no blood in the urine. He has not had any hospitalizations recently. He tries to hydrate himself and avoids NSAID's. He has been having pain in the left ankle [facility] Medical History (Updated 12/18/23 @ 11:50 by Byron Pham MD) Depression Anxiety CHF (congestive heart failure) COPD (chronic obstructive pulmonary disease) Hypertension Presence of Watchman left atrial appendage closure device Surgical History H/O ankle fusion History of heart artery stent History of back surgery Family History Father Leukemia Mother Heart disease Hypertension Social History Alcohol intake: never Patient Tobacco Use Status: Former Tobacco user Vital Signs 12/18/23 11:25 Height 5 ft 5 in Weight 175 lb 8 oz BMI 29.2 BP 150/90 H Blood Pressure Location Rt brachial Position Sitting Pulse 78 Pulse Source Pulse Oximeter Physical Exam Vital Signs: Last Vital Signs Pulse 78 12/18/23 11:25 BP 150/90 H 12/18/23 11:25 BMI result Body Mass Index 29.2 Const General: comfortable and no acute distress Orientation/consciousness: patient oriented x3 HEENT Head: Yes normocephalic Mouth: Normal oral and palatal mucosa present Eyes EOM: EOMs intact bilaterally Neck Neck: Yes supple Resp Auscultation: clear to auscultation bilaterally Cardio Jugular venous distension: no JVD Rate: regular rate GI Palpation (GI): Soft to palpation Auscultation: normal bowel sounds General: Yes no CVA tenderness Back/Spine/Pelvis Back: no CVA tenderness Skin General skin exam: no rashes or lesions noted Neuro General: patient oriented x3 and moves all extremities Assessment & Plan Assessment & Plan (1) CKD (chronic kidney disease) stage 3, GFR 30-59 ml/min: Code(s): N18.30 - Chronic kidney disease, stage 3 unspecified Qualifiers: Chronic kidney disease stage 3 subtype: stage 3a (GFR 45-59) Qualified Code(s): N18.31 - Chronic kidney disease, stage 3a (2) Hypertension: Code(s): I10 - Essential (primary) hypertension Qualifiers: Hypertension type: primary hypertension Qualified Code(s): I10 - Essential (primary) hypertension (3) Edema: Code(s): R60.9 - Edema, unspecified Qualifiers: Edema type: unspecified Qualified Code(s): R60.9 - Edema, unspecified (4) Solitary kidney, acquired: Code(s): Z90.5 - Acquired absence of kidney Plan Renal function close to baseline Mildly hypervolemic Increase Bumex to 3 mg daily C/W Metalozone 5 mg twice a week Asked to take extra 5 mg Metalozone if needed Fluid restriction. 2 Gm Na restriction, Daily weights Started Allopurinol 200 mg daily All questions answered; F/U labs ordered F/U given ; All his & 's questions answered Orders: Orders Creatinine Today I10 - Essential (primary) hypertension, N18.30 - Chronic kidney disease, stage 3 unspecified, R60.9 - Edema, unspecified, Z90.5 - Acquired absence of kidney Blood Urea Nitrogen Today I10 - Essential (primary) hypertension, N18.30 - Chronic kidney disease, stage 3 unspecified, R60.9 - Edema, unspecified, Z90.5 - Acquired absence of kidney Electrolytes Today I10 - Essential (primary) hypertension, N18.30 - Chronic kidney disease, stage 3 unspecified, R60.9 - Edema, unspecified, Z90.5 - Acquired absence of kidney Calcium Today I10 - Essential (primary) hypertension, N18.30 - Chronic kidney disease, stage 3 unspecified, R60.9 - Edema, unspecified, Z90.5 - Acquired absence of kidney Uric Acid Today I10 - Essential (primary) hypertension, N18.30 - Chronic kidney disease, stage 3 unspecified, R60.9 - Edema, unspecified, Z90.5 - Acquired absence of kidney Medications: New allopurinol 200 mg PO DAILY 90 tabs 4RF Changed From bumetanide 3 mg PO DAILY To bumetanide 3 mg (1.5 x 2 mg) PO DAILY 30 days 45 tabs 3RF From metolazone 5 mg PO DAILY To metolazone 5 mg orally twice a week; 30 days 10 tabs 8RF Coding Level of Care Code Est Pt Level 4 (12744) Diagnoses Stage 3a chronic kidney disease N18.31 Chronic kidney disease stage 3 subtype: stage 3a (GFR 45-59) Primary hypertension I10 Hypertension type: primary hypertension Edema, unspecified type R60.9 Edema type: unspecified Solitary kidney, acquired Z90.5 Results Reviewed Nephrology Results: No Data to Display
== END 2023-12-18 12:04 | disposition home or self-care (01) ==
PROVIDERS: PCP Internal Medicine; Visit Provider Internal Medicine Nephrology
DX: N18.31 Chronic kidney disease, stage 3a (principal); I10 Essential (primary) hypertension; R60.9 Edema, unspecified; Z90.5 Acquired absence of kidney
CPT/HCPCS: 99214

== ENCOUNTER → 2023-12-18 10:12 | Outpatient (BNVA) | payer MEDICARE, MEDICAID, SELFPAY | PROVIDERS: PCP Internal Medicine; Visit Provider Internal Medicine Nephrology | DX: I12.9 Hypertensive chronic kidney disease with stage 1 through stage 4 chronic kidney disease, or unspecified chronic kidney disease (principal); N18.31 Chronic kidney disease, stage 3a; R60.9 Edema, unspecified; Z90.5 Acquired absence of kidney | CPT/HCPCS: 99212 ==

== ENCOUNTER 2024-03-11 10:04 | Outpatient (AMB) | payer MEDICARE, MEDICAID, SELFPAY ==
--- NOTE | 2024-03-11 10:28 | HO.NEPHOV ---
Vital Signs 03/11/24 10:30 Height 5 ft 5 in Weight 162 lb 8 oz BMI 27.0 BP 130/80 Blood Pressure Location Rt brachial Position Sitting Pulse 74 Pulse Source Pulse Oximeter Pulse Oximetry (%) 95 Oxygen Delivery Method Room Air Intake Visit Reasons: 3 mon follow up/ Confirmed [employer] Tank Missile[employer] Required: No Accompanied by: Spouse Allergies labetalol Allergy (Verified 03/11/24 10:32) Unknown tetanus toxoid, adsorbed Allergy (Verified 03/11/24 10:32) Unknown HPI Comments Details: Juan Carlos was seen in follow up for his CKD. He has H/O bleed around his acquired solitary kidney needing HD. He recovered his renal function and had come off HD. He had been having edema needing diuretic dose adjustment lately. His psych medications had been adjusted . He denies chest pain, nausea, vomiting, diarrhea . His SOB, PND & orthopnea has resolved. His urine output is good. He has no blood in the urine. He has not had any hospitalizations recently. He tries to hydrate himself and avoids NSAID's. He has been having hyperuricemia. He was prescribed allopurinol which was found to be very expensive by him and did not take it [facility] Medical History (Updated 12/18/23 @ 11:50 by Byron Pham MD) Depression Anxiety CHF (congestive heart failure) COPD (chronic obstructive pulmonary disease) Hypertension Presence of Watchman left atrial appendage closure device Surgical History H/O ankle fusion History of heart artery stent History of back surgery Family History Father Leukemia Mother Heart disease Hypertension Social History Alcohol intake: never Patient Tobacco Use Status: Former Tobacco user Physical Exam Vital Signs: Last Vital Signs Pulse 74 03/11/24 10:30 BP 130/80 03/11/24 10:30 Pulse Ox 95 03/11/24 10:30 Oxygen Delivery Method Room Air 03/11/24 10:30 BMI result Body Mass Index 27.0 Const General: comfortable and no acute distress Orientation/consciousness: patient oriented x3 HEENT Head: Yes normocephalic Mouth: Normal oral and palatal mucosa present Eyes EOM: EOMs intact bilaterally Neck Neck: Yes supple Resp Auscultation: clear to auscultation bilaterally Cardio Jugular venous distension: no JVD Rate: regular rate GI Palpation (GI): Soft to palpation Auscultation: normal bowel sounds General: Yes no CVA tenderness Back/Spine/Pelvis Back: no CVA tenderness Skin General skin exam: no rashes or lesions noted Neuro General: patient oriented x3 and moves all extremities Extrem General: Yes edema Results Reviewed Nephrology Results: No Data to Display Assessment & Plan Assessment & Plan (1) Solitary kidney, acquired: Code(s): Z90.5 - Acquired absence of kidney Category: Medical (2) CKD (chronic kidney disease) stage 3, GFR 30-59 ml/min: Code(s): N18.30 - Chronic kidney disease, stage 3 unspecified Category: Medical Qualifiers: Chronic kidney disease stage 3 subtype: stage 3a (GFR 45-59) Qualified Code(s): N18.31 - Chronic kidney disease, stage 3a (3) Hypertension: Code(s): I10 - Essential (primary) hypertension Category: Medical Qualifiers: Hypertension type: primary hypertension Qualified Code(s): I10 - Essential (primary) hypertension Plan Renal function close to baseline Mildly hypervolemic C/W Bumex 3 mg daily C/W Metalozone 5 mg twice a week Asked to take extra 5 mg Metalozone if needed Fluid restriction. 2 Gm Na restriction, Daily weights Needs to take Allopurinol 200 mg daily All questions answered; F/U labs ordered F/U given ; All his & 's questions answered Orders: Orders Creatinine Today I10 - Essential (primary) hypertension, N18.31 - Chronic kidney disease, stage 3a, Z90.5 - Acquired absence of kidney Electrolytes Today I10 - Essential (primary) hypertension, N18.31 - Chronic kidney disease, stage 3a, Z90.5 - Acquired absence of kidney Blood Urea Nitrogen Today I10 - Essential (primary) hypertension, N18.31 - Chronic kidney disease, stage 3a, Z90.5 - Acquired absence of kidney Calcium Today I10 - Essential (primary) hypertension, N18.31 - Chronic kidney disease, stage 3a, Z90.5 - Acquired absence of kidney Coding Level of Care Code Est Pt Level 4 (46248) Diagnoses Solitary kidney, acquired Z90.5 Stage 3a chronic kidney disease N18.31 Chronic kidney disease stage 3 subtype: stage 3a (GFR 45-59) Primary hypertension I10 Hypertension type: primary hypertension
[2024-03-11 10:30] VITALS: BP 130/80; PULSE 74; O2SAT 95; BMI 27.0
== END 2024-03-11 11:02 | disposition home or self-care (01) ==
PROVIDERS: PCP Internal Medicine; Visit Provider Internal Medicine Nephrology
DX: Z90.5 Acquired absence of kidney (principal); N18.31 Chronic kidney disease, stage 3a; I10 Essential (primary) hypertension
CPT/HCPCS: 99214

== ENCOUNTER → 2024-03-11 10:04 | Outpatient (BNVA) | payer MEDICARE, MEDICAID, SELFPAY | PROVIDERS: PCP Internal Medicine; Visit Provider Internal Medicine Nephrology | DX: I10 Essential (primary) hypertension (principal); N18.31 Chronic kidney disease, stage 3a; E79.0 Hyperuricemia without signs of inflammatory arthritis and tophaceous disease; Z90.5 Acquired absence of kidney | CPT/HCPCS: 99212 ==

== ENCOUNTER 2024-06-24 13:44 | Outpatient (AMB) | payer MEDICARE, MEDICAID, SELFPAY ==
--- NOTE | 2024-06-24 14:16 | HO.NEPHOV_ITS ---
Vital Signs 06/24/24 14:17 Height 5 ft 5 in Weight 169 lb BMI 28.1 BP 130/78 Blood Pressure Location Rt brachial Position Sitting Pulse 75 Pulse Source Pulse Oximeter Pulse Oximetry (%) 96 Oxygen Delivery Method Room Air Intake Visit Reasons: 3 mon follow up/CONF Building Trades Instructor Required: No Accompanied by: Spouse Allergies labetalol Allergy (Verified 06/24/24 14:19) Unknown tetanus toxoid, adsorbed Allergy (Verified 06/24/24 14:19) Unknown HPI Comments Details: Juan Carlos was seen in follow up for his CKD. He has H/O bleed around his acquired solitary kidney needing HD. He recovered his renal function and had come off HD. He had been having edema needing diuretic dose adjustment lately. His psych medications had been adjusted . He denies chest pain, nausea, vomiting, diarrhea . His urine output is good. He has no blood in the urine. He has not had any hospitalizations recently. He tries to hydrate himself and avoids NSAID's. He has been having hyperuricemia and is on allopurinol. [facility], [facility] Medical History (Updated 12/18/23 @ 11:50 by Byron Pham MD) Depression Anxiety CHF (congestive heart failure) COPD (chronic obstructive pulmonary disease) Hypertension Presence of Watchman left atrial appendage closure device Surgical History H/O ankle fusion History of heart artery stent History of back surgery Family History Father Leukemia Mother Heart disease Hypertension Social History Alcohol intake: never Patient Tobacco Use Status: Former Tobacco user Review of Systems Const All systems reviewed & are unremarkable except as noted in HPI and below Physical Exam Vital Signs: Last Vital Signs Pulse 75 06/24/24 14:17 BP 130/78 06/24/24 14:17 Pulse Ox 96 06/24/24 14:17 Oxygen Delivery Method Room Air 06/24/24 14:17 BMI result Body Mass Index 28.1 Const General: comfortable and no acute distress Orientation/consciousness: patient oriented x3 HEENT Head: Yes normocephalic Mouth: Normal oral and palatal mucosa present Eyes EOM: EOMs intact bilaterally Neck Neck: Yes supple Resp Auscultation: clear to auscultation bilaterally Cardio Jugular venous distension: no JVD Rate: regular rate GI Palpation (GI): Soft to palpation Auscultation: normal bowel sounds General: Yes no CVA tenderness Back/Spine/Pelvis Back: no CVA tenderness Skin General skin exam: no rashes or lesions noted Neuro General: patient oriented x3 and moves all extremities Results Reviewed Nephrology Results: No Data to Display Assessment & Plan Assessment & Plan (1) CKD (chronic kidney disease) stage 3, GFR 30-59 ml/min: Code(s): N18.30 - Chronic kidney disease, stage 3 unspecified Category: Medical Qualifiers: Chronic kidney disease stage 3 subtype: stage 3a (GFR 45-59) Qualified Code(s): N18.31 - Chronic kidney disease, stage 3a (2) Hypertension: Code(s): I10 - Essential (primary) hypertension Category: Medical Qualifiers: Hypertension type: primary hypertension Qualified Code(s): I10 - Essential (primary) hypertension (3) Solitary kidney, acquired: Code(s): Z90.5 - Acquired absence of kidney Category: Medical (4) Edema: Code(s): R60.9 - Edema, unspecified Category: Medical Qualifiers: Edema type: unspecified Qualified Code(s): R60.9 - Edema, unspecified Plan Renal function close to baseline Mildly hypervolemic C/W Bumex 3 mg daily C/W Metalozone 5 mg twice a week Asked to take extra 5 mg Metalozone if needed Fluid restriction. 2 Gm Na restriction, Daily weights Needs to take Allopurinol 200 mg daily All questions answered; F/U labs ordered F/U given ; All his & 's questions answered Orders: Orders Blood Urea Nitrogen Today I10 - Essential (primary) hypertension, N18.31 - Chronic kidney disease, stage 3a, R60.9 - Edema, unspecified, Z90.5 - Acquired absence of kidney Calcium Today I10 - Essential (primary) hypertension, N18.31 - Chronic kidney disease, stage 3a, R60.9 - Edema, unspecified, Z90.5 - Acquired absence of kidney Complete Blood Count Auto Diff Today I10 - Essential (primary) hypertension, N18.31 - Chronic kidney disease, stage 3a, R60.9 - Edema, unspecified, Z90.5 - Acquired absence of kidney Creatinine Today I10 - Essential (primary) hypertension, N18.31 - Chronic kidney disease, stage 3a, R60.9 - Edema, unspecified, Z90.5 - Acquired absence of kidney Electrolytes Today I10 - Essential (primary) hypertension, N18.31 - Chronic kidney disease, stage 3a, R60.9 - Edema, unspecified, Z90.5 - Acquired absence of kidney Uric Acid Today I10 - Essential (primary) hypertension, N18.31 - Chronic kidney disease, stage 3a, R60.9 - Edema, unspecified, Z90.5 - Acquired absence of kidney Coding Level of Care Code Est Pt Level 4 (80656) Diagnoses Stage 3a chronic kidney disease N18.31 Chronic kidney disease stage 3 subtype: stage 3a (GFR 45-59) Primary hypertension I10 Hypertension type: primary hypertension Solitary kidney, acquired Z90.5 Edema, unspecified type R60.9 Edema type: unspecified
[2024-06-24 14:17] VITALS: BP 130/78; PULSE 75; O2SAT 96; BMI 28.1
== END 2024-06-24 14:58 | disposition home or self-care (01) ==
PROVIDERS: PCP Internal Medicine; Visit Provider Internal Medicine Nephrology
DX: N18.31 Chronic kidney disease, stage 3a (principal); I10 Essential (primary) hypertension; Z90.5 Acquired absence of kidney; R60.9 Edema, unspecified
CPT/HCPCS: 99214

== ENCOUNTER → 2024-06-24 13:44 | Outpatient (BNVA) | payer MEDICARE, MEDICAID, SELFPAY | PROVIDERS: PCP Internal Medicine; Visit Provider Internal Medicine Nephrology | DX: I12.9 Hypertensive chronic kidney disease with stage 1 through stage 4 chronic kidney disease, or unspecified chronic kidney disease (principal); N18.31 Chronic kidney disease, stage 3a; R60.9 Edema, unspecified; Z90.5 Acquired absence of kidney | CPT/HCPCS: 99212 ==

== ENCOUNTER 2024-12-21 14:33 | Outpatient (AMB) | payer MEDICARE, MEDICAID, SELFPAY ==
--- NOTE | 2024-12-21 15:15 | HO.NEPHOV ---
Vital Signs 12/21/24 15:16 Height 5 ft 5 in Weight 173 lb BMI 28.8 BP 130/70 Blood Pressure Location Rt brachial Position Sitting Pulse 95 Pulse Source Pulse Oximeter Pulse Oximetry (%) 97 Oxygen Delivery Method Room Air Intake Visit Reasons: Pts called for appt-Conf w/ Roseann Dining Service Supervisor Required: No Accompanied by: Spouse Allergies labetalol Allergy (Verified 12/21/24 15:16) Unknown tetanus toxoid, adsorbed Allergy (Verified 12/21/24 15:16) Unknown HPI Comments Details: Juan Carlos was seen in follow up for his CKD. He recently had a hospitalization for pneumonia. His renal function is at baseline. He has some edema. He has H/O bleed around his acquired solitary kidney needing HD. He recovered his renal function and had come off HD. He had been difficulty in emptying his bladder and has been incontinence. He denies chest pain, nausea, vomiting, diarrhea . His urine output is good. He has no blood in the urine. He tries to hydrate himself and avoids NSAID's. He had been having hyperuricemia and is on allopurinol. [facility] Medical History (Updated 12/21/24 @ 15:32 by Byron Pham MD) Depression Anxiety CHF (congestive heart failure) COPD (chronic obstructive pulmonary disease) Hypertension Presence of Watchman left atrial appendage closure device Surgical History H/O ankle fusion History of heart artery stent History of back surgery Family History Father Leukemia Mother Heart disease Hypertension Social History Alcohol intake: never Patient Tobacco Use Status: Former Tobacco user Review of Systems Const All systems reviewed & are unremarkable except as noted in HPI and below Physical Exam Vital Signs: Last Vital Signs Pulse 95 12/21/24 15:16 BP 130/70 12/21/24 15:16 Pulse Ox 97 12/21/24 15:16 Oxygen Delivery Method Room Air 12/21/24 15:16 BMI result Body Mass Index 28.8 Const General: comfortable and no acute distress Orientation/consciousness: patient oriented x3 HEENT Head: Yes normocephalic Mouth: Normal oral and palatal mucosa present Eyes EOM: EOMs intact bilaterally Neck Neck: Yes supple Resp Auscultation: clear to auscultation bilaterally Cardio Jugular venous distension: no JVD Rate: regular rate GI Palpation (GI): Soft to palpation Auscultation: normal bowel sounds General: Yes no CVA tenderness Back/Spine/Pelvis Back: no CVA tenderness Skin General skin exam: no rashes or lesions noted Neuro General: patient oriented x3 and moves all extremities Extrem General: Yes pedal edema Results Reviewed Nephrology Results: No Data to Display Assessment & Plan Assessment & Plan (1) Solitary kidney, acquired: Code(s): Z90.5 - Acquired absence of kidney Category: Medical (2) Edema: Code(s): R60.9 - Edema, unspecified Category: Medical Qualifiers: Edema type: unspecified Qualified Code(s): R60.9 - Edema, unspecified (3) Hypertension: Code(s): I10 - Essential (primary) hypertension Category: Medical Qualifiers: Hypertension type: primary hypertension Qualified Code(s): I10 - Essential (primary) hypertension (4) CKD (chronic kidney disease) stage 3, GFR 30-59 ml/min: Code(s): N18.30 - Chronic kidney disease, stage 3 unspecified Category: Medical Qualifiers: Chronic kidney disease stage 3 subtype: stage 3a (GFR 45-59) Qualified Code(s): N18.31 - Chronic kidney disease, stage 3a (5) Incontinence: Code(s): R32 - Unspecified urinary incontinence Category: Medical Qualifiers: Incontinence type: urinary Urinary Incontinence type: overflow incontinence Qualified Code(s): N39.490 - Overflow incontinence Plan Renal function close to baseline Mildly hypervolemic C/W Bumex 3 mg daily Increased Metalozone 5 mg to three times a week Asked to take extra 5 mg Metalozone if needed Fluid restriction. 2 Gm Na restriction, Daily weights C/W Allopurinol 200 mg daily Urology consult- ? likely over flow incontinence( needs help) F/U given ; All his & 's questions answered Orders: Orders Electrolytes 3 Months I10 - Essential (primary) hypertension, N18.31 - Chronic kidney disease, stage 3a, N39.490 - Overflow incontinence, R60.9 - Edema, unspecified, Z90.5 - Acquired absence of kidney Blood Urea Nitrogen 3 Months I10 - Essential (primary) hypertension, N18.31 - Chronic kidney disease, stage 3a, N39.490 - Overflow incontinence, R60.9 - Edema, unspecified, Z90.5 - Acquired absence of kidney Creatinine 3 Months I10 - Essential (primary) hypertension, N18.31 - Chronic kidney disease, stage 3a, N39.490 - Overflow incontinence, R60.9 - Edema, unspecified, Z90.5 - Acquired absence of kidney Referrals Urology Referral N39.490 - Overflow incontinence Coding Level of Care Code Est Pt Level 4 (51811) Diagnoses Solitary kidney, acquired Z90.5 Edema, unspecified type R60.9 Edema type: unspecified Primary hypertension I10 Hypertension type: primary hypertension Stage 3a chronic kidney disease N18.31 Chronic kidney disease stage 3 subtype: stage 3a (GFR 45-59) Overflow incontinence of urine N39.490 Incontinence type: urinary Urinary Incontinence type: overflow incontinence
[2024-12-21 15:16] VITALS: BP 130/70; PULSE 95; O2SAT 97; BMI 28.8
--- OUTSIDE RECORDS SUMMARY | 2024-12-21 18:25 | XMS_ITS | Encounter Summary ---
Author Organization [facility] Address [address] [place] [address] Care Team Providers Care Computer Forensics Investigator Name Role Phone Brennan Tyson MD Primary Care Provider Unavailabl e Orquidea See MD Unavailable Courtney Delong PA-C Unavailable Unavailab Vero Bueno MD Unavailable [phone] Encounter Details Date Type Department Care Team Description 10/14/2019 Refill Pulmonology - [place] [address] [facility] [address] [place] [phone] Eren Restrepo MD [address] [place] [phone] Social History Tobacco Use Types Packs/Day Years Used Date Smoking Tobacco: Former Cigarettes 2 Q uit: 2003 Smokeless Tobacco: Never Alcohol Use Standard Drinks/Week Comments No 0 (1 standard drink = 0.6 oz pur e alcohol) Sex Assigned at Date Recorded Male 09/29/2023 11:15 AM EST Job Start Date Occupation Industry Not on file Not on file Not on file documented as of this encounter Plan of Treatment Not on file documented as of this encounter Visit Diagnoses Not on filedocumented in this encounter Care Teams Computer Forensics Investigator Relationship Specialty Start Date End Date Brennan Tyson MD PCP - General Internal Medicine 12/18/17 Orquidea See MD Specialist Cardiology 08/07/21 Courtney Delong PA-C Cardiology 08/07/21 06/23/24 Vero Masters MD [address] [facility] [address] [place] [address] Specialist Cardiology 11/19/22 documented as of this encounter
--- OUTSIDE RECORDS SUMMARY | 2024-12-21 18:25 | XMS_ITS | Encounter Summary ---
Author Organization [facility] Address [address] [place] [address] Care Team Providers Care Contour Sander Name Role Phone Brennan Tyson MD Primary Care Provider UnavailOrquidea Duran MD Unavailable Courtney Delong PA-C Unavailable Unavailab Vero Bueno MD Unavailable Encounter Details Date Type Department Care Team Description 03/08/2019 Telephone Pulmonology - [place] [address] [facility] [address] [place] [phone] Eren Restrepo MD [address] [place] [phone] Social History Tobacco Use Types Packs/Day Years [...] on file documented as of this encounter Miscellaneous Notes * Telephone Encounter - Anya Bailey M.A. - 03/08/2019 1:56 PM EDT Cvs request an alternative for spiriva . Insurance will cover [employer] Ellipta documented in this encounter Plan of Treatment Not on file documented as of this encounter Visit Diagnoses Diagnosis Chronic obstructive pulmonary disease, unspecified COPD type (HCC)- Primary documented in this encounter Care Teams Contour Sander Relationship Specialty Start Date End Date Brennan Tyson MD PCP - General Internal Medicine 12/18/17 Orquidea See MD Specialist Cardiology 08/07/21 Courtney Delong PA-C Cardiology 08/07/21 06/23/24 Vero Masters MD [address] [place] [address] Specialist Cardiology 11/19/22 documented as of this encounter
--- OUTSIDE RECORDS SUMMARY | 2024-12-21 18:25 | XMS_ITS | Encounter Summary ---
Author Organization [facility] Address [address] [place] [address] Care Team Providers Care Net Developer Architect Name Role Phone Brennan Tyson MD Primary Care Provider UnavailOrquidea Duran MD Unavailable Courtney Delong PA-C Unavailable Unavailab Vero Bueno MD Unavailable [phone] Encounter Details Date Type Department Care Team Description 11/18/2022 Orders Only Pulmonology - [place] [address] [facility] [address] [place] [phone] Eren Restrepo MD [address] [place] [phone] Chronic obstructive pulmonary disease, unspecified COPD type (HCC) (Primary Dx) Social History Tobacco Use Types Packs/Day Years Used Date Smoking Tobacco: Former Cigarettes 2 Q uit: 2003 Smokeless Tobacco: Never Alcohol Use Standard Drinks/Week Comments No 0 (1 standard drink = 0.6 oz pur e alcohol) Sex Assigned at Date Recorded Male 09/29/2023 11:15 AM EST Job Start Date Occupation Industry Not on file Not on file Not on file COVID-19 Exposure Response Date Recorded In the last 10 days, have yo u been in contact with someone who was confirmed or suspected to have Coronavirus/COVID-19? No / Unsure 11/18/2022 3:34 PM EST documented as of this encounter Plan of Treatment Not on file documented as of this encounter Visit Diagnoses Diagnosis Chronic obstructive pulmonary disease, unspecified COPD type (HCC)- Primary documented in this encounter Care Teams Net Developer Architect Relationship Specialty Start Date End Date Brennan Tyson MD PCP - General Internal Medicine 12/18/17 Orquidea See MD Specialist Cardiology 08/07/21 Courtney Delong PA-C Cardiology 08/07/21 06/23/24 Vero Masters MD [address] [place] [address] Specialist Cardiology 11/19/22 documented as of this encounter
--- OUTSIDE RECORDS SUMMARY | 2024-12-21 18:25 | XMS_ITS | Encounter Summary ---
Author Organization [facility] Address [address] [place] [address] Care Team Providers Care De Icer Installer Name Role Phone Brennan Tyson MD Primary Care Provider Unavailabl e Orquidea See MD Unavailable Courtney Delong PA-C Unavailable Unavailab Vero Masters MD Unavailable [phone] Encounter Details Date Type Department Care Team Description 03/22/2024 Release of Information Medical Records [address] [place] [phone] [facility] Social History Tobacco Use Types Packs/Day Years [...] on filedocumented in this encounter Care Teams De Icer Installer Relationship Specialty Start Date End Date Brennan Tyson MD PCP - General Internal Medicine 12/18/17 Orquidea See MD Specialist Cardiology 08/07/21 Courtney Delong PA-C Cardiology 08/07/21 06/23/24 Vero Masters MD [address] [place], [place] [phone] Specialist Cardiology 11/19/22 documented as of this encounter
--- OUTSIDE RECORDS SUMMARY | 2024-12-21 18:25 | XMS_ITS | Encounter Summary ---
Author Organization [facility] Address [address] [place] [address] Care Team Providers Care Organic Chemistry Teacher Name Role Phone Brennan Tyson MD Primary Care Provider Brennan Schaefer MD Primary Care Provider UnavailOrquidea Duran MD Unavailable Courtney Delong PA-C Unavailable Unavailab Vero Bueno MD Unavailable [phone] Encounter Details Date Type Department Care Team Description 10/23/2012 Hospital Medical Records [address] [place] [phone] Social History Tobacco Use Types Packs/Day Years [...] on file documented as of this encounter Procedures Procedure Name Priority Date/Time Associated Diagnosis Comments OUTSIDE CARDIAC CATH Routine 10/23/2012 documented in this encounter Results * OUTSIDE CARDIAC CATH (10/23/2012) Provider Default CARDIOLOGY documented in this encounter Visit Diagnoses Not on filedocumented in this encounter Care Teams Organic Chemistry Teacher Relationship Specialty Start Date End Date Brennan Tyson MD PCP - General Internal Medicine 12/18/17 Brennan Tyson MD PCP - General 09/25/12 12/17/17 Orquidea See MD Specialist Cardiology 08/07/21 Courtney Delong PA-C Cardiology 08/07/21 06/23/24 Vero Masters MD [address] [facility] [address] [place] [address] Specialist Cardiology 11/19/22 documented as of this encounter
--- OUTSIDE RECORDS SUMMARY | 2024-12-21 18:25 | XMS_ITS ---
Author Organization [facility] Address [address] [address] Care Team Providers Care Order Department Supervisor Name Role Phone Brennan Tyson Primary Care Provider APRIL Steve Unavailable [phone] Allergies Allergen (clinical drug ingredient) Drug/Non Drug Allergy documented on EMR Reaction Allergy Type Onset Date Status Horse serum proteins AB. IGE.RAST CLASS (uncoded) Unknown Allergy Active labetalol Labetalol Unknown Drug Allergy Active Tetanus Toxoids Unknown Drug Allergy A ctive REASON FOR VISIT NEW PATIENT foot deformity/toenail trimming Medications Medication SIG (Take, Route, Frequency, Duration) Notes Start Date End Date Status Potassium Chloride Sydnee ER 10 MEQ 1 tablet with food Orally Twice a day Active Omeprazole 40 MG 1 capsule 1/2 to 1 hour before morning meal Orally Once a day Active Minoxidil 2.5 MG 1 tablet Orally Twic e a day Active metOLazone 5 MG 1 tablet Orally Two times a Week Active Melatonin 3 MG 1 tablet at bedtime as needed Orally Once a day Active Tamsulosin HCl 0.4 MG 1 capsule Orally O nce a day Active Sertraline HCl 100 MG 1 tablet Orally On ce a day Active rOPINIRole HCl 1 MG 1 tablet 1 to 3 hour s before bedtime Orally Once a day Active Albuterol Sulfate 2 puffs three times a day Active Advair Diskus 500-50 MCG/ACT 1 puff Inhalation Twice a day Active Carvedilol 25 MG 1 tablet with food Orally Twice a day Active busPIRone HCl 5 MG 1 tablet Orally Twic e a day Active Bumetanide 2 MG 1 tablet Orally Once a day Active Atorvastatin Calcium 40 MG 1 tablet Orally Once a day Active Aspirin 81 81 MG 1 tablet Orally Once a day Active Ketoconazole 2 % 1 application Externally Once a day Active Incruse Ellipta 62.5 MCG/ACT 1 puff Inhalation Once a day Active Fluticasone Propionate 50 MCG/ACT 1 spray in each nostril Nasally Twice a day Active Fenofibrate 160 MG 1 tablet Orally Once a day Active Ketotifen Fumarate 0.025% A ctive LORazepam 0.5 MG 1 tablet at bedtime as needed Orally Once a day Active Problems Problem Type SNOMED Code ICD Code Onset Dates Problem Status W/U Status Risk Notes Problem [id number] Type 2 diabetes 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) Active confirmed Problem [id number] 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 Procedures Procedure Date Ordered Date Performed Result Body Sit e Trim dystrophic toenails any number 12/15/2024 N/A Encounters Encounter Location Date Provider Diagnosis [facility] [address] [facility] [address] [place] [address] 12/15/2024 APRIL WELCHALLEY Type 2 diabetes mellitus with peripheral neuropathy E11.42 ; 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 Past medical history was reviewed. Discussed proper glucose control, exercise, and diet. I stressed the importance of a HgbA1c below 7. Explained to patient proper shoe gear and importance of daily foot checks. I stressed with the patient that they should never walk barefoot. Patient reminded that failure to cooperate with proper diabetic foot guidelines may result in the loss of toe, foot, leg, or even life. I discussed the lower extremity complications of diabetes mellitus. Reviewed peripheral neuropathy signs and symptoms along with peripheral vascular disease. I also educated the patient on the signs and symptoms of charcot arthropathy. I trimmed all ten toenails in length and thickness using a sterile nail sticker and currette. He tolerated this well. Patient will follow back in 3 mo for another DM exam. 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 He has required a shoe lift. His current shoes are old and are causing left midfoot irritation and jamming of the left toes. He needs a new pair of shoes with a left external lift to avoid further irritation and skin break down. I have sent over a Rx for these. 12/15/2024 Toe pain, left (ICD-10 - M79.675) 12/15/2024 Arthrosis of left midfoot (ICD-10 - M19.072) 12/15/2024 Tinea unguium (ICD-10 - B35.1) Plan Of Treatment Treatment Notes Assessment Notes Type 2 diabetes mellitus wit h peripheral neuropathy Patient examined and evaluated today. Musa brown medical history was reviewed. Discussed proper glucose control, exercise, and diet. I stressed the importance of a HgbA1c below 7. Explained to patient proper shoe gear and importance of daily foot checks. I stressed with the patient that they should never walk barefoot. Patient reminded that failure to cooperate with proper diabetic foot guidelines may result in the loss of toe, foot, leg, or even life. I discussed the lower extremity complications of diabetes mellitus. Reviewed peripheral neuropathy signs and symptoms along with peripheral vascular disease. I also educated the patient on the signs and symptoms of charcot arthropathy. I trimmed all ten toenails in length and thickness using a sterile nail sticker and currette. He tolerated this well. Patient will follow back in 3 mo for another DM exam. Acquired inequality of lengt h of extremity Patient has unequal limb length with thomas rter left limb. He has required a shoe lift. His current shoes are old and are causing left midfoot irritation and jamming of the left toes. He needs a new pair of shoes with a left external lift to avoid further irritation and skin break down. I have sent over a Rx for these. Pending Test Test Name Order Date Trim dystrophic toenails any number 11/21 Next Appt Details Follow Up: 3 Months, Reason: Provider Name:APRIL TORREZ, 03/17/2025 10:30:00 AM, [address], [address], Progress Notes * Keo JACINTODOB:1950 (74 yo M)Acc No.[id number]:12/15/2024 Patient:?Keo JACINTO Provider:?April Díaz DPFlora :1950???Age:74 Y???Sex:Male Robert e:12/15/2024 Phone: Address:[address], [facility], [id number] Pcp:Brennan Tyson Subjective: * Chief Complaints: * ???NEW PATIENT foot deformit y/toenail trimming * HPI: ???Foot & Ankle:?Mr. Jacinto is a pleasant 74 year old male who presents for a consultation. He is here with his daughter. He is a type 2 diabetic and has a lot of lower limb abnormalities. 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 He has a severe limb length descrepancy with the left limb quite a bit shorter than the right. He wears an external lift on his shoe, but has not had new shoes in many years. He finds that the current shoe causes him to lean more forward and this has created pressure to all the toes on the left and the midfoot region. His daughter has been applying a bandage over the midfoot area that is painful. This is minimally helpful. She has noticed that the area is very red and worries it will break down into a wound. He also has pain around all the toenails. He denies any swelling or drainage from the nails. He last saw his PCP team on 04/25/24. Last HgbA1c was 5.7. * ROS:?General/Constitutional:?Denies?Chills.?Denies?Fatigue.?Denies?Fever.?Denies?Headache.?Allergy/Immunology:?Denies?Hives.?Denies?Itching.?Denies?Rash.?Endocrine:?Denies?Excessive sweating.?Denies?Excessive thirst.?Denies?Frequent urination.?Respiratory:?Denies?Cough.?Denies?Shortness of breath,?denies.?Denies?Wheezing.?Cardiovascular:?Denies?Chest pain.?Denies?Claudication.?Denies?Cyanosis.?Gastrointestinal:?Denies?Abdominal pain.?Denies?Constipation.?Denies?Diarrhea.?Hematology:?Denies?Bleeding problems,?denies.?Denies?Easy bruising,?denies.?Denies?Swollen glands.?Musculoskeletal:?Patient complaining of?shorter limb on left side with midfoot pain. Pain to all toes.?Admits?Arthritis/Arthralgia.?Admits?Joint stiffness.?Admits?Weakness.?Peripheral Vascular:?Denies?Blanching of skin.?Blood clots in legs?Denies.?Denies?Cold extremities.?Skin:?Denies?Masses.?Denies?Nail changes.?Denies?Skin lesion(s).?Neurologic:?Denies?Paralysis.?Denies?Tingling/Numbness.?Denies?Tremor.?Psychiatric:?Denies?Auditory/visual hallucinations.?Denies?Delusions.?Denies?Suicidal thoughts.? * Medical History:? * Surgical History:?adenoidect julio laparoscopy, surgical, gastric restrictive procedure; longitudinal gastrectomy tonsillectomy adrenalectomy * Hospitalization/Major Diagno stic Procedure:?pneumonia 1 week. 10/19/2024 * Family History:?Father: dece ased, chronic lymphocytic leukemia.?Mother: , CAD, Hypertension.?Siblings: Brother: HypertensionSister : () Hypertension.?1 brother(s) , 1 sister(s) . .? * Social History:?Tobacco: Quit in 2006 Alcohol: Never. * Medications:?TakingTamsulosi n HCl 0.4 MG Capsule 1 capsule Orally Once a day Sertraline HCl 100 MG Tablet 1 tablet Orally Once a day rOPINIRole HCl 1 MG Tablet 1 tablet 1 to 3 hours before bedtime Orally Once a day Potassium Chloride Sydnee ER 10 MEQ Tablet Extended Release 1 tablet with food Orally Twice a day Omeprazole 40 MG Capsule Delayed Release 1 capsule 1/2 to 1 hour before morning meal Orally Once a day Minoxidil 2.5 MG Tablet 1 tablet Orally Twice a day metOLazone 5 MG Tablet 1 tablet Orally Two times a Week Melatonin 3 MG Tablet 1 tablet at bedtime as needed Orally Once a day LORazepam 0.5 MG Tablet 1 tablet at bedtime as needed Orally Once a day Ketotifen Fumarate , Notes to Pharmacist: 0.025%Ketoconazole 2 % Cream 1 application Externally Once a day Incruse Ellipta 62.5 MCG/ACT Aerosol Powder Breath Activated 1 puff Inhalation Once a day Fluticasone Propionate 50 MCG/ACT Suspension 1 spray in each nostril Nasally Twice a day Fenofibrate 160 MG Tablet 1 tablet Orally Once a day Carvedilol 25 MG Tablet 1 tablet with food Orally Twice a day busPIRone HCl 5 MG Tablet 1 tablet Orally Twice a day Bumetanide 2 MG Tablet 1 tablet Orally Once a day Atorvastatin Calcium 40 MG Tablet 1 tablet Orally Once a day Aspirin 81 81 MG Tablet Delayed Release 1 tablet Orally Once a day Albuterol Sulfate , Notes to Pharmacist: 2 puffs three times a dayAdvair Diskus 500-50 MCG/ACT Aerosol Powder Breath Activated 1 puff Inhalation Twice a day Medication List reviewed and reconciled with the patientTaking Tamsulosin HCl 0.4 MG Capsule 1 capsule Orally Once a day Taking Sertraline HCl 100 MG Tablet 1 tablet Orally Once a day Taking rOPINIRole HCl 1 MG Tablet 1 tablet 1 to 3 hours before bedtime Orally Once a day Taking Potassium Chloride Sydnee ER 10 MEQ Tablet Extended Release 1 tablet with food Orally Twice a day Taking Omeprazole 40 MG Capsule Delayed Release 1 capsule 1/2 to 1 hour before morning meal Orally Once a day Taking Minoxidil 2.5 MG Tablet 1 tablet Orally Twice a day Taking metOLazone 5 MG Tablet 1 tablet Orally Two times a Week Taking Melatonin 3 MG Tablet 1 tablet at bedtime as needed Orally Once a day Taking LORazepam 0.5 MG Tablet 1 tablet at bedtime as needed Orally Once a day Taking Ketotifen Fumarate , Notes to Pharmacist: 0.025%Taking Ketoconazole 2 % Cream 1 application Externally Once a day Taking Incruse Ellipta 62.5 MCG/ACT Aerosol Powder Breath Activated 1 puff Inhalation Once a day Taking Fluticasone Propionate 50 MCG/ACT Suspension 1 spray in each nostril Nasally Twice a day Taking Fenofibrate 160 MG Tablet 1 tablet Orally Once a day Taking Carvedilol 25 MG Tablet 1 tablet with food Orally Twice a day Taking busPIRone HCl 5 MG Tablet 1 tablet Orally Twice a day Taking Bumetanide 2 MG Tablet 1 tablet Orally Once a day Taking Atorvastatin Calcium 40 MG Tablet 1 tablet Orally Once a day Taking Aspirin 81 81 MG Tablet Delayed Release 1 tablet Orally Once a day Taking Albuterol Sulfate , Notes to Pharmacist: 2 puffs three times a dayTaking Advair Diskus 500-50 MCG/ACT Aerosol Powder Breath Activated 1 puff Inhalation Twice a day Medication List reviewed and reconciled with the patient * Allergies:?Horse serum prote ins AB. IGE.RAST CLASS: AllergyLabetalol: AllergyTetanus Toxoids: Allergyno[Allergies Verified] Objective: * Vitals:? * Examination: ???General Examination: ???This is an elderly male. Alert and oriented today and in no acute distress. Patient comes in a wheelchair today. Breathing is regular and unlabored while sitting. Affect is pleasant and cooperative. No unusual anxiety or depression noted. Hearing intact to spoken word. No evidence of visual impairment that would impact self care or ambulation. Patient has nonpalpable dorsalis pedis and posterior tibial pulse bilaterally. ON doppler the pulses are biphasic bilaterally. No peripheral edema present. No cyanosis, rubor, or eschars to the toes on either foot. The left limb is clearly shorter than the right. The ankle and subtalar region is rigid on the left. There is a dorsal area to the left midfoot that is hyperemic from rubbing. There is palpable hypertrophy to this region. It is tender. No open wounds. All toes on the left had slight flexion deformities with thickening of the distal nail plates. The left 2nd nail is the most thickened. The right foot has a pes planus deformity with mild restriction of the ankle and subtalar joints on range of motion. There is some adductovarus of the right 4th and 5th toes. Toenails on the right have slight thickening and discoloration. There is also hypertrophy to the right midfoot without any skin irritation. Dermal atrophy to both lower extremities. There is a loss of protective sensation to the plantar aspect of both feet when testing with a semmes-douglas monofilament bilaterally.??4/5 strength for anterior, posterior, and lateral lower extremity muscle groups on the left and right. Assessment: * Assessment: 1.?Type 2 diabetes mellitus with peripheral neuropathy - E11.42 (Primary)???2.?Acquired inequality of length of extremity - M21.70???3.?Toe pain, left - M79.675???4.?Arthrosis of left midfoot - M19.072???5.?Tinea unguium - B35.1??? Plan: * Treatment: 2.?Acquired inequality of le ngth of extremity? Notes: Patient has unequal limb length with shorter left limb. He has required a shoe lift. His current shoes are old and are causing left midfoot irritation and jamming of the left toes. He needs a new pair of shoes with a left external lift to avoid further irritation and skin break down. I have sent over a Rx for these. ?? 3.?Tinea unguium?Procedure: Trim dystrophic toenails any number * Procedure Codes:?G0127 TAB ING DYSTROPHIC NAILS ANY #, Modifiers: Q8 * Follow Up:?3 Months * Billing Information: * Visit Code:? 13391 Office Visit, New Pt., Level 3. Modifiers: 25 * Procedure Codes:? G0127 TRIMMING DYSTROPHIC NAILS ANY #. Modifiers: Q8 * Sign off status: Completed true * Provider:?April Díaz DPM Date:?12/15 Generated for Chaz webster/Yuridia/eTransmitting on:?12/21/2024 06:25 PM EST History and Physical Notes * Examination Category Sub-Category Detail Notes Category Not es General Examination This is an elderly male. Alert and oriented today and in no acute distress. Patient comes in a wheelchair today. Breathing is regular and unlabored while sitting. Affect is pleasant and cooperative. No unusual anxiety or depression noted. Hearing intact to spoken word. No evidence of visual impairment that would impact self care or ambulation. Patient has nonpalpable dorsalis pedis and posterior tibial pulse bilaterally. ON doppler the pulses are biphasic bilaterally. No peripheral edema present. No cyanosis, rubor, or eschars to the toes on either foot. The left limb is clearly shorter than the right. The ankle and subtalar region is rigid on the left. There is a dorsal area to the left midfoot that is hyperemic from rubbing. There is palpable hypertrophy to this region. It is tender. No open wounds. All toes on the left had slight flexion deformities with thickening of the distal nail plates. The left 2nd nail is the most thickened. The right foot has a pes planus deformity with mild restriction of the ankle and subtalar joints on range of motion. There is some adductovarus of the right 4th and 5th toes. Toenails on the right have slight thickening and discoloration. There is also hypertrophy to the right midfoot without any skin irritation. Dermal atrophy to both lower extremities. There is a loss of protective sensation to the plantar aspect of both feet when testing with a semmes-douglas monofilament bilaterally. 4/5 strength for anterior, posterior, and lateral lower extremity muscle groups on the left and right.
--- OUTSIDE RECORDS SUMMARY | 2024-12-21 18:25 | XMS_ITS | Encounter Summary ---
Author Organization [facility] Address [address] [place] [address] Care Team Providers Care Loan Approver Name Role Phone Brennan Tyson MD Primary Care Provider Brennan Schaefer MD Primary Care Provider Unavailabl e Orquidea See MD Unavailable Courtney Delong PA-C Unavailable Unavailab Vero Bueno MD Unavailable [phone] Encounter Details Date Type Department Care Team Description 08/11/2017 [facility] Medical Records [address] [place] [id number] Orquidea See MD [address] [place] [id number] Social History Tobacco Use Types Packs/Day Years Used Date Smoking Tobacco: Never Assessed Sex Assigned at Date Recorded Male 09/29/2023 11:15 AM EST Job Start Date Occupation Industry Not on file Not on file Not on file documented as of this encounter Plan of Treatment Not on file documented as of this encounter Procedures Procedure Name Priority Date/Time Associated Diagnosis Comments OUTSIDE HOLTER MONITOR Routine 08/11/2017 documented in this encounter Results * OUTSIDE HOLTER MONITOR (08/11/2017) Provider Default CARDIOLOGY documented in this encounter Visit Diagnoses Not on filedocumented in this encounter Care Teams Loan Approver Relationship Specialty Start Date End Date Brennan Tyson MD PCP - General Internal Medicine 12/18/17 Brennan Tyson MD PCP - General 09/25/12 12/17/17 Orquidea See MD Specialist Cardiology 08/07/21 Courtney Delong PA-C Cardiology 08/07/21 06/23/24 Vero Masters MD [address] [facility] [address] [place] [address] Specialist Cardiology 11/19/22 documented as of this encounter
--- OUTSIDE RECORDS SUMMARY | 2024-12-21 18:25 | XMS_ITS | Encounter Summary ---
Author Organization [facility] Address [address] [place] [address] Care Team Providers Care Funeral Planning Counselor Name Role Phone Brennan Tyson MD Primary Care Provider UnavailOrquidea Duran MD Unavailable Courtney Delong PA-C Unavailable Unavailab Vero Bueno MD Unavailable [phone] Encounter Details Date Type Department Care Team Description 12/23/2019 [facility] Medical Records [address] [place] [address] Tato Everett MD [address] [facility] [address] [place] [address] Social History Tobacco Use Types Packs/Day Years [...] Name Priority Date/Time Associated Diagnosis Comments OUTSIDE NUCLEAR STRESS TEST Routine 12/23/2019 documented in this encounter Results * OUTSIDE NUCLEAR STRESS TEST (12/23/2019) Provider Default CARDIOLOGY documented in this encounter Visit Diagnoses Not on filedocumented in this encounter Care Teams Funeral Planning Counselor Relationship Specialty Start Date End Date Brennan Tyson MD PCP - General Internal Medicine 12/18/17 Orquidea See MD Specialist Cardiology 08/07/21 Courtney Delong PA-C Cardiology 08/07/21 06/23/24 Vero Masters MD [address] [place] [address] Specialist Cardiology 11/19/22 documented as of this encounter
--- OUTSIDE RECORDS SUMMARY | 2024-12-21 18:25 | XMS_ITS | Encounter Summary ---
Author Organization [facility] Address [address] [place] [address] Care Team Providers Care Hr Internship Name Role Phone Brennan Tyson MD Primary Care Provider [phone] Reason for Visit * Reason Onset Date Comments CONFIRM O2 10/25/2024 Encounter Details Date Type Department Care Team (Late st Contact Info) Description 10/25/2024 Telephone [facility] [place] [address] [place] [id number] Eren Restrepo MD [address] [place] [address] CONFIRM O2 Social History Tobacco Use Types Packs/Day Years Used Date Smoking Tobacco: Former Cigarettes Q uit: 10/20/2003 Smokeless Tobacco: Never Alcohol Use Standard Drinks/Week Comments No 0 (1 standard drink = 0.6 oz pur e alcohol) Sex and Gender Information Value Date Recorded Sex Assigned at Not on file Legal Sex Male 9:44 AM EST Gender Identity Not on file Sexual Orientation Not on file documented as of this encounter Progress Notes * Darrian Vallecillo [place] - 10/25/2024 1:03 PM EST Spoke to mely. Pt does uses O2 everyday. Pt uses 2 lites of oxygen. Pt get 02 from [facility]. Pt is allset. * Allan Salvador - 10/25/2024 11:28 AM EST Patient was inpatient 10/19/24-discharged 10/22/24 to [facility] health due to micro plasma pneumonia. Brynn called to vrify if patient is currently on O2. If any question please call Mely [phone] documented in this encounter Plan of Treatment Upcoming Encounters Date Type Department Care Team (Late st Contact Info) Description 12/30/2024 1:00 PM EDT Office Visit Pulmonolgy - [place] [address] [place] [address] Eren Restrepo MD [address] [place] [address] documented as of this encounter Visit Diagnoses Not on filedocumented in this encounter Care Teams Hr Internship Relationship Specialty Start Date End Date Brennan Tyson MD [address] [place] [address] PCP - General Internal Medicine 09/25/12 documented as of this encounter
--- OUTSIDE RECORDS SUMMARY | 2024-12-21 18:25 | XMS_ITS | Encounter Summary ---
Author Organization [facility] Address [address] [place] [address] Care Team Providers Care Phlebotomist Associate Name Role Phone Brennan Tyson MD Primary Care Provider Unavailabl e Orquidea See MD Unavailable Courtney Delong PA-C Unavailable Unavailab Vero Bueno MD Unavailable [phone] Encounter Details Date Type Department Care Team Description 12/23/2017 Release of Information Medical Records [address] [place] [id number] Abstract, Provider Social History Tobacco Use Types Packs/Day Years Used Date Smoking Tobacco: Former Cigarettes 2 Q uit: 2004 Alcohol Use Standard Drinks/Week Comments No 0 [...] on filedocumented in this encounter Care Teams Phlebotomist Associate Relationship Specialty Start Date End Date Brennan Tyson MD PCP - General Internal Medicine 12/18/17 Orquidea See MD Specialist Cardiology 08/07/21 Courtney Delong PA-C Cardiology 08/07/21 06/23/24 Vero Masters MD [address] [place] [address] Specialist Cardiology 11/19/22 documented as of this encounter
--- OUTSIDE RECORDS SUMMARY | 2024-12-21 18:25 | XMS_ITS | Encounter Summary ---
Author Organization [facility] Address [address] [place] [address] Care Team Providers Care Magneto Electrician Name Role Phone Brennan Tyson MD Primary Care Provider [phone] Encounter Details Date Type Department Care Team (Late Contact Info) Description 10/25/[address] [facility] - Main Lab 299 [facility] [place] [address] Radha Gonzales MD [address] [place] [address] Encounter for other general examination Social History Tobacco Use Types Packs/Day Years [...] as of this encounter Plan of Treatment Upcoming Encounters Date Type Department Care Team (Late Contact Info) Description 12/30/2024 1:00 PM EDT [facility] [address] [address] Eren Restrepo MD 175 [facility] 200 [place] [address] documented as of this encounter Procedures Procedure Name Priority Date/Time Associated Diagnosis Comments MANUAL DIFFERENTIAL - SYSMEX WAM Routine 10/25/2024 6:59 AM EST Encounter for other general examination CBC WITH AUTO DIFFERENTIAL Routine 10/25/2024 6:59 AM EST Encounter for other general examination CBC AND DIFFERENTIAL Routine 10/25/2024 6:59 AM EST Encounter for other general examination BASIC METABOLIC PANEL Routine 10/25/2024 6:59 AM EST Encounter for other general examination documented in this encounter Results * (ABNORMAL) Manual differential (10/25/2024 6:59 AM EST) Neutrophils % 93.0 % LAB HEMETOLOGY METHOD 10/25/2024 2:21 PM [facility] Bands % 1.0 % LAB HEMETOLOGY METHOD 10/25/2024 2:21 PM [facility] Lymphocytes % 4.0 % LAB HEMETOLOGY METHOD 10/25/2024 2:21 PM [facility] Monocytes % 2.0 % LAB HEMETOLOGY METHOD 10/25/2024 2:21 PM [facility] Eosinophils % 0.0 % LAB HEMETOLOGY METHOD 10/25/2024 2:21 PM [facility] Basophils % 0.0 % LAB HEMETOLOGY METHOD 10/25/2024 2:21 PM [facility] Myelocytes % 1.0(H) % LAB HEMETOLOGY METHOD 10/25/2024 2:21 PM [facility] Neutrophils Absolute Manual 21.20(H) 1.50 - 7.00 K/mcL LAB HEMETOLOGY METHOD 10/25/2024 2:21 PM [facility] Bands Absolute Manual 0.23(H) 0.00 - 0.00 K/mcL LAB HEMETOLOGY METHOD 10/25/2024 2:21 PM [facility] Lymphocytes Absolute 0.91(L) 1.00 - 5.00 K/mcL LAB HEMETOLOGY METHOD 10/25/2024 2:[address] [facility] Monocytes Absolute Manual 0.46 0.20 - 1.00 K/mcL LAB HEMETOLOGY METHOD 10/25/2024 2:21 PM [facility] Eosinophils Absolute Manual 0.00 0.00 - 0.50 K/mcL LAB HEMETOLOGY METHOD 10/25/2024 2:21 PM [facility] Basophils Absolute Manual 0.00 0.00 - 0.20 K/mcL LAB HEMETOLOGY METHOD 10/25/2024 2:21 PM [facility] Myelocytes Absolute Manual 0.23(H) 0.00 - 0.00 K/mcL LAB HEMETOLOGY METHOD 10/25/2024 2:21 PM [facility] Rbc Morphology Present( A) Consistent with indices, Normal for [place] LAB HEMETOLOGY METHOD 10/25/2024 2:21 PM [facility] Platelet Morphology - WAM See Note(A) Normal LAB HEMETOLOGY METHOD 10/25/2024 2:[address] [facility] Comment:PLT: Normal Schistocytes Present < 5%(A) (none) LAB HEMETOLOGY METHOD 10/25/2024 2:21 PM [facility] Blood Venous blood specimen / Unknown Venipuncture / Unknown 10/25/2024 6:59 AM EST 10/25/2024 12:46 PM EST us Radha Gonzales MD LAB BLOOD ORDERABLES Final Res ult [facility] [address] [place] [address], * (ABNORMAL) CBC auto differential (10/25/2024 6:59 AM EST) WBC 22.8(H) 4.8 - 10.8 K/mcL LAB HEMETOLOGY METHOD 10/25/2024 2:21 PM [facility] RBC 4.10(L) 4.50 - 5.50 M/mcL LAB HEMETOLOGY METHOD 10/25/2024 2:21 PM [facility] Hemoglobin 10.6(L) 13.5 - 17.5 g/dL LAB HEMETOLOGY METHOD 10/25/2024 2:21 PM [facility] Hematocrit 36.5(L) 42.0 - 54.0 % LAB HEMETOLOGY METHOD 10/25/2024 2:21 PM [facility] MCV 89.0 79.0 - 98.0 FL LAB HEMETOLOGY METHOD 10/25/2024 2:21 PM [facility] MCH 25.9(L) 27.0 - 32.0 pcg LAB HEMETOLOGY METHOD 10/25/2024 2:21 PM [facility] MCHC 29.0(L) 32.0 - 37.0 g/dL LAB HEMETOLOGY METHOD 10/25/2024 2:21 PM [facility] RDW 18.9(H) 11.0 - 15.0 % LAB HEMETOLOGY METHOD 10/25/2024 2:21 PM [facility] Platelets 432(H) 130 - 400 K/mcL LAB HEMETOLOGY METHOD 10/25/2024 2:21 PM [facility] MPV 11.9(H) 7.0 - 11.0 FL LAB HEMETOLOGY METHOD 10/25/2024 2:21 PM [facility] NRBC 0.1 <1.0 % LAB HEMETOLOGY METHOD 10/25/2024 2:21 PM [facility] NRBC Absolute 0.02 <0.10 K/mcL LAB HEMETOLOGY METHOD 10/25/2024 2:21 PM EST [facility] Blood Venous blood specimen / Unknown Venipuncture / Unknown 10/25/2024 6:59 AM EST 10/25/2024 12:46 PM EST us Radha Gonzales MD LAB BLOOD ORDERABLES Final Res ult [facility] [address] [place] [address], * (ABNORMAL) Basic metabolic panel (10/25/2024 6:59 AM EST) Sodium 143 133 - 145 mmol/L LAB CHEMISTRY METHOD 10/25/2024 1:34 PM [facility] Potassium 3.1(L) 3.5 - 5.5 mmol/L LAB CHEMISTRY METHOD 10/25/2024 1:34 PM [facility] Chloride 103 96 - 110 mmol/L LAB CHEMISTRY METHOD 10/25/2024 1:34 PM [facility] CO2 32 21 - 32 mmol/L LAB CHEMISTRY METHOD 10/25/2024 1:34 PM [facility] Anion Gap 8 3 - 11 LAB CHEMISTRY METHOD 10/25/2024 1:34 PM [facility] Glucose 68(L) 70 - 100 mg/dL LAB CHEMISTRY METHOD 10/25/2024 1:34 PM [facility] BUN 75(H) 5 - 25 mg/dL LAB CHEMISTRY METHOD 10/25/2024 1:34 PM [facility] Creatinine 1.67(H) 0.70 - 1.30 mg/dL LAB CHEMISTRY METHOD 10/25/2024 1:34 PM [facility] eGFR 43(L) >=60 mL/min/1. 73m2 LAB CHEMISTRY METHOD 10/25/2024 1:34 PM [facility] Comment:Calculation based on the??Chronic Kidney Disease Epidemiology Collaboration (CKD-EPI) equation refit??without adjustment for race. BUN/Creatinine Ratio 44.9 LAB CHEMISTRY METHOD 10/25/2024 1:[address] [facility] Calcium 9.1 8.5 - 10.5 mg/dL LAB CHEMISTRY METHOD 10/25/2024 1:[address] [facility] Blood Venous blood specimen / Unknown Venipuncture / Unknown 10/25/2024 6:59 AM EST 10/25/2024 12:46 PM EST us Radha Gonzales MD LAB BLOOD ORDERABLES Final Res ult [facility] [address] [place] [address], documented in this encounter Visit Diagnoses Diagnosis Encounter for other general examination documented in this encounter Care Teams Magneto Electrician Relationship Specialty Start Date End Date Brennan Tyson MD [address] [place] [address] PCP - General Internal Medicine 09/25/12 documented as of this encounter
--- OUTSIDE RECORDS SUMMARY | 2024-12-21 18:25 | XMS_ITS | Encounter Summary ---
Author Organization [facility] Address [address] [place] [address] Care Team Providers Care Family And Consumer Sciences Professor Name Role Phone Brennan Tyson MD Primary Care Provider UnavailOrquidea Duran MD Unavailable Courtney Delong PA-C Unavailable Unavailab Vero Bueno MD Unavailable [phone] Reason for Visit * Reason Comments E-prescribe Rx Request Encounter Details Date Type Department Care Team Description 02/26/2024 Refill Pulmonology - [place] 175 [facility] [address] [place] [phone] Eren Restrepo MD 175 [place] [phone] E-prescribe Rx Request Social History Tobacco Use Types Packs/Day Years [...] encounter Miscellaneous Notes * Telephone Encounter - Lizbet Mcduffie - 02/26/2024 10:06 AM EDT Joseph: 02/12/2024 Nov: 08/12/2024 documented in this encounter Plan of Treatment Not on file documented as of this encounter Visit Diagnoses Diagnosis Chronic obstructive pulmonary disease, unspecified COPD type (HCC) documented in this encounter Care Teams Family And Consumer Sciences Professor Relationship Specialty Start Date End Date Brennan Tyson MD PCP - General Internal Medicine 12/18/17 Orquidea See MD Specialist Cardiology 08/07/21 Courtney Delong PA-C Cardiology 08/07/21 06/23/24 Vero Masters MD [address] [place] [address] Specialist Cardiology 11/19/22 documented as of this encounter
--- OUTSIDE RECORDS SUMMARY | 2024-12-21 18:25 | XMS_ITS | Encounter Summary ---
Author Organization [facility] Address [address] [place] [address] Care Team Providers Care Lawyers Name Role Phone Brennan Tyson MD Primary Care Provider Unavailabl Orquidea Gagnon MD Unavailable Courtney Delong PA-C Unavailable Unavailab Vero Bueno MD Unavailable [phone] Encounter Details Date Type Department Care Team Description 12/09/2022 SCAN Medical Records [address] [place] [address] Byron Pham MD Social History Tobacco Use Types Packs/Day Years [...] Recorded In the last 10 days, have maritza u been in contact with someone who was confirmed or suspected to have Coronavirus/COVID-19? No / Unsure 11/18/2022 3:34 PM EST documented as of this encounter Plan of Treatment Not on file documented as of this encounter Procedures Procedure Name Priority Date/Time Associated Diagnosis Comments OUTSIDE LAB Routine 12/09/2022 documented in this encounter Results * OUTSIDE LAB (12/09/2022) Provider Abstract LAB documented in this encounter Visit Diagnoses Not on filedocumented in this encounter Care Teams Lawyers Relationship Specialty Start Date End Date Brennan Tyson MD PCP - General Internal Medicine 12/18/17 Orquidea See MD Specialist Cardiology 08/07/21 Courtney Delong PA-C Cardiology 08/07/21 06/23/24 Vero Masters MD [address] [place] [address] Specialist Cardiology 11/19/22 documented as of this encounter
--- OUTSIDE RECORDS SUMMARY | 2024-12-21 18:25 | XMS_ITS | Encounter Summary ---
Author Organization [facility] Address [address] [place] [address] Care Team Providers Care Food Service Lead Name Role Phone Brennan Tyson MD Primary Care Provider [phone] Encounter Details Date Type Department Care Team (Late Contact Info) Description 10/30/2024 Lab Requisition [facility] - Main Lab 299 [facility] [place] [address] Radha Gonzales MD [address] [place] [address] Encounter for other general examination Social History [...] Description 12/30/2024 1:00 PM EDT [facility] [address] [address] Eren Restrepo MD 175 [facility] [address] [place] [address] documented as of this encounter Procedures Procedure Name Priority Date/Time Associated Diagnosis Comments CULTURE BLOOD Routine 10/30/2024 6:07 AM EST Encounter for other general examination documented in this encounter Results * Culture blood (10/30/2024 6:07 AM EST) Culture, Blood No growth at 5 days 11/04/2024 11:01 AM EST [facility] Blood Venous blood specimen / Unknown Venipuncture / Unknown 10/30/2024 6:07 AM EST 10/30/2024 9:05 AM EST us Radha Gonzales MD LAB MICROBIOLOGY - GENERAL ORD ERABLES Final Result [facility] [address] [place] [address], documented in this encounter Visit Diagnoses Diagnosis Encounter for other general examination documented in this encounter Care Teams Food Service Lead Relationship Specialty Start Date End Date Brennan Tyson MD [address] [place] [address] PCP - General Internal Medicine 09/25/12 documented as of this encounter
--- OUTSIDE RECORDS SUMMARY | 2024-12-21 18:25 | XMS_ITS | Encounter Summary ---
Author Organization [facility] Address [address] [place] [address] Care Team Providers Care Turner Off Name Role Phone Brennan Tyson MD Primary Care Provider UnavailOrquidea Duran MD Unavailable Courtney Delong PA-C Unavailable Unavailab Vero Bueno MD Unavailable [phone] Encounter Details Date Type Department Care Team Description 09/19/2022 SCAN Medical Records [address] [place] [address] Abstract, Provider Social History Tobacco Use Types [...] suspected to have Coronavirus/COVID-19? No / Unsure 09/09/2022 9:52 AM EST documented as of this encounter Plan of Treatment Not on file documented as of this encounter Procedures Procedure Name Priority Date/Time Associated Diagnosis Comments OUTSIDE EKG Routine 09/19/2022 documented in this encounter Results * OUTSIDE EKG (09/19/2022) Provider Default CARDIOLOGY documented in this encounter Visit Diagnoses Not on filedocumented in this encounter Care Teams Turner Off Relationship Specialty Start Date End Date Brennan Tyson MD PCP - General Internal Medicine 12/18/17 Oqruidea See MD Specialist Cardiology 08/07/21 Courtney Delong PA-C Cardiology 08/07/21 06/23/24 Vero Masters MD [address] [place] [address] Specialist Cardiology 11/19/22 documented as of this encounter
--- OUTSIDE RECORDS SUMMARY | 2024-12-21 18:25 | XMS_ITS | Encounter Summary ---
Author Organization [facility] Address [address] [place] [address] Care Team Providers Care Senior Windows Systems Administrator Name Role Phone Brennan Tyson MD Primary Care Provider [phone] Encounter Details Date Type Department Care Team (Late Contact Info) Description 10/30/[address] [facility] - Main Lab 299 [facility] [place] [address] Radha Gonzales MD [address] [place] [address] Encounter for other general examination Social History [...] Description 12/30/2024 1:00 PM EDT [facility] [address] [address] Eren Restrepo MD 175 [facility] 200 [place] [address] documented as of this encounter Procedures Procedure Name Priority Date/Time Associated Diagnosis Comments CBC WITH AUTO DIFFERENTIAL Routine 10/30/2024 6:01 AM EST Encounter for other general examination CULTURE BLOOD Routine 10/30/2024 6:01 AM EST Encounter for other general examination CBC AND DIFFERENTIAL Routine 10/30/2024 6:01 AM EST Encounter for other general examination BASIC METABOLIC PANEL Routine 10/30/2024 6:01 AM EST Encounter for other general examination documented in this encounter Results * (ABNORMAL) CBC auto differential (10/30/2024 6:01 AM EST) [facility] WBC 22.5(H) 4.8 - 10.8 K/mcL LAB HEMETOLOGY METHOD 10/30/2024 9:43 AM [facility] RBC 4.00(L) 4.50 - 5.50 M/mcL LAB HEMETOLOGY METHOD 10/30/2024 9:43 AM [facility] Hemoglobin 10.3(L) 13.5 - 17.5 g/dL LAB HEMETOLOGY METHOD 10/30/2024 9:43 AM [facility] Hematocrit 35.0(L) 42.0 - 54.0 % LAB HEMETOLOGY METHOD 10/30/2024 9:43 AM [facility] MCV 86.6 79.0 - 98.0 FL LAB HEMETOLOGY METHOD 10/30/2024 9:43 AM [facility] MCH 25.5(L) 27.0 - 32.0 pcg LAB HEMETOLOGY METHOD 10/30/2024 9:43 AM [facility] MCHC 29.4(L) 32.0 - 37.0 g/dL LAB HEMETOLOGY METHOD 10/30/2024 9:43 AM [facility] RDW 18.9(H) 11.0 - 15.0 % LAB HEMETOLOGY METHOD 10/30/2024 9:43 AM [facility] Platelets 477(H) 130 - 400 K/mcL LAB HEMETOLOGY METHOD 10/30/2024 9:43 AM [facility] MPV 11.8(H) 7.0 - 11.0 FL LAB HEMETOLOGY METHOD 10/30/2024 9:43 AM [facility] NRBC 0.1 <1.0 % LAB HEMETOLOGY METHOD 10/30/2024 9:43 AM [facility] NRBC Absolute 0.02 <0.10 K/mcL LAB HEMETOLOGY METHOD 10/30/2024 9:43 AM [facility] Neutrophils Relative 86.9 % LAB HEMETOLOGY METHOD 10/30/2024 9:43 AM [facility] Lymphocytes Relative 4.5 % LAB HEMETOLOGY METHOD 10/30/2024 9:43 AM [facility] Monocytes Relative 2.4 % LAB HEMETOLOGY METHOD 10/30/2024 9:43 AM [facility] Eosinophils Relative 2.2 % LAB HEMETOLOGY METHOD 10/30/2024 9:43 AM [facility] Basophils Relative 0.6 % LAB HEMETOLOGY METHOD 10/30/2024 9:43 AM [facility] Immature Granulocytes Relative 3.4 % LAB HEMETOLOGY METHOD 10/30/2024 9:43 AM [facility] Neutrophils Absolute 19.51(H) 1.50 - 7.00 K/mcL LAB HEMETOLOGY METHOD 10/30/2024 9:43 AM [facility] Lymphocytes Absolute 1.02 1.00 - 5.00 K/mcL LAB HEMETOLOGY METHOD 10/30/2024 9:43 AM [facility] Monocytes Absolute 0.54 0.20 - 1.00 K/mcL LAB HEMETOLOGY METHOD 10/30/2024 9:43 AM [facility] Eosinophils Absolute 0.50 0.00 - 0.50 K/[facility] LAB HEMETOLOGY METHOD 10/30/2024 9:43 AM EST [facility] Basophils Absolute 0.13 0.00 - 0.20 K/[facility] LAB HEMETOLOGY METHOD 10/30/2024 9:43 AM EST [facility] Immature Granulocytes Absolute 0.76(H) 0.00 - 0.03 /[facility] LAB HEMETOLOGY METHOD 10/30/2024 9:43 AM EST [facility] Blood Venous blood specimen / Unknown Venipuncture / Unknown 10/30/2024 6:01 AM EST 10/30/2024 9:03 AM EST Radha Gonzales MD LAB BLOOD ORDERABLES Final Res ult Performing Organization Address [facility]/ZIP Co de Phone Number [facility] [address] [place] [address], [place] [phone] * Culture blood (10/30/2024 6:01 AM EST) Culture, Blood No growth at 5 days 11/04/2024 11:01 AM [facility] Blood Venous blood specimen / Unknown Venipuncture / Unknown 10/30/2024 6:01 AM EST 10/30/2024 9:03 AM EST Radha Gonzales MD LAB MICROBIOLOGY - GENERAL ORD ERABLES Final Result [facility] [address] [place] [address], [place] [phone] * (ABNORMAL) Basic metabolic panel (10/30/2024 6:01 AM EST) Sodium 137 133 - 145 mmol/L LAB CHEMISTRY METHOD 10/30/2024 10:04 AM EST [facility] Potassium 3.7 3.5 - 5.5 mmol/L LAB CHEMISTRY METHOD 10/30/2024 10:04 AM [facility] Chloride 101 96 - 110 mmol/L LAB CHEMISTRY METHOD 10/30/2024 10:04 AM [facility] CO2 29 21 - 32 mmol/L LAB CHEMISTRY METHOD 10/30/2024 10:04 AM [facility] Anion Gap 7 3 - 11 LAB CHEMISTRY METHOD 10/30/2024 10:04 AM [facility] Glucose 81 70 - 100 mg/dL LAB CHEMISTRY METHOD 10/30/2024 10:04 AM [facility] BUN 85(H) 5 - 25 mg/dL LAB CHEMISTRY METHOD 10/30/2024 10:04 AM [facility] Creatinine 1.70(H) 0.70 - 1.30 mg/dL LAB CHEMISTRY METHOD 10/30/2024 10:04 AM [facility] eGFR 42(L) >=60 mL/min/1. 73m2 LAB CHEMISTRY METHOD 10/30/2024 10:04 AM [facility] Comment:Calculation based on the??Chronic Kidney Disease Epidemiology Collaboration (CKD-EPI) equation refit??without adjustment for race. BUN/Creatinine Ratio 50.0 LAB CHEMISTRY METHOD 10/30/2024 10:04 AM [facility] Calcium 8.6 8.5 - 10.5 mg/dL LAB CHEMISTRY METHOD 10/30/2024 10:04 AM [facility] Blood Venous blood specimen / Unknown Venipuncture / Unknown 10/30/2024 6:01 AM EST 10/30/2024 9:03 AM EST us Radha Gonzales MD LAB BLOOD ORDERABLES Final Res ult [facility] [address] [place] [address], documented in this encounter Visit Diagnoses Diagnosis Encounter for other general examination documented in this encounter Care Teams Senior Windows Systems Administrator Relationship Specialty Start Date End Date Brennan Tyson MD [address] [facility] [phone] PCP - General Internal Medicine 09/25/12 documented as of this encounter
--- OUTSIDE RECORDS SUMMARY | 2024-12-21 18:25 | XMS_ITS | Encounter Summary ---
Author Organization [facility] Address [address] [place] [address] Care Team Providers Care Case Filler Name Role Phone Brennan Tyson MD Primary Care Provider Unavailabl e Orquidea See MD Unavailable Courtney Delong PA-C Unavailable Unavailab Vero Bueno MD Unavailable [phone] Encounter Details Date Type Department Care Team Description 11/04/2022 SCAN Medical Records [address] [place] [id number] Abstract, Provider Social History Tobacco Use Types [...] Date/Time Associated Diagnosis Comments OUTSIDE LAB Routine 11/04/2022 documented in this encounter Results * OUTSIDE LAB (11/04/2022) Provider Abstract LAB documented in this encounter Visit Diagnoses Not on filedocumented in this encounter Care Teams Case Filler Relationship Specialty Start Date End Date Brennan Tyson MD PCP - General Internal Medicine 12/18/17 Orquidea See MD Specialist Cardiology 08/07/21 Courtney Delong PA-C Cardiology 08/07/21 06/23/24 Vero Masters MD [address] [place] [address] Specialist Cardiology 11/19/22 documented as of this encounter
--- OUTSIDE RECORDS SUMMARY | 2024-12-21 18:25 | XMS_ITS | Encounter Summary ---
Author Organization [facility] Address [address] [place] [address] Care Team Providers Care Hand Welt Butter Name Role Phone Brennan Tyson MD Primary Care Provider Unavailabl e Orquidea See MD Unavailable Courtney Delong PA-C Unavailable Unavailab Vero Masters MD Unavailable [phone] Encounter Details Date Type Department Care Team Description 04/11/2023 Wound Care Rn Report Medical Records [address] [place] [id number] Brennan Tyson MD Social History Tobacco Use Types Packs/Day [...] on filedocumented in this encounter Care Teams Hand Welt Butter Relationship Specialty Start Date End Date Brennan Tyson MD PCP - General Internal Medicine 12/18/17 Orquidea See MD Specialist Cardiology 08/07/21 Courtney Delong PA-C Cardiology 08/07/21 06/23/24 Vero Masters MD [address] [place], [place] [phone] Specialist Cardiology 11/19/22 documented as of this encounter
--- OUTSIDE RECORDS SUMMARY | 2024-12-21 18:25 | XMS_ITS | Encounter Summary ---
Author Organization [facility] Address [address] [place] [address] Care Team Providers Care Breakfast Hostess Name Role Phone Brennan Tyson MD Primary Care Provider [phone] Reason for Visit * Reason Onset Date Comments Fitting for DME 12/15/2024 [facility] Encounter Details Date Type Department Care Team (Late st Contact Info) Description 12/15/2024 Telephone [facility] Pulmonary [address] [place] [phone] Darrian Vallecillo MA Fitting for DME ([facility]) Social History Tobacco Use Types Packs/Day Years [...] Progress Notes * Darrian Vallecillo MA - 12/15/2024 11:10 AM EST [facility] fax[email or web address]. documented in this encounter Plan of Treatment Upcoming Encounters Date Type Department Care Team (Late st Contact Info) Description 12/30/2024 1:00 PM EDT Office Visit Pulmonolgy - [place] 175 [facility] [address] [place] [phone] Eren Restrepo MD 175 [facility] [address] [place] [address] documented as of this encounter Visit Diagnoses Not on filedocumented in this encounter Care Teams Breakfast Hostess Relationship Specialty Start Date End Date Brennan Tyson MD [address] [place] [address] PCP - General Internal Medicine 09/25/12 documented as of this encounter
--- OUTSIDE RECORDS SUMMARY | 2024-12-21 18:25 | XMS_ITS | Clinical Summary ---
Author Organization [address] [place] [address] [place] [phone] Phone Care Team Providers Care Supervisor Propellant Charge Loading Name Role Phone Brennan Tyson MD Primary Care Provider [phone] Allergies Active Allergy Reactions Criticality Noted Date Comments Labetalol 01/18/2022 Other 12/26/2022 HORSE SERUM PROTEINS AB.[id number] Tetanus Toxoid 01/18/2022 Medications allopurinoL 200 mg tablet Take by mouth daily. Active atorvastatin (LIPITOR) 40 mg tablet Take 1 Tablet by mouth daily. Active bumetanide (BUMEX) 1 mg tablet Take 3 Tablets by mouth daily. Active carvediloL (COREG) 25 mg tablet Take 25 mg by mouth 2 times daily (with meals). Active cetirizine (ZyrTEC) 10 mg tablet Take 1 Tablet by mouth as needed. Active fenofibrate (LOFIBRA) 160 mg tablet Take 0.5 Tablets by mouth daily. Active fluticasone propionate (FLONASE) 50 mcg/actuation nasal spray 2 Sprays by Nasal route daily for 30 days. 2 Active melatonin 3 mg tablet Take 3 Tablets by mouth every evening. Active metOLazone (ZAROXOLYN) 5 mg tablet Take 1 Tablet by mouth twice a week. ,friday Active minoxidiL (LONITEN) 2.5 mg tablet Take 1 Tablet by mouth daily. 2 Active montelukast (SINGULAIR) 10 mg tablet TAKE 1 TABLET BY MOUTH EVERYDAY AT BEDTIME 4 Active nitroglycerin (NITROSTAT) 0.[address] 1 tab under tongue every 5 minutes x 3 doses for chest pain. If no relief, call 911 2 Active omeprazole (PriLOSEC) [address] capsule Take 1 Capsule by mouth 2 Times Daily. Active miscellaneous medical supply misc OXYGEN HISTORICAL (HISTORICAL OXYGEN) : Inhale 2 L into the lungs at bedtime. Active potassium chloride (Pokonza) 10 mEq packet Take by mouth at bedtime. Active rOPINIRole (REQUIP) 1 mg tablet Take 2 mg by mouth at bedtime. Active sertraline (ZOLOFT) 100 mg tablet Take 1 Tablet by mouth daily. Active tamsulosin (FLOMAX) 0.4 mg 24 hr capsule Take 0.4 mg by mouth daily. Take 30 mins after same meal every day. Active umeclidinium (Incruse Ellipta) 62.5 mcg/actuation inhalation INHALE 1 PUFF INTO THE LUNGS DAILY 2 Active albuterol HFA (PROAIR HFA ; PROVENTIL HFA ; VENTOLIN HFA) 90 mcg/actuation inhalerIndicatio ns:Chronic obstructive pulmonary disease, unspecified (CMS/HCC) INHALE 2 PUFFS INTO THE LUNGS 4 TIMES DAILY NEEDED FOR WHEEZING OR SHORTNESS OF BREATH. 8.5 each 6 4 Active Active Problems Problem Noted Date Diagnosed Date CVA (cerebral vascular accident) 05/27/2023 Aortic insufficiency 12/26/2022 Diastolic dysfunction 12/26/2022 Overview (08/06/2024): Last Assessment & Plan: Be on quite high dose of diuretics, managed by renal team. Atypical angina 11/15/2022 Dilated aortic root 11/15/2022 Dyspnea 11/15/2022 HLD (hyperlipidemia) 11/15/2022 Atrial fibrillation 05/17/2021 Overview (08/06/2024): Last Assessment & Plan: Has been chronic. Status post Watchman and anticoagulation has been permanently off. Heart rate is controlled on current regimen. CAD (coronary artery disease) 05/17/2021 Overview (08/06/2024): Last Assessment & Plan: No angina symptoms. Will continue current regimen. Will repeat lipid profile. Congestive heart failure (CHF) 05/17/2021 Overview (08/06/2024): Last Assessment & Plan: Stable volume status. Continue current regimen. Will repeat echocardiogram. Chronic obstructive pulmonary disease, unspecifi ed 07/16/2017 Obstructive sleep apnea syndrome 07/16/2017 Overview (08/06/2024): 11/2021 Home Sleep Study did not reveal sleep apnea or nocturnal hypoxia. Asthma 12/06/2016 Arthritis 11/12/2016 Diabetes mellitus type 2, uncomplicated 11/12/19 17 Hypertension 11/12/2016 Overview (08/06/2024): Last Assessment & Plan: Well-controlled. Seasonal allergic rhinitis 11/12/2016 Encounters Date Type Department Care Team Description 12/15/2024 Telephone [facility] Pulmonary [address] [place] [phone] Darrian Vallecillo MA Fitting for DME ([facility] pharmacy) 10/31/2024 Lab Requisition [facility] Lab [address] [place] [phone] Radha Gonzales MD Encounter for other general examination 10/30/2024 Lab Requisition [facility] [address] [place] [address] Radha Gonzales MD Encounter for other general examination 10/30/2024 Lab Requisition [facility] [address] [place] [address] Radha Gonzales MD Encounter for other general examination 10/28/2024 Lab Requisition [facility] [address] [place] [address] Radha Gonzales MD Encounter for other general examination 10/26/2024 Lab Requisition [facility] [address] [place] [address] Radha Gonzales MD Encounter for other general examination 10/25/2024 Lab Requisition [facility] Lab [address] [place] [address] Radha Gonzales MD Encounter for other general examination 10/25/2024 Telephone Pulmonolgy - [place] [address] [facility] [address] [place] [address] Eren Restrepo MD CONFIRM O2 10/23/2024 Lab Requisition [facility] - [facility] Lab [address] [place] [address] Radha Gonzales MD Encounter for other general examination from Last 3 Months Immunizations Name Administration Dates Next Due Influenza trivalent, 0.5mL (Fluad) 65yo and olde r 06/27/2020 Moderna SARS-CoV-2 COVID-19, mRNA, LNP-S, preservative free 12/09/2020,11/17/2020 Zoster recombinant (Shingrix) 19yo and older ,10/03/2020 Surgical History Surgery Date Site/Laterality Comments OTHER SURGICAL HISTORY PROCEDURE: ---- OTHER ----; COMMENT: sleeve gastrectomy ANGIOPLASTY PROCEDURE: HISTORICAL ANGIOPLASTY; COMMENT: Coronary ADENOIDECTOMY PROCEDURE: HISTORICAL ADENOIDECTOMY OTHER SURGICAL HISTORY PROCEDURE: HISTORY OTHER; COMMENT: Laparoscopy, longitudinal gastrectomy TONSILLECTOMY PROCEDURE: HISTORICAL TONSILLECTOMY OTHER SURGICAL HISTORY PROCEDURE: LAPAROSCOPY; ADRENALECTOMY Medical History Medical History Date Comments Diabetes mellitus type 2, uncomplicated ([facility]) 11/12/2016 DX:Diabetes mellitus type 2, uncomplicated (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) History of renal calculi 11/12/2016 DX:Hist ory of renal calculi Hypertension 11/12/2016 DX:Hypertension Obstructive sleep apnea syndrome 07/16/2017 DX:Obstructive sleep apnea syndrome Seasonal allergic rhinitis 11/12/2016 DX:Se asonal allergic rhinitis Major depression in partial remission ([facility]) DX:Major depression in parti al remission (HCC) Anemia DX:Anemia Anticoagulated DX:Anticoagulate d Perinephric hematoma DX:Perineph dee hematoma Renal hematoma DX:Renal hematom a Retroperitoneal abscess (CMS/HCC) DX:Retroperitoneal abscess (HCC) Anxiety DX:Anxiety CVA (cerebral vascular accid ent) (CMS/HCC) DX:CVA (cerebral vascular ac cident) (HCC) Esophageal reflux DX:Esophageal reflux History of COPD DX:History of [place] PD Nephrolithiasis DX:Nephrolithias is Class 2 obesity DX:Class 2 obesi ty Type 2 diabetes mellitus wit h renal manifestations (CMS/HCC) DX:Type 2 diabetes mellitus with renal manifestations (HCC) Chronic kidney disease, stag e 3a (CMS/HCC) 12/26/2022 DX:Chronic kidney disease, s tage 3a (HCC) COPD without exacerbation (CMS/HCC) DX:COPD without exacerbation (HCC) Family History Medical History Relation Name Comments Leukemia Father Asthma Mother Relation Name Status Comments Father Mother Social History Tobacco Use Types Packs/Day Years [...] on file Sexual Orientation Not on file Obstetrics History Last Filed Vital Signs Vital Sign Reading Time Taken Comments Blood Pressure 124/76 03/22/2024 3:19 PM EDT Pulse 76 03/22/2024 3:19 PM EDT Temperature - - Respiratory Rate - - Oxygen Saturation - - Inhaled Oxygen Concentration - - Weight 73.5 kg (162 lb) 03/22/2024 3:19 PM EDT Height 167.6 cm (5' 6 ) 03/22/2024 3:19 PM EDT Body Mass Index 26.15 03/22/2024 3:19 PM EDT Plan of Treatment Upcoming Encounters Date Type Department Care Team (Late st Contact Info) Description 12/30/2024 1:00 PM EDT Office Visit Pulmonolgy - [place] [address] [facility] [address] [place] [phone] Eren Restrepo MD [address] [facility] [address] [place] [address] Health Maintenance Due Date Last Done Comments Diabetes: Annual Foot Exam 1961 Diabetes: Annual Retina Eye Exam 1960 Abdominal Aortic Aneurysm (AAA) Screen 09/28/2022 Cholesterol Screening (Lipid Panel) 09/28/2022 Colorectal Cancer Screening: Colonoscopy 09/28/2022 Depression Screening 09/28/2022 Falls Risk Assessment 09/28/2022 Hepatitis C Screening 09/28/2022 Social Influencers of Health Screening 09/28/2022 Diabetes: Annual Urine Albumin-Creatinine Ratio (uACR) 10/04/2022 Diabetes: Blood Sugar Control Test (HGBA1C) 10/04/2022 Medicare Annual Wellness Visit 04/01/2023 04/01/2022 DTaP,Tdap,and Td Vaccines (2 - Td or Tdap) 10/20/2023 10/20/2013 Diabetes: Annual GFR (Glomerular Filtration Rate) 10/30/2025 10/30/2024, 10/28/2024, 10/26/2024, Additional history exists Hypertension/CHF/CAD Annual BMP Blood Test 10/30/2025 10/30/2024, 10/28/2024, 10/26/2024, Additional history exists Pneumococcal Vaccine: 50+ Years Completed 08/12/2018, 05/07/2016, 07/22/2011 Zoster Vaccines Completed 01/03/2021, 09/19, 07/27/2015 RSV Immunization Patients 60+ Years Old Completed 05/18/2024 COVID-19 Vaccine Completed 06/17/2024, 09/2022, 06/21/2021, Additional history exists Influenza Vaccine Completed 06/17/2024, , 08/12/2022, Additional history exists HIB Vaccines Aged Out No longer eligi ble based on patient's age to complete this topic HPV Vaccines Aged Out No longer eligi ble based on patient's age to complete this topic Hepatitis A Vaccines Aged Out No long er eligible based on patient's age to complete this topic Hepatitis B Vaccines Aged Out No long er eligible based on patient's age to complete this topic IPV Vaccines Aged Out No longer eligi ble based on patient's age to complete this topic MMR Vaccines Aged Out No longer eligi ble based on patient's age to complete this topic Meningococcal ACWY Vaccine Aged Out N o longer eligible based on patient's age to complete this topic Meningococcal B Vacine Aged Out No lo nger eligible based on patient's age to complete this topic RSV Immunization Patients Under 20 months Aged Out No longer eligible based on patient's age to complete this topic Varicella Vaccines Aged Out No longer eligible based on patient's age to complete this topic Procedures Procedure Name Priority Date/Time Associated Diagnosis Comments URINALYSIS WITH REFLEX MICROSCOPIC AND CULTURE Routine 10/30/2024 9:49 PM EST Encounter for other general examination FUENTES URINE CULTURE TUBE Routine 10/30/2024 9:49 PM EST Encounter for other general examination URINALYSIS WITH REFLEX MICROSCOPIC AND CULTURE Routine 10/30/2024 9:49 PM EST Encounter for other general examination CULTURE URINE Routine 10/30/2024 9:49 PM EST Encounter for other general examination CULTURE BLOOD Routine 10/30/2024 6:07 AM EST Encounter for other general examination CBC WITH AUTO DIFFERENTIAL Routine 10/30/2024 6:01 AM EST Encounter for other general examination CBC AND DIFFERENTIAL Routine 10/30/2024 6:01 AM EST Encounter for other general examination BASIC METABOLIC PANEL Routine 10/30/2024 6:01 AM EST Encounter for other general examination CULTURE BLOOD Routine 10/30/2024 6:01 AM EST Encounter for other general examination CBC WITH AUTO DIFFERENTIAL Routine 10/28/2024 2:39 PM EST Encounter for other general examination CBC AND DIFFERENTIAL Routine 10/28/2024 2:39 PM EST Encounter for other general examination BASIC METABOLIC PANEL Routine 10/28/2024 2:39 PM EST Encounter for other general examination CBC WITH AUTO DIFFERENTIAL Routine 10/26/2024 6:57 AM EST Encounter for other general examination CBC AND DIFFERENTIAL Routine 10/26/2024 6:57 AM EST Encounter for other general examination BASIC METABOLIC PANEL Routine 10/26/2024 6:57 AM EST Encounter for other general examination MANUAL DIFFERENTIAL - SYSMEX WAM Routine 10/25/2024 6:59 AM EST Encounter for other general examination CBC WITH AUTO DIFFERENTIAL Routine 10/25/2024 6:59 AM EST Encounter for other general examination CBC AND DIFFERENTIAL Routine 10/25/2024 6:59 AM EST Encounter for other general examination BASIC METABOLIC PANEL Routine 10/25/2024 6:59 AM EST Encounter for other general examination CBC WITH AUTO DIFFERENTIAL Routine 10/23/2024 8:00 AM EST Encounter for other general examination MAGNESIUM Routine 10/23/2024 8:00 AM EST Encounter for other general examination CBC AND DIFFERENTIAL Routine 10/23/2024 8:00 AM EST Encounter for other general examination COMPREHENSIVE METABOLIC PANEL Routine 10/23/2024 8:00 AM EST Encounter for other general examination from Last 3 Months Results * (ABNORMAL) Urinalysis with reflex microscopic and culture (10/30/2024 9:49 PM EST) Specific [place] Urine 1.016 1.003 - 1.030 LAB URINALYSIS - AUTOMATED METHOD 10/31/2024 9:50 AM EST [facility] pH, Urine 5.5 5.0 - 8.0 pH LAB URINALYSIS - AUTOMATED METHOD 10/31/2024 9:50 AM EST [facility] Leukocytes, Urine Trace(A) Negative LAB URINALYSIS - AUTOMATED METHOD 10/31/2024 9:50 AM [facility] Nitrite, Urine Negative Negative LAB URINALYSIS - AUTOMATED METHOD 10/31/2024 9:50 AM [facility] Protein, Urine Trace <=Trace mg/dL LAB URINALYSIS - AUTOMATED METHOD 10/31/2024 9:50 AM [facility] Glucose, Urine Negative Negative mg/dL LAB URINALYSIS - AUTOMATED METHOD 10/31/2024 9:50 AM [facility] Ketones, Urine Negative Negative mg/dL LAB URINALYSIS - AUTOMATED METHOD 10/31/2024 9:50 AM [facility] Urobilinogen , Urine 0.2 0.2 - 1.0 mg/dL LAB URINALYSIS - AUTOMATED METHOD 10/31/2024 9:50 AM [facility] Bilirubin, Urine Negative Negative LAB URINALYSIS - AUTOMATED METHOD 10/31/2024 9:50 AM [facility] Blood, Urine Negative Negative LAB URINALYSIS - AUTOMATED METHOD 10/31/2024 9:50 AM [facility] RBC, Urine 2 0 - 4 /HPF LAB URINALYSIS - AUTOMATED METHOD 10/31/2024 9:50 AM [facility] WBC, Urine 6.4(H) 0 - 4 /HPF LAB URINALYSIS - AUTOMATED METHOD 10/31/2024 9:50 AM [facility] Squamous Epithelial, Urine 21 0 - 60 /LPF LAB URINALYSIS - AUTOMATED METHOD 10/31/2024 9:50 AM [facility] Crystals, Urine Light Calcium Oxalate crystals. /LPF LAB URINALYSIS - AUTOMATED METHOD 10/31/2024 9:50 AM [facility] Bacteria, Urine Negative Negative /HPF LAB URINALYSIS - AUTOMATED METHOD 10/31/2024 9:50 AM [facility] Hyaline Casts, Urine 4.2(H) 0 - 3 /LPF LAB URINALYSIS - AUTOMATED METHOD 10/31/2024 9:50 AM EST [facility] Urine Urine specimen obtained by clean catch procedure / Unknown 10/30/2024 9:49 PM EST 10/31/2024 8:36 AM EST Radha Gonzales MD LAB URINE ORDERABLES Final Res ult Performing Organization Address [facility]/ZIP Co de Phone Number [facility] [address] [place] [address], [place] [phone] * Fuentes urine culture tube (10/30/2024 9:49 PM EST) Extra Tube Hold for add-ons. 10/31/2024 10:01 AM EST [facility] Comment:Auto resulted. Urine Urine specimen obtained by clean catch procedure / Unknown 10/30/2024 9:49 PM EST 10/31/2024 8:36 AM EST us Radha Gonzales MD LAB URINE ORDERABLES Final Res ult Performing Organization Address [facility] Co de Phone Number [facility] [address] [place] [address], [place] [phone] * Culture urine (10/30/2024 9:49 PM EST) Culture, Urine 10,000-49,000 CFU/mL Mixed urogenital roman, no uropathogens present. Suggest repeat specimen if clinically indicated. 11/01/2024 11:21 AM EST [facility] Urine Urine specimen obtained by clean catch procedure / Unknown 10/30/2024 9:49 PM EST 10/31/2024 9:50 AM EST Radha Gonzales MD LAB MICROBIOLOGY - GENERAL ORD ERABLES Final Result Performing Organization Address City/[facility]/ZIP Co de Phone Number [facility] [address] [place] [address], [place] [phone] * Culture blood (10/30/2024 6:07 AM EST) Only the most recent of2 resultswithin the time period is included. [facility] Culture, Blood No growth at 5 days 11/04/2024 11:01 AM [facility] Blood Venous blood specimen / Unknown Venipuncture / Unknown 10/30/2024 6:07 AM EST 10/30/2024 9:05 AM EST Radha Gonzalse MD LAB MICROBIOLOGY - GENERAL ORD ERABLES Final Result [facility] [address] [place] [address], [place] [phone] * (ABNORMAL) CBC auto differential (10/30/2024 6:01 AM EST) Only the most recent of5 resultswithin the time period is included. [facility] WBC 22.5(H) 4.8 - 10.8 K/mcL LAB HEMETOLOGY METHOD 10/30/2024 9:43 AM [facility] RBC 4.00(L) 4.50 - 5.50 M/mcL LAB HEMETOLOGY METHOD 10/30/2024 9:43 AM [facility] Hemoglobin 10.3(L) 13.5 - 17.5 g/dL LAB HEMETOLOGY METHOD 10/30/2024 9:43 AM [facility] Hematocrit 35.0(L) 42.0 - 54.0 % LAB HEMETOLOGY METHOD 10/30/2024 9:43 AM [facility] MCV 86.6 79.0 - 98.0 FL LAB HEMETOLOGY METHOD 10/30/2024 9:43 AM [facility] MCH 25.5(L) 27.0 - 32.0 pcg LAB HEMETOLOGY METHOD 10/30/2024 9:43 AM [facility] MCHC 29.4(L) 32.0 - 37.0 g/dL LAB HEMETOLOGY METHOD 10/30/2024 9:43 AM [facility] RDW 18.9(H) 11.0 - 15.0 % LAB HEMETOLOGY METHOD 10/30/2024 9:43 AM [facility] Platelets 477(H) 130 - 400 K/mcL LAB HEMETOLOGY METHOD 10/30/2024 9:43 AM [facility] MPV 11.8(H) 7.0 - 11.0 FL LAB HEMETOLOGY METHOD 10/30/2024 9:43 AM [facility] NRBC 0.1 <1.0 % LAB HEMETOLOGY METHOD 10/30/2024 9:43 AM [facility] NRBC Absolute 0.02 <0.10 K/mcL LAB HEMETOLOGY METHOD 10/30/2024 9:43 AM [facility] Neutrophils Relative 86.9 % LAB HEMETOLOGY METHOD 10/30/2024 9:43 AM [facility] Lymphocytes Relative 4.5 % LAB HEMETOLOGY METHOD 10/30/2024 9:43 AM [facility] Monocytes Relative 2.4 % LAB HEMETOLOGY METHOD 10/30/2024 9:43 AM [facility] Eosinophils Relative 2.2 % LAB HEMETOLOGY METHOD 10/30/2024 9:43 AM [facility] Basophils Relative 0.6 % LAB HEMETOLOGY METHOD 10/30/2024 9:43 AM [facility] Immature Granulocytes Relative 3.4 % LAB HEMETOLOGY METHOD 10/30/2024 9:43 AM [facility] Neutrophils Absolute 19.51(H) 1.50 - 7.00 K/mcL LAB HEMETOLOGY METHOD 10/30/2024 9:43 AM EST [facility] Lymphocytes Absolute 1.02 1.00 - 5.00 K/mcL LAB HEMETOLOGY METHOD 10/30/2024 9:43 AM EST [facility] Monocytes Absolute 0.54 0.20 - 1.00 K/mcL LAB HEMETOLOGY METHOD 10/30/2024 9:43 AM EST [facility] Eosinophils Absolute 0.50 0.00 - 0.50 K/[facility] LAB HEMETOLOGY METHOD 10/30/2024 9:43 AM EST [facility] Basophils Absolute 0.13 0.00 - 0.20 K/[facility] LAB HEMETOLOGY METHOD 10/30/2024 9:43 AM [facility] Immature Granulocytes Absolute 0.76(H) 0.00 - 0.03 K/mcL LAB HEMETOLOGY METHOD 10/30/2024 9:43 AM [facility] Blood Venous blood specimen / Unknown Venipuncture / Unknown 10/30/2024 6:01 AM EST 10/30/2024 9:03 AM EST us Radha Gonzales MD LAB BLOOD ORDERABLES Final Res ult [facility] [address] [place] [address], * (ABNORMAL) Basic metabolic panel (10/30/2024 6:01 AM EST) Only the most recent of4 resultswithin the time period is included. Sodium 137 133 - 145 mmol/L LAB CHEMISTRY METHOD 10/30/2024 10:04 AM [facility] Potassium 3.7 3.5 - 5.5 mmol/L LAB CHEMISTRY METHOD 10/30/2024 10:04 AM [facility] Chloride 101 96 - 110 mmol/L LAB CHEMISTRY METHOD 10/30/2024 10:04 AM [facility] CO2 29 21 - 32 mmol/L LAB CHEMISTRY METHOD 10/30/2024 10:04 AM [facility] Anion Gap 7 3 - 11 LAB CHEMISTRY METHOD 10/30/2024 10:04 AM [facility] Glucose 81 70 - 100 mg/dL LAB CHEMISTRY METHOD 10/30/2024 10:04 AM [facility] BUN 85(H) 5 - 25 mg/dL LAB CHEMISTRY METHOD 10/30/2024 10:04 AM [facility] Creatinine 1.70(H) 0.70 - 1.30 mg/dL LAB CHEMISTRY METHOD 10/30/2024 10:04 AM [facility] eGFR 42(L) >=60 mL/min/1. 73m2 LAB CHEMISTRY METHOD 10/30/2024 10:04 AM [facility] Comment:Calculation based on the??Chronic Kidney Disease Epidemiology Collaboration (CKD-EPI) equation refit??without adjustment for race. BUN/Creatinine Ratio 50.0 LAB CHEMISTRY METHOD 10/30/2024 10:04 AM [facility] Calcium 8.6 8.5 - 10.5 mg/dL LAB CHEMISTRY METHOD 10/30/2024 10:04 AM [facility] Blood Venous blood specimen / Unknown Venipuncture / Unknown 10/30/2024 6:01 AM EST 10/30/2024 9:03 AM EST us Radha Gonzales MD LAB BLOOD ORDERABLES Final Res ult [facility] [address] [place] [address], * (ABNORMAL) Manual differential (10/25/2024 6:59 AM EST) Neutrophils % 93.0 % LAB HEMETOLOGY METHOD 10/25/2024 2:21 PM [facility] Bands % 1.0 % LAB HEMETOLOGY METHOD 10/25/2024 2:21 PM [facility] Lymphocytes % 4.0 % LAB HEMETOLOGY METHOD 10/25/2024 2:21 PM [facility] Monocytes % 2.0 % LAB HEMETOLOGY METHOD 10/25/2024 2:21 PM [facility] Eosinophils % 0.0 % LAB HEMETOLOGY METHOD 10/25/2024 2:21 PM [facility] Basophils % 0.0 % LAB HEMETOLOGY METHOD 10/25/2024 2:21 PM [facility] Myelocytes % 1.0(H) % LAB HEMETOLOGY METHOD 10/25/2024 2:21 PM [facility] Neutrophils Absolute Manual 21.20(H) 1.50 - 7.00 K/mcL LAB HEMETOLOGY METHOD 10/25/2024 2:21 PM [facility] Bands Absolute Manual 0.23(H) 0.00 - 0.00 K/mcL LAB HEMETOLOGY METHOD 10/25/2024 2:21 PM [facility] Lymphocytes Absolute 0.91(L) 1.00 - 5.00 K/mcL LAB HEMETOLOGY METHOD 10/25/2024 2:21 PM [facility] Monocytes Absolute Manual 0.46 0.20 - 1.00 K/mcL LAB HEMETOLOGY METHOD 10/25/2024 2:21 PM [facility] Eosinophils Absolute Manual 0.00 0.00 - 0.50 K/mcL LAB HEMETOLOGY METHOD 10/25/2024 2:21 PM [facility] Basophils Absolute Manual 0.00 0.00 - 0.20 K/mcL LAB HEMETOLOGY METHOD 10/25/2024 2:21 PM [facility] Myelocytes Absolute Manual 0.23(H) 0.00 - 0.00 K/mcL LAB HEMETOLOGY METHOD 10/25/2024 2:21 PM EST [facility] Rbc Morphology Present( A) Consistent with indices, Normal for [place] LAB HEMETOLOGY METHOD 10/25/2024 2:21 PM [facility] Platelet Morphology - WAM See Note(A) Normal LAB HEMETOLOGY METHOD 10/25/2024 2:21 PM EST [facility] Comment:PLT: Normal Schistocytes Present < 5%(A) (none) LAB HEMETOLOGY METHOD 10/25/2024 2:21 PM [facility] Blood Venous blood specimen / Unknown Venipuncture / Unknown 10/25/2024 6:59 AM EST 10/25/2024 12:46 PM EST us Radha Gonzales MD LAB BLOOD ORDERABLES Final Res ult Performing Organization Address City/[facility]/ZIP Co de Phone Number [facility] [address] [place] [address], [place] [phone] * (ABNORMAL) Magnesium (10/23/2024 8:00 AM EST) Pathologist [facility] Magnesium 1.8(L) 1.9 - 2.6 mg/dL LAB CHEMISTRY METHOD 10/23/2024 12:53 PM EST [facility] Blood Venous blood specimen / Unknown Venipuncture / Unknown 10/23/2024 8:00 AM EST 10/23/2024 11:33 AM EST us Radha Gonzales MD LAB BLOOD ORDERABLES Final Res ult [facility] [address] [place] [address], [place] [phone] * (ABNORMAL) Comprehensive metabolic panel (10/23/2024 8:00 AM EST) Sodium 140 133 - 145 mmol/L LAB CHEMISTRY METHOD 10/23/2024 1:01 PM [facility] Potassium 3.4(L) 3.5 - 5.5 mmol/L LAB CHEMISTRY METHOD 10/23/2024 1:01 PM [facility] Chloride 101 96 - 110 mmol/L LAB CHEMISTRY METHOD 10/23/2024 1:01 PM [facility] CO2 34(H) 21 - 32 mmol/L LAB CHEMISTRY METHOD 10/23/2024 1:01 PM [facility] Anion Gap 5 3 - 11 LAB CHEMISTRY METHOD 10/23/2024 1:01 PM [facility] Glucose 96 70 - 100 mg/dL LAB CHEMISTRY METHOD 10/23/2024 1:01 PM [facility] BUN 83(H) 5 - 25 mg/dL LAB CHEMISTRY METHOD 10/23/2024 1:01 PM [facility] Creatinine 1.70(H) 0.70 - 1.30 mg/dL LAB CHEMISTRY METHOD 10/23/2024 1:01 PM [facility] eGFR 42(L) >=60 mL/min/1. 73m2 LAB CHEMISTRY METHOD 10/23/2024 1:01 PM [facility] Comment:Calculation based on the??Chronic Kidney Disease Epidemiology Collaboration (CKD-EPI) equation refit??without adjustment for race. BUN/Creatinine Ratio 48.8 LAB CHEMISTRY METHOD 10/23/2024 1:01 PM [facility] Calcium 9.6 8.5 - 10.5 mg/dL LAB CHEMISTRY METHOD 10/23/2024 1:01 PM [facility] AST (SGOT) 19 10 - 42 unit/L LAB CHEMISTRY METHOD 10/23/2024 1:01 PM [facility] ALT (SGPT) 14 10 - 60 unit/L LAB CHEMISTRY METHOD 10/23/2024 1:01 PM [facility] Alkaline Phosphatase 95 42 - 121 unit/L LAB CHEMISTRY METHOD 10/23/2024 1:01 PM EST [facility] Total Protein 6.1 6.0 - 8.0 g/dL LAB CHEMISTRY METHOD 10/23/2024 1:01 PM EST [facility] Albumin 2.9(L) 3.2 - 5.0 g/dL LAB CHEMISTRY METHOD 10/23/2024 1:01 PM [facility] Total Bilirubin 0.8 0.0 - 1.4 mg/dL LAB CHEMISTRY METHOD 10/23/2024 1:01 PM EST [facility] Blood Venous blood specimen / Unknown Venipuncture / Unknown 10/23/2024 8:00 AM EST 10/23/2024 11:33 AM EST us Radha Gonzales MD LAB BLOOD ORDERABLES Final Res ult [facility] [address] [place] [address], [place] [phone] from Last 3 Months Insurance MEDICARE MEDICAID - [place] Care Teams Supervisor Propellant Charge Loading Relationship Specialty Start Date End Date Brennan Tyson MD [address] [place] [address] PCP - General Internal Medicine 09/25/12
--- OUTSIDE RECORDS SUMMARY | 2024-12-21 18:25 | XMS_ITS | Encounter Summary ---
Author Organization [facility] Address [address] [place] [address] Care Team Providers Care Upset Welding Machine Operator Name Role Phone Brenann Tyson MD Primary Care Provider Unavailabl e Orquidea See MD Unavailable Courtney DelongC Unavailable Unavailab Vero Bueno MD Unavailable [phone] Encounter Details Date Type Department Care Team Description 05/27/2024 Refill Pulmonology - [place] [address] [phone] Dayna Shanks MD [address] [phone] Social History Tobacco Use Types Packs/Day Years [...] on filedocumented in this encounter Care Teams Upset Welding Machine Operator Relationship Specialty Start Date End Date Brennan Tyson MD PCP - General Internal Medicine 12/18/17 Orquidea See MD Specialist Cardiology 08/07/21 Courtney Delong PA-C Cardiology 08/07/21 06/23/24 Vero Masters MD [address] [facility] [address] [place] [address] Specialist Cardiology 11/19/22 documented as of this encounter
--- OUTSIDE RECORDS SUMMARY | 2024-12-21 18:25 | XMS_ITS | Encounter Summary ---
Author Organization [facility] Address [address] [place] [address] Care Team Providers Care Bar Tacker Sewing Machine Name Role Phone Brennan yTson MD Primary Care Provider [phone] Encounter Details Date Type Department Care Team (Late Contact Info) Description 10/28/2024 Lab Requisition [facility] - Main Lab [address] [facility] [place] [address] Radha Gonzales MD [address] [place] [id number] Encounter for other general examination Social History [...] Description 12/30/2024 1:00 PM EDT [facility] [address] [phone] Eren Restrepo MD 175 [facility] [address] [place] [address] documented as of this encounter Procedures Procedure Name Priority Date/Time Associated Diagnosis Comments CBC WITH AUTO DIFFERENTIAL Routine 10/28/2024 2:39 PM EST Encounter for other general examination CBC AND DIFFERENTIAL Routine 10/28/2024 2:39 PM EST Encounter for other general examination BASIC METABOLIC PANEL Routine 10/28/2024 2:39 PM EST Encounter for other general examination documented in this encounter Results * (ABNORMAL) CBC auto differential (10/28/2024 2:39 PM EST) WBC 22.4(H) 4.8 - 10.8 K/mcL LAB HEMETOLOGY METHOD 10/28/2024 3:36 PM [facility] RBC 4.20(L) 4.50 - 5.50 M/mcL LAB HEMETOLOGY METHOD 10/28/2024 3:36 PM [facility] Hemoglobin 10.8(L) 13.5 - 17.5 g/dL LAB HEMETOLOGY METHOD 10/28/2024 3:36 PM [facility] Hematocrit 34.9(L) 42.0 - 54.0 % LAB HEMETOLOGY METHOD 10/28/2024 3:36 PM [facility] MCV 83.9 79.0 - 98.0 FL LAB HEMETOLOGY METHOD 10/28/2024 3:36 PM [facility] MCH 26.0(L) 27.0 - 32.0 pcg LAB HEMETOLOGY METHOD 10/28/2024 3:36 PM [facility] MCHC 30.9(L) 32.0 - 37.0 g/dL LAB HEMETOLOGY METHOD 10/28/2024 3:36 PM [facility] RDW 18.6(H) 11.0 - 15.0 % LAB HEMETOLOGY METHOD 10/28/2024 3:36 PM [facility] Platelets 488(H) 130 - 400 K/mcL LAB HEMETOLOGY METHOD 10/28/2024 3:36 PM [facility] MPV 12.1(H) 7.0 - 11.0 FL LAB HEMETOLOGY METHOD 10/28/2024 3:36 PM [facility] NRBC 0.0 <1.0 % LAB HEMETOLOGY METHOD 10/28/2024 3:36 PM [facility] NRBC Absolute 0.00 <0.10 K/mcL LAB HEMETOLOGY METHOD 10/28/2024 3:36 PM [facility] Neutrophils Relative 86.8 % LAB HEMETOLOGY METHOD 10/28/2024 3:36 PM [facility] Lymphocytes Relative 4.3 % LAB HEMETOLOGY METHOD 10/28/2024 3:36 PM [facility] Monocytes Relative 2.9 % LAB HEMETOLOGY METHOD 10/28/2024 3:36 PM [facility] Eosinophils Relative 2.3 % LAB HEMETOLOGY METHOD 10/28/2024 3:36 PM [facility] Basophils Relative 0.4 % LAB HEMETOLOGY METHOD 10/28/2024 3:36 PM [facility] Immature Granulocytes Relative 3.3 % LAB HEMETOLOGY METHOD 10/28/2024 3:36 PM [facility] Neutrophils Absolute 19.46(H) 1.50 - 7.00 K/mcL LAB HEMETOLOGY METHOD 10/28/2024 3:36 PM [facility] Lymphocytes Absolute 0.96(L) 1.00 - 5.00 K/mcL LAB HEMETOLOGY METHOD 10/28/2024 3:36 PM [facility] Monocytes Absolute 0.65 0.20 - 1.00 K/mcL LAB HEMETOLOGY METHOD 10/28/2024 3:36 PM [facility] Eosinophils Absolute 0.51(H) 0.00 - 0.50 K/mcL LAB HEMETOLOGY METHOD 10/28/2024 3:36 PM EST [facility] Basophils Absolute 0.10 0.00 - 0.20 K/mcL LAB HEMETOLOGY METHOD 10/28/2024 3:36 PM EST [facility] Immature Granulocytes Absolute 0.73(H) 0.00 - 0.03 K/mcL LAB HEMETOLOGY METHOD 10/28/2024 3:36 PM EST [facility] Blood Venous blood specimen / Unknown Venipuncture / Unknown 10/28/2024 2:39 PM EST 10/28/2024 3:23 PM EST us Radha Gonzales MD LAB BLOOD ORDERABLES Final Res ult [facility] [address] [place] [address], [place] [phone] * (ABNORMAL) Basic metabolic panel (10/28/2024 2:39 PM EST) Sodium 134 133 - 145 mmol/L LAB CHEMISTRY METHOD 10/28/2024 4:10 PM [facility] Potassium 3.9 3.5 - 5.5 mmol/L LAB CHEMISTRY METHOD 10/28/2024 4:10 PM [facility] Chloride 98 96 - 110 mmol/L LAB CHEMISTRY METHOD 10/28/2024 4:10 PM [facility] CO2 30 21 - 32 mmol/L LAB CHEMISTRY METHOD 10/28/2024 4:10 PM [facility] Anion Gap 6 3 - 11 LAB CHEMISTRY METHOD 10/28/2024 4:10 PM [facility] Glucose 131(H) 70 - 100 mg/dL LAB CHEMISTRY METHOD 10/28/2024 4:10 PM [facility] BUN 89(H) 5 - 25 mg/dL LAB CHEMISTRY METHOD 10/28/2024 4:10 PM [facility] Creatinine 2.25(H) 0.70 - 1.30 mg/dL LAB CHEMISTRY METHOD 10/28/2024 4:10 PM EST [facility] eGFR 30(L) >=60 mL/min/1. 73m2 LAB CHEMISTRY METHOD 10/28/2024 4:10 PM EST [facility] Comment:Calculation based on the??Chronic Kidney Disease Epidemiology Collaboration (CKD-EPI) equation refit??without adjustment for race. BUN/Creatinine Ratio 39.6 LAB CHEMISTRY METHOD 10/28/2024 4:10 PM EST [facility] Calcium 8.9 8.5 - 10.5 mg/dL LAB CHEMISTRY METHOD 10/28/2024 4:10 PM [facility] Blood Venous blood specimen / Unknown Venipuncture / Unknown 10/28/2024 2:39 PM EST 10/28/2024 3:23 PM EST us Radha Gonzales MD LAB BLOOD ORDERABLES Final Res ult [facility] [address] [place] [address], documented in this encounter Visit Diagnoses Diagnosis Encounter for other general examination documented in this encounter Care Teams Bar Tacker Sewing Machine Relationship Specialty Start Date End Date Brennan Tyson MD [address] [place] [address] PCP - General Internal Medicine 09/25/12 documented as of this encounter
--- OUTSIDE RECORDS SUMMARY | 2024-12-21 18:25 | XMS_ITS ---
Author Organization [facility] Address [address] [address] Care Team Providers Care Shell Fisherman Name Role Phone Brennan Tyson Primary Care Provider APRIL Steve Unavailable [phone] Allergies Allergen (clinical drug ingredient) Drug/Non Drug Allergy documented on EMR Reaction Allergy Type Onset Date Status Horse serum proteins AB. IGE.RAST CLASS (uncoded) Unknown Allergy Active labetalol Labetalol Unknown Drug Allergy Active Tetanus Toxoids Unknown Drug Allergy A ctive REASON FOR VISIT NEW PATIENT, Wheelchair bound, toenail pain Medications Medication SIG (Take, Route, Frequency, Duration) Notes Start Date End Date Status Ketotifen Fumarate 0.025% A ctive Fluticasone Propionate 50 MCG/ACT 1 spray in each nostril Nasally Twice a day Active Fenofibrate 160 MG 1 tablet Orally Once a day Active Ketoconazole 2 % 1 application Externally Once a day Active Incruse Ellipta 62.5 MCG/ACT 1 puff Inhalation Once a day Active Minoxidil 2.5 MG 1 tablet Orally Twic e a day Active metOLazone 5 MG 1 tablet Orally Two times a Week Active Omeprazole 40 MG 1 capsule 1/2 to 1 hour before morning meal Orally Once a day Active Melatonin 3 MG 1 tablet at bedtime as needed Orally Once a day Active LORazepam 0.5 MG 1 tablet at bedtime as needed Orally Once a day Active Potassium Chloride Sydnee ER 10 MEQ 1 tablet with food Orally Twice a day Active Advair Diskus 500-50 MCG/ACT 1 puff Inhalation Twice a day Active Sertraline HCl 100 MG 1 tablet Orally On ce a day Active rOPINIRole HCl 1 MG 1 tablet 1 to 3 hour s before bedtime Orally Once a day Active Tamsulosin HCl 0.4 MG 1 capsule Orally O nce a day Active Bumetanide 2 MG 1 tablet Orally Once a day Active Atorvastatin Calcium 40 MG 1 tablet Orally Once a day Active busPIRone HCl 5 MG 1 tablet Orally Twic e a day Active Aspirin 81 81 MG 1 tablet Orally Once a day Active Albuterol Sulfate 2 puffs three times a day Active Carvedilol 25 MG 1 tablet with food Orally Twice a day Active Encounters Encounter Location Date Provider Diagnosis [facility] [address] [phone] 10/27/2024 APRIL TORREZ Plan Of Treatment Next Appt Details Provider Name:APRIL TORREZ, 03/17/2025 10:30:00 AM, [address] [facility], [facility] [address], [place], [address], Progress Notes * Keo JACINTODOB:1950 (74 yo M)Acc No.[id number]:10/27/2024 Patient:?Keo JACINTO Provider:?April Díaz DPM :1950???Age:74 Y???Sex:Male Robert e:10/27/2024 Phone: Address:[address] [place] [phone] Pcp:Brennan Tyson Subjective: * Chief Complaints: * ???1. NEW PATIENT, Jered caballero bound, toenail pain. * Medical History:?Anxiety, Ao rtic insufficiency, Arteriosclerotic heart disease, Atrial fibrillation, Atypical angina, CAD S/P percutaneous coronary angioplasty, Chronic kidney disease, stage 3a, COPD without exacerbation, Cerebral vascular accident, Diastolic dysfunction, Dilated aortic root, Esophageal reflux, Essential hypertension, Hyperlipidemia, Major depression in partial remission, Nephrolithiasis, Obese class 1, Obesity, Obstructive sleep apnea, Type 2 diabetes mellitus with renal manifestations. * Surgical History:?adenoidect julio , laparoscopy, surgical, gastric restrictive procedure; longitudinal gastrectomy , tonsillectomy , adrenalectomy . * Family History:?Father: dece ased, chronic lymphocytic leukemia.?Mother: , CAD, Hypertension.?Siblings: Brother: HypertensionSister : () Hypertension.?1 brother(s) , 1 sister(s) . .? * Social History:?Tobacco: Quit in 2006 Alcohol: Never. * Medications:?Taking Tamsulos in HCl 0.4 MG Capsule 1 capsule Orally Once a day , Taking Sertraline HCl 100 MG Tablet 1 tablet Orally Once a day , Taking rOPINIRole HCl 1 MG Tablet 1 tablet 1 to 3 hours before bedtime Orally Once a day , Taking Potassium Chloride Sydnee ER 10 MEQ Tablet Extended Release 1 tablet with food Orally Twice a day , Taking Omeprazole 40 MG Capsule Delayed Release 1 capsule 1/2 to 1 hour before morning meal Orally Once a day , Taking Minoxidil 2.5 MG Tablet 1 tablet Orally Twice a day , Taking metOLazone 5 MG Tablet 1 tablet Orally Two times a Week , Taking Melatonin 3 MG Tablet 1 tablet at bedtime as needed Orally Once a day , Taking LORazepam 0.5 MG Tablet 1 tablet at bedtime as needed Orally Once a day , Taking Ketotifen Fumarate , Notes to Pharmacist: 0.025%, Taking Ketoconazole 2 % Cream 1 application Externally Once a day , Taking Incruse Ellipta 62.5 MCG/ACT Aerosol Powder Breath Activated 1 puff Inhalation Once a day , Taking Fluticasone Propionate 50 MCG/ACT Suspension 1 spray in each nostril Nasally Twice a day , Taking Fenofibrate 160 MG Tablet 1 tablet Orally Once a day , Taking Carvedilol 25 MG Tablet 1 tablet with food Orally Twice a day , Taking busPIRone HCl 5 MG Tablet 1 tablet Orally Twice a day , Taking Bumetanide 2 MG Tablet 1 tablet Orally Once a day , Taking Atorvastatin Calcium 40 MG Tablet 1 tablet Orally Once a day , Taking Aspirin 81 81 MG Tablet Delayed Release 1 tablet Orally Once a day , Taking Albuterol Sulfate , Notes to Pharmacist: 2 puffs three times a day, Taking Advair Diskus 500-50 MCG/ACT Aerosol Powder Breath Activated 1 puff Inhalation Twice a day * Allergies:?Horse serum prote ins AB. IGE.RAST CLASS: Allergy, Labetalol: Allergy, Tetanus Toxoids: Allergy. Objective: * Vitals:? Assessment: Plan: * Treatment: * Billing Information: * Visit Code:? * Procedure Codes:? * Electronic signature of TONEY TORREZ D.P.M. on 12/21/2024 at 06:25 PM EST Sign off status: Pending * Provider:?April KAUFMAN Date:?10/27 Generated for Chaz webster/Yuridia/Ayanna on:?12/21/2024 06:25 PM EST
--- OUTSIDE RECORDS SUMMARY | 2024-12-21 18:25 | XMS_ITS | Encounter Summary ---
Author Organization [facility] Address [address] [place] [address] Care Team Providers Care Wharf Tender Head Name Role Phone Brennan Tyson MD Primary Care Provider Unavailabl e Orquidea See MD Unavailable Courtney Delong PA-C Unavailable Unavailab Vero Bueno MD Unavailable [phone] Encounter Details Date Type Department Care Team Description 09/28/2022 Hospital Medical Records [address] [place] [id number] Abstract, Provider Social History Tobacco Use Types [...] on filedocumented in this encounter Care Teams Wharf Tender Head Relationship Specialty Start Date End Date Brennan Tyson MD PCP - General Internal Medicine 12/18/17 Orquidea See MD Specialist Cardiology 08/07/21 Courtney Delong PA-C Cardiology 08/07/21 06/23/24 Vero Masters MD [address] [facility] [address] [place] [address] Specialist Cardiology 11/19/22 documented as of this encounter
--- OUTSIDE RECORDS SUMMARY | 2024-12-21 18:25 | XMS_ITS | Encounter Summary ---
Author Organization [facility] Address [address] [place] [address] Care Team Providers Care Municipal Clerk Name Role Phone Brennan Tyson MD Primary Care Provider UnavailOrquidea Duran MD Unavailable Courtney Delong PA-C Unavailable Unavailab Vero Bueno MD Unavailable [phone] Reason for Visit * Reason Onset Date Comments Faxed Refill 01/13/2019 Encounter Details Date Type Department Care Team Description 01/13/2019 Refill Pulmonology - [place] [address] [facility] [address] [place] [phone] Eren Restrepo MD [address] [place] [phone] Faxed Refill Social History Tobacco Use Types Packs/Day Years [...] encounter Miscellaneous Notes * Telephone Encounter - Roseann Faith - 01/13/2019 9:38 AM EDT Patient would like script to be: E-PRESCRIBED/FAXED TO PHARMACY WHEN WAS THE PATIENT'S LAST APPOINTMENT WITH THE PRESCRIBING PROVIDER? 12/14/18 Does patient have an upcoming appointment? Yes 06/14/19 (THE MEDICATION REQUESTED IS ON THE MED LIST ABOVE) All of the medications requested were on the CURRENT MEDS list Did you check the Pharmacy information above?: YES Patient wants: 30 -day supply Is this a mail order prescription request ? NO Patients current insurance carrier is: Payor: MEDICARE-LMN-1 / Plan: MEDICARE-LMN-1 / Product Type: MEDICARE [id number] documented in this encounter Plan of Treatment Not on file documented as of this encounter Visit Diagnoses Not on filedocumented in this encounter Care Teams Municipal Clerk Relationship Specialty Start Date End Date Brennan Tyson MD PCP - General Internal Medicine 12/18/17 Orquidea See MD Specialist Cardiology 08/07/21 Courtney Delong PA-C Cardiology 08/07/21 06/23/24 Vero Masters MD [address] [place] [address] Specialist Cardiology 11/19/22 documented as of this encounter
--- OUTSIDE RECORDS SUMMARY | 2024-12-21 18:25 | XMS_ITS | Encounter Summary ---
Author Organization [facility] Address [address] [place] [address] Care Team Providers Care Regulator Tester Name Role Phone Brennan Tyson MD Primary Care Provider [phone] Encounter Details Date Type Department Care Team (Late Contact Info) Description 10/23/2024 Lab Requisition [facility] - Main Lab [address] [facility] [place] [address] Radha Gonzales MD [address] [place] [id number] Encounter for other general examination Social History [...] Description 12/30/2024 1:00 PM EDT [facility] [address] [address] Eren Restrepo MD 175 [facility] 200 [place] [address] documented as of this encounter Procedures Procedure Name Priority Date/Time Associated Diagnosis Comments CBC WITH AUTO DIFFERENTIAL Routine 10/23/2024 8:00 AM EST Encounter for other general examination CBC AND DIFFERENTIAL Routine 10/23/2024 8:00 AM EST Encounter for other general examination MAGNESIUM Routine 10/23/2024 8:00 AM EST Encounter for other general examination COMPREHENSIVE METABOLIC PANEL Routine 10/23/2024 8:00 AM EST Encounter for other general examination documented in this encounter Results * (ABNORMAL) CBC auto differential (10/23/2024 8:00 AM EST) [facility] WBC 15.9(H) 4.8 - 10.8 K/mcL LAB HEMETOLOGY METHOD 10/23/2024 12:29 PM [facility] LAB RBC 4.00(L) 4.50 - 5.50 M/mcL LAB HEMETOLOGY METHOD 10/23/2024 12:29 PM [facility] LAB Hemoglobin 10.3(L) 13.5 - 17.5 g/dL LAB HEMETOLOGY METHOD 10/23/2024 12:29 PM [facility] LAB Hematocrit 34.2(L) 42.0 - 54.0 % LAB HEMETOLOGY METHOD 10/23/2024 12:29 PM [facility] LAB MCV 85.3 79.0 - 98.0 FL LAB HEMETOLOGY METHOD 10/23/2024 12:29 PM [facility] LAB MCH 25.7(L) 27.0 - 32.0 pcg LAB HEMETOLOGY METHOD 10/23/2024 12:29 PM [facility] LAB MCHC 30.1(L) 32.0 - 37.0 g/dL LAB HEMETOLOGY METHOD 10/23/2024 12:29 PM [facility] LAB RDW 18.5(H) 11.0 - 15.0 % LAB HEMETOLOGY METHOD 10/23/2024 12:29 PM [facility] LAB Platelets 384 130 - 400 K/mcL LAB HEMETOLOGY METHOD 10/23/2024 12:29 PM [facility] LAB MPV 11.8(H) 7.0 - 11.0 FL LAB HEMETOLOGY METHOD 10/23/2024 12:29 PM [facility] LAB NRBC 0.0 <1.0 % LAB HEMETOLOGY METHOD 10/23/2024 12:29 PM [facility] LAB NRBC Absolute 0.00 <0.10 K/mcL LAB HEMETOLOGY METHOD 10/23/2024 12:29 PM [facility] LAB Neutrophils Relative 89.5 % LAB HEMETOLOGY METHOD 10/23/2024 12:29 PM [facility] LAB Lymphocytes Relative 4.2 % LAB HEMETOLOGY METHOD 10/23/2024 12:29 PM [facility] LAB Monocytes Relative 3.3 % LAB HEMETOLOGY METHOD 10/23/2024 12:29 PM [facility] LAB Eosinophils Relative 1.6 % LAB HEMETOLOGY METHOD 10/23/2024 12:29 PM [facility] LAB Basophils Relative 0.5 % LAB HEMETOLOGY METHOD 10/23/2024 12:29 PM [facility] LAB Immature Granulocytes Relative 0.9 % LAB HEMETOLOGY METHOD 10/23/2024 12:29 PM [facility] LAB Neutrophils Absolute 14.19(H) 1.50 - 7.00 K/mcL LAB HEMETOLOGY METHOD 10/23/2024 12:29 PM [facility] LAB Lymphocytes Absolute 0.66(L) 1.00 - 5.00 K/mcL LAB HEMETOLOGY METHOD 10/23/2024 12:29 PM [facility] LAB Monocytes Absolute 0.53 0.20 - 1.00 K/mcL LAB HEMETOLOGY METHOD 10/23/2024 12:29 PM [facility] LAB Eosinophils Absolute 0.26 0.00 - 0.50 K/[facility] LAB HEMETOLOGY METHOD 10/23/2024 12:29 PM EST [facility] LAB Basophils Absolute 0.08 0.00 - 0.20 K/[facility] LAB HEMETOLOGY METHOD 10/23/2024 12:29 PM EST [facility] LAB Immature Granulocytes Absolute 0.14(H) 0.00 - 0.03 K/[facility] LAB HEMETOLOGY METHOD 10/23/2024 12:29 PM EST [facility] LAB Blood Venous blood specimen / Unknown Venipuncture / Unknown 10/23/2024 8:00 AM EST 10/23/2024 11:33 AM EST Radha Gonzales MD LAB BLOOD ORDERABLES Final Res ult Performing Organization Address [facility]/ZIP Co de Phone Number [facility] LAB [address] [place] [address], [place] [phone] * (ABNORMAL) Magnesium (10/23/2024 8:00 AM EST) Magnesium 1.8(L) 1.9 - 2.6 mg/dL LAB CHEMISTRY METHOD 10/23/2024 12:53 PM EST [facility] LAB Blood Venous blood specimen / Unknown Venipuncture / Unknown 10/23/2024 8:00 AM EST 10/23/2024 11:33 AM EST Radha Gonzales MD LAB BLOOD ORDERABLES Final Res ult [facility] [address] [place] [address], [place] [phone] * (ABNORMAL) Comprehensive metabolic panel (10/23/2024 8:00 AM EST) Sodium 140 133 - 145 mmol/L LAB CHEMISTRY METHOD 10/23/2024 1:01 PM EST [facility] LAB Potassium 3.4(L) 3.5 - 5.5 mmol/L LAB CHEMISTRY METHOD 10/23/2024 1:01 PM [facility] LAB Chloride 101 96 - 110 mmol/L LAB CHEMISTRY METHOD 10/23/2024 1:01 PM [facility] LAB CO2 34(H) 21 - 32 mmol/L LAB CHEMISTRY METHOD 10/23/2024 1:01 PM [facility] LAB Anion Gap 5 3 - 11 LAB CHEMISTRY METHOD 10/23/2024 1:01 PM [facility] LAB Glucose 96 70 - 100 mg/dL LAB CHEMISTRY METHOD 10/23/2024 1:01 PM [facility] LAB BUN 83(H) 5 - 25 mg/dL LAB CHEMISTRY METHOD 10/23/2024 1:01 PM [facility] LAB Creatinine 1.70(H) 0.70 - 1.30 mg/dL LAB CHEMISTRY METHOD 10/23/2024 1:01 PM [facility] LAB eGFR 42(L) >=60 mL/min/1. 73m2 LAB CHEMISTRY METHOD 10/23/2024 1:01 PM [facility] LAB Comment:Calculation based on the??Chronic Kidney Disease Epidemiology Collaboration (CKD-EPI) equation refit??without adjustment for race. BUN/Creatinine Ratio 48.8 LAB CHEMISTRY METHOD 10/23/2024 1:01 PM [facility] LAB Calcium 9.6 8.5 - 10.5 mg/dL LAB CHEMISTRY METHOD 10/23/2024 1:01 [facility] LAB AST (SGOT) 19 10 - 42 unit/L LAB CHEMISTRY METHOD 10/23/2024 1:01 PM [facility] LAB ALT (SGPT) 14 10 - 60 unit/L LAB CHEMISTRY METHOD 10/23/2024 1:01 PM [facility] LAB Alkaline Phosphatase 95 42 - 121 unit/L LAB CHEMISTRY METHOD 10/23/2024 1:01 PM [facility] LAB Total Protein 6.1 6.0 - 8.0 g/dL LAB CHEMISTRY METHOD 10/23/2024 1:01 PM EST [facility] LAB Albumin 2.9(L) 3.2 - 5.0 g/dL LAB CHEMISTRY METHOD 10/23/2024 1:01 PM EST [facility] LAB Total Bilirubin 0.8 0.0 - 1.4 mg/dL LAB CHEMISTRY METHOD 10/23/2024 1:01 PM EST [facility] LAB Blood Venous blood specimen / Unknown Venipuncture / Unknown 10/23/2024 8:00 AM EST 10/23/2024 11:33 AM EST us Radha Gonzales MD LAB BLOOD ORDERABLES Final Res ult [facility] [address] [place] [address], documented in this encounter Visit Diagnoses Diagnosis Encounter for other general examination documented in this encounter Care Teams Regulator Tester Relationship Specialty Start Date End Date Brennan Tyson MD [address] [facility] [place] [phone] PCP - General Internal Medicine 09/25/12 documented as of this encounter
--- OUTSIDE RECORDS SUMMARY | 2024-12-21 18:25 | XMS_ITS | Encounter Summary ---
Author Organization [facility] Address [address] [place] [address] Care Team Providers Care Offshoring Manager Name Role Phone Brennan Tyson MD Primary Care Provider Unavailabl Orquidea Gagnon MD Unavailable Courtney Delong PA-C Unavailable Unavailab Vero Bueno MD Unavailable [phone] Encounter Details Date Type Department Care Team Description 10/14/2022 SCAN Medical Records [address] [place] [id number] Jere Gonzalez MD Social History Tobacco Use Types Packs/Day [...] Date/Time Associated Diagnosis Comments OUTSIDE LAB Routine 10/14/2022 OUTSIDE LAB Routine 10/14/2022 documented in this encounter Results * OUTSIDE LAB (10/14/2022) Provider Default LAB * OUTSIDE LAB (10/14/2022) Provider Default LAB documented in this encounter Visit Diagnoses Not on filedocumented in this encounter Care Teams Offshoring Manager Relationship Specialty Start Date End Date Brennan Tyson MD PCP - General Internal Medicine 12/18/17 Orquidea See MD Specialist Cardiology 08/07/21 Courtney Delong PA-C Cardiology 08/07/21 06/23/24 Vero Masters MD [address] [place] [address] Specialist Cardiology 11/19/22 documented as of this encounter
--- OUTSIDE RECORDS SUMMARY | 2024-12-21 18:25 | XMS_ITS | Encounter Summary ---
Author Organization [facility] Address [address] [place] [address] Care Team Providers Care Embossing Press Operator Molded Goods Name Role Phone Brennan Tyson MD Primary Care Provider [phone] Encounter Details Date Type Department Care Team (Late Contact Info) Description 10/26/2024 Lab Requisition [facility] - Main Lab [address] [facility] [place] [address] Radha Gonzales MD [address] [place] [address] Encounter for other general examination Social History [...] Description 12/30/2024 1:00 PM EDT [facility] [address] [address] Eren Restrepo MD 175 [facility] 200 [place] [address] documented as of this encounter Procedures Procedure Name Priority Date/Time Associated Diagnosis Comments CBC WITH AUTO DIFFERENTIAL Routine 10/26/2024 6:57 AM EST Encounter for other general examination CBC AND DIFFERENTIAL Routine 10/26/2024 6:57 AM EST Encounter for other general examination BASIC METABOLIC PANEL Routine 10/26/2024 6:57 AM EST Encounter for other general examination documented in this encounter Results * (ABNORMAL) CBC auto differential (10/26/2024 6:57 AM EST) WBC 23.0(H) 4.8 - 10.8 K/mcL LAB HEMETOLOGY METHOD 10/26/2024 1:25 PM [facility] LAB RBC 4.20(L) 4.50 - 5.50 M/mcL LAB HEMETOLOGY METHOD 10/26/2024 1:25 PM [facility] LAB Hemoglobin 10.8(L) 13.5 - 17.5 g/dL LAB HEMETOLOGY METHOD 10/26/2024 1:25 PM [facility] LAB Hematocrit 36.3(L) 42.0 - 54.0 % LAB HEMETOLOGY METHOD 10/26/2024 1:25 PM [facility] LAB MCV 86.2 79.0 - 98.0 FL LAB HEMETOLOGY METHOD 10/26/2024 1:25 PM [facility] LAB MCH 25.7(L) 27.0 - 32.0 pcg LAB HEMETOLOGY METHOD 10/26/2024 1:25 PM [facility] LAB MCHC 29.8(L) 32.0 - 37.0 g/dL LAB HEMETOLOGY METHOD 10/26/2024 1:25 PM [facility] LAB RDW 18.6(H) 11.0 - 15.0 % LAB HEMETOLOGY METHOD 10/26/2024 1:25 PM [facility] LAB Platelets 455(H) 130 - 400 K/mcL LAB HEMETOLOGY METHOD 10/26/2024 1:25 PM [facility] LAB MPV 12.2(H) 7.0 - 11.0 FL LAB HEMETOLOGY METHOD 10/26/2024 1:25 PM EST [facility] LAB NRBC 0.1 <1.0 % LAB HEMETOLOGY METHOD 10/26/2024 1:25 PM [facility] LAB NRBC Absolute 0.02 <0.10 K/mcL LAB HEMETOLOGY METHOD 10/26/2024 1:25 PM [facility] LAB Neutrophils Relative 87.9 % LAB HEMETOLOGY METHOD 10/26/2024 1:25 PM [facility] LAB Comment:This is an appended report. These results have been appended to a previously preliminary verified report. Lymphocytes Relative 4.6 % LAB HEMETOLOGY METHOD 10/26/2024 1:25 PM [facility] LAB Comment:This is an appended report. These results have been appended to a previously preliminary verified report. Monocytes Relative 3.3 % LAB HEMETOLOGY METHOD 10/26/2024 1:25 PM [facility] LAB Comment:This is an appended report. These results have been appended to a previously preliminary verified report. Eosinophils Relative 1.4 % LAB HEMETOLOGY METHOD 10/26/2024 1:25 PM [facility] LAB Comment:This is an appended report. These results have been appended to a previously preliminary verified report. Basophils Relative 0.5 % LAB HEMETOLOGY METHOD 10/26/2024 1:25 PM EST [facility] LAB Comment:This is an appended report. These results have been appended to a previously preliminary verified report. Immature Granulocytes Relative 2.3 % LAB HEMETOLOGY METHOD 10/26/2024 1:25 PM [facility] LAB Comment:This is an appended report. These results have been appended to a previously preliminary verified report. Neutrophils Absolute 20.20(H) 1.50 - 7.00 K/mcL LAB HEMETOLOGY METHOD 10/26/2024 1:25 PM EST [facility] LAB Comment:This is an appended report. These results have been appended to a previously preliminary verified report. Lymphocytes Absolute 1.05 1.00 - 5.00 K/mcL LAB HEMETOLOGY METHOD 10/26/2024 1:25 PM EST [facility] LAB Comment:This is an appended report. These results have been appended to a previously preliminary verified report. Monocytes Absolute 0.76 0.20 - 1.00 K/mcL LAB HEMETOLOGY METHOD 10/26/2024 1:25 PM EST [facility] LAB Comment:This is an appended report. These results have been appended to a previously preliminary verified report. Eosinophils Absolute 0.32 0.00 - 0.50 K/mcL LAB HEMETOLOGY METHOD 10/26/2024 1:25 PM EST [facility] LAB Comment:This is an appended report. These results have been appended to a previously preliminary verified report. Basophils Absolute 0.11 0.00 - 0.20 K/mcL LAB HEMETOLOGY METHOD 10/26/2024 1:25 PM EST [facility] LAB Comment:This is an appended report. These results have been appended to a previously preliminary verified report. Immature Granulocytes Absolute 0.53(H) 0.00 - 0.03 K/[facility] LAB HEMETOLOGY METHOD 10/26/2024 1:25 PM EST [facility] LAB Comment:This is an appended report. These results have been appended to a previously preliminary verified report. Blood Venous blood specimen / Unknown Venipuncture / Unknown 10/26/2024 6:57 AM EST 10/26/2024 9:51 AM EST us Radha Gonzales MD LAB BLOOD ORDERABLES Final Res ult [facility] [address] [place] [address], * (ABNORMAL) Basic metabolic panel (10/26/2024 6:57 AM EST) Sodium 135 133 - 145 mmol/L LAB CHEMISTRY METHOD 10/26/2024 12:15 PM [facility] LAB Potassium 3.4(L) 3.5 - 5.5 mmol/L LAB CHEMISTRY METHOD 10/26/2024 12:15 PM [facility] LAB Chloride 97 96 - 110 mmol/L LAB CHEMISTRY METHOD 10/26/2024 12:15 PM [facility] LAB CO2 28 21 - 32 mmol/L LAB CHEMISTRY METHOD 10/26/2024 12:15 PM [facility] LAB Anion Gap 10 3 - 11 LAB CHEMISTRY METHOD 10/26/2024 12:15 PM [facility] LAB Glucose 84 70 - 100 mg/dL LAB CHEMISTRY METHOD 10/26/2024 12:15 PM [facility] BUN 72(H) 5 - 25 mg/dL LAB CHEMISTRY METHOD 10/26/2024 12:15 PM [facility] LAB Creatinine 1.61(H) 0.70 - 1.30 mg/dL LAB CHEMISTRY METHOD 10/26/2024 12:15 PM [facility] LAB eGFR 45(L) >=60 mL/min/1. 73m2 LAB CHEMISTRY METHOD 10/26/2024 12:15 PM [facility] LAB Comment:Calculation based on the??Chronic Kidney Disease Epidemiology Collaboration (CKD-EPI) equation refit??without adjustment for race. BUN/Creatinine Ratio 44.7 LAB CHEMISTRY METHOD 10/26/2024 12:15 PM [facility] LAB Calcium 8.9 8.5 - 10.5 mg/dL LAB CHEMISTRY METHOD 10/26/2024 12:15 PM [facility] LAB Blood Venous blood specimen / Unknown Venipuncture / Unknown 10/26/2024 6:57 AM EST 10/26/2024 9:51 AM EST us Radha Gonzales MD LAB BLOOD ORDERABLES Final Res ult [facility] [address] [place] [address], documented in this encounter Visit Diagnoses Diagnosis Encounter for other general examination documented in this encounter Care Teams Embossing Press Operator Molded Goods Relationship Specialty Start Date End Date Brennan Tyson MD [address] [place] [address] PCP - General Internal Medicine 09/25/12 documented as of this encounter
--- OUTSIDE RECORDS SUMMARY | 2024-12-21 18:25 | XMS_ITS | Encounter Summary ---
Author Organization [facility] Address [address] [place] [address] Care Team Providers Care Distiller Name Role Phone Brennan Tyson MD Primary Care Provider UnavailOrquidea Duran MD Unavailable Courtney Delong PA-C Unavailable Unavailab Vero Bueno MD Unavailable [phone] Reason for Visit * Reason Onset Date Comments medication problems 05/04/2024 Encounter Details Date Type Department Care Team Description 05/04/2024 Telephone Pulmonology - [place] 175 [facility] [address] [place] [phone] Eren Restrepo MD [address] [place] [phone] medication problems Social History Tobacco Use Types Packs/Day Years [...] encounter Miscellaneous Notes * Telephone Encounter - Darrian Vallecillo CMA - 05/10/2024 11:09 AM EDT Pt informed. * Telephone Encounter - Darrian Vallecillo CMA - 05/04/2024 12:51 PM EDT MAYTE 02/12/24 NOV 08/12/24 * Telephone Encounter - Lizbet Mcduffie - 05/04/2024 12:04 PM EDT Pharmacy requesting alternative for DULERA 200 MCG-5MCG. Medication not covered by insurance. Suggested alternatives ADVAIR HFA 45-21 MCG, BREO ELLIPTA 100-25 MCG, DULERA 50 MCG. documented in this encounter Plan of Treatment Not on file documented as of this encounter Visit Diagnoses Not on filedocumented in this encounter Care Teams Distiller Relationship Specialty Start Date End Date Brennan Tyson MD PCP - General Internal Medicine 12/18/17 Orquidea See MD Specialist Cardiology 08/07/21 Courtney Dleong PA-C Cardiology 08/07/21 06/23/24 Vero Masters MD [address] [place] [address] Specialist Cardiology 11/19/22 documented as of this encounter
--- OUTSIDE RECORDS SUMMARY | 2024-12-21 18:25 | XMS_ITS | Encounter Summary ---
Author Organization [facility] Address [address] [place] [address] Care Team Providers Care Medical Service Representative Name Role Phone Brennan Tyson MD Primary Care Provider Unavailabl e Orquidea See MD Unavailable Courtney Delong PA-C Unavailable Unavailab Vero Bueno MD Unavailable [phone] Encounter Details Date Type Department Care Team Description 09/23/2022 Computed Tomography Technologist Report Medical Records [address] [place] [id number] Abstract, Provider Social History Tobacco Use Types [...] on filedocumented in this encounter Care Teams Medical Service Representative Relationship Specialty Start Date End Date Brennan Tyson MD PCP - General Internal Medicine 12/18/17 Orquidea See MD Specialist Cardiology 08/07/21 Courtney Delong PA-C Cardiology 08/07/21 06/23/24 Vero Masters MD [address] [facility] [address] [place] [address] Specialist Cardiology 11/19/22 documented as of this encounter
--- OUTSIDE RECORDS SUMMARY | 2024-12-21 18:25 | XMS_ITS | Encounter Summary ---
Author Organization [facility] Address [address] [place] [address] Care Team Providers Care Equine Breeder Name Role Phone Brennan Tyson MD Primary Care Provider UnavailOrquidea Duran MD Unavailable Courtney Delong PA-C Unavailable Unavailab Vero Bueno MD Unavailable [phone] Reason for Visit * Reason Onset Date Comments Faxed Refill 11/27/2018 Encounter Details Date Type Department Care Team Description 11/27/2018 Refill Pulmonology - [place] 175 [facility] [address] [place] [phone] Eren Restrepo MD [address] [place] [phone] Faxed Refill Social History Tobacco Use Types [...] * Telephone Encounter - Roseann Faith - 11/27/2018 3:05 PM EST Patient would like script to be: E-PRESCRIBED/FAXED TO PHARMACY WHEN WAS THE PATIENT'S LAST APPOINTMENT WITH THE PRESCRIBING PROVIDER? 06/19/18 Does patient have an upcoming appointment? Yes 12/11/18 (THE MEDICATION REQUESTED IS ON THE MED LIST ABOVE) All of the medications requested were on the CURRENT MEDS list Did you check the Pharmacy information above?: YES Patient wants: 30 -day supply Is this a mail order prescription request ? NO Patients current insurance carrier is: [place] / [place] / Product Type: MEDICARE [id number] documented in this encounter Plan of Treatment Not on file documented as of this encounter Visit Diagnoses Diagnosis Chronic obstructive pulmonary disease, unspecified COPD type (HCC) Elevated blood pressure reading Elevated blood pressure reading without diagnosis of hypertension S/P laparoscopic sleeve gastrectomy documented in this encounter Care Teams Equine Breeder Relationship Specialty Start Date End Date Brennan Tyson MD PCP - General Internal Medicine 12/18/17 Orquidea See MD Specialist Cardiology 08/07/21 Courtney Delong PA-C Cardiology 08/07/21 06/23/24 Vero Masters MD [address] [place] [address] Specialist Cardiology 11/19/22 documented as of this encounter
--- OUTSIDE RECORDS SUMMARY | 2024-12-21 18:25 | XMS_ITS | Encounter Summary ---
Author Organization [facility] Address [address] [place] [address] Care Team Providers Care Checkroom Chief Name Role Phone Brennan Tyson MD Primary Care Provider [phone] Encounter Details Date Type Department Care Team (Late Contact Info) Description 10/31/2024 Lab Requisition [facility] - Main Lab [address] [facility] [place] [address] Radha Gonzales MD [address] [place] [address] Encounter for other general examination Social History [...] 12/30/2024 1:00 PM EDT [facility] [address] [address] Eren Restrepo MD 175 [facility] 200 [place] [address] documented as of this encounter Procedures Procedure [...] documented in this encounter Results * Culture urine (10/30/2024 9:49 PM EST) Pathologist [facility] [place] Culture, Urine 10,000-49,000 CFU/mL Mixed urogenital roman, no uropathogens present. Suggest repeat specimen if clinically indicated. 11/01/2024 11:[address] [facility] Urine Urine specimen obtained by clean catch procedure / Unknown 10/30/2024 9:49 PM EST 10/31/2024 9:50 AM EST us Radha Gonzales MD LAB MICROBIOLOGY - GENERAL ORD ERABLES Final Result [facility] [address] [place] [address], [place] [phone] * (ABNORMAL) Urinalysis with reflex microscopic and culture (10/30/2024 9:49 PM EST) Pathologist [facility] [place] Specific [place] Urine 1.016 1.003 - 1.030 LAB URINALYSIS - AUTOMATED METHOD 10/31/2024 9:[address] [facility] pH, Urine 5.5 5.0 - 8.0 pH LAB URINALYSIS - AUTOMATED METHOD 10/31/2024 9:[address] [facility] Leukocytes, Urine Trace(A) Negative LAB URINALYSIS - AUTOMATED METHOD 10/31/2024 9:[address] [facility] Nitrite, Urine Negative Negative LAB URINALYSIS - AUTOMATED METHOD 10/31/2024 9:[address] [facility] Protein, Urine Trace <=Trace mg/dL LAB URINALYSIS - AUTOMATED METHOD 10/31/2024 9:[address] [facility] Glucose, Urine Negative Negative mg/dL LAB URINALYSIS - AUTOMATED METHOD 10/31/2024 9:[address] [facility] Ketones, Urine Negative Negative mg/dL LAB URINALYSIS - AUTOMATED METHOD 10/31/2024 9:[address] [facility] Urobilinogen , Urine 0.2 0.2 - 1.0 mg/dL LAB URINALYSIS - AUTOMATED METHOD 10/31/2024 9:[address] [facility] Bilirubin, Urine Negative Negative LAB URINALYSIS - AUTOMATED METHOD 10/31/2024 9:[address] [facility] Blood, Urine Negative Negative LAB URINALYSIS - AUTOMATED METHOD 10/31/2024 9:[address] [facility] RBC, Urine 2 0 - 4 /HPF LAB URINALYSIS - AUTOMATED METHOD 10/31/2024 9:[address] [facility] WBC, Urine 6.4(H) 0 - 4 /HPF LAB URINALYSIS - AUTOMATED METHOD 10/31/2024 9:[address] [facility] Squamous Epithelial, Urine 21 0 - 60 /LPF LAB URINALYSIS - AUTOMATED METHOD 10/31/2024 9:[address] [facility] Crystals, Urine Light Calcium Oxalate crystals. /LPF LAB URINALYSIS - AUTOMATED METHOD 10/31/2024 9:[address] [facility] Bacteria, Urine Negative Negative /HPF LAB URINALYSIS - AUTOMATED METHOD 10/31/2024 9:[address] [facility] Hyaline Casts, Urine 4.2(H) 0 - 3 /LPF LAB URINALYSIS - AUTOMATED METHOD 10/31/2024 9:[address] [facility] Urine Urine specimen obtained by clean catch procedure / Unknown 10/30/2024 9:49 PM EST 10/31/2024 8:36 AM EST Radha Gonzales MD LAB URINE ORDERABLES Final Res ult [facility] [address] [place] [address], [place] [phone] * Fuentes urine culture tube (10/30/2024 9:49 PM EST) Extra Tube Hold for add-ons. 10/31/2024 10:01 AM EST [facility] Comment:Auto resulted. Urine Urine specimen obtained by clean catch procedure / Unknown 10/30/2024 9:49 PM EST 10/31/2024 8:36 AM EST Radha Gonzales MD LAB URINE ORDERABLES Final Res ult Performing Organization Address City/[facility]/ZIP Co de Phone Number [facility] [address] [place] [address], [place] [phone] documented in this encounter Visit Diagnoses Diagnosis Encounter for other general examination documented in this encounter Care Teams Checkroom Chief Relationship Specialty Start Date End Date Brennan Tyson MD [address] [facility] [place] [address] PCP - General Internal Medicine 09/25/12 documented as of this encounter
--- OUTSIDE RECORDS SUMMARY | 2024-12-21 18:26 | XMS_ITS | Encounter Summary ---
Author Organization [facility] Address [address] [place] [address] Care Team Providers Care Matchbook Maker Name Role Phone Brennan Tyson MD Primary Care Provider UnavailOrquidea Duran MD Unavailable Courtney Delong PA-C Unavailable Unavailab Vero Bueno MD Unavailable [phone] Reason for Visit * Reason Comments E-prescribe Rx Request Encounter Details Date Type Department Care Team Description 07/15/2022 Refill Pulmonology - [place] 175 [facility] [address] [place] [phone] Eren Restrepo MD 175 [place] [phone] E-prescribe Rx Request Social History Tobacco Use [...] suspected to have Coronavirus/COVID-19? No / Unsure 07/11/2022 6:53 AM EDT documented as of this encounter Miscellaneous Notes * Telephone Encounter - Leeann Mccain - 07/15/2022 1:30 PM EDT Patient would like script to be: E-PRESCRIBED/FAXED TO PHARMACY WHEN WAS THE PATIENT'S LAST APPOINTMENT IN ADULT MEDICINE? 01/18/22 WHEN WAS THE LAST TIME THE PATIENT SAW THEIR PCP? Same as above Does patient have an upcoming appointment? Yes 07/22/22 (THE MEDICATION REQUESTED IS ON THE MED LIST ABOVE) All of the medications requested were on the CURRENT MEDS list Did you check the Pharmacy information above?: YES Patient wants: 30 -day supply Is this a mail order prescription request ? NO If the refill is from a FAXED refill request what is the RX # listed on the fax? N/A Patients current insurance carrier is: [place] / [place] / Product Type: MEDICARE [id number] documented in this encounter Plan of Treatment Not on file documented as of this encounter Visit Diagnoses Diagnosis Chronic obstructive pulmonary disease, unspecified COPD type (HCC) documented in this encounter Care Teams Matchbook Maker Relationship Specialty Start Date End Date Brennan Tyson MD PCP - General Internal Medicine 12/18/17 Orquidea See MD Specialist Cardiology 08/07/21 Courtney Delong PA-C Cardiology 08/07/21 06/23/24 Vero Masters MD [address] [place] [address] Specialist Cardiology 11/19/22 documented as of this encounter
--- OUTSIDE RECORDS SUMMARY | 2024-12-21 18:26 | XMS_ITS | Encounter Summary ---
Author Organization [facility] Address [address] [place] [address] Care Team Providers Care Clam Treader Name Role Phone Brennan Tyson MD Primary Care Provider Unavailabl Orquidea Gagnon MD Unavailable Courtney Delong PA-C Unavailable Unavailab Vero Bueno MD Unavailable [phone] Reason for Visit * Reason Onset Date Comments Hospital Procedure 05/23/2021 Cardioversion 06.15.21 Encounter Details Date Type Department Care Team Description 05/23/2021 Telephone Cardio PVC POC 154 [address] [facility] [address] [place] [address] Orquidea See MD [address] [place] [address] [phone] Hospital Procedure (Cardioversion 06.15.21) Social History Tobacco Use Types Packs/Day Years [...] encounter Miscellaneous Notes * Telephone Encounter - Pippa Vallecillo C.M.A. - 05/23/2021 10:44 AM EDT Spoke with patients about procedure. Scheduled on 06.15.21 w/ KAMINI at [facility] at 130pm. Mailing packet today. documented in this encounter Plan of Treatment Not on file documented as of this encounter Visit Diagnoses Diagnosis Atrial fibrillation, unspecified type (HCC)- Primary documented in this encounter Care Teams Clam Treader Relationship Specialty Start Date End Date Brennan Tyson MD PCP - General Internal Medicine 12/18/17 Orquidea See MD Specialist Cardiology 08/07/21 Courtney Delong PA-C Cardiology 08/07/21 06/23/24 Vero Masters MD [address] [place] [address] Specialist Cardiology 11/19/22 documented as of this encounter
--- OUTSIDE RECORDS SUMMARY | 2024-12-21 18:26 | XMS_ITS | Encounter Summary ---
Author Organization [facility] Address [address] [place] [address] Care Team Providers Care Bar Steward Name Role Phone Brennan Tyson MD Primary Care Provider UnavailOrquidea Duran MD Unavailable Courtney Delong PA-C Unavailable Unavailab Vero Bueno MD Unavailable [phone] Reason for Visit * Reason Onset Date Comments DME Request 02/27/2022 Encounter Details Date Type Department Care Team Description 02/27/2022 Telephone Pulmonology - [place] 175 [facility] [address] [place] [address] Eren Restrepo MD [address] [place] [phone] DME Request Social History Tobacco Use Types Packs/Day [...] suspected to have Coronavirus/COVID-19? No / Unsure 02/20/2022 2:07 PM EDT documented as of this encounter Miscellaneous Notes * Telephone Encounter - Sheila Bailey - 02/27/2022 3:56 PM EDT Done faxed order to [facility] for o2 documented in this encounter Plan of Treatment Not on file documented as of this encounter Visit Diagnoses Not on filedocumented in this encounter Care Teams Bar Steward Relationship Specialty Start Date End Date Brennan Tyson MD PCP - General Internal Medicine 12/18/17 Orquidea See MD Specialist Cardiology 08/07/21 Courtney Delong PA-C Cardiology 08/07/21 06/23/24 Vero Masters MD [address] [place] [address] Specialist Cardiology 11/19/22 documented as of this encounter
--- OUTSIDE RECORDS SUMMARY | 2024-12-21 18:26 | XMS_ITS | Encounter Summary ---
Author Organization [facility] Address [address] [place] [address] Care Team Providers Care Purchasing Associate Name Role Phone Brennan Tyson MD Primary Care Provider Unavailabl e Orquidea See MD Unavailable Courtney Delong PA-C Unavailable Unavailab Vero Masters MD Unavailable [phone] Encounter Details Date Type Department Care Team Description 05/09/2021 Laborer Concrete Paving Report Medical Records [address] [place] [address] Brennan Tyson MD Social History Tobacco Use [...] on filedocumented in this encounter Care Teams Purchasing Associate Relationship Specialty Start Date End Date Brnenan Tyson MD PCP - General Internal Medicine 12/18/17 Orquidea See MD Specialist Cardiology 08/07/21 Courtney Delong PA-C Cardiology 08/07/21 06/23/24 Vero Masters MD [address] [place], [place] [phone] Specialist Cardiology 11/19/22 documented as of this encounter
--- OUTSIDE RECORDS SUMMARY | 2024-12-21 18:26 | XMS_ITS | Patient Health Record ---
Author Organization [facility] Address [address] [facility] [address] [place] [address] Care Team Providers Care Supervisor Concrete Stone Finishing Name Role Phone Brennan Tyson Primary Care Provider UnavailARMANDO Yoder Unavailable [phone] Allergies Allergen (clinical drug ingredient) Drug/Non Drug Allergy documented on EMR Reaction Allergy Type Onset Date Status Horse serum proteins AB. IGE.RAST CLASS (uncoded) Unknown Allergy Active labetalol Labetalol Unknown Drug Allergy Active Tetanus Toxoids Unknown Drug Allergy A ctive Reason For Referral No Information Medications Medication SIG (Take, Route, Frequency, Duration) Notes Start Date End Date Status Potassium Chloride Sydnee ER 10 MEQ 1 tablet with food Orally Twice a day Active Carvedilol 25 MG 1 tablet with food Orally Twice a day Active Omeprazole 40 MG 1 capsule 1/2 to 1 hour before morning meal Orally Once a day Active busPIRone HCl 5 MG 1 tablet Orally Twic e a day Active Minoxidil 2.5 MG 1 tablet Orally Twic e a day Active Bumetanide 2 MG 1 tablet Orally Once a day Active metOLazone 5 MG 1 tablet Orally Two times a Week Active Ketoconazole 2 % 1 application Externally Once a day Active Tamsulosin HCl 0.4 MG 1 capsule Orally O nce a day Active Incruse Ellipta 62.5 MCG/ACT 1 puff Inhalation Once a day Active Sertraline HCl 100 MG 1 tablet Orally On ce a day Active Fluticasone Propionate 50 MCG/ACT 1 spray in each nostril Nasally Twice a day Active rOPINIRole HCl 1 MG 1 tablet 1 to 3 hour s before bedtime Orally Once a day Active Fenofibrate 160 MG 1 tablet Orally Once a day Active Atorvastatin Calcium 40 MG 1 tablet Orally Once a day Active Melatonin 3 MG 1 tablet at bedtime as needed Orally Once a day Active Aspirin 81 81 MG 1 tablet Orally Once a day Active LORazepam 0.5 MG 1 tablet at bedtime as needed Orally Once a day Active Albuterol Sulfate 2 puffs three times a day Active Ketotifen Fumarate 0.025% A ctive Advair Diskus 500-50 MCG/ACT 1 puff Inhalation Twice a day Active Problems Problem Type SNOMED Code ICD Code Onset Dates Problem Status W/U Status Risk Notes Problem 4746351068907 Type 2 diabetes 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) Active confirmed Problem 963238390 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 Procedures Procedure Date Ordered Date Performed Result Body Sit e Trim dystrophic toenails any number 12/15/2024 N/A Encounters Encounter Location Date Provider Diagnosis [facility] [address] 12/15/2024 ARMANDO TORREZ Type 2 diabetes mellitus with peripheral neuropathy E11.42 ; 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 He tolerated this well. Patient [...] unguium (ICD-10 - B35.1) Plan Of Treatment Pending Test Test Name Order Date Trim dystrophic toenails any number 11/21 Next Appt Details Provider Name:ARMANDO TORREZ, 03/17/2025 10:30:00 AM, [address] [facility] [address], [address], Insurance Providers Payer Name Payer Address Payer Phone Subscriber Number Group Number Insured Name Patient Relationship to Insured Coverage Start Date Coverage End Date Medicare of [place] [address] [place] [phone] [id number] Keo Stephen Self - patient is the insured Medical (General) History Medical History History ICD Code anxiety aortic insufficiency arteriosclerotic heart disease atrial fibrillation atypical angina CAD S/P percutaneous coronary angioplast y chronic kidney disease, stage 3a COPD without exacerbation Cerebral vascular accident Diastolic dysfunction dilated aortic root Esophageal reflux Essential hypertension Hyperlipidemia Major depression in partial remission Nephrolithiasis Obese class 1 Obesity Obstructive sleep apnea Type 2 diabetes mellitus with renal carly festations Surgical History Surgery Date(Month/Year) adenoidectomy laparoscopy, surgical, gastr ic restrictive procedure; longitudinal gastrectomy tonsillectomy adrenalectomy Hospitalization History Reason Date(Month/Year) pneumonia 1 week. 10/19/2024
--- OUTSIDE RECORDS SUMMARY | 2024-12-21 18:26 | XMS_ITS | Encounter Summary ---
Author Organization [facility] Address [address] [facility] [address] [place] [address] Phone Care Team Providers Care Special Effects Technician Name Role Phone Brennan Tyson MD Primary Care Provider [phone] Encounter Details Date Type Department Care Team (Late st Contact Info) Description 08/22/2022 Documentation Only [facility] [address] [facility] [address] [place] [phone] Radha Salvador Social History Tobacco Use Types Packs/Day Years Used Date Smoking Tobacco: Never Smokeless Tobacco: Never Alcohol Use Standard Drinks/Week Comments No 0 (1 standard drink = 0.6 oz pur e alcohol) Sex and Gender Information Value Date Recorded Sex Assigned at Not on file Legal Sex Male 5:23 PM EST Gender Identity Not on file Sexual Orientation Not on file documented as of this encounter Plan of Treatment Not on file documented as of this encounter Visit Diagnoses Not on filedocumented in this encounter Care Teams Special Effects Technician Relationship Specialty Start Date End Date Brennan Tyson MD [address] [place], [place] PCP - General 10/30/20 documented as of this encounter
--- OUTSIDE RECORDS SUMMARY | 2024-12-21 18:26 | XMS_ITS | Encounter Summary ---
Author Organization [facility] Address [address] [place] [address] Care Team Providers Care Gas Appliance Installer Name Role Phone Brennan Tyson MD Primary Care Provider Unavailabl Orquidea Gagnon MD Unavailable Courtney Delong PA-C Unavailable Unavailab Vero Bueno MD Unavailable [phone] Reason for Visit * Reason Onset Date Comments Medication 05/31/2022 Hold anticoag fo r back injection Encounter Details Date Type Department Care Team Description 05/31/2022 Telephone Cardio PVC POC [address] [facility] [address] [place] [address] Orquidea See MD [address] [place] [phone] Medication (Hold anticoag for back injection) Social History Tobacco Use Types Packs/Day Years [...] encounter Miscellaneous Notes * Telephone Encounter - Ximena Topete RN - 06/07/2022 11:28 AM EDT Relayed HEATHER response and patient denies any new diagnosis or cardiac issues . He also denied any hxstroke. Reminded him of his upcoming appt. * Telephone Encounter - Courtney Delong PA-C - 06/07/2022 11:22 AM EDT We have not seen him since August- any new changes to his health or diagnoses (stroke etc)? If not it is fine to hold * Telephone Encounter - Sayda De La Vega - 06/07/2022 10:41 AM EDT Patient called in regarding his Eliquis. Patient needs to hold the medication for 3 days for a backinjection. Patient wants the OK from the provider to do so. Patient can be reached at [phone] * Telephone Encounter - DAY Frias - 05/31/2022 5:08 PM EDT Good afternoon. This can be answered by Dr. See on Friday. Thanks. Jt?? * Telephone Encounter - Reyna Marcos C.M.A. - 05/31/2022 1:53 PM EDT We received a call from [facility] they would like for the patient to hold Eliquis 3 days prior to Lumbar Epidural back injection. If you agree with this please call [phone] or fax to [phone]. documented in this encounter Plan of Treatment Not on file documented as of this encounter Visit Diagnoses Not on filedocumented in this encounter Care Teams Gas Appliance Installer Relationship Specialty Start Date End Date Brennan Tyson MD PCP - General Internal Medicine 12/18/17 Orquidea See MD Specialist Cardiology 08/07/21 Courtney Delong PA-C Cardiology 08/07/21 06/23/24 Vero Masters MD [address] [facility] [address] [place] [address] Specialist Cardiology 11/19/22 documented as of this encounter
--- OUTSIDE RECORDS SUMMARY | 2024-12-21 18:26 | XMS_ITS | Encounter Summary ---
Author Organization [facility] Address [address] [place] [address] Care Team Providers Care Controlled Atmospheric Furnace Brazer Name Role Phone Brennan Tyson MD Primary Care Provider UnavailOrquidea Duran MD Unavailable Courtney Delong PA-C Unavailable Unavailab Vero Bueno MD Unavailable [phone] Reason for Visit * Reason Comments E-prescribe Rx Request Encounter Details Date Type Department Care Team Description 08/19/2022 Refill Pulmonology - [place] 175 [facility] [address] [place] [phone] Eren Restrepo MD [address] [place] [phone] E-prescribe Rx Request Social History Tobacco Use [...] suspected to have Coronavirus/COVID-19? No / Unsure 08/22/2022 8:51 AM EDT documented as of this encounter Miscellaneous Notes * Telephone Encounter - Allan Salvador - 08/22/2022 3:44 PM EDT Pharmacy is requesting an Alternative Pharmacy comment : ALTERNATIVE REQUESTED ; MAX ADULT DOSE IS 4 SPRAYS DAILY, EITHER 2 SP NOST QD * Telephone Encounter - Leeann Mccain - 08/19/2022 11:02 AM EDT Patient would like script to be: E-PRESCRIBED/FAXED TO PHARMACY WHEN WAS THE PATIENT'S LAST APPOINTMENT IN ADULT MEDICINE? 07/22/22 WHEN WAS THE LAST TIME THE PATIENT SAW THEIR PCP? Same as above Does patient have an upcoming appointment? Yes 01/20/23 (THE MEDICATION REQUESTED IS ON THE MED [...] / [place] / Product Type: [place]ICARE [id number] documented in this encounter Plan of Treatment Not on file documented as of this encounter Visit Diagnoses Diagnosis Chronic obstructive pulmonary disease, unspecified COPD type (HCC) documented in this encounter Care Teams Controlled Atmospheric Furnace Brazer Relationship Specialty Start Date End Date Brennan Tyson MD PCP - General Internal Medicine 12/18/17 Orquidea See MD Specialist Cardiology 08/07/21 Courtney Delong PA-C Cardiology 08/07/21 06/23/24 Vero Masters MD [address] [facility] [address] [place] [address] Specialist Cardiology 11/19/22 documented as of this encounter
--- OUTSIDE RECORDS SUMMARY | 2024-12-21 18:26 | XMS_ITS | Encounter Summary ---
Author Organization [facility] Address [address] [place] [address] Care Team Providers Care Functional Tester Typewriters Name Role Phone Brennan Tyson MD Primary Care Provider UnavailOrquidea Duran MD Unavailable Courtney Delong PA-C Unavailable Unavailab Vero Bueno MD Unavailable [phone] Reason for Visit * Reason Onset Date Comments DME Request 08/04/2023 Encounter Details Date Type Department Care Team Description 08/04/2023 Telephone Pulmonology - [place] 175 [facility] [address] [place] [address] Eren Restrepo MD [address] [place] [phone] DME Request Social History Tobacco Use Types [...] encounter Miscellaneous Notes * Telephone Encounter - Doris Javier M.A. - 08/22/2023 3:50 PM EDT POC order faxed to [facility]. * Telephone Encounter - Leeann Mccain CMA - 08/05/2023 2:01 PM EDT Signed and faxed back * Telephone Encounter - Roxy Matias - 08/04/2023 2:28 PM EDT Reciecved dme fax from [facility] Re: Confirmation of order reliant pharmacy NOV 08/13/23 MAYTE 08/22/22 documented in this encounter Plan of Treatment Not on file documented as of this encounter Visit Diagnoses Not on filedocumented in this encounter Care Teams Functional Tester Typewriters Relationship Specialty Start Date End Date Brennan Tyson MD PCP - General Internal Medicine 12/18/17 Orquidea See MD Specialist Cardiology 08/07/21 Courtney Delong PA-C Cardiology 08/07/21 06/23/24 Vero Masters MD [address] [place] [address] Specialist Cardiology 11/19/22 documented as of this encounter
--- OUTSIDE RECORDS SUMMARY | 2024-12-21 18:26 | XMS_ITS | Encounter Summary ---
Author Organization [facility] Address [address] [place] [address] Care Team Providers Care Upholstery Tech Name Role Phone Brennan Tyson MD Primary Care Provider UnavailOrquidea Duran MD Unavailable Courtney Delong PA-C Unavailable Unavailab Vero Bueno MD Unavailable [phone] Reason for Visit * Reason Comments E-prescribe Rx Request Encounter Details Date Type Department Care Team Description 12/20/2021 Refill Pulmonology - [place] [address] [facility] [address] [place] [phone] Eren Restrepo MD [address] [place] [phone] E-prescribe Rx Request Social History Tobacco Use [...] encounter Miscellaneous Notes * Telephone Encounter - Amina Mann - 12/25/2021 4:20 PM EST pended * Telephone Encounter - May Beltrán - 12/25/2021 2:58 PM EST Patient would like script to be: E-PRESCRIBED/FAXED TO PHARMACY WHEN WAS THE PATIENT'S LAST APPOINTMENT IN ADULT MEDICINE? 07/20/21 WHEN WAS THE LAST TIME THE PATIENT SAW THEIR PCP? Same as above Does patient have an upcoming appointment? Yes 01/18/22 (THE MEDICATION REQUESTED IS ON THE MED [...] / Plan[place] / Product Type: MEDICARE [id number] documented in this encounter Plan of Treatment Not on file documented as of this encounter Visit Diagnoses Diagnosis Chronic obstructive pulmonary disease, unspecified COPD type (HCC) documented in this encounter Care Teams Upholstery Tech Relationship Specialty Start Date End Date Brennan Tyson MD PCP - General Internal Medicine 12/18/17 rOquidea See MD Specialist Cardiology 08/07/21 Courtney Delong PA-C Cardiology 08/07/21 06/23/24 Vero Masters MD [address] [place] [address] Specialist Cardiology 11/19/22 documented as of this encounter
--- OUTSIDE RECORDS SUMMARY | 2024-12-21 18:26 | XMS_ITS | Encounter Summary ---
Author Organization [facility] Address [address] [place] [address] Care Team Providers Care Purchasing Administrator Name Role Phone Brennan Tyson MD Primary Care Provider Unavailabl e Orquidea See MD Unavailable Courtney Delong PA-C Unavailable Unavailab Vero Bueno MD Unavailable [phone] Encounter Details Date Type Department Care Team Description 06/07/2022 Orders Only Cardio PVC POC [address] [facility] [address] [place] [address] Orquidea See MD [address] [place] [id number] Social History Tobacco Use Types Packs/Day Years [...] filedocumented in this encounter Care Teams Purchasing Administrator Relationship Specialty Start Date End Date Brennan Tyson MD PCP - General Internal Medicine 12/18/17 Orquidea See MD Specialist Cardiology 08/07/21 Courtney Delong PA-C Cardiology 08/07/21 06/23/24 Vero Masters MD [address] [facility] [address] [place] [address] Specialist Cardiology 11/19/22 documented as of this encounter
--- OUTSIDE RECORDS SUMMARY | 2024-12-21 18:26 | XMS_ITS | Encounter Summary ---
Author Organization [facility] Address [address] [place] [address] Care Team Providers Care Litigation Attorney Name Role Phone Brennan Tyson MD Primary Care Provider UnavailOrquidea Duran MD Unavailable Courtney Delong PA-C Unavailable Unavailab Vero Bueno MD Unavailable [phone] Reason for Visit * Reason Onset Date Comments Medication 02/28/2022 Encounter Details Date Type Department Care Team Description 02/28/2022 Telephone Pulmonology - [place] [address] [facility] [address] [place] [phone] Eren Restrepo MD [address] [place] [phone] Medication Social History Tobacco Use Types Packs/Day Years [...] encounter Miscellaneous Notes * Telephone Encounter - ANYA Daniel 03/25/2022 8:59 AM EDT LVM for Radha Ro from [facility] at [phone] ext [phone]. Left information from Dr. Restrepo. Pt is all set. * Telephone Encounter - Eren Restrepo MD - 03/22/2022 6:04 PM EDT Spoke with pt- he is okay with current regiment. Please let them know * Telephone Encounter - Quin Morris - 03/22/2022 10:13 AM EDT Derek still waiting on response regarding medication, looking for something longer lasting. Please advise. Please contact Derek angelo at [phone] ext [phone] * Telephone Encounter - Quin Morris - 03/14/2022 12:22 PM EDT Derek still waiting on response please advise. Please contact Derek angelo at [phone] ext [phone] * Telephone Encounter - Jordana Willis M.A. - 03/11/2022 3:20 PM EDT Last seen 01/18/22, please advise, thank you. * Telephone Encounter - Quin Morris - 03/11/2022 1:40 PM EDT [facility] is currently on Albuterol, but the patient is askingfor something longer lasting if Dr. Restrepo will approve it. Please contact Derek gi at [phone] ext [phone] * Telephone Encounter - Elise Kaurdylan - 02/28/2022 4:52 PM EDT Derek is calling they said that this patient is currently on Albuterol, but the patient is askingfor something longer lasting if Dr. Restrepo will approve it documented in this encounter Plan of Treatment Not on file documented as of this encounter Visit Diagnoses Not on filedocumented in this encounter Care Teams Litigation Attorney Relationship Specialty Start Date End Date Brennan Tyson MD PCP - General Internal Medicine 12/18/17 Orquidea See MD Specialist Cardiology 08/07/21 Courtney Delong PA-C Cardiology 08/07/21 06/23/24 Vero Masters MD [address] [place] [address] Specialist Cardiology 11/19/22 documented as of this encounter
--- OUTSIDE RECORDS SUMMARY | 2024-12-21 18:26 | XMS_ITS | Encounter Summary ---
Author Organization [facility] Address [address] [place] [address] Care Team Providers Care Water Taxi Boat Mate Name Role Phone Brennan Tyson MD Primary Care Provider UnavailOrquidea Duran MD Unavailable Courtney Delong PA-C Unavailable Unavailab Vero Bueno MD Unavailable [phone] Encounter Details Date Type Department Care Team Description 01/30/2022 Orders Only Pulmonology - [place] [address] [facility] [address] [place] [phone] Eren Restrepo MD [address] [place] [phone] Chronic obstructive pulmonary disease, unspecified COPD type (HCC); Pulmonary nodule Social History Tobacco Use Types Packs/Day Years [...] suspected to have Coronavirus/COVID-19? No / Unsure 01/18/2022 7:43 AM EDT documented as of this encounter Plan of Treatment Not on file documented as of this encounter Procedures Procedure Name Priority Date/Time Associated Diagnosis Comments LA NONINVASIVE EAR/PULSE OXIMETRY OVERNIGHT MONITOR Routine 01/20/2022 Chronic obstructive pulmonary disease, unspecified COPD type (HCC) Pulmonary nodule documented in this encounter Results * OXIMETRY,OVERNITE (01/20/2022) Eren Restrepo MD PERFORMABLES documented in this encounter Visit Diagnoses Diagnosis Chronic obstructive pulmonary disease, unspecified COPD type (HCC) Pulmonary nodule Solitary pulmonary nodule documented in this encounter Care Teams Water Taxi Boat Mate Relationship Specialty Start Date End Date Brennan Tyson MD PCP - General Internal Medicine 12/18/17 Orquidea See MD Specialist Cardiology 08/07/21 Courtney Delong PA-C Cardiology 08/07/21 06/23/24 Vero Masters MD [address] [address] Specialist Cardiology 11/19/22 documented as of this encounter
--- OUTSIDE RECORDS SUMMARY | 2024-12-21 18:26 | XMS_ITS | Encounter Summary ---
Author Organization [facility] Address [address] [place] [address] Care Team Providers Care Hadoop Architect Name Role Phone Brennan Tyson MD Primary Care Provider Brennan Schaefer MD Primary Care Provider UnavailOrquidea Duran MD Unavailable Courtney Delong PA-C Unavailable Unavailab Vero Bueno MD Unavailable [phone] Encounter Details Date Type Department Care Team Description 12/16/2017 Refill Pulmonology - [address] [place] [address] Dena Hale NP Social History Tobacco Use Types Packs/Day Years Used Date Smoking Tobacco: Never Assessed Sex Assigned at Date Recorded Male 09/29/2023 11:15 AM EST Job Start Date Occupation Industry Not on file Not on file Not on file documented as of this encounter Miscellaneous Notes * Telephone Encounter - Dena Hale NP - 12/17/2017 10:29 AM EST sent * Telephone Encounter - Tiffani Cheng M.A. - 12/17/2017 8:38 AM EST [facility] in computer please send * Telephone Encounter - Dena Hale NP - 12/16/2017 4:52 PM EST Can you find out what pharmacy the patient uses Thank you * Telephone Encounter - Dena Hale NP - 12/16/2017 4:52 PM EST Cannot sent Please put in the patient's pharmacy Thank you * Telephone Encounter - Tiffani Cheng M.A. - 12/16/2017 3:01 PM EST Needs to cont w chayoair Zur[place] not a convered med on his ins documented in this encounter Plan of Treatment Not on file documented as of this encounter Visit Diagnoses Not on filedocumented in this encounter Care Teams Hadoop Architect Relationship Specialty Start Date End Date Brennan Tyson MD PCP - General Internal Medicine 12/18/17 Brennan Tyson MD PCP - General 09/25/12 12/17/17 Orquidea See MD Specialist Cardiology 08/07/21 Courtney Delong PA-C Cardiology 08/07/21 06/23/24 Vero Masters MD [address] [place] [address] Specialist Cardiology 11/19/22 documented as of this encounter
--- OUTSIDE RECORDS SUMMARY | 2024-12-21 18:26 | XMS_ITS | Clinical Summary ---
Author Organization Unknown Care Team Providers Care Line Maintenance Name Role Phone MITCH RINCON, CHRISTINA Unavailable Unavailable MINOR RN, ANKIT Unavailable Unavailable MILTON MELGOZA, DERIAN Unavailable Unavailab carlota JOLLY ([facility]) [facility], COCO Unavailable Unavailable CRUZ PT, REJI Unavailable Unavailable Payers Payer Name Policy Type Policy Number Effective Date Expira tion Date MEDICARE - [place] - [id number] MEDICAID [facility] - [id number] Problems Condition Name Condition Details Condition Category Status Onset Date Resolution Date Last Treatment Date Treating Clinician Comments PNEUMONIA, UNSPECIFIED ORGANISM Active 11-07 00:00: 00 CHR OBSTRUCTIVE PULMON DISEASE WITH (ACUTE) LOWER RESP INFCT Active 11-07 00:00: 00 ANXIETY DISORDER, UNSPECIFIED Active 11-07 00:00: 00 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-4/UNSP CHR KDNY Active 11-07 00:00: 00 UNSPECIFIED SYSTOLIC (CONGESTIVE) HEART FAILURE Active 11-07 00:00: 00 TYPE 2 DIABETES MELLITUS W DIABETIC CHRONIC KIDNEY DISEASE Active 11-07 00:00: 00 CHRONIC KIDNEY DISEASE, STAGE 3A Active 11-07 00:00: 00 UNSPECIFIED ATRIAL FIBRILLATION Active 11-07 00:00: 00 HYPERLIPIDEM IA, UNSPECIFIED Active 11-07 00:00: 00 Problems related to health literacy Active 11-07 00:00: 00 DEPRESSION, UNSPECIFIED Active 11-07 00:00: 00 ATHSCL HEART DISEASE OF [place] CORONARY ARTERY W/O ANG PCTRS Active 11-07 00:00: 00 GOUT, UNSPECIFIED Active 11-07 00:00: 00 BENIGN PROSTATIC HYPERPLASIA WITHOUT LOWER URINRY TRACT SYMP Active 11-07 00:00: 00 PRESENCE OF LEFT ARTIFICIAL KNEE JOINT Active 11-07 00:00: 00 CUSTODIAL (CURRENT) USE OF ASPIRIN Active 11-07 00:00: 00 CUSTODIAL (CURRENT) USE OF INHALED STEROIDS Active 11-07 00:00: 00 DEPENDENCE ON SUPPLEMENTAL OXYGEN Active 11-07 00:00: 00 Allergies, Adverse Reactions, Alerts Allergy Name Allergy Type Status Severity Reaction(s) Onset Date Inactive Date Treating Clinician Comments HORSE SERUM PRODUCTS Propensity to adverse reactions Active 2024-10 10:36:4 0 Medications Ordered Medication Name Filled Medication Name Start Date Stop Date Current Medication? Ordering Clinician Indication Dosage Frequency Signature (SIG) Comments Components sertraline 100 mg tablet 10-22 00:00: 00 Yes [id number] 1 tablet DAILY 1 tablet DAILY (route: oral) Med Classific ation: Central Nervous System Agents buspirone 5 mg tablet 2023-10 00:00: 00 Yes [id number] 5 mg 2 TIMES DAILY 5 mg 2 TIMES DAILY (route: oral) Med Classific ation: Central Nervous System Agents albuterol sulfate HFA 90 mcg/actuati on aerosol inhaler 2023-10 00:00: 00 Yes [id number] 2 puff EVERY 6 HOURS 2 puff EVERY 6 HOURS (route: inhalation ) Med Classific ation: Respirato ry Therapy Agents allopurinol 100 mg tablet 11-07 00:00: 00 Yes [id number] 2 tablet DAILY 2 tablet DAILY (route: oral) Med Classific ation: Gout and Hyperuric emia Therapy atorvastati n 40 mg tablet 11-07 00:00: 00 Yes [id number] 1 tablet DAILY 1 tablet DAILY (route: oral) Med Classific ation: Cardiovas cular Therapy Agents Breo Ellipta 200 mcg-25 mcg/dose powder for inhalation 11-07 00:00: 00 Yes [id number] 1 inhalat ion DAILY 1 inhalation DAILY (route: inhalation ) Med Classific ation: Respirato ry Therapy Agents bumetanide 1 mg tablet 11-07 00:00: 00 Yes [id number] Per instruc tions DIRECTED Per instructio ns DIRECTED (route: oral) Med Classific ation: Cardiovas cular Therapy Agents carvedilol 25 mg tablet 11-07 00:00: 00 Yes [id number] 1 tablet 2 TIMES DAILY 1 tablet 2 TIMES DAILY (route: oral) Med Classific ation: Cardiovas cular Therapy Agents ferrous sulfate 325 mg (65 mg iron) tablet 11-07 00:00: 00 Yes [id number] 1 tablet DAILY 1 tablet DAILY (route: oral) Med Classific ation: Electroly te Balance-N utritiona l Products isosorbide mononitrate ER 30 mg tablet,exte nded release 24 hr 11-07 00:00: 00 Yes [id number] 1 tablet DAILY 1 tablet DAILY (route: oral) Med Classific ation: Cardiovas cular Therapy Agents metolazone 2.5 mg tablet 11-07 00:00: 00 Yes [id number] 2 tablet 2 TIMES A WEEK 2 tablet 2 TIMES A WEEK (route: oral) Med Classific ation: Cardiovas cular Therapy Agents montelukast 10 mg tablet 11-07 00:00: 00 Yes [id number] 1 tablet BEDTIME 1 tablet BEDTIME (route: oral) Med Classific ation: Respirato ry Therapy Agents ropinirole 2 mg tablet 11-07 00:00: 00 Yes [id number] 1 tablet BEDTIME 1 tablet BEDTIME (route: oral) Med Classific ation: Central Nervous System Agents tamsulosin 0.4 mg capsule 11-07 00:00: 00 Yes [id number] 1 capsule EVERY PM 1 capsule EVERY PM (route: oral) Med Classific ation: Genitouri nary Therapy aspirin 81 mg tablet,tamika yed release 11-07 00:00: 00 Yes [id number] 1 tablet BEDTIME 1 tablet BEDTIME (route: oral) Med Classific ation: Hematolog ical Agents fenofibrate 160 mg tablet 11-07 00:00: 00 Yes [id number] 0.5 tablet DAILY 0.5 tablet DAILY (route: oral) Med Classific ation: Cardiovas cular Therapy Agents Klor-Con 10 mEq tablet,exte nded release 11-07 00:00: 00 Yes [id number] 1 tablet DAILY 1 tablet DAILY (route: oral) Med Classific ation: Electroly te Balance-N utritiona l Products lorazepam 0.5 mg tablet 11-07 00:00: 00 Yes [id number] 1 tablet DAILY 1 tablet DAILY (route: oral) Med Classific ation: Central Nervous System Agents omeprazole 40 mg capsule,del ayed release 11-07 00:00: 00 Yes [id number] 1 capsule 2 TIMES DAILY 1 capsule 2 TIMES DAILY (route: oral) Med Classific ation: Gastroint estinal Therapy Agents oxygen gas for inhalation 11-07 00:00: 00 Yes [id number] 2 Liter O2 - NIGHTLY 2 Liter O2 - NIGHTLY (route: inhalation ) Alternate Route: O2 - NASAL CANNULA. Med Classific ation: Medical Supplies and Durable Medical Equipment (DME) Vital Signs Vital Name Observation Time Observation Value Commen ts Temperature 2024-12-15 16:30:00.000 98.6 [degF] Temperature 2024-12-14 11:47:00.000 97.1 [degF] Temperature 2024-12-08 09:08:00.000 98.5 [degF] Temperature 2024-11-23 10:27:00.000 98.7 [degF] Temperature 2024-11-17 11:40:00.000 98.5 [degF] Temperature 2024-11-12 09:05:00.000 98.5 [degF] Temperature 2024-11-11 09:57:00.000 98.2 [degF] Temperature 2024-11-07 11:42:00.000 97 [degF] BMI (%) 2024-11-07 11:42:00.000 29 kg/m2 Height 2024-11-07 11:42:00.000 66 [in_us] Pulse 2024-12-15 16:30:00.000 83 /min Pulse 2024-12-14 11:47:00.000 68 /min Pulse 2024-12-09 11:53:00.000 68 /min Pulse 2024-12-08 09:08:00.000 62 /min Pulse 2024-12-07 12:06:00.000 96 /min Pulse 2024-11-26 11:03:00.000 93 /min Pulse 2024-11-23 10:41:00.000 103 /min Pulse 2024-11-23 10:27:00.000 87 /min Pulse 2024-11-22 14:02:00.000 67 /min Pulse 2024-11-17 11:40:00.000 74 /min Pulse 2024-11-16 11:25:00.000 85 /min Pulse 2024-11-15 08:57:00.000 68 /min Pulse 2024-11-12 09:05:00.000 78 /min Pulse 2024-11-11 09:57:00.000 62 /min Pulse 2024-11-07 11:42:00.000 83 /min O2 Saturation (%) 2024-12-15 16:30:00.000 99 % O2 Saturation (%) 2024-12-08 09:08:00.000 99 % O2 Saturation (%) 2024-11-23 10:41:00.000 97 % O2 Saturation (%) 2024-11-23 10:27:00.000 95 % O2 Saturation (%) 2024-11-17 11:40:00.000 97 % O2 Saturation (%) 2024-11-12 09:05:00.000 97 % O2 Saturation (%) 2024-11-11 09:57:00.000 97 % O2 Saturation (%) 2024-11-07 11:42:00.000 96 % Respirations 2024-12-15 16:30:00.000 16 /min Respirations 2024-12-14 11:47:00.000 18 /min Respirations 2024-12-09 11:53:00.000 18 /min Respirations 2024-12-08 09:08:00.000 16 /min Respirations 2024-12-07 12:06:00.000 18 /min Respirations 2024-11-26 11:03:00.000 18 /min Respirations 2024-11-23 10:27:00.000 18 /min Respirations 2024-11-22 14:02:00.000 18 /min Respirations 2024-11-17 11:40:00.000 18 /min Respirations 2024-11-16 11:25:00.000 18 /min Respirations 2024-11-15 08:57:00.000 18 /min Respirations 2024-11-12 09:05:00.000 16 /min Respirations 2024-11-11 09:57:00.000 20 /min Respirations 2024-11-07 11:42:00.000 16 /min Weight (lbs) 2024-11-07 11:42:00.000 185 [lb_av] Systolic Blood Pressure 2024-12-15 16:30:00.000 138 mm [Hg] Systolic Blood Pressure 2024-12-14 11:47:00.000 118 mm [Hg] Systolic Blood Pressure 2024-12-09 11:53:00.000 122 mm [Hg] Systolic Blood Pressure 2024-12-08 09:08:00.000 128 mm [Hg] Systolic Blood Pressure 2024-12-07 12:06:00.000 120 mm [Hg] Systolic Blood Pressure 2024-11-26 11:03:00.000 110 mm [Hg] Systolic Blood Pressure 2024-11-23 10:27:00.000 108 mm [Hg] Systolic Blood Pressure 2024-11-22 14:02:00.000 132 mm [Hg] Systolic Blood Pressure 2024-11-17 11:40:00.000 91 mm[ Hg] Systolic Blood Pressure 2024-11-16 11:25:00.000 122 mm [Hg] Systolic Blood Pressure 2024-11-15 08:57:00.000 122 mm [Hg] Systolic Blood Pressure 2024-11-12 09:05:00.000 130 mm [Hg] Systolic Blood Pressure 2024-11-11 09:57:00.000 126 mm [Hg] Systolic Blood Pressure 2024-11-07 11:42:00.000 96 mm[ Hg] Diastolic Blood Pressure 2024-12-15 16:30:00.000 68 mm [Hg] Diastolic Blood Pressure 2024-12-14 11:47:00.000 64 mm [Hg] Diastolic Blood Pressure 2024-12-09 11:53:00.000 72 mm [Hg] Diastolic Blood Pressure 2024-12-08 09:08:00.000 72 mm [Hg] Diastolic Blood Pressure 2024-12-07 12:06:00.000 78 mm [Hg] Diastolic Blood Pressure 2024-11-26 11:03:00.000 70 mm [Hg] Diastolic Blood Pressure 2024-11-23 10:27:00.000 63 mm [Hg] Diastolic Blood Pressure 2024-11-22 14:02:00.000 78 mm [Hg] Diastolic Blood Pressure 2024-11-17 11:40:00.000 61 mm [Hg] Diastolic Blood Pressure 2024-11-16 11:25:00.000 74 mm [Hg] Diastolic Blood Pressure 2024-11-15 08:57:00.000 78 mm [Hg] Diastolic Blood Pressure 2024-11-12 09:05:00.000 70 mm [Hg] Diastolic Blood Pressure 2024-11-11 09:57:00.000 70 mm [Hg] Diastolic Blood Pressure 2024-11-07 11:42:00.000 52 mm [Hg] Plan of Treatment Planned Activity Planned Date Details Comments Future Scheduled Test SKILLED NU RSE TO EVALUATE PATIENT, IDENTIFY PRIMARY AND CO-MORBID CONDITIONS CODED PER CODING GUIDELINES, AND DEVELOP PATIENT SPECIFIC PLAN OF CARE THAT INCLUDES PATIENT GOAL FOR HOME HEALTH. [code = SKILLED NURSE TO EVALUATE PATIENT, IDENTIFY PRIMARY AND CO-MORBID CONDITIONS CODED PER CODING GUIDELINES, AND DEVELOP PATIENT SPECIFIC PLAN OF CARE THAT INCLUDES PATIENT GOAL FOR HOME HEALTH.] Future Scheduled Test SKILLED NU RSE TO REVIEW PATIENT MEDICATIONS. INSTRUCT PATIENT/CAREGIVER ON MONITORING OF EFFECTIVENESS, ADVERSE DRUG REACTIONS, SIDE EFFECTS OF ALL MEDICATIONS (PRESCRIPTION/-OTC), AND HOW AND WHEN TO REPORT PROBLEMS. [code = SKILLED NURSE TO REVIEW PATIENT MEDICATIONS. INSTRUCT PATIENT/CAREGIVER ON MONITORING OF EFFECTIVENESS, ADVERSE DRUG REACTIONS, SIDE EFFECTS OF ALL MEDICATIONS (PRESCRIPTION/-OTC), AND HOW AND WHEN TO REPORT PROBLEMS. ] Future Scheduled Test SKILLED NU RSE TO ASSESS ANXIETY AND PROVIDE ASSISTANCE TO PATIENT FOR UNDERSTANDING AND MANAGEMENT OF FEELINGS. [code = SKILLED NURSE TO ASSESS ANXIETY AND PROVIDE ASSISTANCE TO PATIENT FOR UNDERSTANDING AND MANAGEMENT OF FEELINGS.] Future Scheduled Test OXYGEN VIA NASAL CANNULA 2 L Q HS SKILLED NURSE FOR O/A AND SKILLED TEACHING OF SAFE OXYGEN USE IN THE HOME. [code = OXYGEN VIA NASAL CANNULA 2 L Q HS SKILLED NURSE FOR O/A AND SKILLED TEACHING OF SAFE OXYGEN USE IN THE HOME.] Future Scheduled Test SKILLED NU RSE FOR O/A, TEACHING RELATED TO STATUS POST GASTRIC SLEEVE OR EARLY IDENTIFICATION OF EXACERBATION OF DISEASE PROCESS. [code = SKILLED NURSE FOR O/A, TEACHING RELATED TO STATUS POST GASTRIC SLEEVE OR EARLY IDENTIFICATION OF EXACERBATION OF DISEASE PROCESS.] Future Scheduled Test SKILLED NU RSE FOR O/A, TEACHING AND MANAGEMENT OF CKD FOR EARLY IDENTIFICATION OF EXACERBATION OF DISEASE PROCESS [code = SKILLED NURSE FOR O/A, TEACHING AND MANAGEMENT OF CKD FOR EARLY IDENTIFICATION OF EXACERBATION OF DISEASE PROCESS] Future Scheduled Test OCCUPATION AL THERAPIST TO EVALUATE PATIENT FOR ADLS [code = OCCUPATIONAL THERAPIST TO EVALUATE PATIENT FOR ADLS ] Future Scheduled Test SKILLED NU RSE FOR O/A OF RESPIRATORY SYSTEM TO IDENTIFY CHANGES ASSOCIATED WITH EXACERBATION AND TO PROVIDE SKILLED TEACHING ON MANAGEMENT OF MYCOPLASMA PNA DISEASE PROCESS. [code = SKILLED NURSE FOR O/A OF RESPIRATORY SYSTEM TO IDENTIFY CHANGES ASSOCIATED WITH EXACERBATION AND TO PROVIDE SKILLED TEACHING ON MANAGEMENT OF MYCOPLASMA PNA DISEASE PROCESS.] Future Scheduled Test SKILLED NU RSE FOR TEACHING ON ADMINSTRATION OF INHALATION THERAPY AND CARE OF EQUIPMENT [code = SKILLED NURSE FOR TEACHING ON ADMINSTRATION OF INHALATION THERAPY AND CARE OF EQUIPMENT] Future Scheduled Test SKILLED NU RSE FOR O/A AND SKILLED TEACHING RELATED TO SIGNS AND SYMPTOMS OF INFECTION AND INFECTION CONTROL MEASURES. [code = SKILLED NURSE FOR O/A AND SKILLED TEACHING RELATED TO SIGNS AND SYMPTOMS OF INFECTION AND INFECTION CONTROL MEASURES.] Future Scheduled Test PHYSICAL T HERAPIST TO EVALUATE PATIENT FOR GAIT [code = PHYSICAL THERAPIST TO EVALUATE PATIENT FOR GAIT] Future Scheduled Test SKILLED NU RSE TO INSTRUCT PATIENT/CAREGIVER ON SIGNS AND SYMPTOMS, RISK FACTORS, COMPLICATIONS, AND MANAGEMENT OF ATRIAL FIBRILLATION. [code = SKILLED NURSE TO INSTRUCT PATIENT/CAREGIVER ON SIGNS AND SYMPTOMS, RISK FACTORS, COMPLICATIONS, AND MANAGEMENT OF ATRIAL FIBRILLATION.] Future Scheduled Test SKILLED NU RSE TO PROVIDE TEACHING ON SIGNS AND SYMPTOMS AND MANAGEMENT OF HYPERTENSION. [code = SKILLED NURSE TO PROVIDE TEACHING ON SIGNS AND SYMPTOMS AND MANAGEMENT OF HYPERTENSION.] Future Scheduled Test SKILLED NU RSE FOR O/A AND SKILLED TEACHING RELATED TO ALTERED SKIN INTEGRITY FUNGAL RASH GROIN FOLDS [code = SKILLED NURSE FOR O/A AND SKILLED TEACHING RELATED TO ALTERED SKIN INTEGRITY FUNGAL RASH GROIN FOLDS] Future Scheduled Test SKILLED NU RSE TO INSTRUCT PATIENT/CAREGIVER ON COPD TO INCLUDE TEACHING AND SELF-MANAGEMENT RELATED TO COPD DISEASE PROCESS, SIGNS AND SYMPTOMS, AND COMPLICATIONS. [code = SKILLED NURSE TO INSTRUCT PATIENT/CAREGIVER ON COPD TO INCLUDE TEACHING AND SELF-MANAGEMENT RELATED TO COPD DISEASE PROCESS, SIGNS AND SYMPTOMS, AND COMPLICATIONS.] Future Scheduled Test SKILLED NU RSE FOR O/A, TEACHING AND SELF-MANAGEMENT RELATED TO HEART FAILURE. INSTRUCT PATIENT/CAREGIVER ON SIGNS AND SYMPTOMS OF EXACERBATION TO REPORT AND IMPORTANCE OF OBTAINING AND RECORDING DAILY WEIGHT AND/OR MEASUREMENTS. SN OR TRAINED PATIENT/CAREGIVER TO OBTAIN WEIGHT DAILY AND WEIGHT GAIN OF 2 LBS OVERNIGHT OR 5 LBS IN 1 WEEK TO BE REPORTED TO PHYSICIAN/PROVIDER. IF UNABLE TO WEIGH PATIENT, SN OR TRAINED PATIENT/CAREGIVER TO OBTAIN MEASUREMENT OF LE IN CM DAILY AND REPORT AN INCREASE OF 1 CM TO PHYSICIAN/PROVIDER. [code = SKILLED NURSE FOR O/A, TEACHING AND SELF-MANAGEMENT RELATED TO HEART FAILURE. INSTRUCT PATIENT/CAREGIVER ON SIGNS AND SYMPTOMS OF EXACERBATION TO REPORT AND IMPORTANCE OF OBTAINING AND RECORDING DAILY WEIGHT AND/OR MEASUREMENTS. SN OR TRAINED PATIENT/CAREGIVER TO OBTAIN WEIGHT DAILY AND WEIGHT GAIN OF 2 LBS OVERNIGHT OR 5 LBS IN 1 WEEK TO BE REPORTED TO PHYSICIAN/PROVIDER. IF UNABLE TO WEIGH PATIENT, SN OR TRAINED PATIENT/CAREGIVER TO OBTAIN MEASUREMENT OF LE IN CM DAILY AND REPORT AN INCREASE OF 1 CM TO PHYSICIAN/PROVIDER.] Future Scheduled Test SKILLED NU RSE TO INSTRUCT PATIENT/CAREGIVER ON WARNING SIGNS OF CVA, RISK FACTORS, AND METHODS TO MANAGE CUSTODIAL EFFECTS OF CVA. [code = SKILLED NURSE TO INSTRUCT PATIENT/CAREGIVER ON WARNING SIGNS OF CVA, RISK FACTORS, AND METHODS TO MANAGE CUSTODIAL EFFECTS OF CVA.] Future Scheduled Test SKILLED NU RSE FOR O/A AND TEACHING OF DIABETIC MANAGEMENT INCLUDING BLOOD SUGAR MONITORING/USE OF GLUCOMETER, DIABETIC DIET, LOWER EXTREMITY SKIN INSPECTION, PROPER SKIN/FOOT CARE, AND SIGNS AND SYMPTOMS HYPO/HYPERGLYCEMIA TO REPORT. [code = SKILLED NURSE FOR O/A AND TEACHING OF DIABETIC MANAGEMENT INCLUDING BLOOD SUGAR MONITORING/USE OF GLUCOMETER, DIABETIC DIET, LOWER EXTREMITY SKIN INSPECTION, PROPER SKIN/FOOT CARE, AND SIGNS AND SYMPTOMS HYPO/HYPERGLYCEMIA TO REPORT.] Future Scheduled Test SKILLED NU RSE FOR O/A AND SKILLED TEACHING RELATED TO SIGNS AND SYMPTOMS AND MANAGEMENT OF LOW BACK AND BLE PAIN, GOUT. [code = SKILLED NURSE FOR O/A AND SKILLED TEACHING RELATED TO SIGNS AND SYMPTOMS AND MANAGEMENT OF LOW BACK AND BLE PAIN, GOUT.] Future Scheduled Test PATIENT GRADY S A RISK OF HOSPITALIZATION AND ED USE. SKILLED NURSE TO ESTABLISH SUPPORT MEASURES TO MINIMIZE RISK OF HOSPITALIZATION AND ED USE, AND INSTRUCT PATIENT/CAREGIVER ON METHODS TO REDUCE AVOIDABLE HOSPITALIZATION AND ED USE. [code = PATIENT HAS A RISK OF HOSPITALIZATION AND ED USE. SKILLED NURSE TO ESTABLISH SUPPORT MEASURES TO MINIMIZE RISK OF HOSPITALIZATION AND ED USE, AND INSTRUCT PATIENT/CAREGIVER ON METHODS TO REDUCE AVOIDABLE HOSPITALIZATION AND ED USE.] Future Scheduled Test SKILLED NU RSE TO PROVIDE INSTRUCTION TO PATIENT/CAREGIVER RELATED TO DISCHARGE PLANNING. [code = SKILLED NURSE TO PROVIDE INSTRUCTION TO PATIENT/CAREGIVER RELATED TO DISCHARGE PLANNING.] Future Scheduled Test SKILLED NU RSE TO PERFORM ENVIRONMENTAL SAFETY RISK ASSESSMENT AND FALL RISK ASSESSMENT AND PROVIDE INSTRUCTION TO IMPLEMENT ENVIRONMENTAL SAFETY AND FALL PREVENTION STRATEGIES THROUGHOUT THE CERTIFICATION PERIOD. SKILLED NURSE WILL MAINTAIN SITUATIONAL AWARENESS AND WILL NOTIFY CLINICAL MEDICAL OFFICE CLERK AND PHYSICIAN/PROVIDER WITH ANY CHANGE IN CONDITION. [code = SKILLED NURSE TO PERFORM ENVIRONMENTAL SAFETY RISK ASSESSMENT AND FALL RISK ASSESSMENT AND PROVIDE INSTRUCTION TO IMPLEMENT ENVIRONMENTAL SAFETY AND FALL PREVENTION STRATEGIES THROUGHOUT THE CERTIFICATION PERIOD. SKILLED NURSE WILL MAINTAIN SITUATIONAL AWARENESS AND WILL NOTIFY CLINICAL MEDICAL OFFICE CLERK AND PHYSICIAN/PROVIDER WITH ANY CHANGE IN CONDITION.] Future Scheduled Test SKILLED NU RSE FOR OBSERVATION AND ASSESSMENT OF PATIENTS PAIN LEVEL AND EFFECTIVENESS OF PAIN MANAGEMENT REGIMEN. SKILLED NURSE TO INSTRUCT PATIENT/CAREGIVER REGARDING PHARMACOLOGIC AND NON-PHARMACOLOGIC PAIN CONTROL MEASURES. SKILLED NURSE TO REPORT TO PHYSICIAN IF PAIN IS UNCONTROLLED WITH CURRENT PAIN MANAGEMENT REGIMEN. [code = SKILLED NURSE FOR OBSERVATION AND ASSESSMENT OF PATIENTS PAIN LEVEL AND EFFECTIVENESS OF PAIN MANAGEMENT REGIMEN. SKILLED NURSE TO INSTRUCT PATIENT/CAREGIVER REGARDING PHARMACOLOGIC AND NON-PHARMACOLOGIC PAIN CONTROL MEASURES. SKILLED NURSE TO REPORT TO PHYSICIAN IF PAIN IS UNCONTROLLED WITH CURRENT PAIN MANAGEMENT REGIMEN.] Future Scheduled Test SKILLED NU RSE TO ASSESS PATIENT'S SKIN INTEGRITY AND INSTRUCT PATIENT/CAREGIVER ON MEASURES TO PREVENT PRESSURE ULCERS. [code = SKILLED NURSE TO ASSESS PATIENT'S SKIN INTEGRITY AND INSTRUCT PATIENT/CAREGIVER ON MEASURES TO PREVENT PRESSURE ULCERS.] Future Scheduled Test SKILLED NU RSE TO PROVIDE ASSESSMENT AND TEACHING/REINFORCEMENT OF MANAGEMENT OF DEPRESSION INCLUDING DISEASE PROCESS, MEDICATION MANAGEMENT, COPING SKILLS AND IDENTIFY CHANGES ASSOCIATED WITH DEPRESSIVE DISORDERS FOR EARLY INTERVENTION. [code = SKILLED NURSE TO PROVIDE ASSESSMENT AND TEACHING/REINFORCEMENT OF MANAGEMENT OF DEPRESSION INCLUDING DISEASE PROCESS, MEDICATION MANAGEMENT, COPING SKILLS AND IDENTIFY CHANGES ASSOCIATED WITH DEPRESSIVE DISORDERS FOR EARLY INTERVENTION.] Future Scheduled Test PHYSICAL T HERAPIST TO EVALUATE PATIENT SECONDARY TO FUNCTIONAL DEFICITS/SAFETY CONCERNS. PHYSICAL THERAPY TO ESTABLISH /UPGRADE/DOWNGRADE THERAPEUTIC EXERCISE PROGRAM AND INSTRUCT PATIENT/CAREGIVER ON EXERCISE PRECAUTIONS WITH WRITTEN HOME PROGRAM. MAY INCLUDE PROM, AAROM, AROM, RROM APPROPRIATE TO IMPROVE FUNCTIONAL STRENGTH AND RANGE OF MOTION. PHYSICAL THERAPY TO INSTRUCT PATIENT/CAREGIVER ON BED MOBILITY TECHNIQUES TO IMPROVE PATIENT MOBILITY AND POSITIONING TECHNIQUES IN ORDER TO INCREASE PATIENTS COMFORT AND DECREASE RISK OF SKIN BREAKDOWN. PHYSICAL THERAPY TO INSTRUCT PATIENT/CAREGIVER ON SAFE TRANSFER TECHNIQUES USING PROPER BODY MECHANICS AND EQUIPMENT. PHYSICAL THERAPY TO INSTRUCT PATIENT/CAREGIVER ON GAIT TRAINING TECHNIQUES USING APPROPRIATE ASSISTIVE DEVICE, PROPER BODY MECHANICS TO IMPROVE MOBILITY, AND PREVENT INJURY OF PATIENT AND/OR CAREGIVER. PHYSICAL THERAPY TO ASSESS AND RECOMMEND HOME SAFETY ADAPTATIONS AND EDUCATE PATIENT /CAREGIVER ON FALL PREVENTION STRATEGIES. PHYSICAL THERAPY TO PROVIDE INSTRUCTION IN SAFE FUNCTIONAL WHEELCHAIR MOBILITY AND PROVIDE RECOMMENDATIONS AND TRAINING FOR PROPER WHEELCHAIR FIT. PHYSICAL THERAPY FOR OBSERVATION AND ASSESSMENT OF PAIN, EFFECTIVENESS OF PAIN MANAGEMENT REGIMEN AND SKILLED TEACHING RELATED TO PAIN MANAGEMENT. THERAPIST TO REPORT INCREASED PAIN LEVEL TO PHYSICIAN FOR PROMPT INTERVENTION. 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 PLOF: PATIENT LIVES WITH SPOUSE IN SINGLE FAMILY HOME WITH RAMP ACCESS. HE IS TYPICALLY MOD I FOR HOUSEHOLD LEVEL AMBULATION WITH ROLLATOR USE, MANUAL WHEELCHAIR USE FOR COMMUNITY DISTANCE MOBILITY. HE REQUIRES INTERMITTENT ASSISTANCE FOR ADLS/IADLS AT BASELINE FROM SPOUSE. PATIENT HAS HAD 3 FALLS IN THE LAST YEAR AND REPORTS BEING NOTABLY FEARFUL OF FALLING. PATIENT'S PRIMARY GOAL WITH HOME PT SERVICES TO IMPROVE LOWER EXTREMITY STRENGTH AND STAMINA AND TO IMPROVE HIS ABILITY TO AMBULATE IN HIS HOME. PATIENT IS CURRENTLY FUNCTIONING BELOW HIS BASELINE LEVEL OF MOBILITY HE REQUIRES CGA X1 FOR TRANSFERS AND LEVEL SURFACE AMBULATION WITH ROLLATOR USE TODAY, HE DEMONSTRATES IMPAIRED DYNAMIC STANDING BALANCE, LOWER EXTREMITY STRENGTH, IMPAIRED ABILITY TO INDEPENDENTLY AMBULATE HOUSEHOLD DISTANCES EVIDENCED BY CATEGORIZATION IS HIGH FALLS RISK AND POTENTIAL REHOSPITALIZATION RISK ON OUTCOME MEASURES INCLUDING TINETTI, TUG, AND 30 SECONDS [id number]. WILL PLAN FOR WEEKLY PT VISITS IN ORDER TO IMPLEMENT PT PLAN OF CARE TO ALLOW PATIENT TO SAFELY ACCESS AND NAVIGATE HIS HOME ENVIRONMENT. VERBAL ORDER RECEIVED FROM MEREDITH AT OFFICE FOR PT PLAN OF CARE [code = PHYSICAL THERAPIST TO EVALUATE PATIENT SECONDARY TO FUNCTIONAL DEFICITS/SAFETY CONCERNS. PHYSICAL THERAPY TO ESTABLISH /UPGRADE/DOWNGRADE THERAPEUTIC EXERCISE PROGRAM AND INSTRUCT PATIENT/CAREGIVER ON EXERCISE PRECAUTIONS WITH WRITTEN HOME PROGRAM. MAY INCLUDE PROM, AAROM, AROM, RROM APPROPRIATE TO IMPROVE FUNCTIONAL STRENGTH AND RANGE OF MOTION. PHYSICAL THERAPY TO INSTRUCT PATIENT/CAREGIVER ON BED MOBILITY TECHNIQUES TO IMPROVE PATIENT MOBILITY AND POSITIONING TECHNIQUES IN ORDER TO INCREASE PATIENTS COMFORT AND DECREASE RISK OF SKIN BREAKDOWN. PHYSICAL THERAPY TO INSTRUCT PATIENT/CAREGIVER ON SAFE TRANSFER TECHNIQUES USING PROPER BODY MECHANICS AND EQUIPMENT. PHYSICAL THERAPY TO INSTRUCT PATIENT/CAREGIVER ON GAIT TRAINING TECHNIQUES USING APPROPRIATE ASSISTIVE DEVICE, PROPER BODY MECHANICS TO IMPROVE MOBILITY, AND PREVENT INJURY OF PATIENT AND/OR CAREGIVER. PHYSICAL THERAPY TO ASSESS AND RECOMMEND HOME SAFETY ADAPTATIONS AND EDUCATE PATIENT /CAREGIVER ON FALL PREVENTION STRATEGIES. PHYSICAL THERAPY TO PROVIDE INSTRUCTION IN SAFE FUNCTIONAL WHEELCHAIR MOBILITY AND PROVIDE RECOMMENDATIONS AND TRAINING FOR PROPER WHEELCHAIR FIT. PHYSICAL THERAPY FOR OBSERVATION AND ASSESSMENT OF PAIN, EFFECTIVENESS OF PAIN MANAGEMENT REGIMEN AND SKILLED TEACHING RELATED TO PAIN MANAGEMENT. THERAPIST TO REPORT INCREASED PAIN LEVEL TO PHYSICIAN FOR PROMPT INTERVENTION. 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 PLOF: PATIENT LIVES WITH SPOUSE IN SINGLE FAMILY HOME WITH RAMP ACCESS. HE IS TYPICALLY MOD I FOR HOUSEHOLD LEVEL AMBULATION WITH ROLLATOR USE, MANUAL WHEELCHAIR USE FOR COMMUNITY DISTANCE MOBILITY. HE REQUIRES INTERMITTENT ASSISTANCE FOR ADLS/IADLS AT BASELINE FROM SPOUSE. PATIENT HAS HAD 3 FALLS IN THE LAST YEAR AND REPORTS BEING NOTABLY FEARFUL OF FALLING. PATIENT'S PRIMARY GOAL WITH HOME PT SERVICES TO IMPROVE LOWER EXTREMITY STRENGTH AND STAMINA AND TO IMPROVE HIS ABILITY TO AMBULATE IN HIS HOME. PATIENT IS CURRENTLY FUNCTIONING BELOW HIS BASELINE LEVEL OF MOBILITY HE REQUIRES CGA X1 FOR TRANSFERS AND LEVEL SURFACE AMBULATION WITH ROLLATOR USE TODAY, HE DEMONSTRATES IMPAIRED DYNAMIC STANDING BALANCE, LOWER EXTREMITY STRENGTH, IMPAIRED ABILITY TO INDEPENDENTLY AMBULATE HOUSEHOLD DISTANCES EVIDENCED BY CATEGORIZATION IS HIGH FALLS RISK AND POTENTIAL REHOSPITALIZATION RISK ON OUTCOME MEASURES INCLUDING TINETTI, TUG, AND 30 SECONDS [id number]. WILL PLAN FOR WEEKLY PT VISITS IN ORDER TO IMPLEMENT PT PLAN OF CARE TO ALLOW PATIENT TO SAFELY ACCESS AND NAVIGATE HIS HOME ENVIRONMENT. VERBAL ORDER RECEIVED FROM MEREDITH AT OFFICE FOR PT PLAN OF CARE] Future Scheduled Test OCCUPATION AL THERAPIST TO EVALUATE PATIENT SECONDARY TO FUNCTIONAL DEFICITS/SAFETY CONCERNS IDENTIFIED DURING EVALUATION OCCUPATIONAL THERAPY TO ESTABLISH /UPGRADE/DOWNGRADE THERAPEUTIC EXERCISE PROGRAM AND INSTRUCT PATIENT/CAREGIVER ON EXERCISE PRECAUTIONS WITH WRITTEN HOME PROGRAM. MAY INCLUDE PROM, AAROM, AROM, RROM APPROPRIATE TO IMPROVE FUNCTIONAL STRENGTH AND/OR RANGE OF MOTION. OCCUPATIONAL THERAPY TO INSTRUCT PATIENT/CAREGIVER ON SAFE TRANSFER TECHNIQUES USING PROPER BODY MECHANICS AND EQUIPMENT TO ENHANCE PARTICIPATION IN ADLS. OCCUPATIONAL THERAPY TO ASSESS AND RECOMMEND HOME SAFETY ADAPTATIONS AND EDUCATE PATIENT /CAREGIVER ON FALL PREVENTION STRATEGIES TO ENHANCE PARTICIPATION IN ADLS. OCCUPATIONAL THERAPY TO PROVIDE PATIENT/CAREGIVER WITH INSTRUCTIONS AND RECOMMENDATIONS TO IMPROVE ADLS WHILE USING APPROPRIATE ADAPTIVE DEVICES RECOMMENDED. OCCUPATIONAL THERAPY TO PROVIDE PATIENT/CAREGIVER WITH INSTRUCTIONS AND RECOMMENDATIONS TO IMPROVE IADLS WHILE USING APPROPRIATE ADAPTIVE DEVICES RECOMMENDED. SUMMARY OF THERAPY EVAL/ASSESSMENT FINDINGS AND REASON(S) SKILLS OF A THERAPIST ARE INDICATED: OT EVAL COMPLETED 11-11-2024 PRESENT AND SUPPORTIVE. 74 YEAR OLD MALE PATIENT REFERRED TO SKILLED OT FOR EVAL S/P HOSP STAY DUE TO PNEUMONA. PATIENT WAS TRANSFERRED TO [facility] PRIOR TO RETURN HOME. PMHX: FALL HISTORY, KIDNEY DISEASE WITH MASS REMOVAL, O2 2 LITERS NEEDED. PLOF: PATIENT LIVES IN SINGLE FAMILY HOME WITH SUPPORTIVE AND 2 DOGS. PRIOR TO HOSP, PATIENT REPORTS HE WAS PERFORMING FUNCTIONAL MOB WITH WALKER IN HOME AT MOD I, MIN ASSIST WITH DRESSING AND SPONGE BATHING, TOILETING. PATIENT REPORTS HE WAS ABLE TO HELP WITH SMALL TASKS IN KITCHEN . MANAGES HOME MGT AND MEAL PREP. PATIENT STATES HE IS NOT NTERESTED IN SHOWER LEVEL BATHING DESPITE HANDICAPPED ACCESSIBILITY OF SHOWER. DME IN PLACE: WALKER, O2 , SHOWR SEAT, HH SHOWER HOSE, GRABBARS, ELEVATED TOILET SEAT, URINAL, TRANSPORT CHAIR, RAMP FOR HOME ACCESS. UE AROM WFL UE MMT 3/5 DUE TO DECREASED FUNCTIONAL STRENGTH AND ADL MGT, PATIENT WILL BENEFIT FROM SKILLED OT TO REGAIN PLOF. OT TO PROVIDE ADL MGT TRG, UE THER EX, ENERGY CONSERVATION AND WORK SIMP TRG, FUNCTIONAL MOB AND TRANSFER TRG, . OT TO SEE PATIENT 2WK4 THEN REASSESS FOR DC OR CONTINUE. DC PLANNING INITIATED. COOR OF CARE WITH RALPHARA TEAM AND PCP. PATIENT REMAINS HOMEBOUND DUE TO TAXING EFFORT TO LEAVE HOME AND ASSIST OF ANOTHER PERSON DUE TO WEAKNESS. [code = OCCUPATIONAL THERAPIST TO EVALUATE PATIENT SECONDARY TO FUNCTIONAL DEFICITS/SAFETY CONCERNS IDENTIFIED DURING EVALUATION OCCUPATIONAL THERAPY TO ESTABLISH /UPGRADE/DOWNGRADE THERAPEUTIC EXERCISE PROGRAM AND INSTRUCT PATIENT/CAREGIVER ON EXERCISE PRECAUTIONS WITH WRITTEN HOME PROGRAM. MAY INCLUDE PROM, AAROM, AROM, RROM APPROPRIATE TO IMPROVE FUNCTIONAL STRENGTH AND/OR RANGE OF MOTION. OCCUPATIONAL THERAPY TO INSTRUCT PATIENT/CAREGIVER ON SAFE TRANSFER TECHNIQUES USING PROPER BODY MECHANICS AND EQUIPMENT TO ENHANCE PARTICIPATION IN ADLS. OCCUPATIONAL THERAPY TO ASSESS AND RECOMMEND HOME SAFETY ADAPTATIONS AND EDUCATE PATIENT /CAREGIVER ON FALL PREVENTION STRATEGIES TO ENHANCE PARTICIPATION IN ADLS. OCCUPATIONAL THERAPY TO PROVIDE PATIENT/CAREGIVER WITH INSTRUCTIONS AND RECOMMENDATIONS TO IMPROVE ADLS WHILE USING APPROPRIATE ADAPTIVE DEVICES RECOMMENDED. OCCUPATIONAL THERAPY TO PROVIDE PATIENT/CAREGIVER WITH INSTRUCTIONS AND RECOMMENDATIONS TO IMPROVE IADLS WHILE USING APPROPRIATE ADAPTIVE DEVICES RECOMMENDED. SUMMARY OF THERAPY EVAL/ASSESSMENT FINDINGS AND REASON(S) SKILLS OF A THERAPIST ARE INDICATED: OT EVAL COMPLETED 11-11-2024 PRESENT AND SUPPORTIVE. 74 YEAR OLD MALE PATIENT REFERRED TO SKILLED OT FOR EVAL S/P HOSP STAY DUE TO PNEUMONA. PATIENT WAS TRANSFERRED TO [facility] PRIOR TO RETURN HOME. PMHX: FALL HISTORY, KIDNEY DISEASE WITH MASS REMOVAL, O2 2 LITERS NEEDED. PLOF: PATIENT LIVES IN SINGLE FAMILY HOME WITH SUPPORTIVE AND 2 DOGS. PRIOR TO HOSP, PATIENT REPORTS HE WAS PERFORMING FUNCTIONAL MOB WITH WALKER IN HOME AT MOD I, MIN ASSIST WITH DRESSING AND SPONGE BATHING, TOILETING. PATIENT REPORTS HE WAS ABLE TO HELP WITH SMALL TASKS IN KITCHEN . MANAGES HOME MGT AND MEAL PREP. PATIENT STATES HE IS NOT NTERESTED IN SHOWER LEVEL BATHING DESPITE HANDICAPPED ACCESSIBILITY OF SHOWER. DME IN PLACE: WALKER, O2 , SHOWR SEAT, HH SHOWER HOSE, GRABBARS, ELEVATED TOILET SEAT, URINAL, TRANSPORT CHAIR, RAMP FOR HOME ACCESS. UE AROM WFL UE MMT 3/5 DUE TO DECREASED FUNCTIONAL STRENGTH AND ADL MGT, PATIENT WILL BENEFIT FROM SKILLED OT TO REGAIN PLOF. OT TO PROVIDE ADL MGT TRG, UE THER EX, ENERGY CONSERVATION AND WORK SIMP TRG, FUNCTIONAL MOB AND TRANSFER TRG, . OT TO SEE PATIENT 2WK4 THEN REASSESS FOR DC OR CONTINUE. DC PLANNING INITIATED. COOR OF CARE WITH ELARA TEAM AND PCP. PATIENT REMAINS HOMEBOUND DUE TO TAXING EFFORT TO LEAVE HOME AND ASSIST OF ANOTHER PERSON DUE TO WEAKNESS. ] Goal Patient Goal - AMBULATE MORE Goal Provider Goal - A PLAN OF CARE WILL BE ESTABLISHED THAT MEETS PATIENT'S [facility] NEEDS AND INCLUDES PATIENT GOAL FOR HOME HEALTH. Goal Provider Goal - PATIENT/CAREGIVER WILL VERBALIZE UNDERSTANDING OF EDUCATION PROVIDED ON MEDICATIONS BY THE END OF THE CERTIFICATION PERIOD. Goal Provider Goal - SYMPTOMS OF ANXIETY ARE IDENTIFIED AND INTERVENTIONS INITIATED TO ENABLE PATIENT TO UNDERSTAND AND MANAGE FEELINGS THROUGHOUT EPISODE. Goal Provider Goal - PATIENT/CAREGIVER WILL VERBALIZE/DEMONSTRATE UNDERSTANDING OF SAFE OXYGEN USE IN THE HOME THROUGHOUT THE EPISODE. Goal Provider Goal - EXACERBATIONS OF GASTROINTESTINAL DISEASE WILL BE PROMPTLY IDENTIFIED AND INTERVENTIONS IMPLEMENTED TO MINIMIZE RISKS TO PATIENT BY END OF EPISODE. Goal Provider Goal - PATIENT/CAREGIVER WILL VERBALIZE UNDERSTANDING OF GENITOURINARY DISEASE PROCESS, AND EXACERBATIONS OF GENITOURINARY DISEASE WILL BE PROMPTLY IDENTIFIED FOR EARLY INTERVENTION THROUGHOUT THE CERTIFICATION PERIOD. Goal Provider Goal - OCCUPATIONAL THERAPY EVALUATION TO BE COMPLETED WITH RECOMMENDATIONS AND WRITTEN PLAN OF TREATMENT ESTABLISHED FOR THE PHYSICIANS SIGNATURE. Goal Provider Goal - PATIENT/CAREGIVER WILL VERBALIZE/DEMONSTRATE MANAGEMENT OF PNA DISEASE PROCESS. CHANGES IN RESPIRATORY STATUS WILL BE IDENTIFIED AND REPORTED TO PHYSICIAN FOR PROMPT INTERVENTION THROUGHOUT THE CERTIFICATION PERIOD. Goal Provider Goal - PATIENT/CAREGIVER WILL VERBALIZE/DEMONSTRATE INDEPENDENCE WITH ADMINISTRATION OF ORDERED INHALATION THERAPY AND CARE OF EQUIPMENT A RESULT OF SKILLED TEACHING THROUGHOUT THE EPISODE. Goal Provider Goal - PATIENT/CAREGIVER WILL VERBALIZE/DEMONSTRATE UNDERSTANDING OF S/S OF INFECTION AND INFECTION CONTROL MEASURES. SIGNS AND SYMPTOMS OF INFECTION WILL BE IDENTIFIED AND PHYSICIAN NOTIFIED FOR PROMPT INTERVENTION THROUGHOUT THE CERTIFICATION PERIOD. Goal Provider Goal - A PHYSICAL THERAPY EVALUATION TO BE COMPLETED WITH RECOMMENDATIONS AND/OR WRITTEN PLAN OF TREATMENT ESTABLISHED FOR PHYSICIANS SIGNATURE. Goal Provider Goal - PATIENT/CAREGIVER WILL VERBALIZE UNDERSTANDING OF SIGNS AND SYMPTOMS, COMPLICATIONS, AND MANAGEMENT OF ATRIAL FIBRILLATION THROUGHOUT THE CERTIFICATION PERIOD. Goal Provider Goal - PATIENT/CAREGIVER WILL VERBALIZE SIGNS AND SYMPTOMS OF HYPERTENSION AND WILL BE ABLE TO DEMONSTRATE ABILITY TO MANAGE EXACERBATION BY END OF THE EPISODE. Goal Provider Goal - PATIENT/CAREGIVER WILL VERBALIZE/DEMONSTRATE UNDERSTANDING OF TEACHING RELATED TO ALTERED SKIN INTEGRITY BY END OF CERTIFICATION PERIOD. Goal Provider Goal - PATIENT/CAREGIVER WILL VERBALIZE/DEMONSTRATE KNOWLEDGE AND MANAGEMENT OF COPD BY END OF EPISODE. Goal Provider Goal - PATIENT/CAREGIVER WILL VERBALIZE/DEMONSTRATE KNOWLEDGE AND MANAGEMENT OF HEART FAILURE DISEASE PROCESS BY END OF EPISODE. Goal Provider Goal - PATIENT/CAREGIVER WILL DEMONSTRATE COMPLIANCE WITH TREATMENT REGIME AND VERBALIZE SIGNS AND SYMPTOMS TO REPORT WELL POSSIBLE COMPLICATIONS OF CVA BY END OF EPISODE. Goal Provider Goal - PATIENT/CAREGIVER WILL VERBALIZE/DEMONSTRATE KNOWLEDGE OF DIABETIC MANAGEMENT. CHANGES IN DIABETIC STATUS WILL BE IDENTIFIED AND REPORTED TO PHYSICIAN FOR PROMPT INTERVENTION THROUGHOUT THE CERTIFICATION PERIOD. Goal Provider Goal - PATIENT/CAREGIVER WILL VERBALIZE UNDERSTANDING OF MUSCULOSKELETAL DISEASE INCLUDING SIGNS AND SYMPTOMS, MANAGEMENT, AND PRESCRIBED TREATMENT REGIMEN BY END OF EPISODE. Goal Provider Goal - PATIENT WILL HAVE SUPPORT MEASURES ESTABLISHED TO PREVENT HOSPITALIZATION AND ED USE AND PATIENT/CAREGIVER WILL VERBALIZE/DEMONSTRATE METHODS TO REDUCE AVOIDABLE HOSPITALIZATION AND ED USE BY END OF EPISODE. Goal Provider Goal - PATIENT/CAREGIVER WILL VERBALIZE UNDERSTANDING OF DISCHARGE PLANNING INSTRUCTIONS BY DATE OF DISCHARGE. Goal Provider Goal - PATIENT/CAREGIVER WILL VERBALIZE/DEMONSTRATE EFFECTIVE ENVIRONMENTAL SAFETY AND FALL PREVENTION STRATEGIES, WILL REMAIN SAFE IN THE COMMUNITY, AND WILL BE FREE OF DANGER TO SELF AND OTHERS THROUGHOUT THE CERTIFICATION PERIOD. Goal Provider Goal - PATIENT/CAREGIVER WILL DEMONSTRATE UNDERSTANDING OF PHARMACOLOGIC AND NONPHARMACOLOGIC PAIN CONTROL MEASURES AND PATIENT WILL HAVE IMPROVEMENT IN PAIN INTERFERING WITH ACTIVITY EVIDENCED BY PAIN CONTROLLED AT LEVEL OF 7 OR LESS BY END OF CERTIFICATION PERIOD. Goal Provider Goal - PATIENT/CAREGIVER WILL VERBALIZE UNDERSTANDING OF PRESSURE ULCER PREVENTION BY END OF THE EPISODE. Goal Provider Goal - PATIENT/CAREGIVER WILL VERBALIZE/DEMONSTRATE UNDERSTANDING OF THE MANAGEMENT OF DEPRESSION THROUGHOUT THE CERTIFICATION PERIOD AND SYMPTOMS ARE IDENTIFIED AND MANAGED TO MAINTAIN PATIENT SAFETY IN THE HOME. Goal Provider Goal - PHYSICAL THERAPY EVALUATION TO BE COMPLETED WITH RECOMMENDATIONS AND/OR WRITTEN TREATMENT PLAN OF CARE ESTABLISHED FOR THE PHYSICIANS SIGNATURE PATIENT/CAREGIVER WILL PERFORM THERAPEUTIC EXERCISE/S AND DEMONSTRATE PARTICIPATION IN A HOME PROGRAM. PATIENT/CAREGIVER WILL DEMONSTRATE IMPROVED BED MOBILITY TECHNIQUES. PATIENT/CAREGIVER WILL DEMONSTRATE SAFE TRANSFERS USING APPROPRIATE ASSISTIVE DEVICE, BODY MECHANICS AND EQUIPMENT. PATIENT/CAREGIVER WILL DEMONSTRATE IMPROVED GAIT TECHNIQUES TO MINIMIZE RISK OF INJURY. PATIENT/CAREGIVER WILL DEMONSTRATE/VERBALIZE UNDERSTANDING OF RECOMMENDATIONS TO INCREASE SAFETY IN THE HOME AND FALL PREVENTION. PATIENT/CAREGIVER WILL DEMONSTRATE IMPROVED WHEELCHAIR MOBILITY AND FITTING. INCREASED PAIN OR INEFFECTIVE PAIN CONTROL MEASURES WILL BE IDENTIFIED AND PROMPTLY REPORTED TO THE PHYSICIAN. PATIENT/CAREGIVER WILL DEMONSTRATE EFFECTIVE PAIN MANAGEMENT. PATIENT/CAREGIVER WILL DEMONSTRATE IMPROVED BALANCE AND REDUCE THE RISK OF FALLS AND INJURY. Goal Provider Goal - OCCUPATIONAL THERAPIST TO EVALUATE PATIENT SECONDARY TO FUNCTIONAL DEFICITS/SAFETY CONCERNS IDENTIFIED DURING EVALUATION. PATIENT/CAREGIVER WILL PERFORM THERAPEUTIC EXERCISE/S AND DEMONSTRATE PARTICIPATION IN A HOME PROGRAM. PATIENT/CAREGIVER WILL DEMONSTRATE SAFE TRANSFERS USING APPROPRIATE ASSISTIVE DEVICE, BODY MECHANICS AND EQUIPMENT. CAREGIVER/PATIENT WILL DEMONSTRATE/VERBALIZE UNDERSTANDING OF RECOMMENDATIONS TO INCREASE SAFETY IN THE HOME AND FALL PREVENTION IN ORDER TO MANAGE ADL PATIENT/CAREGIVER WILL DEMONSTRATE IMPROVED ABILITY TO PERFORM ACTIVITIES OF DAILY LIVING. PATIENT/CAREGIVER WILL DEMONSTRATE IMPROVED ABILITY TO PERFORM INSTRUMENTAL ACTIVITIES OF DAILY LIVING. Encounters Start Date/Time End Date/Time Encounter Type Admission Type Attending [facility] Department Encounter ID Discharge Date Discharge Status Discharge Condition Discharge Reason Percent Goals Met 2024-11-07 00:00:00 2025-01-05 00:00:00 Outpatient NEW ADMISSION [facility] [id number]
--- OUTSIDE RECORDS SUMMARY | 2024-12-21 18:26 | XMS_ITS | Encounter Summary ---
Author Organization [facility] Address [address] [place] [address] Care Team Providers Care Manager International Name Role Phone Brennan Tyson MD Primary Care Provider UnavailOrquidea Duran MD Unavailable Courtney Delong PA-C Unavailable Unavailab Vero Bueno MD Unavailable [phone] Encounter Details Date Type Department Care Team Description 01/16/2022 SCAN Medical Records [address] [place] [id number] Abstract, Provider Social History Tobacco Use Types [...] Name Priority Date/Time Associated Diagnosis Comments OUTSIDE CT Routine 01/16/2022 documented in this encounter Results * OUTSIDE CT (01/16/2022) Provider Abstract RADIOLOGY documented in this encounter Visit Diagnoses Not on filedocumented in this encounter Care Teams Manager International Relationship Specialty Start Date End Date Brennan Tyson MD PCP - General Internal Medicine 12/18/17 Orquidea See MD Specialist Cardiology 08/07/21 Courtney Delong PA-C Cardiology 08/07/21 06/23/24 Vero Masters MD [address] [place] [address] Specialist Cardiology 11/19/22 documented as of this encounter
--- OUTSIDE RECORDS SUMMARY | 2024-12-21 18:26 | XMS_ITS | Encounter Summary ---
Author Organization [facility] Address [address] [place] [address] Care Team Providers Care Wood [employer] Factory Worker Name Role Phone Brennan Tyson MD Primary Care Provider UnavailOrquidea Duran MD Unavailable Courtney Delong PA-C Unavailable Unavailab Vero Bueno MD Unavailable [phone] Reason for Visit * Reason Onset Date Comments Medication 12/24/2017 Encounter Details Date Type Department Care Team Description 12/24/2017 Telephone Pulmonology - [address] [place] [address] Dena Hale NP Medication Social History Tobacco Use Types Packs/Day [...] Telephone Encounter - Dena Hale NP - 12/24/2017 10:37 AM EST Sent prescription for incruse to the pharmacy * Telephone Encounter - Tiffani Cheng M.A. - 12/24/2017 10:35 AM EST Please change to covered Med * Telephone Encounter - Chloe Schwartz - 12/24/2017 9:56 AM EST Who is calling? A pharmacist: Pharmacy: [facility] Pharmacist Name: [facility] Name of the medication Spiriva What is the specific problem or interaction? Not covered - alternatives are Advair, Breo, Incruse and Anoro If the patient is having a problem with taking the med - how long has the problem been going on? N/A documented in this encounter Plan of Treatment Not on file documented as of this encounter Visit Diagnoses Not on filedocumented in this encounter Care Teams [employer] Factory Worker Relationship Specialty Start Date End Date Brennan Tyson MD PCP - General Internal Medicine 12/18/17 Orquidea See MD Specialist Cardiology 08/07/21 Courtney Delong PA-C Cardiology 08/07/21 06/23/24 Vero Masters MD [address] [place] [address] Specialist Cardiology 11/19/22 documented as of this encounter
--- OUTSIDE RECORDS SUMMARY | 2024-12-21 18:26 | XMS_ITS | Encounter Summary ---
Author Organization [facility] Address [address] [place] [address] Care Team Providers Care Psychologist Counseling Name Role Phone Brennan Tyson MD Primary Care Provider Unavailabl e Orquidea See MD Unavailable Courtney Delong PA-C Unavailable Unavailab Vero Masters MD Unavailable [phone] Encounter Details Date Type Department Care Team Description 06/06/2021 Rasper Machine Operator Report Medical Records [address] [place] [address] Brennan Tyson MD Social History Tobacco Use [...] on filedocumented in this encounter Care Teams Psychologist Counseling Relationship Specialty Start Date End Date Brennan Tyson MD PCP - General Internal Medicine 12/18/17 Orquidea See MD Specialist Cardiology 08/07/21 Courtney Delong PA-C Cardiology 08/07/21 06/23/24 Vero Masters MD [address] [place], [place] [id number] Specialist Cardiology 11/19/22 documented as of this encounter
--- OUTSIDE RECORDS SUMMARY | 2024-12-21 18:26 | XMS_ITS ---
Author Organization [facility] Address [address] [address] Care Team Providers Care Assembler Semiconductor Name Role Phone Brennan Tyson Primary Care Provider ARMANDO Steve Unavailable [phone] REASON FOR VISIT Prosthetic and Orthotic referral Encounters Encounter Location Date Provider Diagnosis [facility] [address] [address] 12/17/2024 ARMANDO TORREZ Plan Of Treatment Next Appt Details Provider Name:ARMANDO TORREZ, 03/17/2025 10:30:00 AM, [address] [address], [place], [address], Progress Notes * Keo JACINTODOB:1950 (74 yo M)Acc No.[id number]:12/17/2024 Patient:?Keo JACINTO :1950???Age:74 Y???Sex:Male Phone: Address:[place] [address] * * Date:?
--- OUTSIDE RECORDS SUMMARY | 2024-12-21 18:26 | XMS_ITS | Encounter Summary ---
Author Organization [facility] Address [address] [place] [address] Care Team Providers Care Stereo Equipment Installer Name Role Phone Brennan Tyson MD Primary Care Provider UnavailOrquidea Duran MD Unavailable Courtney Delong PA-C Unavailable Unavailab Vero Bueno MD Unavailable [phone] Reason for Visit * Reason Onset Date Comments DME Request 10/07/2023 [facility] Encounter Details Date Type Department Care Team Description 10/07/2023 Telephone Pulmonology - [place] [address] [facility] [address] [place] [phone] Eren Restrepo MD [address] [place] [phone] DME Request ([facility] ) Social History Tobacco Use Types Packs/Day Years [...] Telephone Encounter - Darrian Vallecillo CMA - 10/30/2023 2:29 PM EST Order faxed with notes * Telephone Encounter - Tara Chinedu - 10/07/2023 3:35 PM EST Fax received from [place] [facility] for confirmation of verbal order for home medical equipment Joseph 08/13/23 Nov 12/17/23 documented in this encounter Plan of Treatment Not on file documented as of this encounter Visit Diagnoses Not on filedocumented in this encounter Care Teams Stereo Equipment Installer Relationship Specialty Start Date End Date Brennan Tyson MD PCP - General Internal Medicine 12/18/17 Orquidea See MD Specialist Cardiology 08/07/21 Courtney Delong, PA-C Cardiology 08/07/21 06/23/24 Vero Masters MD [address] [facility] [address] [place] [address] Specialist Cardiology 11/19/22 documented as of this encounter
--- OUTSIDE RECORDS SUMMARY | 2024-12-21 18:26 | XMS_ITS | Encounter Summary ---
Author Organization [facility] Address [address] [place] [address] Care Team Providers Care Mobile Developer Name Role Phone Brennan Tyson MD Primary Care Provider UnavailOrquidea Duran MD Unavailable Courtney Delong PA-C Unavailable Unavailab Vero Bueno MD Unavailable [phone] Encounter Details Date Type Department Care Team Description 02/19/2022 SCAN Medical Records [address] [place] [address] Abstract, Provider Social History Tobacco Use Types [...] PM EDT documented as of this encounter Plan of Treatment Not on file documented as of this encounter Procedures Procedure Name Priority Date/Time Associated Diagnosis Comments OUTSIDE MRI/MRA Routine 02/19/2022 documented in this encounter Results * OUTSIDE MRI/MRA (02/19/2022) Provider Abstract RADIOLOGY documented in this encounter Visit Diagnoses Not on filedocumented in this encounter Care Teams Mobile Developer Relationship Specialty Start Date End Date Brennan Tyson MD PCP - General Internal Medicine 12/18/17 Orquidea See MD Specialist Cardiology 08/07/21 Courtney Delong PA-C Cardiology 08/07/21 06/23/24 Vero Masters MD [address] [place] [address] Specialist Cardiology 11/19/22 documented as of this encounter
--- OUTSIDE RECORDS SUMMARY | 2024-12-21 18:26 | XMS_ITS | Encounter Summary ---
Author Organization [facility] Address [address] [place] [address] Care Team Providers Care Regional Director Name Role Phone Brennan Tyson MD Primary Care Provider Unavailabl e Orquidea See MD Unavailable Courtney Delong PA-C Unavailable Unavailab Vero Bueno MD Unavailable [phone] Encounter Details Date Type Department Care Team Description 05/05/2023 SCAN Medical Records [address] [place] [address] Abstract, Provider Social History Tobacco Use Types [...] Date/Time Associated Diagnosis Comments OUTSIDE LAB Routine 05/05/2023 documented in this encounter Results * OUTSIDE LAB (05/05/2023) Provider Default LAB documented in this encounter Visit Diagnoses Not on filedocumented in this encounter Care Teams Regional Director Relationship Specialty Start Date End Date Brennan Tyson MD PCP - General Internal Medicine 12/18/17 Orquidea See MD Specialist Cardiology 08/07/21 Courtney Delong PA-C Cardiology 08/07/21 06/23/24 Vero Masters MD [address] [place] [address] Specialist Cardiology 11/19/22 documented as of this encounter
--- OUTSIDE RECORDS SUMMARY | 2024-12-21 18:26 | XMS_ITS | Encounter Summary ---
Author Organization [facility] Address [address] [place] [address] Care Team Providers Care Insurance Risk Analyst Name Role Phone Brennan Tyson MD Primary Care Provider Unavailabl e Orquidea See MD Unavailable Courtney Delong PA-C Unavailable Unavailab Vero Bueno MD Unavailable [phone] Encounter Details Date Type Department Care Team Description 08/15/2020 SCAN Medical Records [address] [place] [address] Orquidea See MD [address] [place] [address] [id number] Social History Tobacco Use Types Packs/Day Years [...] Date/Time Associated Diagnosis Comments OUTSIDE LAB Routine 08/15/2020 documented in this encounter Results * OUTSIDE LAB (08/15/2020) Provider Default LAB documented in this encounter Visit Diagnoses Not on filedocumented in this encounter Care Teams Insurance Risk Analyst Relationship Specialty Start Date End Date Brennan Tyson MD PCP - General Internal Medicine 12/18/17 Orquidea See MD Specialist Cardiology 08/07/21 Courtney Delong PA-C Cardiology 08/07/21 06/23/24 Vero Masters MD [address] [place] [address] Specialist Cardiology 11/19/22 documented as of this encounter
--- OUTSIDE RECORDS SUMMARY | 2024-12-21 18:26 | XMS_ITS | Encounter Summary ---
Author Organization [facility] Address [address] [place] [address] Care Team Providers Care Search Planner Name Role Phone Brennan Tyson MD Primary Care Provider UnavailOrquidea Duran MD Unavailable Courtney Delong PA-C Unavailable Unavailab Vero Bueno MD Unavailable [phone] Encounter Details Date Type Department Care Team Description 07/19/2021 SCAN Medical Records [address] [place] [id number] Abstract, Provider Social History Tobacco Use Types [...] Exposure Response Date Recorded In the last month, have you been in contact with someone who was confirmed or suspected to have Coronavirus / COVID-19? No / Unsure 07/20/2021 7:45 AM EDT documented as of this encounter Plan of Treatment Not on file documented as of this encounter Procedures Procedure Name Priority Date/Time Associated Diagnosis Comments OUTSIDE CT Routine 07/19/2021 documented in this encounter Results * OUTSIDE CT (07/19/2021) Provider Abstract RADIOLOGY documented in this encounter Visit Diagnoses Not on filedocumented in this encounter Care Teams Search Planner Relationship Specialty Start Date End Date Brennan Tyson MD PCP - General Internal Medicine 12/18/17 Orquidea See MD Specialist Cardiology 08/07/21 Courtney Delong PA-C Cardiology 08/07/21 06/23/24 Vero Masters MD [address] [place] [address] Specialist Cardiology 11/19/22 documented as of this encounter
--- OUTSIDE RECORDS SUMMARY | 2024-12-21 18:26 | XMS_ITS | Encounter Summary ---
Author Organization [facility] Address [address] [place] [address] Care Team Providers Care Sales And Marketing Coordinator Name Role Phone Brennan Tyson MD Primary Care Provider UnavailOrquidea Duran MD Unavailable Courtney Delong PA-C Unavailable Unavailab Vero Bueno MD Unavailable [phone] Reason for Visit * Reason Comments E-prescribe Rx Request Encounter Details Date Type Department Care Team Description 01/04/2021 Refill Pulmonology - [place] [address] [facility] [address] [place] [phone] Eren Restrepo MD [address] [place] [phone] E-prescribe Rx Request Social History Tobacco Use [...] encounter Miscellaneous Notes * Telephone Encounter - Turner Patiño - 01/11/2021 10:22 AM EDT [id number] documented in this encounter Plan of Treatment Not on file documented as of this encounter Visit Diagnoses Not on filedocumented in this encounter Care Teams Sales And Marketing Coordinator Relationship Specialty Start Date End Date Brennan Tyson MD PCP - General Internal Medicine 12/18/17 Orquidea See MD Specialist Cardiology 08/07/21 Courtney Delong PA-C Cardiology 08/07/21 06/23/24 Vero Masters MD [address] [place] [address] Specialist Cardiology 11/19/22 documented as of this encounter
--- OUTSIDE RECORDS SUMMARY | 2024-12-21 18:26 | XMS_ITS | Encounter Summary ---
Author Organization [facility] Address [address] [place] [address] Care Team Providers Care Powder Shoveler Name Role Phone Brennan Tyson MD Primary Care Provider Unavailabl e Orquidea See MD Unavailable Courtney Delong PA-C Unavailable Unavailab Vero Bueno MD Unavailable [phone] Encounter Details Date Type Department Care Team Description 05/12/2020 SCAN Medical Records [address] [place] [address] Orquidea See MD [address] [place] [address] [id number] Social History Tobacco Use Types Packs/Day Years [...] Name Priority Date/Time Associated Diagnosis Comments OUTSIDE ECHO Routine 05/12/2020 documented in this encounter Results * OUTSIDE ECHO (05/12/2020) Provider Default CARDIOLOGY documented in this encounter Visit Diagnoses Not on filedocumented in this encounter Care Teams Powder Shoveler Relationship Specialty Start Date End Date Brennan Tyson MD PCP - General Internal Medicine 12/18/17 Orquidea See MD Specialist Cardiology 08/07/21 Courtney Delong PA-C Cardiology 08/07/21 06/23/24 Vero Masters MD [address] [place] [address] Specialist Cardiology 11/19/22 documented as of this encounter
--- OUTSIDE RECORDS SUMMARY | 2024-12-21 18:26 | XMS_ITS | Encounter Summary ---
Author Organization [facility] Address [address] [place] [address] Care Team Providers Care Skein Mercerizing Machine Operator Name Role Phone Brennan Tyson MD Primary Care Provider Unavailabl e Orquidea See MD Unavailable Courtney Delong PA-C Unavailable Unavailab Vero Masters MD Unavailable [phone] Encounter Details Date Type Department Care Team Description 02/14/2020 Refill Medicine/Pediatrics - [address] [phone] Brennan Tyson MD Social History Tobacco Use [...] on filedocumented in this encounter Care Teams Skein Mercerizing Machine Operator Relationship Specialty Start Date End Date Brennan Tyson MD PCP - General Internal Medicine 12/18/17 Orquidea See MD Specialist Cardiology 08/07/21 Courtney Delong PA-C Cardiology 08/07/21 06/23/24 Vero Masters MD [address] [facility] [address] [place] [address] Specialist Cardiology 11/19/22 documented as of this encounter
--- OUTSIDE RECORDS SUMMARY | 2024-12-21 18:26 | XMS_ITS | Encounter Summary ---
Author Organization [facility] Address [address] [place] [address] Care Team Providers Care Shipping Lead Person Name Role Phone Brennan Tyson MD Primary Care Provider UnavailOrquidea Duran MD Unavailable Courtney Delong PA-C Unavailable Unavailab Vero Bueno MD Unavailable [phone] Reason for Visit * Reason Onset Date Comments DME Request 01/08/2022 Encounter Details Date Type Department Care Team Description 01/08/2022 Telephone Pulmonology - [place] 175 [facility] [address] [place] [phone] Eren Restrepo MD [address] [place] [phone] DME Request Social History Tobacco Use Types [...] encounter Miscellaneous Notes * Telephone Encounter - Daysi Conway - 01/16/2022 4:09 PM EDT Faxing over to Derek * Telephone Encounter - Elise Felder - 01/08/2022 2:13 PM EDT Fax received from [facility] for Dr. Kaye hamilton, placed in his mail tray 01/08/22 documented in this encounter Plan of Treatment Not on file documented as of this encounter Visit Diagnoses Not on filedocumented in this encounter Care Teams Shipping Lead Person Relationship Specialty Start Date End Date Brennna Tyson MD PCP - General Internal Medicine 12/18/17 Orquidea See MD Specialist Cardiology 08/07/21 Courtney Delong PA-C Cardiology 08/07/21 06/23/24 Vero Masters MD [address] [address] Specialist Cardiology 11/19/22 documented as of this encounter
--- OUTSIDE RECORDS SUMMARY | 2024-12-21 18:26 | XMS_ITS | Encounter Summary ---
Author Organization [facility] Address [address] [facility] [address] [place] [address] Phone Care Team Providers Care End Worker Name Role Phone Brennan Tyson MD Primary Care Provider Encounter Details Date Type Department Care Team (Late st Contact Info) Description 08/28/2022 Telephone [facility] [address] [facility] [address] [place] [phone] Kevin Oglesby MD [address] [place] [phone] Social History Tobacco Use Types Packs/Day Years [...] encounter Miscellaneous Notes * Telephone Encounter - Chely Haines - 09/04/2022 1:55 PM EST Pt called back, he would like to speak with you when available. He is very concerned about his bp readings. Please call him back at [phone] Thank you * Telephone Encounter - Chely Haines - 08/28/2022 1:44 PM EST Pt called, his bop is still running high. Pt called his bp readings for the last week are as follows 169/71 153/75 143/82 137/72 161/79 He would like to speak with you to adjust his meds again. Please call him back at [phone] documented in this encounter Plan of Treatment Not on file documented as of this encounter Visit Diagnoses Not on filedocumented in this encounter Care Teams End Worker Relationship Specialty Start Date End Date Brennan Tyson MD [address] [place], [place] PCP - General 10/30/20 documented as of this encounter
--- OUTSIDE RECORDS SUMMARY | 2024-12-21 18:26 | XMS_ITS | Encounter Summary ---
Author Organization [facility] Address [address] [place] [address] Care Team Providers Care Branding Machine Operator Name Role Phone Brennan Tyson MD Primary Care Provider Unavailabl e Orquidea See MD Unavailable Courtney Delong PA-C Unavailable Unavailab Vero Bueno MD Unavailable [phone] Encounter Details Date Type Department Care Team Description 06/18/2022 Gantry Rigger Report Medical Records [address] [place] [address] Brennan Tyson MD Social History Tobacco Use [...] suspected to have Coronavirus/COVID-19? No / Unsure 06/21/2022 12:15 PM EDT documented as of this encounter Plan of Treatment Not on file documented as of this encounter Visit Diagnoses Not on filedocumented in this encounter Care Teams Branding Machine Operator Relationship Specialty Start Date End Date Brennan Tyson MD PCP - General Internal Medicine 12/18/17 Orquidea See MD Specialist Cardiology 08/07/21 Courtney Delong PA-C Cardiology 08/07/21 06/23/24 Vero Masters MD [address] [place] [address] Specialist Cardiology 11/19/22 documented as of this encounter
--- OUTSIDE RECORDS SUMMARY | 2024-12-21 18:26 | XMS_ITS | Encounter Summary ---
Author Organization [facility] Address [address] [place] [address] Care Team Providers Care Health Promotion Specialist Name Role Phone Brennan Tyson MD Primary Care Provider UnavailOrquidea Duran MD Unavailable Courtney Delong PA-C Unavailable Unavailab Vero Bueno MD Unavailable [phone] Reason for Visit * Reason Comments E-prescribe Rx Request Encounter Details Date Type Department Care Team Description 12/12/2022 Refill Pulmonology - [place] [address] [facility] [address] [place] [phone] Eren Restrepo MD [address] [place] [phone] E-prescribe Rx Request Social History Tobacco Use [...] PM EST documented as of this encounter Miscellaneous Notes * Telephone Encounter - Ximena Jacobson 12/12/2022 4:55 PM EST Patient would like script to be: E-PRESCRIBED/FAXED TO PHARMACY WHEN WAS THE PATIENT'S LAST APPOINTMENT IN ADULT MEDICINE? 08/22/22 WHEN WAS THE LAST TIME THE PATIENT [...] / [place] / Product Type: [place]ICARE [id number] documented in this encounter Plan of Treatment Not on file documented as of this encounter Visit Diagnoses Diagnosis Chronic obstructive pulmonary disease, unspecified COPD type (HCC) documented in this encounter Care Teams Health Promotion Specialist Relationship Specialty Start Date End Date Brennan Tyson MD PCP - General Internal Medicine 12/18/17 Orquidea See MD Specialist Cardiology 08/07/21 Courtney Delong PA-[place] Cardiology 08/07/21 06/23/24 Vero Masters MD [address] [place] [address] Specialist Cardiology 11/19/22 documented as of this encounter
--- OUTSIDE RECORDS SUMMARY | 2024-12-21 18:26 | XMS_ITS | Encounter Summary ---
Author Organization [facility] Address [address] [place] [address] Care Team Providers Care Tube Laser Operator Name Role Phone Brennan Tyson MD Primary Care Provider UnavailOrquidea Duran MD Unavailable Courtney Delong PA-C Unavailable Unavailab Vero Bueno MD Unavailable [phone] Reason for Visit * Reason Comments E-prescribe Rx Request Encounter Details Date Type Department Care Team Description 02/02/2022 Refill Pulmonology - [place] [address] [facility] [address] [place] [phone] Eren Restrepo MD [address] [place] [phone] E-prescribe Rx Request Social History Tobacco Use [...] encounter Miscellaneous Notes * Telephone Encounter - May Ruanoez - 02/04/2022 9:54 AM EDT Patient would like script to [...] / Plan[place] / Product Type: [place]ICARE [id number] documented in this encounter Plan of Treatment Not on file documented as of this encounter Visit Diagnoses Diagnosis Chronic obstructive pulmonary disease, unspecified COPD type (HCC) documented in this encounter Care Teams Tube Laser Operator Relationship Specialty Start Date End Date Brennan Tyson MD PCP - General Internal Medicine 12/18/17 Orquidea See MD Specialist Cardiology 08/07/21 Courtney Delong PA-C Cardiology 08/07/21 06/23/24 Vero Masters MD [address] [place] [address] Specialist Cardiology 11/19/22 documented as of this encounter
--- OUTSIDE RECORDS SUMMARY | 2024-12-21 18:26 | XMS_ITS | Encounter Summary ---
Author Organization [facility] Address [address] [place] [address] Care Team Providers Care Pediatric Oncology Nurse Name Role Phone Brennan Tyson MD Primary Care Provider UnavailOrquidea Duran MD Unavailable Courtney Delong PA-C Unavailable Unavailab Vero Bueno MD Unavailable [phone] Reason for Visit * Reason Comments E-prescribe Rx Request Encounter Details Date Type Department Care Team Description 2024 Refill Pulmonology - [place] 175 [facility] [address] [place] [phone] Eren Restrepo MD [address] [place] [phone] E-prescribe Rx Request Social History Tobacco Use [...] encounter Miscellaneous Notes * Telephone Encounter - Tara Che - 2024 10:32 AM EDT The original prescription was discontinued on 05/28/2023 by Shani Geiger C.M.A.. Renewing this prescription may not be appropriate. Nov 02/12/24 Joseph 08/13/23 documented in this encounter Plan of Treatment Not on file documented as of this encounter Visit Diagnoses Diagnosis Chronic obstructive pulmonary disease, unspecified COPD type (HCC) documented in this encounter Care Teams Pediatric Oncology Nurse Relationship Specialty Start Date End Date Brennan Tyson MD PCP - General Internal Medicine 12/18/17 Orquidea See MD Specialist Cardiology 08/07/21 Courtney Delong PA-C Cardiology 08/07/21 06/23/24 Vero Masters MD [address] [place] [address] Specialist Cardiology 11/19/22 documented as of this encounter
--- OUTSIDE RECORDS SUMMARY | 2024-12-21 18:26 | XMS_ITS | Encounter Summary ---
Author Organization [facility] Address [address] [place] [address] Care Team Providers Care Health Club Manager Name Role Phone Brennan Tyson MD Primary Care Provider Unavailabl Orquidea Gagnon MD Unavailable Courtney Delong PA-C Unavailable Unavailab Vero Bueno MD Unavailable [phone] Encounter Details Date Type Department Care Team Description 12/19/2017 Refill Pulmonology - [address] [place] [phone] Dena Hale NP Social History Tobacco Use [...] Telephone Encounter - Dena Hale NP - 12/22/2017 9:07 AM EST sent * Telephone Encounter - Lynda Juarez - 12/19/2017 4:47 PM EST Patient would like script to be: E-PRESCRIBED/FAXED TO PHARMACY Does patient have an upcoming appointment? Yes 06/18/18 (THE MEDICATION REQUESTED IS ON THE MED LIST ABOVE) All of the medications requested were on the CURRENT MEDS list Did you check the Pharmacy information above?: YES Patient wants: 30 -day supply Is this a mail order prescription request ? NO Patients current insurance carrier is: [place] / [place] / Product Type: MED[place]ARE [id number] documented in this encounter Plan of Treatment Not on file documented as of this encounter Visit Diagnoses Diagnosis Chronic obstructive pulmonary disease, unspecified COPD type (HCC) Seasonal allergic rhinitis, unspecified chronicity, unspecified trigger Elevated blood pressure reading Elevated blood pressure reading without diagnosis of hypertension S/P laparoscopic sleeve gastrectomy documented in this encounter Care Teams Health Club Manager Relationship Specialty Start Date End Date Brennan Tyson MD PCP - General Internal Medicine 12/18/17 Orquidea See MD Specialist Cardiology 08/07/21 Courtney Delong PA-C Cardiology 08/07/21 06/23/24 Vero Masters MD [address] [place] [address] Specialist Cardiology 11/19/22 documented as of this encounter
--- OUTSIDE RECORDS SUMMARY | 2024-12-21 18:26 | XMS_ITS | Encounter Summary ---
Author Organization [facility] Address [address] [place] [address] Care Team Providers Care Brush Polisher Name Role Phone Brennan Tyson MD Primary Care Provider UnavailOrquidea Duran MD Unavailable Courtney Delong PA-C Unavailable Unavailab Vero Bueno MD Unavailable [phone] Encounter Details Date Type Department Care Team Description 03/05/2022 Telephone Pulmonology - [place] [address] [facility] [address] [place] [phone] Eren Restrepo MD [address] [place] [phone] Social History Tobacco Use Types Packs/Day Years [...] on filedocumented in this encounter Care Teams Brush Polisher Relationship Specialty Start Date End Date Brennan Tyson MD PCP - General Internal Medicine 12/18/17 Orquidea See MD Specialist Cardiology 08/07/21 Courtney Delong PA-C Cardiology 08/07/21 06/23/24 Vero Masters MD [address] [place] [address] Specialist Cardiology 11/19/22 documented as of this encounter
--- OUTSIDE RECORDS SUMMARY | 2024-12-21 18:26 | XMS_ITS | Clinical Summary ---
Author Organization [facility] Address [address] [address] Care Team Providers Care Mixed Signal Design Engineer Name Role Phone Brennan Tyson MD Primary Care Provider [phone] Allergies Active Allergy Reactions Criticality Noted Date Comments Labetalol 01/18/2022 Tetanus Toxoid 01/18/2022 Medications Fluticasone-Hao meterol 100-50 MCG/ACT aerosol powder Inhale 1 puff 4 times a day 3 Active atorvastatin (LIPITOR) 40 MG tablet Take 40 mg by mouth 1 (one) time each day 0 Active carvedilol (COREG) 25 MG tablet Take 25 mg by mouth in the morning and 25 mg in the evening. Take with meals. 2 Active fenofibrate (TRIGLIDE) 160 MG tablet Take 80 mg by mouth 1 (one) time each day 2 Active tamsulosin (FLOMAX) 0.4 MG 24 hr capsule Take 1 capsule by mouth 1 (one) time each day 2 Active montelukast (SINGULAIR) 10 MG tablet Take 10 mg by mouth every night Active omeprazole (PriLOSEC) [address] capsule Take 40 mg by mouth 1 (one) time each day Do not crush or chew. Active albuterol (2.5 MG/3ML) 0.083% nebulizer solution TAKE 1 VIAL BY NEBULIZATION EVERY 4 HOURS NEEDED FOR WHEEZING FOR UP TO 30 DAYS. 2 Active Heparin Sodium, Porcine, (heparin, porcine,) 5000 UNIT/ML injection 2 Active DULoxetine (CYMBALTA) [address] capsule Take 60 mg by mouth 1 (one) time each day 3 Active amLODIPine (NORVASC) 10 MG tablet Take 10 mg by mouth 1 (one) time each day Active rOPINIRole (REQUIP) 1 MG tablet Take 2 mg by mouth every night Active Umeclidinium [place] (INCRUSE ELLIPTA IN) Inhale Active clopidogrel (PLAVIX) 75 MG tablet 3 Active bumetanide (BUMEX) 1 MG tablet Take 1 mg by mouth 1 (one) time each day 3 Active Symbicort 160-4.5 MCG/ACT inhaler PLEASE SEE ATTACHED FOR DETAILED DIRECTIONS 3 Active traMADol (ULTRAM) 50 MG tablet TAKE 1 TABLET BY MOUTH EVERY 6 HOURS FOR 7 DAYS 3 Active LORazepam (ATIVAN) 0.5 MG tablet TAKE 1 TABLET BY MOUTH EVERY DAY NEEDED ANXIETY 3 Active sertraline (ZOLOFT) 50 MG tablet 3 Active ketotifen (ZADITOR) 0.025 % ophthalmic solution INSITLL 1 DROP INTO LEFT EYE EVERY 8 HOURS 3 Active metOLazone 5 MG tablet Take 1 tablet (5 mg total) by mouth 1 (one) time each day for 5 days 5 tablet 3 Active Active Problems Problem Noted Date Diagnosed Date Dyspnea 11/15/2022 Benign hypertensive renal disease 11/07/2022 Nephrolithiasis 11/07/2022 Acute nontraumatic kidney injury 11/07/2022 Stage 3a chronic kidney disease 11/07/2022 Anemia 08/22/2022 Proteinuria 08/22/2022 Chronic kidney disease, stage 2 (mild) 2 Abnormal gait 04/10/2021 Abrasion of skin of left elbow region 04/10/2021 Fall 04/10/2021 History of calculus of kidney 11/12/2016 Hypertension 11/12/2016 Overview (08/22/2022): Last Assessment & Plan: Bp check tomorrow to compare his homd Bp meter. Type 2 diabetes mellitus without complication Chronic kidney disease stage 3 05/06/2013 Resolved Problems Problem Noted Date Diagnosed Date Resolved Date Anxiety 11/07/2022 11/07/2022 Aortic root dilatation 11/07/202211/07 Atypical angina 11/07/2022 11/07/2022 Cerebrovascular accident 11/07/2022 History of chronic lung disease 11/07/2022 11/07/2022 Major depression in partial remission 11/07/2022 11/07/2022 Obesity 11/07/2022 11/07/2022 Aortic valve regurgitation 08/22/2022 0 11/07/2022 Coronary arteriosclerosis 08/22/2022 Diastolic dysfunction 08/22/20222022 Gastroesophageal reflux disease 08/22/2022 11/07/2022 Hyperparathyroidism 08/22/2022 11/07/19 Hyperlipidemia 08/22/2022 11/07/2022 Recurrent coronary arteriosc lerosis after percutaneous transluminal coronary angioplasty 08/22/2022 11/07/2022 Atrial fibrillation 05/17/2021 11/07/19 Overview (08/22/2022): Last Assessment & Plan: Status post cardioversion. Remains in sinus rhythm currently. We will continue beta-amairani and anticoagulation. Congestive heart failure 05/17/2021 Overview (08/22/2022): Last Assessment & Plan: Difficult to be certain whether the fine crackle is related to heart failure all his baseline COPD. Will empirically increase furosemide to 40 mg daily for a few days. If he does not feel difference of shortness of breath symptoms, will resume 20 mg daily. If he is going to continue 40 mg daily, will repeat BMP and magnesium in 1 week. Chronic obstructive pulmonary disease 07/16/2017 11/07/2022 History of sleeve gastrectomy 07/16/2017 11/07/2022 Obstructive sleep apnea syndrome 07/16/2017 11/07/2022 Overview (08/22/2022): 11/2021 Home Sleep Study did not reveal sleep apnea or nocturnal hypoxia. Asthma 12/06/2016 11/07/2022 Arthritis 11/12/2016 11/07/2022 Immunizations Name Administration Dates Next Due Influenza Split High Dose Pr eservative Free IM 06/27/2020,02/01/2015 Influenza Whole 08/16/2020 Influenza, Unspecified 08/12/2022 Moderna SARS-COV-2 01/29/2022, 1,12/15/2020,12/09,11/17/2020 Pneumococcal Conjugate 13-Valent 05/07/2016 Pneumococcal Polysaccharide 08/12/2018, 1 Shingrix 01/03/2021, 1,10/03/2020,10/03 Tdap 10/20/2013 Zoster 07/27/2015 Social History Tobacco Use Types Packs/Day Years Used Date Smoking Tobacco: Never Smokeless Tobacco: Never Tobacco Cessation:Counseling Given: Not Answered Alcohol Use Standard Drinks/Week Comments No 0 (1 standard drink = 0.6 oz pur e alcohol) Sex and Gender Information Value Date Recorded Sex Assigned at Not on file Legal Sex Male 5:23 PM EST Gender Identity Not on file Sexual Orientation Not on file Last Filed Vital Signs Vital Sign Reading Time Taken Comments Blood Pressure 130/80 07/10/2023 2:34 PM EDT Pulse 77 07/10/2023 2:34 PM EDT Temperature - - Respiratory Rate - - Oxygen Saturation 93% 07/10/2023 2:34 PM EDT Inhaled Oxygen Concentration - - Weight 90.7 kg (200 lb) 07/10/2023 2:34 PM EDT Height 167.6 cm (5' 6 ) 08/22/2022 3:51 PM EDT Body Mass Index 32.28 08/22/2022 3:51 PM EDT Plan of Treatment Health Maintenance Due Date Last Done Comments Colorectal Cancer Screening: Annual FOBT 02/11/2000 Colorectal Cancer Screening: Colonoscopy 02/11/2000 Colorectal Cancer Screening: Sigmoidoscopy 02/11/2000 Diabetes: Ophthalmology Exam 08/22/2022 Diabetes: Pedal Pulse Checked 08/22/2022 Diabetes: Sensory Foot Exam 08/22/2022 Diabetes: Visual Foot Exam 08/22/2022 Diabetes: Hemoglobin A1C 12/30/2022 10/01/2022, 06/21 Influenza Vaccine (#1) 2024 , 08/16/2020, 06/27/2020, Additional history exists Pneumococcal Vaccine: 65+ Years Completed 08/12/2018, 05/07/2016, 07/22/2011 Hepatitis B Vaccine Aged Out No longe r eligible based on patient's age to complete this topic Procedures Procedure Name Priority Date/Time Associated Diagnosis Comments SPECIAL CHEMISTRY Routine 10/01/2022 6:0 0 AM EST from Last 3 Months or Most Recently Relevant to Health Maintenance Results * SPECIAL CHEMISTRY (10/01/2022 6:00 AM EST) Hemoglobin A1C 5.0 4.8 - 5.9 % [facility] 10/01/2022 6:00 AM EST 10/02/2022 6:59 AM EST Narrative [facility]PS [facility] - 10/01/2022 6:00 AM EST Unless otherwise specified, test(s) performed at: [facility], [address] [place] [address] CHOPPER GUN OPERATOR: Ru Coffman M.D. For any questions, please call customer service at FREQUENCY:MONTHLY Resulting Agency Comment Specimen source: Blood Byron Pham MD LAB BLOOD BANK TEST ORDERABLES F inal Result [facility] from Last 3 Months or Most Recently Relevant to Health Maintenance Insurance [place] Care Teams Mixed Signal Design Engineer Relationship Specialty Start Date End Date Brennan Tyson MD [facility] [place], [place] PCP - General 10/30/20
--- OUTSIDE RECORDS SUMMARY | 2024-12-21 18:26 | XMS_ITS | Encounter Summary ---
Author Organization [facility] Address [address] [place] [address] Care Team Providers Care Cinder Man Name Role Phone Brennan Tyson MD Primary Care Provider UnavailOrquidea Duran MD Unavailable Courtney Delong PA-C Unavailable Unavailab Vero Bueno MD Unavailable [phone] Encounter Details Date Type Department Care Team Description 12/03/2021 Orders Only Pulmonology - [place] [address] [facility] [address] [place] [phone] Eren Restrepo MD [address] [place] [phone] RICKIE (obstructive sleep apnea) Social History Tobacco Use Types Packs/Day Years [...] Procedure Name Priority Date/Time Associated Diagnosis Comments SLEEP STUDY-FULL NEURO 16 CHANNEL Routine 11/28/2021 RICKIE (obstructive sleep apnea) documented in this encounter Results * SLEEP STUDY-FULL NEURO 16 CHANNEL (11/28/2021) Eren Restrepo MD PULMONOLOGY documented in this encounter Visit Diagnoses Diagnosis RICKIE (obstructive sleep apnea) Obstructive sleep apnea (adult) (pediatric) documented in this encounter Care Teams Cinder Man Relationship Specialty Start Date End Date Brennan Tyson MD PCP - General Internal Medicine 12/18/17 Orquidea See MD Specialist Cardiology 08/07/21 Courtney Delong PA-C Cardiology 08/07/21 06/23/24 Vero Masters MD [address] [place] [address] [address] [place] [address] Specialist Cardiology 11/19/22 documented as of this encounter
--- OUTSIDE RECORDS SUMMARY | 2024-12-21 18:26 | XMS_ITS | Encounter Summary ---
Author Organization [facility] Address [address] [place] [address] Care Team Providers Care Collision Estimator Name Role Phone Brennan Tyson MD Primary Care Provider UnavailOrquidea Duran MD Unavailable Courtney Delong PA-C Unavailable Unavailab Vero Bueno MD Unavailable [phone] Reason for Visit * Reason Comments E-prescribe Rx Request Encounter Details Date Type Department Care Team Description 09/01/2023 Refill Pulmonology - [place] [address] [facility] [address] [place] [phone] Eren Restrepo MD [address] [place] [phone] E-prescribe Rx Request Social History Tobacco Use [...] suspected to have Coronavirus/COVID-19? No / Unsure 08/13/2023 10:39 AM EDT documented as of this encounter Miscellaneous Notes * Telephone Encounter - May Ruanomanuelito - 09/02/2023 4:48 PM EST MAYTE 08/13/23 NOV 12/17/23 documented in this encounter Plan of Treatment Not on file documented as of this encounter Visit Diagnoses Diagnosis Chronic obstructive pulmonary disease, unspecified COPD type (HCC) documented in this encounter Care Teams Collision Estimator Relationship Specialty Start Date End Date Brennan Tyson MD PCP - General Internal Medicine 12/18/17 Orquidea See MD Specialist Cardiology 08/07/21 Courtney Delong PA-C Cardiology 08/07/21 06/23/24 Vero Masters MD [address] [place] [address] Specialist Cardiology 11/19/22 documented as of this encounter
--- OUTSIDE RECORDS SUMMARY | 2024-12-21 18:26 | XMS_ITS | Encounter Summary ---
Author Organization [facility] Address [address] [place] [address] Care Team Providers Care Pastrycook Name Role Phone Brennan Tyson MD Primary Care Provider UnavailOrquidea Duran MD Unavailable Courtney Delong PA-C Unavailable Unavailab Vero Bueno MD Unavailable [phone] Reason for Visit * Reason Comments E-prescribe Rx Request Encounter Details Date Type Department Care Team Description 02/05/2022 Refill Pulmonology - [place] 175 [facility] [address] [place] [phone] Eren Restrepo MD [address] [place] [phone] E-prescribe Rx Request Social History Tobacco Use [...] encounter Miscellaneous Notes * Telephone Encounter - Quin Morris - 02/05/2022 1:51 PM EDT Patient would like script to be: E-PRESCRIBED/FAXED TO PHARMACY WHEN WAS THE PATIENT'S LAST APPOINTMENT IN ADULT MEDICINE?01/18/2022 WHEN WAS THE LAST TIME THE PATIENT SAW THEIR PCP? Same as above Does patient have an upcoming appointment? Yes 07/22/2022 (THE MEDICATION REQUESTED IS ON THE MED [...] / Plan: [place] / Product Type: MEDICARE [id number] documented in this encounter Plan of Treatment Not on file documented as of this encounter Visit Diagnoses Diagnosis Chronic obstructive pulmonary disease, unspecified COPD type (HCC) documented in this encounter Care Teams Pastrycook Relationship Specialty Start Date End Date Brennan Tyson MD PCP - General Internal Medicine 12/18/17 Orquidea See MD Specialist Cardiology 08/07/21 Courtney Delnog PA-C Cardiology 08/07/21 06/23/24 Vero Masters MD [address] [place] [id number] Specialist Cardiology 11/19/22 documented as of this encounter
--- OUTSIDE RECORDS SUMMARY | 2024-12-21 18:26 | XMS_ITS | Encounter Summary ---
Author Organization [facility] Address [address] [place] [address] Care Team Providers Care Curam Developer Name Role Phone Brennan Tyson MD Primary Care Provider UnavailOrquidea Duran MD Unavailable Courtney Delong PA-C Unavailable Unavailab Vero Bueno MD Unavailable [phone] Reason for Visit * Reason Onset Date Comments TEST RESULTS 02/26/2022 Encounter Details Date Type Department Care Team Description 02/26/2022 Telephone Pulmonology - [place] [address] [facility] [address] [place] [phone] Eren Restrepo MD [address] [place] [phone] TEST RESULTS Social History Tobacco Use Types Packs/Day Years [...] encounter Miscellaneous Notes * Telephone Encounter - Eren Restrepo MD - 02/27/2022 3:30 PM EDT Spoke to him- will start oxygen qhs, order in * Telephone Encounter - Elise Felder - 02/26/2022 2:04 PM EDT Patient calling stating that he had an at home sleep study done a couple of weeks ago and he would like the results. documented in this encounter Plan of Treatment Not on file documented as of this encounter Procedures Procedure Name Priority Date/Time Associated Diagnosis Comments OXYGEN-HOME Routine 02/27/2022 3:31 PM EDT Chronic obstructive pulmonary disease, unspecified COPD type (HCC) documented in this encounter Visit Diagnoses Diagnosis Chronic obstructive pulmonary disease, unspecified COPD type (HCC)- Primary documented in this encounter Care Teams Curam Developer Relationship Specialty Start Date End Date Brennan Tyson MD PCP - General Internal Medicine 12/18/17 Orquidea See MD Specialist Cardiology 08/07/21 Courtney Delong PA-C Cardiology 08/07/21 06/23/24 Vero Masters MD [address] [place] [id number] Specialist Cardiology 11/19/22 documented as of this encounter
== END 2024-12-21 15:39 | disposition home or self-care (01) ==
PROVIDERS: PCP Internal Medicine; Visit Provider Internal Medicine Nephrology
DX: Z90.5 Acquired absence of kidney (principal); R60.9 Edema, unspecified; I10 Essential (primary) hypertension; N18.31 Chronic kidney disease, stage 3a; N39.490 Overflow incontinence
CPT/HCPCS: 99214

== ENCOUNTER → 2024-12-21 14:33 | Outpatient (BNVA) | payer MEDICARE, MEDICAID, SELFPAY | PROVIDERS: PCP Internal Medicine; Visit Provider Internal Medicine Nephrology | DX: I12.9 Hypertensive chronic kidney disease with stage 1 through stage 4 chronic kidney disease, or unspecified chronic kidney disease (principal); N18.31 Chronic kidney disease, stage 3a; R60.9 Edema, unspecified; N39.490 Overflow incontinence; Z90.5 Acquired absence of kidney | CPT/HCPCS: 99212 ==

== ENCOUNTER 2025-04-07 13:53 | Outpatient (AMB) | payer MEDICARE, MEDICAID, SELFPAY ==
--- NOTE | 2025-04-07 14:02 | HO.NEPHOV_ITS ---
Vital Signs 04/07/25 14:03 Height 5 ft 5 in Weight 312 lb 2 oz BMI 51.9 BP 124/70 Blood Pressure Location Rt brachial Position Sitting Pulse 96 Pulse Source Pulse Oximeter Pulse Oximetry (%) 98 Oxygen Delivery Method Room Air Intake Visit Reasons: 3mon follow-up w/labs Web Architect Required: No Accompanied by: Daughter Allergies labetalol Allergy (Verified 04/07/25 14:03) Unknown tetanus toxoid, adsorbed Allergy (Verified 04/07/25 14:03) Unknown HPI Comments Details: Juan Carlos was seen in follow up for his CKD. His renal function is at baseline. He has some edema. He has H/O bleed around his acquired solitary kidney needing HD. He recovered his renal function and had come off HD. He denies chest pain, nausea, vomiting, diarrhea . His urine output is good. He has no blood in the urine. He tries to hydrate himself and avoids NSAID's. 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 [facility], [facility] Medical History (Updated 12/21/24 @ 15:32 by Byron Pham MD) Depression Anxiety CHF (congestive heart failure) COPD (chronic obstructive pulmonary disease) Hypertension Presence of Watchman left atrial appendage closure device Surgical History H/O ankle fusion History of heart artery stent History of back surgery Family History Father Leukemia Mother Heart disease Hypertension Social History Alcohol intake: never Patient Tobacco Use Status: Former Tobacco user Review of Systems Const All systems reviewed & are unremarkable except as noted in HPI and below Physical Exam Vital Signs: Last Vital Signs Pulse 96 04/07/25 14:03 BP 124/70 04/07/25 14:03 Pulse Ox 98 04/07/25 14:03 Oxygen Delivery Method Room Air 04/07/25 14:03 BMI result Body Mass Index 51.9 Const General: comfortable and no acute distress Orientation/consciousness: patient oriented x3 HEENT Head: Yes normocephalic Mouth: Normal oral and palatal mucosa present Eyes EOM: EOMs intact bilaterally Neck Neck: Yes supple Resp Auscultation: clear to auscultation bilaterally Cardio Jugular venous distension: no JVD Rate: regular rate GI Palpation (GI): Soft to palpation Auscultation: normal bowel sounds General: Yes no CVA tenderness Back/Spine/Pelvis Back: no CVA tenderness Skin General skin exam: no rashes or lesions noted Neuro General: patient oriented x3 and moves all extremities Extrem General: Yes no pedal edema Assessment & Plan Assessment & Plan (1) CKD (chronic kidney disease) stage 3, GFR 30-59 ml/min: Code(s): N18.30 - Chronic kidney disease, stage 3 unspecified Category: Medical Qualifiers: Chronic kidney disease stage 3 subtype: stage 3a (GFR 45-59) Qualified Code(s): N18.31 - Chronic kidney disease, stage 3a (2) Solitary kidney, acquired: Code(s): Z90.5 - Acquired absence of kidney Category: Medical (3) Hypertension: Code(s): I10 - Essential (primary) hypertension Category: Medical Qualifiers: Hypertension type: primary hypertension Qualified Code(s): I10 - Essential (primary) hypertension Plan Renal function had been close to baseline C/W Bumex 3 mg daily C/W Metalozone 5 mg to twice a week Asked to take extra 5 mg Metalozone if needed Fluid restriction. 2 Gm Na restriction, Daily weights C/W Allopurinol 200 mg daily F/U given ; All his & daughters questions answered Orders: Orders Uric Acid 3 Months I10 - Essential (primary) hypertension, N18.31 - Chronic kidney disease, stage 3a, Z90.5 - Acquired absence of kidney Creatinine 3 Months I10 - Essential (primary) hypertension, N18.31 - Chronic kidney disease, stage 3a, Z90.5 - Acquired absence of kidney Blood Urea Nitrogen 3 Months I10 - Essential (primary) hypertension, N18.31 - Chronic kidney disease, stage 3a, Z90.5 - Acquired absence of kidney Electrolytes 3 Months I10 - Essential (primary) hypertension, N18.31 - Chronic kidney disease, stage 3a, Z90.5 - Acquired absence of kidney Calcium 3 Months I10 - Essential (primary) hypertension, N18.31 - Chronic kidney disease, stage 3a, Z90.5 - Acquired absence of kidney Coding Level of Care Code Est Pt Level 4 (91078) Diagnoses Stage 3a chronic kidney disease N18.31 Chronic kidney disease stage 3 subtype: stage 3a (GFR 45-59) Solitary kidney, acquired Z90.5 Primary hypertension I10 Hypertension type: primary hypertension
[2025-04-07 14:03] VITALS: BP 124/70; PULSE 96; O2SAT 98; BMI 51.9
--- OUTSIDE RECORDS SUMMARY | 2025-04-07 15:08 | XMS_ITS | Encounter Summary ---
Author Organization [facility] Address [address] [place] [address] Care Team Providers Care [employer] Name Role Phone Brennan Tyson MD Primary Care Provider [phone] Encounter Details Date Type Department Care Team (Late st Contact Info) Description 10/25/2024 Lab Requisition [facility] - Main Lab [address] [facility] [place] [address] Radha Gonzales MD [address] [place] [id number] Encounter for other general examination Social History [...] Care Team (Late st Contact Info) Description 08/18/2025 8:30 AM EDT Office Visit Pulmonol - [place] [address] [facility] [address] [place] [address] Eren Restrepo MD [address] [facility] [address] [place] [address] documented as of this encounter Procedures Procedure [...] % LAB HEMETOLOGY METHOD 10/25/2024 2:21 PM [facility] Bands % 1.0 % LAB HEMETOLOGY METHOD 10/25/2024 2:21 PM [facility] Lymphocytes % 4.0 % LAB HEMETOLOGY METHOD 10/25/2024 2:21 PM [facility] Monocytes % 2.0 % LAB HEMETOLOGY METHOD 10/25/2024 2:21 PM [facility] Eosinophils % 0.0 % LAB HEMETOLOGY METHOD 10/25/2024 2:21 PM [facility] Basophils % 0.0 % LAB HEMETOLOGY METHOD 10/25/2024 2:21 PM [facility] Myelocytes % 1.0(H) % LAB HEMETOLOGY METHOD 10/25/2024 2:21 PM [facility] Neutrophils Absolute Manual 21.20(H) 1.50 - 7.00 K/mcL LAB HEMETOLOGY METHOD 10/25/2024 2:21 PM [facility] Bands Absolute Manual 0.23(H) 0.00 - 0.00 K/mcL LAB HEMETOLOGY METHOD 10/25/2024 2:21 PM [facility] Lymphocytes Absolute 0.91(L) 1.00 - 5.00 K/mcL LAB HEMETOLOGY METHOD 10/25/2024 2:21 PM EST [facility] Monocytes Absolute Manual 0.46 0.20 - 1.00 K/mcL LAB HEMETOLOGY METHOD 10/25/2024 2:21 PM [facility] Eosinophils Absolute Manual 0.00 0.00 - 0.50 K/mcL LAB HEMETOLOGY METHOD 10/25/2024 2:21 PM EST [facility] Basophils Absolute Manual 0.00 0.00 - 0.20 K/[facility] LAB HEMETOLOGY METHOD 10/25/2024 2:21 PM [facility] Myelocytes Absolute Manual 0.23(H) 0.00 - 0.00 K/mcL LAB HEMETOLOGY METHOD 10/25/2024 2:21 PM [facility] Rbc Morphology Present( A) Consistent with indices, Normal for [place] LAB HEMETOLOGY METHOD 10/25/2024 2:21 PM EST [facility] Platelet Morphology - WAM See Note(A) Normal LAB HEMETOLOGY METHOD 10/25/2024 2:21 PM EST [facility] Comment:PLT: Normal Schistocytes Present < 5%(A) (none) LAB HEMETOLOGY METHOD 10/25/2024 2:21 PM [facility] Blood Venous blood specimen / Unknown Venipuncture / Unknown 10/25/2024 6:59 AM EST 10/25/2024 12:46 PM EST us Radha Gonzales MD LAB BLOOD ORDERABLES Final Res ult [facility] [address] [place] [address], [place] [phone] * (ABNORMAL) CBC auto differential (10/25/2024 6:59 AM EST) WBC 22.8(H) 4.8 - 10.8 K/mcL LAB HEMETOLOGY METHOD 10/25/2024 2:21 PM [facility] RBC 4.10(L) 4.50 - 5.50 M/mcL LAB HEMETOLOGY METHOD 10/25/2024 2:21 PM [facility] Hemoglobin 10.6(L) 13.5 - 17.5 g/dL LAB HEMETOLOGY METHOD 10/25/2024 2:21 PM [facility] Hematocrit 36.5(L) 42.0 - 54.0 % LAB HEMETOLOGY METHOD 10/25/2024 2:21 PM [facility] MCV 89.0 79.0 - 98.0 FL LAB HEMETOLOGY METHOD 10/25/2024 2:21 PM [facility] MCH 25.9(L) 27.0 - 32.0 pcg LAB HEMETOLOGY METHOD 10/25/2024 2:21 PM [facility] MCHC 29.0(L) 32.0 - 37.0 g/dL LAB HEMETOLOGY METHOD 10/25/2024 2:21 PM [facility] RDW 18.9(H) 11.0 - 15.0 % LAB HEMETOLOGY METHOD 10/25/2024 2:21 PM [facility] Platelets 432(H) 130 - 400 K/mcL LAB HEMETOLOGY METHOD 10/25/2024 2:21 PM [facility] MPV 11.9(H) 7.0 - 11.0 FL LAB HEMETOLOGY METHOD 10/25/2024 2:21 PM [facility] NRBC 0.1 <1.0 % LAB HEMETOLOGY METHOD 10/25/2024 2:21 PM [facility] NRBC Absolute 0.02 <0.10 K/mcL LAB HEMETOLOGY METHOD 10/25/2024 2:21 PM [facility] Blood Venous blood specimen / Unknown Venipuncture / Unknown 10/25/2024 6:59 AM EST 10/25/2024 12:46 PM EST us Radha Gonzales MD LAB BLOOD ORDERABLES Final Res ult [facility] [address] [place] [address], [place] [phone] * (ABNORMAL) Basic metabolic panel (10/25/2024 6:59 AM EST) Sodium 143 133 - 145 mmol/L LAB CHEMISTRY METHOD 10/25/2024 1:34 PM [facility] Potassium 3.1(L) 3.5 - 5.5 mmol/L LAB CHEMISTRY METHOD 10/25/2024 1:34 PM [facility] Chloride 103 96 - 110 mmol/L LAB CHEMISTRY METHOD 10/25/2024 1:34 PM [facility] CO2 32 21 - 32 mmol/L LAB CHEMISTRY METHOD 10/25/2024 1:34 PM [facility] Anion Gap 8 3 - 11 LAB CHEMISTRY METHOD 10/25/2024 1:34 PM [facility] Glucose 68(L) 70 - 100 mg/dL LAB CHEMISTRY METHOD 10/25/2024 1:34 PM [facility] BUN 75(H) 5 - 25 mg/dL LAB CHEMISTRY METHOD 10/25/2024 1:34 PM [facility] Creatinine 1.67(H) 0.70 - 1.30 mg/dL LAB CHEMISTRY METHOD 10/25/2024 1:34 PM [facility] eGFR 43(L) >=60 mL/min/1. 73m2 LAB CHEMISTRY METHOD 10/25/2024 1:34 PM [facility] Comment:Calculation based on the Chronic Kidney Disease Epidemiology Collaboration (CKD-EPI) equation refit without adjustment for race. BUN/Creatinine Ratio 44.9 LAB CHEMISTRY METHOD 10/25/2024 1:34 PM EST [facility] Calcium 9.1 8.5 - 10.5 mg/dL LAB CHEMISTRY METHOD 10/25/2024 1:34 PM EST [facility] Blood Venous blood specimen / Unknown Venipuncture / Unknown 10/25/2024 6:59 AM EST 10/25/2024 12:46 PM EST us Radha Gonzales MD LAB BLOOD ORDERABLES Final Res ult [facility] [address] [place] [address], documented in this encounter Visit Diagnoses Diagnosis Encounter for other general examination documented in this encounter Care Teams [employer] Relationship Specialty Start Date End Date Brennan Tyson MD [address] [place] [address] PCP - General Internal Medicine 09/25/12 documented as of this encounter
== END 2025-04-07 14:28 | disposition home or self-care (01) ==
LOC: HO.HKAS 13:53
PROVIDERS: PCP Internal Medicine; Visit Provider Internal Medicine Nephrology
DX: N18.31 Chronic kidney disease, stage 3a (principal); Z90.5 Acquired absence of kidney; I10 Essential (primary) hypertension
CPT/HCPCS: 99214

== ENCOUNTER → 2025-04-07 13:53 | Outpatient (BNVA) | payer MEDICARE, MEDICAID, SELFPAY | PROVIDERS: PCP Internal Medicine; Visit Provider Internal Medicine Nephrology | DX: I12.9 Hypertensive chronic kidney disease with stage 1 through stage 4 chronic kidney disease, or unspecified chronic kidney disease (principal); N18.31 Chronic kidney disease, stage 3a; Z90.5 Acquired absence of kidney | CPT/HCPCS: 99212 ==